=== PATIENT | male | born 1960 | race Caucasian/White ===

== ENCOUNTER → 2017-10-01 12:32 | Outpatient (CLI) | payer MEDICARE, MEDICAID, SELFPAY ==
[2017-10-01 13:17] LABS: Absolute Lymphocyte Count 2.51 X10^3/ul (0.83-4.51); Absolute Neutrophil Count 8.5 X10^3/uL (2.0-7.7); Basophil# 0.09 X10^3/uL; Basophil% 0.7 % (0-1); Eosinophil# 0.52 X10^3/uL; Eosinophils% 4.1 % (0-5); Hematocrit 42.7 % (40-54); Hemoglobin 14.1 g/dl (13.0-16.5); Lymphocyte # 2.51 X10^3/ul (4.0); Lymphocyte % 19.7 % (19-41); Mean Corpuscular Hgb 29.9 pg (27.0-32.0); Mean Corpuscular Volume 90.7 fL (80-94); Mean Platelet Vol. 9.8 fl (6.2-12.0); Monocyte# 1.14 X10^3/uL; Monocyte% 8.9 % (0-10); Neutrophil # 8.47 X10^3/uL (2.7-7.7); Neutrophil % 66.4 % (47-70); Platelet Count 265 K/mm3 (150-450); RBC Distribution Width CV 13.3 % (11.6-14.6); RBC Distribution Width SD 43.6 fl (35.1-43.9); Red Blood Count 4.71 M/mm3 (4.6-6.2); White Blood Count 12.8 K/mm3 (4.4-11.0)
[2017-10-01 13:19] LABS: POSITIVE COUNT NO; POSITIVE DIFFERENTIAL NO; POSITIVE MORPHOLOGY NO
[2017-10-01 13:41] LABS: ALB/GLOB Ratio 0.9 RATIO (0.9-2.4); AST(SGOT) 31 U/L (15-37); Alanine Aminotransfer ALT/SGPT 31 U/L (16-61); Albumin, Serum 3.9 g/dL (3.2-5.0); Alkaline Phosphatase 81 U/L (45-117); Anion Gap 9 (5-15); BUN 18 mg/dL (7-18); BUN/Creat Ratio 17.3 RATIO (10-20); Calcium,Total 9.1 mg/dL (8.5-10.1); Chloride 105 mmol/L (98-107); Creatinine, Serum 1.04 mg/dL (0.70-1.30); EST Glomerular Filtration Rate 78 mL/min (>60); Est Glom Filt Rate - Afr Amer 95 mL/min (>60); Globulin 4.5 g/dL (2.2-4.2); Glucose 83 mg/dL (74-106); Protein, Total 8.4 g/dL (6.4-8.2); Sodium Level 141 mmol/L (136-145)
== END ==
PROVIDERS: Family Provider Family Medicine Geriatric Medicine; PCP Family Medicine Geriatric Medicine; Visit Provider Family Medicine Geriatric Medicine
DX: R53.83 Other fatigue (principal)
CPT/HCPCS: 36415; 80053; 84443; 85025

== ENCOUNTER → 2017-12-01 15:52 | Outpatient (CLI) | payer MEDICARE, MEDICAID, SELFPAY ==
--- NOTE | 2017-12-01 15:59 | CT_ITS ---
STUDY: CT BRAIN WITHOUT CONTRAST REASON FOR EXAM: Male, 57 years old. Parkinson's disease RADIATION DOSAGE (If Supplied By Facility): CTDIvol = ( 44.99 ) mGy, DLP = ( 779.24 ) mGycm TECHNIQUE: Transaxial CT imaging of the brain was performed without administration of intravenous contrast material. Individualized dose optimization techniques were used for this CT. COMPARISON: None. FINDINGS: Normal soft tissue structures. The calvarium is intact. There is a nasal bone fracture of indeterminate age. There is moderate cerebral atrophy with widening of the extra-axial spaces and ventricular dilatation. Normal white matter tracts of the cerebral hemispheres. Normal basal ganglia and thalami. Normal brainstem. There is mild cerebellar atrophy. There is no intracranial hemorrhage. There are no findings of an acute ischemic infarction. Normal visualized paranasal sinuses. CT/Brain/Head without Contrast IMPRESSION: Chronic involutional changes of the brain. Nasal bone fracture of indeterminate age. Electronically Signed: Wan Leach MD at 16:23 EDT , Service support ,
[2017-12-01 17:44] LABS: Absolute Lymphocyte Count 2.36 X10^3/ul (0.83-4.51); Absolute Neutrophil Count 5.5 X10^3/uL (2.0-7.7); Basophil# 0.03 X10^3/uL; Basophil% 0.3 % (0-1); Eosinophil# 0.21 X10^3/uL; Eosinophils% 2.3 % (0-5); Hematocrit 19.2 % (40-54); Hemoglobin 6.7 g/dl (13.0-16.5); Lymphocyte # 2.36 X10^3/ul (4.0); Lymphocyte % 25.3 % (19-41); Mean Corp Hgb Conc 34.9 g/gl (32-36); Mean Corpuscular Hgb 32.7 pg (27.0-32.0); Mean Corpuscular Volume 93.7 fL (80-94); Mean Platelet Vol. 10.5 fl (6.2-12.0); Monocyte# 1.18 X10^3/uL; Monocyte% 12.7 % (0-10); Neutrophil # 5.52 X10^3/uL (2.7-7.7); Neutrophil % 59.3 % (47-70); Platelet Count 145 K/mm3 (150-450); RBC Distribution Width CV 14.1 % (11.6-14.6); RBC Distribution Width SD 48.1 fl (35.1-43.9); Red Blood Count 2.05 M/mm3 (4.6-6.2); White Blood Count 9.3 K/mm3 (4.4-11.0)
[2017-12-01 17:45] LABS: POSITIVE COUNT NO; POSITIVE DIFFERENTIAL NO; POSITIVE MORPHOLOGY NO
[2017-12-01 17:50] LABS: AST(SGOT) 25 U/L (15-37); Alanine Aminotransfer ALT/SGPT 17 U/L (16-61); Albumin, Serum 4.3 g/dL (3.2-5.0); Alkaline Phosphatase 70 U/L (45-117); Anion Gap 11 (5-15); BUN 16 mg/dL (7-18); BUN/Creat Ratio 15.8 RATIO (10-20); Calcium,Total 9.1 mg/dL (8.5-10.1); Chloride 99 mmol/L (98-107); Creatinine, Serum 1.01 mg/dL (0.70-1.30); EST Glomerular Filtration Rate 81 mL/min (>60); Est Glom Filt Rate - Afr Amer 98 mL/min (>60); Globulin 4.2 g/dL (2.2-4.2); Glucose 80 mg/dL (74-106); PSA,Total - Annual Screen 0.58 ng/mL (0.00-4.00); Potassium 3.8 mmol/L (3.5-5.1); Protein, Total 8.5 g/dL (6.4-8.2); Sodium Level 137 mmol/L (136-145); Thyroid Stim Hormone (TSH) 2.29 uIU/mL (0.358-3.74)
[2017-12-01 18:08] LABS: Phenytoin (Dilantin) Level 14.6 mL (10.0-20.0); Valproic Acid (Depakene) Level 72 ug/mL (50-100)
== END ==
PROVIDERS: Family Provider Family Medicine Geriatric Medicine; PCP Family Medicine Geriatric Medicine; Referring Provider Family Medicine Geriatric Medicine; Visit Provider Family Medicine Geriatric Medicine
DX: G20 Parkinson's disease (principal); R41.0 Disorientation, unspecified
CPT/HCPCS: 70450

== ENCOUNTER → 2017-12-01 16:23 | Outpatient (CLI) | payer MEDICARE, MEDICAID, SELFPAY | PROVIDERS: Family Provider Family Medicine Geriatric Medicine; PCP Family Medicine Geriatric Medicine; Visit Provider Family Medicine Geriatric Medicine | DX: R53.83 Other fatigue (principal); Z12.5 Encounter for screening for malignant neoplasm of prostate; F05 Delirium due to known physiological condition; G40.909 Epilepsy, unspecified, not intractable, without status epilepticus; G20 Parkinson's disease; R41.0 Disorientation, unspecified | CPT/HCPCS: 36415; 70450; 80053; 80164; 80184; 80185; 84153; 84443; 85025; G0103 ==

== ENCOUNTER 2017-12-02 09:18 | Outpatient (CLI) | payer MEDICARE, MEDICAID, SELFPAY ==
[2017-12-02] VITALS (7 sets, daily range): BP systolic 93–124; BP diastolic 67–87; PULSE 64–80; RESP 12–18; TEMP 35.8–36.8; O2SAT 95–100; BMI 21.9
[2017-12-02] MEDS: Furosemide 20 MG/2 ML VIAL IV (15:41)
--- NOTE | 2017-12-02 16:04 | NURSING ---
REPORT CALLED TO JEANIE JIMENEZ ON [facility], PT BEING TRANSPORTED TO [facility] TO COMPLETE TREATMENT SINCE THIS DEPARTMENT IS CLOSING. PATIENT AWARE AND AGREES
== END 2017-12-02 18:33 | disposition home or self-care (01) ==
LOC: MEDOUTP 11:36 → MS2 17:02
PROVIDERS: Family Provider Family Medicine Geriatric Medicine; PCP Family Medicine Geriatric Medicine; Referring Provider Family Medicine Geriatric Medicine; Visit Provider Family Medicine Geriatric Medicine
DX: D64.9 Anemia, unspecified (principal)
CPT/HCPCS: 36415; 36430; 86850; 86900; 86920; 86922; J7040; P9016; A4216; J1940

== ENCOUNTER → 2017-12-03 10:00 | Outpatient (CLI) | payer MEDICARE, MEDICAID, SELFPAY ==
[2017-12-03 12:13] LABS: Absolute Lymphocyte Count 2.46 X10^3/ul (0.83-4.51); Absolute Neutrophil Count 3.6 X10^3/uL (2.0-7.7); Basophil# 0.02 X10^3/uL; Basophil% 0.3 % (0-1); Eosinophil# 0.24 X10^3/uL; Eosinophils% 3.2 % (0-5); Hematocrit 46.2 % (40-54); Hemoglobin 15.3 g/dl (13.0-16.5); Lymphocyte # 2.46 X10^3/ul (4.0); Lymphocyte % 32.9 % (19-41); Mean Corp Hgb Conc 33.1 g/gl (32-36); Mean Corpuscular Hgb 30.4 pg (27.0-32.0); Mean Corpuscular Volume 91.7 fL (80-94); Mean Platelet Vol. 10.4 fl (6.2-12.0); Monocyte# 1.13 X10^3/uL; Monocyte% 15.1 % (0-10); Neutrophil % 48.2 % (47-70); POSITIVE COUNT NO; POSITIVE DIFFERENTIAL NO; POSITIVE MORPHOLOGY NO; Platelet Count 157 K/mm3 (150-450); RBC Distribution Width CV 15.2 % (11.6-14.6); RBC Distribution Width SD 50.8 fl (35.1-43.9); Red Blood Count 5.04 M/mm3 (4.6-6.2); White Blood Count 7.5 K/mm3 (4.4-11.0)
== END ==
PROVIDERS: Family Provider Family Medicine Geriatric Medicine; PCP Family Medicine Geriatric Medicine; Visit Provider Family Medicine Geriatric Medicine
DX: D64.9 Anemia, unspecified (principal)
CPT/HCPCS: 36415; 85025

== ENCOUNTER → 2017-12-10 11:18 | Outpatient (CLI) | payer MEDICARE, MEDICAID, SELFPAY ==
[2017-12-10 11:52] LABS: Absolute Lymphocyte Count 2.03 X10^3/ul (0.83-4.51); Absolute Neutrophil Count 7.6 X10^3/uL (2.0-7.7); Basophil# 0.02 X10^3/uL; Basophil% 0.2 % (0-1); Eosinophil# 0.18 X10^3/uL; Eosinophils% 1.6 % (0-5); Hematocrit 47.1 % (40-54); Hemoglobin 15.3 g/dl (13.0-16.5); Lymphocyte # 2.03 X10^3/ul (4.0); Mean Corp Hgb Conc 32.5 g/gl (32-36); Mean Corpuscular Hgb 30.1 pg (27.0-32.0); Mean Corpuscular Volume 92.5 fL (80-94); Mean Platelet Vol. 10.1 fl (6.2-12.0); Monocyte# 1.51 X10^3/uL; Monocyte% 13.4 % (0-10); Neutrophil # 7.55 X10^3/uL (2.7-7.7); Neutrophil % 66.7 % (47-70); Platelet Count 127 K/mm3 (150-450); RBC Distribution Width CV 13.8 % (11.6-14.6); RBC Distribution Width SD 46.5 fl (35.1-43.9); Red Blood Count 5.09 M/mm3 (4.6-6.2); White Blood Count 11.3 K/mm3 (4.4-11.0)
[2017-12-10 11:53] LABS: Differential Indicated SCAN CRITERIA MET; POSITIVE COUNT NO; POSITIVE DIFFERENTIAL YES; POSITIVE MORPHOLOGY NO
--- NOTE | 2017-12-10 12:57 | RAD_ITS ---
STUDY: X-RAY - THORACIC SPINE REASON FOR EXAM: Male, 57 years old. Fall and pain TECHNIQUE: 3 view(s) of the thoracic spine were obtained. # of Images: 4 COMPARISON: None. FINDINGS: Age-indeterminate compression deformities of T8, T9, and T12 with mild loss of height at T12 and moderate loss of height of T8 and T9. Age-indeterminate compression deformities of T4 and T5 with moderate to severe loss of height at those levels. Soft tissues are unremarkable. RAD/Thoracic Spine 3 Views IMPRESSION: Multiple age indeterminate thoracic compression deformities. Consider CT or MRI correlation if possible. Electronically Signed: Dante Ayala MD at 7:51 EDT Tel , Service support ,
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
== END ==
PROVIDERS: Family Provider Family Medicine Geriatric Medicine; PCP Family Medicine Geriatric Medicine; Referring Provider Family Medicine Geriatric Medicine; Visit Provider Family Medicine Geriatric Medicine
DX: M54.6 Pain in thoracic spine (principal); W19.XXXA Unspecified fall, initial encounter; D64.9 Anemia, unspecified
CPT/HCPCS: 36415; 72072; 72100; 85025

== ENCOUNTER 2017-12-12 17:42 | Inpatient (IN) | payer MEDICARE, MEDICAID, SELFPAY ==
[2017-12-12] VITALS (7 sets, daily range): BP systolic 103–122; BP diastolic 59–98; PULSE 97–109; RESP 16–28; TEMP 36.8–37.4; O2SAT 85–98; BMI 24.0; BMI 24.1
--- NOTE | 2017-12-12 17:58 | CT_ITS ---
STUDY: CT ABDOMEN AND PELVIS WITHOUT CONTRAST REASON FOR EXAM: Male, 57 years old. Fall. Rib pain. RADIATION DOSAGE (If Supplied By Facility): CTDIvol = ( 14.55 ) mGy, DLP = ( 1299.54 ) mGycm TECHNIQUE: Transaxial images were obtained from the dome of the diaphragm to the symphysis pubis without oral contrast, and without intravenous contrast. Sagittal and coronal images were reconstructed. Individualized dose optimization techniques were used for this CT. COMPARISON: None. FINDINGS: Limited views through the lower chest show mild atelectasis or scarring changes in both posterior lung bases and probable scarring in the right posterior costophrenic angle. Normal liver. There are multiple gallstones. Normal spleen. Normal pancreas. Normal bilateral adrenal glands. Normal right kidney. Normal left kidney. Evaluation of the GI tract is limited by absence of oral contrast. Cannot exclude stomach wall thickening. No dilated loops of bowel or evidence for obstruction. Cannot exclude segmental thickening of the whelan of the small or large bowel. Cannot exclude enteritis or colitis. Moderate diffuse fecal retention. Appendix within normal limits. Normal abdominal aorta. Normal inferior vena cava. Normal retroperitoneum. Distended urinary bladder. There is enlargement of the prostate gland. Normal abdominal wall. There are diffuse degenerative changes of the visualized lumbar spine. There is diffuse demineralization. There is a right hip arthroplasty. CT/Abdomen/Pelvis without Cont IMPRESSION: There is no definite acute abnormality. No acute fractures are seen. There is cholelithiasis. Electronically Signed: Dayron Cordova MD at 19:25 EDT , Service support ,
--- NOTE | 2017-12-12 17:59 | CT_ITS ---
STUDY: CT CHEST WITHOUT CONTRAST REASON FOR EXAM: Male, 57 years old. Fall. Rib pain. RADIATION DOSAGE (If Supplied By Facility): CTDIvol = ( 14.55 ) mGy, DLP = ( 1299.54 ) mGycm TECHNIQUE: Transaxial imaging was performed without the administration of intravenous contrast material. Individualized dose optimization techniques were used for this CT. COMPARISON: None. FINDINGS: Hyperexpansion of the lungs and evidence for chronic pulmonary disease with probable mild interstitial scarring and fibrosis. Streaky atelectasis or scarring in both posterior lung bases. Thickening in both posterior costophrenic angles consistent with scarring. Right apical scarring. No definite infiltrates. No pneumothorax. No effusions. Normal heart and pericardium. Normal mediastinum. Normal hilar regions. Normal unenhanced pulmonary arteries. Normal aorta arch and descending thoracic aorta. Skeletal structures show demineralization greater than expected for age, degenerative changes throughout the bones, and numerous compression fractures throughout the thoracic spine of indeterminate age. Acute compression fractures cannot be excluded. There are also old nondisplaced rib fractures. No definite acute rib fractures are seen. CT/Chest without Contrast IMPRESSION: COPD with areas of fibrosis greater than expected for age. Demineralization and degenerative changes throughout the skeletal structures. Numerous compression fractures of the thoracic spine of indeterminate age. These findings are all also advanced for age. Electronically Signed: Dayron Cordova MD at 19:30 EDT , Service support ,
--- NOTE | 2017-12-12 17:59 | RAD_ITS ---
STUDY: X-RAY - LEFT FEMUR REASON FOR STUDY: Male, 57 years old. Fall. Pain. TECHNIQUE: Radiological exam, femur, minimum 2 views COMPARISON: None. FINDINGS: Abnormal configuration of the junction of the femoral head and neck consistent with fracture although not very well delineated. On further review of the CT of the abdomen and pelvis of the same day, there is in fact an impacted fracture of the left femoral neck. IMPRESSION: Impacted nondisplaced fracture of the left femoral neck with no dislocation of the hip. Electronically Signed: Dayron Cordova MD at 19:31 EDT , Service support , RAD/Femur Min 2 Views
--- NOTE | 2017-12-12 18:05 | ED.DCSUM_ITS ---
- ER Visit Summary Date of Service: 12/12/17 Chief Complaint: Fall History of Present Illness: The patient is a 57 M with history of Parkinson's and seizures. Patient states that he fell around 9 AM this morning. He is not sure if his feet just got tangled or if he got lightheaded. He has reportedly had multiple falls recently. He is been able to ambulate with a walker since that time. He is complaining of pain to the right lower ribs as well as to the proximal medial left thigh. He has not yet taken anything for pain. He denies striking his head or loss of consciousness Physical Examination: Blood pressure is 103/84, temperature 98.2, heart rate 107, respiratory rate 16, pulse ox 94% on room air. Patient sitting upright in bed. He is in no acute distress. Head neck examination reveals no sign of trauma. Heart is slightly tachycardic and regular. Lung sounds are clear with good air movement bilaterally. He does have reproducible tenderness of the right lower anterior ribs. There is no crepitus. There are no abrasions or ecchymosis noted. Abdomen is soft with epigastric tenderness. There is no guarding or rebound. Lower extremity examination reveals mild tenderness over the medial proximal left thigh. There is no pain with logroll. He has old appearing abrasions noted to the anterior left knee. Neuro exam reveals Parkinson's tremor. There are no focal deficits noted. Test Results: Left femur x-rays reveal an impacted nondisplaced fracture of the left femoral neck. CT the chest shows COPD changes. There are numerous compression fractures of indeterminate age. CT abdomen pelvis shows no definite acute abnormality. CBC was a white count 11.8 with 140,000 platelet count. Chemistry studies significant for potassium 3.4. Dilantin level is 16.1. Phenobarbital is high at 52.4. Emergency Department Course and Treatment: Patient was given morphine and Zofran along with IV fluids. On repeat evaluation he is resting comfortably. Patient had previously had surgery with Dr. Duke. I spoke with Dr. Cardenas as well as the hospitalist. Treatment Plan: [] Disposition: Admit Impression: 1. Fall with left femoral neck fracture 2. Supratherapeutic phenobarbital level. This note was generated with [employer] dictation software. It may contain incorrect words, spelling, and punctuation that were not noted in review of the chart prior to signing ED Disposition - Plan for ED Patient: Chief Complaint: Fall Referrals: Jose Alvarez Chi, MD [Primary Care Provider] -
[2017-12-12] MEDS: 0.9% Normal Saline 1,000 ML 150 ML IV (18:07)
[2017-12-12] MEDS: Morphine 4 MG/ML Syringe IV (18:07)
[2017-12-12] MEDS: Ondansetron 4 MG/2 ML Vial IV (18:07)
[2017-12-12 18:15] LABS: Absolute Lymphocyte Count 1.37 X10^3/ul (0.83-4.51); Absolute Neutrophil Count 9.3 X10^3/uL (2.0-7.7); Basophil# 0.02 X10^3/uL; Basophil% 0.2 % (0-1); Eosinophil# 0.03 X10^3/uL; Eosinophils% 0.3 % (0-5); Hematocrit 46.7 % (40-54); Hemoglobin 15.2 g/dl (13.0-16.5); Lymphocyte # 1.37 X10^3/ul (4.0); Lymphocyte % 11.6 % (19-41); Mean Corp Hgb Conc 32.5 g/gl (32-36); Mean Corpuscular Hgb 30.1 pg (27.0-32.0); Mean Corpuscular Volume 92.5 fL (80-94); Mean Platelet Vol. 9.8 fl (6.2-12.0); Monocyte# 1.07 X10^3/uL; Neutrophil # 9.32 X10^3/uL (2.7-7.7); Neutrophil % 78.7 % (47-70); Platelet Count 140 K/mm3 (150-450); RBC Distribution Width CV 13.8 % (11.6-14.6); RBC Distribution Width SD 45.9 fl (35.1-43.9); Red Blood Count 5.05 M/mm3 (4.6-6.2); White Blood Count 11.8 K/mm3 (4.4-11.0)
[2017-12-12 18:16] LABS: POSITIVE COUNT NO; POSITIVE DIFFERENTIAL NO; POSITIVE MORPHOLOGY NO
[2017-12-12 18:26] LABS: Anion Gap 9 (5-15); BUN 15 mg/dL (7-18); BUN/Creat Ratio 18.1 RATIO (10-20); Calcium,Total 8.6 mg/dL (8.5-10.1); Chloride 98 mmol/L (98-107); Creatinine, Serum 0.83 mg/dL (0.70-1.30); EST Glomerular Filtration Rate 101 mL/min (>60); Est Glom Filt Rate - Afr Amer 123 mL/min (>60); Glucose 124 mg/dL (74-106); Potassium 3.4 mmol/L (3.5-5.1); Sodium Level 134 mmol/L (136-145)
[2017-12-12 18:55] LABS: Phenytoin (Dilantin) Level 16.1 mL (10.0-20.0)
--- NOTE | 2017-12-12 18:56 | ED.RN ---
PT PHENOBARB LEVEL 52.4. DR. PONCE INFORMED.
--- NOTE | 2017-12-12 19:21 | ED.RN ---
PATIENT'S O2 SATS WERE DROPPING TO 81% WHILE HE WAS SLEEPING. PATIENT WAS PUT ON 2L OF O2 AND WAS AROUSED AND SATS CAME BACK UP TO 98%.
--- NOTE | 2017-12-12 20:26 | PCM.HP.STD ---
Problem List (1) Nondisplaced fracture of neck of left femur Status: Acute (2) Multiple falls Status: Acute (3) Compression fx, thoracic spine Status: Acute History of Present Illness Date of Admission: 12/12/17 Chief Complaint: Multiple falls The patient is a 57 year old M with a significant history of Parkinson disease and epilepsy who presented with a fall on the same day of his admission. Also patient reports of excruciating pain in his left hip and in his right rib. At emergency department radiographic findings showed and Nondisplaced fracture of left femoral neck; numerous compression fractures of the thoracic spine of indeterminate age. ED doctor consulted orthopedic doctor who will see patient in a.m. Of note in the past week patient had multiple falls. It is reported that anytime patient have high phenobarbital levels patient falls. On admission at the ED patient was found to have elevated phenobarbital level. Past Medical History Medical History: Medical History (Last Reviewed 12/12/17 @ 21:51 by Jerad Tyler MD) BPH (benign prostatic hyperplasia) N40.0 Parkinson disease G20 Seizure disorder G40.909 Allergies No Known Allergies Allergy (Verified 12/12/17 17:43) Home Medications: Ambulatory Orders Medication Instructions Recorded atorvastatin 40 mg tablet 40 mg PO QHS 12/03/17 celecoxib 200 mg capsule 200 mg PO BID 12/03/17 divalproex 250 mg tablet,delayed 500 mg PO QHS 12/03/17 release levothyroxine 50 mcg capsule 50 mcg PO DAILY 12/03/17 mirtazapine 30 mg tablet 15 mg PO DAILY 12/03/17 phenobarbital 32.4 mg tablet 32.4 mg PO TID 12/03/17 phenytoin sodium extended 100 mg 300 mg PO DAILY 12/03/17 capsule tamsulosin 0.4 mg capsule 0.4 mg PO DAILY 12/03/17 Ergocalciferol [Vitamin D] 50,000 unit PO Q7D 12/12/17 Surgical History: Surgical History (Last Reviewed 12/13/17 @ 09:21 by Jerad Tyler MD) S/P hip replacement Z96.649 Surgical History: - - Patient with a prior Right hip replacement Smoking Status: Current every day smoker Tobacco Use: Chew Alcohol: None - *Family History Maternal Family History: Family History (Last Updated 12/12/17 @ 21:53 by Jerad Tyler MD) Mother Breast cancer Father Mouth cancer Review of Systems Constitutional: Denies: Chills, Fever, Weight Change HEENT: Denies: Head Aches, Sinus Congestion, Sinus Drainage Cardiovascular: Denies: Chest Pain, Palpitations Respiratory: Denies: Cough, Shortness of breath at rest, Sputum production Gastrointestinal: Denies: Abdominal Pain, Nausea, Vomiting Genitourinary: Denies: Dysuria Musculoskeletal: Denies: Joint Pain, Joint Tenderness Skin: Denies: Rash, Wounds Neurological: Denies: Numbness, Tingling, Focal weakness Psychiatric: Denies: Anxiety, Depression, Homicidal Ideations, Suicidal Ideations Hematologic/ Lymphatic: Denies: Easy Bruising, Easy Bleeding VTE Information - Inpt Only VTE Present on Admission: No VTE Mechan Device Prophylaxis: None VTE Pharm Prophylaxis ordered?: Yes Patient Problems: Active and Suspected Problems (Last Reviewed 12/12/17 @ 21:51 by Jerad Tyler MD) Nondisplaced fracture of neck of left femur (Acute) Multiple falls (Acute) Compression fx, thoracic spine (Acute) - Physical Exam General: Alert, Oriented x3, Cooperative HEENT: Atraumatic, PERRLA, EOMI, Normocephalic Neck: Supple, No JVD, Negative Carotid Bruits Lungs: Clear to auscultation, Normal air movement Cardiovascular: Regular rate, No murmurs Abdomen: Bowel Sounds Present, Soft, Non Tender Extremities: No edema, Capillary Refill Less than 3 Seconds, - - Right flank tenderness Skin: No rashes, No breakdown Musculoskeletal: - - Palpation of left hip did not produce any tenderness. Neurological: - - Noted to have bilateral hands tremor. Psych/Mental Status: Normal Affect, Appropriate Vital Signs Temp Pulse Resp BP Pulse Ox 99.3 F H 103 H 18 114/98 H 98 12/12/17 20:20 12/12/17 20:20 12/12/17 20:20 12/12/17 20:20 12/12/17 20:20 Oxygen Flow Rate (L/min) 2 Oxygen Delivery Method Nasal Cannula Weight: 71.9 kg Body Mass Index (BMI) 24.0 Laboratory Tests Past 24 Hrs 12/12/17 12/12/17 12/12/17 18:05 18:05 18:05 WBC 11.8 H RBC 5.05 Hgb 15.2 Hct 46.7 MCV 92.5 MCH 30.1 MCHC 32.5 RDW 13.8 RDW Differential 45.9 H Plt Count 140 L MPV 9.8 Immature Gran % (Auto) 0.200 Neut % (Auto) 78.7 H Lymph % (Auto) 11.6 L [place] % (Auto) 9.0 Eos % (Auto) 0.3 Baso % (Auto) 0.2 Absolute Neuts (auto) 9.3 H Absolute Lymphs (auto) 1.37 Total Counted Not Reportable Sodium 134 L Potassium 3.4 L Chloride 98 Carbon Dioxide 27.0 Anion Gap 9 BUN 15 Creatinine 0.83 Estim Creat Clear Calc 95.00 Est GFR (MDRD) Af Amer 123 Est GFR (MDRD) Non-Af 101 BUN/Creatinine Ratio 18.1 Glucose 124 H Calcium 8.6 Phenytoin 16.1 Phenobarbital 52.4 H* Assessment/Plan All Active Problems (Last Reviewed 12/12/17 @ 21:51 by Jerad Tyler MD) Nondisplaced fracture of neck of left femur (Acute) Multiple falls (Acute) Compression fx, thoracic spine (Acute) The patient is a 57 year old M with a significant history of Parkinson disease and epilepsy who presented with a fall and found to have elevated phenobarbital level and radiographic findings of Nondisplaced fracture of left femoral neck; and numerous compression fractures of the thoracic spine of indeterminate age. Impacted nondisplaced fracture of the left femoral neck with no dislocation of the hip Pain controlled with oxycodone as needed morphine as needed. Antiemetics and bowel regimen in the setting of narcotic use initiated. PT/INR ordered. Patient has no chest pain. Will order EKG for baseline Okay to proceed with surgery from medical standpoint. Orthopedic surgeon consulted. Celebrex continued Compression fracture of the thoracic spine of indeterminate age Pain control as above. Incentive spirometer to prevent pneumonia. We will defer further management to orthopedic. History of epilepsy Phenobarbital held at this time due to supratherapeutic level. Valproic acid continued Dilantin continued Consider conversation with neurology. Hypothyroidism Synthroid continued. Depression Remeron continued Parkinson disease Patient noted with no medication for Parkinson's Consider conversation with PCP. BPH Flomax continued Hyperlipidemia Lipitor continued. Tobacco abuse Patient chew tobacco Nicotine patch ordered Inpatient consult smoking cessation. DVT prophylaxis Subcutaneous heparin. Code Visit Inpatient E&M: 21078 Init Hosp L3
[2017-12-12 22:12] LABS: Valproic Acid (Depakene) Level 65 ug/mL (50-100)
[2017-12-12] MEDS: Morphine 2 MG/ML Syringe IV (22:15)
[2017-12-12] MEDS: Atorvastatin Calcium 40 MG Tablet PO (22:49)
[2017-12-12] MEDS: Celecoxib 200 MG Capsule PO (22:49)
[2017-12-12] MEDS: oxyCODONE 5 MG Tablet PO (22:49)
[2017-12-12] MEDS: Divalproex Sodium 250 MG Tablet 500 MG PO (22:49)
[2017-12-12] MEDS: Heparin Injection (Vial) 5,000 UNIT/ML VIAL 5000 UNIT SC (22:49)
[2017-12-12] MEDS: Mirtazapine 15 MG Tablet PO (22:49)
[2017-12-13] VITALS (17 sets, daily range): BP systolic 86–112; BP diastolic 62–81; PULSE 94–112; RESP 16–18; TEMP 36.2–37.1; O2SAT 88–100; BMI 24.0
--- NOTE | 2017-12-13 | HIP_PTH ---
PATIENT: MIKE ADAMS LOC: [facility] U#:[id number] AGE/SX: 57/M ROOM: [facility] [place] RE12/12/[address]: Dr. Dexter Vásquez MD : 1960 BED: 1 DIS: 12/15/2017 SPEC #: [id number] RECD: 12/13/17 15:00 STATUS: FLASH RAMOS #: [id number] AZUL: 12/13/17 00:[address]: Stevo Walden DEPT: SURGICAL PATHOLOGY RECD BY: Asa Rashid ENTERED: 12/13/17 15:00 SP TYPE: TOTAL HIP OTHR DR: MD Dr. Dexter Lui MD Dr. Steven Widmer, MD Dr. Tai Chi Kwok, MD Tissues: Hip, NOS Procedures: Decalcification bone/plaque Surgery Specimen Level IV Comments: @ Ordering doctor for DEC edited from to @ by KENY at 12/14/17 0935 @ Ordering doctor for SUIV edited from to @ by KENY at 12/14/17 0935 @ Submitting doctor edited from to @ by RGOOD at 12/14/17 0935 HEADER OPERATION: Total hip replacement PRE-OP DIAGNOSIS: Nondisplaced fracture of neck of left femur TISSUE SUBMITTED: Left hip bone and soft tissue MICROSCOPIC DIAGNOSIS Left hip bone and soft tissue, total hip replacement: Femoral head and detached pieces of bone with focal area of hemorrhage, clinically nondisplaced fracture of neck of left femur. A piece of dense fibroconnective tissue. SJ:sanna 12/16/17 MICROSCOPIC DESCRIPTION Slides are reviewed. GROSS DESCRIPTION Received in fixative is one container labeled with the patient's name and designated left hip bone and soft tissue. The specimen consists of a femoral head measuring 5 x 4.5 x 4.5 cm. The articular surface is smooth. The resection margin is irregular and hemorrhagic. Also present in the container are multiple detached pieces of bone and bone reamings measuring in aggregate 6 x 6 x 3 cm. A piece of angela, indurated tissue is noted measuring 3 x 1 x 0.5 cm. Channel Machine Operator sections are submitted in three cassettes as follows: 1 - indurated piece of tissue, entirely submitted, 2 - femoral head, 3 - detached pieces of bone. Cassettes 2 & 3 are submitted after decalcification. / Roel 12/13/17 CPT: 15624, [id number]
[2017-12-13] MEDS: Morphine 2 MG/ML Syringe IV (04:57)
--- NOTE | 2017-12-13 05:55 | EKG12_ITS ---
Test Reason : MORNING EKG Blood Pressure : / mmHG Vent. Rate : 097 BPM Atrial Rate : 097 BPM P-R Int : 144 ms QRS Dur : 100 ms QT Int : 360 ms P-R-T Axes : 068 124 049 degrees QTc Int : 457 ms Normal sinus rhythm Right ventricular hypertrophy Abnormal ECG No previous ECGs available Confirmed by BRETT LIEBERMAN ([id number]), primer expeditor and drier CARMINA BILLINGS ([id number]) on 12/21/2017 12:54:15 PM Referred By: DERIAN Confirmed By:BRETT LIEBERMAN
[2017-12-13 07:25] LABS: International Normalized Ratio 1.2; Prothrombin Time (Protime)PT. 14.7 SECONDS (11.7-14.9)
[2017-12-13 07:44] LABS: Anion Gap 9 (5-15); BUN 12 mg/dL (7-18); BUN/Creat Ratio 13.5 RATIO (10-20); Calcium,Total 8.2 mg/dL (8.5-10.1); Chloride 105 mmol/L (98-107); Creatinine, Serum 0.89 mg/dL (0.70-1.30); EST Glomerular Filtration Rate 93 mL/min (>60); Est Glom Filt Rate - Afr Amer 113 mL/min (>60); Glucose 112 mg/dL (74-106); Potassium 3.6 mmol/L (3.5-5.1); Sodium Level 141 mmol/L (136-145)
[2017-12-13 07:50] LABS: Absolute Lymphocyte Count 1.44 X10^3/ul (0.83-4.51); Absolute Neutrophil Count 5.4 X10^3/uL (2.0-7.7); Basophil# 0.02 X10^3/uL; Basophil% 0.3 % (0-1); Eosinophil# 0.19 X10^3/uL; Eosinophils% 2.4 % (0-5); Hematocrit 42.2 % (40-54); Hemoglobin 13.9 g/dl (13.0-16.5); Lymphocyte # 1.44 X10^3/ul (4.0); Lymphocyte % 18.3 % (19-41); Mean Corp Hgb Conc 32.9 g/gl (32-36); Mean Corpuscular Hgb 30.2 pg (27.0-32.0); Mean Corpuscular Volume 91.7 fL (80-94); Mean Platelet Vol. 10.1 fl (6.2-12.0); Monocyte# 0.81 X10^3/uL; Monocyte% 10.3 % (0-10); Neutrophil # 5.39 X10^3/uL (2.7-7.7); Neutrophil % 68.4 % (47-70); Platelet Count 124 K/mm3 (150-450); RBC Distribution Width CV 13.9 % (11.6-14.6); RBC Distribution Width SD 45.8 fl (35.1-43.9); White Blood Count 7.9 K/mm3 (4.4-11.0)
[2017-12-13 07:59] LABS: Thyroid Stim Hormone (TSH) 4.78 uIU/mL (0.358-3.74)
[2017-12-13 08:07] LABS: POSITIVE COUNT NO; POSITIVE DIFFERENTIAL NO; POSITIVE MORPHOLOGY NO
--- NOTE | 2017-12-13 08:11 | NURSING ---
report called to Mayra in [facility]. [facility] here to transport pt.
--- NOTE | 2017-12-13 09:40 | RAD_ITS ---
STUDY: X-RAY - FRONTAL AND LATERAL VIEWS OF THE HIPS REASON FOR EXAM: Male, 57 years old. Postop total hip replacement. TECHNIQUE: Radiological exam, hip, bilateral; 2 images COMPARISON: Frontal and lateral views of the left femur December 12, 2017. FINDINGS: There is a non-specific bowel gas pattern. Normal visualized soft tissue structures. There is diffuse demineralization of the osseous structures. There is mild narrowing of the visualized sacroiliac joints, consistent with degenerative osteoarthritic changes. Normal visualized bilateral iliac wings and sacrum. Normal bilateral superior and inferior pubic rami. Normal pubic symphysis. Normal bilateral ischial tuberosities. The patient has undergone prior right total hip arthroplasty, with a metal bipolar prosthesis in place. The patient has now undergone left total hip arthroplasty. Following resection of the femoral head and neck, a metal bipolar hip prosthesis was placed. The femoral and acetabular components appear well seated, and in anatomic alignment. Gas lucencies in the adjacent soft tissues are consistent with recent surgery. A number of metal skin shruthi are seen along the lateral soft tissues as well. There is no demonstrated acute fracture. RAD/Hip Min 2 Views (Portable) IMPRESSION: Status post left total hip arthroplasty. Electronically Signed: Jan Lee MD at 12:11 EDT , Service support ,
--- NOTE | 2017-12-13 10:56 | PCM.IMDPSTOP ---
Immediate Post-Op Note Date of Procedure: 12/13/17 Primary Surgeon/Physician: Stevo Walden jewelry consultant: Rudi Rhodes Pre-Operative Diagnosis: Displaced left subcapital hip fracture Post-Operative Diagnosis: same Surgery/Procedure Performed:: Left THR Description of Surgical Findings:: see op note Estimated Blood Loss: 100cc Specimen's removed: femoral head Type of Anesthesia:: General ASA Class: ASA3 Severe Disease - Admit VTE Documentation VTE Present on Admission: No VTE Pharm Prophylaxis ordered?: Yes
--- NOTE | 2017-12-13 10:59 | OP.PN_ITS ---
Immediate Post-Op Note Date of Procedure: 12/13/17 Primary Surgeon/Physician: Stevo Walden automotive repair technician: Rudi Rhodes Pre-Operative Diagnosis: Displaced left subcapital hip fracture Post-Operative Diagnosis: same Surgery/Procedure Performed:: Left THR Description of Surgical Findings:: see op note Estimated Blood Loss: 100cc Specimen's removed: femoral head Type of Anesthesia:: General ASA Class: ASA3 Severe Disease - Admit VTE Documentation VTE Present on Admission: No VTE Pharm Prophylaxis ordered?: Yes
--- NOTE | 2017-12-13 10:59 | PCM.OP.BLANK ---
Operative Report Date of Procedure: 12/13/17 Primary Surgeon/Physician: Stevo Walden operations support specialist: Rudi Rhodes PA-c operations support specialist: Pre-Operative Diagnosis: Displaced subcapital left hip fx Post-Operative Diagnosis: same Surgery/Procedure Performed: Left THR Estimated Blood Loss: 100cc Specimen's Removed: femoral head Type of Anesthesia: General ASA Class: ASA3 Severe Disease Implants: [Azar Accolade type 2 size 8 stem, 54 mm hemispherical cup with MDM liner ] Surgical Indications: Patient has a displace subcapital fracture in the [left ] hip. The pain affects their ability to enjoy life and complete activities of daily living without discomfort. Patient has consented to undergo the above procedure Procedure Description: The patient was greeted in the preoperative area the [left ] hip was marked with surgical marker preoperative antibiotics administered. The patient was then taken to or suite in stable condition. Preoperative tranexamic acid was also utilized. Once the patient was placed in the supine position on the operating room table and once adequate anesthesia was obtained they were then placed in the lateral decubitus position with the surgical hip facing the field. All bony prominences were well-padded. A commercial hip position was utilized. The appropriate extremity was then prepped and draped in usual sterile fashion. Ioban was placed on the skin. Surgical timeout was performed and surgery was commenced. A standard posterior approach to the hip was then performed. Incision was planned and carried out with a #10 blade scalpel. Dissection was then carried length of the incision to the IT band which was split proximally and distally. A Charnley retractor was then placed for soft tissue retraction exposing the piriformis. A standard posterior capsulotomy was performed. A midcervical fracture of the femoral neck was identified.. A femoral neck osteotomy guide was used to sweta the proximal femur. A femoral osteotomy was then created approximately 1 fingerbreadth above the lesser trochanter. This was measured and placed on the back table. Once this was complete acetabular retractors were placed anteriorly and posteriorly. Labrum was then removed from the acetabulum exposing the entire cup of the acetabulum. Sequential reaming was then commenced and the acetabulum was medialized and sequentially widened in order to accommodate appropriate size cup. The acetabular cup was then impacted into position to the appropriate depth referencing approximately 30? anteversion and 45? of inclination. Excellent purchase was obtained. An appropriate size MDM liner was then placed. Attention was then turned to the femoral preparation. The hip was placed in the 90/90 position and a lateralizing box osteotome was utilized. Femoral starting awl was used followed by sequential broaching to the appropriate size. Excellent purchase was obtained with the stem no stem subsidence and excellent rotational stability was confirmed. A calcar reamer was then used in the trial head neck was placed on the broach. The hip was then located and taken through full range of motion flexion internal and external rotation as well as extension. Excellent stability was noted no impingement was identified of the components and leg lengths appear to be appropriate. The hip was at this point dislocated and the trial femoral components were removed. The final femoral stem was then implanted and impacted to the appropriate depth. Again excellent purchase was obtained no stem subsidence or rotational instability was noted. The hip was once again trialed and confirmation of leg length and stability was performed. Soft tissue tension also appeared to be appropriate. At this point the hip was redislocated and the trunnion was cleaned and dried meticulously in the appropriate size MDM femoral head was placed on the clean dry trunnion using a 12/14 Guardado taper. The hip was once again relocated and again taken through full range of motion. I did inject a cocktail of postoperative pain medication in the deep and superficial tissues. Copious irrigation was performed. Anatomic closure of the piriformis tendon was performed through drill holes in the greater trochanter. A #1 Vicryl 0 Vicryl was utilized in subcutaneous tissue and surgical shruthi were placed in the skin. A well-padded nonadherent dressing was applied. Patient was taken to PACU in stable condition. No complications were identified. Will follow standard postop protocol for total hip arthroplasty. My certified pathology assistant played a vital role in the procedure beginning with positioning, holding retraction of soft tissues, positioning the leg to optimize visualization during the procedure and assisting with wound closure.
--- NOTE | 2017-12-13 11:44 | CASEMGMT ---
BARBARA GRAHAM Assesmment: Pt presented to ER with Nondisplaced fracture of L femur neck. Hx of Parkinson disease and epilepsy. Fall @ home. Pt in surgery @ time of assessment. rental clerk Mary Hernandez in room, able to speak with BARBARA GRAHAM. Per July, she is caregiver for pt, stating that I'm almost always with him. -Pt has been to [facility] in February,. CM will need to review PT/OT and speak with pt re: maria luisa planning. PCP: Dr. Alvarez Preferred Pharmacy: [facility] Insurance: [facility] Prescription Benefit:? yes Living Will/HPOA: none. Pt's caregiver states she and pt have discussed and he would Living Arrangements: One story home. Transportation: field care advocate drives. DME/HHC: uses walker. ? Plan: undetermined. Anticipate SNF vs Inpt Rehab. GIORGI Zuniga updated.
[2017-12-13 11:59] LABS: Hematocrit 44.8 % (40-54); Hemoglobin 14.4 g/dl (13.0-16.5); Mean Corp Hgb Conc 32.1 g/gl (32-36); Mean Corpuscular Volume 93.3 fL (80-94); Mean Platelet Vol. 9.7 fl (6.2-12.0); Platelet Count 126 K/mm3 (150-450); RBC Distribution Width CV 14.1 % (11.6-14.6); RBC Distribution Width SD 48.1 fl (35.1-43.9); White Blood Count 12.3 K/mm3 (4.4-11.0)
[2017-12-13 12:15] LABS: Scan Indicated on CBC? Y/N NO
[2017-12-13 12:16] LABS: Anion Gap 10 (5-15); BUN 11 mg/dL (7-18); BUN/Creat Ratio 12.1 RATIO (10-20); Calcium,Total 7.9 mg/dL (8.5-10.1); Chloride 107 mmol/L (98-107); Creatinine, Serum 0.91 mg/dL (0.70-1.30); EST Glomerular Filtration Rate 92 mL/min (>60); Est Glom Filt Rate - Afr Amer 111 mL/min (>60); Estimated Creatinine Clearance 86.65 ml/min; Glucose 127 mg/dL (74-106); Sodium Level 141 mmol/L (136-145); T4 Free Direct 1.19 ng/dL (0.76-1.46)
--- NOTE | 2017-12-13 12:21 | CASEMGMT ---
Social Work Note MS[facility] Collaboration with [facility] social services Christiane TATE regarding reported interest in completion of advanced directives. Patient currently in surgery right now, so unable to discuss with patient at this time. Spoke with BARBARA Garcia who reports that patient has history of placement at [facility] earlier in the year, uncertain whether patient would want to return to this facility, though rehab level of care may also be something to be looked at. This bond underwriter noted in chart that patient with diagnosis of Parkinson, so this diagnosis in addition to hip fracture may indicate possible qualification for rehab level of care. Noted in chart that patient has recently been using a walker for ambulation. Will need to see how patient does with PT and OT services before making determination as to what level care patient may need at discharge. Updated Lynsey TATE. Plan: Social work to follow and plan to see patient at a later time about interest in advanced directive completion. Collaboration with BARBARA GRAHAM and monitor for PT/OT evaluations and if indicated follow up to assist with referrals to SNF versus rehab levels of care. -ZAIN Adames, SOLDERING TECHNICIAN
--- NOTE | 2017-12-13 14:02 | CASEMGMT ---
Addendum entered by Christiane Lemus 12/13/17 14:38: SW did receive a message from [facility] that they are able to accept pt if pt is agreeable to RU Original Note: Social Work Note SW updated that pt's caregiver July would like to complete advanced directives. SW in to speak with pt and pt's caregiver July. GIORGI informed July that pt just had surgery today and this worker would like to wait till tomorrow to complete advanced directives as pt just got back from surgery. GIORGI informed July that typically this worker will be available on the floor around 9:00am. July states that she can be at [facility] around then. GIORGI explained that pt will need to be alert and orientated and able to state his wishes for advanced directives. GIORGI also explained that this worker is awaiting PT/OT evaluations to determine discharge plans. July states that pt was previously independent and she has been his caregiver for around eight years. GIORGI educated July to RU as pt qualifies for RU with a hip fracture. GIORGI informed July that PT/OT will work with pt and will determine what level of care pt will need at discharge. July states understanding. SW to meet with pt and pt's caregiver July tomorrow once PT/OT evaluates pt to discuss discharge plans. GIORGI will also completed advanced directives with pt tomorrow. Plan: TBD Christiane Lemus RIGGING LOFT REPAIRER, INBOUND CUSTOMER SERVICE REPRESENTATIVE
--- NOTE | 2017-12-13 14:46 | PN_ITS ---
<Pepito Lopez - Last Filed: 12/13/17 14:31> Patient Problems: Active and Suspected Problems (Last Reviewed 12/12/17 @ 21:51 by Jerad Tyler MD) Nondisplaced fracture of neck of left femur (Acute) Multiple falls (Acute) Compression fx, thoracic spine (Acute) Subjective: Pt resting comfortably in bed NAD. No SOB, cough, nausea, vomiting. Sensation intact. - Physical Exam General: Alert, Oriented x3, Cooperative HEENT: Atraumatic, PERRLA, EOMI, Normocephalic Neck: Supple, No JVD, Negative Carotid Bruits Lungs: Clear to auscultation, Normal air movement Cardiovascular: Regular rate, No murmurs Abdomen: Bowel Sounds Present, Soft, Non Tender Extremities: No edema, Capillary Refill Less than 3 Seconds Skin: No rashes, No breakdown Musculoskeletal: No Tenderness to Palpation of Joints or Extremities Neurological: Cranial nerves II-XII grossly intact Psych/Mental Status: Normal Affect, Appropriate, Alert and oriented to time, place, person, mood and affect Vital Signs Temp Pulse Resp BP Pulse Ox 98.2 F 103 H 16 109/70 100 12/13/17 13:24 12/13/17 13:24 12/13/17 13:24 12/13/17 13:24 12/13/17 13:24 Oxygen Flow Rate (L/min) 2 Oxygen Delivery Method Nasal Cannula Weight: 158 lb 8.198 oz Body Mass Index (BMI) 24.0 Intake and Output for Last 24 Hours 12/11/17 12/12/17 12/13/17 23:59 23:59 23:59 Intake Total 2155 / 2155 Output Total 2240 / 2240 Balance -85 / -85 Laboratory Tests Past 24 Hrs 12/12/17 12/12/17 12/12/17 18:05 18:05 18:05 WBC 11.8 H RBC 5.05 Hgb 15.2 Hct 46.7 MCV 92.5 MCH 30.1 MCHC 32.5 RDW 13.8 RDW Differential 45.9 H Plt Count 140 L MPV 9.8 Immature Gran % (Auto) 0.200 Neut % (Auto) 78.7 H Lymph % (Auto) 11.6 L [place] % (Auto) 9.0 Eos % (Auto) 0.3 Baso % (Auto) 0.2 Absolute Neuts (auto) 9.3 H Absolute Lymphs (auto) 1.37 Total Counted Not Reportable PT INR Sodium 134 L Potassium 3.4 L Chloride 98 Carbon Dioxide 27.0 Anion Gap 9 BUN 15 Creatinine 0.83 Estim Creat Clear Calc 95.00 Est GFR (MDRD) Af Amer 123 Est GFR (MDRD) Non-Af 101 BUN/Creatinine Ratio 18.1 Glucose 124 H Calcium 8.6 TSH Free T4 Phenytoin 16.1 Valproic Acid Phenobarbital 52.4 H* Blood Type Antibody Screen 12/12/17 12/13/17 12/13/17 18:05 06:55 06:55 WBC 7.9 RBC 4.60 Hgb 13.9 Hct 42.2 MCV 91.7 MCH 30.2 MCHC 32.9 RDW 13.9 RDW Differential 45.8 H Plt Count 124 L MPV 10.1 Immature Gran % (Auto) 0.300 Neut % (Auto) 68.4 Lymph % (Auto) 18.3 L [place] % (Auto) 10.3 H Eos % (Auto) 2.4 Baso % (Auto) 0.3 Absolute Neuts (auto) 5.4 Absolute Lymphs (auto) 1.44 Total Counted Not Reportable PT 14.7 INR 1.2 Sodium Potassium Chloride Carbon Dioxide Anion Gap BUN Creatinine Estim Creat Clear Calc Est GFR (MDRD) Af Amer Est GFR (MDRD) Non-Af BUN/Creatinine Ratio Glucose Calcium TSH Free T4 Phenytoin Valproic Acid 65 Phenobarbital Blood Type Antibody Screen 12/13/17 12/13/17 12/13/17 06:55 06:55 06:55 WBC RBC Hgb Hct MCV MCH MCHC RDW RDW Differential Plt Count MPV Immature Gran % (Auto) Neut % (Auto) Lymph % (Auto) [place] % (Auto) Eos % (Auto) Baso % (Auto) Absolute Neuts (auto) Absolute Lymphs (auto) Total Counted PT INR Sodium 141 Potassium 3.6 Chloride 105 Carbon Dioxide 27.0 Anion Gap 9 BUN 12 Creatinine 0.89 Estim Creat Clear Calc 88.60 Est GFR (MDRD) Af Amer 113 Est GFR (MDRD) Non-Af 93 BUN/Creatinine Ratio 13.5 Glucose 112 H Calcium 8.2 L TSH 4.78 H Free T4 Phenytoin Valproic Acid Phenobarbital Blood Type A NEGATIVE Antibody Screen NEGATIVE 12/13/17 12/13/17 11:49 11:49 WBC 12.3 H RBC 4.80 Hgb 14.4 Hct 44.8 MCV 93.3 MCH 30.0 MCHC 32.1 RDW 14.1 RDW Differential 48.1 H Plt Count 126 L MPV 9.7 Immature Gran % (Auto) Neut % (Auto) Lymph % (Auto) [place] % (Auto) Eos % (Auto) Baso % (Auto) Absolute Neuts (auto) Absolute Lymphs (auto) Total Counted PT INR Sodium 141 Potassium 4.0 Chloride 107 Carbon Dioxide 24.0 Anion Gap 10 BUN 11 Creatinine 0.91 Estim Creat Clear Calc 86.65 Est GFR (MDRD) Af Amer 111 Est GFR (MDRD) Non-Af 92 BUN/Creatinine Ratio 12.1 Glucose 127 H Calcium 7.9 L TSH Free T4 1.19 Phenytoin Valproic Acid Phenobarbital Blood Type Antibody Screen Medical Necessity - Tobacco Use Smoking Status: Current every day smoker Tobacco Use: Chew Assessment/Plan All Active Problems (Last Reviewed 12/12/17 @ 21:51 by Jerad Tyler MD) Nondisplaced fracture of neck of left femur (Acute) Multiple falls (Acute) Compression fx, thoracic spine (Acute) 1. Nondisplaced left femoral neck fracture - repaired today per ortho. PTOT. Suspect pathologic, possibly underlying osteoporosis. Multiple thoracic compression fractures as well. Calcium normal on presentation. Check PTH and Vit D. Mild leukocytosis likely reactive 2/2 acute fracture. Could be osteomalacia 2/2 phenytoin. 2. 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 3. Hypothyroid - tsh elevated, t4 normal. 4. Seizure disorder - continue home meds. 5. BPH - flomax 6. HLD - statin 7. mild thrombocytopenia - trend DVT ppx: as directed per ortho DC planning: SNF vs Rehab unit. This patient was seen by Pepito Lopez PA-C under the supervision of Doctor Fahad. <Dexter Vásquez F - Last Filed: 12/13/17 19:56> - Physical Exam Vital Signs Temp Pulse Resp BP Pulse Ox 98.3 F 96 16 93/67 96 12/13/17 19:30 12/13/17 19:30 12/13/17 19:30 12/13/17 19:30 12/13/17 19:30 Oxygen Flow Rate (L/min) 1 Oxygen Delivery Method Nasal Cannula Weight: 158 lb 8.198 oz Body Mass Index (BMI) 24.0 Intake and Output for Last 24 Hours 12/11/17 12/12/17 12/13/17 23:59 23:59 23:59 Intake Total 2544 / 2544 Output Total 2640 / 2640 Balance -96 / -96 Laboratory Tests Past 24 Hrs 12/12/17 12/13/17 12/13/17 18:05 06:55 06:55 WBC 7.9 RBC 4.60 Hgb 13.9 Hct 42.2 MCV 91.7 MCH 30.2 MCHC 32.9 RDW 13.9 RDW Differential 45.8 H Plt Count 124 L MPV 10.1 Immature Gran % (Auto) 0.300 Neut % (Auto) 68.4 Lymph % (Auto) 18.3 L [place] % (Auto) 10.3 H Eos % (Auto) 2.4 Baso % (Auto) 0.3 Absolute Neuts (auto) 5.4 Absolute Lymphs (auto) 1.44 Total Counted Not Reportable PT 14.7 INR 1.2 Sodium Potassium Chloride Carbon Dioxide Anion Gap BUN Creatinine Estim Creat Clear Calc Est GFR (MDRD) Af Amer Est GFR (MDRD) Non-Af BUN/Creatinine Ratio Glucose Calcium Vit D 1,25-Dihydroxy TSH Free T4 PTH Intact Valproic Acid 65 Blood Type Antibody Screen 12/13/17 12/13/17 12/13/17 06:55 06:55 06:55 WBC RBC Hgb Hct MCV MCH MCHC RDW RDW Differential Plt Count MPV Immature Gran % (Auto) Neut % (Auto) Lymph % (Auto) [place] % (Auto) Eos % (Auto) Baso % (Auto) Absolute Neuts (auto) Absolute Lymphs (auto) Total Counted PT INR Sodium 141 Potassium 3.6 Chloride 105 Carbon Dioxide 27.0 Anion Gap 9 BUN 12 Creatinine 0.89 Estim Creat Clear Calc 88.60 Est GFR (MDRD) Af Amer 113 Est GFR (MDRD) Non-Af 93 BUN/Creatinine Ratio 13.5 Glucose 112 H Calcium 8.2 L Vit D 1,25-Dihydroxy TSH 4.78 H Free T4 PTH Intact Valproic Acid Blood Type A NEGATIVE Antibody Screen NEGATIVE 12/13/17 12/13/17 12/13/17 11:49 11:49 15:02 WBC 12.3 H RBC 4.80 Hgb 14.4 Hct 44.8 MCV 93.3 MCH 30.0 MCHC 32.1 RDW 14.1 RDW Differential 48.1 H Plt Count 126 L MPV 9.7 Immature Gran % (Auto) Neut % (Auto) Lymph % (Auto) [place] % (Auto) Eos % (Auto) Baso % (Auto) Absolute Neuts (auto) Absolute Lymphs (auto) Total Counted PT INR Sodium 141 Potassium 4.0 Chloride 107 Carbon Dioxide 24.0 Anion Gap 10 BUN 11 Creatinine 0.91 Estim Creat Clear Calc 86.65 Est GFR (MDRD) Af Amer 111 Est GFR (MDRD) Non-Af 92 BUN/Creatinine Ratio 12.1 Glucose 127 H Calcium 7.9 L Vit D 1,25-Dihydroxy TSH Free T4 1.19 PTH Intact 94.6 H Valproic Acid Blood Type Antibody Screen 12/13/17 15:02 WBC RBC Hgb Hct MCV MCH MCHC RDW RDW Differential Plt Count MPV Immature Gran % (Auto) Neut % (Auto) Lymph % (Auto) [place] % (Auto) Eos % (Auto) Baso % (Auto) Absolute Neuts (auto) Absolute Lymphs (auto) Total Counted PT INR Sodium Potassium Chloride Carbon Dioxide Anion Gap BUN Creatinine Estim Creat Clear Calc Est GFR (MDRD) Af Amer Est GFR (MDRD) Non-Af BUN/Creatinine Ratio Glucose Calcium Vit D 1,25-Dihydroxy Pending TSH Free T4 PTH Intact Valproic Acid Blood Type Antibody Screen Code Visit Addendum: Dr. Vásquez I personally examined the patient and reviewed the chart. I agree with the above.-year-old male with history of seizures, compression fractures of thoracic spine, multiple falls presenting with a nondisplaced left femoral neck fracture. Given the number of fractures that it appears that he has had it is likely that he is suffering from osteoporosis possibly osteomalacia. On review of his medications the only medication I can identify that could be likely would be phenytoin. PTH is slightly elevated but not significantly so and vitamin D is low and he is being replaced. It may be beneficial for patient to start on a bisphosphonate as an outpatient. Inpatient E&M: 14459 Subs Hosp L2
[2017-12-13] MEDS: Celecoxib 200 MG Capsule PO ×2 (15:28→21:46)
[2017-12-13] MEDS: Senna/Docusate Sodium 1 Tablet 2 TABLET PO ×2 (15:29→21:46)
[2017-12-13] MEDS: Phenytoin Na 100 MG Capsule 300 MG PO (15:29)
[2017-12-13] MEDS: Aspirin 325 MG Tablet PO ×2 (15:29→21:46)
[2017-12-13] MEDS: Acetaminophen 500 MG Tablet 1000 MG PO ×2 (15:30→21:46)
[2017-12-13] MEDS: Tamsulosin HCl 0.4 MG Capsule PO (15:30)
[2017-12-13] MEDS: 0.9% NaCl Peripheral Flush Adult/Peds IV (15:30)
[2017-12-13 16:00] LABS: PTHIN 94.6 pg/mL (18.4-80.1)
[2017-12-13] MEDS: Cefazolin 1 GM/50 ML BAG IV (17:58)
[2017-12-13] MEDS: Lactated Ringers 1,000 ML 100 ML IV (20:21)
[2017-12-13] MEDS: Atorvastatin Calcium 40 MG Tablet PO (21:46)
[2017-12-13] MEDS: Divalproex Sodium 250 MG Tablet 500 MG PO (21:46)
[2017-12-13] MEDS: Heparin Injection (Vial) 5,000 UNIT/ML VIAL 5000 UNIT SC (21:46)
[2017-12-13] MEDS: Mirtazapine 15 MG Tablet PO (21:46)
[2017-12-13] MEDS: oxyCODONE 5 MG Tablet PO (23:08)
[2017-12-14] VITALS (19 sets, daily range): BP systolic 68–111; BP diastolic 48–81; PULSE 89–107; RESP 14–18; TEMP 36.3–37.1; O2SAT 93–100
[2017-12-14] MEDS: Cefazolin 1 GM/50 ML BAG IV (02:43)
[2017-12-14] MEDS: 0.9% Normal Saline 1,000 ML 999 ML IV ×3 (04:03→07:58)
[2017-12-14 04:34] LABS: Absolute Lymphocyte Count 1.59 X10^3/ul (0.83-4.51); Absolute Neutrophil Count 4.8 X10^3/uL (2.0-7.7); Basophil# 0.03 X10^3/uL; Basophil% 0.4 % (0-1); Eosinophil# 0.19 X10^3/uL; Eosinophils% 2.4 % (0-5); Hematocrit 33.3 % (40-54); Hemoglobin 10.9 g/dl (13.0-16.5); Lymphocyte # 1.59 X10^3/ul (4.0); Lymphocyte % 20.1 % (19-41); Mean Corp Hgb Conc 32.7 g/gl (32-36); Mean Corpuscular Hgb 29.9 pg (27.0-32.0); Mean Corpuscular Volume 91.5 fL (80-94); Mean Platelet Vol. 10.3 fl (6.2-12.0); Monocyte# 1.31 X10^3/uL; Monocyte% 16.6 % (0-10); Neutrophil # 4.77 X10^3/uL (2.7-7.7); Neutrophil % 60.4 % (47-70); Platelet Count 98 K/mm3 (150-450); RBC Distribution Width SD 46.3 fl (35.1-43.9); Red Blood Count 3.64 M/mm3 (4.6-6.2); White Blood Count 7.9 K/mm3 (4.4-11.0)
[2017-12-14 04:37] LABS: ALB/GLOB Ratio 0.7 RATIO (0.9-2.4); AST(SGOT) 21 U/L (15-37); Alanine Aminotransfer ALT/SGPT 16 U/L (16-61); Albumin, Serum 2.2 g/dL (3.2-5.0); Alkaline Phosphatase 44 U/L (45-117); Anion Gap 8 (5-15); BUN 10 mg/dL (7-18); BUN/Creat Ratio 13.7 RATIO (10-20); Calcium,Total 7.4 mg/dL (8.5-10.1); Chloride 108 mmol/L (98-107); Creatinine, Serum 0.73 mg/dL (0.70-1.30); EST Glomerular Filtration Rate 117 mL/min (>60); Est Glom Filt Rate - Afr Amer 142 mL/min (>60); Estimated Creatinine Clearance 108.01 ml/min; Globulin 3.2 g/dL (2.2-4.2); Glucose 101 mg/dL (74-106); Potassium 3.6 mmol/L (3.5-5.1); Protein, Total 5.4 g/dL (6.4-8.2); Sodium Level 141 mmol/L (136-145)
[2017-12-14 04:39] LABS: Lactic Acid 0.9 mmol/L (0.4-2.0)
[2017-12-14 04:50] LABS: POSITIVE COUNT NO; POSITIVE DIFFERENTIAL NO; POSITIVE MORPHOLOGY NO
[2017-12-14] MEDS: Levothyroxine 50 MCG Tablet PO (05:03)
[2017-12-14] MEDS: Acetaminophen 500 MG Tablet 1000 MG PO ×3 (05:03→22:13)
--- NOTE | 2017-12-14 06:56 | EKG12_ITS ---
Test Reason : Blood Pressure : / mmHG Vent. Rate : 092 BPM Atrial Rate : 092 BPM P-R Int : 148 ms QRS Dur : 104 ms QT Int : 402 ms P-R-T Axes : 071 081 060 degrees QTc Int : 497 ms Normal sinus rhythm Prolonged QT Abnormal ECG When compared with ECG of 13-DEC-2017 05:09, MANUAL COMPARISON REQUIRED, DATA IS UNCONFIRMED Confirmed by BRETT LIEBERMAN ([id number]), story editor CARMINA BILLINGS ([id number]) on 12/21/2017 11:36:40 AM Referred By: Shane MENARD Confirmed By:BRETT LIEBERMAN
--- NOTE | 2017-12-14 07:06 | CT_ITS ---
STUDY: CT SCAN HIP LEFT REASON FOR EXAM: Male, 57 years old. The patient is status post left hip replacement. Hypotension. Assessing for possible bleeding. RADIATION DOSAGE (If Supplied By Facility): CTDIvol = ( 17.55 ) mGy, DLP = ( 771.66 ) mGycm. Individualized dose optimization techniques were used for this CT.? TECHNIQUE: Multiple axial tomographic images were obtained following intravenous contrast administration. Coronal and sagittal reconstruction was obtained as well. COMPARISON: Comparison is made with prior radiograph dated December 13, 2017. FINDINGS: The patient is status post left total hip replacement. There is good alignment. Expected postoperative soft tissue changes are seen with the subcutaneous edema and fullness of the overlying musculature. Tiny air bubbles are seen within the soft tissues. No significant postoperative hematoma or fluid collection is seen. CT/Extremity Lower WITH Contrast IMPRESSION: Status post left total hip replacement. There is good alignment. Expected postoperative soft tissue changes overlying the left hip replacement. Electronically Signed: Bernard Pettit MD at 8:32 EDT Tel [phone], Service support ,
--- NOTE | 2017-12-14 07:08 | PCM.PN.BLA ---
Progress Note Overnight patient blood pressure dropped to mid 70s checked manually bilaterally by nurse. Overnight patient received 2700 MLS of normal saline and he had 150 mL's of urine. Patient was seen and examined. Patient denies any lightheadedness. On my examination blood pressure in his left hand was 82/60; and the right arm was 84/60. Lungs are clear to auscultate Heart rhythm irregularly irregular Abdomen soft nontender bowel sounds present Left hip tender and swollen Assessment and plan Hypotension Patient received 2700 IV bolus Additional normal saline 1 L is ordered and then 150 mL's times 10 hours. Patient is initiated on midodrine Will get a CT of his left hip with contrast H&H every 6 hours x3 starting at 10 AM Because of irregularly irregular rhythm EKG and telemetry monitoring ordered. FOBT ordered If patient continued to deteriorate consider ICU transfer.
[2017-12-14] MEDS: 0.9% NaCl Peripheral Flush Adult/Peds IV ×2 (07:58→17:32)
--- NOTE | 2017-12-14 08:43 | PCA ---
Finishing Range Feeder Mary called this am saying that she was suppose to meet with a Science Job Titles this am. she informed me she cant make it today to meet with anyone. If have any Questions they may call her to talk to her. Thanks
[2017-12-14] MEDS: Tamsulosin HCl 0.4 MG Capsule PO (09:16)
[2017-12-14] MEDS: Aspirin 325 MG Tablet PO ×2 (09:16→22:12)
[2017-12-14] MEDS: Midodrine HCl 5 MG Tablet 10 MG PO ×2 (09:16→14:15)
[2017-12-14] MEDS: Senna/Docusate Sodium 1 Tablet 2 TABLET PO ×2 (09:16→22:12)
[2017-12-14] MEDS: Phenytoin Na 100 MG Capsule 300 MG PO (09:16)
[2017-12-14] MEDS: 0.9% Normal Saline 1,000 ML 150 ML IV ×2 (09:17→17:32)
[2017-12-14] MEDS: Heparin Injection (Vial) 5,000 UNIT/ML VIAL 5000 UNIT SC ×2 (09:18→22:12)
[2017-12-14 09:36] LABS: Hematocrit 35.5 % (40-54); Hemoglobin 11.5 g/dl (13.0-16.5)
--- NOTE | 2017-12-14 10:51 | CASEMGMT ---
Social Work Note PT updated this worker that pt would be a good candidate for RU at discharge. SW met with pt to discuss discharge planning. Pt states that he would prefer to go home. GIORGI explained that currently pt is Max assist of 2 for transfers and bed mobility currently and pt's caregiver Mary might not be able to provide the care that pt needs right now. Pt seems to have some forgetfulness as he didn't remember this worker from yesterday. Pt states that his engineering teacher Mary provided most of the care for him but per previous notes, Mary had informed this worker that pt was previously independent. Pt gave this worker permission to call his caregiver Mary. GIORGI placed a call to Mary and Mary is agreeable to pt going to RU at discharge. GIORGI informed Mary that that this worker left Advanced Directives documents in pt's room. Pt didn't want to complete documents at this time. GIORGI explained that if pt goes to RU or goes to SNF then staff can assist pt with completing documents at the facility. Mary states understanding. GIORGI placed a call to Cinthya with [facility] informing her of referral. Per previous notes, is able to accept pt. Plan: RU when medically cleared Christiane Lemus BLUEPRINT MAKER, ARMORED CABLE MACHINE OPERATOR
--- NOTE | 2017-12-14 10:58 | CASEMGMT ---
Social Work Note SW has discussed completing advanced directives with pt and pt's caregiver July. SW to continue to discuss with pt completing advanced directives to see if pt wants to complete documents. Per his caregiver July documents have not been completed yet. Christiane Lemus CONTROL PANEL TESTER, GAS LINE SERVICER
--- NOTE | 2017-12-14 12:42 | PCM.PN.ORT ---
Patient Problems: Active and Suspected Problems (Last Reviewed 12/12/17 @ 21:51 by Jerad Tyler MD) Nondisplaced fracture of neck of left femur (Acute) Multiple falls (Acute) Compression fx, thoracic spine (Acute) Subjective: The patient was sitting in bed upon examination. Patient denies any chest pain, shortness of breath, dizziness, lightheadedness, nausea or vomiting, or calf pain. Pain is controlled on medications. No adverse overnight events. Patient states he is not having much pain in the left hip. Patient has had some decreased blood pressure we are continuing to monitor. Objective: Vital signs stable and afebrile. Patient is able to plantarflex and dorsiflex actively. Sensation is intact to light touch to saphenous, sural, superficial and deep peroneal, and tibial distribution. Dressing is clean dry and intact. Negative Homans bilaterally, negative signs and symptoms of DVT. - Physical Exam Vital Signs Temp Pulse Resp BP Pulse Ox 98.0 F 98 18 99/70 100 12/14/17 09:00 12/14/17 09:00 12/14/17 09:00 12/14/17 09:00 12/14/17 09:00 Oxygen Flow Rate (L/min) 2 Oxygen Delivery Method Room Air Weight: 71.9 kg Body Mass Index (BMI) 24.0 Intake and Output for Last 24 Hours 12/12/17 12/13/17 12/14/17 23:59 23:59 23:59 Intake Total 3847 / 3847 2687 / 2687 Output Total 2915 / 2915 150 / 150 Balance 932 / 932 2537 / 2537 Laboratory Tests Past 24 Hrs 12/13/17 12/13/17 12/14/17 15:02 15:02 04:06 WBC RBC Hgb Hct MCV MCH MCHC RDW RDW Differential Plt Count MPV Immature Gran % (Auto) Neut % (Auto) Lymph % (Auto) [place] % (Auto) Eos % (Auto) Baso % (Auto) Absolute Neuts (auto) Absolute Lymphs (auto) Total Counted Sodium 141 Potassium 3.6 Chloride 108 H Carbon Dioxide 25.0 Anion Gap 8 BUN 10 Creatinine 0.73 Estim Creat Clear Calc 108.01 Est GFR (MDRD) Af Amer 142 Est GFR (MDRD) Non-Af 117 BUN/Creatinine Ratio 13.7 Glucose 101 Lactic Acid Calcium 7.4 L Total Bilirubin 0.20 AST 21 ALT 16 Alkaline Phosphatase 44 L Total Protein 5.4 L Albumin 2.2 L Globulin 3.2 Albumin/Globulin Ratio 0.7 L Vit D 1,25-Dihydroxy Pending PTH Intact 94.6 H 12/14/17 12/14/17 12/14/17 04:06 04:06 09:25 WBC 7.9 RBC 3.64 L Hgb 10.9 L 11.5 L Hct 33.3 L 35.5 L MCV 91.5 MCH 29.9 MCHC 32.7 RDW 14.0 RDW Differential 46.3 H Plt Count 98 L MPV 10.3 Immature Gran % (Auto) 0.100 Neut % (Auto) 60.4 Lymph % (Auto) 20.1 [place] % (Auto) 16.6 H Eos % (Auto) 2.4 Baso % (Auto) 0.4 Absolute Neuts (auto) 4.8 Absolute Lymphs (auto) 1.59 Total Counted Not Reportable Sodium Potassium Chloride Carbon Dioxide Anion Gap BUN Creatinine Estim Creat Clear Calc Est GFR (MDRD) Af Amer Est GFR (MDRD) Non-Af BUN/Creatinine Ratio Glucose Lactic Acid 0.9 Calcium Total Bilirubin AST ALT Alkaline Phosphatase Total Protein Albumin Globulin Albumin/Globulin Ratio Vit D 1,25-Dihydroxy PTH Intact Medical Necessity - Tobacco Use Smoking Status: Current every day smoker Tobacco Use: Chew Assessment/Plan All Active Problems (Last Reviewed 12/12/17 @ 21:51 by Jerad Tyler MD) Nondisplaced fracture of neck of left femur (Acute) Multiple falls (Acute) Compression fx, thoracic spine (Acute) 1. S/P left total hip arthroplasty POD #1 2. Continue Pain Medications: Tylenol and OxyIR 3. DVT Prophylaxis: Aspirin 325 mg twice daily times 4 weeks 4. PT/OT: Weightbearing as tolerated 5. H & H: 11.5/35.5, asymptomatic 6. Encouraged Incentive Spirometry 7. Continue postoperative medical management per medicine 8. Disposition: Plan will be for possible discharge to rehab unit when medically ready.
--- NOTE | 2017-12-14 14:28 | PCM.PROGNOTE ---
<Pepito Lopez - Last Filed: 12/14/17 14:28> Patient Problems: Active and Suspected Problems (Last Reviewed 12/12/17 @ 21:51 by Jerad Tyler MD) Nondisplaced fracture of neck of left femur (Acute) Multiple falls (Acute) Compression fx, thoracic spine (Acute) Subjective: Patient had an episode of hypotension overnight. He was started on IV fluids, midodrine, Mcrae catheter, every 6 H&H's and placed on telemetry. He has had no further issues. He has no dizziness or lightheadedness. His pain is well controlled. He has no numbness or tingling in the affected extremity. He has no nausea, vomiting, shortness of breath, cough. He was ambulate a couple steps around the room with PT OT using a walker. - Physical Exam General: Alert, Oriented x3, Cooperative HEENT: Atraumatic, PERRLA, EOMI, Normocephalic Neck: Supple, No JVD, Negative Carotid Bruits Lungs: Clear to auscultation, Normal air movement Cardiovascular: Regular rate, No murmurs Abdomen: Bowel Sounds Present, Soft, Non Tender Extremities: No edema, Capillary Refill Less than 3 Seconds Skin: No rashes, No breakdown Musculoskeletal: No Tenderness to Palpation of Joints or Extremities Neurological: Cranial nerves II-XII grossly intact Psych/Mental Status: Normal Affect, Appropriate Vital Signs Temp Pulse Resp BP Pulse Ox 98.0 F 99 18 111/81 H 93 12/14/17 11:30 12/14/17 11:59 12/14/17 11:30 12/14/17 11:30 12/14/17 11:30 Oxygen Flow Rate (L/min) 2 Oxygen Delivery Method Room Air Weight: 158 lb 8.198 oz Body Mass Index (BMI) 24.0 Intake and Output for Last 24 Hours 12/12/17 12/13/17 12/14/17 23:59 23:59 23:59 Intake Total 3847 / 3847 4344 / 4344 Output Total 2915 / 2915 650 / 650 Balance 932 / 932 3694 / 3694 Laboratory Tests Past 24 Hrs 12/13/17 12/13/17 12/14/17 15:02 15:02 04:06 WBC RBC Hgb Hct MCV MCH MCHC RDW RDW Differential Plt Count MPV Immature Gran % (Auto) Neut % (Auto) Lymph % (Auto) [place] % (Auto) Eos % (Auto) Baso % (Auto) Absolute Neuts (auto) Absolute Lymphs (auto) Total Counted Sodium 141 Potassium 3.6 Chloride 108 H Carbon Dioxide 25.0 Anion Gap 8 BUN 10 Creatinine 0.73 Estim Creat Clear Calc 108.01 Est GFR (MDRD) Af Amer 142 Est GFR (MDRD) Non-Af 117 BUN/Creatinine Ratio 13.7 Glucose 101 Lactic Acid Calcium 7.4 L Total Bilirubin 0.20 AST 21 ALT 16 Alkaline Phosphatase 44 L Total Protein 5.4 L Albumin 2.2 L Globulin 3.2 Albumin/Globulin Ratio 0.7 L Vit D 1,25-Dihydroxy Pending PTH Intact 94.6 H 12/14/17 12/14/17 12/14/17 04:06 04:06 09:25 WBC 7.9 RBC 3.64 L Hgb 10.9 L 11.5 L Hct 33.3 L 35.5 L MCV 91.5 MCH 29.9 MCHC 32.7 RDW 14.0 RDW Differential 46.3 H Plt Count 98 L MPV 10.3 Immature Gran % (Auto) 0.100 Neut % (Auto) 60.4 Lymph % (Auto) 20.1 [place] % (Auto) 16.6 H Eos % (Auto) 2.4 Baso % (Auto) 0.4 Absolute Neuts (auto) 4.8 Absolute Lymphs (auto) 1.59 Total Counted Not Reportable Sodium Potassium Chloride Carbon Dioxide Anion Gap BUN Creatinine Estim Creat Clear Calc Est GFR (MDRD) Af Amer Est GFR (MDRD) Non-Af BUN/Creatinine Ratio Glucose Lactic Acid 0.9 Calcium Total Bilirubin AST ALT Alkaline Phosphatase Total Protein Albumin Globulin Albumin/Globulin Ratio Vit D 1,25-Dihydroxy PTH Intact Medical Necessity - Tobacco Use Smoking Status: Current every day smoker Tobacco Use: Chew Assessment/Plan All Active Problems (Last Reviewed 12/12/17 @ 21:51 by Jerad Tyler MD) Nondisplaced fracture of neck of left femur (Acute) Multiple falls (Acute) Compression fx, thoracic spine (Acute) 1. Nondisplaced left femoral neck fracture - repaired today per ortho. PTOT. Suspect pathologic, possibly underlying osteoporosis. Multiple thoracic compression fractures as well. Calcium normal on presentation. PTH is elevated, corrected calcium is low normal. Could be osteomalacia 2/2 phenytoin, possibly normocalcemic hyperparathyroidism. Vit d pending. Continue weekly vit D. Would likely benefit from Bisphosphonate. CT of the hip without acute changes. 2. Hypotension -transient. Discontinue midodrine. Discontinue IV fluids. Resolved. DC Mcrae catheter tomorrow and do postvoid residual. IV morphine discontinued. 3. 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 4. Hypothyroid - tsh elevated, t4 normal. 5. Seizure disorder - continue home meds. 6. BPH - flomax 7. HLD - statin 8. mild thrombocytopenia - trend, if further decline consider arixtra. 9. Post op anemia - stable. DVT ppx: as directed per ortho - ASA BID. DC planning: SNF vs Rehab unit. This patient was seen by Pepito Lopez PA-C under the supervision of Doctor Fahad. <Dexter Vásquez F - Last Filed: 12/14/17 15:35> - Physical Exam Vital Signs Temp Pulse Resp BP Pulse Ox 98.0 F 99 18 111/81 H 93 12/14/17 11:30 12/14/17 11:59 12/14/17 11:30 12/14/17 11:30 12/14/17 11:30 Oxygen Flow Rate (L/min) 2 Oxygen Delivery Method Room Air Weight: 158 lb 8.198 oz Body Mass Index (BMI) 24.0 Intake and Output for Last 24 Hours 12/12/17 12/13/17 12/14/17 23:59 23:59 23:59 Intake Total 3847 / 3847 4344 / 4344 Output Total 2915 / 2915 650 / 650 Balance 932 / 932 3694 / 3694 Laboratory Tests Past 24 Hrs 12/13/17 12/14/17 12/14/17 15:02 04:06 04:06 WBC 7.9 RBC 3.64 L Hgb 10.9 L Hct 33.3 L MCV 91.5 MCH 29.9 MCHC 32.7 RDW 14.0 RDW Differential 46.3 H Plt Count 98 L MPV 10.3 Immature Gran % (Auto) 0.100 Neut % (Auto) 60.4 Lymph % (Auto) 20.1 [place] % (Auto) 16.6 H Eos % (Auto) 2.4 Baso % (Auto) 0.4 Absolute Neuts (auto) 4.8 Absolute Lymphs (auto) 1.59 Total Counted Not Reportable Sodium 141 Potassium 3.6 Chloride 108 H Carbon Dioxide 25.0 Anion Gap 8 BUN 10 Creatinine 0.73 Estim Creat Clear Calc 108.01 Est GFR (MDRD) Af Amer 142 Est GFR (MDRD) Non-Af 117 BUN/Creatinine Ratio 13.7 Glucose 101 Lactic Acid Calcium 7.4 L Total Bilirubin 0.20 AST 21 ALT 16 Alkaline Phosphatase 44 L Total Protein 5.4 L Albumin 2.2 L Globulin 3.2 Albumin/Globulin Ratio 0.7 L PTH Intact 94.6 H 12/14/17 12/14/17 04:06 09:25 WBC RBC Hgb 11.5 L Hct 35.5 L MCV MCH MCHC RDW RDW Differential Plt Count MPV Immature Gran % (Auto) Neut % (Auto) Lymph % (Auto) [place] % (Auto) Eos % (Auto) Baso % (Auto) Absolute Neuts (auto) Absolute Lymphs (auto) Total Counted Sodium Potassium Chloride Carbon Dioxide Anion Gap BUN Creatinine Estim Creat Clear Calc Est GFR (MDRD) Af Amer Est GFR (MDRD) Non-Af BUN/Creatinine Ratio Glucose Lactic Acid 0.9 Calcium Total Bilirubin AST ALT Alkaline Phosphatase Total Protein Albumin Globulin Albumin/Globulin Ratio PTH Intact Code Visit Addendum: Dr. Vásquez I personally examined the patient and reviewed the chart. I agree with the above.-year-old male with history of seizures, compression fractures of thoracic spine, multiple falls presenting with a nondisplaced left femoral neck fracture. Given the number of fractures that it appears that he has had it is likely that he is suffering from osteoporosis possibly osteomalacia. On review of his medications the only medication I can identify that could be likely would be phenytoin. PTH is slightly elevated but not significantly so and vitamin D is low and he is being replaced. It may be beneficial for patient to start on a bisphosphonate as an outpatient. His hypotension overnight has resolved and his H/H is stable. Will DC q6 H/H, DC midodrine, and can DC mcrae. Plan for DC to rehab tomorrow if stays medically stable. Inpatient E&M: 37413 Subs Hosp L2
--- NOTE | 2017-12-14 14:41 | CASEMGMT ---
Social Work Note GIORGI spoke with Cinthya with [facility] who confirms she is able to accept pt once medically cleared. GIORGI updated physician of this. Plan: [facility] when medically cleared Christiane Lemus EARLY CHILDHOOD EDUCATION WORKER, [employer]ORTS BROADCASTING [employer]
[2017-12-14] MEDS: Atorvastatin Calcium 40 MG Tablet PO (22:12)
[2017-12-14] MEDS: Mirtazapine 15 MG Tablet PO (22:12)
[2017-12-14] MEDS: Divalproex Sodium 250 MG Tablet 500 MG PO (22:12)
[2017-12-15] VITALS (7 sets, daily range): BP systolic 100–133; BP diastolic 73–80; PULSE 88–106; RESP 16; TEMP 36.6–36.9; O2SAT 92–93
[2017-12-15] MEDS: 0.9% Normal Saline 1,000 ML 150 ML IV ×2 (00:33→07:12)
[2017-12-15] MEDS: Acetaminophen 500 MG Tablet 1000 MG PO ×2 (05:43→15:14)
[2017-12-15] MEDS: Levothyroxine 50 MCG Tablet PO (05:43)
[2017-12-15 07:03] LABS: Absolute Lymphocyte Count 1.85 X10^3/ul (0.83-4.51); Absolute Neutrophil Count 5.1 X10^3/uL (2.0-7.7); Basophil# 0.03 X10^3/uL; Basophil% 0.3 % (0-1); Eosinophils% 3.5 % (0-5); Hematocrit 34.1 % (40-54); Hemoglobin 11.1 g/dl (13.0-16.5); Lymphocyte # 1.85 X10^3/ul (4.0); Lymphocyte % 21.3 % (19-41); Mean Corp Hgb Conc 32.6 g/gl (32-36); Mean Corpuscular Hgb 30.4 pg (27.0-32.0); Mean Corpuscular Volume 93.4 fL (80-94); Mean Platelet Vol. 10.8 fl (6.2-12.0); Monocyte# 1.43 X10^3/uL; Monocyte% 16.5 % (0-10); Neutrophil # 5.06 X10^3/uL (2.7-7.7); Neutrophil % 58.2 % (47-70); POSITIVE COUNT NO; POSITIVE DIFFERENTIAL NO; POSITIVE MORPHOLOGY NO; Platelet Count 123 K/mm3 (150-450); RBC Distribution Width CV 14.3 % (11.6-14.6); RBC Distribution Width SD 48.6 fl (35.1-43.9); Red Blood Count 3.65 M/mm3 (4.6-6.2); White Blood Count 8.7 K/mm3 (4.4-11.0)
[2017-12-15] MEDS: Tamsulosin HCl 0.4 MG Capsule PO (09:54)
[2017-12-15] MEDS: Heparin Injection (Vial) 5,000 UNIT/ML VIAL 5000 UNIT SC (09:55)
[2017-12-15] MEDS: Aspirin 325 MG Tablet PO (09:55)
[2017-12-15] MEDS: Senna/Docusate Sodium 1 Tablet 2 TABLET PO (09:55)
[2017-12-15] MEDS: Phenytoin Na 100 MG Capsule 300 MG PO (09:55)
--- NOTE | 2017-12-15 10:54 | PCM.PN.ORT ---
Patient Problems: Active and Suspected Problems (Last Reviewed 12/12/17 @ 21:51 by Jerad Tyler MD) Nondisplaced fracture of neck of left femur (Acute) Multiple falls (Acute) Compression fx, thoracic spine (Acute) Subjective: Patient getting back in bed. Ambulating well with use of a walker. Patient states he is having some pain in the left hip, primarily pain in his back at this time. Denies chest pain, shortness breath, calf pain, nausea vomiting. Objective: Dressings clean dry intact, negative signs and symptoms of DVT. Patient's left thigh is nontender and is soft, without swelling. Patient is good flexion-extension of the left knee ankle and foot. Patient has good active range of motion of the left hip. Patient vital signs labs within normal limits. - Physical Exam General: Alert, Oriented x3 Neurological: Cranial nerves II-XII grossly intact Psych/Mental Status: Normal Affect, Alert and oriented to time, place, person, mood and affect Vital Signs Temp Pulse Resp BP Pulse Ox 98.4 F 88 16 109/73 93 12/15/17 02:01 12/15/17 07:59 12/15/17 02:01 12/15/17 02:01 12/15/17 07:51 Oxygen Flow Rate (L/min) 2 Oxygen Delivery Method Room Air Weight: 71.9 kg Body Mass Index (BMI) 24.0 Intake and Output for Last 24 Hours 12/13/17 12/14/17 12/15/17 23:59 23:59 23:59 Intake Total 3847 / 3847 5300 / 5300 1840 / 1840 Output Total 2915 / 2915 1150 / 1150 700 / 700 Balance 932 / 932 4150 / 4150 1140 / 1140 Laboratory Tests Past 24 Hrs 12/15/17 06:20 WBC 8.7 RBC 3.65 L Hgb 11.1 L Hct 34.1 L MCV 93.4 MCH 30.4 MCHC 32.6 RDW 14.3 RDW Differential 48.6 H Plt Count 123 L MPV 10.8 Immature Gran % (Auto) 0.200 Neut % (Auto) 58.2 Lymph % (Auto) 21.3 [place] % (Auto) 16.5 H Eos % (Auto) 3.5 Baso % (Auto) 0.3 Absolute Neuts (auto) 5.1 Absolute Lymphs (auto) 1.85 Total Counted Not Reportable Medical Necessity - Tobacco Use Smoking Status: Current every day smoker Tobacco Use: Chew Assessment/Plan All Active Problems (Last Reviewed 12/12/17 @ 21:51 by Jerad Tyler MD) Nondisplaced fracture of neck of left femur (Acute) Multiple falls (Acute) Compression fx, thoracic spine (Acute) Status post left total hip arthroplasty Plan 1. Continue all pain medications as prescribed 2. Continue physical therapy with weightbearing as tolerated with walker 3. Continue aspirin 325 mg 1 p.o. every 12 hours for postop DVT prophylaxis X 30 days. Continue heparin as directed by medicine 4. Encourage incentive spirometry 5. Change dressing prior to discharge to rehab. Replace dressing with AG dressing, which will remain in place until staple removal 6. Staple removal 12/25/2017 7. Shower 12/18/2017 8. Follow-up with Dr. Walden in 2 weeks 9. Patient is orthopedically stable. Discharge to with [facility] for for rehab when cleared by medicine
--- NOTE | 2017-12-15 11:02 | PN.ORTHO_ITS ---
Patient Problems: Active and Suspected Problems (Last Reviewed 12/12/17 @ 21:51 by Jerad Tyler MD) Nondisplaced fracture of neck of left femur (Acute) Multiple falls (Acute) Compression fx, thoracic spine (Acute) Subjective: Patient getting back in bed. Ambulating well with use of a walker. Patient states he is having some pain in the left hip, primarily pain in his back at this time. Denies chest pain, shortness breath, calf pain, nausea vomiting. Objective: Dressings clean dry intact, negative signs and symptoms of DVT. Patient's left thigh is nontender and is soft, without swelling. Patient is good flexion- extension of the left knee ankle and foot. Patient has good active range of motion of the left hip. Patient vital signs labs within normal limits. - Physical Exam General: Alert, Oriented x3 Neurological: Cranial nerves II-XII grossly intact Psych/Mental Status: Normal Affect, Alert and oriented to time, place, person, mood and affect Vital Signs Temp Pulse Resp BP Pulse Ox 98.4 F 88 16 109/73 93 12/15/17 02:01 12/15/17 07:59 12/15/17 02:01 12/15/17 02:01 12/15/17 07:51 Oxygen Flow Rate (L/min) 2 Oxygen Delivery Method Room Air Weight: 71.9 kg Body Mass Index (BMI) 24.0 Intake and Output for Last 24 Hours 12/13/17 12/14/17 12/15/17 23:59 23:59 23:59 Intake Total 3847 / 3847 5300 / 5300 1840 / 1840 Output Total 2915 / 2915 1150 / 1150 700 / 700 Balance 932 / 932 4150 / 4150 1140 / 1140 Laboratory Tests Past 24 Hrs 12/15/17 06:20 WBC 8.7 RBC 3.65 L Hgb 11.1 L Hct 34.1 L MCV 93.4 MCH 30.4 MCHC 32.6 RDW 14.3 RDW Differential 48.6 H Plt Count 123 L MPV 10.8 Immature Gran % (Auto) 0.200 Neut % (Auto) 58.2 Lymph % (Auto) 21.3 [place] % (Auto) 16.5 H Eos % (Auto) 3.5 Baso % (Auto) 0.3 Absolute Neuts (auto) 5.1 Absolute Lymphs (auto) 1.85 Total Counted Not Reportable Medical Necessity - Tobacco Use Smoking Status: Current every day smoker Tobacco Use: Chew Assessment/Plan All Active Problems (Last Reviewed 12/12/17 @ 21:51 by Jerad Tyler MD) Nondisplaced fracture of neck of left femur (Acute) Multiple falls (Acute) Compression fx, thoracic spine (Acute) Status post left total hip arthroplasty Plan 1. Continue all pain medications as prescribed 2. Continue physical therapy with weightbearing as tolerated with walker 3. Continue aspirin 325 mg 1 p.o. every 12 hours for postop DVT prophylaxis X 30 days. Continue heparin as directed by medicine 4. Encourage incentive spirometry 5. Change dressing prior to discharge to rehab. Replace dressing with AG dressing, which will remain in place until staple removal 6. Staple removal 12/25/2017 7. Shower 12/18/2017 8. Follow-up with Dr. Walden in 2 weeks 9. Patient is orthopedically stable. Discharge to with [facility] for for rehab when cleared by medicine
--- NOTE | 2017-12-15 11:55 | CASEMGMT ---
Social Work Note Per physician pt is being discharged to [facility] today. SW met with pt to inform him of this. Pt states understanding. SW asked pt if he wanted to complete Advanced Directives at this time and pt denied. SW explained that they can be completed on [facility] once pt gets there if he chooses to complete them. Pt states understanding. Pt gave this worker permission to call his caregiver July to inform her of pt's discharge. SW placed a call to pt's caregiver July and informed her that pt will be discharged to [facility] today. Mary states understanding. Mary states that she was at [facility] earlier today and tried to meet with this worker but her ride was inpatient and wanted to leave soon. GIORGI stated understanding and informed July that this worker knew she was here but that this worker was busy this morning and unable to meet with her. GIORGI explained though that advanced directives have to be completed by pt and that he has to be able to inform whoever his wishes and who he wants to name his agent. Mary states understanding and states though that pt wants her to be with him when he completes documents. GIORGI stated understanding and again informed July that SW on [facility] can follow up in completed advanced directives. GIORGI spoke with Cinthya with [facility] and updated her that pt will be discharged to [facility] today. Cinthya confirms pt is able to discharge to [facility] today. Plan: Discharge to today Christiane Lemus GEODETIC SURVEY DIRECTOR, TRANSITIONAL CARE LIAISON
--- NOTE | 2017-12-15 12:04 | DCINST_ITS ---
- Discharge Diagnoses Current Active Problems: Current Active and Chronic Problems (Last Reviewed 12/12/17 @ 21:51 by Jerad Tyler MD) Nondisplaced fracture of neck of left femur (Acute) Multiple falls (Acute) Compression fx, thoracic spine (Acute) You will use the following diet at home:: No restrictions Your food should be the consistency of: Regular Your liquids should be the consistency of: Regular/Thin Discharge Activity: Return to Normal Activity Additional Activity Instructions:: Activity as directed by Orthopedics Allergies/Adverse Reactions: Allergies No Known Allergies Allergy (Verified 12/12/17 17:43) Medications to take at Discharge atorvastatin 40 mg tablet 40 mg PO QHS 12/03/17 divalproex 250 mg tablet,delayed release 500 mg PO QHS 12/03/17 levothyroxine 50 mcg capsule 50 mcg PO DAILY 12/03/17 mirtazapine 30 mg tablet 15 mg PO DAILY 12/03/17 phenytoin sodium extended 100 mg capsule 300 mg PO DAILY 12/03/17 tamsulosin 0.4 mg capsule 0.4 mg PO DAILY 12/03/17 Ergocalciferol [Vitamin D] 50,000 unit PO Q7D 12/12/17 Acetaminophen [Tylenol] 1,000 mg PO Q8 tablet 12/15/17 Aspirin 325 mg PO BID tablet 12/15/17 Ensure Enlive 120 ml PO 4X/DAY liquid 12/15/17 Magnesium Hydroxide [Milk Of Magnesia] 30 ml PO DAILY PRN PRN udc 12/15/17 Nicotine [Nicoderm Cq] 21 mg TRANSDERM. DAILY patch 12/15/17 Oxycodone [Oxyir] 5 mg PO Q6H PRN PRN 2 Days #8 tablet 12/15/17 Primary Care Physician: Jose Alvarez Chi, MD [Primary Care Provider] - Please follow up with your Primary Care Physician in: 2 weeks Test Results: Test results from this visit will be discussed in further detail at your follow- up appointment, if applicable. Please Follow Up With: Stevo Walden DO When: 1 week Proposed Discharge Date: 12/15/17
--- NOTE | 2017-12-15 13:58 | DS.PCM_ITS ---
<Pepito Lopez - Last Filed: 12/15/17 13:50> Discharge Date and Diagnosis - Problem List Patient Problems: Active and Suspected Problems (Last Reviewed 12/12/17 @ 21:51 by Jerad Tyler MD) Nondisplaced fracture of neck of left femur (Acute) Multiple falls (Acute) Compression fx, thoracic spine (Acute) Date of Admission: 12/12/17 Date of Discharge: 12/15/17 - Primary Discharge Diagnosis Active and Suspected Problems (Last Reviewed 12/12/17 @ 21:51 by Jerad Tyler MD) Nondisplaced fracture of neck of left femur (Acute), pathologic, suspect osteomalacia Multiple falls (Acute) Compression fxs, age unknownthoracic spine (Acute) Parkinson disease with debility hx Seizure HLD BPH Mild thrombocytopenia Post op anemia Hypothyroidism Hospital Course and Treatment Imaging Results: CT/Abdomen/Pelvis without Cont IMPRESSION: There is no definite acute abnormality. No acute fractures are seen. There is cholelithiasis. CT/Chest without Contrast IMPRESSION: COPD with areas of fibrosis greater than expected for age. Demineralization and degenerative changes throughout the skeletal structures. Numerous compression fractures of the thoracic spine of indeterminate age. These findings are all also advanced for age. XR femur left IMPRESSION: Impacted nondisplaced fracture of the left femoral neck with no dislocation of the hip. RAD/Hip Min 2 Views (Portable) IMPRESSION: Status post left total hip arthroplasty. CT/Extremity Lower WITH Contrast IMPRESSION: Status post left total hip replacement. There is good alignment. Expected postoperative soft tissue changes overlying the left hip replacement. Consults: Ortho - [place] Operations: total hip replacement Procedures: None Summary of Care Provided: Hospital course: The patient is a 57 year old M with a hx of seizures, parkinsons, htn, hld, hypothyroid, BPH, who presented to the ER with c/o left hip pain after a mechanical fall from standing at home. He had an xray of his hip which revealed left impacted nondisplaced fracture with noted left dislocation. He had also complained of chest pain and had a CT of the chest and abdomen/pelvis which demonstrated multiple compression fractures of unknown age. Suspect that he had pathologic fracture of the hip. He was admitted to the medical surgical floor and orthopedics was consulted. Patient was taken to surgery and tolerated the procedure well. Postop he did have an episode of hypotension which was successfully treated with IV fluids. His pain was well controlled and he worked well with PT and OT. It is recommended that he be placed in the rehab unit prior to going home. PTH is mildly elevated, calcium has been normal, vitamin D is pending. He is already on vitamin D replacement. It is possible that he has osteomalacia secondary to phenytoin use. He may benefit from being started on a bisphosphonate as an outpatient. Patient is on 325 aspirin twice daily for DVT prophylaxis per orthopedics. He will need follow-up with orthopedics as an outpatient as directed. Patient was discharged to rehab unit in stable condition. This patient was seen by Pepito Lopez PA-C under the supervision of Doctor Fahad. [] Patient Problems: Active and Suspected Problems (Last Reviewed 12/12/17 @ 21:51 by Jerad Tyler MD) Nondisplaced fracture of neck of left femur (Acute) Multiple falls (Acute) Compression fx, thoracic spine (Acute) - Physical Exam General: Alert, Oriented x3, Cooperative HEENT: Atraumatic, PERRLA, EOMI, Normocephalic Neck: Supple, No JVD, Negative Carotid Bruits Lungs: Clear to auscultation, Normal air movement Cardiovascular: Regular rate, No murmurs Abdomen: Bowel Sounds Present, Soft, Non Tender Extremities: No edema, Capillary Refill Less than 3 Seconds Skin: No rashes, No breakdown Musculoskeletal: No Tenderness to Palpation of Joints or Extremities Neurological: Cranial nerves II-XII grossly intact Psych/Mental Status: Normal Affect, Appropriate, Alert and oriented to time, place, person, mood and affect Vital Signs Temp Pulse Resp BP Pulse Ox 98.2 F 91 16 133/80 H 92 12/15/17 09:20 12/15/17 09:20 12/15/17 09:20 12/15/17 09:20 12/15/17 09:20 Oxygen Flow Rate (L/min) 2 Oxygen Delivery Method Room Air Weight: 158 lb 8.198 oz Body Mass Index (BMI) 24.0 Intake and Output for Last 24 Hours 12/13/17 12/14/17 12/15/17 23:59 23:59 23:59 Intake Total 3847 / 3847 5300 / 5300 2826 / 2826 Output Total 2915 / 2915 1150 / 1150 850 / 850 Balance 932 / 932 4150 / 4150 1975 / 1975 Laboratory Tests Past 24 Hrs 12/15/17 06:20 WBC 8.7 RBC 3.65 L Hgb 11.1 L Hct 34.1 L MCV 93.4 MCH 30.4 MCHC 32.6 RDW 14.3 RDW Differential 48.6 H Plt Count 123 L MPV 10.8 Immature Gran % (Auto) 0.200 Neut % (Auto) 58.2 Lymph % (Auto) 21.3 [place] % (Auto) 16.5 H Eos % (Auto) 3.5 Baso % (Auto) 0.3 Absolute Neuts (auto) 5.1 Absolute Lymphs (auto) 1.85 Total Counted Not Reportable Discharge Diet: Low fat/ Low Cholesterol, 2000 mg Sodium Diet Discharge Activity: Return to Normal Activity Additional Activity Instructions:: Activity as directed by Orthopedics Home Medications: Medications to take at Discharge atorvastatin 40 mg tablet 40 mg PO QHS 12/03/17 divalproex 250 mg tablet,delayed release 500 mg PO QHS 12/03/17 levothyroxine 50 mcg capsule 50 mcg PO DAILY 12/03/17 mirtazapine 30 mg tablet 15 mg PO DAILY 12/03/17 phenytoin sodium extended 100 mg capsule 300 mg PO DAILY 12/03/17 tamsulosin 0.4 mg capsule 0.4 mg PO DAILY 12/03/17 Ergocalciferol [Vitamin D] 50,000 unit PO Q7D 12/12/17 Acetaminophen [Tylenol] 1,000 mg PO Q8 tablet 12/15/17 Aspirin 325 mg PO BID tablet 12/15/17 Ensure Enlive 120 ml PO 4X/DAY liquid 12/15/17 Magnesium Hydroxide [Milk Of Magnesia] 30 ml PO DAILY PRN PRN udc 12/15/17 Nicotine [Nicoderm Cq] 21 mg TRANSDERM. DAILY patch 12/15/17 Oxycodone [Oxyir] 5 mg PO Q6H PRN PRN 2 Days #8 tablet 12/15/17 Primary Care Physician: Jose Alvarez Chi, MD [Primary Care Provider] - Please follow up with your Primary Care Physician in: 2 weeks Please Follow Up With: Stevo Walden DO When: 1 week Disposition: Inpt Rehab Unit/Facility Minutes spent on discharge:: 35 Patient Condition:: Stable Medical Necessity - Tobacco Use Smoking Status: Current every day smoker Tobacco Use: Chew Meaningful Use Info Meaningful Use Diagnoses (Choose all that apply): None applicable <FahadDexter Praveen - Last Filed: 12/15/17 15:05> Discharge Date and Diagnosis - Primary Discharge Diagnosis Active and Suspected Problems (Last Reviewed 12/12/17 @ 21:51 by Jerad Tyler MD) Nondisplaced fracture of neck of left femur (Acute) Multiple falls (Acute) Compression fx, thoracic spine (Acute) Hospital Course and Treatment Summary of Care Provided: The patient is a 57 year old M [] - Physical Exam Vital Signs Temp Pulse Resp BP Pulse Ox 98.2 F 91 16 133/80 H 92 12/15/17 09:20 12/15/17 09:20 12/15/17 09:20 12/15/17 09:20 12/15/17 09:20 Oxygen Flow Rate (L/min) 2 Oxygen Delivery Method Room Air Weight: 158 lb 8.198 oz Body Mass Index (BMI) 24.0 Intake and Output for Last 24 Hours 12/13/17 12/14/17 12/15/17 23:59 23:59 23:59 Intake Total 3847 / 3847 5300 / 5300 2826 / 2826 Output Total 2915 / 2915 1150 / 1150 850 / 850 Balance 932 / 932 4150 / 4150 1975 / 1975 Laboratory Tests Past 24 Hrs 12/15/17 06:20 WBC 8.7 RBC 3.65 L Hgb 11.1 L Hct 34.1 L MCV 93.4 MCH 30.4 MCHC 32.6 RDW 14.3 RDW Differential 48.6 H Plt Count 123 L MPV 10.8 Immature Gran % (Auto) 0.200 Neut % (Auto) 58.2 Lymph % (Auto) 21.3 [place] % (Auto) 16.5 H Eos % (Auto) 3.5 Baso % (Auto) 0.3 Absolute Neuts (auto) 5.1 Absolute Lymphs (auto) 1.85 Total Counted Not Reportable Code Visit Addendum: Dr. Vásquez I personally examined the patient and reviewed the chart. I agree with the abo ve. 57-year-old male with a past medical history significant for seizure disorder, Parkinson's disease who presented after a fall on the same day of his admission. Went to the operating room and had a left total hip arthroplasty. He is doing well postoperatively. He was ambulating in the hallway this afternoon. He did have an episode of hypotension that was resolved with IV fluids and his H&H has remained stable at 11.1. Plan for discharge to rehab today. He is to continue with aspirin 325 mg twice daily for postop DVT prophylaxis per orthopedic surgery. He is weightbearing as tolerated. Of note given his multiple compression fractures and others nondisplaced fracture of the neck of the left femur, he may benefit from an outpatient bisphosphonate therapy; also osteomalacia is a side effect of phenytoin, so may be beneficial to titrate his medications during his rehab stay for his seizure disorder. Inpatient E&M: [id number] [facility]
--- NOTE | 2017-12-15 16:20 | NURSING ---
called report to [facility] in rehab. pt will be transported to room 405
[2017-12-17 16:27] LABS: Vitamin D 1,25-Dihydroxy 18.3 pg/mL (19.9-79.3)
== END 2017-12-15 16:34 | DRG 470 ==
LOC: ED 19:53 → MS3 21:13
PROVIDERS: Anesthesiology; Orthopaedic Surgery; Physician Assistant; Admitting Provider Hospitalist; Emergency Provider Emergency Medicine; Family Provider Family Medicine Geriatric Medicine; PCP Family Medicine Geriatric Medicine; Visit Provider Family Medicine
PROC: 0SRB0JZ Replacement of Left Hip Joint with Synthetic Substitute, Open Approach (ICD-10-PCS; CPT 27130; principal; 2017-12-13 07:05)
DX: S72.012A Unspecified intracapsular fracture of left femur, initial encounter for closed fracture (principal); M48.54XA Collapsed vertebra, not elsewhere classified, thoracic region, initial encounter for fracture; W19.XXXA Unspecified fall, initial encounter; Y92.009 Unspecified place in unspecified non-institutional (private) residence as the place of occurrence of the external cause; G40.909 Epilepsy, unspecified, not intractable, without status epilepticus; E03.9 Hypothyroidism, unspecified; F32.9 Major depressive disorder, single episode, unspecified; G20 Parkinson's disease; Z72.0 Tobacco use; E78.5 Hyperlipidemia, unspecified; N40.0 Benign prostatic hyperplasia without lower urinary tract symptoms; D69.6 Thrombocytopenia, unspecified; D64.9 Anemia, unspecified
CPT/HCPCS: 36415; 71250; 72072; 72100; 73502; 73552; 73701; 74176; 80048; 80053; 80164; 80184; 80185; 82652; 83605; 83970; 84439; 84443; 85014; 85018; 85025; 85027; 85610; 86850; 86900; 87040; 88305; 88311; 93005; 97162; 97165; 97530; 97802; 99285; 99406; C1776; J7030; J7120; Q9967; A4216; J2405

== ENCOUNTER 2017-12-15 16:52 | Inpatient (IN) | payer MEDICARE, MEDICAID, SELFPAY ==
[2017-12-15 17:06] VITALS: BP 127/88; PULSE 102; RESP 18; TEMP 36.7; O2SAT 95; BMI 23.6
[2017-12-15 19:16] VITALS: O2SAT 96
[2017-12-15] MEDS: oxyCODONE 5 MG Tablet PO (20:24)
[2017-12-15] MEDS: Divalproex Sodium 250 MG Tablet 500 MG PO (20:24)
[2017-12-15] MEDS: Mirtazapine 15 MG Tablet PO (20:28)
[2017-12-15] MEDS: Atorvastatin Calcium 40 MG Tablet PO (20:28)
[2017-12-15] MEDS: Senna/Docusate Sodium 1 Tablet 2 TABLET PO (20:29)
[2017-12-15 22:00] VITALS: BP 128/86; PULSE 92; RESP 18; TEMP 36.7; O2SAT 95
[2017-12-15] MEDS: Acetaminophen 500 MG Tablet 1000 MG PO (22:35)
[2017-12-16] MEDS: oxyCODONE 5 MG Tablet PO ×3 (03:25→21:05)
--- NOTE | 2017-12-16 03:36 | NURSING ---
pt has yet to void since catheter has been pulled, pt denied the need to go and feeling of fullness or pressure. no distention noted at this time, pt bladder scanned and value was 297ml. rn aware
[2017-12-16 05:29] LABS: Hematocrit 34.4 % (40-54); Hemoglobin 11.1 g/dl (13.0-16.5); Mean Corp Hgb Conc 32.3 g/gl (32-36); Mean Platelet Vol. 10.7 fl (6.2-12.0); Platelet Count 152 K/mm3 (150-450); RBC Distribution Width CV 14.6 % (11.6-14.6); RBC Distribution Width SD 47.9 fl (35.1-43.9); White Blood Count 7.7 K/mm3 (4.4-11.0)
[2017-12-16 05:31] LABS: Scan Indicated on CBC? Y/N NO
[2017-12-16 05:38] LABS: Anion Gap 7 (5-15); BUN 11 mg/dL (7-18); BUN/Creat Ratio 16.9 RATIO (10-20); Chloride 111 mmol/L (98-107); Creatinine, Serum 0.65 mg/dL (0.70-1.30); EST Glomerular Filtration Rate 134 mL/min (>60); Est Glom Filt Rate - Afr Amer 162 mL/min (>60); Estimated Creatinine Clearance 121.31 ml/min; Glucose 84 mg/dL (74-106); Potassium 3.7 mmol/L (3.5-5.1); Sodium Level 143 mmol/L (136-145)
[2017-12-16 06:20] VITALS: O2SAT 96
[2017-12-16] MEDS: Acetaminophen 500 MG Tablet 1000 MG PO ×3 (06:29→19:49)
[2017-12-16] MEDS: Enoxaparin 40 MG/0.4 ML Syringe SC (06:30)
[2017-12-16] MEDS: Levothyroxine 50 MCG Tablet PO (06:30)
[2017-12-16 07:52] VITALS: BP 116/77; PULSE 102; RESP 20; TEMP 36.7; O2SAT 95
[2017-12-16] MEDS: Tamsulosin HCl 0.4 MG Capsule PO (08:23)
[2017-12-16] MEDS: Phenytoin Na 100 MG Capsule 300 MG PO (08:24)
[2017-12-16] MEDS: Aspirin 325 MG Tablet PO ×2 (08:24→17:41)
--- NOTE | 2017-12-16 08:41 | PCM.HP.COS ---
History of Present Illness Date of Admission: 12/15/17 Chief Complaint: Left Total Hip Replacement The patient is a 57 year old right handed male, who is admitted to the Rehab unit for Rehabilitation after a mechanical fall from standing. He has a PMH: HTN, HLD, Hypothyroidism, BPH, seizures on Keppra, Parkinson which he is not on medication for. He underwent a Total Left Hip Replacement for a left impacted nondisplaced fracture with Dr. Walden, he tolerated the procedure well. He is on Aspirin 325mg BID per Orthopedics for DVT PPX. He lives with a giving officer in a single story home with 1 steps to get into the home, he uses a walker to ambulate, he was previously completely functionally independent and is admitted to the rehab unit in order to restore his previous level of functional independence. Past Medical History Medical History: Medical History (Last Reviewed 12/12/17 @ 21:51 by Jerad Tyler MD) BPH (benign prostatic hyperplasia) N40.0 Parkinson disease G20 Seizure disorder G40.909 Allergies No Known Allergies Allergy (Verified 12/12/17 17:43) Home Medications: Ambulatory Orders Medication Instructions Recorded atorvastatin 40 mg tablet 40 mg PO QHS 12/03/17 divalproex 250 mg tablet,delayed 500 mg PO QHS 12/03/17 release levothyroxine 50 mcg capsule 50 mcg PO DAILY 12/03/17 mirtazapine 30 mg tablet 15 mg PO DAILY 12/03/17 phenytoin sodium extended 100 mg 300 mg PO DAILY 12/03/17 capsule tamsulosin 0.4 mg capsule 0.4 mg PO DAILY 12/03/17 Ergocalciferol [Vitamin D] 50,000 unit PO Q7D 12/12/17 Acetaminophen [Tylenol] 1,000 mg PO Q8 12/15/17 Aspirin 325 mg PO BID 12/15/17 Ensure Enlive 120 ml PO 4X/DAY 12/15/17 Magnesium Hydroxide [Milk Of 30 ml PO DAILY PRN PRN udc 12/15/17 Magnesia] Nicotine [Nicoderm Cq] 21 mg TRANSDERM. 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, - Tobacco Use: Non-smoker, Chew - Tobacco, - - dips snuff Alcohol: Rare Drugs: None Review of Systems Constitutional: Denies: Chills, Fever, Weight Change HEENT: Denies: Head Aches, Sinus Congestion, Sinus Drainage Cardiovascular: Denies: Chest Pain, Palpitations Respiratory: Denies: Cough, Shortness of breath at rest, Sputum production Gastrointestinal: Denies: Abdominal Pain, Nausea, Vomiting Genitourinary: Denies: Dysuria Musculoskeletal: Denies: Joint Pain, Joint Tenderness Skin: Denies: Rash, Wounds Neurological: Denies: Numbness, Tingling, Focal weakness Psychiatric: Denies: Anxiety, Depression, Homicidal Ideations, Suicidal Ideations Hematologic/ Lymphatic: Denies: Easy Bruising, Easy Bleeding VTE Information - Inpt Only VTE Present on Admission: No VTE Mechan Device Prophylaxis: SCD's, Knee High AGUSTÍN Hose VTE Pharm Prophylaxis ordered?: Yes - Physical Exam General: Alert, Oriented x3, Cooperative HEENT: Atraumatic, PERRLA, EOMI, Normocephalic Neck: Supple, No JVD, Negative Carotid Bruits Lungs: Clear to auscultation, Normal air movement Cardiovascular: Regular rate, No murmurs Abdomen: Bowel Sounds Present, Soft, Non Tender Extremities: No edema, Capillary Refill Less than 3 Seconds Skin: No rashes, No breakdown Musculoskeletal: No Tenderness to Palpation of Joints or Extremities Neurological: Cranial nerves II-XII grossly intact Psych/Mental Status: Normal Affect, Appropriate, Alert and oriented to time, place, person, mood and affect Vital Signs Temp Pulse Resp BP Pulse Ox 98.0 F 92 18 128/86 H 96 12/15/17 22:00 12/15/17 22:00 12/15/17 22:00 12/15/17 22:00 12/16/17 06:20 Oxygen Delivery Method Room Air Weight: 70.76 kg Body Mass Index (BMI) 23.6 Laboratory Tests Past 24 Hrs 12/16/17 12/16/17 05:00 05:00 WBC 7.7 RBC 3.70 L Hgb 11.1 L Hct 34.4 L MCV 93.0 MCH 30.0 MCHC 32.3 RDW 14.6 RDW Differential 47.9 H Plt Count 152 MPV 10.7 Sodium 143 Potassium 3.7 Chloride 111 H Carbon Dioxide 25.0 Anion Gap 7 BUN 11 Creatinine 0.65 L Estim Creat Clear Calc 121.31 Est GFR (MDRD) Af Amer 162 Est GFR (MDRD) Non-Af 134 BUN/Creatinine Ratio 16.9 Glucose 84 Calcium 8.0 L Active Medications Acetaminophen (Tylenol) 1,000 mg PO Q8 [facility] Last Admin: 12/16/17 06:29 Dose: 1,000 mg Aspirin (Aspirin) 325 mg PO BIDCM [facility] Last Admin: 12/16/17 08:24 Dose: 325 mg Atorvastatin Calcium (Lipitor) 40 mg PO QHS [facility] Last Admin: 12/15/17 20:28 Dose: 40 mg Bisacodyl (Dulcolax) 10 mg RECTAL .PRN X 1 PRN PRN Reason: Constipation Divalproex Sodium (Depakote) 500 mg PO QHS [facility] Last Admin: 12/15/17 20:24 Dose: 500 mg Enoxaparin Sodium (Lovenox) 40 mg SC DAILY@0600 [facility] Last Admin: 12/16/17 06:30 Dose: 40 mg Ergocalciferol (Vitamin D) 50,000 unit PO Q7D [facility] Last Admin: 12/16/17 08:23 Dose: 50,000 unit Levothyroxine Sodium (Synthroid) 50 mcg PO DAILY@0600 [facility] Last Admin: 12/16/17 06:30 Dose: 50 mcg Magnesium Hydroxide (Milk Of Magnesia) 30 ml PO .PRN X 1 PRN PRN Reason: Constipation Mirtazapine (Remeron) 15 mg PO QHS [facility] Last Admin: 12/15/17 20:28 Dose: 15 mg Nicotine (Nicoderm Cq (Pbkc)) 21 mg TRANSDERM. DAILY [facility] Last Admin: 12/16/17 08:23 Dose: 21 mg Nutritional Formula (Lactose Free) (Ensure Enlive) 120 ml PO 4X/DAY [facility] Last Admin: 12/16/17 08:23 Dose: Not Given Oxycodone HCl (Oxyir) 5 mg PO Q6H PRN PRN PRN Reason: SEVERE PAIN (6-10/10) Last Admin: 12/16/17 03:25 Dose: 5 mg [facility]in [facility]in) [facility] Last Admin: 12/16/17 08:24 Dose: 300 mg Senna/Docusate Sodium (Senokot-S, Sri-Colace) 2 tablet PO BID [facility] Last Admin: 12/16/17 08:25 Dose: Not Given Tamsulosin HCl (Flomax) 0.4 mg PO DAILY@0830 [facility] Last Admin: 12/16/17 08:23 Dose: 0.4 mg Assessment/Plan All Active Problems (Last Reviewed 12/12/17 @ 21:51 by Jerad Tyler MD) Nondisplaced fracture of neck of left femur (Acute) Multiple falls (Acute) Compression fx, thoracic spine (Acute) Debility s/p total left hip replacement, complicated by Parkinson, seizures and compression fractures of the thoracic spine. Goal of rehab is yarsanism of functional independence. 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
--- NOTE | 2017-12-16 08:44 | HP.PCM.COS_ITS ---
History of Present Illness Date of Admission: 12/15/17 Chief Complaint: Left Total Hip Replacement The patient is a 57 year old right handed male, who is admitted to the Rehab unit for Rehabilitation after a mechanical fall from standing. He has a PMH: HTN, HLD, Hypothyroidism, BPH, seizures on Keppra, Parkinson which he is not on medication for. He underwent a Total Left Hip Replacement for a left impacted nondisplaced fracture with Dr. Walden, he tolerated the procedure well. He is on Aspirin 325mg BID per Orthopedics for DVT PPX. He lives with a oil filters inspector in a single story home with 1 steps to get into the home, he uses a walker to ambulate, he was previously completely functionally independent and is admitted to the rehab unit in order to restore his previous level of functional independence. Past Medical History Medical History: Medical History (Last Reviewed 12/12/17 @ 21:51 by Jerad Tyler MD) BPH (benign prostatic hyperplasia) N40.0 Parkinson disease G20 Seizure disorder G40.909 Allergies No Known Allergies Allergy (Verified 12/12/17 17:43) Home Medications: Ambulatory Orders Medication Instructions Recorded atorvastatin 40 mg tablet 40 mg PO QHS 12/03/17 divalproex 250 mg tablet,delayed 500 mg PO QHS 12/03/17 release levothyroxine 50 mcg capsule 50 mcg PO DAILY 12/03/17 mirtazapine 30 mg tablet 15 mg PO DAILY 12/03/17 phenytoin sodium extended 100 mg 300 mg PO DAILY 12/03/17 capsule tamsulosin 0.4 mg capsule 0.4 mg PO DAILY 12/03/17 Ergocalciferol [Vitamin D] 50,000 unit PO Q7D 12/12/17 Acetaminophen [Tylenol] 1,000 mg PO Q8 12/15/17 Aspirin 325 mg PO BID 12/15/17 Ensure Enlive 120 ml PO 4X/DAY 12/15/17 Magnesium Hydroxide [Milk Of 30 ml PO DAILY PRN PRN udc 12/15/17 Magnesia] Nicotine [Nicoderm Cq] 21 mg TRANSDERM. 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, - Tobacco Use: Non-smoker, Chew - Tobacco, - - dips snuff Alcohol: Rare Drugs: None Review of Systems Constitutional: Denies: Chills, Fever, Weight Change HEENT: Denies: Head Aches, Sinus Congestion, Sinus Drainage Cardiovascular: Denies: Chest Pain, Palpitations Respiratory: Denies: Cough, Shortness of breath at rest, Sputum production Gastrointestinal: Denies: Abdominal Pain, Nausea, Vomiting Genitourinary: Denies: Dysuria Musculoskeletal: Denies: Joint Pain, Joint Tenderness Skin: Denies: Rash, Wounds Neurological: Denies: Numbness, Tingling, Focal weakness Psychiatric: Denies: Anxiety, Depression, Homicidal Ideations, Suicidal Ideations Hematologic/ Lymphatic: Denies: Easy Bruising, Easy Bleeding VTE Information - Inpt Only VTE Present on Admission: No VTE Mechan Device Prophylaxis: SCD's, Knee High AGUSTÍN Hose VTE Pharm Prophylaxis ordered?: Yes - Physical Exam General: Alert, Oriented x3, Cooperative HEENT: Atraumatic, PERRLA, EOMI, Normocephalic Neck: Supple, No JVD, Negative Carotid Bruits Lungs: Clear to auscultation, Normal air movement Cardiovascular: Regular rate, No murmurs Abdomen: Bowel Sounds Present, Soft, Non Tender Extremities: No edema, Capillary Refill Less than 3 Seconds Skin: No rashes, No breakdown Musculoskeletal: No Tenderness to Palpation of Joints or Extremities Neurological: Cranial nerves II-XII grossly intact Psych/Mental Status: Normal Affect, Appropriate, Alert and oriented to time, place, person, mood and affect Vital Signs Temp Pulse Resp BP Pulse Ox 98.0 F 92 18 128/86 H 96 12/15/17 22:00 12/15/17 22:00 12/15/17 22:00 12/15/17 22:00 12/16/17 06:20 Oxygen Delivery Method Room Air Weight: 70.76 kg Body Mass Index (BMI) 23.6 Laboratory Tests Past 24 Hrs 12/16/17 12/16/17 05:00 05:00 WBC 7.7 RBC 3.70 L Hgb 11.1 L Hct 34.4 L MCV 93.0 MCH 30.0 MCHC 32.3 RDW 14.6 RDW Differential 47.9 H Plt Count 152 MPV 10.7 Sodium 143 Potassium 3.7 Chloride 111 H Carbon Dioxide 25.0 Anion Gap 7 BUN 11 Creatinine 0.65 L Estim Creat Clear Calc 121.31 Est GFR (MDRD) Af Amer 162 Est GFR (MDRD) Non-Af 134 BUN/Creatinine Ratio 16.9 Glucose 84 Calcium 8.0 L Active Medications Acetaminophen (Tylenol) 1,000 mg PO Q8 [facility] Last Admin: 12/16/17 06:29 Dose: 1,000 mg Aspirin (Aspirin) 325 mg PO BIDCM [facility] Last Admin: 12/16/17 08:24 Dose: 325 mg Atorvastatin Calcium (Lipitor) 40 mg PO QHS [facility] Last Admin: 12/15/17 20:28 Dose: 40 mg Bisacodyl (Dulcolax) 10 mg RECTAL .PRN X 1 PRN PRN Reason: Constipation Divalproex Sodium (Depakote) 500 mg PO QHS [facility] Last Admin: 12/15/17 20:24 Dose: 500 mg Enoxaparin Sodium (Lovenox) 40 mg SC DAILY@0600 [facility] Last Admin: 12/16/17 06:30 Dose: 40 mg Ergocalciferol (Vitamin D) 50,000 unit PO Q7D [facility] Last Admin: 12/16/17 08:23 Dose: 50,000 unit Levothyroxine Sodium (Synthroid) 50 mcg PO DAILY@0600 [facility] Last Admin: 12/16/17 06:30 Dose: 50 mcg Magnesium Hydroxide (Milk Of Magnesia) 30 ml PO .PRN X 1 PRN PRN Reason: Constipation Mirtazapine (Remeron) 15 mg PO QHS [facility] Last Admin: 12/15/17 20:28 Dose: 15 mg Nicotine (Nicoderm Cq (Pbkc)) 21 mg TRANSDERM. DAILY [facility] Last Admin: 12/16/17 08:23 Dose: 21 mg Nutritional Formula (Lactose Free) (Ensure Enlive) 120 ml PO 4X/DAY [facility] Last Admin: 12/16/17 08:23 Dose: Not Given Oxycodone HCl (Oxyir) 5 mg PO Q6H PRN PRN PRN Reason: SEVERE PAIN (6-10/10) Last Admin: 12/16/17 03:25 Dose: 5 mg Phenytoin [facility] ([facility]in) [facility] Last Admin: 12/16/17 08:24 Dose: 300 mg Senna/Docusate Sodium (Senokot-S, Sri-Colace) 2 tablet PO BID [facility] Last Admin: 12/16/17 08:25 Dose: Not Given Tamsulosin HCl (Flomax) 0.4 mg PO DAILY@0830 [facility] Last Admin: 12/16/17 08:23 Dose: 0.4 mg Assessment/Plan All Active Problems (Last Reviewed 12/12/17 @ 21:51 by Jerad Tyler MD) Nondisplaced fracture of neck of left femur (Acute) Multiple falls (Acute) Compression fx, thoracic spine (Acute) Debility s/p total left hip replacement, complicated by Parkinson, seizures and compression fractures of the thoracic spine. Goal of rehab is advent of functional independence. 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
--- NOTE | 2017-12-16 10:35 | REHABEVAL_ITS ---
Admission Information Status Changes from Prescreening?: No changes Identified Actual Problem List:: Falls, Pain, ALteration in Cmfrt, Cognitve Impr/Memory Loss, Bowel, Constipation, Mobility Impaired, Self Care Deficit, Ineffect.D/C Plan r/t Psy Potential Problem List:: DVT, Bleeding, Infection, UTI, Aspiration, Falls, Skin Integrity, Depression Risk of Complications DVT: LMWH, AGUSTÍN Hose, Sequential Compression Device Bleeding: Monitor Lab Values, Nursing to Teach Precautions for anti-coagulation therapy., Wound, if applicable, to be assessed every shift., Stroke patients assessed for lethargy or change in status. Infection: Clinical Staff to Monitor for S/S of infection:, S/S of infection include fever, redness, warmth, etc. Urinary Tract Infection: Monitor for frequency, burning, discomfort, or incontinence., Nursing will obtain urine sample for urinalysis and C&S when ordered. Aspiration: Clinical staff will monitor for coughing, drooling, congestion., Speech will evaluate swallowing and dsyphasia., Nursing will monitor patient swallowing during meals. Falls: Patient will be evaluated for Fall Precautions, Patient will be placed on Fall Precautions as indicated per protocol. Skin Breakdown: Nursing will assess skin daily using assessment tool., Nursing will place on Skin Breakdown Precautions as indicated. Pain: Clinical staff will assess patient's pain level per protocol., Medications will be given, if needed, and the pain level reassessed., Other methods: Massage, distraction, decrease stimulus, etc. used PRN. Plan of Care Patient requires physician specializing in physical medicine and rehab oversight to provide close medical supervision of rehab issues including: Pain Management, Sleep Problems, Bowel and Bladder, Medical and co-morbidity Management, DVT prophylaxis, Rehabilitation Leadership, Coordination of treatment team Patient needs Physical Therapy: For a minimum of 1 hour, At least 5 out of 7 days Patient needs Physical Therapy to improve:: Mobility, Mobility, Mobility, Strengthening, Transfers, Stretching, ROM, Endurance, Stairs, Gait, Balance Patient needs Occupational Therapy: For a minimum of 1 hour, At least 5 out of 7 days Patient needs Occupational Therapy to improve ADL's incl.: Eating, Grooming, Bathing, Dressing, Toileting, Toilet transfers, Community Reintegration, Higher functioning activities, Household tasks, Adaptive Equipment, Splinting, Other activities as determined Patient requires speech therapy: For a minimum of 1 hour, At least 5 out of 7 days Patient requires speech therapy for: Swallowing, Cognition, Language Skills, Compensatory Strategies Patient requires 24/ Rehabilitation Nursing for: Pain Issues, Identifying and preventing risk factors, Monitoring and reporting current medical conditions, Assisting with ambulation, transfer, and all ADL's, Teaching patients about disease process and medications, Family teaching, Providing safe environment, Bowel and Bladder Issues, Skin integrity, Medication Management Patient needs Bottling Machine Operator/ Case Management for: Discharge Planning, Arranging Home Equipment or Services, Family Interventions Patient needs Dietary and Nutrition Services for: Adequate Nutrition, Nutritional Supplements, Nutritional Education Goals Patient will remain: free from falls, or injury at time of discharge. Patient will perform bed mobility at: MOD I level of assist. Patient will complete transfers from bed to chair at: MOD I level of assist. Patient will ambulate: 100 feet, with MOD I assist, with LRD Patient will complete upper body dressing at: MOD I level of assist. Patient will complete lower body dressing at: MOD I level of assist. Patient will complete toileting at: MOD I level of assist. Patient will perform bathing at: MOD I level of assist. Patient will complete grooming at: MOD I level of assist. Patient will complete home management skills at: MOD I level of assist. Patient will achieve: 12 stairs, at MOD I assist Patient will have pain level of: of 3 or less Patient's skin will: remain intact, free from infection. Patient will receive: adequate nutrition. Discharge Planning Pt Prognosis for Sig. Practical Improv. w/in Reasonable Time: Good Anticipated D/C Destination: Home with Outpt Therapy Was Preadmission Assessment Accurate?: Yes
--- NOTE | 2017-12-16 11:23 | PCM.PN.HOSP ---
Subjective: Antoni Blanton is a 57-year-old male with a past medical history significant for seizure disorder, Parkinson's disease who presented after a fall on the same day of his hospital admission. He went to the operating room and had a left total hip arthroplasty for a nondisplaced left femoral neck fracture. This operatively he did very well with rehab. Did have an episode of hypotension overnight on postop day 1 that resolved with IV fluids and though his H&H had dropped from around 14 to between 10 and 11 his hemoglobin the next day they come back to 11.1. Discharge from the hospital and admitted to rehab yesterday and medicine was consulted to assist with medical management on the rehab side. Orth O recommended to continue aspirin 325 mg twice daily for postop DVT prophylaxis and that he is weightbearing as tolerated. We did notice on the inpatient side that he has had a significant history of compression fractures as well as the other nondisplaced fractures of the left femur, this raises concern for possible osteomalacia or osteoporosis and osteomalacia is a known side effect of phenytoin. He is currently on both Depakote and phenytoin for seizure prophylaxis. Currently he feels well and is participating in rehab and denies any issues. Vitals/I&O's: Vital Signs Temp Pulse Resp BP Pulse Ox 98.1 F 102 H 20 H 116/77 95 12/16/17 07:52 12/16/17 07:52 12/16/17 07:52 12/16/17 07:52 12/16/17 07:52 Oxygen Delivery Method Room Air Weight: 156 lb Body Mass Index (BMI) 23.6 General: Alert, Oriented x3, Cooperative, No apparent distress HEENT: Atraumatic, EOMI, Normocephalic Oral: Moist Mucosa Neck: Supple, No JVD Lungs: Clear to auscultation, Normal air movement, No rhonchi, No wheeze, No rales Cardiovascular: Regular rate, Regular Rhythm, Normal S1, Normal S2, No murmurs Abdomen: Soft, Non Tender, Non-Distended, No Hepato-splenomegaly Extremities: No edema, Capillary Refill Less than 3 Seconds Skin: No rashes, No breakdown, Incision - CDI Neurological: Neuro grossly intact, Sensory exam intact to light touch and pain Psych/Mental Status: Normal Affect, Appropriate Laboratory Results 12/16/17 05:00: WBC 7.7, RBC 3.70 L, Hgb 11.1 L, Hct 34.4 L, MCV 93.0, MCH 30.0, MCHC 32.3, RDW 14.6, RDW Differential 47.9 H, Plt Count 152, MPV 10.7 12/16/17 05:00: Sodium 143, Potassium 3.7, Chloride 111 H, Carbon Dioxide 25.0, Anion Gap 7, BUN 11, Creatinine 0.65 L, Estim Creat Clear Calc 121.31, Est GFR (MDRD) Af Amer 162, Est GFR (MDRD) Non-Af 134, BUN/Creatinine Ratio 16.9, Glucose 84, Calcium 8.0 L Current Medications Acetaminophen (Tylenol) 1,000 mg PO Q8 [facility] Last Admin: 12/16/17 06:29 Dose: 1,000 mg Aspirin (Aspirin) 325 mg PO BIDCM [facility] Last Admin: 12/16/17 08:24 Dose: 325 mg Atorvastatin Calcium (Lipitor) 40 mg PO QHS [facility] Last Admin: 12/15/17 20:28 Dose: 40 mg Bisacodyl (Dulcolax) 10 mg RECTAL .PRN X 1 PRN PRN Reason: Constipation Divalproex Sodium (Depakote) 500 mg PO QHS [facility] Last Admin: 12/15/17 20:24 Dose: 500 mg Enoxaparin Sodium (Lovenox) 40 mg SC DAILY@0600 [facility] Last Admin: 12/16/17 06:30 Dose: 40 mg Ergocalciferol (Vitamin D) 50,000 unit PO Q7D [facility] Last Admin: 12/16/17 08:23 Dose: 50,000 unit Levothyroxine Sodium (Synthroid) 50 mcg PO DAILY@0600 [facility] Last Admin: 12/16/17 06:30 Dose: 50 mcg Magnesium Hydroxide (Milk Of Magnesia) 30 ml PO .PRN X 1 PRN PRN Reason: Constipation Mirtazapine (Remeron) 15 mg PO QHS [facility] Last Admin: 12/15/17 20:28 Dose: 15 mg Nicotine (Nicoderm Cq (Pbkc)) 21 mg TRANSDERM. DAILY [facility] Last Admin: 12/16/17 08:23 Dose: 21 mg Nutritional Formula (Lactose Free) (Ensure Enlive) 120 ml PO 4X/DAY [facility] Last Admin: 12/16/17 08:23 Dose: Not Given Oxycodone HCl (Oxyir) 5 mg PO Q6H PRN PRN PRN Reason: SEVERE PAIN (6-12/01) Last Admin: 12/16/17 03:25 Dose: 5 mg Phenytoin Sodium (Dilantin) 300 mg PO DAILYCM [facility] Last Admin: 12/16/17 08:24 Dose: 300 mg Senna/Docusate Sodium (Senokot-S, Sri-Colace) 2 tablet PO BID [facility] Last Admin: 12/16/17 08:25 Dose: Not Given Tamsulosin HCl (Flomax) 0.4 mg PO DAILY@0830 [facility] Last Admin: 12/16/17 08:23 Dose: 0.4 mg Medical Necessity - Tobacco Use Smoking Status: Current every day smoker Assessment/Plan All Active Problems (Last Reviewed 12/12/17 @ 21:51 by Jerad Tyler MD) Nondisplaced fracture of neck of left femur (Acute) Multiple falls (Acute) Compression fx, thoracic spine (Acute) 1. Nondisplaced left femoral neck fracture/possible osteomalacia/elevated PTH/normocalcemia -Status post repair by Ortho -Aspirin 325 twice daily for DVT prophylaxis per orthopedic surgery -PT/OT -Weekly vitamin D - plan for bisphosphonate after discharge -Repeat CBC periodically during rehab stay 2. Parkinson's/seizure disorder/multiple falls -Continue with Depakote and phenytoin for now -Consider switching phenytoin to another medication while in rehab and monitor for seizure progression especially if the possible osteomalacia could be due to the phenytoin -He is not on any medications for his Parkinson's disease 3. BPH -Stable -Continue with Flomax 4. Hypothyroidism -TSH was elevated but T4 was normal -Continue with home Synthroid dose 5. Hyperlipidemia -Stable -Continue with Lipitor
--- NOTE | 2017-12-16 11:31 | PN_ITS ---
Subjective: Antoni Blanton is a 57-year-old male with a past medical history significant for seizure disorder, Parkinson's disease who presented after a fall on the same day of his hospital admission. He went to the operating room and had a left total hip arthroplasty for a nondisplaced left femoral neck fracture. This operatively he did very well with rehab. Did have an episode of hypotension overnight on postop day 1 that resolved with IV fluids and though his H&H had dropped from around 14 to between 10 and 11 his hemoglobin the next day they come back to 11.1. Discharge from the hospital and admitted to rehab yesterday and medicine was consulted to assist with medical management on the rehab side. Orth O recommended to continue aspirin 325 mg twice daily for postop DVT prophylaxis and that he is weightbearing as tolerated. We did notice on the inpatient side that he has had a significant history of compression fractures as well as the other nondisplaced fractures of the left femur, this raises concern for possible osteomalacia or osteoporosis and osteomalacia is a known side effect of phenytoin. He is currently on both Depakote and phenytoin for seizure prophylaxis. Currently he feels well and is participating in rehab and denies any issues. Vitals/I&O's: Vital Signs Temp Pulse Resp BP Pulse Ox 98.1 F 102 H 20 H 116/77 95 12/16/17 07:52 12/16/17 07:52 12/16/17 07:52 12/16/17 07:52 12/16/17 07:52 Oxygen Delivery Method Room Air Weight: 156 lb Body Mass Index (BMI) 23.6 General: Alert, Oriented x3, Cooperative, No apparent distress HEENT: Atraumatic, EOMI, Normocephalic Oral: Moist Mucosa Neck: Supple, No JVD Lungs: Clear to auscultation, Normal air movement, No rhonchi, No wheeze, No rales Cardiovascular: Regular rate, Regular Rhythm, Normal S1, Normal S2, No murmurs Abdomen: Soft, Non Tender, Non-Distended, No Hepato-splenomegaly Extremities: No edema, Capillary Refill Less than 3 Seconds Skin: No rashes, No breakdown, Incision - CDI Neurological: Neuro grossly intact, Sensory exam intact to light touch and pain Psych/Mental Status: Normal Affect, Appropriate Laboratory Results 12/16/17 05:00: WBC 7.7, RBC 3.70 L, Hgb 11.1 L, Hct 34.4 L, MCV 93.0, MCH 30.0, MCHC 32.3, RDW 14.6, RDW Differential 47.9 H, Plt Count 152, MPV 10.7 12/16/17 05:00: Sodium 143, Potassium 3.7, Chloride 111 H, Carbon Dioxide 25.0, Anion Gap 7, BUN 11, Creatinine 0.65 L, Estim Creat Clear Calc 121.31, Est GFR (MDRD) Af Amer 162, Est GFR (MDRD) Non-Af 134, BUN/Creatinine Ratio 16.9, Glucose 84, Calcium 8.0 L Current Medications Acetaminophen (Tylenol) 1,000 mg PO Q8 [facility] Last Admin: 12/16/17 06:29 Dose: 1,000 mg Aspirin (Aspirin) 325 mg PO BIDCM [facility] Last Admin: 12/16/17 08:24 Dose: 325 mg Atorvastatin Calcium (Lipitor) 40 mg PO QHS [facility] Last Admin: 12/15/17 20:28 Dose: 40 mg Bisacodyl (Dulcolax) 10 mg RECTAL .PRN X 1 PRN PRN Reason: Constipation Divalproex Sodium (Depakote) 500 mg PO QHS [facility] Last Admin: 12/15/17 20:24 Dose: 500 mg Enoxaparin Sodium (Lovenox) 40 mg SC DAILY@0600 [facility] Last Admin: 12/16/17 06:30 Dose: 40 mg Ergocalciferol (Vitamin D) 50,000 unit PO Q7D [facility] Last Admin: 12/16/17 08:23 Dose: 50,000 unit Levothyroxine Sodium (Synthroid) 50 mcg PO DAILY@0600 [facility] Last Admin: 12/16/17 06:30 Dose: 50 mcg Magnesium Hydroxide (Milk Of Magnesia) 30 ml PO .PRN X 1 PRN PRN Reason: Constipation Mirtazapine (Remeron) 15 mg PO QHS [facility] Last Admin: 12/15/17 20:28 Dose: 15 mg Nicotine (Nicoderm Cq (Pbkc)) 21 mg TRANSDERM. DAILY [facility] Last Admin: 12/16/17 08:23 Dose: 21 mg Nutritional Formula (Lactose Free) (Ensure Enlive) 120 ml PO 4X/DAY [facility] Last Admin: 12/16/17 08:23 Dose: Not Given Oxycodone HCl (Oxyir) 5 mg PO Q6H PRN PRN PRN Reason: SEVERE PAIN (6-12/01) Last Admin: 12/16/17 03:25 Dose: 5 mg Phenytoin Sodium (Dilantin) 300 mg PO DAILYCM [facility] Last Admin: 12/16/17 08:24 Dose: 300 mg Senna/Docusate Sodium (Senokot-S, Sri-Colace) 2 tablet PO BID [facility] Last Admin: 12/16/17 08:25 Dose: Not Given Tamsulosin HCl (Flomax) 0.4 mg PO DAILY@0830 [facility] Last Admin: 12/16/17 08:23 Dose: 0.4 mg Medical Necessity - Tobacco Use Smoking Status: Current every day smoker Assessment/Plan All Active Problems (Last Reviewed 12/12/17 @ 21:51 by Jerad Tyler MD) Nondisplaced fracture of neck of left femur (Acute) Multiple falls (Acute) Compression fx, thoracic spine (Acute) 1. Nondisplaced left femoral neck fracture/possible osteomalacia/elevated PTH/normocalcemia -Status post repair by Ortho -Aspirin 325 twice daily for DVT prophylaxis per orthopedic surgery -PT/OT -Weekly vitamin D - plan for bisphosphonate after discharge -Repeat CBC periodically during rehab stay 2. Parkinson's/seizure disorder/multiple falls -Continue with Depakote and phenytoin for now -Consider switching phenytoin to another medication while in rehab and monitor for seizure progression especially if the possible osteomalacia could be due to the phenytoin -He is not on any medications for his Parkinson's disease 3. BPH -Stable -Continue with Flomax 4. Hypothyroidism -TSH was elevated but T4 was normal -Continue with home Synthroid dose 5. Hyperlipidemia -Stable -Continue with Lipitor
[2017-12-16] MEDS: Divalproex Sodium 250 MG Tablet 500 MG PO (19:48)
[2017-12-16] MEDS: Mirtazapine 15 MG Tablet PO (19:49)
[2017-12-16] MEDS: Atorvastatin Calcium 40 MG Tablet PO (19:49)
[2017-12-16 19:50] VITALS: BP 151/98; PULSE 98; RESP 18; TEMP 36.7; O2SAT 95
--- NOTE | 2017-12-17 03:27 | NURSING ---
REVIEWED AND AGREE WITH SUPERVISOR SMOKE CONTROL'S FIM AND HANDOFF CHARTING.
[2017-12-17] MEDS: Enoxaparin 40 MG/0.4 ML Syringe SC (05:28)
[2017-12-17] MEDS: Levothyroxine 50 MCG Tablet PO (05:29)
[2017-12-17] MEDS: Acetaminophen 500 MG Tablet 1000 MG PO ×3 (05:29→21:00)
[2017-12-17 07:53] VITALS: BP 122/80; PULSE 95; RESP 18; TEMP 36.8; O2SAT 95
[2017-12-17 08:00] VITALS: O2SAT 95
[2017-12-17] MEDS: Tamsulosin HCl 0.4 MG Capsule PO (08:13)
[2017-12-17] MEDS: Aspirin 325 MG Tablet PO ×2 (08:13→17:24)
[2017-12-17] MEDS: Phenytoin Na 100 MG Capsule 300 MG PO (08:13)
[2017-12-17] MEDS: oxyCODONE 5 MG Tablet PO (08:19)
--- NOTE | 2017-12-17 13:00 | PCM.PN.NEU ---
Subjective: Patient seen and examined. No acute events overnight. Tolerating therapy, denies any pain or discomfort. Sleeping well, no issues with GI/. - Physical Exam General: Alert, Oriented x3, Cooperative HEENT: Atraumatic, PERRLA, EOMI, Normocephalic Neck: Supple, No JVD, Negative Carotid Bruits Lungs: Clear to auscultation, Normal air movement Cardiovascular: Regular rate, No murmurs Abdomen: Bowel Sounds Present, Soft, Non Tender Extremities: No edema, Capillary Refill Less than 3 Seconds Skin: No rashes, No breakdown Musculoskeletal: No Tenderness to Palpation of Joints or Extremities Neurological: Cranial nerves II-XII grossly intact Psych/Mental Status: Normal Affect, Appropriate, Alert and oriented to time, place, person, mood and affect Vital Signs Temp Pulse Resp BP Pulse Ox 98.3 F 95 18 122/80 H 95 12/17/17 07:53 12/17/17 07:53 12/17/17 07:53 12/17/17 07:53 12/17/17 08:00 Oxygen Delivery Method Room Air Weight: 70.76 kg Body Mass Index (BMI) 23.6 Intake and Output for Last 24 Hours 12/15/17 12/16/17 12/17/17 23:59 23:59 23:59 Intake Total 480 / 480 240 / 240 Balance 480 / 480 240 / 240 Active Medications Acetaminophen (Tylenol) 1,000 mg PO Q8 [facility] Last Admin: 12/17/17 05:29 Dose: 1,000 mg Aspirin (Aspirin) 325 mg PO BIDCM [facility] Last Admin: 12/17/17 08:13 Dose: 325 mg Atorvastatin Calcium (Lipitor) 40 mg PO QHS [facility] Last Admin: 12/16/17 19:49 Dose: 40 mg Bisacodyl (Dulcolax) 10 mg RECTAL .PRN X 1 PRN PRN Reason: Constipation Divalproex Sodium (Depakote) 500 mg PO QHS [facility] Last Admin: 12/16/17 19:48 Dose: 500 mg Enoxaparin Sodium (Lovenox) 40 mg SC DAILY@0600 [facility] Last Admin: 12/17/17 05:28 Dose: 40 mg Ergocalciferol (Vitamin D) 50,000 unit PO Q7D [facility] Last Admin: 12/16/17 08:23 Dose: 50,000 unit Levothyroxine Sodium (Synthroid) 50 mcg PO DAILY@0600 [facility] Last Admin: 12/17/17 05:29 Dose: 50 mcg Magnesium Hydroxide (Milk Of Magnesia) 30 ml PO .PRN X 1 PRN PRN Reason: Constipation Mirtazapine (Remeron) 15 mg PO QHS [facility] Last Admin: 12/16/17 19:49 Dose: 15 mg Nicotine (Nicoderm Cq (Pbkc)) 21 mg TRANSDERM. DAILY [facility] Last Admin: 12/17/17 08:13 Dose: 21 mg Oxycodone HCl (Oxyir) 5 mg PO Q6H PRN PRN PRN Reason: SEVERE PAIN (6-12/01) Last Admin: 12/17/17 08:19 Dose: 5 mg Phenytoin Sodium (Dilantin) 300 mg PO DAILYCM [facility] Last Admin: 12/17/17 08:13 Dose: 300 mg Senna/Docusate Sodium (Senokot-S, Sri-Colace) 2 tablet PO BID [facility] Last Admin: 12/17/17 08:14 Dose: Not Given Tamsulosin HCl (Flomax) 0.4 mg PO DAILY@0830 [facility] Last Admin: 12/17/17 08:13 Dose: 0.4 mg Medical Necessity - Tobacco Use Smoking Status: Current every day smoker Tobacco Use: Non-smoker, Chew - Tobacco, - - dips snuff Assessment/Plan All Active Problems (Last Reviewed 12/12/17 @ 21:51 by Jerad Tyler MD) Nondisplaced fracture of neck of left femur (Acute) Multiple falls (Acute) Compression fx, thoracic spine (Acute) Debility s/p total left hip replacement, complicated by Parkinson, seizures and compression fractures of the thoracic spine. Goal of rehab is druze of functional independence. 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
[2017-12-17 20:42] VITALS: BP 135/81; PULSE 100; RESP 16; TEMP 36.8; O2SAT 96
[2017-12-17] MEDS: Mirtazapine 15 MG Tablet PO (21:00)
[2017-12-17] MEDS: Atorvastatin Calcium 40 MG Tablet PO (21:00)
[2017-12-17] MEDS: Divalproex Sodium 250 MG Tablet 500 MG PO (21:01)
[2017-12-18] MEDS: Enoxaparin 40 MG/0.4 ML Syringe SC (06:40)
[2017-12-18] MEDS: Levothyroxine 50 MCG Tablet PO (06:40)
[2017-12-18] MEDS: Acetaminophen 500 MG Tablet 1000 MG PO ×3 (06:40→20:56)
[2017-12-18 08:08] VITALS: BP 116/74; PULSE 78; RESP 18; TEMP 36.9; O2SAT 93
[2017-12-18] MEDS: Phenytoin Na 100 MG Capsule 300 MG PO (08:42)
[2017-12-18] MEDS: Tamsulosin HCl 0.4 MG Capsule PO (08:42)
[2017-12-18] MEDS: Aspirin 325 MG Tablet PO ×2 (08:42→17:14)
[2017-12-18 20:39] VITALS: BP 122/68; PULSE 92; RESP 18; TEMP 36.6; O2SAT 97
[2017-12-18] MEDS: Atorvastatin Calcium 40 MG Tablet PO (20:57)
[2017-12-18] MEDS: Mirtazapine 15 MG Tablet PO (20:57)
[2017-12-18] MEDS: Divalproex Sodium 250 MG Tablet 500 MG PO (21:04)
[2017-12-19] MEDS: Acetaminophen 500 MG Tablet 1000 MG PO ×3 (06:28→21:19)
[2017-12-19] MEDS: Levothyroxine 50 MCG Tablet PO (06:29)
[2017-12-19] MEDS: Enoxaparin 40 MG/0.4 ML Syringe SC (06:29)
[2017-12-19 07:05] VITALS: BP 119/72; PULSE 69; RESP 20; TEMP 36.6; O2SAT 95
[2017-12-19] MEDS: Phenytoin Na 100 MG Capsule 300 MG PO (08:11)
[2017-12-19] MEDS: Aspirin 325 MG Tablet PO ×2 (08:11→16:50)
[2017-12-19] MEDS: Tamsulosin HCl 0.4 MG Capsule PO (08:11)
--- NOTE | 2017-12-19 15:52 | NURSING ---
up and ambulated in halls with walker and assist x1
[2017-12-19 20:05] VITALS: BP 128/87; PULSE 95; RESP 16; TEMP 36.6; O2SAT 95
[2017-12-19] MEDS: Mirtazapine 15 MG Tablet PO (21:19)
[2017-12-19] MEDS: Atorvastatin Calcium 40 MG Tablet PO (21:19)
[2017-12-19] MEDS: Divalproex Sodium 250 MG Tablet 500 MG PO (21:20)
[2017-12-20] MEDS: Acetaminophen 500 MG Tablet 1000 MG PO ×3 (05:03→21:19)
[2017-12-20] MEDS: Levothyroxine 50 MCG Tablet PO (05:03)
[2017-12-20] MEDS: Enoxaparin 40 MG/0.4 ML Syringe SC (05:04)
[2017-12-20 08:00] VITALS: BP 126/87; PULSE 86; RESP 20; TEMP 36.9; O2SAT 95
[2017-12-20] MEDS: Phenytoin Na 100 MG Capsule 300 MG PO (08:33)
[2017-12-20] MEDS: Tamsulosin HCl 0.4 MG Capsule PO (08:33)
[2017-12-20] MEDS: Aspirin 325 MG Tablet PO ×2 (08:33→17:52)
--- NOTE | 2017-12-20 10:15 | CASEMGMT ---
Team meeting held. Patient present, no support person able to attend at this time. Attempted to contact support person to give update on team meeting, voicemail left requesting a return phone call. No discharge date set at this time. Patient approved 16 Medicare days with a discharge on or by 12/31/17. Patient plans to return to home with caregiver at time of discharge. Patient to continue with further care and treatment on the Inpatient Rehab Unit at this time. Support given. Will continue to follow. REINALDO Mcleod COTTON PROGRAM TECHNICIAN
--- NOTE | 2017-12-20 12:23 | PN.NEURO_ITS ---
Subjective: Staffed in team meeting. Family was not present at bedside, questions where addressed. With Physical therapy, he is contact guard to stand by assist for coming to a stand from a sitting position. He requires moderate assistance for getting in and out of bed. He is able to walk 220 feet using a wheel walker at contact guard or at stand by assist. With Occupational therapy, he is a setup for upper body bathing, grooming and personal care. He requires minimal assist for bathing lower body with the use of assistive equipment devices. He is contac t guard for getting on and off the toilet and requires a light hand for getting in and out of the shower. With Nursing, his pain is well controlled, his incision dressing is scheduled to be removed on 12/25. He has Parkinson and currently is not on any medications. Will re-team next Wednesday 12/27. - Physical Exam General: Alert, Oriented x3, Cooperative HEENT: Atraumatic, PERRLA, EOMI, Normocephalic Neck: Supple, No JVD, Negative Carotid Bruits Lungs: Clear to auscultation, Normal air movement Cardiovascular: Regular rate, No murmurs Abdomen: Bowel Sounds Present, Soft, Non Tender Extremities: No edema, Capillary Refill Less than 3 Seconds Skin: No rashes, No breakdown Musculoskeletal: No Tenderness to Palpation of Joints or Extremities Neurological: Cranial nerves II-XII grossly intact Psych/Mental Status: Normal Affect, Appropriate Vital Signs Temp Pulse Resp BP Pulse Ox 98.4 F 86 20 H 126/87 H 95 12/20/17 08:00 12/20/17 08:00 12/20/17 08:00 12/20/17 08:00 12/20/17 08:00 Oxygen Delivery Method Room Air Weight: 70.76 kg Body Mass Index (BMI) 23.6 Intake and Output for Last 24 Hours 12/18/17 12/19/17 12/20/17 23:59 23:59 23:59 Intake Total 480 / 480 480 / 480 Output Total 300 / 300 Balance 180 / 180 480 / 480 Medical Necessity - Tobacco Use Smoking Status: Current every day smoker Tobacco Use: Non-smoker, Chew - Tobacco, - - dips snuff Assessment/Plan All Active Problems (Last Reviewed 12/12/17 @ 21:51 by Jerad Tyler MD) Nondisplaced fracture of neck of left femur (Acute) Multiple falls (Acute) Compression fx, thoracic spine (Acute) Debility s/p total left hip replacement, complicated by Parkinson, seizures and compression fractures of the thoracic spine. Goal of rehab is scientologist of functional independence. 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
[2017-12-20] MEDS: Atorvastatin Calcium 40 MG Tablet PO (21:19)
[2017-12-20] MEDS: Divalproex Sodium 250 MG Tablet 500 MG PO (21:19)
[2017-12-20] MEDS: Mirtazapine 15 MG Tablet PO (21:20)
[2017-12-20 21:25] VITALS: BP 134/90; PULSE 93; RESP 16; TEMP 36.7; O2SAT 96
--- NOTE | 2017-12-20 21:33 | NURSING ---
Pt refused mouth care tonight
--- NOTE | 2017-12-21 04:22 | NURSING ---
Reviewed and agree with SENIOR ACTUARIAL ANALYST documentation and FIMs charting.
[2017-12-21] MEDS: Levothyroxine 50 MCG Tablet PO (06:53)
[2017-12-21] MEDS: Enoxaparin 40 MG/0.4 ML Syringe SC (06:53)
[2017-12-21] MEDS: Acetaminophen 500 MG Tablet 1000 MG PO ×3 (06:53→20:09)
[2017-12-21] MEDS: Phenytoin Na 100 MG Capsule 300 MG PO (08:51)
[2017-12-21] MEDS: Aspirin 325 MG Tablet PO ×2 (08:51→17:41)
[2017-12-21] MEDS: Tamsulosin HCl 0.4 MG Capsule PO (08:51)
[2017-12-21 09:19] VITALS: BP 138/86; PULSE 96; RESP 17; TEMP 36.6; O2SAT 96
--- NOTE | 2017-12-21 09:38 | PN.NEURO_ITS ---
Subjective: Patient seen and examined. No new complaints. Tolerating therapy. Denies any shortness of breath or chest pains. Tolerating regular diet, noissues with GI/. - Physical Exam General: Alert, Oriented x3, Cooperative HEENT: Atraumatic, PERRLA, EOMI, Normocephalic Neck: Supple, No JVD, Negative Carotid Bruits Lungs: Clear to auscultation, Normal air movement Cardiovascular: Regular rate, No murmurs Abdomen: Bowel Sounds Present, Soft, Non Tender Extremities: No edema, Capillary Refill Less than 3 Seconds Skin: No rashes, No breakdown Musculoskeletal: No Tenderness to Palpation of Joints or Extremities Neurological: Cranial nerves II-XII grossly intact Psych/Mental Status: Normal Affect, Appropriate, Alert and oriented to time, place, person, mood and affect Vital Signs Temp Pulse Resp BP Pulse Ox 97.8 F 96 17 138/86 H 96 12/21/17 09:19 12/21/17 09:19 12/21/17 09:19 12/21/17 09:19 12/21/17 09:19 Oxygen Delivery Method Room Air Weight: 70.76 kg Body Mass Index (BMI) 23.6 Intake and Output for Last 24 Hours 12/19/17 12/20/17 12/21/17 23:59 23:59 23:59 Intake Total 480 / 480 240 / 240 Balance 480 / 480 240 / 240 Active Medications Acetaminophen (Tylenol) 1,000 mg PO Q8 [facility] Last Admin: 12/21/17 06:53 Dose: 1,000 mg Aspirin (Aspirin) 325 mg PO BIDCM [facility] Last Admin: 12/21/17 08:51 Dose: 325 mg Atorvastatin Calcium (Lipitor) 40 mg PO QHS [facility] Last Admin: 12/20/17 21:19 Dose: 40 mg Bisacodyl (Dulcolax) 10 mg RECTAL .PRN X 1 PRN PRN Reason: Constipation Divalproex Sodium (Depakote) 500 mg PO QHS [facility] Last Admin: 12/20/17 21:19 Dose: 500 mg Enoxaparin Sodium (Lovenox) 40 mg SC DAILY@0600 [facility] Last Admin: 12/21/17 06:53 Dose: 40 mg Ergocalciferol (Vitamin D) 50,000 unit PO Q7D [facility] Last Admin: 12/16/17 08:23 Dose: 50,000 unit Levothyroxine Sodium (Synthroid) 50 mcg PO DAILY@0600 [facility] Last Admin: 12/21/17 06:53 Dose: 50 mcg Magnesium Hydroxide (Milk Of Magnesia) 30 ml PO .PRN X 1 PRN PRN Reason: Constipation Mirtazapine (Remeron) 15 mg PO QHS [facility] Last Admin: 12/20/17 21:20 Dose: 15 mg Nicotine (Nicoderm Cq (Pbkc)) 21 mg TRANSDERM. DAILY [facility] Last Admin: 12/21/17 08:51 Dose: 21 mg Oxycodone HCl (Oxyir) 5 mg PO Q6H PRN PRN PRN Reason: SEVERE PAIN (-12/01) Last Admin: 12/17/17 08:19 Dose: 5 mg Phenytoin Sodium (Dilantin) 300 mg PO DAILYCM [facility] Last Admin: 12/21/17 08:51 Dose: 300 mg Senna/Docusate Sodium (Senokot-S, Sri-Colace) 2 tablet PO BID [facility] Last Admin: 12/21/17 08:49 Dose: Not Given Tamsulosin HCl (Flomax) 0.4 mg PO DAILY@0830 [facility] Last Admin: 12/21/17 08:51 Dose: 0.4 mg Medical Necessity - Tobacco Use Smoking Status: Current every day smoker Tobacco Use: Non-smoker, Chew - Tobacco, - - dips snuff Assessment/Plan All Active Problems (Last Reviewed 12/12/17 @ 21:51 by Jerad Tyler MD) Nondisplaced fracture of neck of left femur (Acute) Multiple falls (Acute) Compression fx, thoracic spine (Acute) Debility s/p total left hip replacement, complicated by Parkinson, seizures and compression fractures of the thoracic spine. Goal of rehab is congregational of functional independence. 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 will schedule X-rays for 12/24 in prep for visit.
[2017-12-21] MEDS: oxyCODONE 5 MG Tablet PO (12:39)
[2017-12-21 19:40] VITALS: BP 137/72; PULSE 86; RESP 16; TEMP 36.6; O2SAT 96
[2017-12-21] MEDS: Mirtazapine 15 MG Tablet PO (20:10)
[2017-12-21] MEDS: Atorvastatin Calcium 40 MG Tablet PO (20:10)
[2017-12-21] MEDS: Divalproex Sodium 250 MG Tablet 500 MG PO (20:10)
[2017-12-22] MEDS: Enoxaparin 40 MG/0.4 ML Syringe SC (05:46)
[2017-12-22] MEDS: Levothyroxine 50 MCG Tablet PO (05:46)
[2017-12-22] MEDS: Acetaminophen 500 MG Tablet 1000 MG PO ×3 (05:46→22:17)
[2017-12-22] MEDS: oxyCODONE 5 MG Tablet PO ×3 (07:27→22:00)
[2017-12-22] MEDS: Phenytoin Na 100 MG Capsule 300 MG PO (07:27)
[2017-12-22] MEDS: Tamsulosin HCl 0.4 MG Capsule PO (07:28)
[2017-12-22] MEDS: Aspirin 325 MG Tablet PO (07:28)
[2017-12-22 07:58] VITALS: BP 114/85; PULSE 89; RESP 18; TEMP 36.8; O2SAT 94
--- NOTE | 2017-12-22 12:06 | PN.NEURO_ITS ---
Subjective: Patient seen during therapy session. No new complaints, tolerating therapy. No issue with GI/, tolerating regular diet. - Physical Exam General: Alert, Oriented x3, Cooperative HEENT: Atraumatic, PERRLA, EOMI, Normocephalic Neck: Supple, No JVD, Negative Carotid Bruits Lungs: Clear to auscultation, Normal air movement Cardiovascular: Regular rate, No murmurs Abdomen: Bowel Sounds Present, Soft, Non Tender Extremities: No edema, Capillary Refill Less than 3 Seconds Skin: No rashes, No breakdown Musculoskeletal: No Tenderness to Palpation of Joints or Extremities Neurological: Cranial nerves II-XII grossly intact Psych/Mental Status: Normal Affect, Appropriate, Alert and oriented to time, place, person, mood and affect Vital Signs Temp Pulse Resp BP Pulse Ox 98.3 F 89 18 114/85 H 94 12/22/17 07:58 12/22/17 07:58 12/22/17 07:58 12/22/17 07:58 12/22/17 07:58 Oxygen Delivery Method Room Air Weight: 68.5 kg Body Mass Index (BMI) 23.6 Intake and Output for Last 24 Hours 12/20/17 12/21/17 12/22/17 23:59 23:59 23:59 Intake Total 240 / 240 240 / 240 240 / 240 Balance 240 / 240 240 / 240 240 / 240 Active Medications Acetaminophen (Tylenol) 1,000 mg PO Q8 [facility] Last Admin: 12/22/17 05:46 Dose: 1,000 mg Aspirin (Aspirin) 325 mg PO BIDCM [facility] Last Admin: 12/22/17 07:28 Dose: 325 mg Atorvastatin Calcium (Lipitor) 40 mg PO QHS [facility] Last Admin: 12/21/17 20:10 Dose: 40 mg Bisacodyl (Dulcolax) 10 mg RECTAL .PRN X 1 PRN PRN Reason: Constipation Divalproex Sodium (Depakote) 500 mg PO QHS [facility] Last Admin: 12/21/17 20:10 Dose: 500 mg Enoxaparin Sodium (Lovenox) 40 mg SC DAILY@0600 [facility] Last Admin: 12/22/17 05:46 Dose: 40 mg Ergocalciferol (Vitamin D) 50,000 unit PO Q7D [facility] Last Admin: 12/16/17 08:23 Dose: 50,000 unit Levothyroxine Sodium (Synthroid) 50 mcg PO DAILY@0600 [facility] Last Admin: 12/22/17 05:46 Dose: 50 mcg Magnesium Hydroxide (Milk Of Magnesia) 30 ml PO .PRN X 1 PRN PRN Reason: Constipation Mirtazapine (Remeron) 15 mg PO QHS [facility] Last Admin: 12/21/17 20:10 Dose: 15 mg Nicotine (Nicoderm Cq (Pbkc)) 21 mg TRANSDERM. DAILY [facility] Last Admin: 12/22/17 08:28 Dose: 21 mg Oxycodone HCl (Oxyir) 5 mg PO Q6H PRN PRN PRN Reason: SEVERE PAIN (6-12/01) Last Admin: 12/22/17 07:27 Dose: 5 mg Oxycodone HCl (Oxyir) 5 mg PO DAILY@0600 [facility] Phenytoin Sodium (Dilantin) 300 mg PO DAILYCM [facility] Last Admin: 12/22/17 07:27 Dose: 300 mg Senna/Docusate Sodium (Senokot-S, Sri-Colace) 2 tablet PO BID [facility] Last Admin: 12/22/17 07:31 Dose: Not Given Tamsulosin HCl (Flomax) 0.4 mg PO DAILY@0830 [facility] Last Admin: 12/22/17 07:28 Dose: 0.4 mg Medical Necessity - Tobacco Use Smoking Status: Current every day smoker Tobacco Use: Non-smoker, Chew - Tobacco, - - dips snuff Assessment/Plan All Active Problems (Last Reviewed 12/12/17 @ 21:51 by Jerad Tyler MD) Nondisplaced fracture of neck of left femur (Acute) Multiple falls (Acute) Compression fx, thoracic spine (Acute) Debility s/p total left hip replacement, complicated by Parkinson, seizures and compression fractures of the thoracic spine. Goal of rehab is oriental orthodox of functional independence. 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 will schedule X-rays for 12/24 in prep for visit.
--- NOTE | 2017-12-22 14:56 | VDLE_ITS ---
Reason For Study: LLE Pain RIGHT LEFT CFV is compressible, spontaneous, phasic, GSV is normal. competent and demonstrates normal CFV is compressible, spontaneous, phasic, augmentation. competent, and demonstrates normal Procedure augmentation. Exam performed portable in patient room. Acute deep vein thrombosis is noted in the A preliminary report was called and/or faxed left femoral vein. to [facility] Nurse. Acute deep vein thrombosis is noted in the left popliteal vein. Acute deep vein thrombosis is noted in the left T/P Trunk. Acute deep vein thrombosis is noted in the left posterior tibial vein. LT PerV is compressible. <> Interpretation Summary Acute deep vein thrombosis is noted in the left femoral vein. Acute deep vein thrombosis is noted in the left popliteal vein. Acute deep vein thrombosis is noted in the left tibio-peroneal trunk. Acute deep vein thrombosis is noted in the left posterior tibial vein. The left common femoral vein and peroneal vein are patent and compressible. The left greater saphenous vein appears patent and compressible segmentally. Ordering Physician: Vika Spears Referring Physician: Jose Alvarez Chi Performed By: Carol Hoyos RVT and Student
[2017-12-22] MEDS: Enoxaparin 80 MG/0.8 ML Syringe 70 MG SC (18:10)
[2017-12-22 21:50] VITALS: BP 113/74; PULSE 91; RESP 16; TEMP 36.8; O2SAT 95
[2017-12-22] MEDS: Divalproex Sodium 250 MG Tablet 500 MG PO (22:01)
[2017-12-22] MEDS: Atorvastatin Calcium 40 MG Tablet PO (22:01)
[2017-12-22] MEDS: Mirtazapine 15 MG Tablet PO (22:02)
[2017-12-23] MEDS: oxyCODONE 5 MG Tablet PO ×3 (06:16→21:31)
[2017-12-23] MEDS: Acetaminophen 500 MG Tablet 1000 MG PO ×3 (06:16→21:31)
[2017-12-23] MEDS: Enoxaparin 80 MG/0.8 ML Syringe 70 MG SC ×2 (06:17→17:57)
[2017-12-23] MEDS: Levothyroxine 50 MCG Tablet PO (06:17)
[2017-12-23 07:22] VITALS: BP 103/71; PULSE 77; RESP 20; TEMP 36.7; O2SAT 94
[2017-12-23] MEDS: Tamsulosin HCl 0.4 MG Capsule PO (08:01)
[2017-12-23] MEDS: Phenytoin Na 100 MG Capsule 300 MG PO (08:01)
--- NOTE | 2017-12-23 08:41 | NURSING ---
Faye hall curriculum assistant principal updated regarding duplex scans and treatment. duplex scan results faxed to dr hall office.
--- NOTE | 2017-12-23 10:35 | PCM.PN.NEU ---
Subjective: Patient seen and examined. Patient had an Doppler of lower extremity which showed a DVT in his left leg in which he had an ORIF, he was started on therapeutic Lovenox at 1mg/kg which works out to be 70mg BID. Dr. Walden office was informed of the results. Patient is tolerating therapy. - Physical Exam General: Alert, Oriented x3, Cooperative HEENT: Atraumatic, PERRLA, EOMI, Normocephalic Neck: Supple, No JVD, Negative Carotid Bruits Lungs: Clear to auscultation, Normal air movement Cardiovascular: Regular rate, No murmurs Abdomen: Bowel Sounds Present, Soft, Non Tender Extremities: No edema, Capillary Refill Less than 3 Seconds Skin: No rashes, No breakdown Musculoskeletal: No Tenderness to Palpation of Joints or Extremities Neurological: Cranial nerves II-XII grossly intact Psych/Mental Status: Normal Affect, Appropriate, Alert and oriented to time, place, person, mood and affect Vital Signs Temp Pulse Resp BP Pulse Ox 98.0 F 77 20 H 103/71 94 12/23/17 07:22 12/23/17 07:22 12/23/17 07:22 12/23/17 07:22 12/23/17 07:22 Oxygen Delivery Method Room Air Weight: 68.5 kg Body Mass Index (BMI) 23.6 Intake and Output for Last 24 Hours 12/21/17 12/22/17 12/23/17 23:59 23:59 23:59 Intake Total 240 / 240 480 / 480 240 / 240 Balance 240 / 240 480 / 480 240 / 240 Laboratory Tests Past 24 Hrs 12/22/17 16:38 Factor VIII Activity Pending von Willebrand Comment Pending Factor II DNA Analysis Pending Active Medications Acetaminophen (Tylenol) 1,000 mg PO Q8 [facility] Last Admin: 12/23/17 06:16 Dose: 1,000 mg Atorvastatin Calcium (Lipitor) 40 mg PO QHS [facility] Last Admin: 12/22/17 22:01 Dose: 40 mg Bisacodyl (Dulcolax) 10 mg RECTAL .PRN X 1 PRN PRN Reason: Constipation Divalproex Sodium (Depakote) 500 mg PO QHS [facility] Last Admin: 12/22/17 22:01 Dose: 500 mg Enoxaparin Sodium (Lovenox) 70 mg SC Q12@0600,1800 [facility] Last Admin: 12/23/17 06:17 Dose: 70 mg Ergocalciferol (Vitamin D) 50,000 unit PO Q7D [facility] Last Admin: 12/23/17 08:01 Dose: 50,000 unit Levothyroxine Sodium (Synthroid) 50 mcg PO DAILY@0600 [facility] Last Admin: 12/23/17 06:17 Dose: 50 mcg Magnesium Hydroxide (Milk Of Magnesia) 30 ml PO .PRN X 1 PRN PRN Reason: Constipation Mirtazapine (Remeron) 15 mg PO QHS [facility] Last Admin: 12/22/17 22:02 Dose: 15 mg Nicotine (Nicoderm Cq (Pbkc)) 21 mg TRANSDERM. DAILY [facility] Last Admin: 12/23/17 08:01 Dose: 21 mg Oxycodone HCl (Oxyir) 5 mg PO Q6H PRN PRN PRN Reason: SEVERE PAIN (6-10/10) Last Admin: 12/22/17 22:00 Dose: 5 mg Oxycodone HCl (Oxyir) 5 mg PO DAILY@0600 [facility] Last Admin: 12/23/17 06:16 Dose: 5 mg Phenytoin Sodium (Dilantin) 300 mg PO DAILYCM [facility] Last Admin: 12/23/17 08:01 Dose: 300 mg Senna/Docusate Sodium (Senokot-S, Sri-Colace) 2 tablet PO BID [facility] Last Admin: 12/23/17 07:57 Dose: Not Given Tamsulosin HCl (Flomax) 0.4 mg PO DAILY@0830 [facility] Last Admin: 12/23/17 08:01 Dose: 0.4 mg Medical Necessity - Tobacco Use Smoking Status: Current every day smoker Tobacco Use: Non-smoker, Chew - Tobacco, - - dips snuff Assessment/Plan All Active Problems (Last Reviewed 12/12/17 @ 21:51 by Jerad Tyler MD) Nondisplaced fracture of neck of left femur (Acute) Multiple falls (Acute) Compression fx, thoracic spine (Acute) Debility s/p total left hip replacement, complicated by Parkinson, seizures and compression fractures of the thoracic spine. Goal of rehab is hoahaoism of functional independence. 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 will schedule X-rays for 12/24 in prep for visit. - DVT in Left leg => started on therapeutic Lovenox at 1mg/kg for 70mg BID - Family/child care training on how to administer Lovenox injections prior to discharge home
--- NOTE | 2017-12-23 10:41 | PN.NEURO_ITS ---
Subjective: Patient seen and examined. Patient had an Doppler of lower extremity which showed a DVT in his left leg in which he had an ORIF, he was started on therapeutic Lovenox at 1mg/kg which works out to be 70mg BID. Dr. Walden office was informed of the results. Patient is tolerating therapy. - Physical Exam General: Alert, Oriented x3, Cooperative HEENT: Atraumatic, PERRLA, EOMI, Normocephalic Neck: Supple, No JVD, Negative Carotid Bruits Lungs: Clear to auscultation, Normal air movement Cardiovascular: Regular rate, No murmurs Abdomen: Bowel Sounds Present, Soft, Non Tender Extremities: No edema, Capillary Refill Less than 3 Seconds Skin: No rashes, No breakdown Musculoskeletal: No Tenderness to Palpation of Joints or Extremities Neurological: Cranial nerves II-XII grossly intact Psych/Mental Status: Normal Affect, Appropriate, Alert and oriented to time, place, person, mood and affect Vital Signs Temp Pulse Resp BP Pulse Ox 98.0 F 77 20 H 103/71 94 12/23/17 07:22 12/23/17 07:22 12/23/17 07:22 12/23/17 07:22 12/23/17 07:22 Oxygen Delivery Method Room Air Weight: 68.5 kg Body Mass Index (BMI) 23.6 Intake and Output for Last 24 Hours 12/21/17 12/22/17 12/23/17 23:59 23:59 23:59 Intake Total 240 / 240 480 / 480 240 / 240 Balance 240 / 240 480 / 480 240 / 240 Laboratory Tests Past 24 Hrs 12/22/17 16:38 Factor VIII Activity Pending von Willebrand Comment Pending Factor II DNA Analysis Pending Active Medications Acetaminophen (Tylenol) 1,000 mg PO Q8 [facility] Last Admin: 12/23/17 06:16 Dose: 1,000 mg Atorvastatin Calcium (Lipitor) 40 mg PO QHS [facility] Last Admin: 12/22/17 22:01 Dose: 40 mg Bisacodyl (Dulcolax) 10 mg RECTAL .PRN X 1 PRN PRN Reason: Constipation Divalproex Sodium (Depakote) 500 mg PO QHS [facility] Last Admin: 12/22/17 22:01 Dose: 500 mg Enoxaparin Sodium (Lovenox) 70 mg SC Q12@0600,1800 [facility] Last Admin: 12/23/17 06:17 Dose: 70 mg Ergocalciferol (Vitamin D) 50,000 unit PO Q7D [facility] Last Admin: 12/23/17 08:01 Dose: 50,000 unit Levothyroxine Sodium (Synthroid) 50 mcg PO DAILY@0600 [facility] Last Admin: 12/23/17 06:17 Dose: 50 mcg Magnesium Hydroxide (Milk Of Magnesia) 30 ml PO .PRN X 1 PRN PRN Reason: Constipation Mirtazapine (Remeron) 15 mg PO QHS [facility] Last Admin: 12/22/17 22:02 Dose: 15 mg Nicotine (Nicoderm Cq (Pbkc)) 21 mg TRANSDERM. DAILY [facility] Last Admin: 12/23/17 08:01 Dose: 21 mg Oxycodone HCl (Oxyir) 5 mg PO Q6H PRN PRN PRN Reason: SEVERE PAIN (6-10/10) Last Admin: 12/22/17 22:00 Dose: 5 mg Oxycodone HCl (Oxyir) 5 mg PO DAILY@0600 [facility] Last Admin: 12/23/17 06:16 Dose: 5 mg Phenytoin Sodium (Dilantin) 300 mg PO DAILYCM [facility] Last Admin: 12/23/17 08:01 Dose: 300 mg Senna/Docusate Sodium (Senokot-S, Sri-Colace) 2 tablet PO BID [facility] Last Admin: 12/23/17 07:57 Dose: Not Given Tamsulosin HCl (Flomax) 0.4 mg PO DAILY@0830 [facility] Last Admin: 12/23/17 08:01 Dose: 0.4 mg Medical Necessity - Tobacco Use Smoking Status: Current every day smoker Tobacco Use: Non-smoker, Chew - Tobacco, - - dips snuff Assessment/Plan All Active Problems (Last Reviewed 12/12/17 @ 21:51 by Jerad Tyler MD) Nondisplaced fracture of neck of left femur (Acute) Multiple falls (Acute) Compression fx, thoracic spine (Acute) Debility s/p total left hip replacement, complicated by Parkinson, seizures and compression fractures of the thoracic spine. Goal of rehab is evangelical of functional independence. 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 will schedule X-rays for 12/24 in prep for visit. - DVT in Left leg => started on therapeutic Lovenox at 1mg/kg for 70mg BID - Family/team primary care physician training on how to administer Lovenox injections prior to discharge home
[2017-12-23] MEDS: Senna/Docusate Sodium 1 Tablet 2 TABLET PO (21:30)
[2017-12-23] MEDS: Divalproex Sodium 250 MG Tablet 500 MG PO (21:30)
[2017-12-23] MEDS: Atorvastatin Calcium 40 MG Tablet PO (21:30)
[2017-12-23] MEDS: Mirtazapine 15 MG Tablet PO (21:30)
[2017-12-23 21:36] VITALS: BP 115/77; PULSE 80; RESP 18; TEMP 36.7; O2SAT 95
--- NOTE | 2017-12-23 22:34 | NURSING ---
Reviewed and agree with LPNs fims and handoff
[2017-12-24] MEDS: oxyCODONE 5 MG Tablet PO ×2 (06:50→21:01)
[2017-12-24] MEDS: Enoxaparin 80 MG/0.8 ML Syringe 70 MG SC ×2 (06:50→17:57)
[2017-12-24] MEDS: Acetaminophen 500 MG Tablet 1000 MG PO ×3 (06:50→21:01)
[2017-12-24] MEDS: Levothyroxine 50 MCG Tablet PO (06:50)
[2017-12-24 07:47] VITALS: BP 108/67; PULSE 86; RESP 16; TEMP 36.9; O2SAT 96
[2017-12-24] MEDS: Tamsulosin HCl 0.4 MG Capsule PO (08:58)
[2017-12-24] MEDS: Phenytoin Na 100 MG Capsule 300 MG PO (08:58)
--- NOTE | 2017-12-24 11:51 | PCM.PN.NEU ---
Subjective: Patient seen and examined. He is in good spirits, has no new complaints. Tolerating therapy, pain is well controlled. Does have a DVT in his left leg from his surgery started on therapeutic Lovenox 70mg BID. No issues with GI/. - Physical Exam General: Alert, Oriented x3, Cooperative HEENT: Atraumatic, PERRLA, EOMI, Normocephalic Neck: Supple, No JVD, Negative Carotid Bruits Lungs: Clear to auscultation, Normal air movement Cardiovascular: Regular rate, No murmurs Abdomen: Bowel Sounds Present, Soft, Non Tender Extremities: No edema, Capillary Refill Less than 3 Seconds Skin: No rashes, No breakdown Musculoskeletal: No Tenderness to Palpation of Joints or Extremities Neurological: Cranial nerves II-XII grossly intact Psych/Mental Status: Normal Affect, Appropriate, Alert and oriented to time, place, person, mood and affect Vital Signs Temp Pulse Resp BP Pulse Ox 98.4 F 86 16 108/67 96 12/24/17 07:47 12/24/17 07:47 12/24/17 07:47 12/24/17 07:47 12/24/17 07:47 Oxygen Delivery Method Room Air Weight: 68.5 kg Body Mass Index (BMI) 23.6 Intake and Output for Last 24 Hours 12/22/17 12/23/17 12/24/17 23:59 23:59 23:59 Intake Total 480 / 480 480 / 480 240 / 240 Balance 480 / 480 480 / 480 240 / 240 Active Medications Acetaminophen (Tylenol) 1,000 mg PO Q8 [facility] Last Admin: 12/24/17 06:50 Dose: 1,000 mg Atorvastatin Calcium (Lipitor) 40 mg PO QHS [facility] Last Admin: 12/23/17 21:30 Dose: 40 mg Bisacodyl (Dulcolax) 10 mg RECTAL .PRN X 1 PRN PRN Reason: Constipation Divalproex Sodium (Depakote) 500 mg PO QHS [facility] Last Admin: 12/23/17 21:30 Dose: 500 mg Enoxaparin Sodium (Lovenox) 70 mg SC Q12@0600,1800 [facility] Last Admin: 12/24/17 06:50 Dose: 70 mg Ergocalciferol (Vitamin D) 50,000 unit PO Q7D [facility] Last Admin: 11/01/18 08:01 Dose: 50,000 unit Levothyroxine Sodium (Synthroid) 50 mcg PO DAILY@0600 [facility] Last Admin: 12/24/17 06:50 Dose: 50 mcg Magnesium Hydroxide (Milk Of Magnesia) 30 ml PO .PRN X 1 PRN PRN Reason: Constipation Mirtazapine (Remeron) 15 mg PO QHS [facility] Last Admin: 12/23/17 21:30 Dose: 15 mg Nicotine (Nicoderm Cq (Pbkc)) 21 mg TRANSDERM. DAILY [facility] Last Admin: 12/24/17 08:57 Dose: 21 mg Oxycodone HCl (Oxyir) 5 mg PO Q6H PRN PRN PRN Reason: SEVERE PAIN (6-12/01) Last Admin: 12/23/17 21:31 Dose: 5 mg Oxycodone HCl (Oxyir) 5 mg PO DAILY@0600 [facility] Last Admin: 12/24/17 06:50 Dose: 5 mg Phenytoin Sodium (Dilantin) 300 mg PO DAILYCM [facility] Last Admin: 12/24/17 08:58 Dose: 300 mg Senna/Docusate Sodium (Senokot-S, Sri-Colace) 2 tablet PO BID [facility] Last Admin: 12/24/17 08:54 Dose: Not Given Tamsulosin HCl (Flomax) 0.4 mg PO DAILY@0830 [facility] Last Admin: 12/24/17 08:58 Dose: 0.4 mg Medical Necessity - Tobacco Use Smoking Status: Current every day smoker Tobacco Use: Non-smoker, Chew - Tobacco, - - dips snuff Assessment/Plan All Active Problems (Last Reviewed 12/12/17 @ 21:51 by Jerad Tyler MD) Nondisplaced fracture of neck of left femur (Acute) Multiple falls (Acute) Compression fx, thoracic spine (Acute) Debility s/p total left hip replacement, complicated by Parkinson, seizures and compression fractures of the thoracic spine. Goal of rehab is restorationist of functional independence. 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 will schedule X-rays for 12/24 in prep for visit. - DVT in Left leg => started on therapeutic Lovenox at 1mg/kg for 70mg BID - Family/animal care giver training on how to administer Lovenox injections prior to discharge home
--- NOTE | 2017-12-24 11:54 | PN.NEURO_ITS ---
Subjective: Patient seen and examined. He is in good spirits, has no new complaints. Tolerating therapy, pain is well controlled. Does have a DVT in his left leg from his surgery started on therapeutic Lovenox 70mg BID. No issues with GI/. - Physical Exam General: Alert, Oriented x3, Cooperative HEENT: Atraumatic, PERRLA, EOMI, Normocephalic Neck: Supple, No JVD, Negative Carotid Bruits Lungs: Clear to auscultation, Normal air movement Cardiovascular: Regular rate, No murmurs Abdomen: Bowel Sounds Present, Soft, Non Tender Extremities: No edema, Capillary Refill Less than 3 Seconds Skin: No rashes, No breakdown Musculoskeletal: No Tenderness to Palpation of Joints or Extremities Neurological: Cranial nerves II-XII grossly intact Psych/Mental Status: Normal Affect, Appropriate, Alert and oriented to time, place, person, mood and affect Vital Signs Temp Pulse Resp BP Pulse Ox 98.4 F 86 16 108/67 96 12/24/17 07:47 12/24/17 07:47 12/24/17 07:47 12/24/17 07:47 12/24/17 07:47 Oxygen Delivery Method Room Air Weight: 68.5 kg Body Mass Index (BMI) 23.6 Intake and Output for Last 24 Hours 12/22/17 12/23/17 12/24/17 23:59 23:59 23:59 Intake Total 480 / 480 480 / 480 240 / 240 Balance 480 / 480 480 / 480 240 / 240 Active Medications Acetaminophen (Tylenol) 1,000 mg PO Q8 [facility] Last Admin: 12/24/17 06:50 Dose: 1,000 mg Atorvastatin Calcium (Lipitor) 40 mg PO QHS [facility] Last Admin: 12/23/17 21:30 Dose: 40 mg Bisacodyl (Dulcolax) 10 mg RECTAL .PRN X 1 PRN PRN Reason: Constipation Divalproex Sodium (Depakote) 500 mg PO QHS [facility] Last Admin: 12/23/17 21:30 Dose: 500 mg Enoxaparin Sodium (Lovenox) 70 mg SC Q12@0600,1800 [facility] Last Admin: 12/24/17 06:50 Dose: 70 mg Ergocalciferol (Vitamin D) 50,000 unit PO Q7D [facility] Last Admin: 11/01/18 08:01 Dose: 50,000 unit Levothyroxine Sodium (Synthroid) 50 mcg PO DAILY@0600 [facility] Last Admin: 12/24/17 06:50 Dose: 50 mcg Magnesium Hydroxide (Milk Of Magnesia) 30 ml PO .PRN X 1 PRN PRN Reason: Constipation Mirtazapine (Remeron) 15 mg PO QHS [facility] Last Admin: 12/23/17 21:30 Dose: 15 mg Nicotine (Nicoderm Cq (Pbkc)) 21 mg TRANSDERM. DAILY [facility] Last Admin: 12/24/17 08:57 Dose: 21 mg Oxycodone HCl (Oxyir) 5 mg PO Q6H PRN PRN PRN Reason: SEVERE PAIN (6-12/01) Last Admin: 12/23/17 21:31 Dose: 5 mg Oxycodone HCl (Oxyir) 5 mg PO DAILY@0600 [facility] Last Admin: 12/24/17 06:50 Dose: 5 mg Phenytoin Sodium (Dilantin) 300 mg PO DAILYCM [facility] Last Admin: 12/24/17 08:58 Dose: 300 mg Senna/Docusate Sodium (Senokot-S, Sri-Colace) 2 tablet PO BID [facility] Last Admin: 12/24/17 08:54 Dose: Not Given Tamsulosin HCl (Flomax) 0.4 mg PO DAILY@0830 [facility] Last Admin: 12/24/17 08:58 Dose: 0.4 mg Medical Necessity - Tobacco Use Smoking Status: Current every day smoker Tobacco Use: Non-smoker, Chew - Tobacco, - - dips snuff Assessment/Plan All Active Problems (Last Reviewed 12/12/17 @ 21:51 by Jerad Tyler MD) Nondisplaced fracture of neck of left femur (Acute) Multiple falls (Acute) Compression fx, thoracic spine (Acute) Debility s/p total left hip replacement, complicated by Parkinson, seizures and compression fractures of the thoracic spine. Goal of rehab is congregation of functional independence. 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 will schedule X-rays for 12/24 in prep for visit. - DVT in Left leg => started on therapeutic Lovenox at 1mg/kg for 70mg BID - Family/patient care assistant training on how to administer Lovenox injections prior to discharge home
[2017-12-24] MEDS: Mirtazapine 15 MG Tablet PO (21:01)
[2017-12-24] MEDS: Divalproex Sodium 250 MG Tablet 500 MG PO (21:01)
[2017-12-24] MEDS: Atorvastatin Calcium 40 MG Tablet PO (21:01)
[2017-12-24 21:10] VITALS: BP 110/77; PULSE 95; RESP 14; TEMP 36.9; O2SAT 98
--- NOTE | 2017-12-25 04:51 | NURSING ---
Reviewed and agree with LPNs fims and handoff
[2017-12-25] MEDS: Acetaminophen 500 MG Tablet 1000 MG PO ×3 (06:49→21:37)
[2017-12-25] MEDS: oxyCODONE 5 MG Tablet PO (06:52)
[2017-12-25] MEDS: Levothyroxine 50 MCG Tablet PO (06:52)
[2017-12-25] MEDS: Enoxaparin 80 MG/0.8 ML Syringe 70 MG SC ×2 (06:53→17:40)
[2017-12-25 07:34] VITALS: BP 103/71; PULSE 88; RESP 16; TEMP 36.4; O2SAT 97
[2017-12-25] MEDS: Phenytoin Na 100 MG Capsule 300 MG PO (08:11)
[2017-12-25] MEDS: Tamsulosin HCl 0.4 MG Capsule PO (08:12)
[2017-12-25] MEDS: Senna/Docusate Sodium 1 Tablet 2 TABLET PO ×2 (08:12→21:38)
[2017-12-25 19:00] VITALS: BP 100/69; PULSE 98; RESP 16; TEMP 37.1; O2SAT 96
[2017-12-25] MEDS: Mirtazapine 15 MG Tablet PO (21:37)
[2017-12-25] MEDS: Atorvastatin Calcium 40 MG Tablet PO (21:37)
[2017-12-25] MEDS: Divalproex Sodium 250 MG Tablet 500 MG PO (21:37)
[2017-12-25 22:00] VITALS: PULSE 98; RESP 16; O2SAT 96
[2017-12-26] MEDS: Acetaminophen 500 MG Tablet 1000 MG PO ×3 (06:41→20:00)
[2017-12-26] MEDS: Levothyroxine 50 MCG Tablet PO (06:41)
[2017-12-26] MEDS: Enoxaparin 80 MG/0.8 ML Syringe 70 MG SC ×2 (06:42→17:25)
[2017-12-26] MEDS: oxyCODONE 5 MG Tablet PO ×2 (06:45→21:11)
[2017-12-26 07:57] VITALS: BP 95/66; PULSE 88; RESP 16; TEMP 36.9; O2SAT 96
[2017-12-26] MEDS: Phenytoin Na 100 MG Capsule 300 MG PO (08:17)
[2017-12-26] MEDS: Tamsulosin HCl 0.4 MG Capsule PO (08:17)
--- NOTE | 2017-12-26 11:27 | PCA ---
pt. walked more than 150 ft. in halls with contact guard assistance from this rigging engineer. pt. also used [employer] exercise bike for 20 minutes with supervision.
--- NOTE | 2017-12-26 13:41 | PCM.PROGNOTE ---
Subjective: Chief complaint: Follow-up after admission for consultation in the rehab unit after admission for nondisplaced left femoral neck fracture. Patient seen and examined. No acute events overnight. He is doing well with physical therapy. He denies any pain. He denies any other complaints. His vital signs are stable. - Physical Exam General: Alert, Oriented x3, Cooperative, No apparent distress HEENT: Atraumatic, PERRLA, EOMI, Normocephalic Oral: Moist Mucosa, No Gingival or Mucosal Lesions/ Ulcerations Neck: Supple, No JVD, Negative Carotid Bruits, Trachea Midline, Thyroid Normal Size and Texture Lungs: Clear to auscultation, No rhonchi, No wheeze, No rales Cardiovascular: Regular rate, Regular Rhythm, Normal S1, Normal S2, PMI Normal Abdomen: Bowel Sounds Present, Soft, Non Tender, Non-Distended, No Hepato-splenomegaly Extremities: No clubbing, No cyanosis, No edema Skin: No rashes, No breakdown Lymphatic: No Cervical, Supraclavicular, or Inguinal Adenopathy Neurological: Cranial nerves II-XII grossly intact, Neuro grossly intact Psych/Mental Status: Normal Affect, Appropriate Vital Signs Temp Pulse Resp BP Pulse Ox 98.4 F 88 16 95/66 96 12/26/17 07:57 12/26/17 07:57 12/26/17 07:57 12/26/17 07:57 12/26/17 07:57 Oxygen Delivery Method Room Air Weight: 151 lb 0.266 oz Body Mass Index (BMI) 23.6 Intake and Output for Last 24 Hours 12/24/17 12/25/17 12/26/17 23:59 23:59 22:59 Intake Total 720 / 720 480 / 480 240 / 240 Balance 720 / 720 480 / 480 240 / 240 Medical Necessity - Tobacco Use Smoking Status: Current every day smoker Tobacco Use: Non-smoker, Chew - Tobacco, - - dips snuff Assessment/Plan All Active Problems (Last Reviewed 12/12/17 @ 21:51 by Jerad Tyler MD) Nondisplaced fracture of neck of left femur (Acute) Multiple falls (Acute) Compression fx, thoracic spine (Acute) This is a 57 years old male patient admitted to rehabilitation unit after he suffered impacted nondisplaced left femoral neck fracture status post left total hip replacement. #1 acute mechanical impacted nondisplaced left femoral neck fracture: Status post left hip replacement. He is on Tylenol and OxyIR as needed for pain. His pain is well controlled. Vital signs are stable. He is doing well physical therapy. Plan to continue PT OT according to rehab team, probably DC home tomorrow. #2 Parkinson's disease: Currently not on medications. Stable. #3 seizure disorder: Stable, continue with Depakote and phenytoin. #4 hypothyroidism: Stable, continue levothyroxine. #5 hyperlipidemia: Continue statins. #6 benign prostatic hypertrophy: Continue Flomax. #7 DVT prophylaxis: Subcu Lovenox. This note was generated with [employer] dictation software. It may contain incorrect words, spelling, and punctuation that were not noted in checking the note before signing. Code Visit Inpatient E&M: 98069 Subs Hosp L2
--- NOTE | 2017-12-26 13:48 | PN_ITS ---
Subjective: Chief complaint: Follow-up after admission for consultation in the rehab unit after admission for nondisplaced left femoral neck fracture. Patient seen and examined. No acute events overnight. He is doing well with physical therapy. He denies any pain. He denies any other complaints. His vital signs are stable. - Physical Exam General: Alert, Oriented x3, Cooperative, No apparent distress HEENT: Atraumatic, PERRLA, EOMI, Normocephalic Oral: Moist Mucosa, No Gingival or Mucosal Lesions/ Ulcerations Neck: Supple, No JVD, Negative Carotid Bruits, Trachea Midline, Thyroid Normal Size and Texture Lungs: Clear to auscultation, No rhonchi, No wheeze, No rales Cardiovascular: Regular rate, Regular Rhythm, Normal S1, Normal S2, PMI Normal Abdomen: Bowel Sounds Present, Soft, Non Tender, Non-Distended, No Hepato- splenomegaly Extremities: No clubbing, No cyanosis, No edema Skin: No rashes, No breakdown Lymphatic: No Cervical, Supraclavicular, or Inguinal Adenopathy Neurological: Cranial nerves II-XII grossly intact, Neuro grossly intact Psych/Mental Status: Normal Affect, Appropriate Vital Signs Temp Pulse Resp BP Pulse Ox 98.4 F 88 16 95/66 96 12/26/17 07:57 12/26/17 07:57 12/26/17 07:57 12/26/17 07:57 12/26/17 07:57 Oxygen Delivery Method Room Air Weight: 151 lb 0.266 oz Body Mass Index (BMI) 23.6 Intake and Output for Last 24 Hours 12/24/17 12/25/17 12/26/17 23:59 23:59 22:59 Intake Total 720 / 720 480 / 480 240 / 240 Balance 720 / 720 480 / 480 240 / 240 Medical Necessity - Tobacco Use Smoking Status: Current every day smoker Tobacco Use: Non-smoker, Chew - Tobacco, - - dips snuff Assessment/Plan All Active Problems (Last Reviewed 12/12/17 @ 21:51 by Jerad Tyler MD) Nondisplaced fracture of neck of left femur (Acute) Multiple falls (Acute) Compression fx, thoracic spine (Acute) This is a 57 years old male patient admitted to rehabilitation unit after he suffered impacted nondisplaced left femoral neck fracture status post left total hip replacement. #1 acute mechanical impacted nondisplaced left femoral neck fracture: Status post left hip replacement. He is on Tylenol and OxyIR as needed for pain. His pain is well controlled. Vital signs are stable. He is doing well physical therapy. Plan to continue PT OT according to rehab team, probably DC home tomorrow. #2 Parkinson's disease: Currently not on medications. Stable. #3 seizure disorder: Stable, continue with Depakote and phenytoin. #4 hypothyroidism: Stable, continue levothyroxine. #5 hyperlipidemia: Continue statins. #6 benign prostatic hypertrophy: Continue Flomax. #7 DVT prophylaxis: Subcu Lovenox. This note was generated with [employer] dictation software. It may contain incorrect words, spelling, and punctuation that were not noted in checking the note before signing. Code Visit Inpatient E&M: 10307 Subs Hosp L2
[2017-12-26] MEDS: Atorvastatin Calcium 40 MG Tablet PO (20:00)
[2017-12-26] MEDS: Divalproex Sodium 250 MG Tablet 500 MG PO (20:00)
[2017-12-26] MEDS: Mirtazapine 15 MG Tablet PO (20:00)
[2017-12-26 20:02] VITALS: BP 111/89; PULSE 93; RESP 16; TEMP 36.8; O2SAT 97
--- NOTE | 2017-12-27 01:13 | NURSING ---
Reviewed and agree with REGISTERED DENTAL ASSISTANT RDA documentation and FIMs charting.
[2017-12-27 01:46] LABS: Bedside Glucose 133 mg/dL (70-110)
--- NOTE | 2017-12-27 02:08 | NURSING ---
Pt heard moaning and CAREER DEVELOPMENT CONSULTANT found pt having a mild seizure. Pt VS were BP 148/89, Hr 100, sPo2 95% ON ROOM AIR, 22 resp. XL=065. Pt was nonractive to voice during seizure and then became responsive. A/O x3.
--- NOTE | 2017-12-27 02:15 | PCM.PN.BLA ---
Progress Note Nurse reported that patient with a known history of epilepsy on Dilantin and Valproic acid had a seizure activity. Dalantin level and valproic acid ordered. Seizure precautions already in place. Keppra 30mg/kg bolus x 1; and Keppra 20mg/kg at 10am until Neurologist see patient. Ativan prn every 10 minutes and to notify MD after each administration.
[2017-12-27] MEDS: levETIRAcetam IV 1,000 MG/100 ML BAG 400 MG IV ×2 (02:33→02:47)
[2017-12-27 02:35] LABS: Hematocrit 33.5 % (40-54); Hemoglobin 11.3 g/dl (13.0-16.5); Mean Corp Hgb Conc 33.7 g/gl (32-36); Mean Platelet Vol. 8.5 fl (6.2-12.0); Platelet Count 479 K/mm3 (150-450); RBC Distribution Width CV 15.1 % (11.6-14.6); Red Blood Count 3.64 M/mm3 (4.6-6.2); White Blood Count 14.6 K/mm3 (4.4-11.0)
--- NOTE | 2017-12-27 02:35 | NURSING ---
Supervisor [employer], Alis, alerted of pt seixure event. Pt stabilized and neuro check was stable. Pt fatigued. Hospitalist paged at 01:50 and returned page at 01:55. Dr. Mars placed N/O for Ativan/PRN for ACTIVE SEIZURE activity. IV access acquired and N/O for Keppra 1,000mg immediate dose and Dr Mars put this order in.
[2017-12-27 02:38] LABS: Scan Indicated on CBC? Y/N NO
[2017-12-27 02:50] LABS: Anion Gap 9 (5-15); BUN 7 mg/dL (7-18); BUN/Creat Ratio 11.4 RATIO (10-20); Calcium,Total 8.6 mg/dL (8.5-10.1); Chloride 91 mmol/L (98-107); Creatinine, Serum 0.62 mg/dL (0.70-1.30); EST Glomerular Filtration Rate 143 mL/min (>60); Est Glom Filt Rate - Afr Amer 173 mL/min (>60); Estimated Creatinine Clearance 127.18 ml/min; Glucose 116 mg/dL (74-106); Potassium 3.4 mmol/L (3.5-5.1); Sodium Level 127 mmol/L (136-145)
--- NOTE | 2017-12-27 02:50 | NURSING ---
Dr. Mars called rehab floor back to modify IV Keppra order. IV 1,000mg increased to 2,000mg given now. Keppra will be given at 10:00. Dr. Mars put in lab orders to check Dilantin level, Valproic Acid Level, and BMP STAT. Pt calm, relaxed, and eyes closed. Will continue to monitor.
[2017-12-27 03:43] LABS: Phenytoin (Dilantin) Level 3.3 mL (10.0-20.0); Valproic Acid (Depakene) Level 26 ug/mL (50-100)
--- NOTE | 2017-12-27 03:48 | NURSING ---
Cinthya, parquet floor layer's helper was notified re:seizure activity of pt. Dr. Solano answering service called and N/O for Depakote 500 mg QHS/adelaida dose changed to Depakote 500 mg TID with first dose to be administered now.
[2017-12-27] MEDS: Divalproex Sodium 250 MG Tablet 500 MG PO ×2 (03:57→23:37)
[2017-12-27] MEDS: oxyCODONE 5 MG Tablet PO ×3 (06:29→23:35)
[2017-12-27] MEDS: Levothyroxine 50 MCG Tablet PO (06:30)
[2017-12-27] MEDS: Acetaminophen 500 MG Tablet 1000 MG PO ×3 (06:30→23:37)
[2017-12-27 08:46] VITALS: BP 114/53; PULSE 83; RESP 16; TEMP 37.1; O2SAT 99
[2017-12-27] MEDS: Tamsulosin HCl 0.4 MG Capsule PO (08:49)
[2017-12-27] MEDS: Phenytoin Na 100 MG Capsule 300 MG PO (08:49)
[2017-12-27] MEDS: Lidocaine 5% Patch 1 PATCH TOPICAL (10:17)
[2017-12-27] MEDS: Enoxaparin 80 MG/0.8 ML Syringe 70 MG SC ×2 (10:17→17:04)
--- NOTE | 2017-12-27 10:20 | CASEMGMT ---
Team meeting held. Patient present as well as patient nanny caregiver. Patient with discharge date set for 12/31/17. Team unsure of recommendation, either home with home health services or SNF as patient as not been doing as well over the past few days in therapy/with nursing. This social work instructor to follow up with team mid week to determine recommendations. Patient and patient nanny caregiver open to whatever the team is recommending at this time. This social work instructor to also meet with patient and patient nanny caregiver to complete POA paperwork on 12/30/17 @ 4:00pm. Will follow up with patient on further discharge planning as recommendation is obtained. Support given. Will continue to follow. Nia Carrillo, INCIDENT HANDLER, ON CALL PHARMACY TECHNICIAN
--- NOTE | 2017-12-27 11:06 | PCM.PN.NEU ---
Subjective: Staffed in team meeting. Caregiver at bedside, questions answered. With Physical therapy, he is able to walk 110 feet with walker. he is moderate assist for getting in and out of bed. He is stand by assist for coming to a stand from a sitting position. He is moving into a new home per the caregiver that has 1 step to get into the home, will work on going up a step and a ramp. With Occupational therapy, he is able to do all his own grooming and for bathing he requires help with bathing his lower body he is using a long handle sponge to do his feet, but still requires minimal assistance for both lower and upper body bathing. With nursing he had a seizure last night, was given a Keppra loading dose, and his Depakote dose was increased. He was on Dilantin and Depakote, will d/c the Dilantin add on Keppra 500mg BID, and take his Depakote dose back to 500mg mg BID. He has a DVT in his surgical leg, was started on Lovenox therapeutic, will change to Xarelto at discharge. - Physical Exam General: Alert, Oriented x3, Cooperative HEENT: Atraumatic, PERRLA, EOMI, Normocephalic Neck: Supple, No JVD, Negative Carotid Bruits Lungs: Clear to auscultation, Normal air movement Cardiovascular: Regular rate, No murmurs Abdomen: Bowel Sounds Present, Soft, Non Tender Extremities: No edema, Capillary Refill Less than 3 Seconds Skin: No rashes, No breakdown Musculoskeletal: No Tenderness to Palpation of Joints or Extremities Neurological: Cranial nerves II-XII grossly intact Psych/Mental Status: Normal Affect, Appropriate, Alert and oriented to time, place, person, mood and affect Vital Signs Temp Pulse Resp BP Pulse Ox 98.8 F 83 16 114/53 L 99 12/27/17 08:46 12/27/17 08:46 12/27/17 08:46 12/27/17 08:46 12/27/17 08:46 Oxygen Delivery Method Room Air Weight: 68.5 kg Body Mass Index (BMI) 23.6 Intake and Output for Last 24 Hours 12/26/17 12/26/17 12/27/17 00:59 23:59 23:59 Intake Total Balance Laboratory Tests Past 24 Hrs 12/27/17 12/27/17 12/27/17 02:30 02:30 02:55 WBC 14.6 H RBC 3.64 L Hgb 11.3 L Hct 33.5 L MCV 92.0 MCH 31.0 MCHC 33.7 RDW 15.1 H RDW Differential 49.0 H Plt Count 479 H MPV 8.5 Sodium 127 L Potassium 3.4 L Chloride 91 L Carbon Dioxide 27.0 Anion Gap 9 BUN 7 Creatinine 0.62 L Estim Creat Clear Calc 127.18 Est GFR (MDRD) Af Amer 173 Est GFR (MDRD) Non-Af 143 BUN/Creatinine Ratio 11.4 Glucose 116 H Calcium 8.6 Phenytoin 3.3 L Valproic Acid 26 L POC Glucose 12/27/17 01:40 POC Glucose 133 H Active Medications Acetaminophen (Tylenol) 1,000 mg PO Q8 [facility] Last Admin: 12/27/17 06:30 Dose: 1,000 mg Atorvastatin Calcium (Lipitor) 40 mg PO QHS [facility] Last Admin: 12/26/17 20:00 Dose: 40 mg Bisacodyl (Dulcolax) 10 mg RECTAL .PRN X 1 PRN PRN Reason: Constipation Divalproex Sodium (Depakote) 500 mg PO BID [facility] Enoxaparin Sodium (Lovenox) 70 mg SC Q12@0600,1800 [facility] Last Admin: 12/27/17 10:17 Dose: 70 mg Ergocalciferol (Vitamin D) 50,000 unit PO Q7D [facility] Last Admin: 12/23/17 08:01 Dose: 50,000 unit Levetiracetam (Keppra Tablet) 500 mg PO BID [facility] Levothyroxine Sodium (Synthroid) 50 mcg PO DAILY@0600 [facility] Last Admin: 12/27/17 06:30 Dose: 50 mcg Lidocaine (Lidoderm Patch) 1 patch TOPICAL DAILY [facility]; Protocol Last Admin: 12/27/17 10:17 Dose: 1 patch Lorazepam (Ativan) 4 mg IV Q10M PRN PRN PRN Reason: SEIZURE Magnesium Hydroxide (Milk Of Magnesia) 30 ml PO .PRN X 1 PRN PRN Reason: Constipation Mirtazapine (Remeron) 15 mg PO QHS [facility] Last Admin: 12/26/17 20:00 Dose: 15 mg Nicotine (Nicoderm Cq (Pbkc)) 21 mg TRANSDERM. DAILY [facility] Last Admin: 12/27/17 08:48 Dose: 21 mg Oxycodone HCl (Oxyir) 5 mg PO Q6H PRN PRN PRN Reason: SEVERE PAIN (-12/01) Last Admin: 12/27/17 08:56 Dose: 5 mg Oxycodone HCl (Oxyir) 5 mg PO DAILY@0600 [facility] Last Admin: 12/27/17 06:29 Dose: 5 mg Senna/Docusate Sodium (Senokot-S, Sri-Colace) 2 tablet PO BID [facility] Last Admin: 12/27/17 08:43 Dose: Not Given Tamsulosin HCl (Flomax) 0.4 mg PO DAILY@0830 [facility] Last Admin: 12/27/17 08:49 Dose: 0.4 mg Medical Necessity - Tobacco Use Smoking Status: Current every day smoker Tobacco Use: Non-smoker, Chew - Tobacco, - - dips snuff Assessment/Plan All Active Problems (Last Reviewed 12/12/17 @ 21:51 by Jerad Tyler MD) Nondisplaced fracture of neck of left femur (Acute) Multiple falls (Acute) Compression fx, thoracic spine (Acute) Debility s/p total left hip replacement, complicated by Parkinson, seizures and compression fractures of the thoracic spine. Goal of rehab is [place] of functional independence. 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 will schedule X-rays for 12/24 in prep for visit. - DVT in Left leg => started on therapeutic Lovenox at 1mg/kg for 70mg BID, at discharge switch to Xarelto 15mg BID x 3 weeks then 20mg Daily - Acute seizure start Keppra 500mg BID, continue Depakote at 500mg BID, d/c Dilantin
--- NOTE | 2017-12-27 11:17 | PN.NEURO_ITS ---
Subjective: Staffed in team meeting. Caregiver at bedside, questions answered. With Physical therapy, he is able to walk 110 feet with walker. he is moderate assist for getting in and out of bed. He is stand by assist for coming to a stand from a sitting position. He is moving into a new home per the caregiver that has 1 step to get into the home, will work on going up a step and a ramp. With Occupational therapy, he is able to do all his own grooming and for bathing he requires help with bathing his lower body he is using a long handle sponge to do his feet, but still requires minimal assistance for both lower and upper body bathing. With nursing he had a seizure last night, was given a Keppra loading dose, and his Depakote dose was increased. He was on Dilantin and Depakote, will d/c the Dilantin add on Keppra 500mg BID, and take his Depakote dose back to 500mg mg BID. He has a DVT in his surgical leg, was started on Lovenox therapeutic, will change to Xarelto at discharge. - Physical Exam General: Alert, Oriented x3, Cooperative HEENT: Atraumatic, PERRLA, EOMI, Normocephalic Neck: Supple, No JVD, Negative Carotid Bruits Lungs: Clear to auscultation, Normal air movement Cardiovascular: Regular rate, No murmurs Abdomen: Bowel Sounds Present, Soft, Non Tender Extremities: No edema, Capillary Refill Less than 3 Seconds Skin: No rashes, No breakdown Musculoskeletal: No Tenderness to Palpation of Joints or Extremities Neurological: Cranial nerves II-XII grossly intact Psych/Mental Status: Normal Affect, Appropriate, Alert and oriented to time, place, person, mood and affect Vital Signs Temp Pulse Resp BP Pulse Ox 98.8 F 83 16 114/53 L 99 12/27/17 08:46 12/27/17 08:46 12/27/17 08:46 12/27/17 08:46 12/27/17 08:46 Oxygen Delivery Method Room Air Weight: 68.5 kg Body Mass Index (BMI) 23.6 Intake and Output for Last 24 Hours 12/26/17 12/26/17 12/27/17 00:59 23:59 23:59 Intake Total Balance Laboratory Tests Past 24 Hrs 12/27/17 12/27/17 12/27/17 02:30 02:30 02:55 WBC 14.6 H RBC 3.64 L Hgb 11.3 L Hct 33.5 L MCV 92.0 MCH 31.0 MCHC 33.7 RDW 15.1 H RDW Differential 49.0 H Plt Count 479 H MPV 8.5 Sodium 127 L Potassium 3.4 L Chloride 91 L Carbon Dioxide 27.0 Anion Gap 9 BUN 7 Creatinine 0.62 L Estim Creat Clear Calc 127.18 Est GFR (MDRD) Af Amer 173 Est GFR (MDRD) Non-Af 143 BUN/Creatinine Ratio 11.4 Glucose 116 H Calcium 8.6 Phenytoin 3.3 L Valproic Acid 26 L POC Glucose 12/27/17 01:40 POC Glucose 133 H Active Medications Acetaminophen (Tylenol) 1,000 mg PO Q8 [facility] Last Admin: 12/27/17 06:30 Dose: 1,000 mg Atorvastatin Calcium (Lipitor) 40 mg PO QHS [facility] Last Admin: 12/26/17 20:00 Dose: 40 mg Bisacodyl (Dulcolax) 10 mg RECTAL .PRN X 1 PRN PRN Reason: Constipation Divalproex Sodium (Depakote) 500 mg PO BID [facility] Enoxaparin Sodium (Lovenox) 70 mg SC Q12@0600,1800 [facility] Last Admin: 12/27/17 10:17 Dose: 70 mg Ergocalciferol (Vitamin D) 50,000 unit PO Q7D [facility] Last Admin: 12/23/17 08:01 Dose: 50,000 unit Levetiracetam (Keppra Tablet) 500 mg PO BID [facility] Levothyroxine Sodium (Synthroid) 50 mcg PO DAILY@0600 [facility] Last Admin: 12/27/17 06:30 Dose: 50 mcg Lidocaine (Lidoderm Patch) 1 patch TOPICAL DAILY [facility]; Protocol Last Admin: 12/27/17 10:17 Dose: 1 patch Lorazepam (Ativan) 4 mg IV Q10M PRN PRN PRN Reason: SEIZURE Magnesium Hydroxide (Milk Of Magnesia) 30 ml PO .PRN X 1 PRN PRN Reason: Constipation Mirtazapine (Remeron) 15 mg PO QHS [facility] Last Admin: 12/26/17 20:00 Dose: 15 mg Nicotine (Nicoderm Cq (Pbkc)) 21 mg TRANSDERM. DAILY [facility] Last Admin: 12/27/17 08:48 Dose: 21 mg Oxycodone HCl (Oxyir) 5 mg PO Q6H PRN PRN PRN Reason: SEVERE PAIN (-12/01) Last Admin: 12/27/17 08:56 Dose: 5 mg Oxycodone HCl (Oxyir) 5 mg PO DAILY@0600 [facility] Last Admin: 12/27/17 06:29 Dose: 5 mg Senna/Docusate Sodium (Senokot-S, Sri-Colace) 2 tablet PO BID [facility] Last Admin: 12/27/17 08:43 Dose: Not Given Tamsulosin HCl (Flomax) 0.4 mg PO DAILY@0830 [facility] Last Admin: 12/27/17 08:49 Dose: 0.4 mg Medical Necessity - Tobacco Use Smoking Status: Current every day smoker Tobacco Use: Non-smoker, Chew - Tobacco, - - dips snuff Assessment/Plan All Active Problems (Last Reviewed 12/12/17 @ 21:51 by Jerad Tyler MD) Nondisplaced fracture of neck of left femur (Acute) Multiple falls (Acute) Compression fx, thoracic spine (Acute) Debility s/p total left hip replacement, complicated by Parkinson, seizures and compression fractures of the thoracic spine. Goal of rehab is congregational of functional independence. 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 will schedule X-rays for 12/24 in prep for visit. - DVT in Left leg => started on therapeutic Lovenox at 1mg/kg for 70mg BID, at discharge switch to Xarelto 15mg BID x 3 weeks then 20mg Daily - Acute seizure start Keppra 500mg BID, continue Depakote at 500mg BID, d/c Dilantin
--- NOTE | 2017-12-27 16:59 | PN_ITS ---
Subjective: Patient is a 57-year-old male admitted to the inpatient rehab unit following left hip replacement on account of fall with acute mechanical impacted nondisplaced left femoral neck fracture Objective: GENERAL: cooperative HEENT: Atraumatic; moist oral mucosa EYES; Anicteric, Normal Conjunctiva NECK; supple, normal thyroid, no distended JVD. RESPIRATORY: Diminished to auscultation bilaterally, CARDIOVASCULAR: Regular S1 S2, no audible murmurs GI: soft, non-tender, normoactive bowel sounds, : No Renal angle tenderness; EXTREMITIES: No edema, no clubbing, no cyanosis. NEURO: Awake; no lateralizing signs. SKIN: No Rash PSYCH; Normal affect Vitals/I&O's: Vital Signs Temp Pulse Resp BP Pulse Ox 98.8 F 83 16 114/53 L 99 12/27/17 08:46 12/27/17 08:46 12/27/17 08:46 12/27/17 08:46 12/27/17 08:46 Oxygen Delivery Method Room Air Weight: 68.5 kg Body Mass Index (BMI) 23.6 Intake and Output for Last 24 Hours 12/26/17 12/26/17 12/27/17 00:59 23:59 23:59 Intake Total Balance Laboratory Results 12/27/17 01:40: POC Glucose 133 H 12/27/17 02:30: Sodium 127 L, Potassium 3.4 L, Chloride 91 L, Carbon Dioxide 27.0, Anion Gap 9, BUN 7, Creatinine 0.62 L, Estim Creat Clear Calc 127.18, Est GFR (MDRD) Af Amer 173, Est GFR (MDRD) Non-Af 143, BUN/Creatinine Ratio 11.4, Glucose 116 H, Calcium 8.6 12/27/17 02:30: WBC 14.6 H, RBC 3.64 L, Hgb 11.3 L, Hct 33.5 L, MCV 92.0, MCH 31.0, MCHC 33.7, RDW 15.1 H, RDW Differential 49.0 H, Plt Count 479 H, MPV 8.5 12/27/17 02:55: Phenytoin 3.3 L, Valproic Acid 26 L Current Medications Acetaminophen (Tylenol) 1,000 mg PO Q8 [facility] Last Admin: 12/27/17 13:49 Dose: 1,000 mg Atorvastatin Calcium (Lipitor) 40 mg PO QHS [facility] Last Admin: 12/26/17 20:00 Dose: 40 mg Bisacodyl (Dulcolax) 10 mg RECTAL .PRN X 1 PRN PRN Reason: Constipation Divalproex Sodium (Depakote) 500 mg PO BID [facility] Enoxaparin Sodium (Lovenox) 70 mg SC Q12@0600,1800 [facility] Last Admin: 12/27/17 10:17 Dose: 70 mg Ergocalciferol (Vitamin D) 50,000 unit PO Q7D [facility] Last Admin: 12/23/17 08:01 Dose: 50,000 unit Levetiracetam (Keppra Tablet) 500 mg PO BID [facility] Levothyroxine Sodium (Synthroid) 50 mcg PO DAILY@0600 [facility] Last Admin: 12/27/17 06:30 Dose: 50 mcg Lidocaine (Lidoderm Patch) 1 patch TOPICAL DAILY [facility]; Protocol Last Admin: 12/27/17 10:17 Dose: 1 patch Lorazepam (Ativan) 4 mg IV Q10M PRN PRN PRN Reason: SEIZURE Magnesium Hydroxide (Milk Of Magnesia) 30 ml PO .PRN X 1 PRN PRN Reason: Constipation Mirtazapine (Remeron) 15 mg PO QHS [facility] Last Admin: 12/26/17 20:00 Dose: 15 mg Nicotine (Nicoderm Cq (Pbkc)) 21 mg TRANSDERM. DAILY [facility] Last Admin: 12/27/17 08:48 Dose: 21 mg Oxycodone HCl (Oxyir) 5 mg PO Q6H PRN PRN PRN Reason: SEVERE PAIN (6-10/10) Last Admin: 12/27/17 08:56 Dose: 5 mg Oxycodone HCl (Oxyir) 5 mg PO DAILY@0600 [facility] Last Admin: 12/27/17 06:29 Dose: 5 mg Senna/Docusate Sodium (Senokot-S, Sri-Colace) 2 tablet PO BID [facility] Last Admin: 12/27/17 08:43 Dose: Not Given Tamsulosin HCl (Flomax) 0.4 mg PO DAILY@0830 [facility] Last Admin: 12/27/17 08:49 Dose: 0.4 mg Medical Necessity - Tobacco Use Smoking Status: Current every day smoker Tobacco Use: Non-smoker, Chew - Tobacco, - - dips snuff Assessment/Plan All Active Problems (Last Reviewed 12/12/17 @ 21:51 by Jerad Tyler MD) Nondisplaced fracture of neck of left femur (Acute) Multiple falls (Acute) Compression fx, thoracic spine (Acute) Patient is a 57-year-old male admitted to the inpatient rehab unit following left hip replacement on account of fall with acute mechanical impacted nondisplaced left femoral neck fracture 1. Acute mechanical impacted nondisplaced left femoral neck fracture patient underwent left hip replacement subsequently admitted to the inpatient rehab unit where she is undergoing therapy 2. Seizure disorder with breakthrough seizure on the morning of 12/27/2017. Keppra was added to patient's therapy; he was on Dilantin this was discontinued he however remains on Depakote 3. Parkinson's disease 4. Hypothyroidism-patient is on levothyroxine home dose continued 5. Dyslipidemia 6. BPH 7. DVT prophylaxis SC Lovenox Active Medications Acetaminophen (Tylenol) 1,000 mg PO Q8 [facility] Last Admin: 12/28/17 12:50 Dose: 1,000 mg Atorvastatin Calcium (Lipitor) 40 mg PO QHS [facility] Last Admin: 12/27/17 23:38 Dose: 40 mg Bisacodyl (Dulcolax) 10 mg RECTAL .PRN X 1 PRN PRN Reason: Constipation Ciprofloxacin HCl (Cipro) 500 mg PO DAILY [facility] Stop: 01/03/18 10:01 Last Admin: 12/28/17 12:50 Dose: 500 mg Divalproex Sodium (Depakote) 500 mg PO BID [facility] Last Admin: 12/28/17 08:03 Dose: 500 mg Enoxaparin Sodium (Lovenox) 70 mg SC Q12@0600,1800 [facility] Last Admin: 12/28/17 06:49 Dose: 70 mg Ergocalciferol (Vitamin D) 50,000 unit PO Q7D [facility] Last Admin: 12/23/17 08:01 Dose: 50,000 unit Levetiracetam (Keppra Tablet) 500 mg PO BID [facility] Last Admin: 12/28/17 10:43 Dose: 500 mg Levothyroxine Sodium (Synthroid) 50 mcg PO DAILY@0600 [facility] Last Admin: 12/28/17 06:48 Dose: 50 mcg Lidocaine (Lidoderm Patch) 1 patch TOPICAL DAILY [facility]; Protocol Last Admin: 12/28/17 10:43 Dose: 1 patch Lorazepam (Ativan) 4 mg IV Q10M PRN PRN PRN Reason: SEIZURE Magnesium Hydroxide (Milk Of Magnesia) 30 ml PO .PRN X 1 PRN PRN Reason: Constipation Mirtazapine (Remeron) 15 mg PO QHS [facility] Last Admin: 12/27/17 23:38 Dose: 15 mg Nicotine (Nicoderm Cq (Pbkc)) 21 mg TRANSDERM. DAILY [facility] Last Admin: 12/28/17 08:04 Dose: 21 mg Oxycodone HCl (Oxyir) 5 mg PO Q6H PRN PRN PRN Reason: SEVERE PAIN (6-12/01) Last Admin: 12/28/17 13:28 Dose: 5 mg Oxycodone HCl (Oxyir) 5 mg PO DAILY@0600 [facility] Last Admin: 12/28/17 06:48 Dose: 5 mg Senna/Docusate Sodium (Senokot-S, Sri-Colace) 2 tablet PO BID [facility] Last Admin: 12/28/17 08:07 Dose: Not Given Tamsulosin HCl (Flomax) 0.4 mg PO DAILY@0830 [facility] Last Admin: 12/28/17 08:04 Dose: 0.4 mg Code Visit Inpatient E&M: [id number] [facility] Hosp L2
[2017-12-27 17:20] VITALS: BP 119/73; PULSE 73; RESP 18; TEMP 36.7; O2SAT 92
--- NOTE | 2017-12-27 17:20 | NURSING ---
This nurse had been in around 1700 to give patient medication that was due and at 1715 heard patient yelling from room and upon entering found patient face first onto floor laying by bed onto right side. Patient had moderate red drainage coming from right eyebrow and dressing applied to stop bleeding. Skn tear observed. Patient reported he was getting up. This nurse reoriented patient to using call morillo and he said, I know. Patient assisted self to roll over onto back and c/o back hurting but that was already a complaint this morning after his seizure activity. Patient also c/o left leg hurting and this is his surgical leg. Patient not moved from floor, pillows have been provided for head support. Dr. Yaneth jesus per joy operator. [place]. Alert and oriented x3 at this time. VS WNL.
--- NOTE | 2017-12-27 17:45 | NURSING ---
Dr. Christensen aware of incident and patient still remains on the floor due to c/o pain with movement to back and left hip. Pillow still under head for support. Patient denies pain anywhere else. Garden Worker aware. New orders received. Staff with slide board here for help to transport patient without movement to bed.
--- NOTE | 2017-12-27 17:58 | CT_ITS ---
STUDY: CT BRAIN WITHOUT CONTRAST REASON FOR EXAM: Male, 57 years old. Face first fall. Patient on Lovenox. 2 Parkinson's disease. RADIATION DOSAGE (If Supplied By Facility): CTDIvol = ( 44.99 ) mGy, DLP = ( 796.11 ) mGycm TECHNIQUE: Transaxial CT imaging of the brain was performed without administration of intravenous contrast material. Individualized dose optimization techniques were used for this CT. COMPARISON: December 01, 2017. FINDINGS: Normal soft tissue structures. Normal calvarium. There is deformity of the nasal bones which is a chronic abnormality. There is mild cerebral atrophy with widening of the extra-axial spaces and ventricular dilatation. There are areas of decreased attenuation within the white matter tracts of the supratentorial brain, consistent with microvascular disease changes. Normal basal ganglia and thalami. Normal brainstem. There is mild cerebellar atrophy. There is no intracranial hemorrhage. There are no findings of an acute ischemic infarction. Normal visualized paranasal sinuses. CT/Brain/Head without Contrast IMPRESSION: Chronic involutional changes without evidence of acute intracranial or calvarial abnormality. There is no major interval change. Electronically Signed: Mazin Martin DO at 18:19 EST Tel [phone], Service support ,
--- NOTE | 2017-12-27 18:15 | RAD_ITS ---
STUDY: X-RAY - PELVIS AND LEFT HIP REASON FOR EXAM: Male, 57 years old. Fall. Rotation of the lower extremity. History of hip replacement a few weeks ago. TECHNIQUE: Radiological exam, hip, unilateral, with pelvis when performed; 2 or 3 views. COMPARISON: Left hip, December 13, 2017. FINDINGS: There is a non-specific bowel gas pattern. Normal visualized soft tissue structures. There are multiple calcified phleboliths. Normal bilateral iliac wings, sacroiliac joints and visualized sacrum. Normal bilateral superior and inferior pubic rami. Normal pubic symphysis. Normal bilateral ischial tuberosities. There is a stable right hip replacement. There is a left total hip arthroplasty. There is no loosening of the surrounding bone. There is no evidence of osseous fracture. The soft tissue air and overlying skin clips are no longer present. Normal hip joint. RAD/HIP, UNI W/ Pelvis 2-3 Views IMPRESSION: 1. Left artificial hip without evidence of acute abnormality or interval change. 2. No changes out of the pelvis and right hip. Electronically Signed: Mazin Martin DO at 18:31 EST Tel [phone], Service support ,
--- NOTE | 2017-12-27 18:30 | NURSING ---
Patient returned to floor in bed with FORESTRY CONSERVATION WORKER from having tests done, PA attached, patient instructed personnel placement specialist morillo use again and he verbalized understanding.
[2017-12-27 18:37] LABS: Bacteria 0 SEEN /hpf (None Seen); Mucous, Urine 0 SEEN /hpf (<or=2+); Red Blood Cells-Urine 0 SEEN /hpf (0-5); Squamous Epithelial Cells - UA 0 SEEN /hpf (0-5)
[2017-12-27 18:44] LABS: Color, Urine Yellow (Yellow); Glucose, Dipstick Normal (Normal); Ketone-Dipstick 5 mg/dl (Negative); Leukocyte Esterase-Dipstick 25 /ul (Negative); Nitrite-Dipstick Positive (Negative); Occult Blood-Urine Negative /ul (Negative); Protein-Dipstick Negative (Negative); Specific Gravity, Urine 1.005 (1.002-1.030); Urine Bilirubin Dipstick Negative (Negative); Urine Clarity Clear (Clear); Urine Urobilinogen Normal (Normal)
--- NOTE | 2017-12-27 19:19 | NURSING ---
Caregiver Mary notified of incident and Cinthya Pathak, munitions handler.
[2017-12-27 19:54] LABS: White Blood Cells 0-5 SEEN /hpf (0-5)
[2017-12-27 23:00] VITALS: BP 103/72; PULSE 98; RESP 20; TEMP 37; O2SAT 95
[2017-12-27] MEDS: Mirtazapine 15 MG Tablet PO (23:38)
[2017-12-27] MEDS: Atorvastatin Calcium 40 MG Tablet PO (23:38)
[2017-12-27] MEDS: levETIRAcetam 500 MG Tablet PO (23:38)
--- NOTE | 2017-12-28 04:29 | NURSING ---
Reviewed and agree with CONCRETE [employer]IXER documentation and FIMs charting.
[2017-12-28] MEDS: Levothyroxine 50 MCG Tablet PO (06:48)
[2017-12-28] MEDS: oxyCODONE 5 MG Tablet PO ×2 (06:48→13:28)
[2017-12-28] MEDS: Acetaminophen 500 MG Tablet 1000 MG PO ×3 (06:48→22:19)
[2017-12-28] MEDS: Enoxaparin 80 MG/0.8 ML Syringe 70 MG SC ×2 (06:49→18:30)
[2017-12-28] MEDS: Divalproex Sodium 250 MG Tablet 500 MG PO ×2 (08:03→22:21)
[2017-12-28] MEDS: Tamsulosin HCl 0.4 MG Capsule PO (08:04)
[2017-12-28 10:00] VITALS: BP 91/70; PULSE 107; RESP 18; TEMP 37.3; O2SAT 95
[2017-12-28] MEDS: levETIRAcetam 500 MG Tablet PO ×2 (10:43→22:21)
[2017-12-28] MEDS: Lidocaine 5% Patch 1 PATCH TOPICAL (10:43)
--- NOTE | 2017-12-28 11:18 | PCM.PN.NEU ---
Subjective: Patient seen and examined. Patient found on floor at the end of shift last night. CT Head negative for acute hemorrhage, X-ray of Pelvis and hip negative for acute abnormality or fractures. Still having a great deal of back pain which is chronic, has lidocaine patch and K-pack when not in therapy. Tolerating therapy, was able to walk about 15 feet with a walker. - Physical Exam General: Alert, Oriented x3, Cooperative HEENT: Atraumatic, PERRLA, EOMI, Normocephalic Neck: Supple, No JVD, Negative Carotid Bruits Lungs: Clear to auscultation, Normal air movement Cardiovascular: Regular rate, No murmurs Abdomen: Bowel Sounds Present, Soft, Non Tender Extremities: No edema, Capillary Refill Less than 3 Seconds Skin: No rashes, No breakdown Musculoskeletal: No Tenderness to Palpation of Joints or Extremities Neurological: Cranial nerves II-XII grossly intact Psych/Mental Status: Normal Affect, Appropriate, Alert and oriented to time, place, person, mood and affect Vital Signs Temp Pulse Resp BP Pulse Ox 98.6 F 98 20 H 103/72 95 12/27/17 23:00 12/27/17 23:00 12/27/17 23:00 12/27/17 23:00 12/27/17 23:00 Oxygen Delivery Method Room Air Weight: 68.5 kg Body Mass Index (BMI) 23.6 Intake and Output for Last 24 Hours 12/26/17 12/27/17 12/28/17 23:59 23:59 23:59 Intake Total 240 / 240 Balance 240 / 240 Laboratory Tests Past 24 Hrs 12/27/17 15:00 Urine Color Yellow Urine Clarity Clear Urine pH 7.0 Ur Specific [place] 1.005 Urine Protein Negative Urine Glucose (UA) Normal Urine Ketones 5 H Urine Occult Blood Negative Urine Nitrite Positive H Urine Bilirubin Negative Urine Urobilinogen Normal Ur Leukocyte Esterase 25 H Urine RBC 0 SEEN Urine WBC 0-5 SEEN Ur Squamous Epith Cells 0 SEEN Urine Bacteria 0 SEEN Urine Mucus 0 SEEN Active Medications Acetaminophen (Tylenol) 1,000 mg PO Q8 [facility] Last Admin: 12/28/17 06:48 Dose: 1,000 mg Atorvastatin Calcium (Lipitor) 40 mg PO QHS [facility] Last Admin: 12/27/17 23:38 Dose: 40 mg Bisacodyl (Dulcolax) 10 mg RECTAL .PRN X 1 PRN PRN Reason: Constipation Divalproex Sodium (Depakote) 500 mg PO BID [facility] Last Admin: 12/28/17 08:03 Dose: 500 mg Enoxaparin Sodium (Lovenox) 70 mg SC Q12@0600,1800 [facility] Last Admin: 12/28/17 06:49 Dose: 70 mg Ergocalciferol (Vitamin D) 50,000 unit PO Q7D [facility] Last Admin: 12/23/17 08:01 Dose: 50,000 unit Levetiracetam (Keppra Tablet) 500 mg PO BID [facility] Last Admin: 12/28/17 10:43 Dose: 500 mg Levothyroxine Sodium (Synthroid) 50 mcg PO DAILY@0600 [facility] Last Admin: 12/28/17 06:48 Dose: 50 mcg Lidocaine (Lidoderm Patch) 1 patch TOPICAL DAILY [facility]; Protocol Last Admin: 12/28/17 10:43 Dose: 1 patch Lorazepam (Ativan) 4 mg IV Q10M PRN PRN PRN Reason: SEIZURE Magnesium Hydroxide (Milk Of Magnesia) 30 ml PO .PRN X 1 PRN PRN Reason: Constipation Mirtazapine (Remeron) 15 mg PO QHS [facility] Last Admin: 12/27/17 23:38 Dose: 15 mg Nicotine (Nicoderm Cq (Pbkc)) 21 mg TRANSDERM. DAILY [facility] Last Admin: 12/28/17 08:04 Dose: 21 mg Oxycodone HCl (Oxyir) 5 mg PO Q6H PRN PRN PRN Reason: SEVERE PAIN (6-10/10) Last Admin: 12/27/17 23:35 Dose: 5 mg Oxycodone HCl (Oxyir) 5 mg PO DAILY@0600 [facility] Last Admin: 12/28/17 06:48 Dose: 5 mg Senna/Docusate Sodium (Senokot-S, Sri-Colace) 2 tablet PO BID [facility] Last Admin: 12/28/17 08:07 Dose: Not Given Tamsulosin HCl (Flomax) 0.4 mg PO DAILY@0830 [facility] Last Admin: 12/28/17 08:04 Dose: 0.4 mg Medical Necessity - Tobacco Use Smoking Status: Current every day smoker Tobacco Use: Non-smoker, Chew - Tobacco, - - dips snuff Assessment/Plan All Active Problems (Last Reviewed 12/12/17 @ 21:51 by Jerad Tyler MD) Nondisplaced fracture of neck of left femur (Acute) Multiple falls (Acute) Compression fx, thoracic spine (Acute) Debility s/p total left hip replacement, complicated by Parkinson, seizures and compression fractures of the thoracic spine. Goal of rehab is jain of functional independence. 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 will schedule X-rays for 12/24 in prep for visit. - DVT in Left leg => started on therapeutic Lovenox at 1mg/kg for 70mg BID, at discharge switch to Xarelto 15mg BID x 3 weeks then 20mg Daily - Acute seizure start Keppra 500mg BID, continue Depakote at 500mg BID, d/c Dilantin - Un-witness fall => CTH negative for Acute Hemorrhagia, Xray of Pelvis and hip negative for fracture or dislocation
--- NOTE | 2017-12-28 11:26 | PN.NEURO_ITS ---
Subjective: Patient seen and examined. Patient found on floor at the end of shift last night. CT Head negative for acute hemorrhage, X-ray of Pelvis and hip negative for acute abnormality or fractures. Still having a great deal of back pain which is chronic, has lidocaine patch and K-pack when not in therapy. Tolerating therapy, was able to walk about 15 feet with a walker. - Physical Exam General: Alert, Oriented x3, Cooperative HEENT: Atraumatic, PERRLA, EOMI, Normocephalic Neck: Supple, No JVD, Negative Carotid Bruits Lungs: Clear to auscultation, Normal air movement Cardiovascular: Regular rate, No murmurs Abdomen: Bowel Sounds Present, Soft, Non Tender Extremities: No edema, Capillary Refill Less than 3 Seconds Skin: No rashes, No breakdown Musculoskeletal: No Tenderness to Palpation of Joints or Extremities Neurological: Cranial nerves II-XII grossly intact Psych/Mental Status: Normal Affect, Appropriate, Alert and oriented to time, place, person, mood and affect Vital Signs Temp Pulse Resp BP Pulse Ox 98.6 F 98 20 H 103/72 95 12/27/17 23:00 12/27/17 23:00 12/27/17 23:00 12/27/17 23:00 12/27/17 23:00 Oxygen Delivery Method Room Air Weight: 68.5 kg Body Mass Index (BMI) 23.6 Intake and Output for Last 24 Hours 12/26/17 12/27/17 12/28/17 23:59 23:59 23:59 Intake Total 240 / 240 Balance 240 / 240 Laboratory Tests Past 24 Hrs 12/27/17 15:00 Urine Color Yellow Urine Clarity Clear Urine pH 7.0 Ur Specific [place] 1.005 Urine Protein Negative Urine Glucose (UA) Normal Urine Ketones 5 H Urine Occult Blood Negative Urine Nitrite Positive H Urine Bilirubin Negative Urine Urobilinogen Normal Ur Leukocyte Esterase 25 H Urine RBC 0 SEEN Urine WBC 0-5 SEEN Ur Squamous Epith Cells 0 SEEN Urine Bacteria 0 SEEN Urine Mucus 0 SEEN Active Medications Acetaminophen (Tylenol) 1,000 mg PO Q8 [facility] Last Admin: 12/28/17 06:48 Dose: 1,000 mg Atorvastatin Calcium (Lipitor) 40 mg PO QHS [facility] Last Admin: 12/27/17 23:38 Dose: 40 mg Bisacodyl (Dulcolax) 10 mg RECTAL .PRN X 1 PRN PRN Reason: Constipation Divalproex Sodium (Depakote) 500 mg PO BID [facility] Last Admin: 12/28/17 08:03 Dose: 500 mg Enoxaparin Sodium (Lovenox) 70 mg SC Q12@0600,1800 [facility] Last Admin: 12/28/17 06:49 Dose: 70 mg Ergocalciferol (Vitamin D) 50,000 unit PO Q7D [facility] Last Admin: 12/23/17 08:01 Dose: 50,000 unit Levetiracetam (Keppra Tablet) 500 mg PO BID [facility] Last Admin: 12/28/17 10:43 Dose: 500 mg Levothyroxine Sodium (Synthroid) 50 mcg PO DAILY@0600 [facility] Last Admin: 12/28/17 06:48 Dose: 50 mcg Lidocaine (Lidoderm Patch) 1 patch TOPICAL DAILY [facility]; Protocol Last Admin: 12/28/17 10:43 Dose: 1 patch Lorazepam (Ativan) 4 mg IV Q10M PRN PRN PRN Reason: SEIZURE Magnesium Hydroxide (Milk Of Magnesia) 30 ml PO .PRN X 1 PRN PRN Reason: Constipation Mirtazapine (Remeron) 15 mg PO QHS [facility] Last Admin: 12/27/17 23:38 Dose: 15 mg Nicotine (Nicoderm Cq (Pbkc)) 21 mg TRANSDERM. DAILY [facility] Last Admin: 12/28/17 08:04 Dose: 21 mg Oxycodone HCl (Oxyir) 5 mg PO Q6H PRN PRN PRN Reason: SEVERE PAIN (6-10/10) Last Admin: 12/27/17 23:35 Dose: 5 mg Oxycodone HCl (Oxyir) 5 mg PO DAILY@0600 [facility] Last Admin: 12/28/17 06:48 Dose: 5 mg Senna/Docusate Sodium (Senokot-S, Sri-Colace) 2 tablet PO BID [facility] Last Admin: 12/28/17 08:07 Dose: Not Given Tamsulosin HCl (Flomax) 0.4 mg PO DAILY@0830 [facility] Last Admin: 12/28/17 08:04 Dose: 0.4 mg Medical Necessity - Tobacco Use Smoking Status: Current every day smoker Tobacco Use: Non-smoker, Chew - Tobacco, - - dips snuff Assessment/Plan All Active Problems (Last Reviewed 12/12/17 @ 21:51 by Jerad Tyler MD) Nondisplaced fracture of neck of left femur (Acute) Multiple falls (Acute) Compression fx, thoracic spine (Acute) Debility s/p total left hip replacement, complicated by Parkinson, seizures and compression fractures of the thoracic spine. Goal of rehab is religion of functional independence. 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 will schedule X-rays for 12/24 in prep for visit. - DVT in Left leg => started on therapeutic Lovenox at 1mg/kg for 70mg BID, at discharge switch to Xarelto 15mg BID x 3 weeks then 20mg Daily - Acute seizure start Keppra 500mg BID, continue Depakote at 500mg BID, d/c Dilantin - Un-witness fall => CTH negative for Acute Hemorrhagia, Xray of Pelvis and hip negative for fracture or dislocation
[2017-12-28] MEDS: Ciprofloxacin 500 MG Tablet PO (12:50)
[2017-12-28 22:00] VITALS: BP 120/75; PULSE 111; RESP 18; TEMP 37; O2SAT 96
[2017-12-28] MEDS: Atorvastatin Calcium 40 MG Tablet PO (22:19)
[2017-12-28] MEDS: Senna/Docusate Sodium 1 Tablet 2 TABLET PO (22:20)
[2017-12-28] MEDS: Mirtazapine 15 MG Tablet PO (22:21)
--- NOTE | 2017-12-29 01:39 | NURSING ---
Reviewed and agree with DIE HARDENER documentation and FIMs charting.
[2017-12-29] MEDS: Enoxaparin 80 MG/0.8 ML Syringe 70 MG SC ×2 (06:42→17:31)
[2017-12-29] MEDS: oxyCODONE 5 MG Tablet PO ×2 (06:43→10:11)
[2017-12-29] MEDS: Levothyroxine 50 MCG Tablet PO (06:44)
[2017-12-29] MEDS: Acetaminophen 500 MG Tablet 1000 MG PO ×3 (06:44→20:05)
--- NOTE | 2017-12-29 06:54 | NURSING ---
education assistant into the room at 0615 to get pt up for the day and pt refused to do get up, am care or change clothes. pt given am medication with pain medication. pt encouraged and reeducated on the importance of getting up and moving, to keep muscles from getting stiff and pneumonia. with 2 assists pt was transferred to the w/c and taken to get his weight and then to the recliner. ot will work with pt on adls this am.
[2017-12-29 07:31] VITALS: BP 103/80; PULSE 98; RESP 18; TEMP 36.8; O2SAT 95
[2017-12-29] MEDS: Tamsulosin HCl 0.4 MG Capsule PO (08:07)
[2017-12-29] MEDS: Divalproex Sodium 250 MG Tablet 500 MG PO ×2 (08:07→20:04)
[2017-12-29] MEDS: levETIRAcetam 500 MG Tablet PO ×2 (08:10→20:04)
[2017-12-29] MEDS: Senna/Docusate Sodium 1 Tablet 2 TABLET PO (08:10)
[2017-12-29 09:13] LABS: Factor VIII Activity 278 % (57-163)
[2017-12-29] MEDS: Lidocaine 5% Patch 1 PATCH TOPICAL (10:11)
[2017-12-29] MEDS: Ciprofloxacin 500 MG Tablet PO (10:11)
--- NOTE | 2017-12-29 11:22 | RAD_ITS ---
STUDY: X-RAY - LUMBAR SPINE REASON FOR EXAM: Male, 57 years old. Low back pain. Recent hip surgery. TECHNIQUE: 3 view(s) of the lumbar spine were obtained. COMPARISON: Comparison is made with prior examination dated December 11, 2007. FINDINGS: There is straightening of the normal lumbar lordosis. There is no substantial scoliosis. There is a normal alignment of the vertebrae. Stable loss of height of the superior endplate of the T12 vertebrae. Normal disc space heights. The patient is status post bilateral total hip replacement. There is atherosclerotic calcification of the abdominal aorta without a demonstrated aneurysm. RAD/Lumbar Spine 2 or 3 Views IMPRESSION: Loss of the normal lumbar lordosis. Stable minimal loss of right of the superior endplate of the T12 vertebrae. Electronically Signed: Bernard Pettit MD at 13:40 EST Tel [phone], Service support ,
--- NOTE | 2017-12-29 11:56 | PN.NEURO_ITS ---
Subjective: No new complaints. He is tolerating the changes in his medications. - Physical Exam General: Alert, Oriented x3, Cooperative, No apparent distress Neurological: Cranial nerves II-XII grossly intact Psych/Mental Status: Normal Affect Vital Signs Temp Pulse Resp BP Pulse Ox 36.8 C 98 18 103/80 95 12/29/17 07:31 12/29/17 07:31 12/29/17 07:31 12/29/17 07:31 12/29/17 07:31 Oxygen Delivery Method Room Air Weight: 68.5 kg Body Mass Index (BMI) 23.6 Intake and Output for Last 24 Hours 12/27/17 12/28/17 12/29/17 23:59 23:59 23:59 Intake Total 480 / 480 240 / 240 Balance 480 / 480 240 / 240 Laboratory Tests Past 24 Hrs 12/22/17 16:38 Factor VIII Activity 278 H von Willebrand Comment 389 H Factor II DNA Analysis Comment Current Home Med List Medication Instructions Recorded Confirmed Type atorvastatin 40 mg tablet 40 mg PO QHS 12/03/17 12/15/17 History divalproex 250 mg tablet,delayed 500 mg PO QHS 12/03/17 12/15/17 History release levothyroxine 50 mcg capsule 50 mcg PO DAILY 12/03/17 12/15/17 History mirtazapine 30 mg tablet 15 mg PO DAILY 12/03/17 12/15/17 History phenytoin sodium extended 100 mg 300 mg PO DAILY 12/03/17 12/15/17 History capsule tamsulosin 0.4 mg capsule 0.4 mg PO DAILY 12/03/17 12/15/17 History Ergocalciferol [Vitamin D] 50,000 unit PO Q7D 12/12/17 12/15/17 History Acetaminophen [Tylenol] 1,000 mg PO Q8 12/15/17 12/15/17 History Aspirin 325 mg PO BID 12/15/17 12/15/17 History Ensure Enlive 120 ml PO 4X/DAY 12/15/17 12/15/17 History Magnesium Hydroxide [Milk Of 30 ml PO DAILY PRN PRN udc 12/15/17 12/15/17 Rx Magnesia] Nicotine [Nicoderm Cq] 21 mg TRANSDERM. DAILY 12/15/17 12/15/17 History Current Medications Generic Name Dose Route Start Last Admin Trade Name Freq PRN Reason Stop Dose Admin Acetaminophen 1,000 mg 12/15/17 22:00 12/29/17 06:44 Tylenol PO 1,000 mg Q8 [facility] Administration Atorvastatin Calcium 40 mg 12/15/17 22:00 12/28/17 22:19 Lipitor PO 40 mg QHS [facility] Administration Bisacodyl 10 mg 12/15/17 17:34 Dulcolax RECTAL .PRN X 1 PRN Constipation Ciprofloxacin HCl 500 mg 12/28/17 11:22 12/29/17 10:11 Cipro PO 01/03/18 10:01 500 mg DAILY [facility] Administration Divalproex Sodium 500 mg 12/27/17 22:00 12/29/17 08:07 Depakote PO 500 mg BID [facility] Administration Enoxaparin Sodium 70 mg 12/22/17 18:00 12/29/17 06:42 Lovenox SC 70 mg Q12@0600,1800 [facility] Administration Ergocalciferol 50,000 unit 12/16/17 10:00 12/23/17 08:01 Vitamin D PO 50,000 unit Q7D [facility] Administration Levetiracetam 500 mg 12/27/17 22:00 12/29/17 08:10 Keppra Tablet PO 500 mg BID [facility] Administration Levothyroxine Sodium 50 mcg 12/16/17 06:00 12/29/17 06:44 Synthroid PO 50 mcg DAILY@0600 [facility] Administration Lidocaine 1 patch 12/27/17 10:00 12/29/17 10:11 Lidoderm Patch TOPICAL 1 patch DAILY [facility] Administration Protocol Lorazepam 4 mg 12/27/17 02:02 Ativan IV Q10M PRN PRN SEIZURE Magnesium Hydroxide 30 ml 12/15/17 17:34 Milk Of Magnesia PO .PRN X 1 PRN Constipation Mirtazapine 15 mg 12/15/17 22:00 12/28/17 22:21 Remeron PO 15 mg QHS [facility] Administration Nicotine 21 mg 12/16/17 10:00 12/29/17 08:08 Nicoderm Cq (Pbkc) TRANSDERM. 21 mg DAILY [facility] Administration Oxycodone HCl 5 mg 12/15/17 17:33 12/29/17 10:11 Oxyir PO 5 mg Q6H PRN PRN Administration SEVERE PAIN (6-10/10) Oxycodone HCl 5 mg 12/23/17 06:00 12/29/17 06:43 Oxyir PO 5 mg DAILY@0600 [facility] Administration Senna/Docusate Sodium 2 tablet 12/15/17 22:00 12/29/17 08:10 Senokot-S, Sri-Colace PO 1 tablet BID [facility] Administration Tamsulosin HCl 0.4 mg 12/16/17 08:30 12/29/17 08:07 Flomax PO 0.4 mg DAILY@0830 [facility] Administration Medical Necessity - Tobacco Use Smoking Status: Current every day smoker Tobacco Use: Non-smoker, Chew - Tobacco, - - dips snuff Assessment/Plan All Active Problems (Last Reviewed 12/12/17 @ 21:51 by Jerad Tyler MD) Nondisplaced fracture of neck of left femur (Acute) Multiple falls (Acute) Compression fx, thoracic spine (Acute) Debility s/p total left hip replacement, complicated by Parkinson, seizures and compression fractures of the thoracic spine. Goal of rehab is yazdanism of functional independence. 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 will schedule X-rays for 12/24 in prep for visit. - DVT in Left leg => started on therapeutic Lovenox at 1mg/kg for 70mg BID, at discharge switch to Xarelto 15mg BID x 3 weeks then 20mg Daily - Acute seizure start Keppra 500mg BID, continue Depakote at 500mg BID, d/c Dilantin . Tolerating medication changes well. - Un-witness fall => CTH negative for Acute Hemorrhagia, Xray of Pelvis and hip negative for fracture or dislocation. Will check a lumbar spine x-ray due to ongoing back pain.
--- NOTE | 2017-12-29 16:24 | CASEMGMT ---
Social Work Spoke with Mary (patient caregiver). This health social work professor communicating that team is currently recommending for patient to transition to an alf facility as patient is currently requiring 24hr care and sometimes 2 assist for mobility/transfers. Mary voicing understanding and agreeable as Mary is reporting that patient is unable to have 24hr care within the home and that Mary would not be able to manage patient needs at this moment. Mary requesting for referral to be made to [facility] ([facility]). Support given. Telephone call to [facility], Mary Kempmail with referral. Clinical information faxed. Initiated Transfer form. Proposed discharge date: 12/31/17 PLAN: Discharge to SNF. REINALDO Mcleod, REGIONAL HR MANAGER
--- NOTE | 2017-12-29 17:00 | PN_ITS ---
Subjective: Hypercoagulable studies positive for increased factor VIII activity Objective: GENERAL: cooperative HEENT: Atraumatic; moist oral mucosa EYES; Anicteric, Normal Conjunctiva NECK; supple, normal thyroid, no distended JVD. RESPIRATORY: Diminished to auscultation bilaterally, CARDIOVASCULAR: Regular S1 S2, no audible murmurs GI: soft, non-tender, normoactive bowel sounds, : No Renal angle tenderness; EXTREMITIES: No edema, no clubbing, no cyanosis. NEURO: Awake; no lateralizing signs. SKIN: No Rash PSYCH; Normal affect Vitals/I&O's: Vital Signs Temp Pulse Resp BP Pulse Ox 98.2 F 98 18 103/80 95 12/29/17 07:31 12/29/17 07:31 12/29/17 07:31 12/29/17 07:31 12/29/17 07:31 Oxygen Delivery Method Room Air Weight: 67 kg Body Mass Index (BMI) 23.6 Intake and Output for Last 24 Hours 12/27/17 12/28/17 12/29/17 23:59 23:59 23:59 Intake Total 480 / 480 240 / 240 Balance 480 / 480 240 / 240 Microbiology Past 72 Hours 12/27/17 15:00 Urine, Clean Catch Urine Culture - Preliminary Gram Positive Cocci Laboratory Results 12/22/17 16:38: Factor VIII Activity 278 H, von Willebrand Comment 389 H, Factor II DNA Analysis Comment Current Medications Acetaminophen (Tylenol) 1,000 mg PO Q8 [facility] Last Admin: 12/29/17 13:27 Dose: 1,000 mg Atorvastatin Calcium (Lipitor) 40 mg PO QHS [facility] Last Admin: 12/28/17 22:19 Dose: 40 mg Bisacodyl (Dulcolax) 10 mg RECTAL .PRN X 1 PRN PRN Reason: Constipation Ciprofloxacin HCl (Cipro) 500 mg PO DAILY [facility] Stop: 01/03/18 10:01 Last Admin: 12/29/17 10:11 Dose: 500 mg Divalproex Sodium (Depakote) 500 mg PO BID [facility] Last Admin: 12/29/17 08:07 Dose: 500 mg Enoxaparin Sodium (Lovenox) 70 mg SC Q12@0600,1800 [facility] Last Admin: 12/29/17 06:42 Dose: 70 mg Ergocalciferol (Vitamin D) 50,000 unit PO Q7D [facility] Last Admin: 12/23/17 08:01 Dose: 50,000 unit Levetiracetam (Keppra Tablet) 500 mg PO BID [facility] Last Admin: 12/29/17 08:10 Dose: 500 mg Levothyroxine Sodium (Synthroid) 50 mcg PO DAILY@0600 [facility] Last Admin: 12/29/17 06:44 Dose: 50 mcg Lidocaine (Lidoderm Patch) 1 patch TOPICAL DAILY [facility]; Protocol Last Admin: 12/29/17 10:11 Dose: 1 patch Lorazepam (Ativan) 4 mg IV Q10M PRN PRN PRN Reason: SEIZURE Magnesium Hydroxide (Milk Of Magnesia) 30 ml PO .PRN X 1 PRN PRN Reason: Constipation Mirtazapine (Remeron) 15 mg PO QHS [facility] Last Admin: 12/28/17 22:21 Dose: 15 mg Nicotine (Nicoderm Cq (Pbkc)) 21 mg TRANSDERM. DAILY [facility] Last Admin: 12/29/17 08:08 Dose: 21 mg Oxycodone HCl (Oxyir) 5 mg PO Q6H PRN PRN PRN Reason: SEVERE PAIN (6-12/01) Last Admin: 12/29/17 10:11 Dose: 5 mg Oxycodone HCl (Oxyir) 5 mg PO DAILY@0600 [facility] Last Admin: 12/29/17 06:43 Dose: 5 mg Senna/Docusate Sodium (Senokot-S, Sri-Colace) 2 tablet PO BID [facility] Last Admin: 12/29/17 08:10 Dose: 1 tablet Tamsulosin HCl (Flomax) 0.4 mg PO DAILY@0830 [facility] Last Admin: 12/29/17 08:07 Dose: 0.4 mg Medical Necessity - Tobacco Use Smoking Status: Current every day smoker Tobacco Use: Non-smoker, Chew - Tobacco, - - dips snuff Assessment/Plan All Active Problems (Last Reviewed 12/12/17 @ 21:51 by Jerad Tyler MD) Nondisplaced fracture of neck of left femur (Acute) Multiple falls (Acute) Compression fx, thoracic spine (Acute) Patient is a 57-year-old male admitted to the inpatient rehab unit following left hip replacement on account of fall with acute mechanical impacted nondisplaced left femoral neck fracture 1. Acute mechanical impacted nondisplaced left femoral neck fracture patient underwent left hip replacement subsequently admitted to the inpatient rehab unit where she is undergoing therapy 2. Seizure disorder with breakthrough seizure on the morning of 12/27/2017. Keppra was added to patient's therapy; he was on Dilantin this was discontinued he however remains on Depakote 3. DVT involving the left lower extremity. Patient hypercoagulable status came back positive for increased factor VIII activity did discuss with the patient on the need for him to be on systemic anticoagulation for life. 3. Parkinson's disease 4. Hypothyroidism-patient is on levothyroxine home dose continued 5. Dyslipidemia 6. BPH Active Medications Acetaminophen (Tylenol) 1,000 mg PO Q8 [facility] Last Admin: 12/28/17 12:50 Dose: 1,000 mg Atorvastatin Calcium (Lipitor) 40 mg PO QHS [facility] Last Admin: 12/27/17 23:38 Dose: 40 mg Bisacodyl (Dulcolax) 10 mg RECTAL .PRN X 1 PRN PRN Reason: Constipation Ciprofloxacin HCl (Cipro) 500 mg PO DAILY [facility] Stop: 01/03/18 10:01 Last Admin: 12/28/17 12:50 Dose: 500 mg Divalproex Sodium (Depakote) 500 mg PO BID [facility] Last Admin: 12/28/17 08:03 Dose: 500 mg Enoxaparin Sodium (Lovenox) 70 mg SC Q12@0600,1800 [facility] Last Admin: 12/28/17 06:49 Dose: 70 mg Ergocalciferol (Vitamin D) 50,000 unit PO Q7D [facility] Last Admin: 12/23/17 08:01 Dose: 50,000 unit Levetiracetam (Keppra Tablet) 500 mg PO BID [facility] Last Admin: 12/28/17 10:43 Dose: 500 mg Levothyroxine Sodium (Synthroid) 50 mcg PO DAILY@0600 [facility] Last Admin: 12/28/17 06:48 Dose: 50 mcg Lidocaine (Lidoderm Patch) 1 patch TOPICAL DAILY [facility]; Protocol Last Admin: 12/28/17 10:43 Dose: 1 patch Lorazepam (Ativan) 4 mg IV Q10M PRN PRN PRN Reason: SEIZURE Magnesium Hydroxide (Milk Of Magnesia) 30 ml PO .PRN X 1 PRN PRN Reason: Constipation Mirtazapine (Remeron) 15 mg PO QHS [facility] Last Admin: 12/27/17 23:38 Dose: 15 mg Nicotine (Nicoderm Cq (Pbkc)) 21 mg TRANSDERM. DAILY [facility] Last Admin: 12/28/17 08:04 Dose: 21 mg Oxycodone HCl (Oxyir) 5 mg PO Q6H PRN PRN PRN Reason: SEVERE PAIN (6-12/01) Last Admin: 12/28/17 13:28 Dose: 5 mg Oxycodone HCl (Oxyir) 5 mg PO DAILY@0600 [facility] Last Admin: 12/28/17 06:48 Dose: 5 mg Senna/Docusate Sodium (Senokot-S, Sri-Colace) 2 tablet PO BID [facility] Last Admin: 12/28/17 08:07 Dose: Not Given Tamsulosin HCl (Flomax) 0.4 mg PO DAILY@0830 [facility] Last Admin: 12/28/17 08:04 Dose: 0.4 mg Code Visit Inpatient E&M: 76937 Subs Hosp L2
[2017-12-29 19:35] VITALS: BP 108/78; PULSE 115; RESP 16; TEMP 37; O2SAT 97
[2017-12-29] MEDS: Mirtazapine 15 MG Tablet PO (20:04)
[2017-12-29] MEDS: Atorvastatin Calcium 40 MG Tablet PO (20:04)
--- NOTE | 2017-12-30 02:26 | NURSING ---
REVIEWED AND AGREE WITH VARNISH MAKER'S FIM AND HANDOFF CHARTING.
[2017-12-30] MEDS: Levothyroxine 50 MCG Tablet PO (06:39)
[2017-12-30] MEDS: oxyCODONE 5 MG Tablet PO ×2 (06:39→12:34)
[2017-12-30] MEDS: Acetaminophen 500 MG Tablet 1000 MG PO ×3 (06:40→21:59)
[2017-12-30] MEDS: Enoxaparin 80 MG/0.8 ML Syringe 70 MG SC ×2 (06:41→18:15)
[2017-12-30 08:00] VITALS: BP 108/67; PULSE 108; RESP 20; TEMP 36.8; O2SAT 95
[2017-12-30] MEDS: Ciprofloxacin 500 MG Tablet PO (09:25)
[2017-12-30] MEDS: Lidocaine 5% Patch 1 PATCH TOPICAL (09:25)
[2017-12-30] MEDS: Divalproex Sodium 250 MG Tablet 500 MG PO ×2 (09:25→21:58)
[2017-12-30] MEDS: Tamsulosin HCl 0.4 MG Capsule PO (09:25)
[2017-12-30] MEDS: levETIRAcetam 500 MG Tablet PO ×2 (09:25→21:59)
[2017-12-30] MEDS: Senna/Docusate Sodium 1 Tablet 2 TABLET PO (09:32)
--- NOTE | 2017-12-30 10:57 | PN.NEURO_ITS ---
Subjective: No issue overnight. Discussed with nursing staff. 57 yr M with PMH HLD, H/O seizures, ? PD, hypothyroidism, BPH admitted to [facility] on 12/16/17 with debility s/p mechanical fall and total left hip replacement for a left impacted nondisplaced femur neck fracture by Dr. Walden, for > 3hrs therapy daily with the goal of returning back home near or at his prior level of functional independence. Had been on Dilantin and Depakote for seizure precautions at home, following admission he was on ASA 325 mg BID for DVT prophylaxis per Dr. Walden's recommendation but later on 12/22/17 he was found to have left LE DVT and hypercoagulability work up showed increased factor VIII activity and high von Willebrand , hence was started on Lovenox [address] Walden's office was informed about the same, he had a seizure event on 12/27/17, had CT head which reported nothing acute, he was loaded with Keppra and since his Dilantin level was low, it was discontinued and he was started on Keppra, was found on the floor and had hip and pelvis Xray which did not show any new fractures, also complained of lower back pain and had X ray lumbar spine which reported to show loss of normal lumbar lordosis, stable minimal loss of right of the superior endplate of T12 vertebrae. He has been tolerating therapies well since admission but PT and OT felt he would benefit from further therapy and monitoring for which he will be transferred to SNF tomorrow (12/31/17). - Physical Exam General: Alert HEENT: Normocephalic Neck: Supple Lungs: Normal air movement Cardiovascular: Normal S1, Normal S2 Abdomen: Bowel Sounds Present Extremities: No cyanosis Neurological: - - consious, alert, AoAx3, CN 2-12 grossly intact, moves all 4 extremities, denies any sensory loss, no cerebellar signs, Reflexes + B/L B/S/T/K/A, gait deferred, mild increased tone both UE. Psych/Mental Status: Normal Affect Vital Signs Temp Pulse Resp BP Pulse Ox 98.2 F 108 H 20 H 108/67 95 12/30/17 08:00 12/30/17 08:00 12/30/17 08:00 12/30/17 08:00 12/30/17 08:00 Oxygen Delivery Method Room Air Weight: 67 kg Body Mass Index (BMI) 23.6 Intake and Output for Last 24 Hours 12/28/17 12/29/17 12/30/17 23:59 23:59 23:59 Intake Total 480 / 480 240 / 240 240 / 240 Balance 480 / 480 240 / 240 240 / 240 Microbiology Past 72 Hours 12/27/17 15:00 Urine Culture - Final Urine, Clean Catch Staphylococcus epidermidis Medical Necessity - Tobacco Use Smoking Status: Current every day smoker Tobacco Use: Non-smoker, Chew - Tobacco, - - dips snuff Assessment/Plan All Active Problems (Last Reviewed 12/12/17 @ 21:51 by Jerad Tyler MD) Nondisplaced fracture of neck of left femur (Acute) Multiple falls (Acute) Compression fx, thoracic spine (Acute) 57 yr M with PMH HLD, H/O seizures, ? PD, hypothyroidism, BPH admitted to [facility] on 12/16/17 with debility s/p mechanical fall and total left hip replacement for a left impacted nondisplaced femur neck fracture by Dr. Walden, for > 3hrs therapy daily with the goal of returning back home near or at his prior level of functional independence. Had been on Dilantin and Depakote for seizure precautions at home, following admission he was on ASA 325 mg BID for DVT prophylaxis per Dr. Walden's recommendation but later on 12/22/17 he was found to have left LE DVT and hypercoagulability work up showed increased factor VIII activity and high von Willebrand , hence was started on Lovenox [address] Walden's office was informed about the same, he had a seizure event on 12/27/17, had CT head which reported nothing acute, he was loaded with Keppra and since his Dilantin level was low, it was discontinued and he was started on Ke ppra, was found on the floor and had hip and pelvis Xray which did not show any new fractures, also complained of lower back pain and had X ray lumbar spine which reported to show loss of normal lumbar lordosis, stable minimal loss of right of the superior endplate of T12 vertebrae. He has been tolerating therapies well since admission but PT and OT felt he would benefit from further therapy and monitoring for which he will be transferred to SNF tomorrow (12/31/17). Plan: - Physical therapy for gait and balance - Occupational Therapy for ADLs - Speech therapy - As needed analgesics - Bowel protocol - DVT prophylaxis: SCDs, on Lovenox 70 mg SQ BID - Hx of HLD: on Lipitor - Hx of seizures => on Depakote and Keppra - Hx of Parkinson => currently not on any mediations, reasons unclear, patient is a very poor historian - Hx of BPH => continue with Flomax 0.4mg - Hx of Hypothyroidism => continue home dose of Synthroid - Hx of HLD continue home dose of Lipitor 40mg at HS - DVT in Left leg => started on therapeutic Lovenox at 1mg/kg for 70mg BID, - Un-witness fall => CTH negative for Acute Hemorrhagia, Xray of Pelvis and hip negative for fracture or dislocation. - UTI- on Cipro till 01/03/18. - Repeat CBC with diff and CMP. If Na is low will consult hospitalist for further recommendations. - GI/DVT prophylaxis - Fall precautions - Further medical management per hospitalist team - Likely discharge to SNF tomorrow 12/31/17. Needs to follow up with Dr. Walden, Hematology and PCP as outpatient.
--- NOTE | 2017-12-30 10:57 | PCM.TXEXTCAR ---
- Diet 12/15/17 17:36 Diet: Regular Diet Is pt able to select menu?: Yes - Routine Orders/Code Status Suppository Type: senna docusate Routine Lab Work: CBC, BMP, INR, - - PT/Aptt - Wound(s) left hip Wound Type: Surgical Incision RUE Wound Type: Abrasion left knee proximal Wound Type: Abrasion left knee distal Wound Type: Abrasion LAC Wound Type: IV WOUND rt eyebrow Wound Type: Laceration - Therapies Weight Bearing: Weight bearing as tolerated Extremity Affected:: Left Lower Physical Therapy: Eval and Treat Occupational Therapy: Eval and Treat - Allergies/Procedures Done in Hospital Allergies/Adverse Reactions: Allergies No Known Allergies Allergy (Verified 12/12/17 17:43) Procedures: None - Type of Care/Length of Stay Estimated LOS: More Than 30 Days Type of Care Needed: Skilled Rehab Potential: Fair Prognosis: Good - Additional Orders/Day of Discharge Day of Discharge: 12/31/17 - Dietary and Speech Recommendations Dietitian Recommendations/Changes: If pt PO fails at meals, consider ONS other than Ensure Enlive- per pt it upsets his stomach. Eating fine at current time, will DC supplement. - Follow Up Care Primary Care Physician: Jose Alvarez Chi, MD [Primary Care Provider] - Please Follow Up With: Stevo Walden DO Please Follow Up With: Ailyn Lau MD Please Follow Up With: Yoni Vogel MD
--- NOTE | 2017-12-30 11:02 | TREXTCAR_ITS ---
- Diet 12/15/17 17:36 Diet: Regular Diet Is pt able to select menu?: Yes - Routine Orders/Code Status Suppository Type: senna docusate Routine Lab Work: CBC, BMP, INR, - - PT/Aptt - Wound(s) left hip Wound Type: Surgical Incision RUE Wound Type: Abrasion left knee proximal Wound Type: Abrasion left knee distal Wound Type: Abrasion LAC Wound Type: IV WOUND rt eyebrow Wound Type: Laceration - Therapies Weight Bearing: Weight bearing as tolerated Extremity Affected:: Left Lower Physical Therapy: Eval and Treat Occupational Therapy: Eval and Treat - Allergies/Procedures Done in Hospital Allergies/Adverse Reactions: Allergies No Known Allergies Allergy (Verified 12/12/17 17:43) Procedures: None - Type of Care/Length of Stay Estimated LOS: More Than 30 Days Type of Care Needed: Skilled Rehab Potential: Fair Prognosis: Good - Additional Orders/Day of Discharge Day of Discharge: 12/31/17 - Dietary and Speech Recommendations Dietitian Recommendations/Changes: If pt PO fails at meals, consider ONS other than Ensure Enlive- per pt it upsets his stomach. Eating fine at current time, w ill DC supplement. - Follow Up Care Primary Care Physician: Jose Alvarez Chi, MD [Primary Care Provider] - Please Follow Up With: Stevo Walden DO Please Follow Up With: Ailyn Lau MD Please Follow Up With: Yoni Vogel MD
--- NOTE | 2017-12-30 11:21 | DS.PCM_ITS ---
Rehab Discharge Summary DATE OF ADMISSION: 12/15/17 DATE OF DISCHARGE: 12/31/2017 - Rehab Diagnosis debility s/p mechanical fall and total left hip replacement for a left impacted nondisplaced femur neck fracture Subjective: No issues overnight except he had some irregular heart beat with tachycardia overnight for which hospitalist was contacted and patient was given metoprolol, this morning patient was in sinus rhythm with HR of around 85/min, Care di scussed with nursing staff. EKG was not obtained by hospitalist overnight. At present his rate is regular and will have cardiology follow up as outpatient. - Physical Exam General: Alert HEENT: Normocephalic Neck: Supple Lungs: Normal air movement Cardiovascular: Normal S1, Normal S2 Abdomen: Bowel Sounds Present Extremities: No cyanosis Neurological: - - consious, alert, AoAx3, CN 2-12 grossly intact, moves all 4 extremities, denies any sensory loss, no cerebellar signs, Reflexes + B/L B/S/T/K/A, gait deferred, mild increased tone both UE. Psych/Mental Status: Normal Affect Vital Signs Temp Pulse Resp BP Pulse Ox 98.2 F 108 H 20 H 108/67 95 12/30/17 08:00 12/30/17 08:00 12/30/17 08:00 12/30/17 08:00 12/30/17 08:00 Oxygen Delivery Method Room Air Weight: 67 kg Body Mass Index (BMI) 23.6 Intake and Output for Last 24 Hours 12/28/17 12/29/17 12/30/17 23:59 23:59 23:59 Intake Total 480 / 480 240 / 240 240 / 240 Balance 480 / 480 240 / 240 240 / 240 Microbiology Past 72 Hours 12/27/17 15:00 Urine Culture - Final Urine, Clean Catch Staphylococcus epidermidis Discharge Diet: No Restrictions Discharge Activity: May Not Drive, Use Walker Weight Bearing Status: Weight bearing as tolerated Call your doctor if your incision/area has: Continuous Slow Oozing, Sudden Increased Bleeding, Increased Pain/ Swelling, Increased Redness, Foul Smelling Discharge, Swelling at the incision site Call your doctor if you observe: Fever of 101 or Higher, Coldness, Increased Pain, Numbness or Tingling, Change in Color, Inability to urinate, Inability to have a bowel movement, Using more than one pad per hour, Shortness of breath, Dizziness, Fainting spells, Swelling in the ankles, Chest pain, Prolonged hiccoughing, Increased palpitations (irregular heartbeat), Calf discomfort, Uncontrolled pain Cleanse incision/area with: Soap & Water Home Medications: Medications to take at Discharge atorvastatin 40 mg tablet 40 mg PO QHS 12/03/17 levothyroxine 50 mcg capsule 50 mcg PO DAILY 12/03/17 mirtazapine 30 mg tablet 15 mg PO DAILY 12/03/17 tamsulosin 0.4 mg capsule 0.4 mg PO DAILY 12/03/17 Ergocalciferol [Vitamin D] 50,000 unit PO Q7D 12/12/17 Nicotine [Nicoderm Cq] 21 mg TRANSDERM. DAILY 12/15/17 Ciprofloxacin [Cipro] 500 mg PO DAILY tablet 12/30/17 Divalproex Sodium [Depakote] 500 mg PO BID tablet 12/30/17 Enoxaparin [Lovenox] 70 mg SC Q12@0600,1800 syringe 12/30/17 Oxycodone [Oxyir] 5 mg PO DAILY@0600 5 Days #5 tablet 12/30/17 Oxycodone [Oxyir] 5 mg PO Q6H PRN PRN 3 Days #15 tablet 12/30/17 levETIRAcetam tablet [Keppra tablet] 500 mg PO BID tablet 12/30/17 Metoprolol Tartrate [Lopressor (beta karishma)] 25 mg PO BID tablet 12/31/17 Primary Care Physician: Jose Alvarez Chi, MD [Primary Care Provider] - Please Follow Up With: Stevo Walden DO Please Follow Up With: Ailyn Lau MD [facility]position[facility] Jail facility Minutes spent on discharge:: 40 Patient Condition:: Fair Rehab Course 57 yr M with [facility] HLD, H/O seizures, ? PD, hypothyroidism, BPH admitted to [facility] on 12/16/17 with debility s/p mechanical fall and total left hip replacement for a left impacted nondisplaced femur neck fracture by Dr. Walden, for > 3hrs therapy daily with the goal of returning back home near or at his prior level of functional independence. Had been on Dilantin and Depakote for seizure precaut ions at home, following admission he was on ASA 325 mg BID for DVT prophylaxis per Dr. Walden's recommendation but later on 12/22/17 he was found to have left LE DVT and hypercoagulability work up showed increased factor VIII activity and high von Willebrand , hence was started on Lovenox [address] Walden's office was informed about the same, he had a seizure event on 12/27/17, had CT head which reported nothing acute, he was loaded with Keppra and since his Dilantin level was low, it was discontinued and he was started on Keppra, was found on the floor and had hip and pelvis Xray which did not show any new fractures, also complained of lower back pain and had X ray lumbar spine which reported to show loss of normal lumbar lordosis, stable minimal loss of right of the superior endplate of T12 vertebrae. Patient had increased WBC and low NA during his rehab stay for which he was seen by hospitalist and recommendations followed. He had irregular heart beat overnight and hospitalist contacted who started him on metoprolol but did not get EKG and he had normal rhythm this morning (12/31/17) and recommend cardiology consult as outpatient. He has been tolerating therapies well since admission but PT and OT felt he would benefit from further therapy and monitoring for which he will be transferred to SNF. Meaningful Use Info Meaningful Use Diagnoses (Choose all that apply): None applicable
[2017-12-30 13:13] LABS: Absolute Lymphocyte Count 2.57 X10^3/ul (0.83-4.51); Absolute Neutrophil Count 9.3 X10^3/uL (2.0-7.7); Basophil# 0.06 X10^3/uL; Basophil% 0.4 % (0-1); Eosinophil# 0.14 X10^3/uL; Hematocrit 32.5 % (40-54); Hemoglobin 10.5 g/dl (13.0-16.5); Lymphocyte # 2.57 X10^3/ul (4.0); Lymphocyte % 18.1 % (19-41); Mean Corp Hgb Conc 32.3 g/gl (32-36); Mean Corpuscular Hgb 30.4 pg (27.0-32.0); Mean Corpuscular Volume 94.2 fL (80-94); Mean Platelet Vol. 9.1 fl (6.2-12.0); Monocyte# 2.09 X10^3/uL; Monocyte% 14.8 % (0-10); Neutrophil # 9.27 X10^3/uL (2.7-7.7); Neutrophil % 65.5 % (47-70); Platelet Count 484 K/mm3 (150-450); RBC Distribution Width CV 15.4 % (11.6-14.6); RBC Distribution Width SD 52.6 fl (35.1-43.9); Red Blood Count 3.45 M/mm3 (4.6-6.2); White Blood Count 14.2 K/mm3 (4.4-11.0)
[2017-12-30 13:14] LABS: Differential Indicated SCAN CRITERIA MET; POSITIVE COUNT NO; POSITIVE DIFFERENTIAL YES; POSITIVE MORPHOLOGY NO
[2017-12-30 13:48] LABS: ALB/GLOB Ratio 0.6 RATIO (0.9-2.4); AST(SGOT) 24 U/L (15-37); Alanine Aminotransfer ALT/SGPT 21 U/L (16-61); Albumin, Serum 3.3 g/dL (3.2-5.0); Alkaline Phosphatase 117 U/L (45-117); Anion Gap 11 (5-15); BUN 8 mg/dL (7-18); BUN/Creat Ratio 11.1 RATIO (10-20); Chloride 92 mmol/L (98-107); Creatinine, Serum 0.72 mg/dL (0.70-1.30); EST Glomerular Filtration Rate 120 mL/min (>60); Est Glom Filt Rate - Afr Amer 145 mL/min (>60); Estimated Creatinine Clearance 107.27 ml/min; Globulin 5.3 g/dL (2.2-4.2); Glucose 114 mg/dL (74-106); Potassium 3.4 mmol/L (3.5-5.1); Protein, Total 8.6 g/dL (6.4-8.2); Sodium Level 130 mmol/L (136-145)
--- NOTE | 2017-12-30 16:50 | CASEMGMT ---
Social Work Telephone call from [facility]. They are able to accept patient on 12/31/17. Will fax discharge information and PASRR results when obtained. Spoke with patient and patient family in room. Patient completing Health Care DPOA paperwork with patient and patient manager critical care unit, July. Original DPOA for health given to patient and copy placed on chart. This director social service communicating above information. Mary and patient agreeable to discharge plan and requesting for transportation to be set up via wheelchair van. Support given. Telephone call to [facility]. Transportation set up for 12/31/17 @ 3:00pm. Transportation form completed and placed with patient discharge information. PASRR completed in [facility], will fax with orders, when orders are obtained. Proposed discharge date: 12/31/17 PLAN: Discharge to [facility], [place]. REINALDO Mcleod, PARTS COUNTER SPECIALIST
[2017-12-30 21:01] VITALS: BP 106/69; PULSE 111; RESP 14; TEMP 36.6; O2SAT 99
[2017-12-30] MEDS: Atorvastatin Calcium 40 MG Tablet PO (21:59)
[2017-12-30] MEDS: Mirtazapine 15 MG Tablet PO (21:59)
[2017-12-30 22:00] VITALS: PULSE 105
--- NOTE | 2017-12-30 22:32 | NURSING ---
DR JI INFORMED THAT PT'S HR WAS NOTED TO BE IRREGULAR THIS SHIFT. PT DENIES CHEST PAIN, SOB, OR ANY OTHER SYMPTOMS. NOTED ALSO ELEVATED HR RECENTLY. ORDERS GIVEN.
[2017-12-30 23:16] VITALS: PULSE 110
[2017-12-30] MEDS: Metoprolol Tartrate 25 MG Tablet PO (23:16)
[2017-12-31] MEDS: Enoxaparin 80 MG/0.8 ML Syringe 70 MG SC (06:38)
[2017-12-31] MEDS: oxyCODONE 5 MG Tablet PO (06:38)
[2017-12-31] MEDS: Levothyroxine 50 MCG Tablet PO (06:39)
[2017-12-31] MEDS: Acetaminophen 500 MG Tablet 1000 MG PO ×2 (06:39→13:15)
[2017-12-31 07:00] VITALS: BP 104/77; PULSE 82; RESP 20; TEMP 36.8; O2SAT 96
--- NOTE | 2017-12-31 07:35 | PCM.PN.HOSP ---
Subjective: Patient seen plan is for patient to be discharged to group home facility. Urine cultures came back positive for staph epi patient was on Cipro for 7 days no need for additional treatment electrolyte obtained the day prior demonstrated sodium level of 127 patient did receive IV fluid resuscitation. Potassium 3.4 p.o. KCl initiated Objective: GENERAL: cooperative HEENT: Atraumatic; moist oral mucosa EYES; Anicteric, Normal Conjunctiva NECK; supple, normal thyroid, no distended JVD. RESPIRATORY: Diminished to auscultation bilaterally, CARDIOVASCULAR: Regular S1 S2, no audible murmurs GI: soft, non-tender, normoactive bowel sounds, : No Renal angle tenderness; EXTREMITIES: No edema, no clubbing, no cyanosis. NEURO: Awake; no lateralizing signs. SKIN: No Rash PSYCH; Normal affect Vitals/I&O's: Vital Signs Temp Pulse Resp BP Pulse Ox 97.9 F 110 H 14 106/69 99 12/30/17 21:01 12/30/17 23:16 12/30/17 21:01 12/30/17 21:01 12/30/17 21:01 Oxygen Delivery Method Room Air Weight: 67 kg Body Mass Index (BMI) 23.6 Intake and Output for Last 24 Hours 12/29/17 12/30/17 12/31/17 23:59 23:59 23:59 Intake Total 240 / 240 240 / 240 Balance 240 / 240 240 / 240 Microbiology Past 72 Hours 12/27/17 15:00 Urine, Clean Catch Urine Culture - Final Staphylococcus epidermidis Laboratory Results 12/30/17 13:00: WBC 14.2 H, RBC 3.45 L, Hgb 10.5 L, Hct 32.5 L, MCV 94.2 H, MCH 30.4, MCHC 32.3, RDW 15.4 H, RDW Differential 52.6 H, Plt Count 484 H, MPV 9.1, Immature Gran % (Auto) 0.200, Neut % (Auto) 65.5, Lymph % (Auto) 18.1 L, [place] % (Auto) 14.8 H, Eos % (Auto) 1.0, Baso % (Auto) 0.4, Absolute Neuts (auto) 9.3 H, Absolute Lymphs (auto) 2.57, Total Counted Not Reportable 12/30/17 13:00: Sodium 130 L, Potassium 3.4 L, Chloride 92 L, Carbon Dioxide 27.0, Anion Gap 11, BUN 8, Creatinine 0.72, Estim Creat Clear Calc 107.27, Est GFR (MDRD) Af Amer 145, Est GFR (MDRD) Non-Af 120, BUN/Creatinine Ratio 11.1, Glucose 114 H, Calcium 9.0, Total Bilirubin 0.60, AST 24, ALT 21, Alkaline Phosphatase 117, Total Protein 8.6 H, Albumin 3.3, Globulin 5.3 H, Albumin/Globulin Ratio 0.6 L Current Medications Acetaminophen (Tylenol) 1,000 mg PO Q8 [facility] Last Admin: 12/31/17 06:39 Dose: 1,000 mg Atorvastatin Calcium (Lipitor) 40 mg PO QHS [facility] Last Admin: 12/30/17 21:59 Dose: 40 mg Bisacodyl (Dulcolax) 10 mg RECTAL .PRN X 1 PRN PRN Reason: Constipation Ciprofloxacin HCl (Cipro) 500 mg PO DAILY [facility] Stop: 01/03/18 10:01 Last Admin: 12/30/17 09:25 Dose: 500 mg Divalproex Sodium (Depakote) 500 mg PO BID [facility] Last Admin: 12/30/17 21:58 Dose: 500 mg Enoxaparin Sodium (Lovenox) 70 mg SC Q12@0600,1800 [facility] Last Admin: 12/31/17 06:38 Dose: 70 mg Ergocalciferol (Vitamin D) 50,000 unit PO Q7D [facility] Last Admin: 12/30/17 09:25 Dose: 50,000 unit Levetiracetam (Keppra Tablet) 500 mg PO BID [facility] Last Admin: 12/30/17 21:59 Dose: 500 mg Levothyroxine Sodium (Synthroid) 50 mcg PO DAILY@0600 [facility] Last Admin: 12/31/17 06:39 Dose: 50 mcg Lidocaine (Lidoderm Patch) 1 patch TOPICAL DAILY [facility]; Protocol Last Admin: 12/30/17 09:25 Dose: 1 patch Lorazepam (Ativan) 4 mg IV Q10M PRN PRN PRN Reason: SEIZURE Magnesium Hydroxide (Milk Of Magnesia) 30 ml PO .PRN X 1 PRN PRN Reason: Constipation Metoprolol Tartrate (Lopressor (Beta Daina)) 25 mg PO BID [facility] Last Admin: 12/30/17 23:16 Dose: 25 mg Mirtazapine (Remeron) 15 mg PO QHS [facility] Last Admin: 12/30/17 21:59 Dose: 15 mg Nicotine (Nicoderm Cq (Pbkc)) 21 mg TRANSDERM. DAILY [facility] Last Admin: 12/30/17 09:25 Dose: 21 mg Oxycodone HCl (Oxyir) 5 mg PO Q6H PRN PRN PRN Reason: SEVERE PAIN (6-10) Last Admin: 12/30/17 12:34 Dose: 5 mg Oxycodone HCl (Oxyir) 5 mg PO DAILY@0600 [facility] Last Admin: 12/31/17 06:38 Dose: 5 mg Potassium Chloride (K-Dur) [facility] Senna/Docusate Sodium (Senokot-S, Sri-Colace) 2 tablet PO BID [facility] Last Admin: 12/30/17 21:59 Dose: Not Given Tamsulosin HCl (Flomax) 0.4 mg PO DAILY@0830 [facility] Last Admin: 12/30/17 09:25 Dose: 0.4 mg Medical Necessity - Tobacco Use Smoking Status: Current every day smoker Tobacco Use: Non-smoker, Chew - Tobacco, - - dips snuff Assessment/Plan All Active Problems (Last Reviewed 12/12/17 @ 21:51 by Jerad Tyler MD) Nondisplaced fracture of neck of left femur (Acute) Multiple falls (Acute) Compression fx, thoracic spine (Acute) Patient is a 57-year-old male admitted to the inpatient rehab unit following left hip replacement on account of fall with acute mechanical impacted nondisplaced left femoral neck fracture 1. Acute mechanical impacted nondisplaced left femoral neck fracture patient underwent left hip replacement subsequently admitted to the inpatient rehab unit where she is undergoing therapy 2. Seizure disorder with breakthrough seizure on the morning of 12/27/2017. Keppra was added to patient's therapy; he was on Dilantin this was discontinued he however remains on Depakote 3. DVT involving the left lower extremity. Patient hypercoagulable status came back positive for increased factor VIII activity did discuss with the patient on the need for him to be on systemic anticoagulation for life. 3. Parkinson's disease 4. Hypothyroidism-patient is on levothyroxine home dose continued 5. Dyslipidemia 6. BPH 7. Acute cystitis with staph epi treated appropriately 8. Hypokalemia corrected per protocol 9. Hyponatremia suspected to be hypovolemic hyponatremia patient did receive saline sodium levels improving Code Visit Inpatient E&M: 90829 Subs Hosp L2
[2017-12-31 08:30] VITALS: PULSE 80
[2017-12-31] MEDS: levETIRAcetam 500 MG Tablet PO (08:39)
[2017-12-31 08:40] VITALS: BP 104/77; PULSE 82
[2017-12-31] MEDS: Ciprofloxacin 500 MG Tablet PO (08:40)
[2017-12-31] MEDS: Metoprolol Tartrate 25 MG Tablet PO (08:40)
[2017-12-31] MEDS: Lidocaine 5% Patch 1 PATCH TOPICAL (08:40)
[2017-12-31] MEDS: Tamsulosin HCl 0.4 MG Capsule PO (08:40)
[2017-12-31] MEDS: Divalproex Sodium 250 MG Tablet 500 MG PO (08:40)
[2017-12-31] MEDS: Senna/Docusate Sodium 1 Tablet 2 TABLET PO (08:41)
[2017-12-31 13:56] VITALS: BP 104/77; PULSE 82; RESP 20; TEMP 36.8; O2SAT 96
--- NOTE | 2017-12-31 15:17 | NURSING ---
Called Report to Mary, nurse at [place], [facility] had all personal belongings in hand.
== END 2017-12-31 15:22 | disposition skilled nursing facility (03) | DRG 560 ==
PROVIDERS: Hospitalist; Nurse Practitioner Acute Care; Psychiatry & Neurology Neurology; Admitting Provider Psychiatry & Neurology Neurology; Family Provider Family Medicine Geriatric Medicine; PCP Family Medicine Geriatric Medicine; Referring Provider Psychiatry & Neurology Neurology; Visit Provider Internal Medicine
DX: S72.002D Fracture of unspecified part of neck of left femur, subsequent encounter for closed fracture with routine healing (principal); I82.402 Acute embolism and thrombosis of unspecified deep veins of left lower extremity; N30.00 Acute cystitis without hematuria; Z96.642 Presence of left artificial hip joint; I10 Essential (primary) hypertension; E78.5 Hyperlipidemia, unspecified; E03.9 Hypothyroidism, unspecified; N40.0 Benign prostatic hyperplasia without lower urinary tract symptoms; G40.909 Epilepsy, unspecified, not intractable, without status epilepticus; W18.39XD Other fall on same level, subsequent encounter; G20 Parkinson's disease; F17.220 Nicotine dependence, chewing tobacco, uncomplicated; M48.54XD Collapsed vertebra, not elsewhere classified, thoracic region, subsequent encounter for fracture with routine healing; B95.7 Other staphylococcus as the cause of diseases classified elsewhere
CPT/HCPCS: 36415; 70450; 72100; 73502; 80048; 80053; 80164; 80185; 81001; 81240; 82962; 85025; 85027; 85240; 85245; 87077; 87086; 87088; 87186; 93971; 97110; 97116; 97162; 97166; 97530; 97535; 97802; 99406; A4216

== ENCOUNTER → 2018-01-11 10:51 | Outpatient (CLI) | payer MEDICARE, MEDICAID, SELFPAY ==
[2018-01-04 15:21] VITALS: BMI 22.4
== END ==
PROVIDERS: Family Provider Family Medicine Geriatric Medicine; PCP Family Medicine Geriatric Medicine; Referring Provider Surgery; Visit Provider Surgery
DX: Z00.00 Encounter for general adult medical examination without abnormal findings (principal)

== ENCOUNTER → 2018-01-14 08:51 | Outpatient (CLI) | payer MEDICARE, MEDICAID, SELFPAY ==
[2018-01-11 14:15] VITALS: BMI 20.7
--- NOTE | 2018-01-14 08:54 | ECHOD_ITS ---
Reason For Study: ARRHYTHMIA Procedure This was a 2D Doppler, Color Flow transthoracic echocardiogram. Exam performed in department. Left Ventricle Normal size and thickness. The estimated ejection fraction is 65 %. Stage 1 diastolic dysfunction. No regional wall motion abnormalities noted. Right Ventricle Normal size and thickness. Normal systolic function. Atria Normal left atrium. Normal right atrium. Normal atrial septum. Mitral Valve The mitral valve is structurally normal. No prolapse or stenosis seen. Tricuspid Valve Normal tricuspid valve. Unable to estimate RV systolic pressure due to inadequate jet, pulmonary artery pressure probably normal. Aortic Valve Trisinus/trileaflet aortic valve. Pulmonic Valve Normal pulmonic valve. Trivial pulmonic valve insufficiency. Great Vessels Normal aortic root. Normal arch. Normal inferior vena cava. Inferior vena cava collapse with sniff. Pericardium/Pleural No pericardial effusion. MMode/2D Measurements & Calculations LVIDd: 3.1 cm IVSd: 0.81 cm Ao root diam: 3.2 cm LVIDs: 2.2 cm LVPWd: 0.83 cm RVDd: 2.8 cm FS: 28.2 % LAV(MOD-bp): 15.3 ml LVAd ap4: 25.3 cm2 SV(MOD-sp4): 37.9 ml LAV(MOD-bp) Indexed: 8.8 ml/m2 EDV(MOD-sp4): 65.4 ml LAV(MOD-sp2): 18.6 ml EDV(sp4-el): 68.9 ml LAV(MOD-sp4): 11.8 ml LVAs ap4: 14.5 cm2 ESV(MOD-sp4): 27.5 ml ESV(sp4-el): 28.4 ml EF(MOD-sp4): 58.0 % EF(sp4-el): 58.8 % SV(sp4-el): 40.5 ml LA A4 area: 7.3 cm2 LA dimension(2D): 2.6 cm RA A4 area: 6.5 cm2 Time Measurements MV dec time: 0.26 sec Doppler Measurements & Calculations MV E max dave: 59.7 cm/sec Lat Peak E' Dave: 4.4 cm/sec Med Peak E' Dave: 3.6 cm/sec MV A max dave: 78.6 cm/sec E/E' lat: 13.6 E/E' med: 16.5 MV E/A: 0.76 Ao V2 max: 92.6 cm/sec LV V1 max: 76.1 cm/sec PA V2 max: 133.7 cm/sec Ao max P.4 mmHg LV V1 max P.3 mmHg PI end-d dave: 82.0 cm/sec Interpretation Summary The estimated ejection fraction is 65 %. Stage 1 diastolic dysfunction. Unable to estimate RV systolic pressure due to inadequate jet, pulmonary artery pressure probably normal. There is no comparison study available. Ordering Physician: Isiah Mendez Referring Physician: KYLAH CAIN CHI Performed By: Sheyla To RDCS, RVT
== END ==
PROVIDERS: Family Provider Family Medicine Geriatric Medicine; PCP Family Medicine Geriatric Medicine; Referring Provider Internal Medicine Cardiovascular Disease; Visit Provider Internal Medicine Cardiovascular Disease
DX: R00.8 Other abnormalities of heart beat (principal); I82.402 Acute embolism and thrombosis of unspecified deep veins of left lower extremity
CPT/HCPCS: 93306

== ENCOUNTER → 2018-01-21 10:15 | Outpatient (CLI) | payer MEDICARE, MEDICAID, SELFPAY ==
[2018-01-11 14:15] VITALS: BMI 20.7
--- NOTE | 2018-01-21 10:18 | STEWCON_ITS ---
Reason For Study: ARRHYTHMIA Stress Results Protocol: Dobutamine Maximum Predicted HR: 163 bpm Target HR: 139 bpm % Maximum Predicted HR: 90 % DurationHeart Rate Stage (mm:ss) (bpm) BP Dose Comment BASELINE 72 108/73 0.2 ML DEFINITY STAGE 1 3:00 75 104/6410.000.2 ML DEFINITY STAGE 2 3:00 100 101/6920.00 STAGE 3 3:00 131 113/8030.00 STAG 4 2:08 146 / 40.000.2 ML DEFINITY RECOVERY 91 103/72 0.2 ML DEFINITY Stress Duration: 11:08 mm:ss Maximum Stress HR: 146 bpm Baseline Echocardiogram Findings The estimated ejection fraction is 65 %. Stress Echo Wall motion Data Resting WM Intermediate WM Stress WM Resting Wall Motion Wall Motion Stress No regional wall motion No regional wall motion abnormalities noted. abnormalities noted. EKG Data Normal intervals are noted. The patient was titrated from 10 mcg to a maximum of 40 mcg of dobutamine during the stress. The maximum heart rate attained was 146 beats per minute. This was 89% of maximum predicted heart rate. During dobutamine infusion, there were no ST or T wave changes noted to suggest ischemia. No arrhythmias noted. No clinical angina was noted. Interpretation Summary The study was technically difficult. Contrast injection was performed. The estimated ejection fraction is 65 %. Normal, adequate, dobutamine echocardiogram. Negative for ischemia by EKG and echocardiographic criteria. No anginal symptoms noted. No arrhythmias noted. Appropriate blood pressure response to dobutamine. Final LVEF is 75%. Test terminated due to the attainment of target heart rate. Decreased sensitivity due to poor echo windows requiring Definity enhancing agent. No complications. Ordering Physician: Isiah Mendez MD Referring Physician: Isiah Mendez Performed By: Angela Merida, HARSH, RVT
--- OUTSIDE RECORDS SUMMARY | 2018-03-18 05:16 | XMS RPT_ITS ---
:1960 Author Organization OHIP Support Name Relationship Address Phone D Unavailable Unavailable Unavailable LIGHT, JULY Unavailable [address] [place] [address] D Unavailable Unavailable Unavailable LIGHT, JULY Unavailable [address] [place] [address] D Unavailable Unavailable Unavailable Light, July Unavailable [address] [place] [address] D Unavailable Unavailable Unavailable Light, July Unavailable [address] [place] [address] D Unavailable Unavailable Unavailable LIGHT, JULY Unavailable [address] [place] [address] D Unavailable Unavailable Unavailable LIGHT, JULY Unavailable [address] [place] [address] D Unavailable Unavailable Unavailable LIGHT, JULY Unavailable [address] [place] [address] D Unavailable Unavailable Unavailable LIGHT, JULY Unavailable [address] [place] [address] D Unavailable Unavailable Unavailable LIGHT, JULY Unavailable [address] [place] [address] D Unavailable Unavailable Unavailable Light, July Unavailable [address] [place] [address] D Unavailable Unavailable Unavailable LIGHT, JULY Unavailable [address] [place] [address] D Unavailable Unavailable Unavailable Light, July Unavailable [address] [place] [address] D Unavailable Unavailable Unavailable Light, July Unavailable [address] + [address] [place] [address] D Unavailable Unavailable Unavailable Light, July Unavailable [address] [place] [address] D Unavailable Unavailable Unavailable Light, July Unavailable [address] [place] [address] D Unavailable Unavailable Unavailable Light, July Unavailable [address] [place] [address] D Unavailable Unavailable Unavailable LIGHT, JULY Unavailable [address] [place] [address] D Unavailable Unavailable Unavailable LIGHT, JULY Unavailable [address] [place] [address] D Unavailable Unavailable Unavailable LIGHT, JULY Unavailable [address] [place] [address] D Unavailable Unavailable Unavailable LIGHT, JULY Unavailable [address] + [address] [place] [address] D Unavailable Unavailable Unavailable Light, July Unavailable [address] [place] [address] D Unavailable Unavailable Unavailable LIGHT, JULY Unavailable [address] [place] [address] D Unavailable Unavailable Unavailable LIGHT, JULY Unavailable [address] [place] [address] D Unavailable Unavailable Unavailable LIGHT, JULY Unavailable [address] [place] [address] D Unavailable Unavailable Unavailable LIGHT, JULY Unavailable [address] [place] [address] D Unavailable Unavailable Unavailable LIGHT, JULY Unavailable [address] [place] [address] D Unavailable Unavailable Unavailable LIGHT, JULY Unavailable [address] [place] [address] D Unavailable Unavailable Unavailable LIGHT, JULY Unavailable [address] [place] [address] D Unavailable Unavailable Unavailable LIGHT, JULY Unavailable [address] [place] [address] D Unavailable Unavailable Unavailable LIGHT, JULY Unavailable [address] [place] [address] D Unavailable Unavailable Unavailable LIGHT, JULY Unavailable [address] + [place] [address] LIGHT, JULY Unavailable [address] [employer] [address] + [place] [address] LIGHT, JULY Unavailable [address] [employer] [address] + [place] [address] D Unavailable Unavailable Unavailable LIGHT, JULY Unavailable [address] + [place] [address] Care Team Providers Name Role Phone ANTONIO JOSE, DR. MONTERO-PANCHITO Primary Care Unavailable MARTHA JOSE MD. NOEMY Alcantar Admitting Unavailable MARTHA JOSE MD. NOEMY Alcantar Attending Unavailable UNA LAUREANO DO Consulting Unavailable DAIANA ANN MD Consulting Unavailable JOYCE WEINBERG MD Attending Unavailable ANTONIO JOSE, DR. MONTEROPANCHITO Primary Care Unavailable Antonio, Jose Chi Attending Unavailable Antonio, Jose Chi Referring Unavailable Antonio, Jose Chi Primary Care Unavailable Antonio, Jose Chi Attending Unavailable Antonio, Jose Chi Primary Care Unavailable Dirk Osman Attending Unavailable Dirk Osman Referring Unavailable Antonio, Jose Chi Primary Care Unavailable Jerad Tyler Admitting Unavailable Antonio, Jose Chi Primary Care Unavailable Mike Cardenas Consulting Unavailable Dexter Vásquez Attending Unavailable Dexter Vásquez Consulting Unavailable Jerad Tyler Admitting Unavailable Antonio, Jose Chi Primary Care Unavailable Mike Cardenas Consulting Unavailable Dexter Vásquez Attending Unavailable Dexter Vásquez Consulting Unavailable Stephen Wolfe Attending Unavailable Nato Christensen Admitting Unavailable Nato Christensen Referring Unavailable Antonio, Jose Chi Primary Care Unavailable Dexter Vásquez Consulting Unavailable Nathan Melissa Consulting Unavailable Isiah Lieberman Attending Unavailable Agyepong, Jerad Referring Unavailable Isiah Lieberman Attending Unavailable Agyepong, Jerad Referring Unavailable Isiah Lieberman Attending Unavailable Antonio, Jose Chi Referring Unavailable Isiah Lieberman Attending Unavailable Isiah Lieberman Referring Unavailable Antonio, Jose Chi Primary Care Unavailable DiyausAilyn Attending Unavailable Antonio, Jose Chi Primary Care Unavailable IscsolousAilyn Attending Unavailable Antonio, Jose Chi Primary Care Unavailable IscsolousAilyn Consulting Unavailable Isiah Lieberman Attending Unavailable Isiah Lieberman Referring Unavailable Antonio, Jose Chi Primary Care Unavailable Isiah Lieberman Consulting Unavailable Antonio, Jose Chi Attending Unavailable Antonio, Jose Chi Referring Unavailable Antonio, Jose Chi Primary Care Unavailable Christensen, Nato Admitting Unavailable Stephen Wolfe Attending Unavailable Christensen, Nato Referring Unavailable Antonio, Jose Chi Primary Care Unavailable Dexter Vásquez Consulting Unavailable Stephen Wolfe Consulting Unavailable Christensen, Nato Admitting Unavailable Stephen Wolfe Attending Unavailable Christensen, Nato Referring Unavailable Antonio, Jose Chi Primary Care Unavailable Dexter Vásquez Consulting Unavailable Stephen Wolfe Consulting Unavailable Christensen, Nato Admitting Unavailable Ashelfah, Ghasem Attending Unavailable Christensen, Nato Referring Unavailable Antonio, Jose Chi Primary Care Unavailable Dexter Vásquez Consulting Unavailable Ashelfah, Ghasem Consulting Unavailable Christensen, Nato Admitting Unavailable Dexter Vásquez Attending Unavailable Christensen, Nato Referring Unavailable Antonio, Jose Chi Primary Care Unavailable Dexter Vásquez Consulting Unavailable Christensen, Nato Consulting Unavailable Christensen, Nato Admitting Unavailable Christensen, Nato Referring Unavailable Antonio, Jose Chi Primary Care Unavailable Dexter Vásquez Consulting Unavailable Stephen Wolfe Attending Unavailable Antonio, Jose Chi Attending Unavailable Antonio, Jose Chi Primary Care Unavailable Agyepong, Jerad Admitting Unavailable Antonio, Jose Chi Primary Care Unavailable Mike Cardenas Consulting Unavailable Dexter Vásquez Attending Unavailable Dexter Vásquez Consulting Unavailable Agyepong, Jerad Admitting Unavailable Agyepong, Jerad Attending Unavailable Antonio, Jose Chi Primary Care Unavailable Mike Cardenas Consulting Unavailable Dexter Vásquez Consulting Unavailable Antonio, Jose Chi Primary Care Unavailable Agyepong, Jerad Admitting Unavailable Mike Cardenas Consulting Unavailable Dexter Vásquez Attending Unavailable Antonio, Jose Chi Attending Unavailable Antonio, Jose Chi Primary Care Unavailable Antonio, Jose Chi Referring Unavailable Dirk Osman Attending Unavailable Antonio, Jose Chi Referring Unavailable Antonio, Jose Chi Attending Unavailable Antonio, Jose Chi Referring Unavailable Antonio, Jose Chi Primary Care Unavailable Antonio, Jose Chi Attending Unavailable Antonio, Jose Chi Referring Unavailable Antonio, Jose Chi Primary Care Unavailable Antonio, Jose Chi Attending Unavailable Antonio, Jose Chi Primary Care Unavailable Morgan Billings Attending Unavailable Morgan Billings Attending Unavailable Morgan Billings Attending Unavailable Isiah Lieberman Attending Unavailable Isiah Lieberman Referring Unavailable Antonio, Jose Chi Primary Care Unavailable PROBLEMS PROBLEMS DATE TYPE CONDITION / CODE ATTENDING STATUS SOURCE 01/27/2018 Unknown E55.9 - Vitamin D Antonio, Jose Chi Active [place] deficiency, Community unspecified / Hospital E55.9(ICD-10) Repository 01/27/2018 Unknown R53.83 - Other fatigue Antonio, Jose Chi Active [place] / R53.83(ICD-10) Community Hospital Repository 01/14/2018 Unknown I82.402 - Acute Isiah Lieberman Active [place] embolism and Community thrombosis of Hospital unspecified deep veins Repository of left lower extremity / I82.402(ICD-10) 01/05/2018 Unknown E03.9 - Isiah Lieberman Active [place] Hypothyroidism, Community unspecified / Hospital E03.9(ICD-10) Repository 01/05/2018 Unknown R00.0 - Tachycardia, LiebermanIsiah Active [place] unspecified / Community R00.0(ICD-10) Hospital Repository 01/05/2018 Unknown D68.9 - Coagulation Isiah Lieberman Active [place] defect, unspecified / Community D68.9(ICD-10) Hospital Repository 01/03/2018 Unknown R94.31 - Abnormal Isiah Lieberman Active [place] electrocardiogram Community [ECG] [EKG] / Hospital R94.31(ICD-10) Repository 12/15/2017 Unknown S72.002A - Fracture of [place]onis, Active [place] unspecified part of Dexter [place] Community neck of left femur, Hospital initial encounter for Repository closed fracture / S72.002A(ICD-10) 12/10/2017 Unknown D64.9 - Anemia, Antonio, Jose Chi Active [place] unspecified / Community D64.9(ICD-10) Hospital Repository 12/10/2017 Unknown W19.XXXA - Unspecified Jose Alvarez Chi Active [place] fall, initial Community encounter / Hospital W19.XXXA(ICD-10) Repository 12/03/2017 Unknown Z12.11 - Encounter for [place], Active [place] screening for [facility] malignant neoplasm of Hospital colon / Z12.11(ICD-10) Repository PROCEDURES PROCEDURES No Procedure Records FoundRESULTS RESULTS CBC W/DIFF, AUTOMATED Collected: 01/27/2018 Status: F Source: [place] 1:22 PM [facility] HOSPITAL REPOSITORY Order Comment: CMP,CBCD,TSH,VITD FOR DR ALVAREZ LIVER AND LIPID FOR DR LIEBERMAN TYPE CODE TESTS RESULT OUT OF RANGE REFERENCE UNITS LAB L100.1000 4.4-11.0 K/mm3 Normal WBC 7.8 LAB L100.1200 4.6-6.2 M/mm3 Low RBC 4.50 LAB L100.1300 13.0-16.5 g/dl Normal HGB 13.2 LAB L100.1400 40-54 % Normal HCT 40.9 LAB L100.1500 80-94 fL Normal MCV 90.9 LAB L100.1600 27.0-32.0 pg Normal MCH 29.3 LAB L100.1700 32-36 g/gl Normal MCHC 32.3 LAB L100.1810 11.6-14.6 % Normal RDW CV 13.5 LAB L100.1820 35.1-43.9 fl High RDW SD 45.1 LAB L100.1900 150-450 K/mm3 Normal PLT 229 LAB L100.2000 6.2-12.0 fl Normal MPV 9.2 LAB L100.2100 47-70 % Normal NEUT% 55.7 LAB L100.2200 19-41 % Normal LY% 26.6 LAB L100.2300 0-10 % High MONO% 15.7 LAB L100.2400 0-5 % Normal EO% 1.3 LAB L100.2500 0-1 % Normal BASO% 0.6 LAB L100.2550 0.0-0.9 % Normal IM GRAN % 0.100 Result Comment: IG% - Immature Granulocytes (promyelocytes, myelocytes and metamyelocytes) > 1% indicates that a LEFT SHIFT is Present. LAB L100.2620 2.0-7.7 X10 3/uL Normal Absolute Neut 4.3 LAB L100.2720 0.83-4.51 X10 3/ul Normal Absolute Lymph 2.06 Performed By: #### L100.0100 #### [facility] [address] [place], [address] VITAMIN D,25 HYDROXY Collected: 01/27/2018 Status: F Source: [place] 1:22 PM [facility] REPOSITORY Order Comment: CMP,CBCD,TSH,VITD FOR DR ALVAREZ LIVER AND LIPID FOR DR LIEBERMAN TYPE CODE TESTS RESULT OUT OF RANGE REFERENCE UNITS LAB L506.1000 29.95-100.01 ng/mL Normal Vitamin D 64.1 25-OH Result Comment: Vitamin D 25(OH) Status Range Deficiency <20 ng/mL (50nmol/L) Insuffciency 20 - 30 ng/mL (50 - 75 nmol/L) Sufficiency 30 - 100 ng/mL (75 - 250 nmol/L) Toxicity >100 ng/mL (>250 nmol/L) Performed By: #### L506.1000 #### [facility] [address] [place], [place], [address] COMPREHENSIVE METABOLIC Collected: 01/27/2018 Status: F Source: [place] [facility] 1:21 PM [facility] REPOSITORY Order Comment: CMP,CBCD,TSH,VITD FOR DR ANTONIO YEBOAH AND LIPID FOR DR LIEBERMAN TYPE CODE TESTS RESULT OUT OF RANGE REFERENCE UNITS LAB L501.0100 74-106 mg/dL Normal GLU 86 Result Comment: Please note revised GLUCOSE reference range effective 2017. LAB L501.1000 7-18 mg/dL Normal BUN 9 LAB L501.1100 0.70-1.30 mg/dL Low CREAT,SERUM 0.68 Result Comment: The validity of the calculated GFR AND GFRAA in patients over 70 years has not been determined. Clinical correlation is essential. LAB L501.1110 >60 mL/min Normal EST GFR 128 Result Comment: Non- GFR Calc LAB L501.1115 >60 mL/min Normal EST GFR - AA 155 Result Comment: GFR Calc LAB L501.1300 10-20 RATIO Normal BUN/CRE 13.3 LAB L501.1500 6.4-8.2 g/dL T Normal PROT 8.0 LAB L501.1800 3.2-5.0 g/dL Normal ALB 3.5 LAB L501.1950 2.2-4.2 g/dL High GLOB 4.5 LAB L501.2000 0.9-2.4 RATIO Low A/G 0.8 LAB L501.2200 8.5-10.1 mg/dL CA Normal 8.9 LAB L501.4100 15-37 U/L Normal AST 22 LAB L501.4305 45-117 U/L Normal ALK P 111 LAB L501.4405 16-61 U/L Normal ALT 17 LAB L501.4600 0.20-1.00 mg/dL T Normal BILI 0.50 LAB L501.5300 136-145 mmol/L NA Normal 137 LAB L501.5600 3.5-5.1 mmol/L K Normal 3.8 LAB L501.5900 98-107 mmol/L CL Normal 102 LAB L501.6100 21.0-32.0 mmol/L Normal CO2 28.0 LAB L501.6200 5-15 Normal GAP 7 Performed By: #### L500.4050, L500.4100, L501.4700, L501.9520 #### [facility] [address] [place], [address] LIPID PROFILE Collected: 01/27/2018 Status: F Source: [place] 1:21 PM [facility] REPOSITORY Order Comment: CMP,CBCD,TSH,VITD FOR DR ALVAREZ LIVER AND LIPID FOR DR LIEBERMAN TYPE CODE TESTS RESULT OUT OF RANGE REFERENCE UNITS LAB L501.4900 200 mg/dL Normal CHOL 147 Result Comment: <200 mg/dL Desirable 200-240 mg/dL Borderline >240 mg/dL High Risk LAB L501.5000 mg/dL Normal TRIG 58 Result Comment: The drugs N-Acetylcysteine and Metamizole may falsely depress this assay. Serum Triglycerides Reference Interval Normal <150 mg/dL Borderline high 150 - 199 mg/dL High 200 - 499 mg/dL Very High > or = 500 mg/dL LAB L501.6400 mg/dL Normal HDL 52 Result Comment: The drugs N-Acetylcysteine and Metamizole may falsely depress this assay. Reference Range HDL <40 mg/dL Low HDL Cholesterol HDL >or= 60 mg/dL High HDL Cholesterol LAB L501.6500 0-130 mg/dL Normal LDL 83 LAB L501.6600 5-40 mg/dL Normal VLDL 12 Performed By: #### L500.4050, L500.4100, L501.4700, L501.9520 #### [facility] [address] [place], [address] BILIRUBIN, DIRECT Collected: 01/27/2018 Status: F Source: [place] 1:21 PM [facility] REPOSITORY Order Comment: CMP,CBCD,TSH,VITD FOR DR ALVAREZ LIVER AND LIPID FOR DR LIEBERMAN TYPE CODE TESTS RESULT OUT OF RANGE REFERENCE UNITS LAB L501.4700 0.00-0.30 mg/dL Normal D BILI 0.18 Performed By: #### L500.4050, L500.4100, L501.4700, L501.9520 #### [facility] [address] [place], [address] THYROID STIM HORMONE Collected: 01/27/2018 Status: F Source: [place] (TSH) 1:21 PM [facility] REPOSITORY Order Comment: CMP,CBCD,TSH,VITD FOR DR ALVAREZ LIVER AND LIPID FOR DR LIEBERMAN TYPE CODE TESTS RESULT OUT OF RANGE REFERENCE UNITS LAB L501.9520 0.358-3.74 uIU/mL Normal TSH 1.63 Performed By: #### L500.4050, L500.4100, L501.4700, L501.9520 #### [facility] [address] [place], [address] STRESS TEST ECHO W/ Observed: 01/24/2018 Status: F Source: [place] CONTRAST 9:39 AM [facility] REPOSITORY [facility] [address] [place] [address] Stress Test Echo W/Contrast MR#: [id number] Acct: [id number] Name: MIKE BLANTON Rep #: [id number] : 1960 57 From: Isiah Lieberman MD Primary Care: Antonio LEAVITT,Jose Chi Status: REG CLI Ordering Dr: Isiah Lieberman MD Sex: M C Reason For Study: ARRHYTHMIA Stress Results Protocol: Dobutamine Maximum Predicted HR: 163 bpm Target HR: 139 bpm % Maximum Predicted HR: 90 % DurationHeart Rate Stage (mm:ss) (bpm) BP Dose Comment BASELINE 72 108/73 0.2 ML DEFINITY STAGE 1 3:00 75 104/6410.000.2 ML DEFINITY STAGE 2 3:00 100 101/6920.00 STAGE 3 3:00 131 113/8030.00 STAG 4 2:08 146 / 40.000.2 ML DEFINITY RECOVERY 91 103/72 0.2 ML DEFINITY Stress Duration: 11:08 mm:ss Maximum Stress HR: 146 bpm Baseline Echocardiogram Findings The estimated ejection fraction is 65 %. Stress Echo Wall motion Data Resting WM Intermediate WM Stress WM Resting Wall Motion Wall Motion Stress No regional wall motion No regional wall motion abnormalities noted. abnormalities noted. EKG Data Normal intervals are noted. The patient was titrated from 10 mcg to a maximum of 40 mcg of dobutamine during the stress. The maximum heart rate attained was 146 beats per minute. This was 89% of maximum predicted heart rate. During dobutamine infusion, there were no ST or T wave changes noted to suggest ischemia. No arrhythmias noted. No clinical angina was noted. Interpretation Summary The study was technically difficult. Contrast injection was performed. The estimated ejection fraction is 65 %. Normal, adequate, dobutamine echocardiogram. Negative for ischemia by EKG and echocardiographic criteria. No anginal symptoms noted. No arrhythmias noted. Appropriate blood pressure response to dobutamine. Final LVEF is 75%. Test terminated due to the attainment of target heart rate. Decreased sensitivity due to poor echo windows requiring Definity enhancing agent. No complications. Ordering Physician: Isiah Lieberman MD Referring Physician: Isiah Lieberman Performed By: Angela Merida, HARSH, RVT 01/24/1838 Date Isiah Lieberman MD CC: Isiah Lieberman MD; Jose Alvarez MD Date Dictated: 01/21/18 1042 Date Transcribed: 01/24/18937 Marinator: Signed ECHOCARDIOGRAM COMPLETE Observed: 01/14/2018 Status: F Source: [place] 11:22 AM [facility] REPOSITORY [facility] Cardi[facility] Services [address] [place] [address] Echo Complete 01/14/1854 MR#: [id number] Acct: [id number] Name: MIKE BLANTON Rep #: [id number] : 1960 57 From: Isiah Lieberman MD Attending Dr: Isiah Lieberman MD Status: REG CLI Ordering Dr: Isiah Lieberman MD Date: 01/14/18 Location: [facility] Sex: M C Admitted: Reason For Study: ARRHYTHMIA Procedure This was a 2D Doppler, Color Flow transthoracic echocardiogram. Exam performed in department. Left Ventricle Normal size and thickness. The estimated ejection fraction is 65 %. Stage 1 diastolic dysfunction. No regional wall motion abnormalities noted. Right Ventricle Normal size and thickness. Normal systolic function. Atria Normal left atrium. Normal right atrium. Normal atrial septum. Mitral Valve The mitral valve is structurally normal. No prolapse or stenosis seen. Tricuspid Valve Normal tricuspid valve. Unable to estimate RV systolic pressure due to inadequate jet, pulmonary artery pressure probably normal. Aortic Valve Trisinus/trileaflet aortic valve. Pulmonic Valve Normal pulmonic valve. Trivial pulmonic valve insufficiency. Great Vessels Normal aortic root. Normal arch. Normal inferior vena cava. Inferior vena cava collapse with sniff. Pericardium/Pleural No pericardial effusion. MMode/2D Measurements AND Calculations LVIDd: 3.1 cm IVSd: 0.81 cm Ao root diam: 3.2 cm LVIDs: 2.2 cm LVPWd: 0.83 cm RVDd: 2.8 cm FS: 28.2 % LAV(MOD-bp): 15.3 ml LVAd ap4: 25.3 cm2 SV(MOD-sp4): 37.9 ml LAV(MOD-bp) Indexed: 8.8 ml/m2 EDV(MOD-sp4): 65.4 ml LAV(MOD-sp2): 18.6 ml EDV(sp4-el): 68.9 ml LAV(MOD-sp4): 11.8 ml LVAs ap4: 14.5 cm2 ESV(MOD-sp4): 27.5 ml ESV(sp4-el): 28.4 ml EF(MOD-sp4): 58.0 % EF(sp4-el): 58.8 % SV(sp4-el): 40.5 ml LA A4 area: 7.3 cm2 LA dimension(2D): 2.6 cm RA A4 area: 6.5 cm2 Time Measurements MV dec time: 0.26 sec Doppler Measurements AND Calculations MV E max linh: 59.7 cm/sec Lat Peak E' Linh: 4.4 cm/sec Med Peak E' Linh: 3.6 cm/sec MV A max linh: 78.6 cm/sec E/E' lat: 13.6 E/E' med: 16.5 MV E/A: 0.76 Ao V2 max: 92.6 cm/sec LV V1 max: 76.1 cm/sec PA V2 max: 133.7 cm/sec Ao max P.4 mmHg LV V1 max P.3 mmHg PI end-d linh: 82.0 cm/sec Interpretation Summary The estimated ejection fraction is 65 %. Stage 1 diastolic dysfunction. Unable to estimate RV systolic pressure due to inadequate jet, pulmonary artery pressure probably normal. There is no comparison study available. Ordering Physician: Isiah Lieberman Referring Physician: JOSE ALVAREZ CHI Performed By: Sheyla To RDCS, RVT 01/14/18 112 Date Isiah Lieberman MD CC: Isiah Lieberman MD; Jose Alvarez MD Date Dictated: 01/14/18 0854 Date Transcribed: 01/14/181121 Marinator: Signed CBC-COMPLETE BLOOD CNT Collected: 01/12/2018 Status: F Source: [place] NO DIFF 6:20 AM [facility] REPOSITORY Order Comment: ROOM 406 TYPE CODE TESTS RESULT OUT OF RANGE REFERENCE UNITS LAB L100.1000 4.4-11.0 K/mm3 Normal WBC 8.3 LAB L100.1200 4.6-6.2 M/mm3 Low RBC 3.75 LAB L100.1300 13.0-16.5 g/dl Low HGB 11.2 LAB L100.1400 40-54 % Low HCT 35.5 LAB L100.1500 80-94 fL High MCV 94.7 LAB L100.1600 27.0-32.0 pg Normal MCH 29.9 LAB L100.1700 32-36 g/gl Low MCHC 31.5 LAB L100.1810 11.6-14.6 % Normal RDW CV 14.4 LAB L100.1820 35.1-43.9 fl High RDW SD 47.6 LAB L100.1900 150-450 K/mm3 Normal PLT 422 LAB L100.2000 6.2-12.0 fl Normal MPV 9.0 Performed By: #### L100.0500 #### [facility] [address] [place], [place], [address] BASIC METABOLIC Collected: 01/12/2018 Status: F Source: [place] PROFILE (BMP) 6:20 AM [facility] REPOSITORY Order Comment: ROOM 406 TYPE CODE TESTS RESULT OUT OF RANGE REFERENCE UNITS LAB L501.0100 74-106 mg/dL Normal GLU 84 Result Comment: Please note revised GLUCOSE reference range effective 2017. LAB L501.1000 7-18 mg/dL Normal BUN 13 LAB L501.1100 0.70-1.30 mg/dL Normal CREAT,SERUM 0.77 Result Comment: The validity of the calculated GFR AND GFRAA in patients over 70 years has not been determined. Clinical correlation is essential. LAB L501.1110 >60 mL/min Normal EST GFR 111 Result Comment: Non- GFR Calc LAB L501.1115 >60 mL/min Normal EST GFR - AA 134 Result Comment: GFR Calc LAB L501.1300 10-20 RATIO Normal BUN/CRE 16.9 LAB L501.2200 8.5-10.1 mg/dL CA Normal 8.7 LAB L501.5300 136-145 mmol/L NA Normal 137 LAB L501.5600 3.5-5.1 mmol/L K Normal 4.0 LAB L501.5900 98-107 mmol/L CL Normal 100 LAB L501.6100 21.0-32.0 mmol/L Normal CO2 28.0 LAB L501.6200 5-15 Normal GAP 9 Performed By: #### L500.2500 #### [facility] [address] [place], [address] ONCOLOGY VISIT REPORT Observed: 01/11/2018 Status: F Source: [place] 2:53 PM [facility] REPOSITORY [facility] [address] [place] [address] OFFICE VISIT Date of Service: 01/11/18 1417 MR#: [id number] Acct: [id number] Name: MIKE BLANTON Rep #: [id number] : 1960 From: Ailyn Lau MD Age/Sex: 57/M Location: [facility] Status: Signed - Problem List (1) Hypercoagulable state Status: Acute (2) Deep vein thrombosis (DVT) of left lower extremity Status: Acute - Date of Service Date of Service:: 01/11/18 - Chief Complaint DVT - History of Present Illness Patient is a 57-year-old who on December 13, 2017 underwent right THR for a displaced left subcapital hip fracture and on December 21, 2017 was found to have developed Acute deep vein thrombosis is noted in the left femoral vein. Acute deep vein thrombosis is noted in the left popliteal vein. Acute deep vein thrombosis is noted in the left tibio-peroneal trunk. Acute deep vein thrombosis is noted in the left posterior tibial vein. A limited hypercoagulable panel was obtained and showed negative prothrombin gene mutation but elevated factor VIII level Laboratory Tests Factor VIII Activity 278 H von Willebrand Comment 389 H He was initially treated with Lovenox and currently is on oral Xarelto tolerating treatment without any notable bleeding. Of note since an accidental fracture of the left hip in 2012 patient has had limited ambulation with a walker. He is mentally disabled and is a long-term resident at [facility]. To his knowledge he never had a previous venous thromboembolic disease. - Past Medical/Social History Social History Smoking Status Current every day smoker Review of Systems Cardiovascular:: Reports: Peripheral edema - Left lower extremity. Denies: Chest pain, Palpitations, Dyspnea on exertion, Orthopnea, PND, Shortness of breath Respiratory: Denies: Cough, Hemoptysis, Shortness of Breath, Wheezing Gastrointestinal:: Denies: Abdominal pain, Nausea, Vomiting, Diarrhea, Constipation, Hematochezia Genitourinary: Denies: Dysuria, Hematuria, 15, Flank pain Musculoskeletal:: Reports: - - See HPI - Physical Exam General: - - Patient is mentally disabled, pleasant and friendly, seen in a wheelchair but stated that in the retirement facility is ambulating with a walker (since 2012), ECOG 2 HEENT: Atraumatic, PERRLA, EOMI, Normocephalic Neck:: Supple, Trachea midline. Negative for: JVD, bilateral Cardiac:: Regular rate, Regular rhythm, Normal S1, Normal S2. Negative for: Murmur Lungs: Clear to auscultation, Excusion symmetrical. Negative for: Rhonchi, Wheezes Extremities:: Edema - Left ankle Skin:: Negative for: Rash, Petechiae, Ecchymosis Lymphatics:: Negative for: Cervical lymphadenopathy, Supraclavicular lymphadenopathy Laboratory Data: See HPI Assessment and Plan 57-year-old male with a provoked extensive left lower extremity DVT following left hip fracture and total hip replacement on December 13, 2017. Patient at baseline has limited ambulation with a walker since a prior fracture of the right hip in 2012. He is mentally disabled and is a long-term resident at retirement facility. During his hospitalization in November 2017 a limited hypercoagulable panel was done that revealed an elevated factor VIII level. Factor VIII is an acute phase reactant and the elevation may be merely due to his acute illness. Persistent unexplained elevation of factor VIII as a marker for increased risk for venous thromboembolic disease. Recommendations: 1. Continue systemic anticoagulation for the acute DVT of November 2017 for at least 3 months. This will be by the end of February 2018. 2. Reassess in early March 2018 his functional status and mobility and if he recovers full ambulation to the prior fracture level may consider stopping systemic anticoagulation then and repeat factor VIII level of anticoagulants. 3. If he does not recover full independent ambulation by end of February 2018 he may need longer term anticoagulation possibly long-term for secondary prophylaxis against VTE. Medications: Prescriptions This Visit Medication Instructions Recorded Primary Care Provider: Jose Alvarez Referring Provider: 01/11/18 1453 <Electronically signed by Ailyn Lau MD> Date Ailyn Lau MD Cosigner Signature: Date (if applicable) CC: Morgan Billings MD; Jose Alvarez MD TRANSFER TO [facility] Observed: 01/07/2018 Status: F Source: [facility] 4:00 PM [facility] REPOSITORY [facility] Medical Records Department [address] [place] [address] Transfer to [facility] MR#: [id number] Acct: [id number] Name: ANGIEMIKE Fanny Rep #: [id number] : 1960 57 From: Waqas Solano MD PCP: Jose Alvarez MD, Chi Status: DIS IN [place] [id number] (Patient) (Health Ins. Claim No.) (Day of Discharge to Facility) Certification of patient admission REQUIRED AT TIME OF ADMISSION. I CERTIFY THAT [facility] SERVICES ARE REQUIRED TO BE GIVEN ON AN IN-PATIENT BASIS BECAUSE OF THE ABOVE NAMED PATIENT'S NEED FOR SENIOR LIVING CARE ON A CONTINUING BASIS FOR THE CONDITION(S) FOR WHICH HE/SHE WAS RECEIVING IN-PATIENT HOSPITAL SERVICES PRIOR TO HIS/HER TRANSFER TO [facility]. 01/07/18 1600 <Electronically signed by Waqas Solano MD> Date Waqas Solano MD - Diet 12/15/17 17:36 Diet: Regular Diet Is pt able to select menu?: Yes - Routine Orders/Code Status Suppository Type: senna docusate Routine Lab Work: CBC, BMP, INR, - - PT/Aptt - Wound(s) left hip Wound Type: Surgical Incision RUE Wound Type: Abrasion left knee proximal Wound Type: Abrasion left knee distal Wound Type: Abrasion LAC Wound Type: IV WOUND rt eyebrow Wound Type: Laceration - Therapies Weight Bearing: Weight bearing as tolerated Extremity Affected:: Left Lower Physical Therapy: Eval and Treat Occupational Therapy: Eval and Treat - Allergies/Procedures Done in Hospital Allergies/Adverse Reactions: Allergies No Known Allergies Allergy (Verified 12/12/17 17:43) Procedures: None - Type of Care/Length of Stay Estimated LOS: More Than 30 Days Type of Care Needed: Skilled Rehab Potential: Fair Prognosis: Good - Additional Orders/Day of Discharge Day of Discharge: 12/31/17 - Dietary and Speech Recommendations Dietitian Recommendations/Changes: If pt PO fails at meals, consider ONS other than Ensure Enlive- per pt it upsets his stomach. Eating fine at current time, will DC supplement. - Follow Up Care Primary Care Physician: Jose Alvarez Chi, MD [Primary Care Provider] - Please Follow Up With: Stevo Walden DO Please Follow Up With: Ailyn Lau MD Please Follow Up With: Yoni Vogel MD 01/07/18 1600 <Electronically signed by Waqas Solano MD> Date Waqas Solano MD CC: Dexter Vásquez MD; Jose Alvarez MD Signed DISCHARGE SUMMARY Observed: 01/07/2018 Status: F Source: [place] 4:00 PM [facility] REPOSITORY [facility] Medical Records Department [address] [place] [address] Discharge Summary 12/30/17 1120 MR#: [id number] Acct: [id number] Name: MIKE BLANTON Rep #: [id number] : 1960 57 From: Waqas Solano MD PCP: Antonio LEAVITT,Jose Leonardo Status: DIS IN Y Location: [id number] Rehab Discharge Summary DATE OF ADMISSION: 12/15/17 DATE OF DISCHARGE: 12/31/2017 - Rehab Diagnosis debility s/p mechanical fall and total left hip replacement for a left impacted nondisplaced femur neck fracture Subjective: No issues overnight except he had some irregular heart beat with tachycardia overnight for which hospitalist was contacted and patient was given metoprolol, this morning patient was in sinus rhythm with HR of around 85/min, Care discussed with nursing staff. EKG was not obtained by hospitalist overnight. At present his rate is regular and will have cardiology follow up as outpatient. - Physical Exam General: Alert HEENT: Normocephalic Neck: Supple Lungs: Normal air movement Cardiovascular: Normal S1, Normal S2 Abdomen: Bowel Sounds Present Extremities: No cyanosis Neurological: - - consious, alert, AoAx3, CN 2-12 grossly intact, moves all 4 extremities, denies any sensory loss, no cerebellar signs, Reflexes + B/L B/S/T/K/A, gait deferred, mild increased tone both UE. Psych/Mental Status: Normal Affect Vital Signs Temp Pulse Resp BP Pulse Ox 98.2 F 108 H 20 H 108/67 95 12/30/17 08:00 12/30/17 08:00 12/30/17 08:00 12/30/17 08:00 12/30/17 08:00 Oxygen Delivery Method Room Air Weight: 67 kg Body Mass Index (BMI) 23.6 Intake and Output for Last 24 Hours Intake Total 480 / 480 240 / 240 240 / 240 Balance 480 / 480 240 / 240 240 / 240 Microbiology Past 72 Hours 12/27/17 15:00 Urine Culture - Final Urine, Clean Catch Staphylococcus epidermidis Discharge Diet: No Restrictions Discharge Activity: May Not Drive, Use Walker Weight Bearing Status: Weight bearing as tolerated Call your doctor if your incision/area has: Continuous Slow Oozing, Sudden Increased Bleeding, Increased Pain/ Swelling, Increased Redness, Foul Smelling Discharge, Swelling at the incision site Call your doctor if you observe: Fever of 101 or Higher, Coldness, Increased Pain, Numbness or Tingling, Change in Color, Inability to urinate, Inability to have a bowel movement, Using more than one pad per hour, Shortness of breath, Dizziness, Fainting spells, Swelling in the ankles, Chest pain, Prolonged hiccoughing, Increased palpitations (irregular heartbeat), Calf discomfort, Uncontrolled pain Cleanse incision/area with: Soap AND Water Home Medications: Medications to take at Discharge atorvastatin 40 mg tablet 40 mg PO QHS 12/03/17 levothyroxine 50 mcg capsule 50 mcg PO DAILY 12/03/17 mirtazapine 30 mg tablet 15 mg PO DAILY 12/03/17 tamsulosin 0.4 mg capsule 0.4 mg PO DAILY 12/03/17 Ergocalciferol [Vitamin D] 50,000 unit PO Q7D 12/12/17 Nicotine [Nicoderm Cq] 21 mg TRANSDERM. DAILY 12/15/17 Ciprofloxacin [Cipro] 500 mg PO DAILY tablet 12/30/17 Divalproex Sodium [Depakote] 500 mg PO BID tablet 12/30/17 Enoxaparin [Lovenox] 70 mg SC Q12@0600,1800 syringe 12/30/17 Oxycodone [Oxyir] 5 mg PO DAILY@0600 5 Days #5 tablet 12/30/17 Oxycodone [Oxyir] 5 mg PO Q6H PRN PRN 3 Days #15 tablet 12/30/17 levETIRAcetam tablet [Keppra tablet] 500 mg PO BID tablet 12/30/17 Metoprolol Tartrate [Lopressor (beta karishma)] 25 mg PO BID tablet 12/31/17 Primary Care Physician: Jose Alvarez Chi, MD [Primary Care Provider] - Please Follow Up With: Stevo Walden, Please Follow Up With: Ailyn Lau MD Disposition: [facility] facility Minutes spent on discharge:: 40 Patient Condition:: Fair Rehab Course 57 yr M with [facility] HLD, H/O seizures, ? PD, hypothyroidism, BPH admitted to [facility] on 12/16/17 with debility s/p mechanical fall and total left hip replacement for a left impacted nondisplaced femur neck fracture by Dr. Walden, for > 3hrs therapy daily with the goal of returning back home near or at his prior level of functional independence. Had been on Dilantin and Depakote for seizure precautions at home, following admission he was on ASA 325 mg BID for DVT prophylaxis per Dr. Walden's recommendation but later on 12/22/17 he was found to have left LE DVT and hypercoagulability work up showed increased factor VIII activity and high von Willebrand , hence was started on Lovenox [address] Walden's office was informed about the same, he had a seizure event on 12/27/17, had CT head which reported nothing acute, he was loaded with Keppra and since his Dilantin level was low, it was discontinued and he was started on Keppra, was found on the floor and had hip and pelvis Xray which did not show any new fractures, also complained of lower back pain and had X ray lumbar spine which reported to show loss of normal lumbar lordosis, stable minimal loss of right of the superior endplate of T12 vertebrae. Patient had increased WBC and low NA during his rehab stay for which he was seen by hospitalist and recommendations followed. He had irregular heart beat overnight and hospitalist contacted who started him on metoprolol but did not get EKG and he had normal rhythm this morning (12/31/17) and recommend cardiology consult as outpatient. He has been tolerating therapies well since admission but PT and OT felt he would benefit from further therapy and monitoring for which he will be transferred to SNF. Meaningful Use Info Meaningful Use Diagnoses (Choose all that apply): None applicable 01/07/18 1600 <Electronically signed by Waqas Solano MD> Date Waqas Solano MD Cosigner Signature (if applicable): Date CC: Moose Solano MD; Jose Alvarez MD Signed CBC-COMPLETE BLOOD CNT Collected: 01/05/2018 Status: F Source: [facility] NO DIFF 6:20 AM [facility] REPOSITORY Order Comment: 406 TYPE CODE TESTS RESULT OUT OF RANGE REFERENCE UNITS LAB L100.1000 4.4-11.0 K/mm3 Normal WBC 8.3 LAB L100.1200 4.6-6.2 M/mm3 Low RBC 2.96 LAB L100.1300 13.0-16.5 g/dl Low HGB 8.9 LAB L100.1400 40-54 % Low HCT 28.3 LAB L100.1500 80-94 fL High MCV 95.6 LAB L100.1600 27.0-32.0 pg Normal MCH 30.1 LAB L100.1700 32-36 g/gl Low MCHC 31.4 LAB L100.1810 11.6-14.6 % High RDW CV 15.0 LAB L100.1820 35.1-43.9 fl High RDW SD 50.4 LAB L100.1900 150-450 K/mm3 Normal PLT 411 LAB L100.2000 6.2-12.0 fl Normal MPV 9.1 Performed By: #### L100.0500 #### [facility] [address] [place], [address] BASIC METABOLIC Collected: 01/05/2018 Status: F Source: [place] PROFILE (BMP) 6:20 AM [facility] REPOSITORY Order Comment: 406 TYPE CODE TESTS RESULT OUT OF RANGE REFERENCE UNITS LAB L501.0100 74-106 mg/dL Normal GLU 104 Result Comment: Fasting Glucose result from 100 to 125 mg/dL suggests IMPAIRED HOMEOSTASIS per A.D.A. criteria. Please note revised GLUCOSE reference range effective 2017. LAB L501.1000 7-18 mg/dL Normal BUN 13 LAB L501.1100 0.70-1.30 mg/dL Low CREAT,SERUM 0.62 Result Comment: The validity of the calculated GFR AND GFRAA in patients over 70 years has not been determined. Clinical correlation is essential. LAB L501.1110 >60 mL/min Normal EST GFR 143 Result Comment: Non- GFR Calc LAB L501.1115 >60 mL/min Normal EST GFR - AA 172 Result Comment: GFR Calc LAB L501.1300 10-20 RATIO High BUN/CRE 21.0 LAB L501.2200 8.5-10.1 mg/dL Low CA 8.2 LAB L501.5300 136-145 mmol/L NA Normal 139 LAB L501.5600 3.5-5.1 mmol/L K Normal 3.8 LAB L501.5900 98-107 mmol/L CL Normal 101 LAB L501.6100 21.0-32.0 mmol/L Normal CO2 29.0 LAB L501.6200 5-15 Normal GAP 9 Performed By: #### L500.2500, L500.3400, L500.4100 #### [facility] [address] [place], [place], [id number] LIVER PROFILE Collected: 01/05/2018 Status: F Source: [place] 6:20 AM [facility] REPOSITORY Order Comment: 406 TYPE CODE TESTS RESULT OUT OF RANGE REFERENCE UNITS LAB L501.1500 6.4-8.2 g/dL Normal T PROT 6.7 LAB L501.1800 3.2-5.0 g/dL Low ALB 2.6 LAB L501.1950 2.2-4.2 g/dL Normal GLOB 4.1 LAB L501.4100 15-37 U/L Normal AST 17 LAB L501.4305 45-117 U/L High ALK P 118 LAB L501.4405 16-61 U/L Normal ALT 20 LAB L501.4600 0.20-1.00 mg/dL Normal T BILI 0.40 LAB L501.4700 0.00-0.30 mg/dL Normal D BILI 0.12 Performed By: #### L500.2500, L500.3400, L500.4100 #### [facility] [address] [place], [place], [address] LIPID PROFILE Collected: 01/05/2018 Status: F Source: [place] 6:20 AM [facility] REPOSITORY Order Comment: 406 TYPE CODE TESTS RESULT OUT OF RANGE REFERENCE UNITS LAB L501.4900 200 mg/dL Normal CHOL 136 Result Comment: <200 mg/dL Desirable 200-240 mg/dL Borderline >240 mg/dL High Risk LAB L501.5000 mg/dL Normal TRIG 72 Result Comment: The drugs N-Acetylcysteine and Metamizole may falsely depress this assay. Serum Triglycerides Reference Interval Normal <150 mg/dL Borderline high 150 - 199 mg/dL High 200 - 499 mg/dL Very High > or = 500 mg/dL LAB L501.6400 mg/dL Normal HDL 41 Result Comment: The drugs N-Acetylcysteine and Metamizole may falsely depress this assay. Reference Range HDL <40 mg/dL Low HDL Cholesterol HDL >or= 60 mg/dL High HDL Cholesterol LAB L501.6500 0-130 mg/dL Normal LDL 81 LAB L501.6600 5-40 mg/dL Normal VLDL 14 Performed By: #### L500.2500, L500.3400, L500.4100 #### [facility] [address] [place], [address] CARDIOLOGY VISIT Observed: 01/04/2018 Status: F Source: [place] REPORT 3:41 PM [facility] REPOSITORY [facility] [address] [place] [address] OFFICE VISIT Date of Service: 01/04/18 MR#: [id number] Acct: [id number] Name: MIKE BLANTON Rep #: [id number] : 1960 Provider: Isiah Lieberman MD Age/Sex: 57/M Location: [facility] Status: Signed HPI HPI Chief Complaint: Tachycardia Details: MIKE BLANTON, is a 57 M who presents to the office today for follow-up of tachycardia. He does have a history of hypertension, hyperlipidemia, seizure disorder on Keppra, parkinsonian symptoms, and underwent Total Left Hip Replacement for a left impacted nondisplaced fracture with Dr. Walden in November 2017. Patient states that he slipped on the floor and fell down although it says in a history that he has had multiple falls in the past. At that time the patient was found to have positive blood cultures for staph epi, was placed on Cipro therapy. He was then transferred to a rehab center. During his hospital stay he was found to have sinus tachycardia. In addition, the patient was found to have a DVT, and placed on initially Lovenox therapy and switched to Xarelto. He was also found to have a clotting disorder as well increased factor VIII activity and high von Willebrand factor. Patient is currently in a wheelchair, residing in [facility] for rehabilitation. He appears to have some MRDD. In our office today's blood pressure is 90/60, pulse is 96 and regular. Physical exam demonstrates regular rate and rhythm, normal S1/S2, no S3 or S4. He has some subtle edema in his left leg. EKG dated 12/14/17 showed normal sinus rhythm with right bundle branch block, no acute changes. Intake Vital Signs01/04/18 Height 5 ft 6 in 01/04/18 Weight: 139 lb 01/04/18 Body Mass Index (BMI) 22.4 01/04/18 Blood Pressure 90/60 Intake Visit Reasons: TACHY IN TCU,listening to heart no ekg, Xiomara Aids Counselor Required: No Accompanied by: Caregiver Is patient in pain?: No Allergies No Known Allergies Allergy (Verified 01/04/18 15:18) Medications atorvastatin 40 mg tablet 40 mg PO QHS 12/03/17 [History Confirmed 01/04/18] levothyroxine 50 mcg capsule 50 mcg PO DAILY 12/03/17 [History Confirmed 01/04/18] mirtazapine 30 mg tablet 15 mg PO DAILY 12/03/17 [History Confirmed 01/04/18] tamsulosin 0.4 mg capsule 0.4 mg PO DAILY 12/03/17 [History Confirmed 01/04/18] Ergocalciferol [Vitamin D] 50,000 unit PO Q7D 12/12/17 [History Confirmed 01/04/18] Nicotine [Nicoderm Cq] 21 mg TRANSDERM. DAILY 12/15/17 [History Confirmed 01/04/18] Ciprofloxacin [Cipro] 500 mg PO DAILY tab 12/30/17 [Rx Confirmed 01/04/18] Divalproex Sodium [Depakote] 500 mg PO BID tab 12/30/17 [Rx Confirmed 01/04/18] levETIRAcetam tablet [Keppra tablet] 500 mg PO BID tab 12/30/17 [Rx Confirmed 01/04/18] Metoprolol Tartrate [Lopressor (beta karishma)] 25 mg PO BID tab 12/31/17 [Rx Confirmed 01/04/18] oxycodone 5 mg tablet 5 mg PO .COMPLEX 01/04/18 [History Confirmed 01/04/18] rivaroxaban 20 mg tablet 20 mg PO DAILY 01/04/18 [History Confirmed 01/04/18] [facility] Medical History Deep vein thrombosis (DVT) of left lower extremity (Acute) Blood clotting disorder (Chronic) Femur fracture, left (Acute) Hypothyroidism (Chronic) Tachycardia (Acute) Seizure disorder (Chronic) Parkinson disease (Chronic) BPH (benign prostatic hyperplasia) (Chronic) Surgical History S/P hip replacement (Acute) Family History Mother Breast cancer Father Mouth cancer Social History Smoking Status: Current every day smoker alcohol intake: never ROS Const Const: Positive for other (Referred by Dr. Alvarez in TCU for episode of tachycardia, abn ekg); negative for fatigue, weakness, body ache, fever(s), headache(s), chills, frequent falls, night sweats, daytime sleepiness, difficulty sleeping, excessive sweating, weight gain, weight loss, increased appetite, poor appetite or anorexia Eyes Eyes: Negative for blind spots, loss of peripheral vision, transient loss of vision, blurry vision, change in vision, double vision, floaters, tunnel vision or other ENT ENT: Positive for balance problems (frequent falls); negative for headache(s), dizziness, hearing loss, tinnitus, Nosebleed/epistaxis, post nasal drip, lip swelling, tongue swelling, bleeding gums, hoarseness, neck pain, dry mouth or other Cardio Chest Pain: No Palpitations: No (He has not feel his heart racing at the time he had tachycardia) Edema: Left (Had fx left hip and DVT) Muscle aches with walking: None Resp Respiratory: Negative for SOB with activity, SOB at rest, SOB orthopnea\SOB lying down, Cough, Coughing up blood/hemoptysis, chest congestion, pain on inspiration, snoring, stridor, wheezing, crackles, paroxysmal nocturnal dyspnea or other GI GI: Negative nausea, vomiting, heartburn, constipation, belching, bloating, cramping, vomiting blood/hematemesis, bright, red blood in stools, black,tarry stools, loose stools, Difficulty Swallowing or other : Negative for hematuria, frequent nighttime urination/ nocturia, erectile dysfunction or abnormal vaginal bleeding Musc Musc: Positive for balance problems (frequent falls) and muscle weakness; negative for muscle aches/ myalgia or joint pain Skin Skin: Negative redness, non-healing lesions, rash, unusual bruising, skin ulcer, wounds, jaundice or other Neuro Neuro: Negative for weakness, headache(s), frequent falls, blurry vision, double vision, dizziness, lightheadedness, near syncope, syncope, orthostatic symptoms, confusion, memory loss, restless legs, vertigo, seizures, lack of coordination or other Sohail Hematologic/Lymphatic: Negative for easy bleeding, easy bruising, enlarged lymph nodes or other Endo Endo: Negative for fatigue, excessive sweating, cold intolerance, heat intolerance, flushing, increased thirst/drinking, increased hunger, hair loss, hair growth or other Psych Psych: Negative for anxiety, depression, thoughts of harming anyone, thoughts of harming yourself, visual hallucinations, panic attacks or audible hallucinations Allergy Allergy/Immunology: Negative for lip swelling, Negative for tongue swelling, Negative for rash, Negative for throat swelling, Negative for hives Cardiology Exam Const Appearance: cooperative, healthy appearing and no acute distress Nutritional Appearance: well nourished Orientation: alert, oriented x3 and oriented to person Head Head: normal to inspection, atraumatic and normocephalic Nose: external nose normal Face and Sinus: face symmetric Mouth: oral mucosae normal Eyes General: appearance normal, both eyes and all related structures Eyelids: eyelids normal Conjunctivae: conjunctivae normal Pupils: PERRL and normal by confrontation EOM: EOM intact bilaterally Neck Neck: normal visual inspection and full ROM Carotids: normal carotid upstroke Chest Chest inspection: normal inspection of the chest Auscultation: Bilateral: Clear to Auscultation Cardio Palpation: normal PMI Rate: regular rate Rhythm: regular rhythm Heart sounds: S1 normal and S2 normal GI GI: normal to inspection, no hepatosplenomegaly and bowel sounds present Neuro General: alert, oriented x3, awake, CN's II-XI intact bilaterally and moves all extremities Skin Skin: no rashes or lesions noted Extremities Pulses: Normal: Right Femoral Pulse, Left Femoral Pulse, Right Dorsalis Pedis Pulse, Left Dorsalis Pedis Pulse, Right Posterior Tibial Pulse, Left Posterior Tibial Pulse, Right Radial Pulse, Left Radial Pulse Lower Extremity Edema: None: Bilateral Psych Psychological: normal affect Assessment AND Plan 1. Deep vein thrombosis (DVT) of left lower extremity I82.402 Plan 1. DVT: The patient was found to have an acute DVT as a consequence of his recent mechanical fall and hip fracture. Recommended to continue anticoagulation therapy for at least 3 months time and preferably longer if he has a hypercoagulable predisposition for DVTs. Patient may require a complete hypercoagulable workup once he is completely off of anticoagulation therapy and is ambulating well. It appears that prior to his fall and hip fracture, he appeared to have multiple falls in the past making long-term anticoagulations somewhat problematic. The patient may require switch over to Coumadin in case he has a fall in the future which would mandate reversal of his Coumadin. Orders Orders: 2. Tachycardia R00.[address] on 12/12/17 neg for PE but it was done day of leg fx in ER, looking for rib fx Plan 2. Tachycardia: The patient was found to have incidental sinus tachycardia while he was convalescing in the hospital. He was placed on beta-karishma therapy with good results. His heart rate is well controlled. He does have an abnormal EKG with a right bundle branch block and a positive family history of coronary disease in both his mother and father. I recommend the patient undergo a 2D echo with Doppler as well as a debridement echocardiogram for cardiac risk stratification, as well as a lipid profile for further risk stratification. Continue Lipitor for now. 3. Return office in 6 months. This note was generated using a voice recognition system and there may be incorrect words, spelling or punctuation that were not noted when reviewing the office note prior to saving. Orders Orders: Plan Detail Other Orders Orders: Other Medications New: Discontinued: Follow Up +6M (Andrea) Coding Level of Care Code Off vis,new,level 4 Diagnoses Deep vein thrombosis (DVT) of left lower extremity I82.402 Tachycardia R00.0 Coding Level of Care Code Off vis,new,level 4 Diagnoses Deep vein thrombosis (DVT) of left lower extremity I82.402 Tachycardia R00.0 01/04/18 1541 <Electronically signed by Isiah Lieberman MD> Date Isiah [facility] MD [facility] Signature: Date (if applicable) CC: Jose Alvarez MD CBC-COMPLETE BLOOD CNT Collected: 01/03/2018 Status: F Source: [place] NO DIFF 5:15 AM [facility] REPOSITORY Order Comment: 406 TYPE CODE TESTS RESULT OUT OF RANGE REFERENCE UNITS LAB L100.1000 4.4-11.0 K/mm3 Normal WBC 8.5 LAB L100.1200 4.6-6.2 M/mm3 Low RBC 3.16 LAB L100.1300 13.0-16.5 g/dl Low HGB 9.6 LAB L100.1400 40-54 % Low HCT 30.0 LAB L100.1500 80-94 fL High MCV 94.9 LAB L100.1600 27.0-32.0 pg Normal MCH 30.4 LAB L100.1700 32-36 g/gl Normal MCHC 32.0 LAB L100.1810 11.6-14.6 % High RDW CV 15.1 LAB L100.1820 35.1-43.9 fl High RDW SD 52.4 LAB L100.1900 150-450 K/mm3 Normal PLT 427 LAB L100.2000 6.2-12.0 fl Normal MPV 9.3 Performed By: #### L100.0500 #### [facility] [address] [facility]. [place], [place], [id number] PROTHROMBIN TIME W/INR Collected: 01/03/2018 Status: F Source: DELLA 5:15 AM [facility] REPOSITORY Order Comment: 406 TYPE CODE TESTS RESULT OUT OF RANGE REFERENCE UNITS LAB L300.4150 11.7-14.9 SECONDS High PROTIME 20.2 LAB L300.4200 Normal INR 1.7 Performed By: #### L300.3900 #### [facility] [address] [facility]. [place], [place], [address] BASIC METABOLIC Collected: 01/03/2018 Status: F Source: [place]A PROFILE (BMP) 5:15 AM [facility] REPOSITORY Order Comment: 406 TYPE CODE TESTS RESULT OUT OF RANGE REFERENCE UNITS LAB L501.0100 74-106 mg/dL Normal GLU 81 Result Comment: Please note revised GLUCOSE reference range effective 2017. LAB L501.1000 7-18 mg/dL Normal BUN 9 LAB L501.1100 0.70-1.30 mg/dL Low CREAT,SERUM 0.61 Result Comment: The validity of the calculated GFR AND GFRAA in patients over 70 years has not been determined. Clinical correlation is essential. LAB L501.1110 >60 mL/min Normal EST GFR 144 Result Comment: Non- GFR Calc LAB L501.1115 >60 mL/min Normal EST GFR - AA 175 Result Comment: GFR Calc LAB L501.1300 10-20 RATIO Normal BUN/CRE 14.7 LAB L501.2200 8.5-10.1 mg/dL CA Normal 8.6 LAB L501.5300 136-145 mmol/L NA Normal 136 LAB L501.5600 3.5-5.1 mmol/L Low K 3.2 LAB L501.5900 98-107 mmol/L Low CL 97 LAB L501.6100 21.0-32.0 mmol/L Normal CO2 30.0 LAB L501.6200 5-15 Normal GAP 9 Performed By: #### L500.2500 #### [facility] [address] [place], [place], [address] CBC W/DIFF, AUTOMATED Collected: 12/30/2017 Status: F Source: [place] 1:00 PM [facility] REPOSITORY TYPE CODE TESTS RESULT OUT OF RANGE REFERENCE UNITS LAB L100.1000 4.4-11.0 K/mm3 High WBC 14.2 LAB L100.1200 4.6-6.2 M/mm3 Low RBC 3.45 LAB L100.1300 13.0-16.5 g/dl Low HGB 10.5 LAB L100.1400 40-54 % Low HCT 32.5 LAB L100.1500 80-94 fL High MCV 94.2 LAB L100.1600 27.0-32.0 pg Normal MCH 30.4 LAB L100.1700 32-36 g/gl Normal MCHC 32.3 LAB L100.1810 11.6-14.6 % High RDW CV 15.4 LAB L100.1820 35.1-43.9 fl High RDW SD 52.6 LAB L100.1900 150-450 K/mm3 High PLT 484 LAB L100.2000 6.2-12.0 fl Normal MPV 9.1 LAB L100.2100 47-70 % Normal NEUT% 65.5 LAB L100.2200 19-41 % Low LY% 18.1 LAB L100.2300 0-10 % High MONO% 14.8 LAB L100.2400 0-5 % Normal EO% 1.0 LAB L100.2500 0-1 % Normal BASO% 0.4 LAB L100.2550 0.0-0.9 % Normal IM GRAN % 0.200 Result Comment: IG% - Immature Granulocytes (promyelocytes, myelocytes and metamyelocytes) > 1% indicates that a LEFT SHIFT is Present. LAB L100.2620 2.0-7.7 X10 3/uL High Absolute Neut 9.3 LAB L100.2720 0.83-4.51 X10 3/ul Normal Absolute Lymph 2.57 Performed By: #### L100.0100 #### [facility] [address] [place], [address] COMPREHENSIVE METABOLIC Collected: 12/30/2017 Status: F Source: [facility] 1:00 PM [facility] REPOSITORY TYPE CODE TESTS RESULT OUT OF RANGE REFERENCE UNITS LAB L501.0100 74-106 mg/dL High GLU 114 Result Comment: Fasting Glucose result from 100 to 125 mg/dL suggests IMPAIRED HOMEOSTASIS per A.D.A. criteria. Please note revised GLUCOSE reference range effective 2017. LAB L501.1000 7-18 mg/dL Normal BUN 8 LAB L501.1100 0.70-1.30 mg/dL Normal CREAT,SERUM 0.72 Result Comment: The validity of the calculated GFR AND GFRAA in patients over 70 years has not been determined. Clinical correlation is essential. LAB L501.1110 >60 mL/min Normal EST GFR 120 Result Comment: Non- GFR Calc LAB L501.1115 >60 mL/min Normal EST GFR - AA 145 Result Comment: GFR Calc LAB L501.1255 ml/min Normal Estimated CRCL 107.27 LAB L501.1300 10-20 RATIO BUN/CRE Normal 11.1 LAB L501.1500 6.4-8. g/dL High 2 T PROT 8.6 LAB L501.1800 3.2-5. g/dL 0 ALB Normal 3.3 LAB L501.1950 2.2-4. g/dL High 2 GLOB 5.3 LAB L501.2000 0.9-2. RATIO Low 4 A/G 0.6 LAB L501.2200 8.5-10 mg/dL .1 CA Normal 9.0 LAB L501.4100 15-37 U/L AST Normal 24 LAB L501.4305 45-117 U/L ALK P Normal 117 LAB L501.4405 16-61 U/L ALT Normal 21 LAB L501.4600 0.20-1 mg/dL .00 T BILI Normal 0.60 LAB L501.5300 136-14 mmol/L Low 5 NA 130 LAB L501.5600 3.5-5. mmol/L Low 1 K 3.4 LAB L501.5900 98-107 mmol/L Low CL 92 LAB L501.6100 21.0-3 mmol/L 2.0 CO2 Normal 27.0 LAB L501.6200 5-15 GAP Normal 11 Performed By: #### L500.4050 #### [facility] [address] [facility] [place], [address] LUMBAR SPINE 2 OR 3 Observed: 12/29/2017 Status: F Source: [place] VIEWS 11:23 AM [facility] REPOSITORY [facility] Imaging Services [address] [place] [address] Lumbar Spine 2 or 3 Views MR#: [id number] Acct: [id number] Name: MIKE BLANTON Rep #: [id number] : 1960 M 57 From: Bernard Pettit MD PCP: Antonio LEAVITT,Jose Chi Status: ADM IN Study: Lumbar Spine 2 or 3 Views Date of Exam: 12/29/17 Exam# [id number] Ordering Dr: Nato Christensen MD STUDY: X-RAY - LUMBAR SPINE REASON FOR EXAM: Male, 57 years old. Low back pain. Recent hip surgery. TECHNIQUE: 3 view(s) of the lumbar spine were obtained. COMPARISON: Comparison is made with prior examination dated December 11, 2007. FINDINGS: There is straightening of the normal lumbar lordosis. There is no substantial scoliosis. There is a normal alignment of the vertebrae. Stable loss of height of the superior endplate of the T12 vertebrae. Normal disc space heights. The patient is status post bilateral total hip replacement. There is atherosclerotic calcification of the abdominal aorta without a demonstrated aneurysm. RAD/Lumbar Spine 2 or 3 Views IMPRESSION: Loss of the normal lumbar lordosis. Stable minimal loss of right of the superior endplate of the T12 vertebrae. Electronically Signed: Bernard Pettit MD at 13:40 EST Tel [phone], Service support , CC: Nato Christensen MD; Jose Alvarez MD Marinator: Signed HIP, UNI W/ PELVIS Observed: 12/27/2017 Status: F Source: [place] 2-3 VIEWS 6:00 PM [facility] REPOSITORY [facility] Imaging Services [address] [place] [address] HIP, UNI W/ Pelvis 2-3 Views MR#: [id number] Acct: [id number] Name: MIKE BLANTON Rep #: [id number] : 1960 57 From: Mazin Martin DO PCP: Jose Alvarez MD, Chi Status: ADM IN Study: HIP, UNI W/ Pelvis 2-3 Views Date of Exam: 12/27/17 Exam# [id number] Ordering Dr: Nato Christensen MD STUDY: X-RAY - PELVIS AND LEFT HIP REASON FOR EXAM: Male, 57 years old. Fall. Rotation of the lower extremity. History of hip replacement a few weeks ago. TECHNIQUE: Radiological exam, hip, unilateral, with pelvis when performed; 2 or 3 views. COMPARISON: Left hip, December 13, 2017. FINDINGS: There is a non-specific bowel gas pattern. Normal visualized soft tissue structures. There are multiple calcified phleboliths. Normal bilateral iliac wings, sacroiliac joints and visualized sacrum. Normal bilateral superior and inferior pubic rami. Normal pubic symphysis. Normal bilateral ischial tuberosities. There is a stable right hip replacement. There is a left total hip arthroplasty. There is no loosening of the surrounding bone. There is no evidence of osseous fracture. The soft tissue air and overlying skin clips are no longer present. Normal hip joint. RAD/HIP, UNI W/ Pelvis 2-3 Views IMPRESSION: 1. Left artificial hip without evidence of acute abnormality or interval change. 2. No changes out of the pelvis and right hip. Electronically Signed: Mazin Martin DO at 18:31 EST Tel [phone], Service support , CC: Nato Christensen MD; Jose Alvarez MD Marinator: Signed BRAIN/HEAD WITHOUT Observed: 12/27/2017 Status: F Source: [place] CONTRAST 5:59 PM [facility] REPOSITORY [facility] Imaging Services [address] [place] [address] Brain/Head without Contrast MR#: [id number] Acct: [id number] Name: MIKE BLANTON Rep #: [id number] : 1960 57 From: Mazin Martin DO PCP: Jose Alvarez MD, Chi Status: ADM IN Study: Brain/Head without Contrast Date of Exam: 12/27/17 Exam# [id number] Ordering Dr: Nato Christensen MD STUDY: CT BRAIN WITHOUT CONTRAST REASON FOR EXAM: Male, 57 years old. Face first fall. Patient on Lovenox. 2 Parkinson's disease. RADIATION DOSAGE (If Supplied By Facility): CTDIvol = ( 44.99 ) mGy, DLP = ( 796.11 ) mGycm TECHNIQUE: Transaxial CT imaging of the brain was performed without administration of intravenous contrast material. Individualized dose optimization techniques were used for this CT. COMPARISON: December 01, 2017. FINDINGS: Normal soft tissue structures. Normal calvarium. There is deformity of the nasal bones which is a chronic abnormality. There is mild cerebral atrophy with widening of the extra- axial spaces and ventricular dilatation. There are areas of decreased attenuation within the white matter tracts of the supratentorial brain, consistent with microvascular disease changes. Normal basal ganglia and thalami. Normal brainstem. There is mild cerebellar atrophy. There is no intracranial hemorrhage. There are no findings of an acute ischemic infarction. Normal visualized paranasal sinuses. CT/Brain/Head without Contrast IMPRESSION: Chronic involutional changes without evidence of acute intracranial or calvarial abnormality. There is no major interval change. Electronically Signed: Mazin Martin DO at 18:19 EST Tel [phone], Service support , CC: Nato Christensen MD; Jose Alvarez MD Marinator: Signed URINALYSIS, COMPLETE Collected: 12/27/2017 Status: F Source: [place] 3:00 PM [facility] REPOSITORY Order Comment: Order Date: 12/27/17 How was Urine Obtained? LABORER TIN CAN TO SPECIFY TYPE CODE TESTS RESULT OUT OF RANGE REFERENCE UNITS LAB L400.3000 Yellow COLOR Normal Yellow LAB L400.3050 Clear Normal CLARITY Clear LAB L400.3200 Normal mg/dl Normal GLUCOSE, UR Normal LAB L400.3300 Negative mg/dL Normal BILIRUBIN URINE Negative LAB L400.3400 Negative mg/dl High 5 KETONE UR LAB L400.3465 1.002-1.030 Normal SP.GR. DIPSTX 1.005 LAB L400.3550 5.0 - 8.0 pH UR Normal 7.0 LAB L400.3600 Negative mg/dl PROT Normal DIPSTX Negative LAB L400.3700 Normal mg/dl Normal UROBILI Normal LAB L400.3750 Negative High NITRITE UR Positive LAB L400.3780 Negative /ul Normal OCCULT BLOOD-UR Negative LAB L400.3800 Negative /ul High LEUK 25 ESTERASE LAB L400.4050 0-5 /hpf WBC Normal 0-5 SEEN LAB L400.4100 0-5 /hpf 0 Normal RBC-UA SEEN LAB L400.4150 0-5 /hpf SQUAM 0 Normal EPI SEEN LAB L400.4300 None Seen /hpf 0 Normal BACTERIA SEEN LAB L400.4350 <or=2+ /hpf 0 Normal MUCUS, URINE SEEN Performed By: #### L400.0001 #### [facility] [address] [place], [place], [address] Observed: 12/27/2017 Status: F Source: DE[place]A CULTURE, URINE 3:00 PM [facility] REPOSITORY Order Date: 12/27/17 Urine Culture ORGANISM 1: Staphylococcus epidermidis [place] Count >100,000 Staphylococcus epidermidis: REACTION Benzylpenicillin NF >=0.5 R Cefoxitin *NF + Inducable Clindamycin [place] + Gentamicin $ <=0.5 S Levofloxacin $ 4 I Linezolid $$$$ 1 S Nitrofurantoin $ <=16 S Oxacillin NF >=4 R Rifampin $$ <=0.5 S Tetracycline NF >=16 R Vancomycin $ 1 S (NF) indicates non-formulary drug at [facility]. Approval by Infectious Disease Specialist required before non-formulary drugs may be ordered and/or dispensed. * CLSI guidelines does not recommend testing of cephalosporins. This interpretation is deduced from Beta-lactam/penicillin results. Performed By: #### M100.0650 #### [facility] [address] [place] [address]. [place], [place], [address] PHENYTOIN (DILANTIN) Collected: 12/27/2017 Status: F Source: [place] LEVEL 2:55 AM [facility]POSITORY TYPE CODE TESTS RESULT OUT OF REFERENCE UNITS RANGE LAB L501.7700 10.0-20.0 mL Low PHENYTOIN 3.3 Performed By: #### L100.0500, L501.7700, L501.8100 #### [facility] [address] [facility]. [place], [place], [address] VALPROIC ACID Collected: 12/27/2017 Status: F Source: [place] (DEPAKENE) LEVEL 2:55 AM [facility] REPOSITORY TYPE CODE TESTS RESULT OUT OF REFERENCE UNITS RANGE LAB L501.8100 50-100 ug/mL Low VALPROIC ACID 26 Performed By: #### L100.0500, L501.7700, L501.8100 #### [facility] [address] [place], [place], [address] CBC-COMPLETE BLOOD CNT Collected: 12/27/2017 Status: F Source: [place] NO DIFF 2:30 AM [facility]POSITORY TYPE CODE TESTS RESULT OUT OF RANGE REFERENCE UNITS LAB L100.1000 4.4-11.0 K/mm3 High WBC 14.6 LAB L100.1200 4.6-6.2 M/mm3 Low RBC 3.64 LAB L100.1300 13.0-16.5 g/dl Low HGB 11.3 LAB L100.1400 40-54 % Low HCT 33.5 LAB L100.1500 80-94 fL Normal MCV 92.0 LAB L100.1600 27.0-32.0 pg Normal MCH 31.0 LAB L100.1700 32-36 g/gl Normal MCHC 33.7 LAB L100.1810 11.6-14.6 % High RDW CV 15.1 LAB L100.1820 35.1-43.9 fl High RDW SD 49.0 LAB L100.1900 150-450 K/mm3 High PLT 479 LAB L100.2000 6.2-12.0 fl Normal MPV 8.5 Performed By: #### L100.0500, L501.7700, L501.8100 #### [facility] [address] [facility], [address] BASIC METABOLIC Collected: 12/27/2017 Status: F Source: [place] PROFILE (BMP) 2:30 AM [facility]POS[facility]ORY TYPE CODE TESTS RESULT OUT OF RANGE REFERENCE UNITS LAB L501.0100 74-106 mg/dL High GLU 116 Result Comment: Fasting Glucose result from 100 to 125 mg/dL suggests IMPAIRED HOMEOSTASIS per A.D.A. criteria. Please note revised GLUCOSE reference range effective 2017. LAB L501.1000 7-18 mg/dL Normal BUN 7 LAB L501.1100 0.70-1.30 mg/dL Low CREAT,SERUM 0.62 Result Comment: The validity of the calculated GFR AND GFRAA in patients over 70 years has not been determined. Clinical correlation is essential. LAB L501.1110 >60 mL/min Normal EST GFR 143 Result Comment: Non- GFR Calc LAB L501.1115 >60 mL/min Normal EST GFR - AA 173 Result Comment: GFR Calc LAB L501.1255 ml/min Normal Estimated CRCL 127.18 LAB L501.1300 10-20 RATIO BUN/CRE Normal 11.4 LAB L501.2200 8.5-10 mg/dL .1 CA Normal 8.6 LAB L501.5300 136-14 mmol/L Low 5 NA 127 LAB L501.5600 3.5-5. mmol/L Low 1 K 3.4 LAB L501.5900 98-107 mmol/L Low CL 91 LAB L501.6100 21.0-3 mmol/L 2.0 CO2 Normal 27.0 LAB L501.6200 5-15 GAP Normal 9 Performed By: #### L500.2500 #### [facility] [address] [place], [address] BEDSIDE GLUCOSE Collected: 12/27/2017 Status: F Source: [place] 1:40 AM [facility] TYPE CODE TESTS RESULT OUT OF REFERENCE UNITS RANGE LAB L501.080 70-110 mg/dL High BEDSIDE GLU 133 Result Comment: MANAGEMENT OF PATIENT CARE PER NURSING PROTOCOL Performed By: #### L501.080 #### [facility] Point of Care [address] [place] [address] VENOUS DUPLEX LOWER Observed: 12/22/2017 Status: F Source: [place] EXTREMITY 6:09 PM [facility] REPOSITORY [facility] Cardiovascular Services [address] [facility] [place] [address] Venous Duplex US, Unilateral 12/22/17 1517 MR#: [id number] Acct: [id number] Name: MIKE BLANTON Rep #: [id number] : 1960 57 From: Jon [place] MD Attending Dr: Nathan Melissa Status: ADM IN Ordering Dr: Vika Spears Date: 12/22/17 Location: Sex: M C Admitted: 12/15/17 Reason For Study: LLE Pain RIGHT LEFT CFV is compressible, spontaneous, phasic, GSV is normal. competent and demonstrates normal CFV is compressible, spontaneous, phasic, augmentation. competent, and demonstrates normal Procedure augmentation. Exam performed portable in patient room. Acute deep vein thrombosis is noted in the A preliminary report was called and/or faxed left femoral vein. to [facility] Nurse. Acute deep vein thrombosis is noted in the left popliteal vein. Acute deep vein thrombosis is noted in the left T/P Trunk. Acute deep vein thrombosis is noted in the left posterior tibial vein. LT PerV is compressible. <> Interpretation Summary Acute deep vein thrombosis is noted in the left femoral vein. Acute deep vein thrombosis is noted in the left popliteal vein. Acute deep vein thrombosis is noted in the left tibio-peroneal trunk. Acute deep vein thrombosis is noted in the left posterior tibial vein. The left common femoral vein and peroneal vein are patent and compressible. The left greater saphenous vein appears patent and compressible segmentally. Ordering Physician: Vika Spears Referring Physician: Jose Alvarez Chi Performed By: Carol Hoyos RVT and Student 12/22/171808 Date Jon [place] MD CC: BETHANY Spears; Nathan Melissa; Nato Christensen MD; Jose Alvarez MD Date Dictated: 12/22/17 1517 Date Transcribed: 12/22/171808 Marinator: Mayra FACTOR II, DNA Collected: 12/22/2017 Status: F Source: [place] ANALYSIS 4:38 PM [facility]POS[facility]ORY TYPE CODE TESTS RESULT OUT OF RANGE REFERENCE UNITS LAB L4500.2100 . Normal FACTOR Comment II,DNA Result Comment: NEGATIVE No mutation identified. Comment: A point mutation ([id number]) in the factor II (prothrombin) gene is the second most common cause of inherited thrombophilia. The incidence of this mutation in the [place] population is about 2% and in the population it is approximately 0.5%. This mutation is rare in the and population. Being heterozygous for a prothrombin mutation increases the risk for developing venous thrombosis about 2 to 3 times above the general population risk. Being homozygous for the prothrombin gene mutation increases the relative risk for venous thrombosis further, although it is not yet known how much further the risk is increased. In women heterozygous for the prothrombin gene mutation, the use of estrogen containing oral contraceptives increases the relative risk of venous thrombosis about 16 times and the risk of developing cerebral thrombosis is also significantly increased. In the prothrombin gene mutation increases risk for venous thrombosis and may increase risk for stillbirth, placental abruption, pre-eclampsia and growth restriction. If the patient possesses two or more congenital or acquired thrombophilic risk factors, the risk for thrombosis may rise to more than the sum of the risk ratios for the individual mutations. This assay detects only the prothrombin [id number] mutation and does not measure genetic abnormalities elsewhere in the genome. Other thrombotic risk factors may be pursued through systematic clinical laboratory analysis. These factors include the R506Q ([place]) mutation in the Factor V gene, plasma homocysteine levels, as well as testing for deficiencies of antithrombin III, protein C and protein S. Genetic Counselors are available for health care providers to discuss results at [phone] ([id number]). Methodology: DNA analysis of the Factor II gene was performed by PCR amplification followed by restriction analysis. The diagnostic sensitivity is >99% for both. All the tests must be combined with clinical information for the most accurate interpretation. Molecular-based testing is highly accurate, but as in any laboratory test, diagnostic errors may occur. This test was developed and its performance characteristics determined by [employer]. It has not been cleared or approved by the Food and Drug Administration. Poort SR, et al. Blood. 1996; 88:6357-7546. Eliezer MARTÍNEZ. Circulation. 2004; 110:e15-e18. Karl I, et al. Arterioscler Thromb Vasc Biol. 1999; 19:700-703. Maureen Hart, PhD, [facility] Geraldine Mcgregor, PhD, FAC Sunita Soto M.S., PhD, [facility] Trinity Aviles, PhD, [facility] Laly Casey, PhD, FAC Jerad Nugent, PhD, FAC Performed By: #### L4500.1999, L4500.8350, L4500.8800 #### [facility] (refer to report for specific site) refer to report for address and phone number [place] FACTOR Collected: 12/22/2017 Status: F Source: [place] ACTIVITY 4:38 PM [facility]POS[facility]ORY TYPE CODE TESTS RESULT OUT OF REFERENCE UNITS RANGE LAB L4500.8350 50-200 % High vWF ACTIVITY 389 Result Comment: Performed at: TG - [facility] [address] [place], [place] [id number] Marketing Production Coordinator: Miguel Aparicio MD, Phone: [phone] Performed at: BN - [facility] [address] [id number] Marketing Production Coordinator: Brendan Bhandair MD, Phone: [phone] Performed By: #### L4500.1999, L4500.8350, L4500.8800 #### [facility] (refer to report for specific site) refer to report for address and phone number FACTOR VIII ACTIVITY Collected: 12/22/2017 Status: F Source: [place] 4:38 PM [facility] REPOS[facility]ORY TYPE CODE TESTS RESULT OUT OF RANGE REFERENCE UNITS LAB L4500.8800 57-163 % High FAC 8 ACT 278 Result Comment: FVIII activity can increase in a variety of clinical situations including normal , in samples drawn from patients (particularly children) who are visibly stressed at the time of phlebotomy, as acute phase reactants, or in response to certain drug therapies such as DDAVP. Persistently elevated FVIII activity is a risk factor for venous thrombosis as well as recurrence of venous thrombosis. Risk is graded and increases with the degree of elevation. Although elevated FVIII activity has been identified to cluster within families, a genetic basis for the elevation has not yet been elucidated (Br J Haematol. 2012; 157:653-663). Performed By: #### L4500.1999, L4500.8350, L4500.8800 #### [facility] (refer to report for specific site) refer to report for address and phone number 12 LEAD ELECTROCARDIOGRAM Observed: 12/21/2017 Status: F Source: [place] 12:54 PM [facility] REPOSITORY [facility] Cardiovascular Services [address] [place] [address] 12 Lead EKG 12/13/17 0509 MR#: [id number] Acct: [id number] Name: MIKE BLANTON Rep #: [id number] : 1960 57 From: Isiah Lieberman MD Attending Dr: Dexter Vásquez MD Status: DIS IN Ordering Dr: Jerad Tyler MD Date: 12/13/17 Location: MI3 Sex: M C Admitted: 12/12/17 Test Reason : MORNING EKG Blood Pressure : / mmHG Vent. Rate : 097 BPM Atrial Rate : 097 BPM P-R Int : 144 ms QRS Dur : 100 ms QT Int : 360 ms P-R-T Axes : 068 124 049 degrees QTc Int : 457 ms Normal sinus rhythm Right ventricular hypertrophy Abnormal ECG No previous ECGs available Confirmed by ISIAH LIEBERMAN ([id number]), associate entertainment editor SUNITA BILLINGS ([id number]) on 12/21/2017 12:54:15 PM Referred By: DERIAN Confirmed By:ISIAH LIEBERMAN 12/21/17 1254 Date Isiah Lieberman MD CC: Jerad Tyler MD; Dexter Vásquez MD; Jose Alvarez MD Signed 12 LEAD ELECTROCARDIOGRAM Observed: 12/21/2017 Status: F Source: [place] 11:36 AM [facility] REPOSITORY [facility] Cardiovascular Services [address] [place] [address] 12 Lead EKG 12/14/17 0714 MR#: [id number] Acct: [id number] Name: MIKE BLANTON Rep #: [id number] : 1960 57 From: Isiah Lieberman MD Attending Dr: Dexter Vásquez MD Status: DIS IN Ordering Dr: Jerad Tyler MD Date: 12/14/17 Location: [facility] Sex: M C Admitted: 12/12/17 Test Reason : Blood Pressure : / mmHG Vent. Rate : 092 BPM Atrial Rate : 092 BPM P-R Int : 148 ms QRS Dur : 104 ms QT Int : 402 ms P-R-T Axes : 071 081 060 degrees QTc Int : 497 ms Normal sinus rhythm Prolonged QT Abnormal ECG When compared with ECG of 13-DEC-2017 05:09, MANUAL COMPARISON REQUIRED, DATA IS UNCONFIRMED Confirmed by ISIAH LIEBERMAN ([id number]), associate entertainment editor SUNITA BILLINGS ([id number]) on 12/21/2017 11:36:40 AM Referred By: Shane TYLER Confirmed By:ISIAH LIEBERMAN 12/21/17 1136 Date Isiah Lieberman MD CC: Jerad Tyler MD; Dexter Vásquez MD; Jose Alvarez MD Signed H AND P W/ COSIGN Observed: 12/17/2017 Status: F Source: [place] 1:20 PM [facility] REPOSITORY [facility] Medical Records Department [address] [place] [address] H AND P w/ Cosign 12/16/17 0841 MR#: [id number] Acct: [id number] Name: MIKE BLANTON Rep #: [id number] : 1960 57 From: Vika Spears LIDAR SCIENTIST-C PCP: Jose Alvarez MD, Chi Status: ADM IN Location: [place] [address] History of Present Illness Date of Admission: 12/15/17 Chief Complaint: Left Total Hip Replacement The patient is a 57 year old right handed male, who is admitted to the Rehab unit for Rehabilitation after a mechanical fall from standing. He has a PMH: HTN, HLD, Hypothyroidism, BPH, seizures on Keppra, Parkinson which he is not on medication for. He underwent a Total Left Hip Replacement for a left impacted nondisplaced fracture with Dr. Walden, he tolerated the procedure well. He is on Aspirin 325mg BID per Orthopedics for DVT PPX. 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 Past Medical History Medical History: Medical History (Last Reviewed 12/12/17 @ 21:51 by Jerad Tyler MD) BPH (benign prostatic hyperplasia) N40.0 Parkinson disease G20 Seizure disorder G40.909 Allergies No Known Allergies Allergy (Verified 12/12/17 17:43) Home Medications: Ambulatory Orders Medication Instructions Recorded atorvastatin 40 mg tablet 40 mg PO QHS 12/03/17 divalproex 250 mg tablet,delayed 500 mg PO QHS 12/03/17 release levothyroxine 50 mcg capsule 50 mcg PO DAILY 12/03/17 Surgical History: Surgical History (Last Reviewed 12/13/17 @ 09:21 by Jerad Tyler MD) S/P hip replacement Z96.649 Surgical History: - - Patient with a prior Right hip replacement, and right wrist surgery Lives: Alone - 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, - Tobacco Use: Non-smoker, Chew - Tobacco, - - dips snuff Alcohol: Rare Drugs: None Review of Systems Constitutional: Denies: Chills, Fever, Weight Change HEENT: Denies: Head Aches, Sinus Congestion, Sinus Drainage Cardiovascular: Denies: Chest Pain, Palpitations Respiratory: Denies: Cough, Shortness of breath at rest, Sputum production Gastrointestinal: Denies: Abdominal Pain, Nausea, Vomiting Genitourinary: Denies: Dysuria Musculoskeletal: Denies: Joint Pain, Joint Tenderness Skin: Denies: Rash, Wounds Neurological: Denies: Numbness, Tingling, Focal weakness Psychiatric: Denies: Anxiety, Depression, Homicidal Ideations, Suicidal Ideations Hematologic/ Lymphatic: Denies: Easy Bruising, Easy Bleeding VTE Information - Inpt Only VTE Present on Admission: No VTE Mechan Device Prophylaxis: SCD's, Knee High AGUSTÍN Hose VTE Pharm Prophylaxis ordered?: Yes - Physical Exam General: Alert, Oriented x3, Cooperative HEENT: Atraumatic, PERRLA, EOMI, Normocephalic Neck: Supple, No JVD, Negative Carotid Bruits Lungs: Clear to auscultation, Normal air movement Cardiovascular: Regular rate, No murmurs Abdomen: Bowel Sounds Present, Soft, Non Tender Extremities: No edema, Capillary Refill Less than 3 Seconds Skin: No rashes, No breakdown Musculoskeletal: No Tenderness to Palpation of Joints or Extremities Neurological: Cranial nerves II-XII grossly intact Psych/Mental Status: Normal Affect, Appropriate, Alert and oriented to time, place, person, mood and affect Vital Signs Temp Pulse Resp BP Pulse Ox 98.0 F 92 18 128/86 H 96 12/15/17 22:00 12/15/17 22:00 12/15/17 22:00 12/15/17 22:00 12/16/17 06:20 Oxygen Delivery Method Room Air Weight: 70.76 kg Body Mass Index (BMI) 23.6 Laboratory Tests Past 24 Hrs WBC 7.7 RBC 3.70 L Hgb 11.1 L Hct 34.4 L Active Medications Acetaminophen (Tylenol) 1,000 mg PO Q8 [facility] Last Admin: 12/16/17 06:29 Dose: 1,000 mg Aspirin (Aspirin) 325 mg PO BIDCM [facility] Last Admin: 12/16/17 08:24 Dose: 325 mg Atorvastatin Calcium (Lipitor) 40 mg PO QHS [facility] Last Admin: 12/15/17 20:28 Dose: 40 mg Bisacodyl (Dulcolax) 10 mg RECTAL .PRN X 1 PRN PRN Reason: Constipation Divalproex Sodium (Depakote) 500 mg PO QHS [facility] Last Admin: 12/15/17 20:24 Dose: 500 mg Enoxaparin Sodium (Lovenox) 40 mg SC DAILY@0600 [facility] Last Admin: 12/16/17 06:30 Dose: 40 mg Ergocalciferol (Vitamin D) 50,000 unit PO Q7D [facility] Last Admin: 12/16/17 08:23 Dose: 50,000 unit Levothyroxine Sodium (Synthroid) 50 mcg PO DAILY@0600 [facility] Last Admin: 12/16/17 06:30 Dose: 50 mcg Magnesium Hydroxide (Milk Of Magnesia) 30 ml PO .PRN X 1 PRN PRN Reason: Constipation Mirtazapine (Remeron) 15 mg PO QHS [facility] Last Admin: 12/15/17 20:28 Dose: 15 mg Nicotine (Nicoderm Cq (Pbkc)) 21 mg TRANSDERM. DAILY [facility] Last Admin: 12/16/17 08:23 Dose: 21 mg Nutritional Formula (Lactose Free) (Ensure Enlive) 120 ml PO 4X/DAY [facility] Last Admin: 10/25/18 08:23 Dose: Not Given Oxycodone HCl (Oxyir) 5 mg PO Q6H PRN PRN PRN Reason: SEVERE PAIN (-12/01) Last Admin: 12/16/17 03:25 Dose: 5 mg Phenytoin Sodium (Dilantin) 300 mg PO DAILYCM [facility] Last Admin: 12/16/17 08:24 Dose: 300 mg Senna/Docusate Sodium (Senokot-S, Sri-Colace) 2 tablet PO BID [facility] Last Admin: 12/16/17 08:25 Dose: Not Given Tamsulosin HCl (Flomax) 0.4 mg PO DAILY@0830 [facility] Last Admin: 12/16/17 08:23 Dose: 0.4 mg Assessment/Plan All Active Problems (Last Reviewed 12/12/17 @ 21:51 by Jerad Tyler MD) Nondisplaced fracture of neck of left femur (Acute) Multiple falls (Acute) Compression fx, thoracic spine (Acute) Debility s/p total left hip replacement, complicated by Parkinson, seizures and compression fractures of the thoracic spine. Goal of rehab is synagogue of functional independence. 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 12/16/17 1641 <Electronically signed by Vika Spears LIDAR SCIENTIST-C> Date Vika Spears LIDAR SCIENTIST-C 10/26/18 1320<Electronically signed by Nato Christensen MD> Cosigner Signature (if applicable): Date Nato Christensen MD CC: BETHANY Spears; Nato Christensen MD; Jose Alvarez MD Signed CBC-COMPLETE BLOOD CNT Collected: 12/16/2017 Status: F Source: [place] NO DIFF 5:00 AM [facility] REPOSITORY TYPE CODE TESTS RESULT OUT OF RANGE REFERENCE UNITS LAB L100.1000 4.4-11.0 K/mm3 Normal WBC 7.7 LAB L100.1200 4.6-6.2 M/mm3 Low RBC 3.70 LAB L100.1300 13.0-16.5 g/dl Low HGB 11.1 LAB L100.1400 40-54 % Low HCT 34.4 LAB L100.1500 80-94 fL Normal MCV 93.0 LAB L100.1600 27.0-32.0 pg Normal MCH 30.0 LAB L100.1700 32-36 g/gl Normal MCHC 32.3 LAB L100.1810 11.6-14.6 % Normal RDW CV 14.6 LAB L100.1820 35.1-43.9 fl High RDW SD 47.9 LAB L100.1900 150-450 K/mm3 Normal PLT 152 LAB L100.2000 6.2-12.0 fl Normal MPV 10.7 Performed By: #### L100.0500 #### [facility] [place], [address] BASIC METABOLIC Collected: 12/16/2017 Status: F Source: [place] PROFILE (BMP) 5:00 AM [facility] REPOSITORY TYPE CODE TESTS RESULT OUT OF RANGE REFERENCE UNITS LAB L501.0100 74-106 mg/dL Normal GLU 84 Result Comment: Please note revised GLUCOSE reference range effective 2017. LAB L501.1000 7-18 mg/dL Normal BUN 11 LAB L501.1100 0.70-1.30 mg/dL Low CREAT,SERUM 0.65 Result Comment: The validity of the calculated GFR AND GFRAA in patients over 70 years has not been determined. Clinical correlation is essential. LAB L501.1110 >60 mL/min Normal EST GFR 134 Result Comment: Non- GFR Calc LAB L501.1115 >60 mL/min Normal EST GFR - AA 162 Result Comment: GFR Calc LAB L501.1255 ml/min Normal Estimated CRCL 121.31 LAB L501.1300 10-20 RATIO BUN/CRE Normal 16.9 LAB L501.2200 8.5-10 mg/dL Low .1 CA 8.0 LAB L501.5300 136-14 mmol/L 5 NA Normal 143 LAB L501.5600 3.5-5. mmol/L 1 K Normal 3.7 LAB L501.5900 98-107 mmol/L High CL 111 LAB L501.6100 21.0-3 mmol/L 2.0 CO2 Normal 25.0 LAB L501.6200 5-15 GAP Normal 7 Performed By: #### L500.2500 #### [facility] [address] [facility] [place], [address] DISCHARGE SUMMARY Observed: 12/15/2017 Status: F Source: [place] 3:05 PM [facility] REPOSITORY [facility] Medical Records Department [address] [place] [address] Discharge Summary 12/15/17 1350 MR#: [id number] Acct: [id number] Name: MIKE BLANTON Rep #: [id number] : 1960 57 From: Pepito SALAMANCA PCP: Antonio LEAVITT,Jose Chi Status: ADM IN Y [place] [facility] [id number] <Pepito Lopez - Last Filed: 12/15/17 13:50> Discharge Date and Diagnosis - Problem List Patient Problems: Active and Suspected Problems (Last Reviewed 12/12/17 @ 21:51 by Jerad Tyler MD) Nondisplaced fracture of neck of left femur (Acute) Multiple falls (Acute) Compression fx, thoracic spine (Acute) Date of Admission: 12/12/17 Date of Discharge: 12/15/17 - Primary Discharge Diagnosis Active and Suspected Problems (Last Reviewed 12/12/17 @ 21:51 by Jerad Tyler MD) Nondisplaced fracture of neck of left femur (Acute), pathologic, suspect osteomalacia Multiple falls (Acute) Compression fxs, age unknownthoracic spine (Acute) Parkinson disease with debility hx Seizure HLD BPH Mild thrombocytopenia Post op anemia Hypothyroidism Hospital Course and Treatment Imaging Results: CT/Abdomen/Pelvis without Cont IMPRESSION: There is no definite acute abnormality. No acute fractures are seen. There is cholelithiasis. CT/Chest without Contrast IMPRESSION: COPD with areas of fibrosis greater than expected for age. Demineralization and degenerative changes throughout the skeletal structures. Numerous compression fractures of the thoracic spine of indeterminate age. These findings are all also advanced for age. XR femur left IMPRESSION: Impacted nondisplaced fracture of the left femoral neck with no dislocation of the hip. RAD/Hip Min 2 Views (Portable) IMPRESSION: Status post left total hip arthroplasty. CT/Extremity Lower WITH Contrast IMPRESSION: Status post left total hip replacement. There is good alignment. Expected postoperative soft tissue changes overlying the left hip replacement. Consults: Ortho - [place] Operations: total hip replacement Procedures: None Summary of Care Provided: Hospital course: The patient is a 57 year old M with a hx of seizures, parkinsons, htn, hld, hypothyroid, BPH, who presented to the ER with c/o left hip pain after a mechanical fall from standing at home. He had an xray of his hip which revealed left impacted nondisplaced fracture with noted left dislocation. He had also complained of chest pain and had a CT of the chest and abdomen/pelvis which demonstrated multiple compression fractures of unknown age. Suspect that he had pathologic fracture of the hip. He was admitted to the medical surgical floor and orthopedics was consulted. Patient was taken to surgery and tolerated the procedure well. Postop he did have an episode of hypotension which was successfully treated with IV fluids. His pain was well controlled and he worked well with PT and OT. It is recommended that he be placed in the rehab unit prior to going home. PTH is mildly elevated, calcium has been normal, vitamin D is pending. He is already on vitamin D replacement. It is possible that he has osteomalacia secondary to phenytoin use. He may benefit from being started on a bisphosphonate as an outpatient. Patient is on 325 aspirin twice daily for DVT prophylaxis per orthopedics. He will need follow-up with orthopedics as an outpatient as directed. Patient was discharged to rehab unit in stable condition. This patient was seen by Pepito Lopez PA-C under the supervision of Doctor Fahad. [] Patient Problems: Active and Suspected Problems (Last Reviewed 12/12/17 @ 21:51 by Jerad Tyler MD) Nondisplaced fracture of neck of left femur (Acute) Multiple falls (Acute) Compression fx, thoracic spine (Acute) - Physical Exam General: Alert, Oriented x3, Cooperative HEENT: Atraumatic, PERRLA, EOMI, Normocephalic Neck: Supple, No JVD, Negative Carotid Bruits Lungs: Clear to auscultation, Normal air movement Cardiovascular: Regular rate, No murmurs Abdomen: Bowel Sounds Present, Soft, Non Tender Extremities: No edema, Capillary Refill Less than 3 Seconds Skin: No rashes, No breakdown Musculoskeletal: No Tenderness to Palpation of Joints or Extremities Neurological: Cranial nerves II-XII grossly intact Psych/Mental Status: Normal Affect, Appropriate, Alert and oriented to time, place, person, mood and affect Vital Signs Temp Pulse Resp BP Pulse Ox 98.2 F 91 16 133/80 H 92 12/15/17 09:20 12/15/17 09:20 12/15/17 09:20 12/15/17 09:20 12/15/17 09:20 Oxygen Flow Rate (L/min) 2 Oxygen Delivery Method Room Air Weight: 158 lb 8.198 oz Body Mass Index (BMI) 24.0 Intake and Output for Last 24 Hours Intake Total 3847 / 3847 5300 / 5300 2826 / 2826 Output Total 2915 / 2915 1150 / 1150 850 / 850 Balance 932 / 932 4150 / 4150 1975 / 1975 Laboratory Tests Past 24 Hrs Discharge Diet: Low fat/ Low Cholesterol, 2000 mg Sodium Diet Discharge Activity: Return to Normal Activity Additional Activity Instructions:: Activity as directed by Orthopedics Home Medications: Medications to take at Discharge atorvastatin 40 mg tablet 40 mg PO QHS 12/03/17 divalproex 250 mg tablet,delayed release 500 mg PO QHS 12/03/17 levothyroxine 50 mcg capsule 50 mcg PO DAILY 12/03/17 mirtazapine 30 mg tablet 15 mg PO DAILY 12/03/17 phenytoin sodium extended 100 mg capsule 300 mg PO DAILY 12/03/17 tamsulosin 0.4 mg capsule 0.4 mg PO DAILY 12/03/17 Ergocalciferol [Vitamin D] 50,000 unit PO Q7D 12/12/17 Acetaminophen [Tylenol] 1,000 mg PO Q8 tablet 12/15/17 Aspirin 325 mg PO BID tablet 12/15/17 Ensure Enlive 120 ml PO 4X/DAY liquid 12/15/17 Magnesium Hydroxide [Milk Of Magnesia] 30 ml PO DAILY PRN PRN udc 12/15/17 Nicotine [Nicoderm Cq] 21 mg TRANSDERM. DAILY patch 12/15/17 Oxycodone [Oxyir] 5 mg PO Q6H PRN PRN 2 Days #8 tablet 12/15/17 Primary Care Physician: Jose Alvarez Chi, MD [Primary Care Provider] - Please follow up with your Primary Care Physician in: 2 weeks Please Follow Up With: Steov Walden DO When: 1 week Disposition: Inpt Rehab Unit/Facility Minutes spent on discharge:: 35 Patient Condition:: Stable Medical Necessity - Tobacco Use Smoking Status: Current every day smoker Tobacco Use: Chew Meaningful Use Info Meaningful Use Diagnoses (Choose all that apply): None applicable <Dexter Vásquez - Last Filed: 12/15/17 15:05> Discharge Date and Diagnosis - Primary Discharge Diagnosis Active and Suspected Problems (Last Reviewed 12/12/17 @ 21:51 by Jerad Tyler MD) Nondisplaced fracture of neck of left femur (Acute) Multiple falls (Acute) Compression fx, thoracic spine (Acute) Hospital Course and Treatment Summary of Care Provided: The patient is a 57 year old M [] - Physical Exam Vital Signs Temp Pulse Resp BP Pulse Ox 98.2 F 91 16 133/80 H 92 12/15/17 09:20 12/15/17 09:20 12/15/17 09:20 12/15/17 09:20 12/15/17 09:20 Oxygen Flow Rate (L/min) 2 Oxygen Delivery Method Room Air Weight: 158 lb 8.198 oz Body Mass Index (BMI) 24.0 Intake and Output for Last 24 Hours Intake Total 3847 / 3847 5300 / 5300 2826 / 2826 Output Total 2915 / 2915 1150 / 1150 850 / 850 Balance 932 / 932 4150 / 4150 1975 Laboratory Tests Past 24 Hrs Code Visit Addendum: Dr. Vásquez I personally examined the patient and reviewed the chart. I agree with the above. 57-year-old male with a past medical history significant for seizure disorder, Parkinson's disease who presented after a fall on the same day of his admission. Went to the operating room and had a left total hip arthroplasty. He is doing well postoperatively. He was ambulating in the hallway this afternoon. He did have an episode of hypotension that was resolved with IV fluids and his H AND H has remained stable at 11.1. Plan for discharge to rehab today. He is to continue with aspirin 325 mg twice daily for postop DVT prophylaxis per orthopedic surgery. He is weightbearing as tolerated. Of note given his multiple compression fractures and others nondisplaced fracture of the neck of the left femur, he may benefit from an outpatient bisphosphonate therapy; also osteomalacia is a side effect of phenytoin, so may be beneficial to titrate his medications during his rehab stay for his seizure disorder. Inpatient E AND M: 61013 Disch Hosp 12/15/17 1400 <Electronically signed by Pepito SALAMANCA> Date Pepito SALAMANCA 12/15/17 1505<Electronically signed by Dexter Vásquez MD> Cosigner Signature (if applicable): Date Dexter Vásquez MD CC: CHEIKH Lopez; Dexter Vásquez MD; Jose Alvarez MD Signed DISCHARGE INSTRUCTION Observed: 12/15/2017 Status: F Source: [place] 12:04 PM [facility] REPOSITORY [facility] Medical Records Department [address] [place] [address] Instructions for Home/Discharge Instructions 12/15/17 1202 MR#: [id number] Acct: [id number] Name: MIKE BLANTON Rep #: [id number] : 1960 57 From: Pepito SALAMANCA PCP: Jose Alvarez MD, Chi Status: ADM IN - Discharge Diagnoses Current Active Problems: Current Active and Chronic Problems (Last Reviewed 12/12/17 @ 21:51 by Jerad Tyler MD) Nondisplaced fracture of neck of left femur (Acute) Multiple falls (Acute) Compression fx, thoracic spine (Acute) You will use the following diet at home:: No restrictions Your food should be the consistency of: Regular Your liquids should be the consistency of: Regular/Thin Discharge Activity: Return to Normal Activity Additional Activity Instructions:: Activity as directed by Orthopedics Allergies/Adverse Reactions: Allergies No Known Allergies Allergy (Verified 12/12/17 17:43) Medications to take at Discharge atorvastatin 40 mg tablet 40 mg PO QHS 12/03/17 divalproex 250 mg tablet,delayed release 500 mg PO QHS 12/03/17 levothyroxine 50 mcg capsule 50 mcg PO DAILY 12/03/17 mirtazapine 30 mg tablet 15 mg PO DAILY 12/03/17 phenytoin sodium extended 100 mg capsule 300 mg PO DAILY 12/03/17 tamsulosin 0.4 mg capsule 0.4 mg PO DAILY 12/03/17 Ergocalciferol [Vitamin D] 50,000 unit PO Q7D 12/12/17 Acetaminophen [Tylenol] 1,000 mg PO Q8 tablet 12/15/17 Aspirin 325 mg PO BID tablet 12/15/17 Ensure Enlive 120 ml PO 4X/DAY liquid 12/15/17 Magnesium Hydroxide [Milk Of Magnesia] 30 ml PO DAILY PRN PRN udc 12/15/17 Nicotine [Nicoderm Cq] 21 mg TRANSDERM. DAILY patch 12/15/17 Oxycodone [Oxyir] 5 mg PO Q6H PRN PRN 2 Days #8 tablet 12/15/17 Primary Care Physician: Jose Alvarez Chi, MD [Primary Care Provider] - Please follow up with your Primary Care Physician in: 2 weeks Test Results: Test results from this visit will be discussed in further detail at your follow-up appointment, if applicable. Please Follow Up With: Stevo Walden DO When: 1 week Proposed Discharge Date: 12/15/17 12/15/17 9957 <Electronically signed by Pepito SALAMANCA> Date Pepito SALAMANCA CC: Mike Cardenas MD; Jose Alvarez MD CBC W/DIFF, AUTOMATED Collected: 12/15/2017 Status: F Source: [place] 6:20 AM [facility] REPOSITORY TYPE CODE TESTS RESULT OUT OF RANGE REFERENCE UNITS LAB L100.1000 4.4-11.0 K/mm3 Normal WBC 8.7 LAB L100.1200 4.6-6.2 M/mm3 Low RBC 3.65 LAB L100.1300 13.0-16.5 g/dl Low HGB 11.1 LAB L100.1400 40-54 % Low HCT 34.1 LAB L100.1500 80-94 fL Normal MCV 93.4 LAB L100.1600 27.0-32.0 pg Normal MCH 30.4 LAB L100.1700 32-36 g/gl Normal MCHC 32.6 LAB L100.1810 11.6-14.6 % Normal RDW CV 14.3 LAB L100.1820 35.1-43.9 fl High RDW SD 48.6 LAB L100.1900 150-450 K/mm3 Low PLT 123 LAB L100.2000 6.2-12.0 fl Normal MPV 10.8 LAB L100.2100 47-70 % Normal NEUT% 58.2 LAB L100.2200 19-41 % Normal LY% 21.3 LAB L100.2300 0-10 % High MONO% 16.5 LAB L100.2400 0-5 % Normal EO% 3.5 LAB L100.2500 0-1 % Normal BASO% 0.3 LAB L100.2550 0.0-0.9 % Normal IM GRAN % 0.200 Result Comment: IG% - Immature Granulocytes (promyelocytes, myelocytes and metamyelocytes) > 1% indicates that a LEFT SHIFT is Present. LAB L100.2620 2.0-7.7 X10 3/uL Normal Absolute Neut 5.1 LAB L100.2720 0.83-4.51 X10 3/ul Normal Absolute Lymph 1.85 Performed By: #### L100.0100 #### [facility] [address] [place], [address] HH, HEMOGLOBIN AND Collected: 12/14/2017 Status: F Source: [place] HEMATOCRIT 9:25 AM [facility] REPOSITORY TYPE CODE TESTS RESULT OUT OF RANGE REFERENCE UNITS LAB L100.1300 13.0-16.5 g/dl Low HGB 11.5 LAB L100.1400 40-54 % Low HCT 35.5 Performed By: #### L100.0600 #### [facility] [address] [place], [address] EXTREMITY LOWER WITH Observed: 12/14/2017 Status: F Source: [place] CONTRAST 7:08 AM [facility] REPOSITORY [facility] Imaging Services [address] [facility] [place] [address] Extremity Lower WITH Contrast MR#: [id number] Acct: [id number] Name: MIKE BLANTON Rep #: [id number] : 1960 M 57 From: Bernard Pettit MD PCP: Antonio LEAVITT,Jose [facility] Status: ADM IN Study: Extremity Lower WITH Contrast Date of Exam: 12/14/17 Exam# [id number] Ordering Dr: Jerad Tyler MD STUDY: CT SCAN HIP LEFT REASON FOR EXAM: Male, 57 years old. The patient is status post left hip replacement. Hypotension. Assessing for possible bleeding. RADIATION DOSAGE (If Supplied By Facility): CTDIvol = ( 17.55 ) mGy, DLP = ( 771.66 ) mGycm. Individualized dose optimization techniques were used for this CT.? TECHNIQUE: Multiple axial tomographic images were obtained following intravenous contrast administration. Coronal and sagittal reconstruction was obtained as well. COMPARISON: Comparison is made with prior radiograph dated December 13, 2017. FINDINGS: The patient is status post left total hip replacement. There is good alignment. Expected postoperative soft tissue changes are seen with the subcutaneous edema and fullness of the overlying musculature. Tiny air bubbles are seen within the soft tissues. No significant postoperative hematoma or fluid collection is seen. CT/Extremity Lower WITH Contrast IMPRESSION: Status post left total hip replacement. There is good alignment. Expected postoperative soft tissue changes overlying the left hip replacement. Electronically Signed: Bernard Pettit MD at 8:32 EDT Tel [phone], Service support , CC: Jerad Tyler MD; Jose Alvarez MD Marinator: Signed Observed: 12/14/2017 Status: F Source: [place] CULTURE, BLOOD (WB) 4:14 AM [facility] REPOSITORY Has pt arrived? Y BC No growth in 5 days. Performed By: #### M200.1000 #### [facility] [address] [place], [address] COMPREHENSIVE METABOLIC Collected: 12/14/2017 Status: F Source: [facility] 4:06 AM [facility] REPOSITORY TYPE CODE TESTS RESULT OUT OF RANGE REFERENCE UNITS LAB L501.0100 74-106 mg/dL Normal GLU 101 Result Comment: Fasting Glucose result from 100 to 125 mg/dL suggests IMPAIRED HOMEOSTASIS per A.D.A. criteria. Please note revised GLUCOSE reference range effective 2017. LAB L501.1000 7-18 mg/dL Normal BUN 10 LAB L501.1100 0.70-1.30 mg/dL Normal CREAT,SERUM 0.73 Result Comment: The validity of the calculated GFR AND GFRAA in patients over 70 years has not been determined. Clinical correlation is essential. LAB L501.1110 >60 mL/min Normal EST GFR 117 Result Comment: Non- GFR Calc LAB L501.1115 >60 mL/min Normal EST GFR - AA 142 Result Comment: GFR Calc LAB L501.1255 ml/min Normal Estimated CRCL 108.01 LAB L501.1300 10-20 RATIO BUN/CRE Normal 13.7 LAB L501.1500 6.4-8. g/dL Low 2 T PROT 5.4 LAB L501.1800 3.2-5. g/dL Low 0 ALB 2.2 LAB L501.1950 2.2-4. g/dL 2 GLOB Normal 3.2 LAB L501.2000 0.9-2. RATIO Low 4 A/G 0.7 LAB L501.2200 8.5-10 mg/dL Low .1 CA 7.4 LAB L501.4100 15-37 U/L AST Normal 21 LAB L501.4305 45-117 U/L Low ALK P 44 LAB L501.4405 16-61 U/L ALT Normal 16 LAB L501.4600 0.20-1 mg/dL .00 T BILI Normal 0.20 LAB L501.5300 136-14 mmol/L 5 NA Normal 141 LAB L501.5600 3.5-5. mmol/L 1 K Normal 3.6 LAB L501.5900 98-107 mmol/L High CL 108 LAB L501.6100 21.0-3 mmol/L 2.0 CO2 Normal 25.0 LAB L501.6200 5-15 GAP Normal 8 Performed By: #### L500.4050 #### [facility] [address] [place], [address] LACTIC ACID Collected: 12/14/2017 Status: F Source: [place] 4:06 AM [facility] REPOSITORY Order Comment: Yes/No query for Sepsis Lactate Rule Y TYPE CODE TESTS RESULT OUT OF RANGE REFERENCE UNITS LAB L503.6005 0.4-2.0 mmol/L Normal LACTIC ACID 0.9 Performed By: #### L503.6005 #### [facility] [address] [place], [address] CBC W/DIFF, AUTOMATED Collected: 12/14/2017 Status: F Source: [place] 4:06 AM [facility] REPOSITORY TYPE CODE TESTS RESULT OUT OF RANGE REFERENCE UNITS LAB L100.1000 4.4-11.0 K/mm3 Normal WBC 7.9 LAB L100.1200 4.6-6.2 M/mm3 Low RBC 3.64 LAB L100.1300 13.0-16.5 g/dl Low HGB 10.9 LAB L100.1400 40-54 % Low HCT 33.3 LAB L100.1500 80-94 fL Normal MCV 91.5 LAB L100.1600 27.0-32.0 pg Normal MCH 29.9 LAB L100.1700 32-36 g/gl Normal MCHC 32.7 LAB L100.1810 11.6-14.6 % Normal RDW CV 14.0 LAB L100.1820 35.1-43.9 fl High RDW SD 46.3 LAB L100.1900 150-450 K/mm3 Low PLT 98 LAB L100.2000 6.2-12.0 fl Normal MPV 10.3 LAB L100.2100 47-70 % Normal NEUT% 60.4 LAB L100.2200 19-41 % Normal LY% 20.1 LAB L100.2300 0-10 % High MONO% 16.6 LAB L100.2400 0-5 % Normal EO% 2.4 LAB L100.2500 0-1 % Normal BASO% 0.4 LAB L100.2550 0.0-0.9 % Normal IM GRAN % 0.100 Result Comment: IG% - Immature Granulocytes (promyelocytes, myelocytes and metamyelocytes) > 1% indicates that a LEFT SHIFT is Present. LAB L100.2620 2.0-7.7 X10 3/uL Normal Absolute Neut 4.8 LAB L100.2720 0.83-4.51 X10 3/ul Normal Absolute Lymph 1.59 Performed By: #### L100.0100 #### [facility] [place], [address] Observed: 12/14/2017 Status: F Source: [facility] CULTURE, BLOOD (WB) 4:06 AM [facility] REPOSITORY Has pt arrived? Y BC No growth in 5 days. Performed By: #### M200.1000 #### [facility] [address] [place], [address] PTHIN Collected: 12/13/2017 Status: F Source: [place] 3:02 PM [facility] REPOSITORY TYPE CODE TESTS RESULT OUT OF RANGE REFERENCE UNITS LAB L509.1000 18.4-80.1 pg/mL High PTHIN 94.6 Performed By: #### L509.1000 #### [facility] [address] [place], [address] VITAMIN D 1,25-DIHYDROXY Collected: 12/13/2017 Status: F Source: [place] 3:02 PM [facility] REPOSITORY TYPE CODE TESTS RESULT OUT OF RANGE REFERENCE UNITS LAB L3300.0960 19.9-79.3 pg/mL Low VITD 1,25 18.3 72958 Result Comment: Performed at: - [facility] [id number] Marketing Production Coordinator: Dante Church MD, Phone: [phone] Performed By: #### L3300.0960 #### [facility] (refer to report for specific site) refer to report for address and phone number CBC-COMPLETE BLOOD CNT Collected: 12/13/2017 Status: F Source: [place] NO DIFF 11:49 AM [facility] REPOSITORY Order Comment: Comments: To be done in PACU FREE T4 CAN BE RAN OFF OF AM DRAW. BMP AND CBC DONE IN PACU PER YAYO JIMENEZ TYPE CODE TESTS RESULT OUT OF RANGE REFERENCE UNITS LAB L100.1000 4.4-11.0 K/mm3 High WBC 12.3 LAB L100.1200 4.6-6.2 M/mm3 Normal RBC 4.80 LAB L100.1300 13.0-16.5 g/dl Normal HGB 14.4 LAB L100.1400 40-54 % Normal HCT 44.8 LAB L100.1500 80-94 fL Normal MCV 93.3 LAB L100.1600 27.0-32.0 pg Normal MCH 30.0 LAB L100.1700 32-36 g/gl Normal MCHC 32.1 LAB L100.1810 11.6-14.6 % Normal RDW CV 14.1 LAB L100.1820 35.1-43.9 fl High RDW SD 48.1 LAB L100.1900 150-450 K/mm3 Low PLT 126 LAB L100.2000 6.2-12.0 fl Normal MPV 9.7 Performed By: #### L100.0500 #### [place] [facility] [address] [place], [place], [address] BASIC METABOLIC Collected: 12/13/2017 Status: F Source: [place] PROFILE (BMP) 11:49 AM [facility] REPOSITORY Order Comment: TO BE DONE IN PACU FREE T4 CAN BE RAN OFF OF AM DRAW. BMP AND CBC DONE IN PACU PER YAYO RN Comments: ok to add on TYPE CODE TESTS RESULT OUT OF RANGE REFERENCE UNITS LAB L501.0100 74-106 mg/dL High GLU 127 Result Comment: Fasting Glucose result greater than or equal to 126 mg/dL suggests DIABETES MELLITUS per A.D.A. criteria. Please note revised GLUCOSE reference range effective 2017. LAB L501.1000 7-18 mg/dL Normal BUN 11 LAB L501.1100 0.70-1.30 mg/dL Normal CREAT,SERUM 0.91 Result Comment: The validity of the calculated GFR AND GFRAA in patients over 70 years has not been determined. Clinical correlation is essential. LAB L501.1110 >60 mL/min Normal EST GFR 92 Result Comment: Non- GFR Calc LAB L501.1115 >60 mL/min Normal EST GFR - AA 111 Result Comment: GFR Calc LAB L501.1255 ml/min Normal Estimated CRCL 86.65 LAB L501.1300 10-20 RATIO Normal BUN/CRE 12.1 LAB L501.2200 8.5-10 mg/dL Low .1 CA 7.9 LAB L501.5300 136-14 mmol/L Normal 5 NA 141 LAB L501.5600 3.5-5. mmol/L Normal 1 K 4.0 LAB L501.5900 98-107 mmol/L Normal CL 107 LAB L501.6100 21.0-3 mmol/L Normal 2.0 CO2 24.0 LAB L501.6200 5-15 Normal GAP 10 Performed By: #### L500.2500, L506.0400 #### [facility] [address] [place], [place], [id number] T4 FREE DIRECT Collected: 12/13/2017 Status: F Source: [place] 11:49 AM [facility] REPOSITORY Order Comment: TO BE DONE IN PACU FREE T4 CAN BE RAN OFF OF AM DRAW. BMP AND CBC DONE IN PACU PER YAYO RN Comments: ok to add on TYPE CODE TESTS RESULT OUT OF RANGE REFERENCE UNITS LAB L506.0400 0.76-1.46 ng/dL Normal T4 FREE 1.19 DIRECT Performed By: #### L500.2500, L506.0400 #### [facility] [address] [place], [address] OPERATIVE REPORT Observed: 12/13/2017 Status: F Source: [place] 11:06 AM [facility] REPOSITORY [facility] Medical Records Department [address] [place] [address] Operative Report 12/13/17 1059 MR#: [id number] Acct: [id number] Name: MIKE BLANTON Rep #: [id number] : 1960 57 From: Stevo Walden DO PCP: Jose Alvarez MD, Chi Status: ADM IN Y [place] [facility] [id number] Operative Report Date of Procedure: 12/13/17 Primary Surgeon/Physician: Stevo Walden editorial specialist: Rudi Rhodes PA-c editorial specialist: Pre-Operative Diagnosis: Displaced subcapital left hip fx Post-Operative Diagnosis: same Surgery/Procedure Performed: Left THR Estimated Blood Loss: 100cc Specimen's Removed: femoral head Type of Anesthesia: General ASA Class: ASA3 Severe Disease Implants: [Warwick Accolade type 2 size 8 stem, 54 mm hemispherical cup with MDM liner ] Surgical Indications: Patient has a displace subcapital fracture in the [left ] hip. The pain affects their ability to enjoy life and complete activities of daily living without discomfort. Patient has consented to undergo the above procedure Procedure Description: The patient was greeted in the preoperative area the [left ] hip was marked with surgical marker preoperative antibiotics administered. The patient was then taken to or suite in stable condition. Preoperative tranexamic acid was also utilized. Once the patient was placed in the supine position on the operating room table and once adequate anesthesia was obtained they were then placed in the lateral decubitus position with the surgical hip facing the field. All bony prominences were well-padded. A commercial hip position was utilized. The appropriate extremity was then prepped and draped in usual sterile fashion. Ioban was placed on the skin. Surgical timeout was performed and surgery was commenced. A standard posterior approach to the hip was then performed. Incision was planned and carried out with a #10 blade scalpel. Dissection was then carried length of the incision to the IT band which was split proximally and distally. A Charnley retractor was then placed for soft tissue retraction exposing the piriformis. A standard posterior capsulotomy was performed. A midcervical fracture of the femoral neck was identified.. A femoral neck osteotomy guide was used to sweta the proximal femur. A femoral osteotomy was then created approximately 1 fingerbreadth above the lesser trochanter. This was measured and placed on the back table. Once this was complete acetabular retractors were placed anteriorly and posteriorly. Labrum was then removed from the acetabulum exposing the entire cup of the acetabulum. Sequential reaming was then commenced and the acetabulum was medialized and sequentially widened in order to accommodate appropriate size cup. The acetabular cup was then impacted into position to the appropriate depth referencing approximately 30 anteversion and 45 of inclination. Excellent purchase was obtained. An appropriate size MDM liner was then placed. Attention was then turned to the femoral preparation. The hip was placed in the 90/90 position and a lateralizing box osteotome was utilized. Femoral starting awl was used followed by sequential broaching to the appropriate size. Excellent purchase was obtained with the stem no stem subsidence and excellent rotational stability was confirmed. A calcar reamer was then used in the trial head neck was placed on the broach. The hip was then located and taken through full range of motion flexion internal and external rotation as well as extension. Excellent stability was noted no impingement was identified of the components and leg lengths appear to be appropriate. The hip was at this point dislocated and the trial femoral components were removed. The final femoral stem was then implanted and impacted to the appropriate depth. Again excellent purchase was obtained no stem subsidence or rotational instability was noted. The hip was once again trialed and confirmation of leg length and stability was performed. Soft tissue tension also appeared to be appropriate. At this point the hip was redislocated and the trunnion was cleaned and dried meticulously in the appropriate size MDM femoral head was placed on the clean dry trunnion using a 12/14 Guardado taper. The hip was once again relocated and again taken through full range of motion. I did inject a cocktail of postoperative pain medication in the deep and superficial tissues. Copious irrigation was performed. Anatomic closure of the piriformis tendon was performed through drill holes in the greater trochanter. A #1 Vicryl 0 Vicryl was utilized in subcutaneous tissue and surgical shruthi were placed in the skin. A well-padded nonadherent dressing was applied. Patient was taken to PACU in stable condition. No complications were identified. Will follow standard postop protocol for total hip arthroplasty. My syrup mixer assistant played a vital role in the procedure beginning with positioning, holding retraction of soft tissues, positioning the leg to optimize visualization during the procedure and assisting with wound closure. 12/13/17 1106 <Electronically signed by Stevo Walden DO> Date Stevo Walden DO CC: Stevo Walden DO; Mike Cardenas MD; Jose Alvarez MD Signed HIP MIN 2 VIEWS Observed: 12/13/2017 Status: F Source: [place] (PORTABLE) 9:43 AM [facility] REPOSITORY [facility] Imaging Services [address] [place] [id number] Hip Min 2 Views (Portable) MR#: [id number] Acct: [id number] Name: MIKE BLANTON Rep #: [id number] : 1960 M 57 From: Harshil Lee MD PCP: Jose Alvarez MD, Chi Status: ADM IN Study: Hip Min 2 Views (Portable) Date of Exam: 12/13/17 Exam# [id number] Ordering Dr: Stevo Walden DO STUDY: X-RAY - FRONTAL AND LATERAL VIEWS OF THE HIPS REASON FOR EXAM: Male, 57 years old. Postop total hip replacement. TECHNIQUE: Radiological exam, hip, bilateral; 2 images COMPARISON: Frontal and lateral views of the left femur December 12, 2017. FINDINGS: There is a non-specific bowel gas pattern. Normal visualized soft tissue structures. There is diffuse demineralization of the osseous structures. There is mild narrowing of the visualized sacroiliac joints, consistent with degenerative osteoarthritic changes. Normal visualized bilateral iliac wings and sacrum. Normal bilateral superior and inferior pubic rami. Normal pubic symphysis. Normal bilateral ischial tuberosities. The patient has undergone prior right total hip arthroplasty, with a metal bipolar prosthesis in place. The patient has now undergone left total hip arthroplasty. Following resection of the femoral head and neck, a metal bipolar hip prosthesis was placed. The femoral and acetabular components appear well seated, and in anatomic alignment. Gas lucencies in the adjacent soft tissues are consistent with recent surgery. A number of metal skin shruthi are seen along the lateral soft tissues as well. There is no demonstrated acute fracture. RAD/Hip Min 2 Views (Portable) IMPRESSION: Status post left total hip arthroplasty. Electronically Signed: Jan Lee MD at 12:11 EDT , Service support , CC: Stevo Walden DO; Jose Alvarez MD Marinator: Signed HISTORY AND PHYSICAL Observed: 12/13/2017 Status: F Source: [place] EXAM 9:27 AM [facility] REPOSITORY [facility] Medical Records Department [address] [place] [address] History and Physical 12/12/172025 MR#: [id number] Acct: [id number] Name: MIKE BLANTON Rep #: [id number] : 1960 57 From: Jerad Tyler MD PCP: Jose Alvarez MD, Chi Status: ADM IN [id number] Problem List (1) Nondisplaced fracture of neck of left femur Status: Acute (2) Multiple falls Status: Acute (3) Compression fx, thoracic spine Status: Acute History of Present Illness Date of Admission: 12/12/17 Chief Complaint: Multiple falls The patient is a 57 year old M with a significant history of Parkinson disease and epilepsy who presented with a fall on the same day of his admission. Also patient reports of excruciating pain in his left hip and in his right rib. At emergency department radiographic findings showed and Nondisplaced fracture of left femoral neck; numerous compression fractures of the thoracic spine of indeterminate age. ED doctor consulted orthopedic doctor who will see patient in a.m. Of note in the past week patient had multiple falls. It is reported that anytime patient have high phenobarbital levels patient falls. On admission at the ED patient was found to have elevated phenobarbital level. Past Medical History Medical History: Medical History (Last Reviewed 12/12/17 @ 21:51 by Jerad Tyler MD) BPH (benign prostatic hyperplasia) N40.0 Parkinson disease G20 Seizure disorder G40.909 Allergies No Known Allergies Allergy (Verified 12/12/17 17:43) Home Medications: Ambulatory Orders Medication Instructions Recorded atorvastatin 40 mg tablet 40 mg PO QHS 12/03/17 celecoxib 200 mg capsule 200 mg PO BID 12/03/17 divalproex 250 mg tablet,delayed 500 mg PO QHS 12/03/17 Surgical History: Surgical History (Last Reviewed 12/13/17 @ 09:21 by Jerad Tyler MD) S/P hip replacement Z96.649 Surgical History: - - Patient with a prior Right hip replacement Smoking Status: Current every day smoker Tobacco Use: Chew Alcohol: None - *Family History Maternal Family History: Family History (Last Updated 12/12/17 @ 21:53 by Jerad Tyler MD) Mother Breast cancer Father Mouth cancer Review of Systems Constitutional: Denies: Chills, Fever, Weight Change HEENT: Denies: Head Aches, Sinus Congestion, Sinus Drainage Cardiovascular: Denies: Chest Pain, Palpitations Respiratory: Denies: Cough, Shortness of breath at rest, Sputum production Gastrointestinal: Denies: Abdominal Pain, Nausea, Vomiting Genitourinary: Denies: Dysuria Musculoskeletal: Denies: Joint Pain, Joint Tenderness Skin: Denies: Rash, Wounds Neurological: Denies: Numbness, Tingling, Focal weakness Psychiatric: Denies: Anxiety, Depression, Homicidal Ideations, Suicidal Ideations Hematologic/ Lymphatic: Denies: Easy Bruising, Easy Bleeding VTE Information - Inpt Only VTE Present on Admission: No VTE Mechan Device Prophylaxis: None VTE Pharm Prophylaxis ordered?: Yes Patient Problems: Active and Suspected Problems (Last Reviewed 12/12/17 @ 21:51 by Jerad Tyler MD) Nondisplaced fracture of neck of left femur (Acute) Multiple falls (Acute) Compression fx, thoracic spine (Acute) - Physical Exam General: Alert, Oriented x3, Cooperative HEENT: Atraumatic, PERRLA, EOMI, Normocephalic Neck: Supple, No JVD, Negative Carotid Bruits Lungs: Clear to auscultation, Normal air movement Cardiovascular: Regular rate, No murmurs Abdomen: Bowel Sounds Present, Soft, Non Tender Extremities: No edema, Capillary Refill Less than 3 Seconds, - - Right flank tenderness Skin: No rashes, No breakdown Musculoskeletal: - - Palpation of left hip did not produce any tenderness. Neurological: - - Noted to have bilateral hands tremor. Psych/Mental Status: Normal Affect, Appropriate Vital Signs Temp Pulse Resp BP Pulse Ox 99.3 F H 103 H 18 114/98 H 98 12/12/17 20:20 12/12/17 20:20 12/12/17 20:20 12/12/17 20:20 12/12/17 20:20 Oxygen Flow Rate (L/min) 2 Oxygen Delivery Method Nasal Cannula Weight: 71.9 kg Body Mass Index (BMI) 24.0 Laboratory Tests Past 24 Hrs Assessment/Plan All Active Problems (Last Reviewed 12/12/17 @ 21:51 by Jerad Tyler MD) Nondisplaced fracture of neck of left femur (Acute) Multiple falls (Acute) Compression fx, thoracic spine (Acute) The patient is a 57 year old M with a significant history of Parkinson disease and epilepsy who presented with a fall and found to have elevated phenobarbital level and radiographic findings of Nondisplaced fracture of left femoral neck; and numerous compression fractures of the thoracic spine of indeterminate age. Impacted nondisplaced fracture of the left femoral neck with no dislocation of the hip Pain controlled with oxycodone as needed morphine as needed. Antiemetics and bowel regimen in the setting of narcotic use initiated. PT/INR ordered. Patient has no chest pain. Will order EKG for baseline Okay to proceed with surgery from medical standpoint. Orthopedic surgeon consulted. Celebrex continued Compression fracture of the thoracic spine of indeterminate age Pain control as above. Incentive spirometer to prevent pneumonia. We will defer further management to orthopedic. History of epilepsy Phenobarbital held at this time due to supratherapeutic level. Valproic acid continued Dilantin continued Consider conversation with neurology. Hypothyroidism Synthroid continued. Depression Remeron continued Parkinson disease Patient noted with no medication for Parkinson's Consider conversation with PCP. BPH Flomax continued Hyperlipidemia Lipitor continued. Tobacco abuse Patient chew tobacco Nicotine patch ordered Inpatient consult smoking cessation. DVT prophylaxis Subcutaneous heparin. Code Visit Inpatient E AND M: [id number] Init Hosp L3 12/13/17 0927 <Electronically signed by Jerad Tyler MD> Date Jerad Tyler MD Cosign Signature: Date (if applicable) CC: Jerad Tyler MD; Jose Alvarez MD Signed BASIC METABOLIC Collected: 12/13/2017 Status: F Source: [place] PROFILE (BMP) 6:55 AM [facility] REPOSITORY TYPE CODE TESTS RESULT OUT OF RANGE REFERENCE UNITS LAB L501.0100 74-106 mg/dL High GLU 112 Result Comment: Fasting Glucose result from 100 to 125 mg/dL suggests IMPAIRED HOMEOSTASIS per A.D.A. criteria. Please note revised GLUCOSE reference range effective 2017. LAB L501.1000 7-18 mg/dL Normal BUN 12 LAB L501.1100 0.70-1.30 mg/dL Normal CREAT,SERUM 0.89 Result Comment: The validity of the calculated GFR AND GFRAA in patients over 70 years has not been determined. Clinical correlation is essential. LAB L501.1110 >60 mL/min Normal EST GFR 93 Result Comment: Non- GFR Calc LAB L501.1115 >60 mL/min Normal EST GFR - AA 113 Result Comment: GFR Calc LAB L501.1255 ml/min Normal Estimated CRCL 88.60 LAB L501.1300 10-20 RATIO Normal BUN/CRE 13.5 LAB L501.2200 8.5-10 mg/dL Low .1 CA 8.2 LAB L501.5300 136-14 mmol/L Normal 5 NA 141 LAB L501.5600 3.5-5. mmol/L Normal 1 K 3.6 LAB L501.5900 98-107 mmol/L Normal CL 105 LAB L501.6100 21.0-3 mmol/L Normal 2.0 CO2 27.0 LAB L501.6200 5-15 Normal GAP 9 Performed By: #### L500.2500 #### [facility] [place], [place], [address] THYROID STIM HORMONE Collected: 12/13/2017 Status: F Source: [facility] (TSH) 6:55 AM [facility] REPOSITORY TYPE CODE TESTS RESULT OUT OF RANGE REFERENCE UNITS LAB L501.9520 0.358-3.74 uIU/mL High TSH 4.78 Performed By: #### L501.9520 #### [facility] [place], [address] CBC W/DIFF, AUTOMATED Collected: 12/13/2017 Status: F Source: [place] 6:55 AM [facility] REPOSITORY TYPE CODE TESTS RESULT OUT OF RANGE REFERENCE UNITS LAB L100.1000 4.4-11.0 K/mm3 Normal WBC 7.9 LAB L100.1200 4.6-6.2 M/mm3 Normal RBC 4.60 LAB L100.1300 13.0-16.5 g/dl Normal HGB 13.9 LAB L100.1400 40-54 % Normal HCT 42.2 LAB L100.1500 80-94 fL Normal MCV 91.7 LAB L100.1600 27.0-32.0 pg Normal MCH 30.2 LAB L100.1700 32-36 g/gl Normal MCHC 32.9 LAB L100.1810 11.6-14.6 % Normal RDW CV 13.9 LAB L100.1820 35.1-43.9 fl High RDW SD 45.8 LAB L100.1900 150-450 K/mm3 Low PLT 124 LAB L100.2000 6.2-12.0 fl Normal MPV 10.1 LAB L100.2100 47-70 % Normal NEUT% 68.4 LAB L100.2200 19-41 % Low LY% 18.3 LAB L100.2300 0-10 % High MONO% 10.3 LAB L100.2400 0-5 % Normal EO% 2.4 LAB L100.2500 0-1 % Normal BASO% 0.3 LAB L100.2550 0.0-0.9 % Normal IM GRAN % 0.300 Result Comment: IG% - Immature Granulocytes (promyelocytes, myelocytes and metamyelocytes) > 1% indicates that a LEFT SHIFT is Present. LAB L100.2620 2.0-7.7 X10 3/uL Normal Absolute Neut 5.4 LAB L100.2720 0.83-4.51 X10 3/ul Normal Absolute Lymph 1.44 Performed By: #### L100.0100 #### [facility] [address] [place], [address] PROTHROMBIN TIME W/INR Collected: 12/13/2017 Status: F Source: [place] 6:55 AM [facility] REPOSITORY TYPE CODE TESTS RESULT OUT OF RANGE REFERENCE UNITS LAB L300.4150 11.7-14.9 SECONDS Normal PROTIME 14.7 LAB L300.4200 Normal INR 1.2 Performed By: #### L300.3900 #### [facility] [address] [place], [address] TYPE AND SCREEN Collected: 12/13/2017 Status: F Source: [place] 6:55 AM [facility] REPOSITORY Order Comment: Reason for Type AND Screen/Red Cells: SURGERY Type of Surgery: FRACTURED HIP TYPE CODE TESTS RESULT OUT OF RANGE REFERENCE UNITS LAB B10.0800 A Normal BLOOD TYPE GEL NEGATIVE LAB B100.4000 Normal Antibody NEGATIVE Screen Performed By: #### B101.7450 #### [facility] [address] [facility] [place], [address] TOTAL HIP REPLACEMENT Observed: 12/13/2017 Status: F Source: [place] 12:00 AM [facility] REPOSITORY Patient: MIKE BLANTON : 1960 (57/M) Acct Num: [id number] Phys: Dexter Vásquez MD Unit Num: [id number] Loc: MS3 ST027-1 Specimen: [id number] Received: 12/13/171499 Spec Type: TOTAL HIP TISSUES 1 TISSUES: Hip, NOS GROSS DESCRIPTION Received in fixative is one container labeled with the patient's name and designated left hip bone and soft tissue. The specimen consists of a femoral head measuring 5 x 4.5 x 4.5 cm. The articular surface is smooth. The resection margin is irregular and hemorrhagic. Also present in the container are multiple detached pieces of bone and bone reamings measuring in aggregate 6 x 6 x 3 cm. A piece of angela, indurated tissue is noted measuring 3 x 1 x 0.5 cm. Rail Bender sections are submitted in three cassettes as follows: 1 - indurated piece of tissue, entirely submitted, 2 - femoral head, 3 - detached pieces of bone. Cassettes 2 AND 3 are submitted after decalcification. / DARSHAN:sanna 12/13/17 CPT: 94456, 17709 HEADER OPERATION: Total hip replacement PRE-OP DIAGNOSIS: Nondisplaced fracture of neck of left femur TISSUE SUBMITTED: Left hip bone and soft tissue MICROSCOPIC DESCRIPTION Slides are reviewed. MICROSCOPIC DIAGNOSIS Left hip bone and soft tissue, total hip replacement: Femoral head and detached pieces of bone with focal area of hemorrhage, clinically nondisplaced fracture of neck of left femur. A piece of dense fibroconnective tissue. SJ:sanna 12/16/17 Signed Savage Rosario 12/16/17 <signature on file> Performed By: #### PHIP #### [facility] [address] [facility] [place], [address] EMERGENCY DEPARTMENT Observed: 12/12/2017 Status: F Source: [place] SUMMARY 11:38 PM [facility] REPOSITORY [facility] Medical Records Department [address] [place] [address] Emergency Department Summary 12/12/17 1803 MR#: [id number] Acct: [id number] Name: MIKE BLANTON Rep #: [id number] : 1960 57 From: Ruma Kiser MD PCP: Antonio LEAVITT,Jose Leonardo Status: ADM IN - ER Visit Summary Date of Service: 12/12/17 Chief Complaint: Fall History of Present Illness: The patient is a 57 M with history of Parkinson's and seizures. Patient states that he fell around 9 AM this morning. He is not sure if his feet just got tangled or if he got lightheaded. He has reportedly had multiple falls recently. He is been able to ambulate with a walker since that time. He is complaining of pain to the right lower ribs as well as to the proximal medial left thigh. He has not yet taken anything for pain. He denies striking his head or loss of consciousness Physical Examination: Blood pressure is 103/84, temperature 98.2, heart rate 107, respiratory rate 16, pulse ox 94% on room air. Patient sitting upright in bed. He is in no acute distress. Head neck examination reveals no sign of trauma. Heart is slightly tachycardic and regular. Lung sounds are clear with good air movement bilaterally. He does have reproducible tenderness of the right lower anterior ribs. There is no crepitus. There are no abrasions or ecchymosis noted. Abdomen is soft with epigastric tenderness. There is no guarding or rebound. Lower extremity examination reveals mild tenderness over the medial proximal left thigh. There is no pain with logroll. He has old appearing abrasions noted to the anterior left knee. Neuro exam reveals Parkinson's tremor. There are no focal deficits noted. Test Results: Left femur x-rays reveal an impacted nondisplaced fracture of the left femoral neck. CT the chest shows COPD changes. There are numerous compression fractures of indeterminate age. CT abdomen pelvis shows no definite acute abnormality. CBC was a white count 11.8 with 140,000 platelet count. Chemistry studies significant for potassium 3.4. Dilantin level is 16.1. Phenobarbital is high at 52.4. Emergency Department Course and Treatment: Patient was given morphine and Zofran along with IV fluids. On repeat evaluation he is resting comfortably. Patient had previously had surgery with Dr. Duke. I spoke with Dr. Cardenas as well as the hospitalist. Treatment Plan: [] Disposition: Admit Impression: 1. Fall with left femoral neck fracture 2. Supratherapeutic phenobarbital level. This note was generated with [employer] dictation software. It may contain incorrect words, spelling, and punctuation that were not noted in review of the chart prior to signing ED Disposition - Plan for ED Patient: Chief Complaint: Fall Referrals: Jose Alvarez Chi, MD [Primary Care Provider] - What to do if you have Problems For any increased pain, shortness of breath, bleeding, nausea or vomiting, chest pain, or any unexpected problems, contact your Primary Care Provider. Call [facility] ([phone]) or report to the closest Emergency Room. Call 911 if necessary. 12/12/17 6357 <Electronically signed by Ruma Kiser MD> Date Ruma Kiser MD Cosigner Signature (If Indicated): Date CC: Jose Alvarez MD CBC W/DIFF, AUTOMATED Collected: 12/12/2017 Status: F Source: DELLA 6:05 PM [facility] REPOSITORY TYPE CODE TESTS RESULT OUT OF RANGE REFERENCE UNITS LAB L100.1000 4.4-11.0 K/mm3 High WBC 11.8 LAB L100.1200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 OUT OF RANGE REFERENCE UNITS LAB L501.0100 74-106 mg/dL Normal GLU 80 Result Comment: Please note revised GLUCOSE reference range effective 2017. LAB L501.1000 7-18 mg/dL Normal BUN 16 LAB L501.1100 0.70-1.30 mg/dL Normal CREAT,SERUM 1.01 Result Comment: The validity of the calculated GFR AND GFRAA in patients over 70 years has not been determined. Clinical correlation is essential. LAB L501.1110 >60 mL/min Normal EST GFR 81 Result Comment: Non- GFR Calc LAB L501.1115 >60 mL/min Normal EST GFR - AA 98 Result Comment: GFR Calc LAB L501.1300 10-20 RATIO Normal BUN/CRE 15.8 LAB L501.1500 6.4-8.2 g/dL High T PROT 8.5 LAB L501.1800 3.2-5.0 g/dL Normal ALB 4.3 LAB L501.1950 2.2-4.2 g/dL Normal GLOB 4.2 LAB L501.2000 0.9-2.4 RATIO Normal A/G 1.0 LAB L501.2200 8.5-10.1 mg/dL CA Normal 9.1 LAB L501.4100 15-37 U/L Normal AST 25 LAB L501.4305 45-117 U/L Normal ALK P 70 LAB L501.4405 16-61 U/L Normal ALT 17 LAB L501.4600 0.20-1.00 mg/dL T Normal BILI 0.30 LAB L501.5300 136-145 mmol/L NA Normal 137 LAB L501.5600 3.5-5.1 mmol/L K Normal 3.8 LAB L501.5900 98-107 mmol/L CL Normal 99 LAB L501.6100 21.0-32.0 mmol/L Normal CO2 27.0 LAB L501.6200 5-15 Normal GAP 11 Performed By: #### L500.4050, L501.9520, L501.9910 #### [facility] [address] [place], [address] THYROID STIM HORMONE Collected: 12/01/2017 Status: F Source: [place] (TSH) 2:54 PM [facility] REPOSITORY TYPE CODE TESTS RESULT OUT OF RANGE REFERENCE UNITS LAB L501.9520 0.358-3.74 uIU/mL Normal TSH 2.29 Performed By: #### L500.4050, L501.9520, L501.9910 #### [facility] [address] [place], [address] PSA,TOTAL - ANNUAL Collected: 12/01/2017 Status: F Source: [place] SCREEN 2:54 PM [facility] REPOSITORY TYPE CODE TESTS RESULT OUT OF RANGE REFERENCE UNITS LAB L501.9910 0.00-4.00 ng/mL Normal PSA,TOT 0.58 SCREEN Result Comment: This test was performed using the TPSA assay method for the [employer] chemistry system. Values obtained with different assay methods cannot be used interchangably. When changing PSA assays in the course of monitoring a patient, additional sequential testing should be carried out to confirm baseline values. Performed By: #### L500.4050, L501.9520, L501.9910 #### [facility] [address] [place], [place], [address] CBC W/DIFF, AUTOMATED Collected: 12/01/2017 Status: F Source: [place] 2:54 PM [facility] REPOSITORY TYPE CODE TESTS RESULT OUT OF RANGE REFERENCE UNITS LAB L100.1000 4.4-11.0 K/mm3 Normal WBC 9.3 LAB L100.1200 4.6-6.2 M/mm3 Low RBC 2.05 LAB L100.1300 13.0-16.5 g/dl Low HGB 6.7 LAB L100.1400 40-54 % Low HCT 19.2 LAB L100.1500 80-94 fL Normal MCV 93.7 LAB L100.1600 27.0-32.0 pg High MCH 32.7 LAB L100.1700 32-36 g/gl Normal MCHC 34.9 LAB L100.1810 11.6-14.6 % Normal RDW CV 14.1 LAB L100.1820 35.1-43.9 fl High RDW SD 48.1 LAB L100.1900 150-450 K/mm3 Low PLT 145 LAB L100.2000 6.2-12.0 fl Normal MPV 10.5 LAB L100.2100 47-70 % Normal NEUT% 59.3 LAB L100.2200 19-41 % Normal LY% 25.3 LAB L100.2300 0-10 % High MONO% 12.7 LAB L100.2400 0-5 % Normal EO% 2.3 LAB L100.2500 0-1 % Normal BASO% 0.3 LAB L100.2550 0.0-0.9 % Normal IM GRAN % 0.100 Result Comment: IG% - Immature Granulocytes (promyelocytes, myelocytes and metamyelocytes) > 1% indicates that a LEFT SHIFT is Present. LAB L100.2620 2.0-7.7 X10 3/uL Normal Absolute Neut 5.5 LAB L100.2720 0.83-4.51 X10 3/ul Normal Absolute Lymph 2.36 Performed By: #### L100.0100 #### [facility] [address] [facility] [place], [address] PHENYTOIN (DILANTIN) Collected: 12/01/2017 Status: F Source: [place] LEVEL 2:54 PM [facility] REPOSITORY Order Comment: Time Medication is to be Given? 0700 TYPE CODE TESTS RESULT OUT OF RANGE REFERENCE UNITS LAB L501.7700 10.0-20.0 mL Normal PHENYTOIN 14.6 Performed By: #### L501.7700, L501.8100, L501.8500 #### [facility] [address] [place], [place], [address] VALPROIC ACID Collected: 12/01/2017 Status: F Source: [place] (DEPAKENE) LEVEL 2:54 PM [facility] REPOSITORY Order Comment: Time Medication is to be Given? 0700 TYPE CODE TESTS RESULT OUT OF RANGE REFERENCE UNITS LAB L501.8100 50-100 ug/mL Normal VALPROIC ACID 72 Performed By: #### L501.7700, L501.8100, L501.8500 #### [facility] [address] [place], [address] PHENOBARBITAL Collected: 12/01/2017 Status: F Source: [place] 2:54 PM [facility] REPOSITORY Order Comment: Time Medication is to be Given? 0700 TYPE CODE TESTS RESULT OUT OF REFERENCE UNITS RANGE LAB L501.8500 10.0-40.0 ug/mL High alert PHENOBARB 52.7 Result Comment: Critical Result(s) Called at: 18:08:09 12/01/2017 by: Anastasiya ALVAREZ Phenobarbital concentrations greater than 40.0 ug/mL are potentially toxic. Performed By: #### L501.7700, L501.8100, L501.8500 #### [facility] [address], [address] CBC W/DIFF, AUTOMATED Collected: 10/01/2017 Status: F Source: [place] 12:33 PM [facility] REPOSITORY TYPE CODE TESTS RESULT OUT OF RANGE REFERENCE UNITS LAB L100.1000 4.4-11.0 K/mm3 High WBC 12.8 LAB L100.1200 4.6-6.2 M/mm3 Normal RBC 4.71 LAB L100.1300 13.0-16.5 g/dl Normal HGB 14.1 LAB L100.1400 40-54 % Normal HCT 42.7 LAB L100.1500 80-94 fL Normal MCV 90.7 LAB L100.1600 27.0-32.0 pg Normal MCH 29.9 LAB L100.1700 32-36 g/gl Normal MCHC 33.0 LAB L100.1810 11.6-14.6 % Normal RDW CV 13.3 LAB L100.1820 35.1-43.9 fl Normal RDW SD 43.6 LAB L100.1900 150-450 K/mm3 Normal PLT 265 LAB L100.2000 6.2-12.0 fl Normal MPV 9.8 LAB L100.2100 47-70 % Normal NEUT% 66.4 LAB L100.2200 19-41 % Normal LY% 19.7 LAB L100.2300 0-10 % Normal MONO% 8.9 LAB L100.2400 0-5 % Normal EO% 4.1 LAB L100.2500 0-1 % Normal BASO% 0.7 LAB L100.2550 0.0-0.9 % Normal IM GRAN % 0.200 Result Comment: IG% - Immature Granulocytes (promyelocytes, myelocytes and metamyelocytes) > 1% indicates that a LEFT SHIFT is Present. LAB L100.2620 2.0-7.7 X10 3/uL High Absolute Neut 8.5 LAB L100.2720 0.83-4.51 X10 3/ul Normal Absolute Lymph 2.51 Performed By: #### L100.0100 #### [facility] [address] [place], [address] COMPREHENSIVE METABOLIC Collected: 10/01/2017 Status: F Source: [facility] 12:33 PM [facility] REPOSITORY TYPE CODE TESTS RESULT OUT OF RANGE REFERENCE UNITS LAB L501.0100 74-106 mg/dL Normal GLU 83 Result Comment: Please note revised GLUCOSE reference range effective 2017. LAB L501.1000 7-18 mg/dL Normal BUN 18 LAB L501.1100 0.70-1.30 mg/dL Normal CREAT,SERUM 1.04 Result Comment: The validity of the calculated GFR AND GFRAA in patients over 70 years has not been determined. Clinical correlation is essential. LAB L501.1110 >60 mL/min Normal EST GFR 78 Result Comment: Non- GFR Calc LAB L501.1115 >60 mL/min Normal EST GFR - AA 95 Result Comment: GFR Calc LAB L501.1300 10-20 RATIO Normal BUN/CRE 17.3 LAB L501.1500 6.4-8.2 g/dL High T PROT 8.4 LAB L501.1800 3.2-5.0 g/dL Normal ALB 3.9 LAB L501.1950 2.2-4.2 g/dL High GLOB 4.5 LAB L501.2000 0.9-2.4 RATIO Normal A/G 0.9 LAB L501.2200 8.5-10.1 mg/dL CA Normal 9.1 LAB L501.4100 15-37 U/L Normal AST 31 Result Comment: Slight Hemolysis, Result may be falsely increased. LAB L501.4305 45-117 U/L Normal ALK P 81 LAB L501.4405 16-61 U/L Normal ALT 31 LAB L501.4600 0.20-1.00 mg/dL Normal T BILI 0.30 LAB L501.5300 136-145 mmol/L Normal NA 141 LAB L501.5600 3.5-5.1 mmol/L Normal K 4.0 Result Comment: Slight Hemolysis, Result may be falsely increased. LAB L501.5900 98-107 mmol/L Normal CL 105 LAB L501.6100 21.0-32.0 mmol/L Normal CO2 27.0 LAB L501.6200 5-15 Normal 9 GAP Performed By: #### L500.4050, L501.9520 #### [facility] [address] [place], [address] THYROID STIM HORMONE Collected: 10/01/2017 Status: F Source: [place] (TSH) 12:33 PM [facility] REPOSITORY TYPE CODE TESTS RESULT OUT OF RANGE REFERENCE UNITS LAB L501.9520 0.358-3.74 uIU/mL High TSH 10.90 Performed By: #### L500.4050, L501.9520 #### [facility] [address], [place], [address] UA Collected: 03/17/2017 Status: F Source: [facility] 1:46 AM [facility] REPOSITORY TYPE CODE TESTS RESULT OUT OF RANGE REFERENCE UNITS LAB SPCUA(MIS NC) UA Specimen Type Catheter LAB CLRUA(MIS NC) UA Color YELLOW LAB APPUA(MIS NC) UA Appear CLEAR LAB SGUA(LOIN C) UA Spec Abnormal Grav 1.010 LAB GLUA(LOIN mg/dL C) UA Glucose NEGATIVE LAB BILUA(MIS NC) UA Bili NEGATIVE LAB KETUA(MIS mg/dL NC) UA Ketones NEGATIVE LAB BLDUA(MIS NC) UA Blood NEGATIVE LAB PHUA(LOIN C) UA pH 6.0 LAB PROUA(MIS mg/dL NC) UA Protein NEGATIVE LAB UROUA(MIS E.U./dL NC) UA Urobilinogen 0.2 LAB NITUA(MIS NC) UA Nitrite NEGATIVE LAB LEUUA(MIS NC) UA Leuk Est NEGATIVE Performed By: #### UAMICAO, UA #### [address] [place], [place] [address] .URINALYSIS MICROSCOPIC Collected: 03/17/2017 Status: F Source: [place] [facility]) 1:46 AM [facility] REPOSITORY TYPE CODE TESTS RESULT OUT OF REFERENCE UNITS RANGE LAB WBCUA(LOIN None Seen /hpf C) UA WBC None Seen LAB RBCUA(LOIN None Seen /hpf C) UA RBC None Seen LAB EPIUA(LOIN None Seen /hpf C) UA Squam Epithelial None Seen Performed By: #### UAMICAO, UA #### [address] [place], [place] [address] CBC Collected: 03/09/2017 Status: F Source: [facility] 5:13 AM [facility] REPOSITORY TYPE CODE TESTS RESULT OUT OF REFERENCE UNITS RANGE LAB WBC(LOINC) 4.60-10.80 10 3/mcL High WBC 16.00 LAB RBCCT(LOINC 4.04-6.13 10 6/mcL ) Low RBC 4.01 LAB HGB(LOINC) 14.0-18.0 G/dL Low Hgb 12.0 LAB HCT(LOINC) 42.0-52.0 % Low Hct 36.1 LAB MCV(LOINC) 80.0-94.0 fL MCV 90.0 LAB MCH(LOINC) 27.0-31.2 pg MCH 29.8 LAB MCHC(LOINC) 31.8-35.4 G/dL MCHC 33.1 LAB RDW(LOINC) 11.5-14.5 % RDW 14.2 LAB PLT(LOINC) 130-400 10 3/mcL Platelet 279 LAB MPV(LOINC) 7.4-10.4 fL MPV 7.9 Performed By: #### CBC, GFR, ANEU, CMP, ADIFF #### [address] [place], [place] [address] .AUTO DIFF Collected: 03/09/2017 Status: F Source: [facility] 5:13 [facility] REPOSITORY TYPE CODE TESTS RESULT OUT OF REFERENCE UNITS RANGE LAB GLYNN(LOINC) 37.0-80.0 % Neutrophil % 59.1 LAB LYM(LOINC) 10.0-50.0 % Lymphocyte % 21.3 LAB MON(LOINC) 1.7-13.0 % Monocyte High % 19.2 LAB EO(LOINC) 0.0-7.0 % Eosinophil % 0.1 LAB BAS(LOINC) 0.0-2.5 % Basophil % 0.3 LAB ABLYM(LOIN 0.77-3.85 10 3/mcL C) Lymphocyte, 3.40 Absolute LAB JOVITA(LOINC 0.15-1.00 10 3/mcL ) High Monocyte, 3.10 Absolute LAB AEOS(LOINC 0.00-0.40 10 3/mcL ) Eosinophil, 0.00 Absolute LAB ABAS(LOINC 0.00-0.19 10 3/mcL ) Basophil, 0.10 Absolute Performed By: #### CBC, GFR, ANEU, CMP, ADIFF #### [address] [address] .NEUABS Collected: 03/09/2017 Status: F Source: [facility] 5:13 AM [facility] REPOSITORY TYPE CODE TESTS RESULT OUT OF REFERENCE UNITS RANGE LAB ANEU(LOINC) 2.85-6.16 10 3/mcL High Neutrophil, 9.50 Absolute Performed By: #### CBC, GFR, ANEU, CMP, ADIFF #### [address] [address] CMP Collected: 03/09/2017 Status: F Source: [facility] 5:13 AM [facility] REPOSITORY TYPE CODE TESTS RESULT OUT OF REFERENCE UNITS RANGE LAB 1547-9 70-105 mg/dL GLUCOSE High 109 LAB NA(LOINC) 136-146 mEq/L Low Sodium Level 135 LAB K(LOINC) 3.5-5.1 mEq/L Potassium Level 4.5 LAB CL(LOINC) 98-107 mEq/L Chloride 100 LAB CO2(LOINC) 22-29 mEq/L CO2 26 LAB EBAL(LOINC mEq/L ) Electrolyte Balance 9.0 LAB BUN(LOINC) 7.0-18.0 mg/dL BUN 8.4 LAB CRE(LOINC) 0.6-1.2 mg/dL Creatinine Lvl (s) 0.7 LAB BC(LOINC) 7-27 ratio BUN/Creatinine 12 Ratio LAB CA(LOINC) 8.4-10.2 mg/dL Low Calcium Lvl 8.2 LAB PROT(LOINC 6.0-8.3 G/dL ) Low Total Protein 5.9 LAB ALB(LOINC) 3.5-5.0 G/dL Albumin Level 3.5 LAB GLB(LOINC) G/dL Globulin 2.4 LAB AG(LOINC) 1.1-2.5 ratio A/G Ratio 1.5 LAB BILT(LOINC 0.2-1.0 mg/dL ) Bili Total 0.5 LAB AP(LOINC) 40-135 IU/L Alk Phos 52 LAB AST(LOINC) 10-40 IU/L AST/SGOT 22 LAB ALT(LOINC) 10-35 IU/L ALT/SGPT 16 Performed By: #### CBC, GFR, ANEU, CMP, ADIFF #### [address] [address] .GFR Collected: 03/09/2017 Status: F Source: [facility] 5:13 AM [facility] REPOSITORY TYPE CODE TESTS RESULT OUT OF REFERENCE UNITS RANGE LAB GFRAA(LOINC ml/min/1.73 ) sqm GFR 142 [place] Result Comment: GFR Population mean for , Non- Americans Ages 20-29 = 116 mL/min/1.73 sq.m. Ages 30-39 = 107 mL/min/1.73 sq.m. Ages 40-49 = 99 mL/min/1.73 sq.m. Ages 50-59 = 93 mL/min/1.73 sq.m. Ages 60-69 = 85 mL/min/1.73 sq.m. Ages 70+ = 75 mL/min/1.73 sq.m. Chronic Kidney Disease: Less than 60 mL/min/1.73 square meters End Stage Renal Disease: Less than 15 mL/min/1.73 square meters LAB GFRNO(LOINC) ml/min/1.73sqm GFR Non- >60 Result Comment: GFR Population mean for , Non- Americans Ages 20-29 = 116 mL/min/1.73 sq.m. Ages 30-39 = 107 mL/min/1.73 sq.m. Ages 40-49 = 99 mL/min/1.73 sq.m. Ages 50-59 = 93 mL/min/1.73 sq.m. Ages 60-69 = 85 mL/min/1.73 sq.m. Ages 70+ = 75 mL/min/1.73 sq.m. Chronic Kidney Disease: Less than 60 mL/min/1.73 square meters End Stage Renal Disease: Less than 15 mL/min/1.73 square meters Performed By: #### CBC, GFR, ANEU, CMP, ADIFF #### [address] [place], [place] [address] XR HIP MINIMUM 2 Observed: 03/08/2017 Status: F Source: [facility] VIEWS RIGHT 4:13 PM [facility] REPOSITORY ORIGINAL XR HIP MINIMUM 2 VIEWS RIGHT CLINICAL STATEMENT: Status Post Arthroplasty Postsurgical changes are seen with an intact prosthesis without a fracture or dislocation. IMPRESSION: No acute fracture or dislocation. Interpreted By: El Delarosa DO Preliminary Report By: El Delarosa DO Electronically Signed By: El Delarosa DO Dictated Date: 03/08/2017 4:24:43 PM Prelim Date: 03/08/2017 4:24:43 PM Sign Date: 03/08/2017 4:34:11 PM CBC Collected: 03/07/2017 Status: F Source: [facility] 9:34 AM [facility] REPOSITORY TYPE CODE TESTS RESULT OUT OF REFERENCE UNITS RANGE LAB WBC(LOINC) 4.60-10.80 10 3/mcL High WBC 13.40 LAB RBCCT(LOINC 4.04-6.13 10 6/mcL ) RBC 4.26 LAB HGB(LOINC) 14.0-18.0 G/dL Low Hgb 12.6 LAB HCT(LOINC) 42.0-52.0 % Low Hct 37.8 LAB MCV(LOINC) 80.0-94.0 fL MCV 88.7 LAB MCH(LOINC) 27.0-31.2 pg MCH 29.7 LAB MCHC(LOINC) 31.8-35.4 G/dL MCHC 33.5 LAB RDW(LOINC) 11.5-14.5 % RDW 14.4 LAB PLT(LOINC) 130-400 10 3/mcL Platelet 316 LAB MPV(LOINC) 7.4-10.4 fL MPV 7.6 Performed By: #### ANEU, GFR, CBC, ADIFF, BMP #### [address] [address] .AUTO DIFF Collected: 03/07/2017 Status: F Source: [facility] 9:34 AM [facility] REPOSITORY TYPE CODE TESTS RESULT OUT OF REFERENCE UNITS RANGE LAB GLYNN(LOINC) 37.0-80.0 % Neutrophil % 65.7 LAB LYM(LOINC) 10.0-50.0 % Lymphocyte % 18.5 LAB MON(LOINC) 1.7-13.0 % Monocyte High % 15.2 LAB EO(LOINC) 0.0-7.0 % Eosinophil % 0.3 LAB BAS(LOINC) 0.0-2.5 % Basophil % 0.3 LAB ABLYM(LOIN 0.77-3.85 10 3/mcL C) Lymphocyte, 2.50 Absolute LAB JOVITA(LOINC 0.15-1.00 10 3/mcL ) High Monocyte, 2.00 Absolute LAB AEOS(LOINC 0.00-0.40 10 3/mcL ) Eosinophil, 0.00 Absolute LAB ABAS(LOINC 0.00-0.19 10 3/mcL ) Basophil, 0.00 Absolute Performed By: #### ANEU, GFR, CBC, ADIFF, BMP #### [id number] .NEUABS Collected: 03/07/2017 Status: F Source: [facility] 9:34 AM [facility] REPOSITORY TYPE CODE TESTS RESULT OUT OF REFERENCE UNITS RANGE LAB ANEU(LOINC) 2.85-6.16 10 3/mcL High Neutrophil, 8.80 Absolute Performed By: #### ANEU, GFR, CBC, ADIFF, BMP #### [place] [id number] BMP Collected: 03/07/2017 Status: F Source: [facility] 9:34 AM [facility] REPOSITORY TYPE CODE TESTS RESULT OUT OF REFERENCE UNITS RANGE LAB 1547-9 70-105 mg/dL GLUCOSE High 127 LAB NA(LOINC) 136-146 mEq/L Low Sodium Level 134 LAB K(LOINC) 3.5-5.1 mEq/L Potassium Level 4.1 LAB CL(LOINC) 98-107 mEq/L Chloride 98 LAB CO2(LOINC) 22-29 mEq/L CO2 26 LAB EBAL(LOINC mEq/L ) Electrolyte Balance 10.0 LAB BUN(LOINC) 7.0-18.0 mg/dL BUN 10.7 LAB CRE(LOINC) 0.6-1.2 mg/dL Creatinine Lvl (s) 0.8 LAB BC(LOINC) 7-27 ratio BUN/Creatinine 13 Ratio LAB CA(LOINC) 8.4-10.2 mg/dL Calcium Lvl 8.9 Performed By: #### ANEU, GFR, CBC, ADIFF, BMP #### [place] [address] [id number] .GFR Collected: 03/07/2017 Status: F Source: [facility] 9:34 AM [facility] REPOSITORY TYPE CODE TESTS RESULT OUT OF REFERENCE UNITS RANGE LAB GFRAA(LOINC ml/min/1.73 ) sqm GFR 129 [place] Result Comment: GFR Population mean for , Non- Americans Ages 20-29 = 116 mL/min/1.73 sq.m. Ages 30-39 = 107 mL/min/1.73 sq.m. Ages 40-49 = 99 mL/min/1.73 sq.m. Ages 50-59 = 93 mL/min/1.73 sq.m. Ages 60-69 = 85 mL/min/1.73 sq.m. Ages 70+ = 75 mL/min/1.73 sq.m. Chronic Kidney Disease: Less than 60 mL/min/1.73 square meters End Stage Renal Disease: Less than 15 mL/min/1.73 square meters LAB GFRNO(LOINC) ml/min/1.73sqm GFR Non- >60 Result Comment: GFR Population mean for , Non- Americans Ages 20-29 = 116 mL/min/1.73 sq.m. Ages 30-39 = 107 mL/min/1.73 sq.m. Ages 40-49 = 99 mL/min/1.73 sq.m. Ages 50-59 = 93 mL/min/1.73 sq.m. Ages 60-69 = 85 mL/min/1.73 sq.m. Ages 70+ = 75 mL/min/1.73 sq.m. Chronic Kidney Disease: Less than 60 mL/min/1.73 square meters End Stage Renal Disease: Less than 15 mL/min/1.73 square meters Performed By: #### ANEU, GFR, CBC, ADIFF, BMP #### [place] [id number] [place], [place] [address] VID[facility] Collected: 03/07/2017 Status: F Source: [facility] 9:34 AM [facility] REPOSITORY TYPE CODE TESTS RESULT OUT OF RANGE REFERENCE UNITS LAB VIDH(LOINC) ng/mL Vit. D 11 25-Hydroxy Result Comment: Interpretive Values Based on Total 25(OH)D: Severe Deficiency <20 ng/mL Mild to Moderate Deficiency 20-30 ng/mL Optimum Levels 30-100 ng/mL Toxicity Possible >100 ng/mL Performed By: #### 125VTD #### [address] [address] #### VIDH, PTH #### [place] [id number] PTH Collected: 03/07/2017 Status: F Source: [facility] 9:34 AM [facility] REPOSITORY TYPE CODE TESTS RESULT OUT OF REFERENCE UNITS RANGE LAB PTH(LOINC) 10-69 pg/mL PTH, Intact 42 Performed By: #### 125VTD #### [place] [address] #### VIDH, PTH #### [place] [id number] VIDDH Collected: 03/07/2017 Status: F Source: [facility] 9:34 AM [facility] REPOSITORY TYPE CODE TESTS RESULT OUT OF RANGE REFERENCE UNITS LAB VIDDH(LOINC 15.0-60.0 pg/mL ) Vit. D 22.3 1,25 Dihydro. Result Comment: This test was developed and its performance characteristics determined by [facility]'s Noemy [facility] ([facility]). It has not been cleared or approved by the FDA. -[facility] is regulated under CLIA as qualified to perform high-complexity testing. This test is used for clinical purposes. It should not be regarded as investigational or for research. Performed By: [facility] [address] [place] [address] Marketing Production Coordinator: Shanita Colón M.D. CLIA#: [id number] Phone#: LAB 125D2(LOINC) pg/mL Vitamin D2 1,25 <4.0 Result Comment: Performed By: [facility] [employer] [facility] [address] [place] [address] Marketing Production Coordinator: Shanita Colón M.D. CLIA#: [id number] Phone#: LAB 125D3(LOINC) pg/mL Vitamin D3 1,25 22.3 Result Comment: Performed By: [facility] [address] [place] [address] Marketing Production Coordinator: Shanita Colón M.D. CLIA#: [id number] Phone#: Performed By: #### 125VTD #### [facility] [address] [place] [address] #### VIDH, PTH #### [address] [address] XR HIP RIGHT W/PELVIS Observed: 03/06/2017 Status: F Source: [facility] 4 VIEWS 7:39 PM [facility] REPOSITORY ORIGINAL XR HIP RIGHT W/PELVIS 4 VIEWS CLINICAL STATEMENT: pain, fall injury COMPARISON: None FINDINGS: The pelvic ring is intact. However, there is a subcapital to transcervical fracture of the proximal right femur with a varus fracture deformity. No dislocation. IMPRESSION: Right hip femoral neck fracture. No dislocation. Interpreted By: El Delarosa DO Preliminary Report By: El Delarosa DO Electronically Signed By: El Delarosa DO Dictated Date: 03/06/2017 7:55:58 PM Prelim Date: 03/06/2017 7:55:58 PM Sign Date: 03/06/2017 7:57:52 PM Observed: 02/25/2017 Status: F Source: [place] RESPIRATORY PANEL 3:47 PM [facility] MOLECULAR REPOSITORY Has pt arrived? Y RP PANEL Normal Reference Range = Not Detected Copy of report sent to Infection Control Printer MS#[id number] 02/27/17 1520 DCANNON. RESULTS CALLED TO NURSE LINE 02/27/17 5787 Felicia Calvert. ADENOVIRUS Not Detected HUMAN METAPHNEUMO Positive for HUMAN METAPHNEUMO VIRUS by NAAT technology INFLUENZA A Not Detected INFLUENZA A (SUBTYPE H1) Not Detected INFLUENZA A (SUBTYPE H3) Not Detected INFLUENZA B Not Detected PARAINFLUENZA 1 Not Detected PARAINFLUENZA 2 Not Detected PARAINFLUENZA 3 Not Detected PARAINFLUENZA 4 Not Detected RHINOVIRUS Not Detected RSV A Not Detected RSV B Not Detected NAAT METHOD Testing was performed using nucleic acid amplification ORGANISM 1: HUMAN META Performed By: #### M100.638 #### [facility] [address] [place], [address] CHEST PA AND LATERAL Observed: 02/25/2017 Status: F Source: [place] 3:40 PM [facility] REPOSITORY [facility] Imaging Services [address] [place] [address] Chest PA and Lateral MR#: [id number] Acct: [id number] Name: MIKE BLANTON Rep #: [id number] : 1960 M 56 From: Bernard Pettit MD PCP: Antonio LEAVITT,Jose Leonardo Status: REG CLI Study: Chest PA and Lateral Date of Exam: 02/25/17 Exam# [id number] Ordering Dr: Jose Alvarez MD STUDY: X-RAY CHEST REASON FOR EXAM: Male, 56 years old. Cough. TECHNIQUE: PA and lateral views of the chest. COMPARISON: None. FINDINGS: Hyperinflation. Mild increased linear markings at the left lung base. This may represent either scarring and/or atelectasis. Mild increased markings with focal calcifications also seen in the left upper lobe and in the right midlung suggestive of scarring. There is no demonstrated pleural abnormality. Normal size heart. Normal mediastinum and soy. Normal visualized pulmonary arteries. Normal visualized aortic arch and descending thoracic aorta. There is demineralization of the osseous structures. Loss of height of a mid dorsal vertebrae. There is degenerative osteoarthritis of the bilateral shoulders. There is no demonstrated abnormality of the visualized soft tissue structures of the upper abdomen. RAD/Chest PA and Lateral IMPRESSION: Hyperinflation. Findings suggestive of a scarring at the left lung base as well as in the left upper lobe and right midlung. Electronically Signed: Bernard Pettit MD at 15:59 EST Tel [phone], Service support , CC: Jose Alvarez MD Marinator: Signed ALLERGIES ALLERGIES DATE TYPE / CODE NAME / CODE REACTION SEVERITY SOURCE 01/11/2018 Drug No Known Unknown [facility] Allergy/4160 Allergies/F00 Hospital [address](SNOMED 5750551(RXNOR Repository CT) M) ENCOUNTERS ENCOUNTERS ADMIT/DISCHARGE ACCOUNT NUMBER ADMITTING ENCOUNTER LOCATION SOURCE CLASS 01/27/2018 [id number] Ambulatory [facility] ding:LAB Repository 01/21/2018 [id number] Ambulatory [facility] ding:CVS Repository 01/14/2018 [id number] Ambulatory BMSBuilding: [place] BMS.CF.[facility] Repository 01/14/2018 [id number] Ambulatory [facility] ding:CVS Repository 01/12/2018 [id number] Ambulatory [facility] ding:OLS.L Repository TCC 01/11/2018 [id number] Ambulatory BMSBuilding: [place] BMS.CF.formerly [facility] Repository 01/11/2018 [id number] Ambulatory [facility] ding:OMD Repository 01/11/2018 [id number] Ambulatory [facility] ding:EN Repository 01/05/2018 [id number] Ambulatory [facility] ding:OLS.L Repository TCC 01/04/2018/01/05/20 [id number] Ambulatory BMSBuilding: [place] 18 BMS.[facility] Repository 01/03/2018 [id number] Ambulatory [facility] ding:OLS.L Repository TCC 12/15/2017 [id number] Amparo Ambulatory BMSBuilding: [place] BMS.Formerly [facility] Repository 12/15/2017 [id number] Christensen, Ambulatory BMSBuilding: [place] BMS.[facility]ly [facility] Repository 12/15/2017 [id number] Christensen, Ambulatory BMSBuilding: [place] BMS.Formerly [facility] Repository 12/15/2017 [id number] Christensen, Ambulatory BMSBuilding: [place] BMS.[facility] Repository 12/15/2017 [id number] Amparo, Ambulatory BMSBuilding: [place] BMS.Formerly [facility] Repository 12/15/2017/01/01/20 [id number] Christensen, Inpatient [place] 18 [place] Encounter [facility] ding:RURoom: Repository LI497Pjg: 1 12/12/2017 [id number] Agyepong, Ambulatory BMSBuilding: [place] Jerad BMS.Formerly [facility] Repository 12/12/2017 [id number] Agyepong, Ambulatory BMSBuilding: [place]ad BMS.[facility]ly [facility] Repository 12/12/2017/12/16/19 [id number] Ambulatory BMSBuilding: [place] 18 [facility] Repository 12/12/2017/12/16/19 [id number] Ambulatory BMSBuilding: [place] 18 [facility] Repository 12/12/2017 [id number] Agyepong, Ambulatory BMSBuilding: [place] Jerad BMS.[facility]ly [facility] Repository 12/12/2017 [id number] Agyepong, Ambulatory BMSBuilding: [place] Jerad BMS.[facility]ly [facility] Repository 12/12/2017/12/16/19 [id number] Agyepong, Inpatient [place]ella 18 Jerad [facility] ding:XV7Hqsb Repository : DI509Jri: 1 12/10/2017 [id number] Ambulatory [facility] ding:POLAB3 Repository 12/03/2017/12/04/19 [id number] Ambulatory BMSBuilding: [place] 18 BMS.[facility]ly [facility] Repository 12/03/2017 [id number] Ambulatory [facility] ding:POLAB3 Repository 12/02/2017/12/03/19 [id number] Ambulatory [address] ding:MEDOUTP Repository 12/01/2017 [id number] [facility] ding:POLAB3 Repository 12/01/2017 [id number] [facility] ding:CT Repository 10/01/2017 [id number] [facility] ding:POLAB3 Repository 03/17/2017/03/17/19 [id number] Emergency BBuilding:PERLA [facility] Repository 03/06/2017/03/10/19 [id number] MARTHA LEAVITT., Inpatient BBuilding:MS Kelly Freeman MD. NOEMY W Encounter URRoom: [place] [id number]: [facility] Repository 02/25/2017 [id number] [facility] ding:RAD Repository PAYERS PAYERS ENCOUNTER GUARANTOR PAYER SUBSCRIBER SOURCE 01/27/2018 MIKE Escobedo [id number] Primary MIKE C [place] [facility] Insurance:MEDICARE SNIPESDOB: [address] PART A [facility] [id number] Hospital [address]Jru: (330) Number: Repository [phone] () [id number] Date:2018-01-27 01/27/2018 Secondary MIKE C [place] Insurance:MEDICAIDPo SNIPESDOB: Counts Include [address] [facility] licy Number: [id number] [place] [address] [id number] Repository e Date:2018-01-27 01/27/2018 Tertiary NOT GIVENUNK [place] Insurance:SELF PAY [facility] Number: Effective Repository Date:2018-01-27 01/21/2018 MIKE C [place]ARE SNIPESDOB: [place] [id number] PART A [facility] [id number] Number: Repository [place], [place] [id number] [address]Een: (330) Date:2018-01-04 [phone] () 01/21/2018 Secondary MIKE C [place] Insurance:MEDICAIDPo SNIPESDOB: Counts Include [address] [facility] licy Number: [id number] [place] [address] [id number] Repository e Date:2018-01-04 01/21/2018 Tertiary NOT GIVENUNK [place] Insurance:SELF PAY [facility] Number: Effective Repository Date:2018-01-04 01/14/2018 MIKE BLANTON2227 Primary MIKE [place] Insurance:MEDICARE SNIPESDOB: [address] PART A [facility] [id number] Hospital [address]Nxa: (330) Number: Repository [phone] () [id number] Date:2018-01-04 01/14/2018 Secondary MIKE C [place] Insurance:MEDICAIDPo SNIPESDOB: Counts Include [address] [facility] licy Number: [id number] Hospital [id number] Repository e Date:2018-01-04 01/14/2018 Tertiary NOT GIVENUNK [place] Insurance:SELF PAY [facility] Number: Effective Repository Date:2018-01-14 01/14/2018 MIKE BLANTON2227 Primary MIKE [place] Insurance:MEDICARE SNIPESDOB: [address] PART A [facility] [id number] [address]Hml: (330) Number: Repository [phone] () [id number] Date:2018-01-04 01/14/2018 Secondary MIKE C [place] Insurance:MEDICAIDPo SNIPESDOB: Counts Include [address] [facility] licy Number: [id number] [place] [address] [id number] Repository e Date:2018-01-04 01/14/2018 Tertiary NOT GIVENUNK [place] Insurance:SELF PAY [facility] Number: Effective Repository Date:2018-01-04 01/12/2018 MIKE [id number] Primary NOT GIVENUNK [place] Insurance:SELF PAY [address] [address]Bvq: (330) Number: Effective Repository [phone] () Date:2018-01-12 01/11/2018 MIKE DAMON7 Primary MIKE Escobedo [place] Insurance:MEDICARE SNIPESDOB: [address] PART A [facility] [id number] [place] [address]Asp: (330) Number: Repository [phone] () [id number] Date:2017-12-30 01/11/2018 Secondary MIKE C [place] Insurance:MEDICAIDPo SNIPESDOB: Community licy Number: [id number] Hospital [id number] Repository e Date:2017-12-30 01/11/2018 Tertiary NOT GIVENUNK [place] Insurance:SELF PAY [facility] Number: Effective Repository Date:2018-01-11 01/11/2018 MIKE C [id number] Primary MIKE C [place] Insurance:MEDICARE SNIPESDOB: [address] PART A [facility] [id number] [id number]: (330) Number: Repository [phone] () [id number] Date:2017-12-30 01/11/2018 Secondary MIKE C [place] Insurance:MEDICAIDPo SNIPESDOB: Community licy Number: [id number] Hospital [id number] Repository e Date:2017-12-30 01/11/2018 Tertiary NOT GIVENUNK [place] Insurance:SELF PAY [facility] Number: Effective Repository Date:2017-12-30 01/11/2018 MIKE BLANTON2227 Primary MIKE C [place] Insurance:MEDICARE SNIPESDOB: [address] PART A [facility] [id number] [place]ille [id number]: (330) Number: Repository [phone] () [id number] Date:2017-12-03 01/11/2018 Secondary MIKE C [place] Insurance:MEDICAIDPo SNIPESDOB: Community licy Number: [id number] Hospital [id number] Repository e Date:2017-12-03 01/11/2018 Tertiary NOT GIVENUNK [place] Insurance:SELF PAY [facility] Number: Effective Repository Date:2017-12-03 01/05/2018 MIKE C [id number] Primary NOT GIVENUNK [place] Insurance:SELF PAY [place] [id number]: (330) Number: Effective Repository [phone] () Date:2018-01-05 01/04/2018 MIKE C [id number] Primary MIKE C [place] Insurance:MEDICARE SNIPESDOB: [address] PART A [facility] [id number] Hospital [address]Lmq: (330) Number: Repository [phone] () [id number] Date:2017-12-31 01/04/2018 Secondary MIKE C [place] Insurance:MEDICAIDPo SNIPESDOB: Counts Include [address] [facility] lic Number: [id number] Hospital [id number] Repository e Date:2017-12-31 01/04/2018 Tertiary NOT GIVENUNK [place] Insurance:SELF PAY [facility] Number: Effective Repository Date:2018-01-04 01/03/2018 MIKE C [id number] Primary NOT GIVENUNK [place] Insurance:SELF PAY [address] [address]Kwt: (330) Number: Effective Repository [phone] () Date:2018-01-03 12/15/2017 MIKE C [id number] Primary MIKE C [place] Insurance:MEDICARE SNIPESDOB: [address] PART A [facility] [id number] Hospital [address]Sno: (330) Number: Repository [phone] () [id number] Date:2017-12-15 12/15/2017 Secondary MIKE C [place] Insurance:MEDICAIDPo SNIPESDOB: Counts Include [address] [facility] lic Number: [id number] Hospital [id number] Repository e Date:2017-12-15 12/15/2017 Tertiary NOT GIVENUNK [place] Insurance:SELF PAY [facility] Number: Effective Repository Date:2017-12-15 12/15/2017 MIKE C [id number] Primary MIKE C [place] Insurance:MEDICARE SNIPESDOB: [address] PART A [facility] [id number] Hospital [address]Les: (330) Number: Repository [phone] () [id number] Date:2017-12-15 12/15/2017 Secondary MIKE C [place] Insurance:MEDICAIDPo SNIPESDOB: Community licy Number: [id number] Hospital [id number] Repository e Date:2017-12-15 12/15/2017 Tertiary NOT GIVENUNK [place] Insurance:SELF PAY Counts Include [address] [facility] Number: Effective Repository Date:2017-12-15 12/15/2017 MIKE BLANTON2227 Primary MIKE C [place] Insurance:MEDICARE SNIPESDOB: [address] PART A [facility] [id number] Hospital [address]Msr: (330) Number: Repository [phone] () [id number] Date:2017-12-15 12/15/2017 Secondary MIKE C [place] Insurance:MEDICAIDPo SNIPESDOB: Counts Include [address] [facility] licy Number: [id number] [place] [address] [id number] Repository e Date:2017-12-15 12/15/2017 Tertiary NOT GIVENUNK [place] Insurance:SELF PAY [facility] Number: Effective Repository Date:2017-12-15 12/15/2017 MIKE BLANTON2227 Primary MIKE C [place] Insurance:MEDICARE SNIPESDOB: [address] PART A [facility] [id number] Hospital [address]Mox: (330) Number: Repository [phone] () [id number] Date:2017-12-15 12/15/2017 Secondary MIKE C [place] Insurance:MEDICAIDPo SNIPESDOB: Counts Include [address] [facility] licy Number: [id number] Hospital [id number] Repository e Date:2017-12-15 12/15/2017 Tertiary NOT GIVENUNK [place] Insurance:SELF PAY Counts Include [address] [facility] Effective Repository Date:2017-12-15 12/15/2017 MIKE C [id number] Primary MIKE C [place] Insurance:MEDICARE SNIPESDOB: [address] PART A [facility] [id number] [address]Lhn: (330) Number: Repository [phone] () [id number] Date:2017-12-15 12/15/2017 Secondary MIKE C [place] Insurance:MEDICAIDPo SNIPESDOB: Community licy Number: [id number] Hospital [id number] Repository e Date:2017-12-15 12/15/2017 Tertiary NOT GIVENUNK [place] Insurance:SELF PAY Counts Include [address] [facility] Number: Effective Repository Date:2017-12-15 12/15/2017 MIKE BLANTON2227 Primary MIKE C [place] Insurance:MEDICARE SNIPESDOB: [address] PART A [facility] [id number] [place] [id number]: (330) Number: Repository [phone] () [id number] Date:2017-12-15 12/15/2017 Secondary MIKE C [place] Insurance:MEDICAIDPo SNIPESDOB: Counts Include [address] [facility] licy Number: [id number] Hospital [id number] Repository e Date:2017-12-15 12/15/2017 Tertiary NOT GIVENUNK [place] Insurance:SELF PAY Counts Include [address] [facility] Number: Effective Repository Date:2017-12-15 12/12/2017 MIKE BLANTON2227 Primary MIKE C [place] Insurance:MEDICARE SNIPESDOB: [address] PART A [facility] [id number] [place] [id number]: (330) Number: Repository [phone] () [id number] Date:2017-12-12 12/12/2017 Secondary MIKE C [place] Insurance:MEDICAIDPo SNIPESDOB: Counts Include [address] [facility] licy Number: [id number] Hospital [id number] Repository e Date:2017-12-12 12/12/2017 Tertiary NOT GIVENUNK [place] Insurance:SELF PAY Counts Include [address] [facility] Number: Effective Repository Date:2017-12-12 12/12/2017 MIKE C [id number] Primary MIKE C [place] Insurance:MEDICARE SNIPESDOB: [address] PART A [facility] [id number] Hospital [address]Qbi: (330) Number: Repository [phone] () [id number] Date:2017-12-12 12/12/2017 Secondary MIKE C [place] Insurance:MEDICAIDPo SNIPESDOB: Community licy Number: [id number] Hospital [id number] Repository e Date:2017-12-12 12/12/2017 Tertiary NOT GIVENUNK [place] Insurance:SELF PAY Counts Include [address] [facility] Number: Effective Repository Date:2017-12-12 12/12/2017 MIKE BLANTON2227 Primary MIKE C [place] Insurance:MEDICARE SNIPESDOB: [address] PART A [facility] [id number] Hospital [address]Pbt: (330) Number: Repository [phone] () [id number] Date:2017-12-12 12/12/2017 Secondary MIKE C [place] Insurance:MEDICAIDPo SNIPESDOB: Community licy Number: [id number] [place] [address] [id number] Repository e Date:2017-12-12 12/12/2017 Tertiary NOT GIVENUNK [place] Insurance:SELF PAY [facility] Number: Effective Repository Date:2017-12-12 12/12/2017 MIKE ANAYAIPES2227 Primary MIKE C [place] Insurance:MEDICARE SNIPESDOB: [address] PART A [facility] [id number] Hospital [address]Cuf: (330) Number: Repository [phone] () [id number] Date:2017-12-12 12/12/2017 Secondary MIKE C [place] Insurance:MEDICAIDPo SNIPESDOB: Community licy Number: [id number] [place] [address] [id number] Repository e Date:2017-12-12 12/12/2017 Tertiary NOT GIVENUNK [place] Insurance:SELF PAY [facility] Hospital Number: Effective Repository Date:2017-12-12 12/12/2017 MIKE C [id number] Primary MIKE C [place] Insurance:MEDICARE SNIPESDOB: [address] PART A [facility] [id number] Hospital [address]Oda: (330) Number: Repository [phone] () [id number] Date:2017-12-12 12/12/2017 Secondary MIKE C [place] Insurance:MEDICAIDPo SNIPESDOB: Community licy Number: [id number] Hospital [id number] Repository e Date:2017-12-12 12/12/2017 Tertiary NOT GIVENUNK [place] Insurance:SELF PAY Counts Include [address] [facility] Number: Effective Repository Date:2017-12-12 12/12/2017 MIKE C [id number] Primary MIKE C [place] Insurance:MEDICARE SNIPESDOB: [address] PART A [facility] [id number] Hospital [address]Umk: (330) Number: Repository [phone] () [id number] Date:2017-12-12 12/12/2017 Secondary MIKE C [place] Insurance:MEDICAIDPo SNIPESDOB: Counts Include [address] [facility] licy Number: [id number] Hospital [id number] Repository e Date:2017-12-12 12/12/2017 Tertiary NOT GIVENUNK [place] Insurance:SELF PAY Counts Include [address] [facility] Number: Effective Repository Date:2017-12-12 12/12/2017 MIKE C [id number] Primary MIKE C [place] Insurance:MEDICARE SNIPESDOB: [address] PART A [facility] [id number] Hospital [address]Aec: (330) Number: Repository [phone] () [id number] Date:2017-12-12 12/12/2017 Secondary MIKE C [place] Insurance:MEDICAIDPo SNIPESDOB: Counts Include [address] [facility] licy Number: [id number] Hospital [id number] Repository e Date:2017-12-12 12/12/2017 Tertiary NOT GIVENUNK [place] Insurance:SELF PAY [facility] Hospital Number: Effective Repository Date:2017-12-12 12/10/2017 MIKE C [id number] Primary MIKE C [place] Insurance:MEDICARE SNIPESDOB: [address] PART A [facility] [id number] Hospital [address]Xtv: (330) Number: Repository [phone] () [id number] Date:2017-12-10 12/10/2017 Secondary MIKE C [place] Insurance:MEDICAIDPo SNIPESDOB: Community licy Number: [id number] Hospital [id number] Repository e Date:2017-12-10 12/10/2017 Tertiary NOT GIVENUNK [place] Insurance:SELF PAY Counts Include [address] [facility] [facility] Hospital Number: Effective Repository Date:2017-12-10 12/03/2017 MIKE ANAYAIPES2227 Primary MIKE C Della BLAVALERY RDLOT Insurance:MEDICARE SNIPESDOB: [address] PART A [facility] [id number] Hospital [address]Yrm: (330) Number: Repository [phone] () [id number] Date:2017-12-02 12/03/2017 Secondary MIKE C [place] Insurance:MEDICAIDPo SNIPESDOB: Community licy Number: [id number] Hospital [id number] Repository e Date:2017-12-02 12/03/2017 Tertiary NOT GIVENUNK [place] Insurance:SELF PAY Counts Include 234 [facility]: Effective Repository Date:2017-12-02 12/03/2017 MIKE ANAYAIPES2227 Primary MIKE SABILLON RDL[place] Insurance:MEDICARE SNIPESDOB: [address] PART A [facility] [id number] Hospital [address]Fqy: (330) Number: Repository [phone] () [id number] Date:2017-12-03 12/03/2017 Secondary MIKE C [place] Insurance:MEDICAIDPo SNIPESDOB: Community licy Number: [id number] Hospital [id number] Repository e Date:2017-12-03 12/03/2017 Tertiary NOT GIVENUNK [place] Insurance:SELF PAY Counts Include 234 [facility] Number: Effective Repository Date:2017-12-03 12/02/2017 MIKE C [id number] Primary MIKE SABILLON RDL[place] Insurance:MEDICARE SNIPESDOB: [address] PART A [facility] [id number] Hospital [address]Cib: (330) Number: Repository [phone] () [id number] Date:2017-12-02 12/02/2017 Secondary MIKE Escobedo [place] Insurance:MEDICAIDPo SNIPESDOB: Community licy Number: [id number] Hospital [id number] Repository e Date:2017-12-02 12/02/2017 Tertiary NOT GIVENUNK [place] Insurance:SELF PAY Counts Include [facility]eds [facility] Hospital Number: Effective Repository Date:2017-12-02 12/01/2017 MIKE [id number] Primary MIKE SABILLON [place] Insurance:MEDICARE SNIPESDOB: [address] PART A [facility] [id number] Hospital [address]Pxp: (330) Number: Repository [phone] () [id number] Date:2017-12-01 12/01/2017 Secondary MIKE Escobedo Della Insurance:MEDICAIDPo SNIPESDOB: Counts Include 234 Beds At [facility] licy Number: [id number] Hospital [id number] Repository e Date:2017-12-01 12/01/2017 Tertiary NOT GIVENUNK [place] Insurance:SELF PAY Counts Include 234 Beds [facility] Hospital Number: Effective Repository Date:2017-12-01 12/01/2017 MIKE ANAYAIPES2227 Primary MIKE SABILLON [place] Insurance:MEDICARE SNIPESDOB: [address] PART A [facility] [id number] Hospital 633[address]Vfw: (330) Number: Repository [phone] () [id number] Date:2017-12-01 12/01/2017 Secondary MIKE C [place] Insurance:MEDICAIDPo SNIPESDOB: Community licy Number: [id number] Hospital [id number] Repository e Date:2017-12-01 12/01/2017 Tertiary NOT GIVENUNK [place] Insurance:SELF PAY Counts Include 234 [facility]eds [facility] Hospital Number: Effective Repository Date:2017-12-01 10/01/2017 [facility]anton716 [facility] [place] [place] Insurance:MEDICARE SnipesDOB: Community [id number]: (850) PART A BPolicy [id number] Hospital [phone] () Number: Repository [id number] Date:2017-10-01 10/01/2017 Secondary Mike Della Insurance:MEDICAIDPo SnipesDOB: Community licy Number: [id number] Hospital [id number] Repository e Date:2017-10-01 10/01/2017 Tertiary NOT GIVENUNK [place] Insurance:SELF PAY Counts Include [facility]: Effective Rep[facility] Date:2017-10-01 03/17/2017 MIKE SNIPESDOB: Primary [facility] Insurance:MEDICARE SNIPESDOB: [facility] [place] LOT PART BPolicy Number: [id number] Repository [address] [place] [address] [id number] [address]ARTIN [address]Hkg: (850) Date:2017-03-17 E [address] [id number] () [id number] [address] [place] [address] Name:[facility] [address]Llw: (850) [facility] [phone] [address] [address]Aumufvfgf, ()Tel: (000) [place] [phone]: (WP) [phone] 03/17/2017 Secondary [facility] Insurance:MEDICAID SNIPESDOB: [facility] [id number] Repository Number: [address] [id number] E LOT e Date:2017-03-[address] [place] [address] [id number]: (850) Name:[id number], ()Tel: (000) [place] [phone]: 000-0000 (WP) 03/06/2017 MIKE SNIPESDOB: Primary [facility] Insurance:MEDICARE SNIPESDOB: [facility] MARIO E LOT PART APolicy Number: [id number] Repository [address] [place] [address] [id number] [address] [address]Saz: (850) Date:2017-03-06 LOT [id number] () [id number] [address] [place] [address] Name:Jacquelinil Code PRASHANTH [id number]: [phone], [place] (HP)Tel: (000) [phone]: (WP) [phone] 03/06/2017 Secondary [facility] Health Insurance:MEDICARE SNIPESDOB: Foundation PART BPolicy Number: [id number] Repository [id number] [address] Date:2017-02-22 LOT [id number] [address] [place] [address] Name:[facility] [id number]: (850) [employer] [phone] [address] [address]Hkwafgvym, (HP)Tel: (000) [place] [phone]: (WP) [phone] 03/06/2017 Tertiary [facility] Health Insurance:MEDICAID SNIPESDOB: [facility] [id number] Repository Number: [address] [id number] E [address] e Date:2017-03-[address] [place] [address] [id number]: (850) Name:[phone], (HP)Tel: (000) [place] [phone]: 000-0000 (WP) 02/25/2017 Mike [id number] Primary Mike Della [place] Insurance:MEDICARE SnipesDOB: Community [address]Dvh: (850) PART A BPolicy [id number] Hospital [phone] () Number: Repository [id number] Date:2017-02-25 02/25/2017 Secondary Mike Della Insurance:MEDICAIDPo SnipesDOB: Community licy Number: [id number] Hospital [id number] Repository e Date:2017-02-25 02/25/2017 Tertiary NOT GIVENUNK [place] Insurance:SELF PAY [facility] Number: Effective Repository Date:2017-02-25
== END ==
PROVIDERS: Family Provider Family Medicine Geriatric Medicine; PCP Family Medicine Geriatric Medicine; Referring Provider Internal Medicine Cardiovascular Disease; Visit Provider Internal Medicine Cardiovascular Disease
DX: I49.9 Cardiac arrhythmia, unspecified (principal); R00.0 Tachycardia, unspecified
CPT/HCPCS: 93017; 93350; J7040; Q9957; A4216; C8928

== ENCOUNTER → 2018-01-27 12:46 | Outpatient (CLI) | payer MEDICARE, MEDICAID, SELFPAY ==
[2018-01-11 14:15] VITALS: BMI 20.7
[2018-01-27 13:52] LABS: Absolute Lymphocyte Count 2.06 X10^3/ul (0.83-4.51); Absolute Neutrophil Count 4.3 X10^3/uL (2.0-7.7); Basophil# 0.05 X10^3/uL; Basophil% 0.6 % (0-1); Eosinophils% 1.3 % (0-5); Hematocrit 40.9 % (40-54); Hemoglobin 13.2 g/dl (13.0-16.5); Lymphocyte # 2.06 X10^3/ul (4.0); Lymphocyte % 26.6 % (19-41); Mean Corp Hgb Conc 32.3 g/gl (32-36); Mean Corpuscular Hgb 29.3 pg (27.0-32.0); Mean Corpuscular Volume 90.9 fL (80-94); Mean Platelet Vol. 9.2 fl (6.2-12.0); Monocyte# 1.22 X10^3/uL; Monocyte% 15.7 % (0-10); Neutrophil # 4.31 X10^3/uL (2.7-7.7); Neutrophil % 55.7 % (47-70); POSITIVE COUNT NO; POSITIVE DIFFERENTIAL NO; POSITIVE MORPHOLOGY NO; Platelet Count 229 K/mm3 (150-450); RBC Distribution Width CV 13.5 % (11.6-14.6); RBC Distribution Width SD 45.1 fl (35.1-43.9); White Blood Count 7.8 K/mm3 (4.4-11.0)
[2018-01-27 14:18] LABS: Vitamin D,25 Hydroxy 64.1 ng/mL (29.95-100.01)
[2018-01-27 14:21] LABS: ALB/GLOB Ratio 0.8 RATIO (0.9-2.4); AST(SGOT) 22 U/L (15-37); Alanine Aminotransfer ALT/SGPT 17 U/L (16-61); Albumin, Serum 3.5 g/dL (3.2-5.0); Alkaline Phosphatase 111 U/L (45-117); Anion Gap 7 (5-15); BUN 9 mg/dL (7-18); BUN/Creat Ratio 13.3 RATIO (10-20); Bilirubin, Direct 0.18 mg/dL (0.00-0.30); Calcium,Total 8.9 mg/dL (8.5-10.1); Chloride 102 mmol/L (98-107); Cholesterol 147 mg/dL (200); Creatinine, Serum 0.68 mg/dL (0.70-1.30); EST Glomerular Filtration Rate 128 mL/min (>60); Est Glom Filt Rate - Afr Amer 155 mL/min (>60); Globulin 4.5 g/dL (2.2-4.2); Glucose 86 mg/dL (74-106); High Density Lipoprotein 52 mg/dL; Potassium 3.8 mmol/L (3.5-5.1); Sodium Level 137 mmol/L (136-145); Thyroid Stim Hormone (TSH) 1.63 uIU/mL (0.358-3.74); Triglycerides 58 mg/dL; Very Low Density Lipoprotein 12 mg/dL (5-40)
== END ==
PROVIDERS: Internal Medicine Cardiovascular Disease; Family Provider Family Medicine Geriatric Medicine; PCP Family Medicine Geriatric Medicine; Referring Provider Family Medicine Geriatric Medicine; Visit Provider Family Medicine Geriatric Medicine
DX: E55.9 Vitamin D deficiency, unspecified (principal); R53.83 Other fatigue; E03.9 Hypothyroidism, unspecified
CPT/HCPCS: 36415; 80053; 80061; 82248; 82306; 84443; 85025

== ENCOUNTER → 2018-03-02 11:08 | Outpatient (CLI) | payer MEDICARE, MEDICAID, SELFPAY ==
[2018-01-11 14:15] VITALS: BMI 20.7
[2018-03-02 13:14] LABS: Absolute Lymphocyte Count 2.76 X10^3/ul (0.83-4.51); Absolute Neutrophil Count 7.8 X10^3/uL (2.0-7.7); Basophil# 0.06 X10^3/uL; Basophil% 0.5 % (0-1); Eosinophil# 0.35 X10^3/uL; Eosinophils% 2.9 % (0-5); Hematocrit 42.5 % (40-54); Hemoglobin 13.2 g/dl (13.0-16.5); Lymphocyte # 2.76 X10^3/ul (4.0); Lymphocyte % 22.5 % (19-41); Mean Corp Hgb Conc 31.1 g/gl (32-36); Mean Corpuscular Hgb 29.1 pg (27.0-32.0); Mean Corpuscular Volume 93.6 fL (80-94); Mean Platelet Vol. 10.2 fl (6.2-12.0); Monocyte% 10.6 % (0-10); Neutrophil # 7.76 X10^3/uL (2.7-7.7); Neutrophil % 63.3 % (47-70); Platelet Count 196 K/mm3 (150-450); RBC Distribution Width SD 48.1 fl (35.1-43.9); Red Blood Count 4.54 M/mm3 (4.6-6.2); White Blood Count 12.3 K/mm3 (4.4-11.0)
[2018-03-02 13:20] LABS: POSITIVE COUNT NO; POSITIVE DIFFERENTIAL NO; POSITIVE MORPHOLOGY NO
[2018-03-02 13:37] LABS: Valproic Acid (Depakene) Level 124 ug/mL (50-100)
[2018-03-02 13:40] LABS: ALB/GLOB Ratio 0.8 RATIO (0.9-2.4); AST(SGOT) 31 U/L (15-37); Alanine Aminotransfer ALT/SGPT 41 U/L (16-61); Albumin, Serum 3.6 g/dL (3.2-5.0); Alkaline Phosphatase 88 U/L (45-117); Anion Gap 10 (5-15); BUN 25 mg/dL (7-18); BUN/Creat Ratio 30.8 RATIO (10-20); Calcium,Total 8.9 mg/dL (8.5-10.1); Chloride 106 mmol/L (98-107); Creatinine, Serum 0.81 mg/dL (0.70-1.30); EST Glomerular Filtration Rate 104 mL/min (>60); Est Glom Filt Rate - Afr Amer 126 mL/min (>60); Globulin 4.3 g/dL (2.2-4.2); Glucose 85 mg/dL (74-106); Protein, Total 7.9 g/dL (6.4-8.2); Sodium Level 144 mmol/L (136-145); Thyroid Stim Hormone (TSH) 1.55 uIU/mL (0.358-3.74)
== END ==
PROVIDERS: Family Provider Family Medicine Geriatric Medicine; PCP Family Medicine Geriatric Medicine; Referring Provider Family Medicine Geriatric Medicine; Visit Provider Family Medicine Geriatric Medicine
DX: G40.909 Epilepsy, unspecified, not intractable, without status epilepticus (principal); R50.9 Fever, unspecified
CPT/HCPCS: 36415; 80053; 80164; 80177; 84443; 85025; 87633

== ENCOUNTER → 2018-04-28 11:01 | Outpatient (CLI) | payer MEDICARE, SELFPAY ==
[2018-01-11 14:15] VITALS: BMI 20.7
[2018-04-28 13:02] LABS: Absolute Lymphocyte Count 3.17 X10^3/ul (0.83-4.51); Absolute Neutrophil Count 4.1 X10^3/uL (2.0-7.7); Basophil# 0.02 X10^3/uL; Basophil% 0.2 % (0-1); Eosinophils% 1.1 % (0-5); Hematocrit 43.5 % (40-54); Hemoglobin 13.9 g/dl (13.0-16.5); Lymphocyte # 3.17 X10^3/ul (4.0); Lymphocyte % 36.1 % (19-41); Mean Corpuscular Hgb 29.8 pg (27.0-32.0); Mean Corpuscular Volume 93.1 fL (80-94); Mean Platelet Vol. 10.4 fl (6.2-12.0); Monocyte# 1.33 X10^3/uL; Monocyte% 15.1 % (0-10); Neutrophil # 4.14 X10^3/uL (2.7-7.7); Neutrophil % 47.3 % (47-70); Platelet Count 180 K/mm3 (150-450); RBC Distribution Width CV 15.3 % (11.6-14.6); RBC Distribution Width SD 51.8 fl (35.1-43.9); Red Blood Count 4.67 M/mm3 (4.6-6.2); White Blood Count 8.8 K/mm3 (4.4-11.0)
[2018-04-28 13:04] LABS: POSITIVE COUNT NO; POSITIVE DIFFERENTIAL NO; POSITIVE MORPHOLOGY NO
[2018-04-28 13:10] LABS: Anion Gap 7 (5-15); BUN 28 mg/dL (7-18); BUN/Creat Ratio 29.2 RATIO (10-20); Chloride 105 mmol/L (98-107); Creatinine, Serum 0.96 mg/dL (0.70-1.30); EST Glomerular Filtration Rate 86 mL/min (>60); Est Glom Filt Rate - Afr Amer 104 mL/min (>60); Glucose 71 mg/dL (74-106); Potassium 4.2 mmol/L (3.5-5.1); Sodium Level 142 mmol/L (136-145)
[2018-04-28 13:47] LABS: Valproic Acid (Depakene) Level 86 ug/mL (50-100)
[2018-05-02 11:00] LABS: KEPPRA (LEVETIRACETAM) 31.6 ug/mL (10.0-40.0)
== END ==
PROVIDERS: Family Provider Family Medicine Geriatric Medicine; PCP Family Medicine Geriatric Medicine; Visit Provider Family Medicine Geriatric Medicine
DX: G40.909 Epilepsy, unspecified, not intractable, without status epilepticus (principal); F05 Delirium due to known physiological condition
CPT/HCPCS: 36415; 80048; 80164; 80177; 85025

== ENCOUNTER → 2018-04-29 15:23 | Outpatient (CLI) | payer MEDICARE, SELFPAY ==
[2018-01-11 14:15] VITALS: BMI 20.7
== END ==
PROVIDERS: Family Provider Family Medicine Geriatric Medicine; PCP Family Medicine Geriatric Medicine; Referring Provider Family Medicine Geriatric Medicine; Visit Provider Family Medicine Geriatric Medicine
DX: E55.9 Vitamin D deficiency, unspecified (principal); N39.0 Urinary tract infection, site not specified
CPT/HCPCS: 87077; 87086; 87088; 87186

== ENCOUNTER 2018-06-30 21:49 | Emergency (ER) | payer MEDICARE, SELFPAY ==
[2018-01-11 14:15] VITALS: BMI 20.7
[2018-06-30 21:54] VITALS: BP 130/100; PULSE 93; RESP 16; TEMP 36.8; O2SAT 98; BMI 25.2
--- NOTE | 2018-06-30 22:51 | ED.VIS.GEN ---
History of Present Illness Chief Complaint: Seizure Informant: Patient Narrative: Patient presents with status post seizure. 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 They stated that he had a slight postictal state. This happened while he was lying down. It was witnessed by his family. He was just staring off and not responding to them. There is no injury. His last seizure was 5 to 6 months ago. He is on Depakote in Keppra twice a day and has not missed the dose. He has seen a neurologist in the past. He had a CAT scan of his brain just last year that showed no acute findings after a fall. The patient did not want to come in but was brought in by family stating that he normally has breakthrough seizures when he is dehydrated. Patient stated however he does not feel like he is dehydrated. Patient denies any complaints at this time. Stated he has had epileptic Seizures His Whole Life. He Was on Phenobarbital Approximately a Year Ago but Was Switched to Keppra. He Remains on Depakote As Well. - Past Medical History (1) Compression fx, thoracic spine Status: Acute (2) Deep vein thrombosis (DVT) of left lower extremity Status: Acute (3) Femur fracture, left Status: Acute (4) Hypercoagulable state Status: Acute (5) Multiple falls Status: Acute (6) Nondisplaced fracture of neck of left femur Status: Acute (7) S/P hip replacement Status: Acute (8) Tachycardia Status: Acute Comment: chest CT on 12/12/17 neg for PE but it was done day of leg fx in ER, looking for rib fx (9) BPH (benign prostatic hyperplasia) Status: Chronic (10) Blood clotting disorder Status: Chronic Comment: Increased factor VIII activity and high Von Willebrand (11) Hypothyroidism Status: Chronic (12) Parkinson disease Status: Chronic (13) Seizure disorder Status: Chronic Past Medical History - Allergies and Home Meds Allergies/Adverse Reactions: Allergies No Known Allergies Allergy (Verified 06/30/18 21:50) Primary Care Physician: Jose Alvarez Chi, MD [Primary Care Provider] - Prior records reviewed: Yes Surgical History: - - Patient with a prior Right hip replacement, and right wrist surgery Lives: With Family Smoking Status: Never smoker Alcohol: None Drugs: None Review of Systems General: Denies: Chills, Fever, Sweats Eyes: Denies: Visual changes - bilaterally, Diplopia ENT: Denies: Rhinorrhea, Sore throat Cardiovascular: Denies: Chest pain, Palpitations Respiratory: Denies: Dyspnea, Cough, Dyspnea on exertion Gastrointestinal: Denies: Abdominal pain, Nausea, Vomiting, Diarrhea, Melena, Hematochezia Genitourinary: Denies: Dysuria, Hematuria, Frequency Musculoskeletal: Denies: Back pain, Extremity Pain Skin: Denies: Rash, Wounds Neurological: Denies: Headache, Weakness, Numbness Physical Exam Vital Signs/Narrative: Vital Signs Temp Pulse Resp BP Pulse Ox 06/30/18 21:54 98.2 F 93 16 130/100 H 98 General: Well nourished, Well developed, No Acute Distress Head: Normocephalic, Atraumatic Eyes: Perrl, EOMI ENT: Moist mucous membranes, No rhinorrhea Neck: Supple, Nontender Cardiovascular: Regular rate, Regular rhythm, No murmurs Respiratory: No distress, CTA bilaterally, Chest nontender Abdomen: Soft, Nontender, Nondistended, Normal bowel sounds Back: Nontender, Normal Inspection Extremities: Nontender, No edema Skin: Normal color, No rash Neurological: Alert, Oriented x3, Cranial nerves II-XII grossly intact, Normal Strength, Normal Sensation, - - has chronic trach secondary to Parkinson's. Psychological: Normal affect, Normal Mood Diagnostic/Tx/Re-eval - Medical Decision Making Patient remained stable here. Given IV fluids. Lab work obtained and monitored. Given dose of Ativan. Lab work shows a hemoglobin of 12.3. Potassium slightly low. Patient remained stable here. No further seizure activity. He is already on 2 seizure medications. I think he just had a breakthrough seizure. He is not injured from this. I feel he can follow-up with his neurologist and family doctor tomorrow. Family are comfortable with this plan. Will be discharged. ED Disposition - Plan for ED Patient: Diagnosis: Breakthrough seizure Instructions: ED Seizure Recurrent Referrals: Jose Alvarez Chi, MD [Primary Care Provider] -
[2018-06-30] MEDS: 0.9% Normal Saline 1,000 ML 1000 ML IV (22:55)
[2018-06-30 23:00] LABS: Absolute Lymphocyte Count 3.82 X10^3/ul (0.83-4.51); Basophil# 0.04 X10^3/uL; Basophil% 0.5 % (0-1); Eosinophil# 0.19 X10^3/uL; Eosinophils% 2.3 % (0-5); Hematocrit 37.4 % (40-54); Hemoglobin 12.3 g/dl (13.0-16.5); Lymphocyte # 3.82 X10^3/ul (4.0); Lymphocyte % 46.5 % (19-41); Mean Corp Hgb Conc 32.9 g/gl (32-36); Mean Corpuscular Volume 94.2 fL (80-94); Mean Platelet Vol. 9.9 fl (6.2-12.0); Monocyte# 1.11 X10^3/uL; Monocyte% 13.5 % (0-10); Neutrophil # 3.03 X10^3/uL (2.7-7.7); Platelet Count 145 K/mm3 (150-450); RBC Distribution Width CV 14.1 % (11.6-14.6); RBC Distribution Width SD 48.7 fl (35.1-43.9); Red Blood Count 3.97 M/mm3 (4.6-6.2); White Blood Count 8.2 K/mm3 (4.4-11.0)
[2018-06-30 23:03] LABS: POSITIVE COUNT NO; POSITIVE DIFFERENTIAL NO; POSITIVE MORPHOLOGY NO
[2018-06-30 23:08] LABS: Anion Gap 8 (5-15); BUN 15 mg/dL (7-18); BUN/Creat Ratio 12.8 RATIO (10-20); Calcium,Total 8.9 mg/dL (8.5-10.1); Chloride 103 mmol/L (98-107); Creatinine, Serum 1.17 mg/dL (0.70-1.30); EST Glomerular Filtration Rate 68 mL/min (>60); Est Glom Filt Rate - Afr Amer 82 mL/min (>60); Estimated Creatinine Clearance 65.13 ml/min; Glucose 85 mg/dL (74-106); Potassium 3.3 mmol/L (3.5-5.1); Sodium Level 140 mmol/L (136-145)
[2018-06-30 23:44] VITALS: BP 168/110; PULSE 84; RESP 18; O2SAT 98
== END 2018-06-30 23:46 | disposition home or self-care (01) ==
PROVIDERS: Emergency Provider Emergency Medicine; Family Provider Family Medicine Geriatric Medicine; PCP Family Medicine Geriatric Medicine
DX: G40.909 Epilepsy, unspecified, not intractable, without status epilepticus (principal); D68.59 Other primary thrombophilia; N40.0 Benign prostatic hyperplasia without lower urinary tract symptoms; E03.9 Hypothyroidism, unspecified; G20 Parkinson's disease; Z86.718 Personal history of other venous thrombosis and embolism; Z79.899 Other long term (current) drug therapy
CPT/HCPCS: 80048; 85025; 96360; 99285; J7030; A4216

== ENCOUNTER → 2018-09-20 | Outpatient (CLI) | payer MEDICARE, SELFPAY ==
[2018-09-20 09:26] VITALS: BMI 25.2
[2018-09-20 12:56] LABS: ALB/GLOB Ratio 0.8 RATIO (0.9-2.4); AST(SGOT) 47 U/L (15-37); Alanine Aminotransfer ALT/SGPT 15 U/L (16-61); Albumin, Serum 3.4 g/dL (3.2-5.0); Alkaline Phosphatase 60 U/L (45-117); Anion Gap 10 (5-15); BUN 22 mg/dL (7-18); BUN/Creat Ratio 18.3 RATIO (10-20); Calcium,Total 9.4 mg/dL (8.5-10.1); Chloride 104 mmol/L (98-107); EST Glomerular Filtration Rate 66 mL/min (>60); Est Glom Filt Rate - Afr Amer 80 mL/min (>60); Globulin 4.4 g/dL (2.2-4.2); Glucose 84 mg/dL (74-106); Potassium 4.6 mmol/L (3.5-5.1); Protein, Total 7.8 g/dL (6.4-8.2); Sodium Level 140 mmol/L (136-145); Thyroid Stim Hormone (TSH) 1.23 uIU/mL (0.358-3.74)
[2018-09-20 13:12] LABS: Valproic Acid (Depakene) Level 110 ug/mL (50-100)
== END | disposition home or self-care (01) ==
PROVIDERS: Family Provider Family Medicine Geriatric Medicine; PCP Family Medicine Geriatric Medicine; Referring Provider Internal Medicine; Visit Provider Internal Medicine
DX: G40.909 Epilepsy, unspecified, not intractable, without status epilepticus (principal); G20 Parkinson's disease; E03.9 Hypothyroidism, unspecified
CPT/HCPCS: 36415; 80053; 80164; 84443

== ENCOUNTER → 2019-01-02 10:39 | Outpatient (CLI) | payer MEDICARE, SELFPAY ==
[2018-12-30 15:33] VITALS: BMI 25.2
[2019-01-02 12:45] LABS: Valproic Acid (Depakene) Level 127 ug/mL (50-100)
[2019-01-04 11:41] LABS: KEPPRA (LEVETIRACETAM) 69.4 ug/mL (10.0-40.0)
== END ==
PROVIDERS: Family Provider Family Medicine Geriatric Medicine; Visit Provider Nurse Practitioner Family
DX: G20 Parkinson's disease (principal); G40.909 Epilepsy, unspecified, not intractable, without status epilepticus
CPT/HCPCS: 36415; 80164; 80177

== ENCOUNTER → 2019-06-08 12:51 | Outpatient (CLI) | payer MEDICARE, MEDICAID, SELFPAY ==
[2018-12-30 15:33] VITALS: BMI 25.2
--- NOTE | 2019-06-08 13:08 | MRI_ITS ---
STUDY: MRI BRAIN WITH AND WITHOUT CONTRAST REASON FOR EXAM: Male, 58 years old. focal idiopathic epilepsy w/ seizure, H/O PARKINSONS, PT UNABLE TO BE STILL TECHNIQUE: Standardized multiplanar fat and water weighted pulse sequences were obtained. IV 15CC DOTAREM was administered for the contrast portion of the examination. COMPARISON: CT the brain December 27, 2017 FINDINGS: Moderate atrophy and minor periventricular white matter ischemic changes without mass effect or restricted diffusion.. Normal bilateral basal ganglia. Normal thalami. There is no extra-axial fluid accumulation. Normal flow voids within the major intracranial circulation suggesting patency by spin echo criteria. Normal venous enhancement. There is no enhancing intra-axial or extra-axial abnormality. Empty sella deformity of uncertain clinical significance. Normal, infundibular stalk, optic chiasm and hypothalamus. Normal tectal plate and pineal gland. Normal midbrain, blu and medulla. Normal cerebellum. Normal basal cisterns. Normal bilateral temporal bones. Normal bilateral internal auditory canals. No demonstrated orbital abnormality, within the constraints of a routine brain study. Mild right maxillary bilateral ethmoid sinus disease. Increased signal intensity within the right mastoid air cells consistent with inflammatory changes.. Normal calvarium and skull base. Normal visualized soft tissue structures. Normal visualized upper cervical spine. MRI/Brain W/WO Contrast IMPRESSION: Moderate atrophy and minor periventricular white matter ischemic changes. No evidence for acute infarct or mass. No enhancing lesions following contrast administration Electronically Signed: Damian Yanes MD at 17:04 EDT , Service support ,
== END ==
PROVIDERS: PCP Internal Medicine; Referring Provider Psychiatry & Neurology Neurology; Visit Provider Psychiatry & Neurology Neurology
DX: G40.019 Localization-related (focal) (partial) idiopathic epilepsy and epileptic syndromes with seizures of localized onset, intractable, without status epilepticus (principal)
CPT/HCPCS: 70553; A9575

== ENCOUNTER → 2019-07-24 10:42 | Outpatient (CLI) | payer MEDICARE, MEDICAID, SELFPAY ==
[2018-12-30 15:33] VITALS: BMI 25.2
[2019-07-24 11:48] LABS: Absolute Lymphocyte Count 2.19 X10^3/uL (0.83-4.51); Absolute Neutrophil Count 2.2 X10^3/uL (2.0-7.7); Basophil# 0.06 X10^3/uL; Basophil% 1.1 % (0-1); Eosinophil# 0.15 X10^3/uL; Eosinophils% 2.7 % (0-5); Hematocrit 43.2 % (40-54); Hemoglobin 13.9 g/dL (13.0-16.5); Lymphocyte # 2.19 X10^3/ul (4.0); Lymphocyte % 39.5 % (19-41); Mean Corp Hgb Conc 32.2 g/dL (32-36); Mean Corpuscular Hgb 30.1 pg (27.0-32.0); Mean Corpuscular Volume 93.5 fL (80-94); Mean Platelet Vol. 10.8 fl (6.2-12.0); Monocyte# 0.92 X10^3/uL; Monocyte% 16.6 % (0-10); NRBC Flagged by Analyzer 0 % (0-5); Neutrophil # 2.21 X10^3/uL (2.7-7.7); Neutrophil % 39.7 % (47-70); Platelet Count 120 K/mm3 (150-450); RBC Distribution Width SD 47.9 fl (35.1-43.9); Red Blood Count 4.62 M/mm3 (4.6-6.2); White Blood Count 5.6 K/mm3 (4.4-11.0)
[2019-07-24 12:41] LABS: ALB/GLOB Ratio 0.8 RATIO (0.9-2.4); AST(SGOT) 24 U/L (15-37); Alanine Aminotransfer ALT/SGPT 20 U/L (16-61); Albumin, Serum 3.4 g/dL (3.2-5.0); Alkaline Phosphatase 55 U/L (45-117); Anion Gap 9 (5-15); BUN 26 mg/dL (7-18); BUN/Creat Ratio 26.4 RATIO (10-20); Calcium,Total 9.3 mg/dL (8.5-10.1); Chloride 107 mmol/L (98-107); Creatinine, Serum 0.99 mg/dL (0.70-1.30); EST Glomerular Filtration Rate 83 mL/min (>60); Est Glom Filt Rate - Afr Amer 100 mL/min (>60); Globulin 4.3 g/dL (2.2-4.2); Glucose 85 mg/dL (74-106); Potassium 3.8 mmol/L (3.5-5.1); Protein, Total 7.7 g/dL (6.4-8.2); Sodium Level 138 mmol/L (136-145)
[2019-07-24 12:48] LABS: Valproic Acid (Depakene) Level 101 ug/mL (50-100)
[2019-07-27 05:19] LABS: KEPPRA (LEVETIRACETAM) 43.5 ug/mL (10.0-40.0); Topiramate 4.4 ug/mL (2.0-25.0)
== END ==
PROVIDERS: PCP Internal Medicine
DX: G40.019 Localization-related (focal) (partial) idiopathic epilepsy and epileptic syndromes with seizures of localized onset, intractable, without status epilepticus (principal)
CPT/HCPCS: 36415; 80053; 80164; 80177; 80201; 85025

== ENCOUNTER → 2019-10-17 15:10 | Outpatient (CLI) | payer MEDICARE, MEDICAID, SELFPAY ==
[2019-10-17 14:37] VITALS: BMI 25.2
[2019-10-17 15:14] LABS: Bacteria 0 SEEN /hpf (None Seen); Squamous Epithelial Cells - UA 0 SEEN /hpf (0-5)
[2019-10-17 17:23] LABS: Color, Urine Yellow (Yellow); Glucose, Dipstick Normal (Normal); Ketone-Dipstick Negative (Negative); Leukocyte Esterase-Dipstick Negative /ul (Negative); Nitrite-Dipstick Negative (Negative); Occult Blood-Urine Negative /ul (Negative); Protein-Dipstick 15 mg/dl (Negative); Urine Bilirubin Dipstick Negative (Negative); Urine Clarity Clear (Clear); Urine Urobilinogen 4 mg/dl (Normal)
[2019-10-17 17:31] LABS: Mucous, Urine 1+ /hpf (<or=2+); Red Blood Cells-Urine 0 SEEN /hpf (0-5); White Blood Cells 0-5 SEEN /hpf (0-5)
[2019-10-17 17:32] LABS: T4 Free Direct 1.15 ng/dL (0.76-1.46)
[2019-10-17 17:39] LABS: Absolute Lymphocyte Count 2.49 X10^3/uL (0.83-4.51); Absolute Neutrophil Count 2.3 X10^3/uL (2.0-7.7); Basophil# 0.04 X10^3/uL; Basophil% 0.7 % (0-1); Eosinophil# 0.14 X10^3/uL; Eosinophils% 2.3 % (0-5); Hematocrit 37.5 % (40-54); Hemoglobin 11.5 g/dL (13.0-16.5); Lymphocyte # 2.49 X10^3/ul (4.0); Lymphocyte % 41.8 % (19-41); Mean Corp Hgb Conc 30.7 g/dL (32-36); Mean Corpuscular Hgb 29.5 pg (27.0-32.0); Mean Corpuscular Volume 96.2 fL (80-94); Mean Platelet Vol. 9.8 fl (6.2-12.0); Monocyte# 1.01 X10^3/uL; Monocyte% 16.9 % (0-10); NRBC Flagged by Analyzer 0 % (0-5); Neutrophil # 2.27 X10^3/uL (2.7-7.7); Neutrophil % 38.1 % (47-70); Platelet Count 108 K/mm3 (150-450); RBC Distribution Width CV 14.4 % (11.6-14.6); RBC Distribution Width SD 50.9 fl (35.1-43.9)
== END ==
PROVIDERS: PCP Internal Medicine; Referring Provider Nurse Practitioner Family; Visit Provider Nurse Practitioner Family
DX: N40.1 Benign prostatic hyperplasia with lower urinary tract symptoms (principal); R32 Unspecified urinary incontinence; R35.0 Frequency of micturition; R00.0 Tachycardia, unspecified; E03.9 Hypothyroidism, unspecified
CPT/HCPCS: 36415; 81001; 84153; 84439; 84443; 85025; 87086; G0103

== ENCOUNTER 2020-04-24 10:49 | Emergency (ER) | payer MEDICARE, MEDICAID, SELFPAY ==
[2020-04-24 10:54] VITALS: BP 155/135; PULSE 87; RESP 16; TEMP 36.5; O2SAT 100; BMI 23.5
--- NOTE | 2020-04-24 11:48 | ED.DCSUM_ITS ---
History of Present Illness Chief Complaint: Fall Informant: Patient Narrative: Patient is a 59-year-old male with a past medical history of seizures, Parkinson, DVT on Xarelto who presents to the emergency department for left thigh pain. This occurred after a fall yesterday afternoon. He states that he tripped over his cat. His family helped to get him into bed and was not able to put any weight on the leg this morning. He denies hitting his head or losing consciousness. Denies any other injury or pain besides the left thigh. He denies any loss of sensation. He has not taken anything for pain. He does have a history of bilateral hip replacements. Past Medical History - Allergies and Home Meds Allergies/Adverse Reactions: Allergies No Known Allergies Allergy (Verified 02/27/20 15:41) Primary Care Physician: Harmony William MD [Primary Care Provider] - 1-2 Days if not improving Prior records reviewed: Yes Surgical History: - - Patient with a prior Right hip replacement, and right wrist surgery Smoking Status: Never smoker Review of Systems All systems negative except as indicated General: Denies: Chills, Fever, Sweats Eyes: Denies: Visual changes - bilaterally, Diplopia ENT: Denies: Rhinorrhea, Sore throat Cardiovascular: Denies: Chest pain, Palpitations Respiratory: Denies: Dyspnea, Cough, Dyspnea on exertion Gastrointestinal: Denies: Abdominal pain, Nausea, Vomiting, Diarrhea Genitourinary: Denies: Dysuria, Hematuria, Frequency Musculoskeletal: Reports: Extremity Pain. Denies: Neck pain, Back pain, Swelling Skin: Denies: Rash, Wounds Neurological: Denies: Headache, Weakness, Numbness Physical Exam Vital Signs/Narrative: Vital Signs Temp Pulse Resp BP Pulse Ox 04/24/20 10:54 97.7 F L 87 16 155/135 H 100 Inital Vital Signs reviewed: Yes General: Well nourished, Well developed, No Acute Distress, - - Tremor of upper extremities present Head: Normocephalic, Atraumatic Eyes: Perrl, EOMI ENT: Moist mucous membranes, No rhinorrhea Neck: Supple, Nontender Cardiovascular: Regular rate, Regular rhythm, No murmurs Respiratory: No distress, CTA bilaterally, Chest nontender Abdomen: Soft, Nontender, Nondistended, Normal bowel sounds Back: Nontender, Normal Inspection. Negative for: Spinal tenderness Extremities: No edema, Tenderness - Over left anterior thigh and medial thigh. No obvious deformity. No pain with anterior compression of hips bilaterally. Patient able to lift legs up off bed. 5 out of 5 muscle strength throughout. 2+ DP pulses bilaterally. Compartments are soft. Skin: Normal color, No rash Neurological: Alert, Oriented x3, Cranial nerves II-XII grossly intact, Normal Strength, Normal Sensation Psychological: Normal affect, Normal Mood Diagnostic/Tx/Re-eval Chest X-Ray - ED: - - Pelvis x-ray interpreted by myself. No obvious occult fracture. Bilateral hip replacements present. With radiologist interpretation. Femur x-ray interpreted by myself. No obvious fracture or dislocation present. Hip replacement present. Agree with radiologist interpretation. - Medical Decision Making Patient presents to the emerge department for fall causing left upper leg pain. Upon arrival to the emerge department he is in no acute distress. No obvious signs of external trauma. No head injury. He is anticoagulated. Will check x- ray of the femur and pelvis. X-ray did not reveal reveal any obvious fracture. He is neurovascular intact with good muscle strength. Feel this is most likely a contusion causing his discomfort. Will discharge home in stable condition. Recommend symptomatic praveen atment with isak. He is to follow-up with his PCP. Return precautions are reviewed. He is agreeable this plan. All questions were answered. ED Disposition - Plan for ED Patient: Disposition: Home or Assisted Living Diagnosis: Left thigh pain Instructions: ED Soft Tissue Contusion, ED RICE Referrals: Harmony William MD [Primary Care Provider] - 1-2 Days if not improving
--- NOTE | 2020-04-24 11:50 | RAD_ITS ---
STUDY: X-RAY - LEFT FEMUR REASON FOR STUDY: Male, 59 years old. Fall, anterior femur pain TECHNIQUE: 5 view(s) of the femur. COMPARISON: 12/27/2017. FINDINGS: Uncomplicated appearing left hip arthroplasty with stable left acetabular protrusio. No acute fracture, dislocation or osseous destruction. Osteopenia/osteoporosis. Mild left knee osteoarthritis. Mild soft tissue swelling. Vascular calcifications. RAD/Femur Min 2 Views IMPRESSION: Left femur acutely intact Uncomplicated appearing left hip arthroplasty with stable left acetabular protrusio Mild soft tissue swelling Electronically Signed: Luis Fernando Mcdonald DO at 12:08 EST Tel , Service support ,
--- NOTE | 2020-04-24 11:50 | RAD_ITS ---
STUDY: X-RAY - PELVIS REASON FOR EXAM: Male, 59 years old. Fall, left leg pain TECHNIQUE: One view of the pelvis was obtained. COMPARISON: 12/27/2017 FINDINGS: There is a non-specific bowel gas pattern. Normal visualized soft tissue structures. Normal bilateral iliac wings, sacroiliac joints and visualized sacrum. Normal visualized bilateral superior and inferior pubic rami. Normal pubic symphysis. Normal ischial tuberosities. Status post right hip arthroplasty. The prosthesis appears located. No ostial lysis to suggest loosening.. Status post left hip arthroplasty. Protrusio deformity which is unchanged.. RAD/Pelvis 1 or 2 Views IMPRESSION: No acute fracture or dislocation. Electronically Signed: David Finney MD at 12:14 EST Tel , Service support ,
[2020-04-24 13:47] VITALS: BP 101/79; PULSE 80; RESP 14; O2SAT 98
--- NOTE | 2020-04-24 13:47 | ED.RN ---
pt required full assist to change into paper scrubs and adult brief. clothing from arrival was soaked in urine. pt clean and escorted to vehicle in wheelchair. family watched as patient was assisted into vehicle. alexis rodas rn [id number]
== END 2020-04-24 13:57 | disposition home or self-care (01) ==
PROVIDERS: Emergency Provider Emergency Medicine; PCP Internal Medicine
DX: M79.652 Pain in left thigh (principal); R25.1 Tremor, unspecified; Z79.01 Long term (current) use of anticoagulants; Z79.899 Other long term (current) drug therapy; Z86.718 Personal history of other venous thrombosis and embolism; Z96.643 Presence of artificial hip joint, bilateral
CPT/HCPCS: 72170; 73552; 99285

== ENCOUNTER 2020-04-30 09:33 | Inpatient (IN) | payer MEDICARE, MEDICAID, SELFPAY ==
[2020-04-30] VITALS (8 sets, daily range): BP systolic 101–106; BP diastolic 48–83; PULSE 75–109; RESP 16–20; TEMP 36.6–36.8; O2SAT 97–100; BMI 25.2
--- NOTE | 2020-04-30 09:38 | EKG12_ITS ---
Test Reason : Blood Pressure : / mmHG Vent. Rate : 080 BPM Atrial Rate : 080 BPM P-R Int : 144 ms QRS Dur : 086 ms QT Int : 416 ms P-R-T Axes : 067 086 055 degrees QTc Int : 479 ms Normal sinus rhythm Normal ECG Confirmed by LIZZIE LEAVITT, TOÑO ([id number]), news videotape editor JANA SHORT ([id number]) on 05/06/2020 10:23:13 A M Referred By: BRYCE Confirmed By:SUSANNE SAMUEL MD
--- NOTE | 2020-04-30 09:56 | ED.VISSUMM ---
- ER Visit Summary Date of Service: 04/30/20 Chief Complaint: Left hip pain History of Present Illness: The patient is a 59 M presenting with left hip pain. Patient had a mechanical fall on April 23. He was seen in the ED on April 24. He had a negative x-rays at that time. Patient has been unable to get out of bed since. He is a poor historian. He lives with a assurance auditor. He denies other complaints. Physical Examination: Vitals are stable. Patient is afebrile. Alert no acute distress. HEENT exam is unremarkable. Neck is nontender Lungs are clear and equal bilaterally. Heart is regular rate and rhythm. Abdomen is soft nontender nondistended. Extremities left hip and left anterior thigh tenderness. Neurovascularly intact distally Skin is warm and dry. No focal neurologic deficit. Remainder of exam is unremarkable. Emergency Department Course and Treatment: EKG is sinus rhythm rate of 80 with no acute ischemic changes. CBC normal except hemoglobin 11.9. Chemistries normal except BUN 36. Troponin is negative. Patient was given morphine, Zofran IV. Pelvis x-ray read by myself and radiology shows stable pelvis and proximal femurs with no acute abnormality identified. Femur x-ray read by myself and radiology shows left femur intact. Uncomplicated left hip arthroplasty Mild soft tissue swelling. Chest x-ray read by my self and radiology shows stable cardiomegaly with hyperexpansion and left upper lobe scarring. No acute finding. Patient did have a short run of V. tach while in the emergency department. He denies complaints. Covid is negative. Discussed with hospitalist for admission. Disposition: Admission Impression: Intractable left hip pain This note was generated with [employer] dictation software. It may contain incorrect words, spelling, and punctuation that were not noted in review of the chart prior to signing ED Disposition - Plan for ED Patient:
[2020-04-30 10:01] LABS: Absolute Lymphocyte Count 2.77 X10^3/uL (0.83-4.51); Absolute Neutrophil Count 5.9 X10^3/uL (2.0-7.7); Basophil# 0.06 X10^3/uL; Basophil% 0.6 % (0-1); Eosinophil# 0.18 X10^3/uL; Eosinophils% 1.7 % (0-5); Hematocrit 37.5 % (40-54); Hemoglobin 11.9 g/dL (13.0-16.5); Lymphocyte # 2.77 X10^3/ul (4.0); Lymphocyte % 26.1 % (19-41); Mean Corp Hgb Conc 31.7 g/dL (32-36); Mean Corpuscular Hgb 30.6 pg (27.0-32.0); Mean Corpuscular Volume 96.4 fL (80-94); Mean Platelet Vol. 9.5 fl (6.2-12.0); Monocyte# 1.67 X10^3/uL; Monocyte% 15.7 % (0-10); NRBC Flagged by Analyzer 0 % (0-5); Neutrophil # 5.89 X10^3/uL (2.7-7.7); Neutrophil % 55.4 % (47-70); POSITIVE DIFFERENTIAL YES; Platelet Count 198 K/mm3 (150-450); RBC Distribution Width CV 12.2 % (11.6-14.6); RBC Distribution Width SD 42.5 fl (35.1-43.9); Red Blood Count 3.89 M/mm3 (4.6-6.2); White Blood Count 10.6 K/mm3 (4.4-11.0)
[2020-04-30 10:09] LABS: Differential Indicated SCAN CRITERIA MET
[2020-04-30 10:18] LABS: ALB/GLOB Ratio 0.7 RATIO (0.9-2.4); AST(SGOT) 20 U/L (15-37); Alanine Aminotransfer ALT/SGPT 7 U/L (16-61); Albumin, Serum 3.2 g/dL (3.2-5.0); Alkaline Phosphatase 51 U/L (45-117); Anion Gap 6 (5-15); BUN 36 mg/dL (7-18); BUN/Creat Ratio 39.9 RATIO (10-20); Calcium,Total 9.2 mg/dL (8.5-10.1); Chloride 112 mmol/L (98-107); EST Glomerular Filtration Rate 91 mL/min (>60); Est Glom Filt Rate - Afr Amer 111 mL/min (>60); Estimated Creatinine Clearance 82.63 ml/min; Globulin 4.3 g/dL (2.2-4.2); Glucose 102 mg/dL (74-106); Potassium 3.5 mmol/L (3.5-5.1); Protein, Total 7.5 g/dL (6.4-8.2); Sodium Level 145 mmol/L (136-145)
[2020-04-30] MEDS: Ondansetron 4 MG/2 ML Vial IV (10:21)
[2020-04-30] MEDS: Morphine 4 MG/ML Syringe IV (10:21)
[2020-04-30 10:49] LABS: Differential Comment SCANNED
--- NOTE | 2020-04-30 10:50 | RAD_ITS ---
STUDY: X-RAY - PELVIS REASON FOR EXAM: Male, 59 years old. Fall. Pain. TECHNIQUE: One view of the pelvis was obtained. COMPARISON: 12/27/2017. FINDINGS: There is a non-specific bowel gas pattern. Normal visualized soft tissue structures. Generalized osteopenia. Normal bilateral iliac wings, sacroiliac joints and visualized sacrum. Normal visualized bilateral superior and inferior pubic rami. Normal pubic symphysis. Normal ischial tuberosities. Stable bilateral total hip arthroplasties. 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 RAD/Pelvis 1 or 2 Views IMPRESSION: Stable pelvis and proximal femurs with no acute abnormality identified. Electronically Signed: Rudi Richardson MD at 11:26 EST , Service support ,
--- NOTE | 2020-04-30 10:50 | RAD_ITS ---
STUDY: X-RAY - LEFT FEMUR REASON FOR STUDY: Male, 59 years old. fall TECHNIQUE: Or view(s) of the femur. COMPARISON: None. FINDINGS: Uncomplicated left hip arthroplasty. No acute fracture, dislocation or osseous destruction. Osteopenia. Mild soft tissue swelling. RAD/Femur Min 2 Views IMPRESSION: Left femur intact Uncomplicated left hip arthroplasty Mild soft tissue swelling Electronically Signed: Luis Fernando Mcdonald DO at 11:15 EST Tel , Service support ,
--- NOTE | 2020-04-30 10:50 | RAD_ITS ---
STUDY: X-RAY CHEST REASON FOR EXAM: Male, 59 years old. Shortness of breath. TECHNIQUE: Single frontal view of the chest. COMPARISON: 02/25/2017 FINDINGS: Stable mild hyperexpansion. Linear scarring in the left upper lobe are unchanged. There is no demonstrated pleural abnormality. Stable cardiomegaly. Normal mediastinum and soy. Normal visualized pulmonary arteries. Aortic tortuosity unchanged. Normal visualized thoracic spine. Moderate arthrosis of the right glenohumeral joint. Remote healed fracture of the left clavicle unchanged. There is no demonstrated abnormality of the visualized soft tissue structures of the upper abdomen. RAD/Chest 1 View (Portable) IMPRESSION: Stable cardiomegaly with hyperexpansion and left upper lobe scarring. No acute finding. Electronically Signed: Rudi Richardson MD at 11:24 EST , Service support ,
[2020-04-30 11:27] LABS: Magnesium 2.3 mg/dL (1.6-2.6)
--- NOTE | 2020-04-30 11:54 | NURSING ---
MED SURG KITTOE INTRACTABLE LEFT HIP PAIN
--- NOTE | 2020-04-30 11:59 | HP.PCM_ITS ---
Problem List (1) Blood transfusion without reported diagnosis Status: Resolved (2) Nondisplaced fracture of neck of left femur Status: Resolved (3) Multiple falls Status: Acute (4) Compression fx, thoracic spine Status: Resolved (5) Hypercoagulable state Status: Chronic (6) Deep vein thrombosis (DVT) of left lower extremity Status: Chronic (7) Blood clotting disorder Status: Chronic Comment: Increased factor VIII activity and high Von Willebrand (8) Femur fracture, left Status: Resolved (9) Hypothyroidism Status: Chronic (10) Tachycardia Status: Resolved Comment: chest CT on 12/12/17 neg for PE but it was done day of leg fx in ER, looking for rib fx (11) S/P hip replacement Status: Chronic (12) Seizure disorder Status: Chronic (13) Parkinson disease Status: Chronic (14) BPH (benign prostatic hyperplasia) Status: Chronic History of Present Illness Date of Admission: 04/30/20 Chief Complaint: Multiple falls The patient is a 59 year old M with past medical history significant for osteopenia, seizure disorder hypothyroidism, previous history of ORIF involving the left hip following femoral neck fracture in 2018 who presented to the hospital with left hip pain and multiple falls. Patient had apparently fallen on 04/24/2020. Was seen in the emergency department with imaging studies which came back unremarkable. Decision was made to admit patient to regular nursing floor for symptom management with consultation placed social media marketing analyst to assist with disposition Past Medical History Past Medical History (Chronic Problems): Chronic Problems (Last Reviewed 02/27/20 @ 15:42 by Angela Diggs) Hypercoagulable state (Chronic) Deep vein thrombosis (DVT) of left lower extremity (Chronic) Blood clotting disorder (Chronic) Increased factor VIII activity and high Von Willebrand Hypothyroidism (Chronic) S/P hip replacement (Chronic) Seizure disorder (Chronic) Parkinson disease (Chronic) BPH (benign prostatic hyperplasia) (Chronic) Medical History: Medical History (Last Reviewed 04/30/20 @ 15:[address] Stephen Wolfe MD) Blood transfusion without reported diagnosis (Resolved) Z51.89 Deep vein thrombosis (DVT) of left lower extremity (Chronic) I82.402 Blood clotting disorder (Chronic) D68.9 Increased factor VIII activity and high Von Willebrand Femur fracture, left (Resolved) S72.92XA Hypothyroidism (Chronic) E03.9 Tachycardia (Resolved) R00.[address] on 12/12/17 neg for PE but it was done day of leg fx in ER, looking for rib fx Seizure disorder (Chronic) G40.909 Parkinson disease (Chronic) G20 BPH (benign prostatic hyperplasia) (Chronic) N40.0 HLD (hyperlipidemia) E78.5 Hypertension I10 Allergies No Known Allergies Allergy (Verified 02/27/20 15:41) Home Medications: Ambulatory Orders Medication Instructions Recorded atorvastatin 40 mg tablet 40 mg PO QHS #90 tab 05/03/19 tamsulosin 0.4 mg capsule 0.4 mg PO DAILY #90 cap 05/03/19 hospital bed See Rx Instructions .ROUTE 12/12/19 .MEDSUPPLY #1 ea ergocalciferol (vitamin D2) 1,250 50,000 unit PO Q7D #10 cap 12/27/19 mcg (50,000 unit) capsule mirtazapine 30 mg tablet 15 mg PO DAILY #90 tab 02/27/20 Propranolol HCl 60 mg PO DAILY 04/24/20 Topiramate [Topamax] 1 tab PO BID 04/24/20 Carbidopa/Levodopa 25/100 [Sinemet 1 tab PO TID 04/30/20 25/100] Divalproex Sodium [Depakote] 250 mg PO DAILY 04/30/20 Divalproex Sodium [Divalproex 2 tab PO QHS 04/30/20 Sodium ER] Levetiracetam 1,000 mg PO BID 04/30/20 Levothyroxine Sodium [Synthroid] 50 mcg PO DAILY 04/30/20 Rivaroxaban [Xarelto] 20 mg PO DAILY 04/30/20 Surgical History: Surgical History (Last Reviewed 04/30/20 @ 15:[address] Stephen Wolfe MD) S/P hip replacement (Chronic) Z96.649 History of left hip replacement Z96.642 Dec 2017 History of orthopedic surgery Z98.890 rods in Rt hip after fracture Surgical History: - - Patient with a prior Right hip replacement, and right wrist surgery Smoking Status: Never smoker - *Family History Maternal Family History: Family History (Last Reviewed 04/30/20 @ 15:[address] Stephen Wolfe MD) Mother Breast cancer Father Mouth cancer Review of Systems Constitutional: Denies: Anorexia, Chills, Fever, Night Sweats, Weight Change HEENT: Denies: Head Aches, Sinus Congestion, Sinus Drainage Cardiovascular: Denies: Chest Pain, Orthopnea, Palpitations, Paroxysmal Noc. Dyspnea Respiratory: Denies: Cough, Shortness of breath at rest, Shortness of breath upon exertion, Sputum production Gastrointestinal: Denies: Abdominal Pain, Hematemesis, Hematochezia, Nausea, Melena, Vomiting Genitourinary: Denies: Dysuria, Frequency, Hematuria, Urgency Musculoskeletal: Reports: Joint Pain Skin: Denies: Rash Neurological: Denies: Focal weakness, Numbness, Tingling Psychiatric: Denies: Homicidal Ideations, Suicidal Ideations Hematologic/ Lymphatic: Denies: Easy Bruising, Easy Bleeding VTE Information - Inpt Only VTE Present on Admission: No VTE Mechan Device Prophylaxis: None VTE Pharm Prophylaxis ordered?: Yes Patient Problems: Active and Suspected Problems (Last Reviewed 02/27/20 @ 15:42 by Angela Diggs) Multiple falls (Acute) Objective: GENERAL: Patient appears frail HEENT: Atraumatic; EYES; Anicteric, Normal Conjunctiva NECK; supple, normal thyroid, RESPIRATORY: Diminished to auscultation CARDIOVASCULAR: Regular S1 S2, GI: soft, normoactive bowel sounds, : No Renal angle tenderness; EXTREMITIES: No edema, no clubbing, MUSCULOSKELETAL: Restricted in the left hip NEURO: Awake; no lateralizing signs. SKIN: No Rash PSYCH; Flat affect - Physical Exam Vitals/I&O's: Vital Signs Temp Pulse Resp BP Pulse Ox 97.9 F 79 20 H 102/79 100 04/30/20 09:35 04/30/20 10:10 04/30/20 10:10 04/30/20 10:10 04/30/20 10:10 Oxygen Delivery Method Room Air Weight: 72.9 kg Body Mass Index (BMI) 25.2 Microbiology Past 72 Hours 04/30/20 11:00 Mucosa - Nose SARS-CoV-2 Antigen (Rapid) - Final Laboratory Results 04/30/20 09:45: WBC 10.6, RBC 3.89 L, Hgb 11.9 L, Hct 37.5 L, MCV 96.4 H, MCH 30.6, MCHC 31.7 L, RDW Std Deviation 42.5, RDW Coeff of Colleen 12.2, Plt Count 198, MPV 9.5, Immature Gran % (Auto) 0.500, Neut % (Auto) 55.4, Lymph % (Auto) 26.1, [place] % (Auto) 15.7 H, Eos % (Auto) 1.7, Baso % (Auto) 0.6, Absolute Neuts (auto) 5.9, Absolute Lymphs (auto) 2.77, Nucleated RBC % 0, Differential Comment SCANNED 04/30/20 09:45: Sodium 145, Potassium 3.5, Chloride 112 H, Carbon Dioxide 27.0, Anion Gap 6, BUN 36 H, Creatinine 0.90, Estim Creat Clear Calc 82.63, Est GFR (MDRD) Af Amer 111, Est GFR (MDRD) Non-Af 91, BUN/Creatinine Ratio 39.9 H, Glucose 102, Calcium 9.2, Total Bilirubin 0.90, AST 20, ALT 7 L, Alkaline Phosphatase 51, Troponin I < 0.015, Total Protein 7.5, Albumin 3.2, Globulin 4.3 H, Albumin/Globulin Ratio 0.7 L 04/30/20 09:45: Magnesium 2.3 Assessment/Plan All Active Problems (Last Reviewed 02/27/20 @ 15:42 by Angela Diggs) Blood transfusion without reported diagnosis (Resolved) Nondisplaced fracture of neck of left femur (Resolved) Multiple falls (Acute) Compression fx, thoracic spine (Resolved) Femur fracture, left (Resolved) Tachycardia (Resolved) Patient is a 59-year-old male admitted for generalized weakness as well as left hip pain 1. Failure to thrive ?Admitted to regular nursing floor requested for PT OT eval and social media marketing analyst to assist with discharge planning 2. Left hip pain Patient has history of left femoral neck hip fracture status post ORIF in 2018 presented with syncopal left hip pain initial imaging studies unremarkable ordered CT of the hip for subsequent evaluation 3. Seizure disorder ?Discontinue patient antiseizure medications 4. Hypothyroidism - Patient is on levothyroxine home dose continued 5. Parkinson's disease - on Sinemet 6. Dyslipidemia - on atorvastatin 7. BPH on Flomax 8. History of DVT - on Xarelto OBSV E&M: [id number] Initial observation care L3
--- NOTE | 2020-04-30 12:33 | ED.RN ---
this rn assumes care at this time
[2020-04-30 14:47] LABS: CPK Total, Creatine Kinase 275 U/L (39-308)
[2020-04-30 15:07] LABS: Mucous, Urine 0 SEEN /hpf (<or=2+)
[2020-04-30 15:09] LABS: Color, Urine Yellow (Yellow); Glucose, Dipstick Normal (Normal); Ketone-Dipstick 15 mg/dl (Negative); Leukocyte Esterase-Dipstick 100 /ul (Negative); Nitrite-Dipstick Negative (Negative); Occult Blood-Urine 10 /ul (Negative); Protein-Dipstick 30 mg/dl (Negative); Urine Clarity Sl. Cloudy (Clear); Urine Urobilinogen 12 mg/dl (Normal)
[2020-04-30 15:12] LABS: Urine Bilirubin Dipstick 3 mg/dL (Negative)
[2020-04-30 15:15] LABS: Bacteria 1+ /hpf (None Seen); Red Blood Cells-Urine 0-5 SEEN /hpf (0-5); Squamous Epithelial Cells - UA 0-5 SEEN /hpf (0-5); White Blood Cells 10-25 SEEN /hpf (0-5)
[2020-04-30] MEDS: Acetaminophen 325 MG Tablet 650 MG PO (15:34)
--- NOTE | 2020-04-30 16:58 | CHAPLAIN ---
Addendum entered by Sina Chester 05/01/20 11:34: Patient was not seen on 04/30. previous note stated that copying machine mechanic saw spouse but that was of different patient Original Note: Type of Pastoral Visit ___ Initial Visit ___ Follow-up Visit ___ On-call Visit ___ General Patient Visit ___ Spiritual Assessment ___ Family Conference ___ Bereavement ___ Rapid Response ___ Code Blue ___ Other (describe below) Pastoral Care Referral From ___ Patient ___ Family ___ Nurse ___ Physician ___ Ingredient Scaler Helper ___ Data Center Engineer ___ Other (describe below) Sacrament/Intervention ___ Active listening ___ Anointing ___ Jehovah'S Witness ___ Bereavement ___ Communion ___ Regina exploration ___ ___ Life review ___ Prayer ___ Reconciliation ___ Sacrament of Sick ___ Supportive presence ___ Wedding ___ Other (describe below) Pastoral Comments patient is sleeping at time of attempted visit; spouse is in room; visit postponed
[2020-04-30] MEDS: Carbidopa/Levodopa 25/100 Tablet PO (17:57)
[2020-04-30] MEDS: Rivaroxaban 20 MG Tablet PO (17:58)
[2020-04-30] MEDS: Tamsulosin HCl 0.4 MG Capsule PO (18:00)
[2020-04-30] MEDS: Divalproex (ER) 250 MG Tablet 500 MG PO (21:35)
[2020-04-30] MEDS: levETIRAcetam 1,000 MG Tablet 1000 MG PO (21:35)
[2020-04-30] MEDS: Atorvastatin Calcium 40 MG Tablet PO (21:36)
[2020-04-30] MEDS: Topiramate 50 MG Tablet PO (21:37)
[2020-04-30] MEDS: Mirtazapine 15 MG Tablet PO (21:37)
[2020-05-01] VITALS (7 sets, daily range): BP systolic 101–134; BP diastolic 63–97; PULSE 68–78; RESP 16–18; TEMP 36.2–37.1; O2SAT 96–100
[2020-05-01] MEDS: 0.9% Normal Saline 1,000 ML 100 ML IV (05:31)
[2020-05-01] MEDS: Levothyroxine 50 MCG Tablet PO (05:33)
[2020-05-01] MEDS: Carbidopa/Levodopa 25/100 Tablet PO ×3 (05:33→17:14)
[2020-05-01 06:49] LABS: Absolute Lymphocyte Count 3.61 X10^3/uL (0.83-4.51); Absolute Neutrophil Count 2.6 X10^3/uL (2.0-7.7); Basophil# 0.05 X10^3/uL; Basophil% 0.6 % (0-1); Eosinophil# 0.23 X10^3/uL; Hematocrit 31.4 % (40-54); Hemoglobin 9.7 g/dL (13.0-16.5); Lymphocyte # 3.61 X10^3/ul (4.0); Lymphocyte % 46.6 % (19-41); Mean Corp Hgb Conc 30.9 g/dL (32-36); Mean Corpuscular Hgb 30.9 pg (27.0-32.0); Mean Platelet Vol. 9.7 fl (6.2-12.0); Monocyte# 1.19 X10^3/uL; Monocyte% 15.4 % (0-10); NRBC Flagged by Analyzer 0 % (0-5); Neutrophil # 2.63 X10^3/uL (2.7-7.7); Neutrophil % 33.9 % (47-70); Platelet Count 146 K/mm3 (150-450); RBC Distribution Width CV 12.2 % (11.6-14.6); RBC Distribution Width SD 45.1 fl (35.1-43.9); Red Blood Count 3.14 M/mm3 (4.6-6.2); White Blood Count 7.8 K/mm3 (4.4-11.0)
[2020-05-01 07:16] LABS: AST(SGOT) 26 U/L (15-37); Alanine Aminotransfer ALT/SGPT 8 U/L (16-61); Albumin, Serum 2.3 g/dL (3.2-5.0); Alkaline Phosphatase 42 U/L (45-117); Anion Gap 6 (5-15); BUN 33 mg/dL (7-18); BUN/Creat Ratio 39.6 RATIO (10-20); Bilirubin, Direct 0.11 mg/dL (0.00-0.30); Calcium,Total 8.2 mg/dL (8.5-10.1); Chloride 111 mmol/L (98-107); Creatinine, Serum 0.83 mg/dL (0.70-1.30); EST Glomerular Filtration Rate 100 mL/min (>60); Est Glom Filt Rate - Afr Amer 121 mL/min (>60); Estimated Creatinine Clearance 89.59 ml/min; Globulin 3.5 g/dL (2.2-4.2); Glucose 94 mg/dL (74-106); Potassium 3.5 mmol/L (3.5-5.1); Protein, Total 5.8 g/dL (6.4-8.2); Sodium Level 141 mmol/L (136-145)
--- NOTE | 2020-05-01 08:00 | PN_ITS ---
Patient Problems: Active and Suspected Problems (Last Reviewed 04/30/20 @ 15:[address] Stephen Wolfe MD) Multiple falls (Acute) Reason for Visit: Adult failure to thrive Subjective: Patient is a 59-year-old male admitted for generalized weakness as well as left hip pain Urinalysis obtained on admission consistent with cystitis patient started on Rocephin Objective: GENERAL: Patient appears frail HEENT: Atraumatic; EYES; Anicteric, Normal Conjunctiva NECK; supple, normal thyroid, RESPIRATORY: Diminished to auscultation CARDIOVASCULAR: Regular S1 S2, GI: soft, normoactive bowel sounds, : No Renal angle tenderness; EXTREMITIES: No edema, no clubbing, MUSCULOSKELETAL: Restricted in the left hip NEURO: Awake; no lateralizing signs. SKIN: No Rash PSYCH; Flat affect Vitals/I&O's: Vital Signs Temp Pulse Resp BP Pulse Ox 98.2 F 73 16 134/97 H 100 05/01/20 02:00 05/01/20 04:08 05/01/20 02:00 05/01/20 02:00 05/01/20 02:00 Oxygen Delivery Method Room Air Weight: 72.9 kg Body Mass Index (BMI) 25.2 Intake and Output for Last 24 Hours 04/29/20 04/30/20 05/01/20 23:59 23:59 23:59 Intake Total 350 / 550 750 / 750 Output Total 250 / 250 0 / 0 Balance 100 / 300 750 / 750 Microbiology Past 72 Hours 04/30/20 11:00 Mucosa - Nose SARS-CoV-2 Antigen (Rapid) - Final Laboratory Results 04/30/20 09:45: WBC 10.6, RBC 3.89 L, Hgb 11.9 L, Hct 37.5 L, MCV 96.4 H, MCH 30.6, MCHC 31.7 L, RDW Std Deviation 42.5, RDW Coeff of Colleen 12.2, Plt Count 198, MPV 9.5, Immature Gran % (Auto) 0.500, Neut % (Auto) 55.4, Lymph % (Auto) 26.1, [place] % (Auto) 15.7 H, Eos % (Auto) 1.7, Baso % (Auto) 0.6, Absolute Neuts (auto) 5.9, Absolute Lymphs (auto) 2.77, Nucleated RBC % 0, Differential Comment SCANNED 04/30/20 09:45: Sodium 145, Potassium 3.5, Chloride 112 H, Carbon Dioxide 27.0, Anion Gap 6, BUN 36 H, Creatinine 0.90, Estim Creat Clear Calc 82.63, Est GFR (MDRD) Af Amer 111, Est GFR (MDRD) Non-Af 91, BUN/Creatinine Ratio 39.9 H, Glucose 102, Calcium 9.2, Total Bilirubin 0.90, AST 20, ALT 7 L, Alkaline Phosphatase 51, Troponin I < 0.015, Total Protein 7.5, Albumin 3.2, Globulin 4.3 H, Albumin/Globulin Ratio 0.7 L 04/30/20 09:45: Magnesium 2.3 04/30/20 09:45: Total Creatine Kinase 275 04/30/20 14:30: Urine Color Yellow, Urine Clarity Sl. Cloudy, Urine pH 6.0, Ur Specific [place] 1.020, Urine Protein 30 H, Urine Glucose (UA) Normal, Urine Ketones 15 H, Urine Occult Blood 10 H, Urine Nitrite Negative, Urine Bilirubin 3 H, Urine Urobilinogen 12 H, Ur Leukocyte Esterase 100 H, Urine RBC 0-5 SEEN, Urine WBC 10-25 SEEN, Ur Squamous Epith Cells 0-5 SEEN, Urine Bacteria 1+, Urine Mucus 0 SEEN 05/01/20 06:40: Sodium 141, Potassium 3.5, Chloride 111 H, Carbon Dioxide 24.0, Anion Gap 6, BUN 33 H, Creatinine 0.83, Estim Creat Clear Calc 89.59, Est GFR (MDRD) Af Amer 121, Est GFR (MDRD) Non-Af 100, BUN/Creatinine Ratio 39.6 H, Glucose 94, Calcium 8.2 L, Phosphorus 4.0, Magnesium 2.0, Total Bilirubin 0.60, Direct Bilirubin 0.11, AST 26, ALT 8 L, Alkaline Phosphatase 42 L, Total Protein 5.8 L, Albumin 2.3 L, Globulin 3.5 05/01/20 06:40: WBC 7.8, RBC 3.14 L, Hgb 9.7 L, Hct 31.4 L, MCV 100.0 H, MCH 30.9, MCHC 30.9 L, RDW Std Deviation 45.1 H, RDW Coeff of Colleen 12.2, Plt Count 146 L, MPV 9.7, Immature Gran % (Auto) 0.500, Neut % (Auto) 33.9 L, Lymph % (Auto) 46.6 H, [place] % (Auto) 15.4 H, Eos % (Auto) 3.0, Baso % (Auto) 0.6, Absolute Neuts (auto) 2.6, Absolute Lymphs (auto) 3.61, Nucleated RBC % 0 Current Medications Acetaminophen (Acetaminophen 325 Mg Tablet) 650 mg PO Q6H PRN PRN PRN Reason: Pain Score 1-10/Temp > 100.7 F Last Admin: 04/30/20 15:34 Dose: 650 mg Documented by: Al Hydroxide/Mg Hydroxide (Mag Hydrox/Al Hydrox/Simeth 30 Ml Udc) 30 ml PO Q6H PRN PRN PRN Reason: Gastric Burning Albuterol Sulfate (Albuterol 2.5 Mg/3 Ml Vial.Neb.) 2.5 mg INHALATION Q2H PRN PRN PRN Reason: Shortness of Breath/Wheezing Atorvastatin Calcium (Atorvastatin Calcium 40 Mg Tablet) 40 mg PO QHS [facility] Last Admin: 04/30/20 21:36 Dose: 40 mg Documented by: Carbidopa/Levodopa (Carbidopa/Levodopa 25/100 Tablet) 1 tablet PO TIDAC [facility] Last Admin: 05/01/20 05:33 Dose: 1 tablet Documented by: Divalproex Sodium (Divalproex (Er) 250 Mg Tablet) 500 mg PO QHS [facility] Last Admin: 04/30/20 21:35 Dose: 500 mg Documented by: Divalproex Sodium (Divalproex (Er) 250 Mg Tablet) [facility] Ergocalciferol (Ergocalciferol 50,000 Unit Capsule) 50,000 unit PO Q7D [facility] Last Admin: 04/30/20 17:57 Dose: 50,000 unit Documented by: Sodium Chloride () 1,000 mls @ 100 mls/hr IV .Q10H [facility] Stop: 05/01/20 15:14 Last Admin: 05/01/20 05:31 Dose: 100 mls/hr Documented by: Levetiracetam (Levetiracetam 1,000 Mg Tablet) 1,000 mg PO BID [facility] Last Admin: 04/30/20 21:35 Dose: 1,000 mg Documented by: Levothyroxine Sodium (Levothyroxine 50 Mcg Tablet) 50 mcg PO DAILY@0600 [facility] Last Admin: 05/01/20 05:33 Dose: 50 mcg Documented by: Melatonin (Melatonin 3 Mg Tablet) 3 mg PO QHS PRN PRN PRN Reason: INSOMNIA Mirtazapine (Mirtazapine 15 Mg Tablet) 15 mg PO DAILY@2200 [facility] Last Admin: 04/30/20 21:37 Dose: 15 mg Documented by: Nitroglycerin (Nitroglycerin (Inpatient Use) 0.4 Mg Tab.Subl) 0.4 mg SL Q5M PRN PRN Reason: CARDIAC/CHEST PAIN Nutritional Formula (Lactose Free) (Ensure Enlive 120 Ml Liquid) 120 ml PO 4X/DAY [facility] Last Admin: 04/30/20 21:40 Dose: 120 ml Documented by: Ondansetron HCl (Ondansetron 4 Mg/2 Ml Vial) 4 mg IV Q8H PRN PRN PRN Reason: NAUSEA/VOMITING Oxycodone HCl (Oxycodone 5 Mg Tablet) 5 mg PO Q4H PRN PRN PRN Reason: Pain Score 4-5 Oxycodone HCl (Oxycodone 5 Mg Tablet) 10 mg PO Q4H PRN PRN PRN Reason: Pain Score 6-10 Promethazine HCl (Promethazine 25 Mg/Ml Syringe) 25 mg IM Q6H PRN PRN PRN Reason: Breakthrough nausea/vomiting Propranolol HCl (Propranolol La 60 Mg Capsule) 60 mg PO DAILY [facility] Rivaroxaban (Rivaroxaban 20 Mg Tablet) 20 mg PO DAILY@1700 [facility] Last Admin: 04/30/20 17:58 Dose: 20 mg Documented by: Senna/Docusate Sodium (Senna/Docusate Sodium 1 Tablet) 2 tablet PO BID PRN PRN PRN Reason: Constipation Sodium Chloride (0.9% Saline Lock 10 Ml Syringe) 10 - 40 ml IV UD PRN PRN Reason: SALINE FLUSH Tamsulosin HCl (Tamsulosin Hcl 0.4 Mg Capsule) 0.4 mg PO DAILY@1730 [facility] Last Admin: 04/30/20 18:00 Dose: 0.4 mg Documented by: Topiramate (Topiramate 50 Mg Tablet) 50 mg PO BID [facility] Last Admin: 04/30/20 21:37 Dose: 50 mg Documented by: STROKE Vital Signs/Narrative: Vital Signs Pulse 05/01/20 04:08 73 Medical Necessity - Tobacco Use Smoking Status: Never smoker Assessment/Plan All Active Problems (Last Reviewed 04/30/20 @ 15:[address] Stephen Wolfe MD) Blood transfusion without reported diagnosis (Resolved) Nondisplaced fracture of neck of left femur (Resolved) Multiple falls (Acute) Compression fx, thoracic spine (Resolved) Femur fracture, left (Resolved) Tachycardia (Resolved) Patient is a 59-year-old male admitted for generalized weakness as well as left hip pain 1. Failure to thrive ?Admitted to regular nursing floor requested for PT OT eval and social media specialist to assist with discharge planning 2. Left hip pain Patient has history of left femoral neck hip fracture status post ORIF in 2018 presented with syncopal left hip pain initial imaging studies unremarkable ordered CT of the hip for subsequent evaluation 3. Seizure disorder ?Discontinue patient antiseizure medications 4. Hypothyroidism - Patient is on levothyroxine home dose continued 5. Parkinson's disease - on Sinemet 6. Dyslipidemia - on atorvastatin 7. BPH on Flomax 8. History of DVT - on Xarelto 9. Acute cystitis ?Started on Rocephin urine culture sent OBSV E&M: [id number] Subsequent observation care L3
[2020-05-01] MEDS: levETIRAcetam 1,000 MG Tablet 1000 MG PO ×2 (09:46→20:40)
[2020-05-01] MEDS: Divalproex (ER) 250 MG Tablet PO (09:47)
[2020-05-01] MEDS: Propranolol LA 60 MG Capsule PO (09:47)
[2020-05-01] MEDS: Topiramate 50 MG Tablet PO ×2 (09:47→20:41)
--- NOTE | 2020-05-01 09:47 | CASEMGMT ---
Social Work Assessment Referral Date: 05/01/2020 Date of Assessment: 05/01/2020 Reason for consult: SNF placement Personal Status: SW met with pt to complete initial assessment. Pt is alert and orientated x3 and answers questions appropriately. Living Arrangements: Pt states he lives with a Caregiver named Mary Hernandez. Pt states his caregiver stays with him 14/09. Pt states he lives in a trailer with three steps to enter. DME: None PCP: Dr. William Pharmacy: [facility] ADLs: Pt states he is able to bath himself but his caregiver assist with all other ADLs. Pt states he doesn't drive. Income: Pt states he is on Disability and SSI. Pt states his Disability and SSI is due to medical reasons, not Mental Health. Pt confirms he has history of seizures. HCPOA/LW: Pt states none but after reviewing pt's chart, pt has completed HCPOA and named Mary Hernandez (Caregiver) as pt's HCPOA. Mental Health Hx: Pt denied Substance Abuse Hx: Pt denied SNF: Pt states he has been to [facility] in the past and also another SNF in [place] but unable to recall name of SNF in [place]. (Pre previous notes, pt did go to [facility]). SW spoke with pt about discharge plans. Pt confirms, plan is SNF. Pt states he would like to return to [facility] as he liked it there. Pt states he didn't like the SNF in [place]. SW explained referral process. Patient was provided a list of SNF providers including quality and resource use data and consistent with the patient?s preferred geographic region, medical needs, and insurance network. The patient?s preferred provider is [facility]. Pt is medically ready for discharge once placement has been secured. Pt's insurance is still waiving pre-certs, but it depends on the SNF if they will still require pre-cert or not. GIORGI placed a call to [facility] and spoke with Paz. Paz states she is unsure about bed availability at this time, will have more information later today. Brittnee states once she knows about bed availability she will call this worker back. GIORGI informed Paz that pt is medically ready for discharge today if placement can be secured. Plan: [facility] pending acceptance and bed availability Christiane Lemus KEY ACCOUNT MANAGER, LEGAL SERVICES PROFESSIONAL
[2020-05-01] MEDS: Ceftriaxone 1 GM/50 ML BAG IV (11:14)
--- NOTE | 2020-05-01 13:05 | CHAPLAIN ---
Type of Pastoral Visit _x__ Initial Visit ___ Follow-up Visit ___ On-call Visit ___ General Patient Visit ___ Spiritual Assessment ___ Family Conference ___ Bereavement ___ Rapid Response ___ Code Blue ___ Other (describe below) Pastoral Care Referral From _x__ Patient ___ Family ___ Nurse ___ Physician ___ Sugar Reprocess Operator Head ___ Prospecting Driller ___ Other (describe below) Sacrament/Intervention _x__ Active listening ___ Anointing ___ Gnosticism ___ Bereavement ___ Communion ___ Regina exploration ___ ___ Life review _x__ Prayer ___ Reconciliation ___ Sacrament of Sick _x__ Supportive presence ___ Wedding ___ Other (describe below) Pastoral Comments patient speaks minimally but is able to answer most of the questions; pt says he was moved from his home in [place] due to of family members there; pt says he did not like to move but had no options; pt says he has no worries or needs; pt willing to have presence and prayer of support
--- NOTE | 2020-05-01 13:10 | CASEMGMT ---
Addendum entered by Christiane Lemus 05/01/20 16:04: SW received call from Brittnee at [facility] stating they can admit pt tomorrow, would like results of Urine Culture. SW updated Brittnee that Urin Culture is pending, will fax over when available. Brittnee requests transportation for after 10:00am tomorrow. SW updated pt, pt states understanding. Plan: [place] [facility] tomorrow Addendum entered by Christiane Lemus 05/01/20 15:26: SW faxed referral to [facility]. Addendum entered by Christiane Lemus 05/01/20 15:22: SW in to speak with pt. SW updated pt that at this time, it is sounding like [facility] will not have a bed availability asked for other choices. At first, pt didn't give this worker another option. SW informed pt that pt will need to pick another SNF as pt cannot remain at [facility] until a bed becomes available at [facility]. Pt told this worker to try [facility] in [place]. GIORGI placed another call to Brittnee in admissions. Brittnee states she will have a bed available tomorrow, asked for referral to be sent to [phone]. SW asked Brittnee if she will require pre-cert or not. Brittnee states she will check with her business office. GIORGI updated physician, no discharge today. Plan: [place] [facility] tomorrow pending acceptance Original Note: Social Work Note GIORGI placed a call to [facility] and left message for Paz in admissions to inquire about bed availability. SW waiting for call back. Christiane Lemus IRRIGATOR, WEAVING SUPERVISOR
[2020-05-01] MEDS: Rivaroxaban 20 MG Tablet PO (17:14)
[2020-05-01] MEDS: Acetaminophen 325 MG Tablet 650 MG PO (17:14)
[2020-05-01] MEDS: Tamsulosin HCl 0.4 MG Capsule PO (17:14)
[2020-05-01] MEDS: 0.9% Saline Lock 10 ML Syringe IV (17:15)
[2020-05-01] MEDS: oxyCODONE 5 MG Tablet PO (20:41)
[2020-05-01] MEDS: Atorvastatin Calcium 40 MG Tablet PO (20:41)
[2020-05-01] MEDS: Divalproex (ER) 250 MG Tablet 500 MG PO (20:41)
[2020-05-01] MEDS: Mirtazapine 15 MG Tablet PO (20:41)
[2020-05-02 01:55] VITALS: BP 94/62; PULSE 68; RESP 16; TEMP 36.9; O2SAT 98
[2020-05-02] MEDS: Levothyroxine 50 MCG Tablet PO (05:19)
[2020-05-02] MEDS: Carbidopa/Levodopa 25/100 Tablet PO ×3 (05:19→16:51)
[2020-05-02] MEDS: Acetaminophen 325 MG Tablet 650 MG PO ×2 (05:19→12:22)
[2020-05-02 06:51] LABS: Absolute Lymphocyte Count 3.51 X10^3/uL (0.83-4.51); Absolute Neutrophil Count 3.4 X10^3/uL (2.0-7.7); Basophil# 0.05 X10^3/uL; Basophil% 0.6 % (0-1); Eosinophil# 0.24 X10^3/uL; Eosinophils% 2.8 % (0-5); Hematocrit 30.6 % (40-54); Hemoglobin 9.7 g/dL (13.0-16.5); Lymphocyte # 3.51 X10^3/ul (4.0); Lymphocyte % 41.2 % (19-41); Mean Corp Hgb Conc 31.7 g/dL (32-36); Mean Corpuscular Hgb 30.7 pg (27.0-32.0); Mean Corpuscular Volume 96.8 fL (80-94); Mean Platelet Vol. 9.5 fl (6.2-12.0); Monocyte# 1.29 X10^3/uL; Monocyte% 15.2 % (0-10); NRBC Flagged by Analyzer 0 % (0-5); Neutrophil # 3.37 X10^3/uL (2.7-7.7); Neutrophil % 39.6 % (47-70); Platelet Count 189 K/mm3 (150-450); RBC Distribution Width CV 12.3 % (11.6-14.6); RBC Distribution Width SD 44.3 fl (35.1-43.9); Red Blood Count 3.16 M/mm3 (4.6-6.2); White Blood Count 8.5 K/mm3 (4.4-11.0)
[2020-05-02 07:21] LABS: Anion Gap 8 (5-15); BUN 28 mg/dL (7-18); BUN/Creat Ratio 42.8 RATIO (10-20); Calcium,Total 8.6 mg/dL (8.5-10.1); Chloride 111 mmol/L (98-107); Creatinine, Serum 0.65 mg/dL (0.70-1.30); EST Glomerular Filtration Rate 132 mL/min (>60); Est Glom Filt Rate - Afr Amer 160 mL/min (>60); Glucose 90 mg/dL (74-106); Potassium 3.7 mmol/L (3.5-5.1); Sodium Level 142 mmol/L (136-145)
[2020-05-02 07:23] VITALS: O2SAT 97
[2020-05-02 07:35] VITALS: BP 98/53; PULSE 64; RESP 18; TEMP 36.8; O2SAT 97
--- NOTE | 2020-05-02 07:37 | PCM.PN.HOSP ---
Patient Problems: Active and Suspected Problems (Last Reviewed 04/30/20 @ 15:[address] Stephen Wolfe MD) Multiple falls (Acute) Reason for Visit: Adult failure to thrive Subjective: Patient seen had a relatively uneventful night. Urine cultures were sent on admission results pending plan is for patient to be discharged to a half-way facility once urine culture result is obtained Objective: GENERAL: Patient appears frail HEENT: Atraumatic; EYES; Anicteric, Normal Conjunctiva NECK; supple, normal thyroid, RESPIRATORY: Diminished to auscultation CARDIOVASCULAR: Regular S1 S2, GI: soft, normoactive bowel sounds, : No Renal angle tenderness; EXTREMITIES: No edema, no clubbing, MUSCULOSKELETAL: Restricted in the left hip NEURO: Awake; no lateralizing signs. SKIN: No Rash PSYCH; Flat affect Vitals/I&O's: Vital Signs Temp Pulse Resp BP Pulse Ox 98.3 F 64 18 98/53 L 97 05/02/20 07:35 05/02/20 07:35 05/02/20 07:35 05/02/20 07:35 05/02/20 07:35 Oxygen Delivery Method Room Air Weight: 72.9 kg Body Mass Index (BMI) 25.2 Intake and Output for Last 24 Hours 04/30/20 05/01/20 05/02/20 23:59 23:59 23:59 Intake Total 350 / 550 2340.00 / 2340.00 Output Total 250 / 250 525 / 525 1170 / 1170 Balance 100 / 300 1815.00 / 1815.00 -1170 / -1170 Microbiology Past 72 Hours 04/30/20 11:00 Mucosa - Nose SARS-CoV-2 Antigen (Rapid) - Final Laboratory Results 05/02/20 05:55: Sodium 142, Potassium 3.7, Chloride 111 H, Carbon Dioxide 23.0, Anion Gap 8, BUN 28 H, Creatinine 0.65 L, Estim Creat Clear Calc 114.40, Est GFR (MDRD) Af Amer 160, Est GFR (MDRD) Non-Af 132, BUN/Creatinine Ratio 42.8 H, Glucose 90, Calcium 8.6 05/02/20 05:55: WBC 8.5, RBC 3.16 L, Hgb 9.7 L, Hct 30.6 L, MCV 96.8 H, MCH 30.7, MCHC 31.7 L, RDW Std Deviation 44.3 H, RDW Coeff of Colleen 12.3, Plt Count 189, MPV 9.5, Immature Gran % (Auto) 0.600, Neut % (Auto) 39.6 L, Lymph % (Auto) 41.2 H, [place] % (Auto) 15.2 H, Eos % (Auto) 2.8, Baso % (Auto) 0.6, Absolute Neuts (auto) 3.4, Absolute Lymphs (auto) 3.51, Nucleated RBC % 0 Current Medications Acetaminophen (Acetaminophen 325 Mg Tablet) 650 mg PO Q6H PRN PRN PRN Reason: Pain Score 1-10/Temp > 100.7 F Last Admin: 05/02/20 05:19 Dose: 650 mg Documented by: Al Hydroxide/Mg Hydroxide (Mag Hydrox/Al Hydrox/Simeth 30 Ml Udc) 30 ml PO Q6H PRN PRN PRN Reason: Gastric Burning Albuterol Sulfate (Albuterol 2.5 Mg/3 Ml Vial.Neb.) 2.5 mg INHALATION Q2H PRN PRN PRN Reason: Shortness of Breath/Wheezing Atorvastatin Calcium (Atorvastatin Calcium 40 Mg Tablet) 40 mg PO QHS [facility] Last Admin: 05/01/20 20:41 Dose: 40 mg Documented by: Carbidopa/Levodopa (Carbidopa/Levodopa 25/100 Tablet) 1 tablet PO TIDAC [facility] Last Admin: 05/02/20 05:19 Dose: 1 tablet Documented by: Divalproex Sodium (Divalproex (Er) 250 Mg Tablet) 500 mg PO QHS [facility] Last Admin: 05/01/20 20:41 Dose: 500 mg Documented by: Divalproex Sodium (Divalproex (Er) 250 Mg Tablet) 250 mg PO DAILYCM [facility] Last Admin: 05/01/20 09:47 Dose: 250 mg Documented by: Ergocalciferol (Ergocalciferol 50,000 Unit Capsule) 50,000 unit PO Q7D [facility] Last Admin: 04/30/20 17:57 Dose: 50,000 unit Documented by: Ceftriaxone Sodium (Rocephin) 1 gm in 50 mls @ 100 mls/hr IV Q24 [facility] Levetiracetam (Levetiracetam 1,000 Mg Tablet) 1,000 mg PO BID [facility] Last Admin: 05/01/20 20:40 Dose: 1,000 mg Documented by: Levothyroxine Sodium (Levothyroxine 50 Mcg Tablet) 50 mcg PO DAILY@0600 [facility] Last Admin: 05/02/20 05:19 Dose: 50 mcg Documented by: Melatonin (Melatonin 3 Mg Tablet) 3 mg PO QHS PRN PRN PRN Reason: INSOMNIA Mirtazapine (Mirtazapine 15 Mg Tablet) 15 mg PO DAILY@2200 [facility] Last Admin: 05/01/20 20:41 Dose: 15 mg Documented by: Nitroglycerin (Nitroglycerin (Inpatient Use) 0.4 Mg Tab.Subl) 0.4 mg SL Q5M PRN PRN Reason: CARDIAC/CHEST PAIN Nutritional Formula (Lactose Free) (Ensure Enlive 120 Ml Liquid) 120 ml PO 4X/DAY [facility] Last Admin: 05/01/20 20:41 Dose: 120 ml Documented by: Ondansetron HCl (Ondansetron 4 Mg/2 Ml Vial) 4 mg IV Q8H PRN PRN PRN Reason: NAUSEA/VOMITING Oxycodone HCl (Oxycodone 5 Mg Tablet) 5 mg PO Q4H PRN PRN PRN Reason: Pain Score 4-5 Last Admin: 05/01/20 20:41 Dose: 5 mg Documented by: Oxycodone HCl (Oxycodone 5 Mg Tablet) 10 mg PO Q4H PRN PRN PRN Reason: Pain Score 6-10 Promethazine HCl (Promethazine 25 Mg/Ml Syringe) 25 mg IM Q6H PRN PRN PRN Reason: Breakthrough nausea/vomiting Propranolol HCl (Propranolol [place] 60 Mg Capsule) 60 mg PO DAILY [facility] Last Admin: 05/01/20 09:47 Dose: 60 mg Documented by: Rivaroxaban (Rivaroxaban 20 Mg Tablet) 20 mg PO DAILY@1700 [facility] Last Admin: 05/01/20 17:14 Dose: 20 mg Documented by: Senna/Docusate Sodium (Senna/Docusate Sodium 1 Tablet) 2 tablet PO BID PRN PRN PRN Reason: Constipation Sodium Chloride (0.9% Saline Lock 10 Ml Syringe) 10 - 40 ml IV UD PRN PRN Reason: SALINE FLUSH Last Admin: 05/01/20 17:15 Dose: 10 ml Documented by: Tamsulosin HCl (Tamsulosin Hcl 0.4 Mg Capsule) 0.4 mg PO DAILY@1730 [facility] Last Admin: 05/01/20 17:14 Dose: 0.4 mg Documented by: Topiramate (Topiramate 50 Mg Tablet) 50 mg PO BID [facility] Last Admin: 05/01/20 20:41 Dose: 50 mg Documented by: STROKE Vital Signs/Narrative: Vital Signs Temp Pulse Resp BP Pulse Ox 05/02/20 07:35 98.3 F 64 18 98/53 L 97 Medical Necessity - Tobacco Use Smoking Status: Never smoker Assessment/Plan All Active Problems (Last Reviewed 04/30/20 @ 15:[address] Stephen Wolfe MD) Blood transfusion without reported diagnosis (Resolved) Nondisplaced fracture of neck of left femur (Resolved) Multiple falls (Acute) Compression fx, thoracic spine (Resolved) Femur fracture, left (Resolved) Tachycardia (Resolved) Patient is a 59-year-old male admitted for generalized weakness as well as left hip pain 1. Failure to thrive ?Admitted to regular nursing floor requested for PT OT eval and child protective services social worker to assist with discharge planning -05/02/2020; Patient seen had a relatively uneventful night. Urine cultures were sent on admission results pending plan is for patient to be discharged to a half-way facility once urine culture result is obtained 2. Left hip pain Patient has history of left femoral neck hip fracture status post ORIF in 2018 presented with syncopal left hip pain initial imaging studies unremarkable ordered CT of the hip for subsequent evaluation 3. Seizure disorder ?Discontinue patient antiseizure medications 4. Hypothyroidism - Patient is on levothyroxine home dose continued 5. Parkinson's disease - on Sinemet 6. Dyslipidemia - on atorvastatin 7. BPH on Flomax 8. History of DVT - on Xarelto 9. Acute cystitis ?Started on Rocephin urine culture sent Inpatient E&M: 53113 Subs Hosp L2
[2020-05-02] MEDS: Topiramate 50 MG Tablet PO ×2 (09:32→22:12)
[2020-05-02] MEDS: 0.9% Saline Lock 10 ML Syringe IV (09:32)
[2020-05-02] MEDS: Propranolol LA 60 MG Capsule PO (09:33)
[2020-05-02] MEDS: levETIRAcetam 1,000 MG Tablet 1000 MG PO ×2 (09:33→22:12)
[2020-05-02] MEDS: Ceftriaxone 1 GM/50 ML BAG IV (09:33)
[2020-05-02] MEDS: Divalproex (ER) 250 MG Tablet PO (09:33)
--- NOTE | 2020-05-02 09:33 | CASEMGMT ---
Addendum entered by Christiane Lemus 05/02/20 15:05: GIORGI updated that pt is now not discharging today. GIORGI placed a call to Brittnee at [facility] and updated her. Plan: [facility] skilled once medically cleared Original Note: Social Work Note SW received call from Brittnee at [facility]. GIORGI updated Brittnee that pt should still be medically ready for discharge today. Brittnee states she will need results from Urine Culture as this is what pt is getting skilled on. Brittnee states pt's failure to thrive and debility is not enough to get music adapter on. GIORGI will fax results from Urine Culture when available. Plan: [facility] skilled today Christiane Lemus AEROBICS INSTRUCTOR, SIGNAL TOWER OPERATOR
[2020-05-02 13:30] VITALS: BP 82/67; PULSE 78; RESP 18; TEMP 37.1; O2SAT 97
--- NOTE | 2020-05-02 14:43 | NURSING ---
PT UP IN RECLINER @ BS, DROWSY. bp 82/ - CORTEXT TO DR HART.
[2020-05-02 15:45] VITALS: BP 94/61; PULSE 74; RESP 16; TEMP 36.8; O2SAT 100
[2020-05-02] MEDS: Rivaroxaban 20 MG Tablet PO (16:51)
[2020-05-02] MEDS: Tamsulosin HCl 0.4 MG Capsule PO (16:51)
[2020-05-02 22:03] VITALS: BP 102/49; PULSE 67; RESP 18; TEMP 36.8; O2SAT 98
[2020-05-02] MEDS: Mirtazapine 15 MG Tablet PO (22:12)
[2020-05-02] MEDS: Divalproex (ER) 250 MG Tablet 500 MG PO (22:12)
[2020-05-02] MEDS: Atorvastatin Calcium 40 MG Tablet PO (22:12)
[2020-05-03 03:39] VITALS: BP 84/56; PULSE 71; RESP 18; TEMP 37; O2SAT 96
[2020-05-03 03:56] VITALS: BP 87/57
[2020-05-03 05:45] VITALS: BP 88/55; PULSE 68; RESP 18; TEMP 37.2; O2SAT 98
[2020-05-03] MEDS: Carbidopa/Levodopa 25/100 Tablet PO ×2 (06:02→12:14)
[2020-05-03] MEDS: Levothyroxine 50 MCG Tablet PO (06:02)
[2020-05-03 07:15] LABS: Absolute Neutrophil Count 4.7 X10^3/uL (2.0-7.7); Basophil# 0.06 X10^3/uL; Basophil% 0.6 % (0-1); Eosinophil# 0.35 X10^3/uL; Eosinophils% 3.7 % (0-5); Hematocrit 31.7 % (40-54); Hemoglobin 10.3 g/dL (13.0-16.5); Lymphocyte % 29.9 % (19-41); Mean Corp Hgb Conc 32.5 g/dL (32-36); Mean Corpuscular Hgb 31.7 pg (27.0-32.0); Mean Corpuscular Volume 97.5 fL (80-94); Mean Platelet Vol. 9.5 fl (6.2-12.0); Monocyte# 1.37 X10^3/uL; Monocyte% 14.7 % (0-10); NRBC Flagged by Analyzer 0 % (0-5); Neutrophil % 50.4 % (47-70); Platelet Count 214 K/mm3 (150-450); RBC Distribution Width CV 12.1 % (11.6-14.6); Red Blood Count 3.25 M/mm3 (4.6-6.2); White Blood Count 9.4 K/mm3 (4.4-11.0)
[2020-05-03 07:25] VITALS: O2SAT 95
[2020-05-03 07:36] LABS: Anion Gap 7 (5-15); BUN 28 mg/dL (7-18); Calcium,Total 8.7 mg/dL (8.5-10.1); Chloride 111 mmol/L (98-107); Creatinine, Serum 0.76 mg/dL (0.70-1.30); EST Glomerular Filtration Rate 112 mL/min (>60); Est Glom Filt Rate - Afr Amer 136 mL/min (>60); Estimated Creatinine Clearance 97.85 ml/min; Glucose 91 mg/dL (74-106); Potassium 3.9 mmol/L (3.5-5.1); Sodium Level 142 mmol/L (136-145)
[2020-05-03 08:00] VITALS: BP 101/72; PULSE 77; RESP 16; TEMP 37.1; O2SAT 97
[2020-05-03] MEDS: levETIRAcetam 1,000 MG Tablet 1000 MG PO (08:15)
[2020-05-03] MEDS: Topiramate 50 MG Tablet PO (08:15)
[2020-05-03] MEDS: Divalproex (ER) 250 MG Tablet PO (08:19)
--- NOTE | 2020-05-03 08:21 | PN_ITS ---
Patient Problems: Active and Suspected Problems (Last Reviewed 04/30/20 @ 15:[address] Stephen Wolfe MD) Multiple falls (Acute) Reason for Visit: Adult failure to thrive Subjective: Patient did develop episode of hypotension resuscitated with IV fluid. Was on propranolol this was held. Final urine cultures positive for staph epi with no significant colony count antibiotic subsequently discontinued Objective: GENERAL: Patient appears frail HEENT: Atraumatic; EYES; Anicteric, Normal Conjunctiva NECK; supple, normal thyroid, RESPIRATORY: Diminished to auscultation CARDIOVASCULAR: Regular S1 S2, GI: soft, normoactive bowel sounds, : No Renal angle tenderness; EXTREMITIES: No edema, no clubbing, MUSCULOSKELETAL: Restricted in the left hip NEURO: Awake; no lateralizing signs. SKIN: No Rash PSYCH; Flat affect Vitals/I&O's: Vital Signs Temp Pulse Resp BP Pulse Ox 99 F 68 18 88/55 L 95 05/03/20 05:45 05/03/20 05:45 05/03/20 05:45 05/03/20 05:45 05/03/20 07:25 Oxygen Delivery Method Room Air Weight: 72.9 kg Body Mass Index (BMI) 25.2 Intake and Output for Last 24 Hours 05/01/20 05/02/20 05/03/20 23:59 23:59 23:59 Intake Total 2340.00 / 2340.00 2150 / 2150 240 / 240 Output Total 525 / 525 1920 / 1920 Balance 1815.00 / 1815.00 230 / 230 240 / 240 Microbiology Past 72 Hours 04/30/20 02:30 Urine, Clean Catch Urine Culture - Final Staphylococcus epidermidis 04/30/20 11:00 Mucosa - Nose SARS-CoV-2 Antigen (Rapid) - Final Laboratory Results 05/03/20 06:36: Sodium 142, Potassium 3.9, Chloride 111 H, Carbon Dioxide 24.0, Anion Gap 7, BUN 28 H, Creatinine 0.76, Estim Creat Clear Calc 97.85, Est GFR (MDRD) Af Amer 136, Est GFR (MDRD) Non-Af 112, BUN/Creatinine Ratio 37.0 H, Glucose 91, Calcium 8.7 05/03/20 06:36: WBC 9.4, RBC 3.25 L, Hgb 10.3 L, Hct 31.7 L, MCV 97.5 H, MCH 31.7, MCHC 32.5, RDW Std Deviation 43.0, RDW Coeff of Colleen 12.1, Plt Count 214, MPV 9.5, Immature Gran % (Auto) 0.700, Neut % (Auto) 50.4, Lymph % (Auto) 29.9, [place] % (Auto) 14.7 H, Eos % (Auto) 3.7, Baso % (Auto) 0.6, Absolute Neuts (auto) 4.7, Absolute Lymphs (auto) 2.80, Nucleated RBC % 0 Current Medications Acetaminophen (Acetaminophen 325 Mg Tablet) 650 mg PO Q6H PRN PRN PRN Reason: Pain Score 1-10/Temp > 100.7 F Last Admin: 05/02/20 12:22 Dose: 650 mg Documented by: Al Hydroxide/Mg Hydroxide (Mag Hydrox/Al Hydrox/Simeth 30 Ml Udc) 30 ml PO Q6H PRN PRN PRN Reason: Gastric Burning Albuterol Sulfate (Albuterol 2.5 Mg/3 Ml Vial.Neb.) 2.5 mg INHALATION Q2H PRN PRN PRN Reason: Shortness of Breath/Wheezing Atorvastatin Calcium (Atorvastatin Calcium 40 Mg Tablet) 40 mg PO QHS [facility] Last Admin: 05/02/20 22:12 Dose: 40 mg Documented by: Carbidopa/Levodopa (Carbidopa/Levodopa 25/100 Tablet) 1 tablet PO TIDAC [facility] Last Admin: 05/03/20 06:02 Dose: 1 tablet Documented by: Divalproex Sodium (Divalproex (Er) 250 Mg Tablet) 500 mg PO QHS [facility] Last Admin: 05/02/20 22:12 Dose: 500 mg Documented by: Divalproex Sodium (Divalproex (Er) 250 Mg Tablet) 250 mg PO DAILYCM [facility] Last Admin: 05/02/20 09:33 Dose: 250 mg Documented by: Ergocalciferol (Ergocalciferol 50,000 Unit Capsule) 50,000 unit PO Q7D [facility] Last Admin: 04/30/20 17:57 Dose: 50,000 unit Documented by: Ceftriaxone Sodium (Rocephin) 1 gm in 50 mls @ 100 mls/hr IV Q24 [facility] Last Infusion: 05/02/20 10:03 Dose: Infused Documented by: Levetiracetam (Levetiracetam 1,000 Mg Tablet) 1,000 mg PO BID [facility] Last Admin: 05/02/20 22:12 Dose: 1,000 mg Documented by: Levothyroxine Sodium (Levothyroxine 50 Mcg Tablet) 50 mcg PO DAILY@0600 [facility] Last Admin: 05/03/20 06:02 Dose: 50 mcg Documented by: Melatonin (Melatonin 3 Mg Tablet) 3 mg PO QHS PRN PRN PRN Reason: INSOMNIA Mirtazapine (Mirtazapine 15 Mg Tablet) 15 mg PO DAILY@2200 [facility] Last Admin: 05/02/20 22:12 Dose: 15 mg Documented by: Nutritional Formula (Lactose Free) (Ensure Enlive 120 Ml Liquid) 120 ml PO 4X/DAY [facility] Last Admin: 05/02/20 22:12 Dose: 120 ml Documented by: Ondansetron HCl (Ondansetron 4 Mg/2 Ml Vial) 4 mg IV Q8H PRN PRN PRN Reason: NAUSEA/VOMITING Oxycodone HCl (Oxycodone 5 Mg Tablet) 5 mg PO Q4H PRN PRN PRN Reason: Pain Score 4-5 Last Admin: 05/01/20 20:41 Dose: 5 mg Documented by: Promethazine HCl (Promethazine 25 Mg/Ml Syringe) 25 mg IM Q6H PRN PRN PRN Reason: Breakthrough nausea/vomiting Rivaroxaban (Rivaroxaban 20 Mg Tablet) 20 mg PO DAILY@1700 [facility] Last Admin: 05/02/20 16:51 Dose: 20 mg Documented by: Senna/Docusate Sodium (Senna/Docusate Sodium 1 Tablet) 2 tablet PO BID PRN PRN PRN Reason: Constipation Sodium Chloride (0.9% Saline Lock 10 Ml Syringe) 10 - 40 ml IV UD PRN PRN Reason: SALINE FLUSH Last Admin: 05/02/20 09:32 Dose: 10 ml Documented by: Tamsulosin HCl (Tamsulosin Hcl 0.4 Mg Capsule) 0.4 mg PO DAILY@1730 [facility] Last Admin: 05/02/20 16:51 Dose: 0.4 mg Documented by: Topiramate (Topiramate 50 Mg Tablet) 50 mg PO BID [facility] Last Admin: 05/02/20 22:12 Dose: 50 mg Documented by: STROKE Vital Signs/Narrative: Vital Signs Temp Pulse Resp BP Pulse Ox 05/03/20 07:25 95 05/03/20 05:45 99 F 68 18 88/55 L 98 Medical Necessity - Tobacco Use Smoking Status: Never smoker Assessment/Plan All Active Problems (Last Reviewed 04/30/20 @ 15:[address] Stephen Wolfe MD) Blood transfusion without reported diagnosis (Resolved) Nondisplaced fracture of neck of left femur (Resolved) Multiple falls (Acute) Compression fx, thoracic spine (Resolved) Femur fracture, left (Resolved) Tachycardia (Resolved) Patient is a 59-year-old male admitted for generalized weakness as well as left hip pain 1. Failure to thrive ?Admitted to regular nursing floor requested for PT OT eval and social sciences professor to assist with discharge planning -05/02/2020; Patient seen had a relatively uneventful night. Urine cultures were sent on admission results pending plan is for patient to be discharged to a long term facility once urine culture result is obtained 2. Left hip pain Patient has history of left femoral neck hip fracture status post ORIF in 2018 presented with syncopal left hip pain initial imaging studies unremarkable ordered CT of the hip for subsequent evaluation 3. Seizure disorder ?Discontinue patient antiseizure medications 4. Hypothyroidism - Patient is on levothyroxine home dose continued 5. Parkinson's disease - on Sinemet 6. Dyslipidemia - on atorvastatin 7. BPH on Flomax 8. History of DVT - on Xarelto 9. Acute cystitis ?Started on Rocephin urine culture sent -Urine cultures grew staph epi with low colony counts antibiotics subsequently discontinued Inpatient E&M: 18474 Subs Hosp L2
[2020-05-03] MEDS: Ceftriaxone 1 GM/50 ML BAG IV (08:31)
--- NOTE | 2020-05-03 10:44 | PCM.TXEXTCAR ---
- Diet 05/01/20 11:44 Diet: Cardiac - Heart Healthy Food consistency:: Regular Liquid Consistency:: Regular/Thin Is pt able to select menu?: No - Routine Orders/Code Status Code Status: Full Code - Wound(s) LEFT HAND Wound Type: Abrasion - Therapies Physical Therapy: Eval and Treat Occupational Therapy: Eval and Treat - Problem/Diagnosis (1) Blood transfusion without reported diagnosis Status: Resolved (2) Nondisplaced fracture of neck of left femur Status: Resolved (3) Multiple falls Status: Acute (4) Compression fx, thoracic spine Status: Resolved (5) Hypercoagulable state Status: Chronic (6) Deep vein thrombosis (DVT) of left lower extremity Status: Chronic (7) Blood clotting disorder Status: Chronic Comment: Increased factor VIII activity and high Von Willebrand (8) Femur fracture, left Status: Resolved (9) Hypothyroidism Status: Chronic (10) Tachycardia Status: Resolved Comment: chest CT on 12/12/17 neg for PE but it was done day of leg fx in ER, looking for rib fx (11) S/P hip replacement Status: Chronic (12) Seizure disorder Status: Chronic (13) Parkinson disease Status: Chronic (14) BPH (benign prostatic hyperplasia) Status: Chronic - Allergies/Procedures Done in Hospital Allergies/Adverse Reactions: Allergies No Known Allergies Allergy (Verified 02/27/20 15:41) - Type of Care/Length of Stay Estimated LOS: Convalescent Care Less Than 30 days Type of Care Needed: Skilled Rehab Potential: Good Prognosis: Good - Additional Orders/Day of Discharge Day of Discharge: 05/03/20 - Dietary and Speech Recommendations Dietitian Recommendations/Changes: Will change diet to Cardiac and continue ensure enlive w/ medpass as ordered. D/C ensure enlive when intake ~75-100% consistently at meals. - Follow Up Care Primary Care Physician: Harmony William MD [Primary Care Provider] -
--- NOTE | 2020-05-03 10:47 | PCM.DC.SUM ---
Discharge Date and Diagnosis - Problem List Patient Problems: Active and Suspected Problems (Last Reviewed 04/30/20 @ 15:[address] Stephen Wolfe MD) Multiple falls (Acute) Date of Admission: 04/30/20 Date of Discharge: 05/03/20 - Primary Discharge Diagnosis Acute Problems: Active Problems (Last Reviewed 04/30/20 @ 15:[address] Stephen Wolfe MD) Multiple falls (Acute) - Secondary Discharge Diagnosis Chronic Problems: Chronic Problems (Last Reviewed 04/30/20 @ 15:[address] Stephen Wolfe MD) Hypercoagulable state (Chronic) Deep vein thrombosis (DVT) of left lower extremity (Chronic) Blood clotting disorder (Chronic) Increased factor VIII activity and high Von Willebrand Hypothyroidism (Chronic) S/P hip replacement (Chronic) Seizure disorder (Chronic) Parkinson disease (Chronic) BPH (benign prostatic hyperplasia) (Chronic) Hospital Course and Treatment Imaging Results: Clinical Impression(s) from Imaging Studies Chest X-Ray 04/30/20 10:50 IMPRESSION: Stable cardiomegaly with hyperexpansion and left upper lobe scarring. No acute finding. Electronically Signed: Rudi Richardson MD at 11:24 EST , Service support , Femur X-Ray 04/30/20 10:50 IMPRESSION: Left femur intact Uncomplicated left hip arthroplasty Mild soft tissue swelling Electronically Signed: Luis Fernando Mcdonald DO at 11:15 EST Tel , Service support , Pelvis X-Ray 04/30/20 10:50 IMPRESSION: Stable pelvis and proximal femurs with no acute abnormality identified. Electronically Signed: Rudi Richardson MD at 11:26 EST , Service support , Operations: total hip replacement Summary of Care Provided: Patient is a 59-year-old male admitted for generalized weakness as well as left hip pain 1. Failure to thrive ?Admitted to regular nursing floor requested for PT OT eval and case management social worker to assist with discharge planning 2. Left hip pain Patient has history of left femoral neck hip fracture status post ORIF in 2018 presented with syncopal left hip pain initial imaging studies unremarkable ordered CT of the hip for subsequent evaluation 3. Seizure disorder ?Discontinue patient antiseizure medications 4. Hypothyroidism - Patient is on levothyroxine home dose continued 5. Parkinson's disease - on Sinemet 6. Dyslipidemia - on atorvastatin 7. BPH on Flomax 8. History of DVT - on Xarelto 9. Acute cystitis ?Started on Rocephin urine culture sent -Urine cultures grew staph epi with low colony counts antibiotics subsequently discontinued Patient Problems: Active and Suspected Problems (Last Reviewed 04/30/20 @ 15:[address] Stephen Wolfe MD) Multiple falls (Acute) - Physical Exam Vitals/I&O's: Vital Signs Temp Pulse Resp BP Pulse Ox 98.7 F 77 16 101/72 97 05/03/20 08:00 05/03/20 08:00 05/03/20 08:00 05/03/20 08:00 05/03/20 08:00 Oxygen Delivery Method Room Air Weight: 72.9 kg Body Mass Index (BMI) 25.2 Intake and Output for Last 24 Hours 05/01/20 05/02/20 05/03/20 23:59 23:59 23:59 Intake Total 2340.00 / 2340.00 2150 / 2150 240 / 240 Output Total 525 / 525 1920 / 1920 Balance 1815.00 / 1815.00 230 / 230 240 / 240 General: Alert Oral: Moist Mucosa Neck: Supple Psych/Mental Status: Flat Affect Microbiology Past 72 Hours 04/30/20 02:30 Urine, Clean Catch Urine Culture - Final Staphylococcus epidermidis 04/30/20 11:00 Mucosa - Nose SARS-CoV-2 Antigen (Rapid) - Final Laboratory Results 05/03/20 06:36: Sodium 142, Potassium 3.9, Chloride 111 H, Carbon Dioxide 24.0, Anion Gap 7, BUN 28 H, Creatinine 0.76, Estim Creat Clear Calc 97.85, Est GFR (MDRD) Af Amer 136, Est GFR (MDRD) Non-Af 112, BUN/Creatinine Ratio 37.0 H, Glucose 91, Calcium 8.7 05/03/20 06:36: WBC 9.4, RBC 3.25 L, Hgb 10.3 L, Hct 31.7 L, MCV 97.5 H, MCH 31.7, MCHC 32.5, RDW Std Deviation 43.0, RDW Coeff of Colleen 12.1, Plt Count 214, MPV 9.5, Immature Gran % (Auto) 0.700, Neut % (Auto) 50.4, Lymph % (Auto) 29.9, Gray % (Auto) 14.7 H, Eos % (Auto) 3.7, Baso % (Auto) 0.6, Absolute Neuts (auto) 4.7, Absolute Lymphs (auto) 2.80, Nucleated RBC % 0 Current Medications Acetaminophen (Acetaminophen 325 Mg Tablet) 650 mg PO Q6H PRN PRN PRN Reason: Pain Score 1-10/Temp > 100.7 F Last Admin: 05/02/20 12:22 Dose: 650 mg Documented by: Al Hydroxide/Mg Hydroxide (Mag Hydrox/Al Hydrox/Simeth 30 Ml Udc) 30 ml PO Q6H PRN PRN PRN Reason: Gastric Burning Albuterol Sulfate (Albuterol 2.5 Mg/3 Ml Vial.Neb.) 2.5 mg INHALATION Q2H PRN PRN PRN Reason: Shortness of Breath/Wheezing Atorvastatin Calcium (Atorvastatin Calcium 40 Mg Tablet) 40 mg PO QHS [facility] Last Admin: 05/02/20 22:12 Dose: 40 mg Documented by: Carbidopa/Levodopa (Carbidopa/Levodopa 25/100 Tablet) 1 tablet PO TIDAC [facility] Last Admin: 05/03/20 06:02 Dose: 1 tablet Documented by: Divalproex Sodium (Divalproex (Er) 250 Mg Tablet) 500 mg PO QHS [facility] Last Admin: 05/02/20 22:12 Dose: 500 mg Documented by: Divalproex Sodium (Divalproex (Er) 250 Mg Tablet) 250 mg PO DAILYCM [facility] Last Admin: 05/03/20 08:19 Dose: 250 mg Documented by: Ergocalciferol (Ergocalciferol 50,000 Unit Capsule) 50,000 unit PO Q7D [facility] Last Admin: 04/30/20 17:57 Dose: 50,000 unit Documented by: Ceftriaxone Sodium (Rocephin) 1 gm in 50 mls @ 100 mls/hr IV Q24 [facility] Last Admin: 05/03/20 08:31 Dose: 100 mls/hr Documented by: Levetiracetam (Levetiracetam 1,000 Mg Tablet) 1,000 mg PO BID [facility] Last Admin: 05/03/20 08:15 Dose: 1,000 mg Documented by: Levothyroxine Sodium (Levothyroxine 50 Mcg Tablet) 50 mcg PO DAILY@0600 [facility] Last Admin: 05/03/20 06:02 Dose: 50 mcg Documented by: Melatonin (Melatonin 3 Mg Tablet) 3 mg PO QHS PRN PRN PRN Reason: INSOMNIA Mirtazapine (Mirtazapine 15 Mg Tablet) 15 mg PO DAILY@2200 [facility] Last Admin: 05/02/20 22:12 Dose: 15 mg Documented by: Nutritional Formula (Lactose Free) (Ensure Enlive 120 Ml Liquid) 120 ml PO 4X/DAY [facility] Last Admin: 05/03/20 08:13 Dose: 120 ml Documented by: Ondansetron HCl (Ondansetron 4 Mg/2 Ml Vial) 4 mg IV Q8H PRN PRN PRN Reason: NAUSEA/VOMITING Oxycodone HCl (Oxycodone 5 Mg Tablet) 5 mg PO Q4H PRN PRN PRN Reason: Pain Score 4-5 Last Admin: 05/01/20 20:41 Dose: 5 mg Documented by: Promethazine HCl (Promethazine 25 Mg/Ml Syringe) 25 mg IM Q6H PRN PRN PRN Reason: Breakthrough nausea/vomiting Rivaroxaban (Rivaroxaban 20 Mg Tablet) 20 mg PO DAILY@1700 [facility] Last Admin: 05/02/20 16:51 Dose: 20 mg Documented by: Senna/Docusate Sodium (Senna/Docusate Sodium 1 Tablet) 2 tablet PO BID PRN PRN PRN Reason: Constipation Sodium Chloride (0.9% Saline Lock 10 Ml Syringe) 10 - 40 ml IV UD PRN PRN Reason: SALINE FLUSH Last Admin: 05/02/20 09:32 Dose: 10 ml Documented by: Tamsulosin HCl (Tamsulosin Hcl 0.4 Mg Capsule) 0.4 mg PO DAILY@1730 [facility] Last Admin: 05/02/20 16:51 Dose: 0.4 mg Documented by: Topiramate (Topiramate 50 Mg Tablet) 50 mg PO BID [facility] Last Admin: 05/03/20 08:15 Dose: 50 mg Documented by: Discharge Diet: No Restrictions Home Medications: Medications to take at Discharge atorvastatin 40 mg tablet 40 mg PO QHS #90 tab 05/03/19 tamsulosin 0.4 mg capsule 0.4 mg PO DAILY #90 cap 05/03/19 ergocalciferol (vitamin D2) 1,250 mcg (50,000 unit) capsule 50,000 unit PO Q7D #10 cap 12/27/19 mirtazapine 30 mg tablet 15 mg PO DAILY #90 tab 02/27/20 Propranolol HCl 60 mg PO DAILY 04/24/20 Topiramate [Topamax] 1 tab PO BID 04/24/20 Carbidopa/Levodopa 25/100 [Sinemet 25/100] 1 tab PO TID 04/30/20 Divalproex Sodium [Depakote] 250 mg PO DAILY 04/30/20 Divalproex Sodium [Divalproex Sodium ER] 2 tab PO QHS 04/30/20 Levetiracetam 1,000 mg PO BID 04/30/20 Levothyroxine Sodium [Synthroid] 50 mcg PO DAILY 04/30/20 Rivaroxaban [Xarelto] 20 mg PO DAILY 04/30/20 Acetaminophen [Tylenol Tablet] 650 mg PO Q6H PRN PRN tab 05/03/20 Mag Hydrox/Al Hydrox/Simeth [Mylanta II] 30 ml PO Q6H PRN PRN udc 05/03/20 Melatonin 3 mg PO QHS PRN PRN tab 05/03/20 Senna/Docusate Sodium [Senokot-S] 2 tab PO BID PRN PRN tab 05/03/20 Primary Care Physician: Harmony William MD [Primary Care Provider] - Disposition: [facility] facility Minutes spent on discharge:: 45 Patient Condition:: Stable Medical Necessity - Tobacco Use Smoking Status: Never smoker Meaningful Use Info Meaningful Use Diagnoses (Choose all that apply): None applicable Inpatient E&M: 59155 Disch Hosp
--- NOTE | 2020-05-03 12:00 | CASEMGMT ---
Social Work Note Pt is able to discharge to [facility] today. GIORGI faxed completed discharge paperwork to [facility] including transfer to extended care facility, signed medication list, any scripts, and COVID screening tool. Original in SNF folder and copy on pt's chart. GIORGI completed [facility] in [facility]. Original in SNF folder and copy on pt's chart. GIORGI spoke with RN, pt can transport via wheelchair van. GIORGI accessed trip assist and arranged transportation via wheelchair van at 1:30pm. Transportation form completed and placed on SNF folder and copy on pt's chart. RN updated on transportation time. SW in to speak with pt. SW updated pt on discharge and transportation time. Pt states understanding, gave this worker permission to call his caregiver Natalie to update her. SW asked pt about pt's HCPOA as he has listed Mary Hernandez as Caregiver but Natalie Hernandez is listed as Caregiver now. Pt states they are the same person and Natalie's full name is Natalie Hernandez. GIORGI placed a call to Natalie Hernandez and updated her on discharge and transportation time. GIORGI placed a call to Brittnee at [facility] and updated her on discharge and transportation time. Plan: [facility] skilled today with Physician's transporting pt via wheelchair van at 1:30pm REINALDO Bowman
[2020-05-03 13:22] VITALS: BP 98/71; PULSE 88; RESP 16; TEMP 36.8; O2SAT 98
[2020-05-03] MEDS: Acetaminophen 325 MG Tablet 650 MG PO (13:30)
--- NOTE | 2020-05-03 13:46 | NURSING ---
Report given to Aidee at [facility] at this time.
== END 2020-05-03 13:52 | disposition skilled nursing facility (03) | DRG 641 ==
LOC: ED 11:20 → MS3 05-01 06:16
PROVIDERS: Admitting Provider Internal Medicine; Emergency Provider Emergency Medicine; PCP Internal Medicine; Visit Provider Internal Medicine
DX: R62.7 Adult failure to thrive (principal); I47.2 Ventricular tachycardia; D68.0 Von Willebrand disease; N30.00 Acute cystitis without hematuria; M25.552 Pain in left hip; R29.6 Repeated falls; I11.9 Hypertensive heart disease without heart failure; I95.9 Hypotension, unspecified; Z20.822 Contact with and (suspected) exposure to COVID-19; G40.909 Epilepsy, unspecified, not intractable, without status epilepticus; G20 Parkinson's disease; E03.9 Hypothyroidism, unspecified; E78.5 Hyperlipidemia, unspecified; N40.0 Benign prostatic hyperplasia without lower urinary tract symptoms; M85.80 Other specified disorders of bone density and structure, unspecified site; Z79.01 Long term (current) use of anticoagulants; Z79.890 Hormone replacement therapy; Z79.899 Other long term (current) drug therapy; Z86.718 Personal history of other venous thrombosis and embolism; Z96.643 Presence of artificial hip joint, bilateral
CPT/HCPCS: 36415; 71045; 72170; 73552; 80048; 80053; 80076; 81001; 82550; 83735; 84100; 84484; 85025; 87077; 87086; 87088; 87186; 87426; 93005; 97162; 97166; 97530; 97535; 97802; 99284; J7030; J7040; A4216; J2405

== ENCOUNTER 2020-12-28 21:45 | Observation (INO) | payer MEDICARE, MEDICAID, SELFPAY ==
[2020-12-28 21:46] VITALS: BP 139/84; PULSE 95; RESP 25; TEMP 36.7; O2SAT 95; BMI 24.6
--- NOTE | 2020-12-28 22:16 | EKG12_ITS ---
Test Reason : DYSRHYTHMIA Blood Pressure : / mmHG Vent. Rate : 089 BPM Atrial Rate : 089 BPM P-R Int : 120 ms QRS Dur : 094 ms QT Int : 378 ms P-R-T Axes : 061 124 066 degrees QTc Int : 459 ms Normal sinus rhythm Possible Right ventricular hypertrophy Abnormal ECG Confirmed by CHANDLER LEAVITT, MARYAN ([id number]), associate entertainment editor JANA SHORT ([id number]) on 12/30/2020 10:36:27 AM Referred By: MARILU Confirmed By:MARYAN ARTEAGA MD
--- NOTE | 2020-12-28 22:17 | EDS_ITS ---
HPI History of Present Illness Chief Complaint: Weakness Narrative Narrative: Patient with Parkinson's present with 3 days of nonproductive cough generalized weakness now to the point of not being able to stand, walk, get out of bed. To the point where he is urinating himself in bed. But it is not foul- smelling or bloody. He is unable to care for himself and component technician is having trouble caring for him as a result of all of this. No fevers or chills. No exposure to Covid that he knows of. He was vaccinated prior. No discomfort with urinating. No pain in his chest, abdomen, head, no myalgias. No loss of taste or smell. Tremor indifferent. No dyspnea, nausea, vomiting. Complained of some pain in his left leg earlier, he points to his medial distal left thigh. [facility] Medical History Blood clotting disorder Blood transfusion without reported diagnosis BPH (benign prostatic hyperplasia) Deep vein thrombosis (DVT) of left lower extremity Failure to thrive Femur fracture, left HLD (hyperlipidemia) Hypertension Hypothyroidism Parkinson disease Seizure disorder Tachycardia Home Medications topiramate 1 tab PO BID 04/24/20 [History Last Taken Unknown] melatonin 3 mg PO QHS PRN PRN tab 05/03/20 [Rx Last Taken Unknown] sennosides-docusate sodium 2 tab PO BID PRN PRN tab 05/03/20 [Rx Last Taken Unknown] atorvastatin 40 mg tablet 40 mg PO QHS #90 tab 05/10/20 [Rx Last Taken Unknown] tamsulosin 0.4 mg capsule 0.4 mg PO DAILY #90 cap 05/10/20 [Rx Last Taken Unknown] divalproex 250 mg tablet,extended release 24 hr See Rx Instructions .ROUTE .COMPLEX #90 tab 07/04/20 [Rx Last Taken Unknown] levetiracetam 1,000 mg tablet 1,000 mg PO BID #60 tab 07/04/20 [Rx Last Taken Unknown] ergocalciferol (vitamin D2) 1,250 mcg (50,000 unit) capsule 50,000 unit PO Q7D #10 cap 10/25/20 [Rx Last Taken Unknown] levothyroxine 50 mcg tablet 50 mcg PO DAILY #90 tab 10/25/20 [Rx Last Taken Unknown] mirtazapine 30 mg tablet 15 mg PO DAILY #90 tab 10/25/20 [Rx Last Taken Unknown] rivaroxaban 20 mg tablet 20 mg PO DAILY #90 tab 10/25/20 [Rx Last Taken Unknown] propranolol 60 mg capsule,24 hr,extended release 60 mg PO DAILY #90 cap 10/29/20 [Rx Last Taken Unknown] Allergy/AdvReac Type Severity Reaction Status Date / Time No Known Allergies Allergy Verified 12/28/20 21:51 Family History Mother Breast cancer Father Mouth cancer Surgical History History of left hip replacement History of orthopedic surgery S/P hip replacement Social History Smoking Status: Never smoker Smokeless tobacco user: chewing tobacco alcohol intake: never substance use type: does not use what type of physical activity do you participate in: none ROS ROS ED Constitutional Constitutional ED: Reports malaise and weakness; Denies body ache(s), chills or fever(s) Eyes Eyes: Denies change in vision or diplopia ENT ENT ED: Denies nasal congestion, rhinorrhea or sore throat Cardiovascular Cardiovascular: Denies chest pain or palpitations Respiratory/Chest Respiratory/Chest: Reports cough; Denies dyspnea Gastrointestinal Gastrointestinal: Denies abdominal pain, diarrhea, nausea or vomiting Genitourinary Genitourinary ED: Denies dysuria or hematuria Musculoskeletal Musculoskeletal: Reports as per HPI and extremity pain; Denies back pain or neck pain Integumentary Denies abscess or rash Neurologic Neurologic: Denies headache(s), paresthesias or weakness Psychiatric Psychiatric: Denies anxiety or suicidal thoughts EXAM Physical Exam Const Vital Signs: 12/28/20 21:46 Temperature 98.0 F Temperature Source Temporal Pulse Rate 95 Respiratory Rate 25 H Blood Pressure 139/84 H Blood Pressure Mean 102 Pulse Ox 95 Oxygen Delivery Method Room Air Positive well nourished and well developed General Appearance ED: well developed and NAD HEENT Reports moist mucous membranes normocephalic and atraumatic Eyes PERRL and EOMs intact bilaterally Neck full ROM, no lymphadenopathy and supple Resp normal respiratory effort and clear to auscultation bilaterally Cardio regular rate, regular rhythm, no murmurs and no JVD Rate: Negative for tachycardic GI non-tender and non-distended Auscultation: normoactive bowel sounds Palpation: soft Back/Spine no CVA tenderness General Back: other FROM Extremity normal to inspection Extremity Narrative: Mildly tender medial aspect of left distal thigh, normal on inspection, all compartments soft and nondistended, full range of motion throughout all the joints without any discomfort there, no palpable cords or masses or anything else abnormal there. Tenderness is in distal aspect of the semitendinosus/semimembranosus. General Extremety ED: Negative for edema, pulses abnormal or tenderness General Extremity: Negative for edema or pulses abnormal Neuro oriented x3, CN's II-XII intact bilaterally, no focal motor deficits and no sensory deficits noted Neuro Narrative: Resting tremor mostly in hands Sensorium / Orientation: awake and alert Motor Exam: strength 5/5 throughout Skin no rashes or lesions noted and no wounds MDM MDM MDM Narrative Medical decision making narrative: Patient's Covid returned positive. He is not hypoxic, there is no evidence of Covid pneumonia. His labs show mild prerenal azotemia but otherwise they are normal, his urinalysis does not show acute infection. The patient is doing well clinically. The component technician states they are having trouble caring for him at home, and that they are looking for placement. He was in a nursing before, and he is difficult to care for right now for her. Asking for admission for this reason. Lab Data Attestation: I reviewed the patient's lab results. Labs: Laboratory Results - last 24 hr 12/28/20 12/28/20 12/28/20 22:00 22:00 22:05 WBC 6.0 RBC 4.64 Hgb 14.4 Hct 44.6 MCV 96.1 H MCH 31.0 MCHC 32.3 RDW Std Deviation 46.6 H RDW Coeff of Colleen 13.0 Plt Count 66 L MPV 10.2 Immature Gran % (Auto) 0.300 Neut % (Auto) 44.0 L Lymph % (Auto) 30.0 Burke % (Auto) 25.2 H Eos % (Auto) 0.2 Baso % (Auto) 0.3 Absolute Neuts (auto) 2.7 Absolute Lymphs (auto) 1.81 Nucleated RBC % 0 Sodium 140 Potassium 3.5 Chloride 110 H Carbon Dioxide 23.0 Anion Gap 7 BUN 34 H Creatinine 1.20 Estim Creat Clear Calc 56.94 Est GFR (MDRD) Af Amer 79 Est GFR (MDRD) Non-Af 66 BUN/Creatinine Ratio 28.3 H Glucose 107 H Lactic Acid Calcium 8.4 L Total Bilirubin 0.40 AST 59 H ALT 26 Alkaline Phosphatase 47 Troponin I High Sens 11 Total Protein 7.7 Albumin 2.8 L Globulin 4.9 H Albumin/Globulin Ratio 0.6 L Urine Color Yellow Urine Clarity Clear Urine pH 5.0 Ur Specific [place] 1.020 Urine Protein 30 H Urine Glucose (UA) Normal Urine Ketones 15 H Urine Occult Blood 10 H Urine Nitrite Negative Urine Bilirubin 1 H Urine Urobilinogen 1 H Ur Leukocyte Esterase 25 H Urine RBC 0 SEEN Urine WBC 5-10 SEEN Ur Squamous Epith Cells 0 SEEN Urine Bacteria 0 SEEN Urine Mucus 1+ 12/28/20 22:25 WBC RBC Hgb Hct MCV MCH MCHC RDW Std Deviation RDW Coeff of Colleen Plt Count MPV Immature Gran % (Auto) Neut % (Auto) Lymph % (Auto) Burke % (Auto) Eos % (Auto) Baso % (Auto) Absolute Neuts (auto) Absolute Lymphs (auto) Nucleated RBC % Sodium Potassium Chloride Carbon Dioxide Anion Gap BUN Creatinine Estim Creat Clear Calc Est GFR (MDRD) Af Amer Est GFR (MDRD) Non-Af BUN/Creatinine Ratio Glucose Lactic Acid 1.8 Calcium Total Bilirubin AST ALT Alkaline Phosphatase Troponin I High Sens Total Protein Albumin Globulin Albumin/Globulin Ratio Urine Color Urine Clarity Urine pH Ur Specific [place] Urine Protein Urine Glucose (UA) Urine Ketones Urine Occult Blood Urine Nitrite Urine Bilirubin Urine Urobilinogen Ur Leukocyte Esterase Urine RBC Urine WBC Ur Squamous Epith Cells Urine Bacteria Urine Mucus Radiography Diagnostic Testing: Clinical Impression(s) from Imaging Studies Chest X-Ray 12/28/20 22:35 IMPRESSION: Streaky opacities in the left lung base could represent infection versus atelectasis. Electronically Signed: Omer Burns MD at 23:04 EDT Tel , Service support , Discharge Plan Triage Chief Complaint: Weakness ED Provider: Dash Vang Dx/Rx/DC Orders Clinical Impression: COVID-19, Parkinson disease, Debility, Dehydration, mild Prescriptions: No Action ergocalciferol (vitamin D2) 1,250 mcg (50,000 unit) capsule 50,000 unit PO Q7D Qty: 10 RF: 1 levothyroxine 50 mcg tablet 50 mcg PO DAILY Qty: 90 RF: 1 mirtazapine 30 mg tablet 15 mg PO DAILY Qty: 90 RF: 1 rivaroxaban 20 mg tablet 20 mg PO DAILY Qty: 90 RF: 1 topiramate 50 MG tablet 1 tab PO BID RF: 0 sennosides-docusate sodium 1 TABLET tablet 2 tab PO BID PRN PRN (Reason: Constipation) RF: 0 melatonin 3 MG tablet 3 mg PO QHS PRN PRN (Reason: Insomnia) RF: 0 atorvastatin 40 mg tablet 40 mg PO QHS Qty: 90 RF: 3 tamsulosin [Flomax] 0.4 mg capsule 0.4 mg PO DAILY Qty: 90 RF: 3 divalproex 250 mg tablet extended release 24 hr See Rx Instructions .ROUTE .COMPLEX Qty: 90 RF: 0 levetiracetam 1,000 mg tablet 1,000 mg PO BID Qty: 60 RF: 0 propranolol 60 mg capsule,extended release 24 hr 60 mg PO DAILY Qty: 90 RF: 1 Primary Care Provider: Harmony William Referrals: Harmony William MD [Primary Care Provider] - Disposition Disposition: Acute Care [facility]
[2020-12-28 22:26] LABS: Bacteria 0 SEEN /hpf (None Seen); Red Blood Cells-Urine 0 SEEN /hpf (0-5); Squamous Epithelial Cells - UA 0 SEEN /hpf (0-5)
[2020-12-28] MEDS: 0.9% Normal Saline 1,000 ML 150 ML IV (22:29)
[2020-12-28 22:30] LABS: Color, Urine Yellow (Yellow); Glucose, Dipstick Normal (Normal); Ketone-Dipstick 15 mg/dl (Negative); Leukocyte Esterase-Dipstick 25 /ul (Negative); Nitrite-Dipstick Negative (Negative); Occult Blood-Urine 10 /ul (Negative); Protein-Dipstick 30 mg/dl (Negative); Urine Clarity Clear (Clear); Urine Urobilinogen 1 mg/dl (Normal)
--- NOTE | 2020-12-28 22:35 | RAD_ITS ---
INDICATION: cough, weakness EXAMINATION/TECHNIQUE: X-RAY - XR Chest 1 View COMPARISON: 04/30/2020. FINDINGS: Streaky opacities in the left lung base. Tortuous and calcified thoracic aorta. The heart is not enlarged. No pleural effusion or pneumothorax. No acute osseous abnormalities. Chronic fracture deformity of the left clavicle. Chronic compression deformity of a midthoracic vertebral body. RAD/Chest 1 View (Portable) IMPRESSION: Streaky opacities in the left lung base could represent infection versus atelectasis. Electronically Signed: Omer Burns MD at 23:04 EDT Tel , Service support ,
[2020-12-28 22:36] LABS: Absolute Lymphocyte Count 1.81 X10^3/uL (0.83-4.51); Absolute Neutrophil Count 2.7 X10^3/uL (2.0-7.7); Basophil# 0.02 X10^3/uL; Basophil% 0.3 % (0-1); Eosinophil# 0.01 X10^3/uL; Eosinophils% 0.2 % (0-5); Hematocrit 44.6 % (40-54); Hemoglobin 14.4 g/dL (13.0-16.5); Lymphocyte # 1.81 X10^3/ul (0.83-4.51); Mean Corp Hgb Conc 32.3 g/dL (32-36); Mean Corpuscular Volume 96.1 fL (80-94); Mean Platelet Vol. 10.2 fl (6.2-12.0); Monocyte# 1.52 X10^3/uL; Monocyte% 25.2 % (0-10); NRBC Flagged by Analyzer 0 % (0-5); Neutrophil # 2.66 X10^3/uL (2.7-7.7); POSITIVE COUNT YES; POSITIVE DIFFERENTIAL YES; Platelet Count 66 K/mm3 (150-450); RBC Distribution Width SD 46.6 fl (35.1-43.9); Red Blood Count 4.64 M/mm3 (4.6-6.2)
[2020-12-28 22:36] LABS: Urine Bilirubin Dipstick 1 mg/dL (Negative)
[2020-12-28 22:40] LABS: Mucous, Urine 1+ /hpf (<or=2+); White Blood Cells 5-10 SEEN /hpf (0-5)
[2020-12-28 22:49] LABS: ALB/GLOB Ratio 0.6 RATIO (0.9-2.4); AST(SGOT) 59 U/L (15-37); Alanine Aminotransfer ALT/SGPT 26 U/L (16-61); Albumin, Serum 2.8 g/dL (3.2-5.0); Alkaline Phosphatase 47 U/L (45-117); Anion Gap 7 (5-15); BUN 34 mg/dL (7-18); BUN/Creat Ratio 28.3 RATIO (10-20); Calcium,Total 8.4 mg/dL (8.5-10.1); Chloride 110 mmol/L (98-107); EST Glomerular Filtration Rate 66 mL/min (>60); Est Glom Filt Rate - Afr Amer 79 mL/min (>60); Estimated Creatinine Clearance 56.94 ml/min; Globulin 4.9 g/dL (2.2-4.2); Glucose 107 mg/dL (74-106); Potassium 3.5 mmol/L (3.5-5.1); Protein, Total 7.7 g/dL (6.4-8.2); Sodium Level 140 mmol/L (136-145); Troponin-I HS 11 pg/mL (3.0-78.0)
[2020-12-28 22:56] LABS: Differential Indicated SCAN CRITERIA MET
[2020-12-28 23:04] LABS: Lactic Acid 1.8 mmol/L (0.4-1.9)
[2020-12-28 23:26] LABS: Differential Comment SCANNED
[2020-12-28 23:32] VITALS: BP 91/69; PULSE 82; RESP 20; TEMP 37; O2SAT 98
--- NOTE | 2020-12-28 23:46 | HP.PCM.HOS_ITS ---
HPI - General General Date of Admission: 12/28/20 Date of Service: 12/28/20 Chief Complaint: weakness HPI Narrative MIKE ADAMS, is a 60 M who presents with weakness. Patient has been ill for the past 2 days and just very listless. Has been laying on the couch primarily. He has also been coughing and coughing up some green phlegm. Family states they have been unable to care for him since he has been ill. Normally, the patient is fairly independent though they do watch him when he walks because he does have a history of falls but can normally perform his own ADLs. But since has been sick over the past 2 days he is not been able to do much and just been laying on the couch. He presented to the emergency room and his work-up and vital signs were stable. He was positive for COVID-19. He has been vaccinated for COVID-19. In his house, there is roughly 10-15 people. History is obtained primarily through his sister is at bedside but no known sick contacts of the people in the house. [facility] Medical History Blood clotting disorder Blood transfusion without reported diagnosis BPH (benign prostatic hyperplasia) Deep vein thrombosis (DVT) of left lower extremity Failure to thrive Femur fracture, left HLD (hyperlipidemia) Hypertension Hypothyroidism Parkinson disease Seizure disorder Tachycardia Home Medications topiramate 1 tab PO BID 04/24/20 [History Last Taken Unknown] melatonin 3 mg PO QHS PRN PRN tab 05/03/20 [Rx Last Taken Unknown] sennosides-docusate sodium 2 tab PO BID PRN PRN tab 05/03/20 [Rx Last Taken Unknown] atorvastatin 40 mg tablet 40 mg PO QHS #90 tab 05/10/20 [Rx Last Taken Unknown] tamsulosin 0.4 mg capsule 0.4 mg PO DAILY #90 cap 05/10/20 [Rx Last Taken Unknown] divalproex 250 mg tablet,extended release 24 hr See Rx Instructions .ROUTE .COMPLEX #90 tab 07/04/20 [Rx Last Taken Unknown] levetiracetam 1,000 mg tablet 1,000 mg PO BID #60 tab 07/04/20 [Rx Last Taken Unknown] ergocalciferol (vitamin D2) 1,250 mcg (50,000 unit) capsule 50,000 unit PO Q7D #10 cap 10/25/20 [Rx Last Taken Unknown] levothyroxine 50 mcg tablet 50 mcg PO DAILY #90 tab 10/25/20 [Rx Last Taken Unknown] mirtazapine 30 mg tablet 15 mg PO DAILY #90 tab 10/25/20 [Rx Last Taken Unknown] rivaroxaban 20 mg tablet 20 mg PO DAILY #90 tab 10/25/20 [Rx Last Taken Unknown] propranolol 60 mg capsule,24 hr,extended release 60 mg PO DAILY #90 cap 10/29/20 [Rx Last Taken Unknown] Allergy/AdvReac Type Severity Reaction Status Date / Time No Known Allergies Allergy Verified 12/28/20 21:51 Family History (Updated 12/28/20 @ 23:[address] Luis Fernando Ortega DO) Mother Breast cancer Father Mouth cancer Brother Parkinson disease Surgical History History of left hip replacement History of orthopedic surgery S/P hip replacement Social History Smoking Status: Never smoker Smokeless tobacco user: chewing tobacco alcohol intake: never substance use type: does not use what type of physical activity do you participate in: none ROS ROS Narrative All review of systems were negative except as mentioned above in the history of present illness and the other review of systems. Vital Signs Vital Signs Vital Signs: 12/28/20 21:46 12/28/20 23:23 12/28/20 23:32 Temperature 36.7 C 37.0 C Temperature Source Temporal Temporal Pulse Rate 95 82 Respiratory Rate 25 H 20 H Blood Pressure 139/84 H 91/69 Blood Pressure Mean 102 76 Pulse Ox 95 98 Oxygen Delivery Method Room Air Room Air Room Air Weight Weight: 67.132 kg Body Mass Index (BMI) 24.6 Physical Exam Const alert Constitutional Narrative: Listless. Afebrile. No respiratory distress. HEENT normocephalic Resp normal respiratory effort and no retractions Cardio regular rate and regular rhythm GI normal to inspection, nondistended, normoactive bowel sounds, soft to palpation, non-tender and non-distended Extremity normal to inspection Skin no rashes or lesions noted and no wounds Neuro Neuro Narrative: Sluggish responses. Resting tremor. Sensorium / Orientation: alert Psych Psych Narrative: Flat affect. Results Lab / Micro Data Attestation: I reviewed the patient's lab results. Result Diagrams: 12/28/20 22:00 12/28/20 22:00 Labs: Laboratory Results - last 24 hr 12/28/20 22:00: WBC 6.0, RBC 4.64, Hgb 14.4, Hct 44.6, MCV 96.1 H, MCH 31.0, MCHC 32.3, RDW Std Deviation 46.6 H, RDW Coeff of Colleen 13.0, Plt Count 66 L, MPV 10.2, Immature Gran % (Auto) 0.300, Neut % (Auto) 44.0 L, Lymph % (Auto) 30.0, Warrick % (Auto) 25.2 H, Eos % (Auto) 0.2, Baso % (Auto) 0.3, Absolute Neuts (auto) 2.7, Absolute Lymphs (auto) 1.81, Nucleated RBC % 0, Differential Comment SCANNED 12/28/20 22:00: Sodium 140, Potassium 3.5, Chloride 110 H, Carbon Dioxide 23.0, Anion Gap 7, BUN 34 H, Creatinine 1.20, Estim Creat Clear Calc 56.94, Est GFR (MDRD) Af Amer 79, Est GFR (MDRD) Non-Af 66, BUN/Creatinine Ratio 28.3 H, Glucose 107 H, Calcium 8.4 L, Total Bilirubin 0.40, AST 59 H, ALT 26, Alkaline Phosphatase 47, Troponin I High Sens 11, Total Protein 7.7, Albumin 2.8 L, Globulin 4.9 H, Albumin/Globulin Ratio 0.6 L 12/28/20 22:05: Urine Color Yellow, Urine Clarity Clear, Urine pH 5.0, Ur Specific [place] 1.020, Urine Protein 30 H, Urine Glucose (UA) Normal, Urine Ketones 15 H, Urine Occult Blood 10 H, Urine Nitrite Negative, Urine Bilirubin 1 H, Urine Urobilinogen 1 H, Ur Leukocyte Esterase 25 H, Urine RBC 0 SEEN, Urine WBC 5-10 SEEN, Ur Squamous Epith Cells 0 SEEN, Urine Bacteria 0 SEEN, Urine Mucus 1+ 12/28/20 22:25: Lactic Acid 1.8 Micro: Microbiology 12/28/20 22:30 Nasal Secretion SARS-CoV-2 Antigen (Rapid) - Final SARS-CoV-2 (COVID 19) EKG Initial EKG: Attestation: I personally reviewed and interpreted this EKG as follows: Prior EKG tracings: available for review EKG Rhythm Intrepretation: Sinus Rhythm (Incomplete right bundle branch block. Unchanged from April 30, 2020) Radiology Impression Chest X-Ray 12/28/20 22:35 IMPRESSION: Streaky opacities in the left lung base could represent infection versus atelectasis. Electronically Signed: Omer Burns MD at 23:04 EDT Tel , Service support , Assessment & Plan Assessment/Plan (1) Failure to thrive: QUALIFIERS: Failure to thrive age range: in adult Qualified Code(s): R62.7 - Adult failure to thrive (2) COVID-19: PLAN: 1. Adult failure to thrive * This is an male with Parkinson's disease who has contracted COVID-19. * Per sister, patient is normally independent. * PT OT evaluate and treat * Patient may require long-term facility. Expressed to the patient as well as his family member that there may not be any nearby facilities excepting COVID-19 patients. The options would be that he have to go s omewhere else that accepts COVID-19, pending if there is lack of bed availability he may need to wait until he is out of isolation where he could go home or go to a facility and pay [id number]. * Case management to assist 2. COVID-19 pneumonia * Patient is vaccinated * Onset was 12/26, as of right now, patient will need to quarantine through the 13th completed 10-day course of isolation * Patient is not a candidate for inpatient treatment at this time * Ideally he would benefit from taking on an inpatient basis 3. Parkinson's disease * Complicates his overall care and recovery * Patient is more debilitated from Covid but also his underlying Parkinson's * Treatment for Parkinson's at present 4. Seizure disorder * Continue with divalproex and levetiracetam * No recent seizure 5. BPH * Continue with tamsulosin 6. History of VTE * Continue with rivaroxaban 7. VTE prophylaxis: Not indicated as patient is already anticoagulated 8. CODE STATUS: Addressed with the patient. Patient wished to be full code. Charges/Coding Visit Charges OBSV E&M: 05794 Initial observation care L3
[2020-12-29] VITALS (8 sets, daily range): BP systolic 90–113; BP diastolic 40–66; PULSE 71–82; RESP 16–18; TEMP 36.8–38.2; O2SAT 98–100; BMI 20.2
[2020-12-29] MEDS: Levothyroxine 50 MCG Tablet PO (05:07)
[2020-12-29] MEDS: levETIRAcetam 1,000 MG Tablet 1000 MG PO ×2 (09:44→23:59)
[2020-12-29] MEDS: Rivaroxaban 20 MG Tablet PO (09:44)
[2020-12-29] MEDS: Topiramate 50 MG Tablet PO ×2 (09:44→23:59)
[2020-12-29] MEDS: Tamsulosin HCl 0.4 MG Capsule PO (09:44)
[2020-12-29] MEDS: Propranolol LA 80 MG Capsule PO (09:44)
[2020-12-29] MEDS: Divalproex (ER) 500 MG Tablet PO ×2 (09:50→23:59)
--- NOTE | 2020-12-29 14:34 | PN.HOSP_ITS ---
Subjective Subjective Patient seen and examined. He was admitted from home with complaint of weakness and debility as well as coughing which was productive of greenish sputum. He tested positive for COVID-19 infection. He has been managed for debility and COVID-19 infection Patient seen and examined. He was on room air and looked comfortable. He had no complaints and review of systems otherwise negative. He has remained hemodyna mically stable and is on room air. Objective Data Objective Data Vital Signs: Vital Signs Temp Pulse Resp BP Pulse Ox 98.2 F 71 18 105/53 L 98 12/29/20 09:48 12/29/20 09:48 12/29/20 09:48 12/29/20 09:48 12/29/20 09:48 Oxygen Delivery Method Room Air Weight: 137 lb 5.568 oz Body Mass Index (BMI) 20.2 Intake & Output: Intake and Output for Last 24 Hours 12/27/20 12/28/20 12/29/20 23:59 23:59 22:59 Intake Total 1220 / 1220 Output Total 300 / 300 Balance 920 / 920 Lab / Micro Data Result Diagrams: 12/28/20 22:00 12/28/20 22:00 Labs: Laboratory Results - last 24 hr 12/28/20 22:00: WBC 6.0, RBC 4.64, Hgb 14.4, Hct 44.6, MCV 96.1 H, MCH 31.0, MCHC 32.3, RDW Std Deviation 46.6 H, RDW Coeff of Colleen 13.0, Plt Count 66 L, MPV 10.2, Immature Gran % (Auto) 0.300, Neut % (Auto) 44.0 L, Lymph % (Auto) 30.0, Crane % (Auto) 25.2 H, Eos % (Auto) 0.2, Baso % (Auto) 0.3, Absolute Neuts (auto) 2.7, Absolute Lymphs (auto) 1.81, Nucleated RBC % 0, Differential Comment SCANNED 12/28/20 22:00: Sodium 140, Potassium 3.5, Chloride 110 H, Carbon Dioxide 23.0, Anion Gap 7, BUN 34 H, Creatinine 1.20, Estim Creat Clear Calc 56.94, Est GFR (MDRD) Af Amer 79, Est GFR (MDRD) Non-Af 66, BUN/Creatinine Ratio 28.3 H, Glucose 107 H, Calcium 8.4 L, Total Bilirubin 0.40, AST 59 H, ALT 26, Alkaline Phosphatase 47, Troponin I High Sens 11, Total Protein 7.7, Albumin 2.8 L, Globulin 4.9 H, Albumin/Globulin Ratio 0.6 L 12/28/20 22:05: Urine Color Yellow, Urine Clarity Clear, Urine pH 5.0, Ur Specific [place] 1.020, Urine Protein 30 H, Urine Glucose (UA) Normal, Urine Ketones 15 H, Urine Occult Blood 10 H, Urine Nitrite Negative, Urine Bilirubin 1 H, Urine Urobilinogen 1 H, Ur Leukocyte Esterase 25 H, Urine RBC 0 SEEN, Urine WBC 5-10 SEEN, Ur Squamous Epith Cells 0 SEEN, Urine Bacteria 0 SEEN, Urine Mucus 1+ 12/28/20 22:25: Lactic Acid 1.8 Micro: Microbiology 12/28/20 22:30 Nasal Secretion SARS-CoV-2 Antigen (Rapid) - Final SARS-CoV-2 (COVID 19) Radiography Diagnostic Testing: Radiology Impression Chest X-Ray 12/28/20 22:35 IMPRESSION: Streaky opacities in the left lung base could represent infection versus atelectasis. Electronically Signed: Omer Burns MD at 23:04 EDT Tel , Service support , Physical Exam Const alert and oriented x3 Orientation / Consciousness: lethargic Exam Limitations: no limitations Nutritional Appearance: underweight HEENT head/scalp atraumatic and moist oral mucous membranes Head and Scalp: normocephalic Eyes PERRL, EOMs intact bilaterally and conjunctivae normal Neck no lymphadenopathy Resp normal respiratory effort, no retractions, no use of accessory muscles and clear to auscultation bilaterally Resp Narrative: on room air. Cardio regular rate, regular rhythm, S1 normal heart sound, S2 normal heart sound and no murmurs GI normal to inspection, nondistended, normoactive bowel sounds, soft to palpation, non-tender and non-distended Extremity normal to inspection Peripheral Pulses: Yes pulses 2+ throughout Skin no rashes or lesions noted Neuro CN's II-XII intact bilaterally Neuro Narrative: has resting tremors of RUE Sensorium / Orientation: awake and alert Psych Psych Narrative: flat affect Assessment & Plan Assessment/Plan (1) COVID-19: (2) Debility: (3) Failure to thrive: QUALIFIERS: Failure to thrive age range: in adult Qualified Code(s): R62.7 - Adult failure to thrive PLAN: #Debility with failure to thrive * PT.OT on board * nutrition consulted for dietary advice * fall precautions. * #COViD 19 infection * Currently on room air. On Decadron * Titrate oxygen as needed to maintain saturation above 90%. Patient is vaccinated. * #Parkinson's disease * Stable. PT OT on board. * Due to new meds for Parkinson's disease. Follow-up with neurology on outpatient basis. * Hyperlipidemia: On statin #History of seizure disorder: On Keppra and divalproex #BPH: On Flomax #History of DVT: On Xarelto #Hypothyroidism: Synthroid #DVT prophylaxis: Not indicated as patient already anticoagulated for history of VTE Disposition: will benefit from placement. PT/OT consulted. Case management/social work consulted. Charges/Coding Visit Charges Inpatient E&M: 48075 Subs Hosp L2
[2020-12-29] MEDS: 0.9% Normal Saline 1,000 ML 999 ML IV (16:59)
[2020-12-29] MEDS: 0.9% Saline Lock 10 ML Syringe IV (17:03)
[2020-12-29] MEDS: Acetaminophen 325 MG Tablet 650 MG PO (18:03)
[2020-12-29] MEDS: 0.9% Normal Saline 1,000 ML 125 ML IV (18:18)
[2020-12-29] MEDS: Atorvastatin Calcium 40 MG Tablet PO (23:58)
[2020-12-29] MEDS: Mirtazapine 15 MG Tablet PO (23:59)
[2020-12-30] VITALS (10 sets, daily range): BP systolic 84–100; BP diastolic 49–73; PULSE 66–98; RESP 18–22; TEMP 36.8–37.7; O2SAT 94–100
[2020-12-30] MEDS: Acetaminophen 325 MG Tablet 650 MG PO ×3 (00:14→19:13)
[2020-12-30] MEDS: 0.9% Normal Saline 1,000 ML 125 ML IV (03:07)
[2020-12-30] MEDS: Levothyroxine 50 MCG Tablet PO (03:57)
[2020-12-30] MEDS: Rivaroxaban 20 MG Tablet PO (09:36)
[2020-12-30] MEDS: Divalproex (ER) 500 MG Tablet PO ×2 (09:36→21:21)
[2020-12-30] MEDS: Tamsulosin HCl 0.4 MG Capsule PO (09:36)
[2020-12-30] MEDS: levETIRAcetam 1,000 MG Tablet 1000 MG PO ×2 (09:36→21:21)
[2020-12-30] MEDS: Topiramate 50 MG Tablet PO ×2 (09:36→21:21)
--- NOTE | 2020-12-30 11:52 | CASEMGMT ---
BARBARA GRAHAM made tc to discuss [employer] form with pt SEEMA Hernandez. BARBARA GRAHAM explained [employer] form, she voiced understanding. She gave verbal acknowledgement for signature to form. Witnessed by Efrain RAND. Form filed in chart. Pt provided with a copy of signed [employer] form. Natalie had no further questions or concerns at this time.
--- NOTE | 2020-12-30 12:50 | CASEMGMT ---
Social Work Assessment Referral Date: 12/30/2020 Date of Assessment: 12/30/2020 Reason for consult: SNF placement Personal Status: SW met with pt to complete initial assessment. Pt sleeping when this worker entered the room, woke up to speak to this worker. Pt aware he is at [facility], unable to recall time/date. Pt states that he lives in a prison and has services through [employer], unable to recall what type of services he receives. Pt states that he wants to return home. Pt confirms that his caregiver is Natalie Hernandez. Pt gave this worker permission to call Natalie. SW reviewed chart, pt has HCPOA on file and names Mary Hernandez as HCPOA. SW placed a call to Natalie Hernandez. Natalie confirms she is also Mary Hernandez. Living Arrangements: Natalie manuel pt lives in a house, states it is not a prison. Natalie confirms that she is pt's caregiver and pt has care 14/09. Natalie states there are 5-6 steps to enter. Natalie manuel pt doesn't receive [employer] services. DME: None PCP: Dr. William Pharmacy: [facility] ADLs: Natalie manuel pt was previously independent with ADLs. HCPOA: Natalie confirms she is pt's HCPOA. Pt's HCPOA is on file at [facility]. Mental Health Hx: Natalie manuel pt has depression, states pt has never utilized any Mental Health Services Income: Natalie manuel pt gets disability and SSI due to medical reasons. Natalie manuel pt has been on disability since he's been a child as pt has seizures. Natalie manuel pt has had seizures since he was a child. HHC: Natalie manuel pt has had HHC before, unable to recall name of agency. SNF: Natalie manuel she spoke with physician about getting pt to SNF. GIORGI explained that the only SNF in [facility] accepting COVID+ pt's is [facility] in [place]. GIORGI explained that the only other SNF accepting COVID+ pt's are in [facility]. Natalie is agreeable to referral being sent to [facility]. GIORGI informed Natalie that pt will need pre-cert and pt will remain at [facility] until pre-cert is obtained. Natalie states understanding. Since pt does have diagnosis of seizure disorder and pt had seizures as child, pt will likely trip the screen. GIORGI placed a call to Melany at [facility] and provided referral. GIORGI updated Melany that pt may trip the screen. GIORGI faxed referral to [facility]. Plan: [facility] pending acceptance and pre-cert and if pt will trip the screen Christiane Lemus MSW, MODULAR HOME CREW MEMBER
--- NOTE | 2020-12-30 15:13 | NURSING ---
DR FERRER AWARE OF POSITIVE BLOOD CULTURES -FROM THE 6TH WITH POSITIVE GRAMS COCCI IN CLUSTERS
--- NOTE | 2020-12-30 15:36 | NURSING ---
DR FERRER ALSO AWARE OF LOW BP
[2020-12-30] MEDS: 0.9% Saline Lock 10 ML Syringe IV ×3 (15:37→18:57)
--- NOTE | 2020-12-30 15:38 | CASEMGMT ---
PAS/RR completed, it did trigger a further review due to pt's seizure disorder. SW attached to PAS/RR document in [employer] system the following documents: H&P, Med list, PT/OT evaluations, SW assessment, POA form. SW will continue to follow, will follow up w/[facility]. ZAIN Clark
--- NOTE | 2020-12-30 15:41 | ECHOD_ITS ---
Reason For Study: OTHER Procedure This was a 2D Doppler, Color Flow transthoracic echocardiogram. The study was technically difficult. Limited views were obtained. Exam performed portable in patient room. The exam was abbreviated due to the COVID 19 protocol. Left Ventricle Normal LV size. Left ventricular systolic function is normal. The estimated ejection fraction is 65 %. Unable to assess diastolic dysfunction. No regional wall motion abnormalities noted. Right Ventricle Normal RV size. Normal systolic function. Atria Normal left atrium. Normal right atrium. Mitral Valve There is no mitral annular calcification. Normal mitral valve. Tricuspid Valve Normal tricuspid valve. Trivial tricuspid valve insufficiency. Unable to estimate RV systolic pressure/pulmonary artery pressure due to technically difficult study. Aortic Valve The aortic valve is not well visualized. Pulmonic Valve The pulmonic valve is not well visualized. Great Vessels Normal sized aortic root. Pericardium/Pleural No pericardial effusion. MMode/2D Measurements & Calculations LVIDd: 3.2 cm IVSd: 0.81 cm Ao root diam: 3.3 cm LVIDs: 2.2 cm LVPWd: 0.91 cm FS: 30.8 % LVAd ap4: 21.3 cm2 SV(MOD-sp4): 32.0 ml SV(sp4-el): 34.4 ml LVLd ap4: 7.1 cm EDV(MOD-sp4): 51.8 ml EDV(sp4-el): 54.5 ml LVAs ap4: 11.8 cm2 LVLs ap4: 5.8 cm ESV(MOD-sp4): 19.9 ml ESV(sp4-el): 20.2 ml EF(MOD-sp4): 61.7 % EF(sp4-el): 63.0 % LA dimension(2D): 2.0 cm ECHO/Echo Complete Interpretation Summary The study was technically difficult. Limited views were obtained. Left ventricular systolic function is normal. The estimated ejection fraction is 65 %. Trivial tricuspid valve insufficiency. Unable to estimate RV systolic pressure/pulmonary artery pressure due to techni kaitlin difficult study. Unable to assess diastolic dysfunction. Ordering Physician: Emely Holm Referring Physician: KURT GILLIAM Performed By: Noa Dunham RDCS
--- NOTE | 2020-12-30 15:46 | PN.HOSP_ITS ---
Subjective Subjective Patient is in his room awake with therapy and deputy director of nursing at the bedside he recently just had a large bowel movement. Does not interact much. Has a history of Parkinson's as well as a seizure disorder. Unable to ascertain whether or not he is having any symptoms. Blood pressures have been borderline with maps in the 70s but this appears to be chronic when reviewing previous data. Objective Data Objective Data Vital Signs: Vital Signs Temp Pulse Resp BP Pulse Ox 99.1 F 70 18 89/61 L 99 12/30/20 15:32 12/30/20 15:32 12/30/20 15:32 12/30/20 15:32 12/30/20 15:32 Oxygen Delivery Method Room Air Weight: 62.3 kg Body Mass Index (BMI) 20.2 Intake & Output: Intake and Output for Last 24 Hours 12/29/20 12/29/20 12/30/20 00:59 23:59 23:59 Intake Total 1450 / 1450 Output Total 400 / 400 Balance 1050 / 1050 Lab / Micro Data Result Diagrams: 12/28/20 22:00 12/28/20 22:00 Micro: Microbiology 12/28/20 22:25 Blood Culture (Wb) - Anticubital Right Blood Culture - Preliminary 12/28/20 22:05 Urine, Catheterized Urine Culture - Preliminary Culture exhibits no growth. 12/28/20 22:30 Nasal Secretion SARS-CoV-2 Antigen (Rapid) - Final SARS-CoV-2 (COVID 19) Physical Exam Const alert, no apparent distress and average body habitus Constitutional Narrative: Upper middle-aged white male who appears much older than stated age, lying in bed, no significant interaction with me although he is attentive and follows commands, nursing and therapy at bedside HEENT head/scalp atraumatic, moist oral mucous membranes and oropharynx normal HEENT Narrative: Poor dentition, Mallampati 2 Head and Scalp: normocephalic Eyes PERRL, EOMs intact bilaterally and conjunctivae normal Eyes Narrative: No scleral icterus Neck no lymphadenopathy, supple and no JVD Neck Narrative: Trachea midline Resp normal respiratory effort, no retractions, no use of accessory muscles and clear to auscultation bilaterally Auscultation: Negative for crackles, rales, rhonchi or wheezes Cardio regular rate, regular rhythm, S1 normal heart sound, S2 normal heart sound, no murmurs, no rub, no gallops, no clicks and no JVD GI normal to inspection, nondistended, normoactive bowel sounds, soft to palpation, non-tender and non-distended Extremity no clubbing, cyanosis or edema Peripheral Pulses: Yes pulses 2+ throughout Skin no rashes or lesions noted, no wounds, skin turgor normal, no jaundice, no petechiae and no mottling Neuro oriented x3, moves all extremities and no focal motor deficits Sensorium / Orientation: awake and alert Assessment & Plan Assessment/Plan (1) COVID-19: (2) Bacteremia due to Staphylococcus: (3) Failure to thrive: QUALIFIERS: Failure to thrive age range: in adult Qualified Code(s): R62.7 - Adult failure to thrive (4) Dehydration, mild: (5) Seizure disorder: (6) Parkinson disease: PLAN: Staph bacteremia -Preliminary blood cultures are positive for gram-positive cocci in clusters -Source is unclear -Start vancomycin -Check echocardiogram -Blood pressures are borderline soft but appears that this is his history--> given bacteremia will give 30 cc/kg body weight for sepsis concerns -Lactate was done on admission was normal -Consult infectious disease COVID-19 infection -Patient appears relatively asymptomatic other than fatigue and decreased p.o. intake at this time -Remains on room air with O2 sat 95 to 99% -No current need for Decadron or remdesivir -We will need 10 days of isolation--><symptom onset is somewhat unclear would do from positive test Mild dehydration -Resolved Failure to thrive -At baseline patient is fairly independent with his ADLs -2 days prior to admission his independence declined -Does have a history of falls so is watch closely with ambulation -PT and OT are following -We will likely need placement for strengthening prior to return to normal living conditions at discharge Parkinson's disease -Continue home Parkinson's treatment -Increases risk for falls and complications Seizure disorder -Continue valproate -Continue Keppra -Continue Topamax -No recent seizures per sister in the emergency department BPH -Continue Flomax Hypothyroidism -Continue levothyroxine Hyperlipidemia -Continue atorvastatin Hypertension -Propranolol is on hold given borderline blood pressures Depression -Continue mirtazapine History of DVT -Continue Xarelto CODE STATUS -Full code Charges/Coding Visit Charges Inpatient E&M: 29343 Subs Hosp L3
--- NOTE | 2020-12-30 17:04 | CASEMGMT ---
Social Work Note SW received call from Melany in Admissions at [facility] stating they are able to accept pt and will submit for pre-cert. Plan: [facility] pending pre-cert Christiane Lemus MSW, DELIVERY STOCK CLERK
[2020-12-30 17:06] LABS: Absolute Lymphocyte Count 1.32 X10^3/uL (0.83-4.51); Absolute Neutrophil Count 2.2 X10^3/uL (2.0-7.7); Basophil# 0.01 X10^3/uL; Basophil% 0.2 % (0-1); Eosinophil# 0.02 X10^3/uL; Eosinophils% 0.4 % (0-5); Hematocrit 37.7 % (40-54); Hemoglobin 12.1 g/dL (13.0-16.5); Lymphocyte # 1.32 X10^3/ul (0.83-4.51); Lymphocyte % 29.7 % (19-41); Mean Corp Hgb Conc 32.1 g/dL (32-36); Mean Corpuscular Hgb 30.9 pg (27.0-32.0); Mean Corpuscular Volume 96.4 fL (80-94); Mean Platelet Vol. 10.2 fl (6.2-12.0); Monocyte# 0.89 X10^3/uL; NRBC Flagged by Analyzer 0.4 % (0-5); Neutrophil # 2.18 X10^3/uL (2.7-7.7); POSITIVE COUNT YES; RBC Distribution Width CV 13.2 % (11.6-14.6); RBC Distribution Width SD 46.6 fl (35.1-43.9); Red Blood Count 3.91 M/mm3 (4.6-6.2); White Blood Count 4.5 K/mm3 (4.4-11.0)
[2020-12-30 17:14] LABS: Anion Gap 5 (5-15); BUN 14 mg/dL (7-18); BUN/Creat Ratio 16.3 RATIO (10-20); Calcium,Total 8.1 mg/dL (8.5-10.1); Chloride 114 mmol/L (98-107); Creatinine, Serum 0.86 mg/dL (0.70-1.30); EST Glomerular Filtration Rate 97 mL/min (>60); Est Glom Filt Rate - Afr Amer 117 mL/min (>60); Estimated Creatinine Clearance 80.49 ml/min; Glucose 83 mg/dL (74-106); Potassium 3.1 mmol/L (3.5-5.1); Sodium Level 140 mmol/L (136-145)
[2020-12-30] MEDS: Lactated Ringers 1,000 ML 75 ML IV (17:34)
[2020-12-30] MEDS: Vancomycin IV 1,000 MG/200 ML BAG 200 MG IV (17:34)
[2020-12-30 18:01] LABS: Platelet Count 39 K/mm3 (150-450)
--- NOTE | 2020-12-30 18:20 | PCM.RX.CS ---
Consult Pharmacy has been consulted to manage selected antiobiotic: Vancomycin Type of Consult: New start Prior Doses of Antibiotics Received/Current Regimen: ER 12/30/20 @1734 Labs: Sodium 140 mmol/L (136-145) 12/30/20 16:40 Potassium 3.1 mmol/L (3.5-5.1) L 12/30/20 16:40 Chloride 114 mmol/L (98-107) H 12/30/20 16:40 Carbon Dioxide 21.0 mmol/L (21.0-32.0) 12/30/20 16:40 Anion Gap 5 (5-15) 12/30/20 16:40 BUN 14 mg/dL (7-18) 12/30/20 16:40 Creatinine 0.86 mg/dL (0.70-1.30) 12/30/20 16:40 Est GFR (MDRD) Af Amer 117 mL/min (>60) 12/30/20 16:40 Est GFR (MDRD) Non-Af 97 mL/min (>60) 12/30/20 16:40 BUN/Creatinine Ratio 16.3 RATIO (10-20) 12/30/20 16:40 Glucose 83 mg/dL (74-106) 12/30/20 16:40 Microbiology: Microbiology 12/28/20 22:25 Blood Culture (Wb) - Anticubital Right Blood Culture - Preliminary 12/28/20 22:05 Urine, Catheterized Urine Culture - Preliminary Culture exhibits no growth. 12/28/20 22:30 Nasal Secretion SARS-CoV-2 Antigen (Rapid) - Final SARS-CoV-2 (COVID 19) Weight used for dosin kg Estimated Creatinine Clearance: 57 Goal Trough: 15-20 mcg/mL Pharmacy Plan for Drug Dosing: Pharmacy Service will continue to monitor and adjust dosing as required. 500MG [id number] START AT 0530 Labs to be done on [date and time ordered]: VANCOMYCIN TROUGH 01/01/21 @0500
[2020-12-30] MEDS: Potassium Chloride Oral Tablet 20 MEQ 40 MEQ PO (18:58)
--- NOTE | 2020-12-30 19:51 | NURSING ---
dr aware of low platlet count
[2020-12-30] MEDS: Atorvastatin Calcium 40 MG Tablet PO (21:21)
[2020-12-30] MEDS: Mirtazapine 15 MG Tablet PO (21:21)
[2020-12-31] VITALS (10 sets, daily range): BP systolic 82–104; BP diastolic 53–67; PULSE 71–100; RESP 18–20; TEMP 36.6–38.3; O2SAT 93–100
[2020-12-31] MEDS: Acetaminophen 325 MG Tablet 650 MG PO ×2 (02:12→12:09)
[2020-12-31] MEDS: Vancomycin IV 500 MG/100 ML BAG 100 MG IV (05:44)
[2020-12-31] MEDS: Levothyroxine 50 MCG Tablet PO (06:04)
[2020-12-31 07:59] LABS: Absolute Lymphocyte Count 1.78 X10^3/uL (0.83-4.51); Absolute Neutrophil Count 2.5 X10^3/uL (2.0-7.7); Basophil# 0.02 X10^3/uL; Basophil% 0.4 % (0-1); Eosinophil# 0.02 X10^3/uL; Eosinophils% 0.4 % (0-5); Hematocrit 33.7 % (40-54); Lymphocyte # 1.78 X10^3/ul (0.83-4.51); Lymphocyte % 33.6 % (19-41); Mean Corp Hgb Conc 32.6 g/dL (32-36); Mean Corpuscular Hgb 31.2 pg (27.0-32.0); Mean Corpuscular Volume 95.5 fL (80-94); Mean Platelet Vol. 10.7 fl (6.2-12.0); Monocyte# 0.91 X10^3/uL; Monocyte% 17.2 % (0-10); NRBC Flagged by Analyzer 0 % (0-5); Neutrophil # 2.53 X10^3/uL (2.7-7.7); Neutrophil % 47.6 % (47-70); POSITIVE COUNT YES; RBC Distribution Width CV 13.4 % (11.6-14.6); RBC Distribution Width SD 47.4 fl (35.1-43.9); Red Blood Count 3.53 M/mm3 (4.6-6.2); White Blood Count 5.3 K/mm3 (4.4-11.0)
[2020-12-31 08:10] LABS: Platelet Count 40 K/mm3 (150-450)
[2020-12-31 08:30] LABS: ALB/GLOB Ratio 0.5 RATIO (0.9-2.4); AST(SGOT) 32 U/L (15-37); Alanine Aminotransfer ALT/SGPT 11 U/L (16-61); Albumin, Serum 1.7 g/dL (3.2-5.0); Alkaline Phosphatase 29 U/L (45-117); Anion Gap 5 (5-15); BUN 11 mg/dL (7-18); BUN/Creat Ratio 14.1 RATIO (10-20); Calcium,Total 7.7 mg/dL (8.5-10.1); Chloride 115 mmol/L (98-107); Creatinine, Serum 0.78 mg/dL (0.70-1.30); EST Glomerular Filtration Rate 108 mL/min (>60); Est Glom Filt Rate - Afr Amer 131 mL/min (>60); Estimated Creatinine Clearance 88.75 ml/min; Globulin 3.7 g/dL (2.2-4.2); Glucose 94 mg/dL (74-106); Magnesium 2.1 mg/dL (1.6-2.6); Potassium 3.4 mmol/L (3.5-5.1); Protein, Total 5.4 g/dL (6.4-8.2); Sodium Level 141 mmol/L (136-145)
[2020-12-31] MEDS: Topiramate 50 MG Tablet PO ×2 (08:53→23:17)
[2020-12-31] MEDS: Tamsulosin HCl 0.4 MG Capsule PO (08:53)
[2020-12-31] MEDS: levETIRAcetam 1,000 MG Tablet 1000 MG PO ×2 (08:53→23:16)
[2020-12-31] MEDS: Ergocalciferol 1.25 MG (50, 000 UNIT) Capsule PO (08:53)
[2020-12-31] MEDS: Divalproex (ER) 500 MG Tablet PO ×2 (09:09→23:16)
--- NOTE | 2020-12-31 09:21 | NURSING ---
dr aware of platelet count at 40
--- NOTE | 2020-12-31 11:16 | PCM.CONS.GEN ---
Assessment & Plan Assessment/Plan (1) COVID-19: PLAN: covid - started around 12/26. Vaccinated. Sats down to 93-94%, will start dex and remdesivir. Single bcx with [facility], pcr neg for staph/strep. Paired cx neg at 48 hours; doubt true infection, will stop vanc. Will follow, thank you. Isolate for 20 days from 12/26. HPI Consult Data Date of Consult: 12/31/20 HPI Narrative HPI Narrative: MIKE ADAMS, is a 60 M with Parkinson, normally able to do ADLs, presented 12/28 with 2 days of weakness, cough, fatigue. Lives at home with 10-15 people. Is vaccinated for covid. In ED, covid (+), admitted. Started on vanc for (+) bcx. Pt unable to provide history or ROS due to mental status. [facility], [facility] Medical History Blood clotting disorder Blood transfusion without reported diagnosis BPH (benign prostatic hyperplasia) Deep vein thrombosis (DVT) of left lower extremity Failure to thrive Femur fracture, left HLD (hyperlipidemia) Hypertension Hypothyroidism Parkinson disease Seizure disorder Tachycardia Home Medications topiramate 1 tab PO BID 04/24/20 [History Last Taken Unknown] melatonin 3 mg PO QHS PRN PRN tab 05/03/20 [Rx Last Taken Unknown] sennosides-docusate sodium 2 tab PO BID PRN PRN tab 05/03/20 [Rx Last Taken Unknown] atorvastatin 40 mg tablet 40 mg PO QHS #90 tab 05/10/20 [Rx Last Taken Unknown] tamsulosin 0.4 mg capsule 0.4 mg PO DAILY #90 cap 05/10/20 [Rx Last Taken Unknown] levetiracetam 1,000 mg tablet 1,000 mg PO BID #60 tab 07/04/20 [Rx Last Taken Unknown] ergocalciferol (vitamin D2) 1,250 mcg (50,000 unit) capsule 50,000 unit PO Q7D #10 cap 10/25/20 [Rx Last Taken Unknown] levothyroxine 50 mcg tablet 50 mcg PO DAILY #90 tab 10/25/20 [Rx Last Taken Unknown] mirtazapine 30 mg tablet 15 mg PO DAILY #90 tab 10/25/20 [Rx Last Taken Unknown] rivaroxaban 20 mg tablet 20 mg PO DAILY #90 tab 10/25/20 [Rx Last Taken Unknown] divalproex 500 mg PO BID 12/29/20 [History Last Taken Unknown] propranolol 80 mg PO DAILY 12/29/20 [History Last Taken Unknown] Allergy/AdvReac Type Severity Reaction Status Date / Time No Known Allergies Allergy Verified 12/28/20 21:51 Family History (Updated 12/28/20 @ 23:[address] Luis Fernando Ortega DO) Mother Breast cancer Father Mouth cancer Brother Parkinson disease Surgical History History of left hip replacement History of orthopedic surgery S/P hip replacement Social History Smoking Status: Never smoker Smokeless tobacco user: chewing tobacco alcohol intake: never substance use type: does not use what type of physical activity do you participate in: none Physical Exam Const no apparent distress HEENT normocephalic and head/scalp atraumatic Eyes PERRL Neck supple and No nodes Resp Auscultation: diminished lung sounds Cardio regular rate and regular rhythm GI normal to inspection, nondistended, normoactive bowel sounds Extremity no clubbing, cyanosis or edema Skin no rashes or lesions noted Neuro CN's II-XII intact bilaterally Lab / Micro Data Result Diagrams: 12/31/20 07:04 12/31/20 07:04 Labs: Laboratory Results - last 24 hr 12/30/20 16:40: WBC 4.5, RBC 3.91 L, Hgb 12.1 L, Hct 37.7 L, MCV 96.4 H, MCH 30.9, MCHC 32.1, RDW Std Deviation 46.6 H, RDW Coeff of Colleen 13.2, Plt Count 39 L*, MPV 10.2, Immature Gran % (Auto) 0.700, Neut % (Auto) 49.0, Lymph % (Auto) 29.7, Barry % (Auto) 20.0 H, Eos % (Auto) 0.4, Baso % (Auto) 0.2, Absolute Neuts (auto) 2.2, Absolute Lymphs (auto) 1.32, Nucleated RBC % 0.4, Diff Path Review June12/30/20 16:40: Sodium 140, Potassium 3.1 L, Chloride 114 H, Carbon Dioxide 21.0, Anion Gap 5, BUN 14, Creatinine 0.86, Estim Creat Clear Calc 80.49, Est GFR (MDRD) Af Amer 117, Est GFR (MDRD) Non-Af 97, BUN/Creatinine Ratio 16.3, Glucose 83, Calcium 8.1 L 12/31/20 07:04: WBC 5.3, RBC 3.53 L, Hgb 11.0 L, Hct 33.7 L, MCV 95.5 H, MCH 31.2, MCHC 32.6, RDW Std Deviation 47.4 H, RDW Coeff of Colleen 13.4, Plt Count 40 L*, MPV 10.7, Immature Gran % (Auto) 0.800, Neut % (Auto) 47.6, Lymph % (Auto) 33.6, Barry % (Auto) 17.2 H, Eos % (Auto) 0.4, Baso % (Auto) 0.4, Absolute Neuts (auto) 2.5, Absolute Lymphs (auto) 1.78, Nucleated RBC % 0, Diff Path Review May 12/31/20 07:04: Sodium 141, Potassium 3.4 L, Chloride 115 H, Carbon Dioxide 21.0, Anion Gap 5, BUN 11, Creatinine 0.78, Estim Creat Clear Calc 88.75, Est GFR (MDRD) Af Amer 131, Est GFR (MDRD) Non-Af 108, BUN/Creatinine Ratio 14.1, Glucose 94, Calcium 7.7 L, Magnesium 2.1, Total Bilirubin 0.30, AST 32, ALT 11 L, Alkaline Phosphatase 29 L, Total Protein 5.4 L, Albumin 1.7 L, Globulin 3.7, Albumin/Globulin Ratio 0.5 L Micro: Microbiology 12/28/20 23:00 Blood Culture (Wb) - Left Wrist Blood Culture - Preliminary No growth in 48 hours. 12/28/20 22:25 Blood Culture (Wb) - Anticubital Right Bacteria Detection (PCR) - Final 12/28/20 22:25 Blood Culture (Wb) - Anticubital Right Blood Culture - Preliminary 12/28/20 22:05 Urine, Catheterized Urine Culture - Final Culture exhibits no growth.
[2020-12-31] MEDS: dexAMETHasone 4 MG Tablet 6 MG PO (11:51)
--- NOTE | 2020-12-31 14:10 | PN.HOSP_ITS ---
Subjective Subjective Patient is more talkative today. He denies any issues. He will require placement at discharge prior to transitioning back to his home. Placement is in progress. Objective Data Objective Data Vital Signs: Vital Signs Temp Pulse Resp BP Pulse Ox 97.8 F 74 20 H 91/53 L 100 12/31/20 13:20 12/31/20 13:20 12/31/20 13:20 12/31/20 13:20 12/31/20 13:20 Oxygen Delivery Method Room Air Weight: 62.3 kg Body Mass Index (BMI) 20.2 Intake & Output: Intake and Output for Last 24 Hours 12/29/20 12/30/20 12/31/20 23:59 23:59 23:59 Intake Total 4871.25 / 4871.25 2128.75 / 2128.75 Output Total 650 / 650 1800 / 1800 Balance 4221.25 / 4221.25 328.75 / 328.75 Lab / Micro Data Result Diagrams: 12/31/20 07:04 12/31/20 07:04 Labs: Laboratory Results - last 24 hr 12/30/20 16:40: WBC 4.5, RBC 3.91 L, Hgb 12.1 L, Hct 37.7 L, MCV 96.4 H, MCH 30.9, MCHC 32.1, RDW Std Deviation 46.6 H, RDW Coeff of Colleen 13.2, Plt Count 39 L*, MPV 10.2, Immature Gran % (Auto) 0.700, Neut % (Auto) 49.0, Lymph % (Auto) 29.7, [place] % (Auto) 20.0 H, Eos % (Auto) 0.4, Baso % (Auto) 0.2, Absolute Neuts (auto) 2.2, Absolute Lymphs (auto) 1.32, Nucleated RBC % 0.4, Diff Path Review June12/30/20 16:40: Sodium 140, Potassium 3.1 L, Chloride 114 H, Carbon Dioxide 21.0, Anion Gap 5, BUN 14, Creatinine 0.86, Estim Creat Clear Calc 80.49, Est GFR (MDRD) Af Amer 117, Est GFR (MDRD) Non-Af 97, BUN/Creatinine Ratio 16.3, G lucose 83, Calcium 8.1 L 12/31/20 07:04: WBC 5.3, RBC 3.53 L, Hgb 11.0 L, Hct 33.7 L, MCV 95.5 H, MCH 31.2, MCHC 32.6, RDW Std Deviation 47.4 H, RDW Coeff of Colleen 13.4, Plt Count 40 L*, MPV 10.7, Immature Gran % (Auto) 0.800, Neut % (Auto) 47.6, Lymph % (Auto) 33.6, [place] % (Auto) 17.2 H, Eos % (Auto) 0.4, Baso % (Auto) 0.4, Absolute Neuts (auto) 2.5, Absolute Lymphs (auto) 1.78, Nucleated RBC % 0, Diff Path Review June12/31/20 07:04: Sodium 141, Potassium 3.4 L, Chloride 115 H, Carbon Dioxide 21.0, Anion Gap 5, BUN 11, Creatinine 0.78, Estim Creat Clear Calc 88.75, Est GFR (MDRD) Af Amer 131, Est GFR (MDRD) Non-Af 108, BUN/Creatinine Ratio 14.1, Glucose 94, Calcium 7.7 L, Magnesium 2.1, Total Bilirubin 0.30, AST 32, ALT 11 L , Alkaline Phosphatase 29 L, Total Protein 5.4 L, Albumin 1.7 L, Globulin 3.7, Albumin/Globulin Ratio 0.5 L Micro: Microbiology 12/28/20 23:00 Blood Culture (Wb) - Left Wrist Blood Culture - Preliminary No growth in 48 hours. 12/28/20 22:25 Blood Culture (Wb) - Anticubital Right Bacteria Detection (PCR) - Final 12/28/20 22:25 Blood Culture (Wb) - Anticubital Right Blood Culture - Preliminary 12/28/20 22:05 Urine, Catheterized Urine Culture - Final Culture exhibits no growth. 12/28/20 22:30 Nasal Secretion SARS-CoV-2 Antigen (Rapid) - Final SARS-CoV-2 (COVID 19) Radiography Diagnostic Testing: Radiology Impression Echocardiogram 12/30/20 15:41 Interpretation Summary The study was technically difficult. Limited views were obtained. Left ventricular systolic function is normal. The estimated ejection fraction is 65 %. Trivial tricuspid valve insufficiency. Unable to estimate RV systolic pressure/pulmonary artery pressure due to technically difficult study. Unable to assess diastolic dysfunction. ___ Ordering Physician: Emely Holm Referring Physician: KURT GILLIAM Performed By: Noa Dunham RDCS Physical Exam Const alert, oriented x3, no apparent distress and average body habitus Constitutional Narrative: Upper middle-aged white male who appears much older than stated age, sitting up in bed and watching television, much more interactive today and does communicate with me some Orientation / Consciousness: lethargic Exam Limitations: no limitations Nutritional Appearance: underweight HEENT normocephalic, head/scalp atraumatic, moist oral mucous membranes and oropharynx normal Head and Scalp: normocephalic Eyes Eyes Narrative: No scleral icterus Resp normal respiratory effort, no retractions, no use of accessory muscles and clear to auscultation bilaterally Resp Narrative: on room air. Auscultation: Negative for crackles, rales, rhonchi or wheezes Cardio regular rate, regular rhythm, S1 normal heart sound, S2 normal heart sound, no murmurs, no rub, no gallops, no clicks and no JVD GI normal to inspection, nondistended, normoactive bowel sounds, soft to palpation, non-tender and non-distended Extremity normal to inspection and no clubbing, cyanosis or edema Extremity Narrative: Decreased lean muscle mass Peripheral Pulses: Yes pulses 2+ throughout Skin no rashes or lesions noted, no wounds, skin turgor normal, no jaundice, no petechiae and no mottling Neuro oriented x3, CN's II-XII intact bilaterally, moves all extremities and no focal motor deficits Neuro Narrative: has resting tremors of RUE Sensorium / Orientation: awake and alert Assessment & Plan Assessment/Plan (1) COVID-19: (2) Failure to thrive: QUALIFIERS: Failure to thrive age range: in adult Qualified Code(s): R62.7 - Adult failure to thrive (3) Dehydration, mild: (4) Seizure disorder: (5) Parkinson disease: (6) Thrombocytopenia: PLAN: Staph bacteremia--> suspect contaminant -Blood cultures were 1 of 2+ after complete results -Suspect contaminant with coag negative staph -Vancomycin discontinued COVID-19 infection -Patient appears relatively asymptomatic other than fatigue and decreased p.o. intake at this time -Remains on room air with O2 sat 93 to 99% -With drop in oxygen saturation under 94% remdesivir and Decadron were added by infectious disease -Day 1 of 10 for Decadron -Day 1 of 5 for remdesivir -We will need 20 days of isolation--><symptom onset is somewhat unclear would do from positive test -Patient is already on full anticoagulation with Xarelto -ID is following appreciate input Thrombocytopenia -Platelet counts have stabilized at around 40,000 -No bleeding -Current need for transfusion -Likely related to acute Covid infection -Continue to monitor Chronic macrocytic anemia -Suspect related to chronic Depakote use and medications -Hemoglobin is stable -Continue to monitor Failure to thrive -At baseline patient is fairly independent with his ADLs -2 days prior to admission his independence declined -Does have a history of falls so is watch closely with ambulation -PT and OT are following -We will likely need placement for strengthening prior to return to normal living conditions at discharge Parkinson's disease -Continue home Parkinson's treatment -Increases risk for falls and complications Seizure disorder -Continue valproate -Continue Keppra -Continue Topamax -No recent seizures per sister in the emergency department BPH -Continue Flomax Hypothyroidism -Continue levothyroxine Hyperlipidemia -Continue atorvastatin Hypertension -Propranolol is on hold given borderline blood pressures Depression -Continue mirtazapine History of DVT -Continue Xarelto CODE STATUS -Full code Charges/Coding Visit Charges Inpatient E&M: 28666 Subs Hosp L2
[2020-12-31 14:59] LABS: Pathologist Review Reviewed
[2020-12-31 15:24] LABS: Pathologist Review Reviewed
--- NOTE | 2020-12-31 15:58 | CASEMGMT ---
Addendum entered by Christiane Lemus 12/31/20 16:46: SW received note that pt's CM Sheryl Pickard at [facility] would like to called. ([phone]). GIORGI placed a call to Sheryl Pickard and left message updating her on pt's admission to [facility]. Original Note: Social Work Note Approval from [facility] is still pending. Pt cannot discharge to [facility] until approval from [facility] is obtained. GIORGI faxed updated clinicals to Melany at [facility] and updated her that approval from [facility] is still pending. GIORGI placed a call to pt's HCPSANTIAGO Hernandez and updated her that pt has been accepted to [facility] pending pre-cert. Natalie states understanding. Plan: [facility] pending pre-cert and approval from [facility] Christiane Lemus STONE LAYER, SANDBLASTER PAINT SPRAYER
[2020-12-31] MEDS: Lactated Ringers 1,000 ML 75 ML IV (16:30)
[2020-12-31] MEDS: Mirtazapine 15 MG Tablet PO (23:16)
[2020-12-31] MEDS: 0.9% Saline Lock 10 ML Syringe IV (23:17)
[2020-12-31] MEDS: Atorvastatin Calcium 40 MG Tablet PO (23:17)
[2021-01-01] VITALS (9 sets, daily range): BP systolic 102–113; BP diastolic 59–78; PULSE 68–108; RESP 16–20; TEMP 36.6–36.8; O2SAT 91–99
[2021-01-01] MEDS: Levothyroxine 50 MCG Tablet PO (04:54)
[2021-01-01] MEDS: Lactated Ringers 1,000 ML 75 ML IV ×2 (04:56→23:56)
[2021-01-01 07:37] LABS: Hematocrit 38.9 % (40-54); Hemoglobin 12.5 g/dL (13.0-16.5); Mean Corp Hgb Conc 32.1 g/dL (32-36); Mean Corpuscular Hgb 30.6 pg (27.0-32.0); Mean Corpuscular Volume 95.1 fL (80-94); Mean Platelet Vol. 10.7 fl (6.2-12.0); POSITIVE COUNT YES; Platelet Count 54 K/mm3 (150-450); RBC Distribution Width CV 13.2 % (11.6-14.6); RBC Distribution Width SD 46.8 fl (35.1-43.9); Red Blood Count 4.09 M/mm3 (4.6-6.2); White Blood Count 5.6 K/mm3 (4.4-11.0)
[2021-01-01 07:54] LABS: ALB/GLOB Ratio 0.4 RATIO (0.9-2.4); AST(SGOT) 35 U/L (15-37); Alanine Aminotransfer ALT/SGPT 14 U/L (16-61); Albumin, Serum 1.8 g/dL (3.2-5.0); Alkaline Phosphatase 40 U/L (45-117); Anion Gap 5 (5-15); BUN 14 mg/dL (7-18); BUN/Creat Ratio 19.4 RATIO (10-20); Calcium,Total 8.7 mg/dL (8.5-10.1); Chloride 115 mmol/L (98-107); Creatinine, Serum 0.72 mg/dL (0.70-1.30); EST Glomerular Filtration Rate 118 mL/min (>60); Est Glom Filt Rate - Afr Amer 143 mL/min (>60); Estimated Creatinine Clearance 96.14 ml/min; Globulin 4.3 g/dL (2.2-4.2); Glucose 147 mg/dL (74-106); Potassium 3.7 mmol/L (3.5-5.1); Protein, Total 6.1 g/dL (6.4-8.2); Sodium Level 142 mmol/L (136-145)
--- NOTE | 2021-01-01 09:58 | CASEMGMT ---
Addendum entered by Christiane Lemus 01/01/21 17:34: GIORGI received update from Melany at [facility] stating pre-cert was obtained. GIORGI updated Melany that results from [facility] are still pending, pt cannot discharge to SNF until results from [facility] are obtained. Plan: [facility] pending approval from [facility] Original Note: Social Work Note SW received message from pt's CM Sheryl Pickard stating she went to pt's home the other day and no one answered and was told that the place was abandoned. GIORGI placed a call to Sheryl Pickard and left message informing her what address [facility] has on file for pt. GIORGI encouraged Sheryl to call pt's Caregiver Natalie Hernandez as she lives with pt and may have information regarding pt's address. GIORGI reviewed [facility] system, no determination has been made yet from [facility]. Pt is medically ready for discharge once pre-cert is obtained and approval from [facility] is obtained. Christiane Lemus [employer]ERAMIC COATER, BRASS WIND INSTRUMENTS TUBE BENDER
[2021-01-01] MEDS: Divalproex (ER) 500 MG Tablet PO ×2 (11:03→20:16)
[2021-01-01] MEDS: dexAMETHasone 4 MG Tablet 6 MG PO (11:04)
[2021-01-01] MEDS: Tamsulosin HCl 0.4 MG Capsule PO (11:04)
[2021-01-01] MEDS: levETIRAcetam 1,000 MG Tablet 1000 MG PO ×2 (11:05→20:16)
[2021-01-01] MEDS: Topiramate 50 MG Tablet PO ×2 (11:14→20:16)
--- NOTE | 2021-01-01 15:25 | PN.HOSP_ITS ---
Subjective Subjective Patient is overall doing well. No issues overnight. Remains on room air. Patient has no complaints. Objective Data Objective Data Vital Signs: Vital Signs Temp Pulse Resp BP Pulse Ox 98.0 F 108 H 18 102/70 99 01/01/21 11:08 01/01/21 11:08 01/01/21 11:08 01/01/21 11:08 01/01/21 11:08 Oxygen Delivery Method Room Air Weight: 62.3 kg Body Mass Index (BMI) 20.2 Intake & Output: Intake and Output for Last 24 Hours 12/30/20 12/31/20 01/01/21 23:59 23:59 23:59 Intake Total 4871.25 / 4871.25 3078.75 / 3078.75 1890.0 / 1890.0 Output Total 650 / 650 2900 / 2900 300 / 300 Balance 4221.25 / 4221.25 178.75 / 178.75 1590.0 / 1590.0 Lab / Micro Data Result Diagrams: 01/01/21 07:10 01/01/21 07:10 Labs: Laboratory Results - last 24 hr 01/01/21 07:10: WBC 5.6, RBC 4.09 L, Hgb 12.5 L, Hct 38.9 L, MCV 95.1 H, MCH 30.6, MCHC 32.1, RDW Std Deviation 46.8 H, RDW Coeff of Colleen 13.2, Plt Count 54 L , MPV 10.7 01/01/21 07:10: Sodium 142, Potassium 3.7, Chloride 115 H, Carbon Dioxide 22.0, Anion Gap 5, BUN 14, Creatinine 0.72, Estim Creat Clear Calc 96.14, Est GFR (MDRD) Af Amer 143, Est GFR (MDRD) Non-Af 118, BUN/Creatinine Ratio 19.4, Glucose 147 H, Calcium 8.7, Total Bilirubin 0.20, AST 35, ALT 14 L, Alkaline Phosphatase 40 L, Total Protein 6.1 L, Albumin 1.8 L, Globulin 4.3 H, Albumin/ Globulin Ratio 0.4 L Micro: Microbiology 12/28/20 22:25 Blood Culture (Wb) - Anticubital Right Bacteria Detection (PCR) - Final 12/28/20 22:25 Blood Culture (Wb) - Anticubital Right Blood Culture - Preliminary Presumptive Micrococcus spp. 12/28/20 23:00 Blood Culture (Wb) - Left Wrist Blood Culture - Preliminary No growth in 48 hours. 12/28/20 22:05 Urine, Catheterized Urine Culture - Final Culture exhibits no growth. 12/28/20 22:30 Nasal Secretion SARS-CoV-2 Antigen (Rapid) - Final SARS-CoV-2 (COVID 19) Physical Exam Const alert, oriented x3, no apparent distress and average body habitus Constitutional Narrative: Upper middle-aged white male who appears much older than stated age, sitting up in bed and watching television, nursing is at the bedside Orientation / Consciousness: lethargic Exam Limitations: no limitations Nutritional Appearance: underweight HEENT normocephalic, head/scalp atraumatic, moist oral mucous membranes and oropharynx normal Head and Scalp: normocephalic Resp normal respiratory effort, no retractions, no use of accessory muscles and clear to auscultation bilaterally Resp Narrative: on room air. Auscultation: Negative for crackles, rales, rhonchi or wheezes Cardio regular rate, regular rhythm, S1 normal heart sound, S2 normal heart sound, no murmurs, no rub, no gallops, no clicks and no JVD GI normal to inspection, nondistended, normoactive bowel sounds, soft to palpation, non-tender and non-distended Extremity no clubbing, cyanosis or edema Extremity Narrative: Decreased lean muscle mass Peripheral Pulses: Yes pulses 2+ throughout Skin no rashes or lesions noted, no wounds, skin turgor normal, no jaundice, no petechiae and no mottling Neuro oriented x3, CN's II-XII intact bilaterally, moves all extremities and no focal motor deficits Sensorium / Orientation: awake and alert Assessment & Plan Assessment/Plan (1) COVID-19: (2) Failure to thrive: QUALIFIERS: Failure to thrive age range: in adult Qualified Cod e(s): R62.7 - Adult failure to thrive (3) Dehydration, mild: (4) Seizure disorder: (5) Parkinson disease: (6) Thrombocytopenia: PLAN: COVID-19 infection -Patient appears relatively asymptomatic other than fatigue and decreased p.o. intake at this time -Remains on room air with O2 sat 91 to 99% -With drop in oxygen saturation under 94% remdesivir and Decadron were added by infectious disease -Day 2 of 10 for Decadron -Day 2 of 5 for remdesivir -We will need 20 days of isolation--><symptom onset is somewhat unclear would do from positive test -Patient is already on full anticoagulation with Xarelto -ID is following appreciate input Thrombocytopenia -Platelet counts are slowly improving -No bleeding -Current need for transfusion -Likely related to acute Covid infection -Continue to monitor Chronic macrocytic anemia -Suspect related to chronic Depakote use and medications -Hemoglobin is stable -Continue to monitor Failure to thrive -At baseline patient is fairly independent with his ADLs -2 days prior to admission his independence declined -Does have a history of falls so is watch closely with ambulation -PT and OT are following -We will likely need placement for strengthening prior to return to normal living conditions at discharge Parkinson's disease -Continue home Parkinson's treatment -Increases risk for falls and complications Seizure disorder -Continue valproate -Continue Keppra -Continue Topamax -No recent seizures per sister in the emergency department BPH -Continue Flomax Hypothyroidism -Continue levothyroxine Hyperlipidemia -Continue atorvastatin Hypertension -Propranolol is on hold given borderline blood pressures Depression -Continue mirtazapine History of DVT -Continue Xarelto CODE STATUS -Full code Disposition: -Plan is for discharge to [facility] once approval and pre-CERT has been obtained. Patient is medically stable for discharge at this time Charges/Coding Visit Charges Inpatient E&M: 13413 Subs Hosp L2
[2021-01-01] MEDS: Atorvastatin Calcium 40 MG Tablet PO (20:16)
[2021-01-01] MEDS: MELATONIN 3 MG TABLET PO (20:16)
[2021-01-01] MEDS: Mirtazapine 15 MG Tablet PO (20:16)
[2021-01-02 02:20] VITALS: BP 114/82; PULSE 54; RESP 16; TEMP 36.6; O2SAT 96
[2021-01-02] MEDS: Levothyroxine 50 MCG Tablet PO (06:17)
[2021-01-02 08:03] LABS: Hematocrit 37.1 % (40-54); Hemoglobin 12.1 g/dL (13.0-16.5); Mean Corp Hgb Conc 32.6 g/dL (32-36); Mean Corpuscular Volume 95.1 fL (80-94); Mean Platelet Vol. 11.1 fl (6.2-12.0); POSITIVE COUNT YES; Platelet Count 87 K/mm3 (150-450); RBC Distribution Width CV 13.6 % (11.6-14.6); RBC Distribution Width SD 47.8 fl (35.1-43.9); White Blood Count 9.4 K/mm3 (4.4-11.0)
[2021-01-02 08:37] VITALS: BP 110/72; PULSE 74; RESP 16; TEMP 36.4; O2SAT 97
[2021-01-02 08:48] LABS: ALB/GLOB Ratio 0.4 RATIO (0.9-2.4); AST(SGOT) 36 U/L (15-37); Alanine Aminotransfer ALT/SGPT 17 U/L (16-61); Albumin, Serum 1.6 g/dL (3.2-5.0); Alkaline Phosphatase 37 U/L (45-117); Anion Gap 10 (5-15); BUN 19 mg/dL (7-18); BUN/Creat Ratio 26.6 RATIO (10-20); Calcium,Total 8.6 mg/dL (8.5-10.1); Chloride 111 mmol/L (98-107); Creatinine, Serum 0.71 mg/dL (0.70-1.30); EST Glomerular Filtration Rate 119 mL/min (>60); Est Glom Filt Rate - Afr Amer 145 mL/min (>60); Globulin 4.2 g/dL (2.2-4.2); Glucose 115 mg/dL (74-106); Potassium 3.9 mmol/L (3.5-5.1); Protein, Total 5.8 g/dL (6.4-8.2); Sodium Level 142 mmol/L (136-145)
--- NOTE | 2021-01-02 09:53 | CASEMGMT ---
Social Work Note SW checked [facility] website, no results from [facility] at this time. SW will continue to check for results from [facility]. Pt is medically ready for discharge once approval from [facility] [facility] is obtained. Plan: [facility] pending approval from [facility] [facility] Christiane Lemus MSW, VP ANALYTICS
[2021-01-02] MEDS: Lactated Ringers 1,000 ML 75 ML IV ×2 (10:23→22:45)
[2021-01-02] MEDS: levETIRAcetam 1,000 MG Tablet 1000 MG PO ×2 (10:24→20:26)
[2021-01-02] MEDS: dexAMETHasone 4 MG Tablet 6 MG PO (10:24)
[2021-01-02] MEDS: Topiramate 50 MG Tablet PO ×2 (10:24→20:26)
[2021-01-02] MEDS: Tamsulosin HCl 0.4 MG Capsule PO (10:24)
[2021-01-02] MEDS: Divalproex (ER) 500 MG Tablet PO ×2 (10:24→20:27)
--- NOTE | 2021-01-02 11:04 | CASEMGMT ---
Addendum entered by Christiane Lemus 01/02/21 16:00: SW in to speak with pt. SW updated pt that pt will be going to [facility] at discharge, just waiting on approval. GIORGI informed pt that his caregiver Natalie is aware of discharge plans and has been updated. Pt states ok. Plan: [facility] pending approval from [facility] Board of [employer] Addendum entered by Christiane Lemus 01/02/21 15:43: GIORGI checked [facility] website, no determination from [facility] Board [employer] yet. Original Note: Social Work Note GIORGI placed a call to [place] [employer] and left message for Steph in PAS[facility] department regarding pt's Level II evaluation. GIORGI informed Steph that pt is medically ready for discharge once Level II evaluation is completed. GIORGI also emailed PAS[facility] department at [place] [employer] asking about pt's Level II evaluation. Christiane Lemus YARDER PUNCHER, TOOL DESIGN ENGINEER
[2021-01-02 14:37] VITALS: BP 90/57; PULSE 78; RESP 18; TEMP 36.7; O2SAT 100
--- NOTE | 2021-01-02 15:46 | PN.HOSP_ITS ---
Subjective Subjective No issues overnight. Patient denies any complaints. Patient remains on room air with oxygen saturations at 97 and 100%. Objective Data Objective Data Vital Signs: Vital Signs Temp Pulse Resp BP Pulse Ox 98.1 F 78 18 90/57 L 100 01/02/21 14:37 01/02/21 14:37 01/02/21 14:37 01/02/21 14:37 01/02/21 14:37 Oxygen Delivery Method Room Air Weight: 62.3 kg Body Mass Index (BMI) 20.2 Intake & Output: Intake and Output for Last 24 Hours 12/31/20 01/01/21 01/02/21 23:59 23:59 23:59 Intake Total 3078.75 / 3078.75 2782.5 / 2782.5 1483.75 / 1483.75 Output Total 2900 / 2900 1000 / 1000 1300 / 1300 Balance 178.75 / 178.75 1782.5 / 1782.5 183.75 / 183.75 Lab / Micro Data Result Diagrams: 01/02/21 07:00 01/02/21 07:00 Labs: Laboratory Results - last 24 hr 01/02/21 07:00: WBC 9.4, RBC 3.90 L, Hgb 12.1 L, Hct 37.1 L, MCV 95.1 H, MCH 31.0, MCHC 32.6, RDW Std Deviation 47.8 H, RDW Coeff of Colleen 13.6, Plt Count 87 L , MPV 11.1 01/02/21 07:00: Sodium 142, Potassium 3.9, Chloride 111 H, Carbon Dioxide 21.0, Anion Gap 10, BUN 19 H, Creatinine 0.71, Estim Creat Clear Calc 97.50, Est GFR (MDRD) Af Amer 145, Est GFR (MDRD) Non-Af 119, BUN/Creatinine Ratio 26.6 H, Glucose 115 H, Calcium 8.6, Total Bilirubin 0.30, AST 36, ALT 17, Alkaline Phosphatase 37 L, Total Protein 5.8 L, Albumin 1.6 L, Globulin 4.2, Albumin/Globulin Ratio 0.4 L Micro: Microbiology 12/28/20 22:25 Blood Culture (Wb) - Anticubital Right Bacteria Detection (PCR) - Final 12/28/20 22:25 Blood Culture (Wb) - Anticubital Right Blood Culture - Preliminary Presumptive Micrococcus spp. 12/28/20 23:00 Blood Culture (Wb) - Left Wrist Blood Culture - Preliminary No growth in 48 hours. 12/28/20 22:05 Urine, Catheterized Urine Culture - Final Culture exhibits no growth. 12/28/20 22:30 Nasal Secretion SARS-CoV-2 Antigen (Rapid) - Final SARS-CoV-2 (COVID 19) Physical Exam Const alert, oriented x3, no apparent distress and average body habitus Constitutional Narrative: Upper middle-aged white male who appears much older than stated age, sitting up in bed and watching television Orientation / Consciousness: lethargic Exam Limitations: no limitations Nutritional Appearance: underweight HEENT normocephalic, head/scalp atraumatic, moist oral mucous membranes and oropharynx normal Head and Scalp: normocephalic Resp normal respiratory effort, no retractions, no use of accessory muscles and clear to auscultation bilaterally Auscultation: Negative for crackles, rales, rhonchi or wheezes Cardio regular rate, regular rhythm, S1 normal heart sound, S2 normal heart sound, no murmurs, no rub, no gallops, no clicks and no JVD GI normal to inspection, nondistended, normoactive bowel sounds, soft to palpation, non-tender and non-distended Extremity no clubbing, cyanosis or edema Extremity Narrative: Decreased lean muscle mass Peripheral Pulses: Yes pulses 2+ throughout Neuro oriented x3, moves all extremities and no focal motor deficits Neuro Narrative: has resting tremors of RUE Sensorium / Orientation: awake and alert Assessment & Plan Assessment/Plan (1) COVID-19: (2) Failure to thrive: QUALIFIERS: Failure to thrive age range: in adult Qualified Code(s): R62.7 - Adult failure to thrive (3) Dehydration, mild: (4) Seizure disorder: (5) Parkinson disease: (6) Thrombocytopenia: PLAN: COVID-19 infection -Patient appears relatively asymptomatic other than fatigue and decreased p.o. intake at this time -Remains on room air with O2 sat 91 to 99% -With drop in oxygen saturation under 94% remdesivir and Decadron were added by infectious disease -Day 3 of 10 for Decadron -Day 3 of 5 for remdesivir -We will need 20 days of isolation--><symptom onset is somewhat unclear would do from positive test -Patient is already on full anticoagulation with Xarelto -ID is following appreciate input Thrombocytopenia -Platelets up to 87,000 today -No bleeding -Restart Xarelto -Current need for transfusion -Likely related to acute Covid infection -Continue to monitor Chronic macrocytic anemia -Suspect related to chronic Depakote use and medications -Hemoglobin is stable -Continue to monitor Failure to thrive -At baseline patient is fairly independent with his ADLs -2 days prior to admission his independence declined -Does have a history of falls so is watch closely with ambulation -PT and OT are following -We will likely need placement for strengthening prior to return to normal living conditions at discharge Parkinson's disease -Continue home Parkinson's treatment -Increases risk for falls and complications Seizure disorder -Continue valproate -Continue Keppra -Continue Topamax -No recent seizures per sister in the emergency department BPH -Continue Flomax Hypothyroidism -Continue levothyroxine Hyperlipidemia -Continue atorvastatin Hypertension -Propranolol is on hold given borderline blood pressures Depression -Continue mirtazapine History of DVT -Restart Xarelto CODE STATUS -Full code Disposition: -Plan is for discharge to [facility] once we have approval from the state as pre- CERT has now been obtained. Patient remains medically stable for discharge at this time Charges/Coding Visit Charges Inpatient E&M: 35944 Subs Hosp L2
[2021-01-02 16:40] VITALS: BP 94/58; PULSE 78; RESP 18; TEMP 36.6; O2SAT 100
[2021-01-02] MEDS: Rivaroxaban 20 MG Tablet PO (16:42)
[2021-01-02 20:20] VITALS: BP 108/72; PULSE 65; RESP 16; TEMP 36.6; O2SAT 97
[2021-01-02] MEDS: Atorvastatin Calcium 40 MG Tablet PO (20:26)
[2021-01-02] MEDS: MELATONIN 3 MG TABLET PO (20:26)
[2021-01-02] MEDS: Mirtazapine 15 MG Tablet PO (20:27)
[2021-01-02] MEDS: 0.9% Saline Lock 10 ML Syringe IV (20:27)
[2021-01-03 02:30] VITALS: BP 104/69; PULSE 65; RESP 18; TEMP 36.5; O2SAT 98
[2021-01-03] MEDS: Levothyroxine 50 MCG Tablet PO (04:31)
[2021-01-03 07:21] LABS: Hematocrit 34.6 % (40-54); Hemoglobin 11.5 g/dL (13.0-16.5); Mean Corp Hgb Conc 33.2 g/dL (32-36); Mean Corpuscular Hgb 31.6 pg (27.0-32.0); Mean Corpuscular Volume 95.1 fL (80-94); Mean Platelet Vol. 10.7 fl (6.2-12.0); Platelet Count 140 K/mm3 (150-450); RBC Distribution Width CV 13.7 % (11.6-14.6); RBC Distribution Width SD 47.7 fl (35.1-43.9); Red Blood Count 3.64 M/mm3 (4.6-6.2)
[2021-01-03 07:53] LABS: ALB/GLOB Ratio 0.4 RATIO (0.9-2.4); AST(SGOT) 36 U/L (15-37); Alanine Aminotransfer ALT/SGPT 20 U/L (16-61); Albumin, Serum 1.6 g/dL (3.2-5.0); Alkaline Phosphatase 36 U/L (45-117); Anion Gap 7 (5-15); BUN 22 mg/dL (7-18); BUN/Creat Ratio 31.5 RATIO (10-20); Calcium,Total 8.2 mg/dL (8.5-10.1); Chloride 114 mmol/L (98-107); EST Glomerular Filtration Rate 122 mL/min (>60); Est Glom Filt Rate - Afr Amer 148 mL/min (>60); Estimated Creatinine Clearance 98.89 ml/min; Globulin 3.6 g/dL (2.2-4.2); Glucose 130 mg/dL (74-106); Protein, Total 5.2 g/dL (6.4-8.2); Sodium Level 145 mmol/L (136-145)
[2021-01-03 08:41] VITALS: BP 104/75; PULSE 62; RESP 16; TEMP 36.7; O2SAT 97
[2021-01-03] MEDS: Tamsulosin HCl 0.4 MG Capsule PO (08:44)
[2021-01-03] MEDS: Divalproex (ER) 500 MG Tablet PO ×2 (08:44→21:23)
[2021-01-03] MEDS: dexAMETHasone 4 MG Tablet 6 MG PO (08:44)
[2021-01-03] MEDS: levETIRAcetam 1,000 MG Tablet 1000 MG PO ×2 (08:44→21:23)
[2021-01-03] MEDS: Topiramate 50 MG Tablet PO ×2 (08:45→21:23)
[2021-01-03 10:02] VITALS: O2SAT 97
--- NOTE | 2021-01-03 10:34 | CASEMGMT ---
Addendum entered by Christiane Lemus 01/03/21 17:08: Pt will be at [facility] through the weekend as approval from [place] Board of DD is needed and they do not work on the weekends. At this time, there is no approval from [place] [employer] DD. Original Note: Social Work Note SW received email from [facility] of DD. The email states the [facility] board has seven business days to complete their portion of the assessment and then [facility] has an additional two day. Per the email [facility] DD has not completed their assessment yet. Christiane Lemus LEAD PERSON, POWER WASHER
[2021-01-03] MEDS: 0.9% Saline Lock 10 ML Syringe IV (10:47)
[2021-01-03 14:25] VITALS: BP 132/85; PULSE 62; RESP 18; TEMP 36.7; O2SAT 98
[2021-01-03] MEDS: Lactated Ringers 1,000 ML 75 ML IV (14:28)
--- NOTE | 2021-01-03 14:53 | PN.HOSP_ITS ---
Subjective Subjective No issues overnight. Patient remains on room air. Patient denies any complaints at this time and is watching television. Awaiting approval from the state for discharge and placement to [facility] for rehab prior to returning home. Objective Data Objective Data Vital Signs: Vital Signs Temp Pulse Resp BP Pulse Ox 98.1 F 62 18 132/85 H 98 01/03/21 14:25 01/03/21 14:25 01/03/21 14:25 01/03/21 14:25 01/03/21 14:25 Oxygen Delivery Method Room Air Weight: 62.3 kg Body Mass Index (BMI) 20.2 Intake & Output: Intake and Output for Last 24 Hours 01/01/21 01/02/21 01/03/21 23:59 23:59 23:59 Intake Total 2782.5 / 2782.5 2761.25 / 2761.25 1989 / 1989 Output Total 1000 / 1000 1450 / 1700 1800 / 1800 Balance 1782.5 / 1782.5 1311.25 / 1061.25 190 / 190 Lab / Micro Data Result Diagrams: 01/03/21 05:55 01/03/21 06:32 Labs: Laboratory Results - last 24 hr 01/03/21 05:55: WBC 9.0, RBC 3.64 L, Hgb 11.5 L, Hct 34.6 L, MCV 95.1 H, MCH 31. 6, MCHC 33.2, RDW Std Deviation 47.7 H, RDW Coeff of Colleen 13.7, Plt Count 140 L, MPV 10.7 01/03/21 06:32: Sodium 145, Potassium 4.0, Chloride 114 H, Carbon Dioxide 24.0, Anion Gap 7, BUN 22 H, Creatinine 0.70, Estim Creat Clear Calc 98.89, Est GFR (MDRD) Af Amer 148, Est GFR (MDRD) Non-Af 122, BUN/Creatinine Ratio 31.5 H, Glucose 130 H, Calcium 8.2 L, Total Bilirubin 0.20, AST 36, ALT 20, Alkaline Phosphatase 36 L, Total Protein 5.2 L, Albumin 1.6 L, Globulin 3.6, Albumin/Globulin Ratio 0.4 L Micro: Microbiology 12/28/20 22:25 Blood Culture (Wb) - Anticubital Right Bacteria Detection (PCR) - Final 12/28/20 22:25 Blood Culture (Wb) - Anticubital Right Blood Culture - Final Presumptive Micrococcus spp. 12/28/20 23:00 Blood Culture (Wb) - Left Wrist Blood Culture - Final No growth in 5 days. 12/28/20 22:05 Urine, Catheterized Urine Culture - Final Culture exhibits no growth. 12/28/20 22:30 Nasal Secretion SARS-CoV-2 Antigen (Rapid) - Final SARS-CoV-2 (COVID 19) Physical Exam Const alert, oriented x3, no apparent distress and average body habitus Constitutional Narrative: Upper middle-aged white male who appears much older than stated age, sitting up in bed and watching television, appears comfortable Orientation / Consciousness: lethargic Exam Limitations: no limitations Nutritional Appearance: underweight HEENT normocephalic, head/scalp atraumatic, moist oral mucous membranes and oropharynx normal Head and Scalp: normocephalic Resp normal respiratory effort, no retractions, no use of accessory muscles and clear to auscultation bilaterally Auscultation: Negative for crackles, rales, rhonchi or wheezes Cardio regular rate, regular rhythm, S1 normal heart sound, S2 normal heart sound, no murmurs, no rub, no gallops, no clicks and no JVD GI normal to inspection, nondistended, normoactive bowel sounds, soft to palpation, non-tender and non-distended Extremity no clubbing, cyanosis or edema Extremity Narrative: Decreased lean muscle mass Peripheral Pulses: Yes pulses 2+ throughout Neuro oriented x3, moves all extremities and no focal motor deficits Neuro Narrative: has resting tremors of RUE Sensorium / Orientation: awake and alert Assessment & Plan Assessment/Plan (1) COVID-19: (2) Failure to thrive: QUALIFIERS: Failure to thrive age range: in adult Qualified Code(s): R62.7 - Adult failure to thrive (3) Dehydration, mild: (4) Seizure disorder: (5) Parkinson disease: (6) Thrombocytopenia: PLAN: COVID-19 infection -Patient appears relatively asymptomatic other than fatigue and decreased p.o. intake at this time -Remains on room air with O2 sat 97 to 100% -With drop in oxygen saturation under 94% remdesivir and Decadron were added by infectious disease -Day for Decadron -Day 4 of 5 for remdesivir -We will need 20 days of isolation--><symptom onset is somewhat unclear would do from positive test -Patient is already on full anticoagulation with Xarelto -ID is following appreciate input Thrombocytopenia -Resolving -Platelets up to 140,000 -No bleeding -Continue Xarelto -Current need for transfusion -Likely related to acute Covid infection -Continue to monitor Chronic macrocytic anemia -Suspect related to chronic Depakote use and medications -Hemoglobin is stable -Continue to monitor Failure to thrive -At baseline patient is fairly independent with his ADLs -2 days prior to admission his independence declined -Does have a history of falls so is watch closely with ambulation -PT and OT are following -We will likely need placement for strengthening prior to return to normal living conditions at discharge Parkinson's disease -Continue home Parkinson's treatment -Increases risk for falls and complications Seizure disorder -Continue valproate -Continue Keppra -Continue Topamax -No recent seizures per sister in the emergency department BPH -Continue Flomax Hypothyroidism -Continue levothyroxine Hyperlipidemia -Continue atorvastatin Hypertension -Continue to hold propranolol but monitor heart rate and blood pressures and restart as appropriate Depression -Continue mirtazapine History of DVT -Restart Xarelto CODE STATUS -Full code Disposition: -Plan is for discharge to [place] once we have approval from the state as pre- CERT has now been obtained. Patient remains medically stable for discharge at this time Charges/Coding Visit Charges Inpatient E&M: 90183 Subs Hosp L2
--- NOTE | 2021-01-03 16:03 | PCS.PANDOC ---
PANDEMIC DOCUMENTATION INITIATED: Date: 10/07/2020 Time: 190
[2021-01-03] MEDS: Rivaroxaban 20 MG Tablet PO (17:55)
[2021-01-03 21:18] VITALS: BP 113/69; PULSE 70; RESP 18; TEMP 36.6; O2SAT 95
[2021-01-03] MEDS: Atorvastatin Calcium 40 MG Tablet PO (21:22)
[2021-01-03] MEDS: Mirtazapine 15 MG Tablet PO (21:23)
[2021-01-04] MEDS: Lactated Ringers 1,000 ML 75 ML IV ×2 (02:27→17:54)
[2021-01-04] MEDS: Levothyroxine 50 MCG Tablet PO (02:27)
[2021-01-04 02:28] VITALS: BP 93/67; PULSE 58; RESP 18; TEMP 36.4; O2SAT 95
[2021-01-04 05:06] VITALS: BP 109/66; PULSE 50; RESP 18; TEMP 36.7; O2SAT 96
[2021-01-04 06:12] LABS: Hematocrit 37.2 % (40-54); Hemoglobin 12.1 g/dL (13.0-16.5); Mean Corp Hgb Conc 32.5 g/dL (32-36); Mean Corpuscular Hgb 30.9 pg (27.0-32.0); Mean Corpuscular Volume 94.9 fL (80-94); Mean Platelet Vol. 10.6 fl (6.2-12.0); Platelet Count 189 K/mm3 (150-450); RBC Distribution Width CV 13.7 % (11.6-14.6); RBC Distribution Width SD 47.1 fl (35.1-43.9); Red Blood Count 3.92 M/mm3 (4.6-6.2); White Blood Count 9.2 K/mm3 (4.4-11.0)
[2021-01-04 06:47] LABS: ALB/GLOB Ratio 0.4 RATIO (0.9-2.4); AST(SGOT) 27 U/L (15-37); Alanine Aminotransfer ALT/SGPT 19 U/L (16-61); Albumin, Serum 1.6 g/dL (3.2-5.0); Alkaline Phosphatase 36 U/L (45-117); Anion Gap 5 (5-15); BUN 23 mg/dL (7-18); BUN/Creat Ratio 32.8 RATIO (10-20); Calcium,Total 8.3 mg/dL (8.5-10.1); Chloride 111 mmol/L (98-107); EST Glomerular Filtration Rate 122 mL/min (>60); Est Glom Filt Rate - Afr Amer 147 mL/min (>60); Estimated Creatinine Clearance 98.89 ml/min; Globulin 3.9 g/dL (2.2-4.2); Glucose 141 mg/dL (74-106); Potassium 3.8 mmol/L (3.5-5.1); Protein, Total 5.5 g/dL (6.4-8.2); Sodium Level 141 mmol/L (136-145)
[2021-01-04] MEDS: dexAMETHasone 4 MG Tablet 6 MG PO (11:01)
[2021-01-04] MEDS: levETIRAcetam 1,000 MG Tablet 1000 MG PO ×2 (11:02→20:54)
[2021-01-04] MEDS: Topiramate 50 MG Tablet PO ×2 (11:02→20:54)
[2021-01-04] MEDS: Tamsulosin HCl 0.4 MG Capsule PO (11:02)
[2021-01-04] MEDS: Divalproex (ER) 500 MG Tablet PO ×2 (11:02→20:54)
[2021-01-04 11:05] VITALS: BP 92/64; PULSE 76; RESP 18; TEMP 36.4; O2SAT 99
[2021-01-04 15:20] VITALS: BP 101/80; PULSE 103; RESP 18; TEMP 36.5; O2SAT 98
--- NOTE | 2021-01-04 16:15 | PCM.PN.HOSP ---
Subjective Subjective No issues overnight. The patient states he is feeling well. States he would like some close and I did assure him prior to or when he goes to his next level of care he would have regular close. No complaints. Objective Data Objective Data Vital Signs: Vital Signs Temp Pulse Resp BP Pulse Ox 97.7 F L 103 H 18 101/80 98 01/04/21 15:20 01/04/21 15:20 01/04/21 15:20 01/04/21 15:20 01/04/21 15:20 Oxygen Delivery Method Room Air Weight: 62.3 kg Body Mass Index (BMI) 20.2 Intake & Output: Intake and Output for Last 24 Hours 01/02/21 01/03/21 01/04/21 23:59 23:59 23:59 Intake Total 2761.25 / 2761.25 2290 / 2290 1628.75 / 1628.75 Output Total 1450 / 1700 2300 / 2300 800 / 800 Balance 1311.25 / 1061.25 -10 / -10 828.75 / 828.75 Lab / Micro Data Result Diagrams: 01/04/21 05:40 01/04/21 05:40 Labs: Laboratory Results - last 24 hr 01/04/21 05:40: WBC 9.2, RBC 3.92 L, Hgb 12.1 L, Hct 37.2 L, MCV 94.9 H, MCH 30.9, MCHC 32.5, RDW Std Deviation 47.1 H, RDW Coeff of Colleen 13.7, Plt Count 189, MPV 10.6 01/04/21 05:40: Sodium 141, Potassium 3.8, Chloride 111 H, Carbon Dioxide 25.0, Anion Gap 5, BUN 23 H, Creatinine 0.70, Estim Creat Clear Calc 98.89, Est GFR (MDRD) Af Amer 147, Est GFR (MDRD) Non-Af 122, BUN/Creatinine Ratio 32.8 H, Glucose 141 H, Calcium 8.3 L, Total Bilirubin 0.20, AST 27, ALT 19, Alkaline Phosphatase 36 L, Total Protein 5.5 L, Albumin 1.6 L, Globulin 3.9, Albumin/Globulin Ratio 0.4 L Micro: Microbiology 12/28/20 22:25 Blood Culture (Wb) - Anticubital Right Bacteria Detection (PCR) - Final 12/28/20 22:25 Blood Culture (Wb) - Anticubital Right Blood Culture - Final Presumptive Micrococcus spp. 12/28/20 23:00 Blood Culture (Wb) - Left Wrist Blood Culture - Final No growth in 5 days. 12/28/20 22:05 Urine, Catheterized Urine Culture - Final Culture exhibits no growth. 12/28/20 22:30 Nasal Secretion SARS-CoV-2 Antigen (Rapid) - Final SARS-CoV-2 (COVID 19) Physical Exam Const alert, oriented x3, no apparent distress and average body habitus Constitutional Narrative: Upper middle-aged white male who appears much older than stated age, sitting up in a chair at the bedside and watching television, appears comfortable Orientation / Consciousness: lethargic Exam Limitations: no limitations Nutritional Appearance: underweight HEENT normocephalic, head/scalp atraumatic, moist oral mucous membranes and oropharynx normal Head and Scalp: normocephalic Resp normal respiratory effort, no retractions, no use of accessory muscles and clear to auscultation bilaterally Auscultation: Negative for crackles, rales, rhonchi or wheezes Cardio regular rate, regular rhythm, S1 normal heart sound, S2 normal heart sound, no murmurs, no rub, no gallops, no clicks and no JVD GI normal to inspection, nondistended, normoactive bowel sounds, soft to palpation, non-tender and non-distended Extremity no clubbing, cyanosis or edema Extremity Narrative: Decreased lean muscle mass Peripheral Pulses: Yes pulses 2+ throughout Skin no rashes or lesions noted, no wounds, skin turgor normal, no jaundice, no petechiae and no mottling Neuro oriented x3, moves all extremities and no focal motor deficits Neuro Narrative: has resting tremors of RUE Sensorium / Orientation: awake and alert Psych Psych Narrative: flat affect Assessment & Plan Assessment/Plan (1) COVID-19: (2) Failure to thrive: QUALIFIERS: Failure to thrive age range: in adult Qualified Code(s): R62.7 - Adult failure to thrive (3) Dehydration, mild: (4) Seizure disorder: (5) Parkinson disease: (6) Thrombocytopenia: PLAN: COVID-19 infection -Patient appears relatively asymptomatic other than fatigue and decreased p.o. intake at this time -Remains on room air with O2 sat 94 to 99% -With drop in oxygen saturation under 94% remdesivir and Decadron were added by infectious disease -Day 5 of 10 for Decadron -Day 5 of 5 for remdesivir -We will need 20 days of isolation--><symptom onset is somewhat unclear would do from positive test -Patient is already on full anticoagulation with Xarelto -ID is following appreciate input Thrombocytopenia -Resolved Chronic macrocytic anemia -Suspect related to chronic Depakote use and medications -Hemoglobin is stable -Continue to monitor Failure to thrive -At baseline patient is fairly independent with his ADLs -2 days prior to admission his independence declined -Does have a history of falls so is watch closely with ambulation -PT and OT are following -We will likely need placement for strengthening prior to return to normal living conditions at discharge Parkinson's disease -Continue home Parkinson's treatment -Increases risk for falls and complications Seizure disorder -Continue valproate -Continue Keppra -Continue Topamax -No recent seizures per sister in the emergency department BPH -Continue Flomax Hypothyroidism -Continue levothyroxine Hyperlipidemia -Continue atorvastatin Hypertension -Continue to hold propranolol but monitor heart rate and blood pressures and restart as appropriate Depression -Continue mirtazapine History of DVT -Restart Xarelto CODE STATUS -Full code Disposition: -Plan is for discharge to [place] once we have approval from the state as pre-CERT has now been obtained. Patient remains medically stable for discharge at this time Charges/Coding Visit Charges Inpatient E&M: 50181 Subs Hosp L2
[2021-01-04] MEDS: Rivaroxaban 20 MG Tablet PO (17:53)
[2021-01-04 20:49] VITALS: BP 93/72; PULSE 73; RESP 18; TEMP 36.4; O2SAT 97
[2021-01-04] MEDS: MELATONIN 3 MG TABLET PO (20:54)
[2021-01-04] MEDS: Atorvastatin Calcium 40 MG Tablet PO (20:54)
[2021-01-04] MEDS: Mirtazapine 15 MG Tablet PO (20:54)
[2021-01-05 03:13] VITALS: BP 95/57; PULSE 56; RESP 18; TEMP 36.5; O2SAT 98
[2021-01-05] MEDS: Lactated Ringers 1,000 ML 75 ML IV ×2 (03:20→17:03)
[2021-01-05] MEDS: Levothyroxine 50 MCG Tablet PO (03:21)
[2021-01-05 05:54] LABS: Hematocrit 36.2 % (40-54); Hemoglobin 11.8 g/dL (13.0-16.5); Mean Corp Hgb Conc 32.6 g/dL (32-36); Mean Corpuscular Hgb 30.8 pg (27.0-32.0); Mean Corpuscular Volume 94.5 fL (80-94); Mean Platelet Vol. 9.9 fl (6.2-12.0); Platelet Count 258 K/mm3 (150-450); RBC Distribution Width CV 13.7 % (11.6-14.6); RBC Distribution Width SD 46.9 fl (35.1-43.9); Red Blood Count 3.83 M/mm3 (4.6-6.2); White Blood Count 10.8 K/mm3 (4.4-11.0)
[2021-01-05 06:30] LABS: ALB/GLOB Ratio 0.4 RATIO (0.9-2.4); AST(SGOT) 29 U/L (15-37); Alanine Aminotransfer ALT/SGPT 20 U/L (16-61); Albumin, Serum 1.4 g/dL (3.2-5.0); Alkaline Phosphatase 33 U/L (45-117); Anion Gap 5 (5-15); BUN 22 mg/dL (7-18); BUN/Creat Ratio 36.4 RATIO (10-20); Calcium,Total 8.1 mg/dL (8.5-10.1); Chloride 109 mmol/L (98-107); EST Glomerular Filtration Rate 145 mL/min (>60); Est Glom Filt Rate - Afr Amer 175 mL/min (>60); Estimated Creatinine Clearance 115.37 ml/min; Globulin 3.7 g/dL (2.2-4.2); Glucose 151 mg/dL (74-106); Potassium 3.9 mmol/L (3.5-5.1); Protein, Total 5.1 g/dL (6.4-8.2); Sodium Level 140 mmol/L (136-145)
[2021-01-05 09:15] VITALS: BP 94/63; PULSE 78; RESP 16; TEMP 36.9; O2SAT 97
[2021-01-05] MEDS: Divalproex (ER) 500 MG Tablet PO ×2 (09:30→21:26)
[2021-01-05] MEDS: Topiramate 50 MG Tablet PO ×2 (09:30→21:26)
[2021-01-05] MEDS: levETIRAcetam 1,000 MG Tablet 1000 MG PO ×2 (09:30→21:26)
[2021-01-05] MEDS: Tamsulosin HCl 0.4 MG Capsule PO (09:30)
[2021-01-05] MEDS: dexAMETHasone 4 MG Tablet 6 MG PO (09:30)
--- NOTE | 2021-01-05 13:48 | PN.HOSP_ITS ---
Subjective Subjective No issues overnight. Patient states he is feeling well. Objective Data Objective Data Vital Signs: Vital Signs Temp Pulse Resp BP Pulse Ox 98.5 F 78 16 94/63 97 01/05/21 09:15 01/05/21 09:15 01/05/21 09:15 01/05/21 09:15 01/05/21 09:15 Oxygen Delivery Method Room Air Weight: 62.3 kg Body Mass Index (BMI) 20.2 Intake & Output: Intake and Output for Last 24 Hours 01/03/21 01/04/21 01/05/21 23:59 23:59 23:59 Intake Total 2290 / 2290 3158.75 / 3158.75 707.5 / 707.5 Output Total 2300 / 2300 1800 / 1800 500 / 500 Balance -10 1358.75 / 1358.75 207.5 / 207.5 Lab / Micro Data Result Diagrams: 01/05/21 05:23 01/05/21 05:23 Labs: Laboratory Results - last 24 hr 01/05/21 05:23: WBC 10.8, RBC 3.83 L, Hgb 11.8 L, Hct 36.2 L, MCV 94.5 H, MCH 30.8, MCHC 32.6, RDW Std Deviation 46.9 H, RDW Coeff of Colleen 13.7, Plt Count 258, MPV 9.9 01/05/21 05:23: Sodium 140, Potassium 3.9, Chloride 109 H, Carbon Dioxide 26.0, Anion Gap 5, BUN 22 H, Creatinine 0.60 L, Estim Creat Clear Calc 115.37, Est GFR (MDRD) Af Amer 175, Est GFR (MDRD) Non-Af 145, BUN/Creatinine Ratio 36.4 H, Gluc ose 151 H, Calcium 8.1 L, Total Bilirubin 0.20, AST 29, ALT 20, Alkaline Phosphatase 33 L, Total Protein 5.1 L, Albumin 1.4 L, Globulin 3.7, Albumin/Globulin Ratio 0.4 L Micro: Microbiology 12/28/20 22:25 Blood Culture (Wb) - Anticubital Right Bacteria Detection (PCR) - Final 12/28/20 22:25 Blood Culture (Wb) - Anticubital Right Blood Culture - Final Presumptive Micrococcus spp. 12/28/20 23:00 Blood Culture (Wb) - Left Wrist Blood Culture - Final No growth in 5 days. 12/28/20 22:05 Urine, Catheterized Urine Culture - Final Culture exhibits no growth. 12/28/20 22:30 Nasal Secretion SARS-CoV-2 Antigen (Rapid) - Final SARS-CoV-2 (COVID 19) Physical Exam Const alert, oriented x3, no apparent distress and average body habitus Constitutional Narrative: Upper middle-aged white male who appears much older than stated age, sitting up in a chair at the bedside and watching television, appears comfortable Orientation / Consciousness: lethargic Exam Limitations: no limitations Nutritional Appearance: underweight HEENT normocephalic, head/scalp atraumatic, moist oral mucous membranes and oropharynx normal HEENT Narrative: No thrush Head and Scalp: normocephalic Resp normal respiratory effort, no retractions, no use of accessory muscles and clear to auscultation bilaterally Resp Narrative: on room air. Auscultation: Negative for crackles, rales, rhonchi or wheezes Cardio regular rate, regular rhythm, S1 normal heart sound, S2 normal heart sound, no murmurs, no rub, no gallops, no clicks and no JVD GI normal to inspection, nondistended, normoactive bowel sounds, soft to palpation, non-tender and non-distended Extremity no clubbing, cyanosis or edema Extremity Narrative: Decreased lean muscle mass Neuro oriented x3, moves all extremities and no focal motor deficits Neuro Narrative: has resting tremors of RUE Sensorium / Orientation: awake and alert Assessment & Plan Assessment/Plan (1) COVID-19: (2) Failure to thrive: QUALIFIERS: Failure to thrive age range: in adult Qualified Code(s): R62.7 - Adult failure to thrive (3) Dehydration, mild: (4) Seizure disorder: (5) Parkinson disease: (6) Thrombocytopenia: PLAN: COVID-19 infection -Patient appears relatively asymptomatic other than fatigue and decreased p.o. intake at this time -Remains on room air with O2 sat 97 to 99% -With drop in oxygen saturation under 94% remdesivir and Decadron were added by infectious disease -Day 6 of 10 for Decadron -Has completed remdesivir -We will need 20 days of isolation--><symptom onset is somewhat unclear would do from positive test -Patient is already on full anticoagulation with Xarelto -ID is following appreciate input Chronic macrocytic anemia -Suspect related to chronic Depakote use and medications -Hemoglobin is stable -Continue to monitor Failure to thrive -At baseline patient is fairly independent with his ADLs -2 days prior to admission his independence declined -Does have a history of falls so is watch closely with ambulation -PT and OT are following -We will likely need placement for strengthening prior to return to normal living conditions at discharge Parkinson's disease -Continue home Parkinson's treatment -Increases risk for falls and complications Seizure disorder -Continue valproate -Continue Keppra -Continue Topamax -No recent seizures per sister in the emergency department BPH -Continue Flomax Hypothyroidism -Continue levothyroxine Hyperlipidemia -Continue atorvastatin Hypertension -Continue to hold propranolol but monitor heart rate and blood pressures and restart as appropriate Depression -Continue mirtazapine History of DVT -Continue Xarelto CODE STATUS -Full code Disposition: -Plan is for discharge to [place] once we have approval from the state as pre- CERT has now been obtained. Patient remains medically stable for discharge at this time Charges/Coding Visit Charges Inpatient E&M: 47477 Subs Hosp L2
[2021-01-05 15:00] VITALS: BP 100/80; PULSE 62; RESP 18; TEMP 36.4; O2SAT 98
[2021-01-05] MEDS: Rivaroxaban 20 MG Tablet PO (17:36)
[2021-01-05 21:19] VITALS: BP 105/69; PULSE 73; RESP 18; TEMP 36.5; O2SAT 97
[2021-01-05] MEDS: Mirtazapine 15 MG Tablet PO (21:26)
[2021-01-05] MEDS: Atorvastatin Calcium 40 MG Tablet PO (21:26)
[2021-01-05] MEDS: MELATONIN 3 MG TABLET PO (21:26)
[2021-01-06] VITALS (7 sets, daily range): BP systolic 86–105; BP diastolic 56–68; PULSE 61–85; RESP 16–18; TEMP 36.3–37.1; O2SAT 94–99
[2021-01-06] MEDS: Lactated Ringers 1,000 ML 75 ML IV ×2 (04:16→17:48)
[2021-01-06] MEDS: Levothyroxine 50 MCG Tablet PO (04:17)
[2021-01-06] MEDS: Divalproex (ER) 500 MG Tablet PO ×2 (09:41→21:05)
[2021-01-06] MEDS: dexAMETHasone 4 MG Tablet 6 MG PO (09:41)
[2021-01-06] MEDS: Rivaroxaban 20 MG Tablet PO (09:41)
[2021-01-06] MEDS: levETIRAcetam 1,000 MG Tablet 1000 MG PO ×2 (09:41→21:05)
[2021-01-06] MEDS: Tamsulosin HCl 0.4 MG Capsule PO (09:41)
[2021-01-06] MEDS: Topiramate 50 MG Tablet PO ×2 (09:41→21:05)
--- NOTE | 2021-01-06 09:48 | CASEMGMT ---
Addendum entered by Christiane Lemus 01/06/21 15:22: SW placed a call to [facility] Board of DD and left message for update on pt's assessment. SW waiting for call back. Original Note: Social Work Note SW reviewed [facility] website, no determination from Board of DD yet. [facility]GI faxed updated clinicals to Melany at [facility]. Plan: [facility] skilled pending approval from Board of DD Christiane Lemus SUPERVISOR COIN MACHINE, MEDICAL SAFETY DIRECTOR
--- NOTE | 2021-01-06 18:29 | PN.HOSP_ITS ---
Subjective Subjective Patient was seen and examined today, patient is alert, he answers simple questions but he does not carry on conversations with this examiner. I asked him if he was aware that he was going to be going to a halfway facility and he answered no. Objective Data Objective Data Vital Signs: Vital Signs Temp Pulse Resp BP Pulse Ox 97.6 F L 85 16 94/61 99 01/06/21 17:58 01/06/21 17:58 01/06/21 17:58 01/06/21 17:58 01/06/21 17:58 Oxygen Delivery Method Room Air Weight: 62.3 kg Body Mass Index (BMI) 20.2 Intake & Output: Intake and Output for Last 24 Hours 01/04/21 01/05/21 01/06/21 23:59 23:59 23:59 Intake Total 3158.75 / 3158.75 2007.5 / 2007.5 2341.25 / 2341.25 Output Total 1800 / 1800 1400 / 1400 900 / 900 Balance 1358.75 / 1358.75 607.5 / 607.5 1441.25 / 1441.25 Lab / Micro Data Result Diagrams: 01/05/21 05:23 01/05/21 05:23 Micro: Microbiology 12/28/20 22:25 Blood Culture (Wb) - Anticubital Right Bacteria Detection (PCR) - Final 12/28/20 22:25 Blood Culture (Wb) - Anticubital Right Blood Culture - Final Presumptive Micrococcus spp. 12/28/20 23:00 Blood Culture (Wb) - Left Wrist Blood Culture - Final No growth in 5 days. 12/28/20 22:05 Urine, Catheterized Urine Culture - Final Culture exhibits no growth. 12/28/20 22:30 Nasal Secretion SARS-CoV-2 Antigen (Rapid) - Final SARS-CoV-2 (COVID 19) Physical Exam Const alert and no apparent distress Constitutional Narrative: Patient appears much older than his stated age, there is evidence of cognitive impairment. General Appearance: cooperative, well kempt and well developed Orientation / Consciousness: awake, oriented to person, oriented to place and oriented to time HEENT normocephalic and head/scalp atraumatic Head and Scalp: normocephalic Eyes PERRL, EOMs intact bilaterally and conjunctivae normal Neck nuchal rigidity, supple, no JVD, thyroid normal and no carotid bruits General: trachea midline Resp normal respiratory effort, no retractions, no use of accessory muscles and clear to auscultation bilaterally Auscultation: Negative for rales, rhonchi or wheezes Cardio regular rate, regular rhythm, S1 normal heart sound, S2 normal heart sound, no murmurs, no rub and no gallops GI normal to inspection, nondistended, normoactive bowel sounds, soft to palpation, non-tender and non-distended Extremity no clubbing, cyanosis or edema Skin no rashes or lesions noted General Skin Exam: no breakdown Neuro CN's II-XII intact bilaterally, no focal motor deficits and no sensory deficits noted Sensorium / Orientation: awake and alert Speech: speech normal Psych thought process normal Psych Narrative: Patient has cognitive impairment Assessment & Plan Assessment/Plan (1) COVID-19: PLAN: 1. COVID-19 pneumonia-patient remains on Decadron at this time, we are awaiting approval for the patient to go to an extended care facility for rehab services. Patient has completed remdesivir, patient will need isolation until January 15, 2021. 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 EEG done on 06/28/2019 was abnormal showing mild to moderate diffuse slowing consistent with nonspecific encephalopathy. No clear epileptiform activity was identified. MRI of the brain with and without contrast was carried out on 06/08/2019, it showed moderate atrophy with white mat ter ischemic changes-no evidence for acute infarction or mass was noted. There were no enhancing lesions following contrast administration with this MRI. #3 cognitive impairment-this appears to be chronic in nature, it may be secondary to seizure disorder, I talked with the patient's caregiver who stated that the patient has never had a job his entire life, she is not aware of a psychiatric diagnosis that the patient has but she states that the patient has had increased forgetfulness over the past year. I did talk with a nurse practitioner who sees him as an outpatient-Manuel Zhou, he states that the patient has had cognitive issues since he has been seen in the office at least over the past 2 years. He is not aware of any exact diagnosis that the patient has for his cognitive impairment. #4 hypothyroidism #5 tremor-etiology unclear, I have reviewed outpatient neurological progress notes-these notes were dated 07/09/2020, the diagnosis on this progress note is not Parkinson's disease, tremor is listed as a diagnosis. #6 essential hypertension Charges/Coding Visit Charges Inpatient E&M: 81732 Subs Hosp L2
[2021-01-06] MEDS: Mirtazapine 15 MG Tablet PO (21:05)
[2021-01-06] MEDS: Atorvastatin Calcium 40 MG Tablet PO (21:05)
[2021-01-07 02:38] VITALS: BP 94/65; PULSE 65; RESP 18; TEMP 36.6; O2SAT 97
[2021-01-07] MEDS: Levothyroxine 50 MCG Tablet PO (05:56)
[2021-01-07] MEDS: Lactated Ringers 1,000 ML 75 ML IV (05:59)
[2021-01-07] MEDS: dexAMETHasone 4 MG Tablet 6 MG PO (07:42)
[2021-01-07 07:44] VITALS: BP 99/59; PULSE 63; RESP 18; TEMP 36.7; O2SAT 98
[2021-01-07] MEDS: Divalproex (ER) 500 MG Tablet PO ×2 (10:51→20:19)
[2021-01-07] MEDS: levETIRAcetam 1,000 MG Tablet 1000 MG PO ×2 (10:51→20:19)
[2021-01-07] MEDS: Ergocalciferol 1.25 MG (50, 000 UNIT) Capsule PO (10:51)
[2021-01-07] MEDS: 0.9% Saline Lock 10 ML Syringe IV (10:51)
[2021-01-07] MEDS: Tamsulosin HCl 0.4 MG Capsule PO (10:51)
[2021-01-07] MEDS: Topiramate 50 MG Tablet PO ×2 (10:51→20:19)
--- NOTE | 2021-01-07 11:11 | CASEMGMT ---
Addendum entered by Christiane Lemus 01/07/21 15:19: GIORGI placed a call to Berny at [facility] Board of DD ([phone] or [phone]) and left message regarding pt's PAS/RR. GIORGI received call from Berny stating they have seven days to complete their assessment. Berny asked what was the diagnosis that tripped the screen. GIORGI informed Mihaijonny that pt has seizures and when this worker spoke with pt's caregiver Natalie Mary, she told this worker that pt has had seizures since he was a child so they manifested before pt was age 22. Berny states pt had a PAS/RR back in 2018 and tripped due to pt's epilepsy and she was able to rule out. Berny states she may be able to rule out pt again. Breny states she has left work for the day and will get pt's assessment completed tomorrow. Berny asked for this worker to email her Natalie Hernandez number. Berny's email: [email or web address]. GIORGI emailed NatalieRosemarys Mary number to Berny. GIORGI placed a call to pt's HCPOA Natalie Hernandez and updated her that insurance approval has been obtained but due to pt's Seizure's, pt needs approval from [facility] Board of DD and the [facility] Board of DD before pt can discharge to SNF. Natalie manuel understanding. Plan: [facility] SNF under PAS/RR level of care pending approval from [facility] Board of DD and [facility] Board of DD Original Note: Social Work Note GIORGI checked H[facility] website, no determination has been made. GIORGI updated Melany at [facility]. Melany states she resubmitted for pre-cert and got the pre-cert back so pt is good to admit to [facility] when Board of DD makes their determination. Christiane Lemus INSTRUMENT PERSON, [employer]
[2021-01-07 12:05] VITALS: BP 95/60; PULSE 78; RESP 16; TEMP 36.5; O2SAT 96
[2021-01-07 13:46] VITALS: O2SAT 96
[2021-01-07 17:29] VITALS: BP 93/65; PULSE 88; RESP 18; TEMP 36.7; O2SAT 97
[2021-01-07] MEDS: Rivaroxaban 20 MG Tablet PO (17:31)
--- NOTE | 2021-01-07 18:48 | PCM.PN.HOSP ---
Subjective Subjective Patient was seen and examined today, he does not appear to be in any distress at this time, patient remains on room air. Objective Data Objective Data Vital Signs: Vital Signs Temp Pulse Resp BP Pulse Ox 98.0 F 88 18 93/65 97 01/07/21 17:29 01/07/21 17:29 01/07/21 17:29 01/07/21 17:29 01/07/21 17:29 Oxygen Delivery Method Room Air Weight: 62.3 kg Body Mass Index (BMI) 20.2 Intake & Output: Intake and Output for Last 24 Hours 01/05/21 01/06/21 01/07/21 23:59 23:59 23:59 Intake Total 2007.5 / 2006.5 2341.25 / 2341.25 / Output Total 1400 / 1400 900 / 1150 2450 / 2450 Balance 607.5 / 607.5 1441.25 / 1191.25 -436.25 / -436.25 Lab / Micro Data Result Diagrams: 01/05/21 05:23 01/05/21 05:23 Micro: Microbiology 12/28/20 22:25 Blood Culture (Wb) - Anticubital Right Bacteria Detection (PCR) - Final 12/28/20 22:25 Blood Culture (Wb) - Anticubital Right Blood Culture - Final Presumptive Micrococcus spp. 12/28/20 23:00 Blood Culture (Wb) - Left Wrist Blood Culture - Final No growth in 5 days. 12/28/20 22:05 Urine, Catheterized Urine Culture - Final Culture exhibits no growth. 12/28/20 22:30 Nasal Secretion SARS-CoV-2 Antigen (Rapid) - Final SARS-CoV-2 (COVID 19) Physical Exam Const alert and no apparent distress Constitutional Narrative: Patient appears much older than the stated age, patient appears to have cognitive impairment General Appearance: cooperative, well kempt and well developed Orientation / Consciousness: awake, oriented to person, oriented to place and oriented to time HEENT normocephalic, head/scalp atraumatic and moist oral mucous membranes Head and Scalp: normocephalic Eyes PERRL, EOMs intact bilaterally and conjunctivae normal Neck nuchal rigidity, supple, no JVD, thyroid normal and no carotid bruits General: trachea midline Resp normal respiratory effort, no retractions, no use of accessory muscles and clear to auscultation bilaterally Auscultation: Negative for rales, rhonchi or wheezes Cardio regular rate, regular rhythm, S1 normal heart sound, S2 normal heart sound, no murmurs, no rub and no gallops GI normal to inspection, nondistended, normoactive bowel sounds, soft to palpation, non-tender and non-distended Extremity Extremity Narrative: There was noted to be +2 to 3 mm pitting edema over the patient's lower legs and feet bilaterally Skin no rashes or lesions noted and skin turgor normal General Skin Exam: no breakdown Neuro CN's II-XII intact bilaterally, no focal motor deficits and no sensory deficits noted Sensorium / Orientation: awake and alert Speech: speech normal Psych thought process normal Psych Narrative: Patient shows signs of cognitive impairment Assessment & Plan Assessment/Plan (1) COVID-19: PLAN: 1. COVID-19 pneumonia-patient remains on Decadron at this time, we are awaiting approval for the patient to go to an extended care facility for rehab services. Patient has completed remdesivir, patient will need isolation until January 15, 2021. 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 EEG done on 06/28/2019 was abnormal showing mild to moderate diffuse slowing consistent with nonspecific encephalopathy. No clear epileptiform activity was identified. MRI of the brain with and without contrast was carried out on 06/08/2019, it showed moderate atrophy with white matter ischemic changes-no evidence for acute infarction or mass was noted. There were no enhancing lesions following contrast administration with this MRI. #3 cognitive impairment-this appears to be chronic in nature- it may be secondary to seizure disorder, I was not able to get a diagnosis from his medical record or from social work coordinator as to why the patient has cognitive impairment. #4 hypothyroidism #5 tremor-etiology unclear, I have reviewed outpatient neurological progress notes-these notes were dated 07/09/2020, the diagnosis on this progress note is not Parkinson's disease, tremor is listed as a diagnosis. #6 essential hypertension Charges/Coding Visit Charges Inpatient E&M: 04426 Subs Hosp L2
[2021-01-07 20:12] VITALS: BP 102/74; PULSE 81; RESP 16; TEMP 36.7; O2SAT 98
[2021-01-07] MEDS: Furosemide 40 MG Tablet PO (20:19)
[2021-01-07] MEDS: Atorvastatin Calcium 40 MG Tablet PO (20:20)
[2021-01-07] MEDS: Mirtazapine 15 MG Tablet PO (20:20)
[2021-01-08 02:34] VITALS: BP 91/58; PULSE 58; RESP 16; TEMP 36.6; O2SAT 97
[2021-01-08] MEDS: Levothyroxine 50 MCG Tablet PO (06:14)
[2021-01-08] MEDS: Topiramate 50 MG Tablet PO ×2 (08:42→20:41)
[2021-01-08] MEDS: Divalproex (ER) 500 MG Tablet PO ×2 (08:42→20:41)
[2021-01-08] MEDS: levETIRAcetam 1,000 MG Tablet 1000 MG PO ×2 (08:42→20:41)
[2021-01-08] MEDS: dexAMETHasone 4 MG Tablet 6 MG PO (08:42)
[2021-01-08] MEDS: Tamsulosin HCl 0.4 MG Capsule PO (08:42)
[2021-01-08 08:46] VITALS: BP 91/65; PULSE 76; RESP 16; TEMP 36.4; O2SAT 98
[2021-01-08 10:09] VITALS: O2SAT 100
--- NOTE | 2021-01-08 13:26 | CASEMGMT ---
Addendum entered by Raquel Hutson 01/08/21 13:33: SW did let pt's NEERU Estrada know that we are still waiting for a further determination in order for pt to go to the halfway. Natalie states understanding. ZAIN Clark Original Note: GIORGI checked the HENS system, the further review is still pending. ZAIN Clark
[2021-01-08 14:50] VITALS: BP 101/66; PULSE 73; RESP 16; TEMP 36.6; O2SAT 98
--- NOTE | 2021-01-08 15:29 | PN.HOSP_ITS ---
Subjective Subjective Feels well. No new issues. Objective Data Objective Data Vital Signs: Vital Signs Temp Pulse Resp BP Pulse Ox 36.6 C 73 16 101/66 98 01/08/21 14:50 01/08/21 14:50 01/08/21 14:50 01/08/21 14:50 01/08/21 14:50 Oxygen Delivery Method Room Air Weight: 62.3 kg Body Mass Index (BMI) 20.2 Intake & Output: Intake and Output for Last 24 Hours 01/06/21 01/07/21 01/08/21 23:59 23:59 23:59 Intake Total 2341.25 / 2341.25 3190.00 / 3190.00 550 / 550 Output Total 900 / 1150 3100 / 3100 1900 / 1900 Balance 1441.25 / 1191.25 90.00 / 90.00 -1350 / -1350 Lab / Micro Data Result Diagrams: 01/05/21 05:23 01/05/21 05:23 Micro: Microbiology 12/28/20 22:25 Blood Culture (Wb) - Anticubital Right Bacteria Detection (PCR) - Final 12/28/20 22:25 Blood Culture (Wb) - Anticubital Right Blood Culture - Final Presumptive Micrococcus spp. 12/28/20 23:00 Blood Culture (Wb) - Left Wrist Blood Culture - Final No growth in 5 days. 12/28/20 22:05 Urine, Catheterized Urine Culture - Final Culture exhibits no growth. 12/28/20 22:30 Nasal Secretion SARS-CoV-2 Antigen (Rapid) - Final SARS-CoV-2 (COVID 19) Physical Exam Const alert Resp normal respiratory effort, no retractions, no use of accessory muscles and clear to auscultation bilaterally Cardio regular rate, regular rhythm, S1 normal heart sound and S2 normal heart sound GI normal to inspection, nondistended, normoactive bowel sounds, soft to palpation, non-tender and non-distended Extremity normal to inspection General Extremity: edema Neuro Sensorium / Orientation: awake and alert Assessment & Plan Assessment/Plan (1) COVID-19: (2) Debility: PLAN: 1. Adult failure to thrive This is an male with Parkinson's disease who has contracted COVID-19. Per sister, patient is normally independent. PT OT evaluate and treat Patient may require longterm facility. Expressed to the patient as well as his family member that there may not be any nearby facilities excepting COVID-19 patients. The options would be that he have to go somewhere else that accepts COVID-19, pending if there is lack of bed availability he may need to w ait until he is out of isolation where he could go home or go to a facility and pay [id number]. Case management to assist awaiting on approval. pt medically stable for discharge 2. COVID-19 pneumonia Patient is vaccinated Onset was 12/26, as of right now,per ID, pt to quarantine through the since oxygen dropped down to 93% at one point. completed remd, on dex through 01/09 3. Parkinson's disease Complicates his overall care and recovery Patient is more debilitated from Covid but also his underlying Parkinson's Treatment for Parkinson's at present 4. Seizure disorder Continue with divalproex and levetiracetam No recent seizure 5. BPH Continue with tamsulosin 6. History of VTE Continue with rivaroxaban 7. VTE prophylaxis: Not indicated as patient is already anticoagulated 8. CODE STATUS: Addressed with the patient. Patient wished to be full code. Charges/Coding Visit Charges Inpatient E&M: 54003 Subs Hosp L2
[2021-01-08] MEDS: Rivaroxaban 20 MG Tablet PO (17:13)
[2021-01-08 17:28] VITALS: BP 94/67; PULSE 101; RESP 16; TEMP 36.4; O2SAT 100
[2021-01-08 20:34] VITALS: BP 100/65; PULSE 76; RESP 16; TEMP 36.6; O2SAT 99
[2021-01-08] MEDS: Atorvastatin Calcium 40 MG Tablet PO (20:41)
[2021-01-08] MEDS: 0.9% Saline Lock 10 ML Syringe IV (20:41)
[2021-01-08] MEDS: Mirtazapine 15 MG Tablet PO (20:42)
[2021-01-09 02:19] VITALS: BP 105/63; PULSE 64; RESP 16; TEMP 36.6; O2SAT 98
[2021-01-09] MEDS: Levothyroxine 50 MCG Tablet PO (05:51)
--- NOTE | 2021-01-09 07:01 | PCM.CONS.GEN ---
Assessment & Plan Assessment/Plan (1) Tinea unguium: (2) Toe pain, right: (3) Toe pain, left: (4) Localized edema: PLAN: I reviewed and discussed his case. His lower extremities were evaluated. He does not appear to have any lower extremity ulcers or infections. The etiology of thickened toenails was briefly reviewed including fungus or microtrauma. The nails were debrided with a nail nipper after verbal consent was obtained without incident. The nails were debrided in length and thickness to reduce pressure, potential fungal load, and to prevent wound formation; bilateral 1,2,3,4,5. The patient tolerated this well. The patient elects proceed with palliative care only at this time with the nails and will hold off on further work-up. To follow-up with the [facility] if needed in the future for this condition. To wear protective and supportive shoes. To check feet daily and keep webspaces clean and dry. To moisturize skin to preserve skin integrity was also recommended. To continue with lower extremity Lopez wraps. His comorbidities are noted and managed per hospitalist service. Please do not hesitate to call if you have any questions. Kerrie Srinivasan DPM, [facility] [phone] HPI Consult Data Date of Consult: 01/09/21 HPI Narrative HPI Narrative: MIKE ADAMS, is a 60 M who has been treated in the hospital for failure to thrive and Covid sequela. He does have a history of Parkinson's disease and thrombocytopenia with history of debility and prior multiple falls. He now complains of a painful thick toenails that is cutting into his other toes and asked for help trimming these. He does not feel safe performing his Fascione. He reports moderate pain with direct pressure. He does not usually walk a significant degree. He does have lower extremity swelling and wears Lopez wraps. He denies a history of prior wounds to the lower extremities. He is resting comfortable during the exam and is participating in a minimal manner this morning. [facility] Medical History Blood clotting disorder Blood transfusion without reported diagnosis BPH (benign prostatic hyperplasia) Deep vein thrombosis (DVT) of left lower extremity Failure to thrive Femur fracture, left HLD (hyperlipidemia) Hypertension Hypothyroidism Parkinson disease Seizure disorder Tachycardia Home Medications topiramate 1 tab PO BID 04/24/20 [History Last Taken Unknown] melatonin 3 mg PO QHS PRN PRN tab 05/03/20 [Rx Last Taken Unknown] sennosides-docusate sodium 2 tab PO BID PRN PRN tab 05/03/20 [Rx Last Taken Unknown] atorvastatin 40 mg tablet 40 mg PO QHS #90 tab 05/10/20 [Rx Last Taken Unknown] tamsulosin 0.4 mg capsule 0.4 mg PO DAILY #90 cap 05/10/20 [Rx Last Taken Unknown] levetiracetam 1,000 mg tablet 1,000 mg PO BID #60 tab 07/04/20 [Rx Last Taken Unknown] ergocalciferol (vitamin D2) 1,250 mcg (50,000 unit) capsule 50,000 unit PO Q7D #10 cap 10/25/20 [Rx Last Taken Unknown] levothyroxine 50 mcg tablet 50 mcg PO DAILY #90 tab 10/25/20 [Rx Last Taken Unknown] mirtazapine 30 mg tablet 15 mg PO DAILY #90 tab 10/25/20 [Rx Last Taken Unknown] rivaroxaban 20 mg tablet 20 mg PO DAILY #90 tab 10/25/20 [Rx Last Taken Unknown] divalproex 500 mg PO BID 12/29/20 [History Last Taken Unknown] propranolol 80 mg PO DAILY 12/29/20 [History Last Taken Unknown] Allergy/AdvReac Type Severity Reaction Status Date / Time No Known Allergies Allergy Verified 12/28/20 21:51 Family History (Updated 12/28/20 @ 23:[address] Luis Fernando Ortega DO) Mother Breast cancer Father Mouth cancer Brother Parkinson disease Surgical History History of left hip replacement History of orthopedic surgery S/P hip replacement Social History Smoking Status: Never smoker Smokeless tobacco user: chewing tobacco alcohol intake: never substance use type: does not use what type of physical activity do you participate in: none Physical Exam Const alert and oriented x3 General Appearance: cooperative HEENT normocephalic Extremity normal capillary refill Extremity Narrative: no cyanosis, no calf tenderness, diminished pulses muscle wasting noted. no tenderness. Feet are warm to touch and he does have weak pulses to PT and DP bilateral. There is mild to moderate edema noted with Lopez wraps intact. General Extremity: edema Skin Skin Narrative: no purulence, no erythema, no streaking, no odor, no infection. Adjacent skin is atrophic. No lower extremity ulcers. Toenails are long, thick, dystrophic with debris bilateral 1, 2, 3, 4, 5. The left 5th toenail also is protruding in a dorsal manner with a sharp prominence Neuro Neuro Narrative: epicritic sensation via light touch noted Lab / Micro Data Result Diagrams: 01/05/21 05:23 01/05/21 05:23
[2021-01-09 08:30] VITALS: BP 90/64; PULSE 84; RESP 16; TEMP 37; O2SAT 99
[2021-01-09] MEDS: Topiramate 50 MG Tablet PO (08:58)
[2021-01-09] MEDS: levETIRAcetam 1,000 MG Tablet 1000 MG PO (08:58)
[2021-01-09] MEDS: dexAMETHasone 4 MG Tablet 6 MG PO (08:58)
[2021-01-09] MEDS: Tamsulosin HCl 0.4 MG Capsule PO (08:58)
[2021-01-09] MEDS: Divalproex (ER) 500 MG Tablet PO (08:58)
[2021-01-09] MEDS: 0.9% Saline Lock 10 ML Syringe IV (09:00)
--- NOTE | 2021-01-09 14:57 | PN.HOSP_ITS ---
Subjective Subjective Feels well. No shortness of breath. Objective Data Objective Data Vital Signs: Vital Signs Temp Pulse Resp BP Pulse Ox 37.0 C 84 16 90/64 99 01/09/21 08:30 01/09/21 08:30 01/09/21 08:30 01/09/21 08:30 01/09/21 08:30 Oxygen Delivery Method Room Air Weight: 62.3 kg Body Mass Index (BMI) 20.2 Intake & Output: Intake and Output for Last 24 Hours 01/07/21 01/08/21 01/09/21 23:59 23:59 23:59 Intake Total 3190.00 / 3190.00 850 / 850 300 / 300 Output Total 3100 / 3100 2400 / 2800 1300 / 1300 Balance 90.00 / 90.00 -1550 / -1950 -1000 / -1000 Lab / Micro Data Result Diagrams: 01/05/21 05:23 01/05/21 05:23 Micro: Microbiology 12/28/20 22:25 Blood Culture (Wb) - Anticubital Right Bacteria Detection (PCR) - Final 12/28/20 22:25 Blood Culture (Wb) - Anticubital Right Blood Culture - Final Presumptive Micrococcus spp. 12/28/20 23:00 Blood Culture (Wb) - Left Wrist Blood Culture - Final No growth in 5 days. 12/28/20 22:05 Urine, Catheterized Urine Culture - Final Culture exhibits no growth. 12/28/20 22:30 Nasal Secretion SARS-CoV-2 Antigen (Rapid) - Final SARS-CoV-2 (COVID 19) Physical Exam Const alert and no apparent distress Constitutional Narrative: up in chair. Resp normal respiratory effort, no retractions, no use of accessory muscles and clear to auscultation bilaterally Cardio regular rate, regular rhythm, S1 normal heart sound and S2 normal heart sound GI normal to inspection, nondistended, normoactive bowel sounds, soft to palpation, non-tender and non-distended Extremity normal to inspection General Extremity: edema Assessment & Plan Assessment/Plan (1) COVID-19: (2) Debility: PLAN: 1. Adult failure to thrive This is an male with Parkinson's disease who has contracted COVID-19. Per sister, patient is normally independent. PT OT evaluate and treat Patient may require residential facility. Expressed to the patient as well as his family member that there may not be any nearby facilities excepting COVID-19 patients. The options would be that he have to go somewhere else that accepts COVID-19, pending if there is lack of bed availability he may need to wait until he is out of isolation where he could go home or go to a facility and pay [id number]. Case management to assist awaiting on approval. pt medically stable for discharge 2. COVID-19 pneumonia Patient is vaccinated Onset was 12/26, as of right now,per ID, pt to quarantine through the since oxygen dropped down to 93% at one point. completed remd, on dex through 01/09 3. Parkinson's disease Complicates his overall care and recovery Patient is more debilitated from Covid but also his underlying Parkinson's Treatment for Parkinson's at present 4. Seizure disorder Continue with divalproex and levetiracetam No recent seizure 5. BPH Continue with tamsulosin 6. History of VTE Continue with rivaroxaban 7. VTE prophylaxis: Not indicated as patient is already anticoagulated 8. CODE STATUS: Addressed with the patient. Patient wished to be full code. Charges/Coding Visit Charges Inpatient E&M: 74987 Subs Hosp L2
[2021-01-09 15:01] VITALS: BP 100/63; PULSE 85; RESP 16; TEMP 36.8; O2SAT 98
--- NOTE | 2021-01-09 15:29 | PCM.TXEXTCAR ---
Diet 12/29/20 00:51 Diet: Regular - General Food consistency:: Regular Liquid Consistency:: Regular/Thin Type of Dietary Supplement:: Ensure Compact Diet Comments: ensure compact w/ meals Routine Orders/Code Status Code Status: Full Code Wound(s) bilat legs: Wound Type: blisters Therapies Weight Bearing: Full weight bearing Physical Therapy: Eval and Treat Occupational Therapy: Eval and Treat Problem/Diagnosis (1) COVID-19: Status: Acute (2) Debility: Status: Acute Allergies/Procedures Done in Hospital Allergies No Known Allergies Allergy (Verified 12/28/20 21:51) Procedures: 2-D Echocardiogram Type of Care/Length of Stay Estimated LOS: Convalescent Care Less Than 30 days Type of Care Needed: Skilled Rehab Potential: Fair Prognosis: Fair Additional Orders/Day of Discharge Day of Discharge: 01/09/21 Dietary and Speech Recommendations Dietitian Recommendations/Changes: Continue Regular diet and 120 ml ensure compact w/ meals for increased nutrition if consumed. Adjust ONS as needed if PO declines at meals. Discharge Plan Admission Admit Date/Time: 12/28/20 23:42 Primary Reason for Your Visit: debility. COVID 19 Attending Provider: Luis Fernando Ortega Primary Care Provider: Harmony William Consulting Providers: Venkatesh Mckay ; Kerrie Srinivasan Discharge Orders/Prescriptions Prescriptions: New acetaminophen [Tylenol] 325 mg Tablet 650 mg PO Q6H PRN PRN (Reason: Pain Score 1-10/Temp > 100.7 F) Qty: 1 RF: 0 Continued ergocalciferol (vitamin D2) 1,250 mcg (50,000 unit) capsule 50,000 unit PO Q7D Qty: 10 RF: 1 levothyroxine 50 mcg tablet 50 mcg PO DAILY Qty: 90 RF: 1 mirtazapine 30 mg tablet 15 mg PO DAILY Qty: 90 RF: 1 rivaroxaban 20 mg tablet 20 mg PO DAILY Qty: 90 RF: 1 topiramate 50 MG tablet 1 tab PO BID RF: 0 sennosides-docusate sodium 1 TABLET tablet 2 tab PO BID PRN PRN (Reason: Constipation) RF: 0 melatonin 3 MG tablet 3 mg PO QHS PRN PRN (Reason: Insomnia) RF: 0 divalproex 250 mg tablet extended release 24 hr 500 mg PO BID RF: 0 atorvastatin 40 mg tablet 40 mg PO QHS Qty: 90 RF: 3 tamsulosin [Flomax] 0.4 mg capsule 0.4 mg PO DAILY Qty: 90 RF: 3 levetiracetam 1,000 mg tablet 1,000 mg PO BID Qty: 60 RF: 0 No Action propranolol 80 mg capsule,extended release 24 hr 80 mg PO DAILY RF: 0 Referrals / Follow Up: Harmony William MD [Primary Care Provider] - Within 1 Week Disposition Disposition (needs filled in before D/C Order can be placed): [facility]
--- NOTE | 2021-01-09 15:38 | DS.PCM_ITS ---
Providers Date of Admission: 12/28/20 Primary Care Physician: Dr. Harmony William MD Consultations 12/30/20 15:41 Consult: Infectious Disease Routine Consulting Provider: Venkatesh Mckay Reason for Consult: Staph bacteremia EMERGENT Consult: No Notified: Yes Date Notified: 12/30/20 Time Notified: 15:42 Method of Notification: Answering Service Method of Consult:: In-Person Comments:: message will be given to Dr Mckay 01/08/21 15:17 Consult: Podiatry Routine Consulting Provider: Kerrie Srinivasan Reason for Consult: toenail care, specifically L 5th toe EMERGENT Consult: No Notified: Yes Date Notified: 01/08/21 Time Notified: 15:23 Method of Notification: Text Reason For Visit: FTT, COVID19 Diagnosis Discharge Diagnosis (1) COVID-19: Status: Acute Code(s): U07.1 - COVID-19 (2) Debility: Status: Acute Code(s): R53.81 - Other malaise Medications at Discharge Home Medications topiramate 1 tab PO BID 04/24/20 melatonin 3 mg PO QHS PRN PRN tab 05/03/20 sennosides-docusate sodium 2 tab PO BID PRN PRN tab 05/03/20 atorvastatin 40 mg tablet 40 mg PO QHS #90 tab 05/10/20 tamsulosin 0.4 mg capsule 0.4 mg PO DAILY #90 cap 05/10/20 levetiracetam 1,000 mg tablet 1,000 mg PO BID #60 tab 07/04/20 ergocalciferol (vitamin D2) 1,250 mcg (50,000 unit) capsule 50,000 unit PO Q7D #10 cap 10/25/20 levothyroxine 50 mcg tablet 50 mcg PO DAILY #90 tab 10/25/20 mirtazapine 30 mg tablet 15 mg PO DAILY #90 tab 10/25/20 rivaroxaban 20 mg tablet 20 mg PO DAILY #90 tab 10/25/20 divalproex 500 mg PO BID 12/29/20 propranolol 80 mg PO DAILY 12/29/20 acetaminophen [Tylenol] 650 mg PO Q6H PRN PRN #1 tab 01/09/21 Hospital Course Operations None Procedures 2-D Echocardiogram Summary of Care Provided Minutes Spent on Discharge: 32 Hospital Course: 1. Adult failure to thrive This is an male with Parkinson's disease who has contracted COVID-19. Per sister, patient is normally independent. PT OT evaluate and treat Patient may require [facility] facility. Expressed to the patient as well as his family member that there may not be any nearby facilities excepting COVID-19 patients. The options would be that he have to go somewhere else that accepts COVID-19, pending if there is lack of bed availability he may need to wait until he is out of isolation where he could go home or go to a facility and pay [id number]. Patient was finally accepted today and will be discharged to [place] in stable condition. 2. COVID-19 pneumonia Patient is vaccinated Onset was 12/26, as of right now,per ID, pt to quarantine through the since oxygen dropped down to 93% at one point. completed remd, on dex through 01/09 3. Parkinson's disease Complicates his overall care and recovery Patient is more debilitated from Covid but also his underlying Parkinson's Treatment for Parkinson's at present 4. Seizure disorder Continue with divalproex and levetiracetam No recent seizure 5. BPH Continue with tamsulosin 6. History of VTE Continue with rivaroxaban 7. VTE prophylaxis: Not indicated as patient is already anticoagulated 8. CODE STATUS: Addressed with the patient. Patient wished to be full code. Weight / BMI Weight Weight: 62.3 kg Body Mass Index (BMI) 20.2 ABG / Lab / Microbiology Data Result Diagrams: 01/05/21 05:23 01/05/21 05:23 Microbiology: Microbiology 12/28/20 22:25 Blood Culture (Wb) - Anticubital Right Bacteria Detection (PCR) - Final 12/28/20 22:25 Blood Culture (Wb) - Anticubital Right Blood Culture - Final Presumptive Micrococcus spp. 12/28/20 23:00 Blood Culture (Wb) - Left Wrist Blood Culture - Final No growth in 5 days. 12/28/20 22:05 Urine, Catheterized Urine Culture - Final Culture exhibits no growth. 12/28/20 22:30 Nasal Secretion SARS-CoV-2 Antigen (Rapid) - Final SARS-CoV-2 (COVID 19) Meaningful Use Info Meaningful Use Diagnoses (Choose all that apply): None applicable Discharge Plan Admission Admit Date/Time: 12/28/20 23:42 Primary Reason for Your Visit: debility. COVID 19 Attending Provider: Luis Fernando Ortega Primary Care Provider: Harmony William Consulting Providers: Venkatesh Mckay ; Kerrie Srinivasan Discharge Orders/Prescriptions Prescriptions: New acetaminophen [Tylenol] 325 mg Tablet 650 mg PO Q6H PRN PRN (Reason: Pain Score 1-10/Temp > 100.7 F) Qty: 1 RF: 0 Continued ergocalciferol (vitamin D2) 1,250 mcg (50,000 unit) capsule 50,000 unit PO Q7D Qty: 10 RF: 1 levothyroxine 50 mcg tablet 50 mcg PO DAILY Qty: 90 RF: 1 mirtazapine 30 mg tablet 15 mg PO DAILY Qty: 90 RF: 1 rivaroxaban 20 mg tablet 20 mg PO DAILY Qty: 90 RF: 1 topiramate 50 MG tablet 1 tab PO BID RF: 0 sennosides-docusate sodium 1 TABLET tablet 2 tab PO BID PRN PRN (Reason: Constipation) RF: 0 melatonin 3 MG tablet 3 mg PO QHS PRN PRN (Reason: Insomnia) RF: 0 divalproex 250 mg tablet extended release 24 hr 500 mg PO BID RF: 0 atorvastatin 40 mg tablet 40 mg PO QHS Qty: 90 RF: 3 tamsulosin [Flomax] 0.4 mg capsule 0.4 mg PO DAILY Qty: 90 RF: 3 levetiracetam 1,000 mg tablet 1,000 mg PO BID Qty: 60 RF: 0 No Action propranolol 80 mg capsule,extended release 24 hr 80 mg PO DAILY RF: 0 Referrals / Follow Up: Harmony William MD [Primary Care Provider] - Within 1 Week Disposition Disposition (needs filled in before D/C Order can be placed): Group Home Facility Charges/Coding Visit Charges Inpatient E&M: 75913 Disch Hosp
--- NOTE | 2021-01-09 16:30 | CASEMGMT ---
Addendum entered by Christiane Lemus 01/09/21 20:06: GIORGI did place a call to pt's CM Sheryl Pickard at [facility] and left message updating her on discharge to [facility]. GIORGI faxed discharge paperwork to Sheryl. Original Note: Social Work Note SW checked [facility] website, pt has been rule out by state, pt can discharge to [facility] today. GIORGI updated physician. GIORGI faxed completed discharge paperwork to [facility] including transfer to extended care facility, signed medication list, any scripts, COVID tool, and PAS/RR. Original in SNF folder and copy on pt's chart. GIORGI spoke with RN. Pt to transport via wheelchair van. GIORGI accessed trip assist and arranged transportation via wheelchair van for 6:00pm. Transportation form completed and placed on SNF folder and copy on pt's chart. GIORGI updated RN on transportation time who will update pt. GIORGI placed a call to Melany at [facility] and updated her on determination from the state, discharge, and transportation time. Melany states understanding. GIORGI placed a call to pt's MARK Estrada and updated her on discharge and transportation time to [facility]. Natalie states understanding. Plan: [facility] skilled under PAS/RR with physician's transporting pt via wheelchair van at 6:00pm Christiane Lemus WHEEL ADJUSTER, CAR WASH MANAGER
[2021-01-09] MEDS: Rivaroxaban 20 MG Tablet PO (16:42)
[2021-01-09 16:43] VITALS: BP 95/71; PULSE 96; RESP 16; TEMP 36.9; O2SAT 97
--- NOTE | 2021-01-09 17:48 | NURSING ---
Addendum entered by Dottie Durand 01/09/21 19:33: attempted again prior to this RN leaving to call report to [facility] with no answer. Addendum entered by Dottie Durand 01/09/21 18:17: physicians wheelchair here to provide transportation to [facility]. have attempted twice more to call report with no response on the nursing extension. Original Note: have made multiple attempts to call report to [facility] starting at 1700. no answer and the nurse extension continues to ring. will attempt again prior to pt DC
== END 2021-01-09 18:20 | disposition skilled nursing facility (03) ==
LOC: ED 23:29 → MS3 12-29 01:59
PROVIDERS: Internal Medicine; Internal Medicine Infectious Disease; Emergency Provider Emergency Medicine; PCP Internal Medicine
DX: U07.1 COVID-19 (principal); R62.7 Adult failure to thrive; G20 Parkinson's disease; J12.82 Pneumonia due to coronavirus disease 2019; G40.909 Epilepsy, unspecified, not intractable, without status epilepticus; N40.0 Benign prostatic hyperplasia without lower urinary tract symptoms; E78.5 Hyperlipidemia, unspecified; F17.220 Nicotine dependence, chewing tobacco, uncomplicated; E03.9 Hypothyroidism, unspecified; I10 Essential (primary) hypertension; R41.89 Other symptoms and signs involving cognitive functions and awareness; E86.0 Dehydration; D69.6 Thrombocytopenia, unspecified; D53.9 Nutritional anemia, unspecified; F32.A Depression, unspecified; Z86.718 Personal history of other venous thrombosis and embolism; Z79.899 Other long term (current) drug therapy; Z79.890 Hormone replacement therapy; Z79.01 Long term (current) use of anticoagulants; Z68.20 Body mass index [BMI] 20.0-20.9, adult; B35.1 Tinea unguium; M79.675 Pain in left toe(s); M79.674 Pain in right toe(s); R60.0 Localized edema
CPT/HCPCS: 36415; 71045; 80048; 80053; 81001; 83605; 83735; 84484; 85025; 85027; 87040; 87086; 87149; 87426; 93005; 93306; 96361; 96365; 96366; 97110; 97161; 97166; 97530; 97535; 97803; 99218; 99285; J7030; J7040; J7050; J7120; A4216; G0378

== ENCOUNTER → 2022-09-23 | Outpatient (CLI) | payer MEDICARE, MEDICAID, SELFPAY ==
[2022-09-23 16:54] LABS: Absolute Lymphocyte Count 2.05 X10^3/uL (0.83-4.51); Absolute Neutrophil Count 5.3 X10^3/uL (2.0-7.7); Basophil# 0.05 X10^3/uL; Basophil% 0.6 % (0-1); Eosinophil# 0.05 X10^3/uL; Eosinophils% 0.6 % (0-5); Hemoglobin 13.6 g/dL (13.0-16.5); Lymphocyte # 2.05 X10^3/ul (0.83-4.51); Lymphocyte % 24.1 % (19-41); Mean Corp Hgb Conc 30.9 g/dL (32-36); Mean Corpuscular Hgb 29.2 pg (27.0-32.0); Mean Corpuscular Volume 94.6 fL (80-94); Mean Platelet Vol. 9.9 fl (6.2-12.0); Monocyte# 1.01 X10^3/uL; Monocyte% 11.9 % (0-10); NRBC Flagged by Analyzer 0 % (0-5); Neutrophil # 5.31 X10^3/uL (2.7-7.7); Neutrophil % 62.3 % (47-70); Platelet Count 132 K/mm3 (150-450); RBC Distribution Width CV 13.2 % (11.6-14.6); RBC Distribution Width SD 45.9 fl (35.1-43.9); Red Blood Count 4.65 M/mm3 (4.6-6.2); White Blood Count 8.5 K/mm3 (4.4-11.0)
[2022-09-23 17:29] LABS: ALB/GLOB Ratio 0.8 RATIO (0.9-2.4); AST(SGOT) 12 U/L (15-37); Alanine Aminotransfer ALT/SGPT 11 U/L (16-61); Albumin, Serum 3.3 g/dL (3.2-5.0); Alkaline Phosphatase 48 U/L (45-117); Anion Gap 8 (5-15); BUN 17 mg/dL (7-18); BUN/Creat Ratio 15.9 RATIO (10-20); Calcium,Total 9.5 mg/dL (8.5-10.1); Chloride 115 mmol/L (98-107); Cholesterol 139 mg/dL (200); Creatinine, Serum 1.07 mg/dL (0.70-1.30); EST Glomerular Filtration Rate 74 mL/min (>60); Est Glom Filt Rate - Afr Amer 90 mL/min (>60); Globulin 4.4 g/dL (2.2-4.2); Glucose 121 mg/dL (74-106); High Density Lipoprotein 59 mg/dL; PSA,Total - Annual Screen 1.29 ng/mL (0.00-4.00); Potassium 3.1 mmol/L (3.5-5.1); Protein, Total 7.7 g/dL (6.4-8.2); Sodium Level 145 mmol/L (136-145); Thyroid Stim Hormone (TSH) 1.66 uIU/mL (0.358-3.74); Triglycerides 111 mg/dL; Very Low Density Lipoprotein 22 mg/dL (5-40)
[2022-09-24 06:41] LABS: Valproic Acid (Depakene) Level 128 ug/mL (50-100)
== END | disposition home or self-care (01) ==
LOC: BIMLAB 15:31
PROVIDERS: PCP Internal Medicine; Visit Provider Internal Medicine
DX: E03.9 Hypothyroidism, unspecified (principal); G40.909 Epilepsy, unspecified, not intractable, without status epilepticus; N40.0 Benign prostatic hyperplasia without lower urinary tract symptoms
CPT/HCPCS: 36415; 80053; 80061; 80164; 84153; 84443; 85025; G0103

== ENCOUNTER 2022-10-08 05:20 | Emergency (ER) | payer MEDICARE, MEDICAID, SELFPAY ==
[2022-10-08] VITALS (19 sets, daily range): BP systolic 104–124; BP diastolic 63–105; PULSE 88–123; RESP 9–23; TEMP 36.6; O2SAT 69–99; BMI 25.4
--- NOTE | 2022-10-08 05:26 | CT_ITS ---
EXAM: CT HEAD WITHOUT INTRAVENOUS CONTRAST CLINICAL INDICATION: seizure TECHNIQUE: Multiple axial images were obtained of the head without intravenous contrast. This CT exam was performed using one or more of the following dose reduction techniques: automated exposure control, adjustment of the mA and/or kV according to patient size, and/or use of iterative reconstruction technique. RADIATION DOSE: CTDIvol = 44.99 mGy, DLP = 829.85 mGy-cm COMPARISON: 12/27/2017. FINDINGS: BRAIN AND EXTRA-AXIAL SPACES: Severe generalized atrophy. Mild low density bilaterally in the deep white matter. No intra- or extra-axial hemorrhage. No evidence of acute infarct. No intracranial mass or mass effect. There is preservation of the mckoy/white matter interface. Posterior fossa structures are unremarkable. No hydrocephalus. Basal cisterns are patent. BONES/JOINTS: Unremarkable. No discrete lytic or blastic abnormalities. SINUSES: Unremarkable as visualized. Clear. MASTOID AIR CELLS: Unremarkable. Clear. ORBITS: Visualized globes, extraocular muscles, optic nerves and retrobulbar fat appear unremarkable. CT/Brain/Head without Contrast IMPRESSION: Severe generalized atrophy. Mild low density bilaterally in the deep white matter. This likely represents chronic small vessel ischemic changes in the deep white matter. Electronically Signed: Stevo De Souza MD at 6:23 EDT ,
--- NOTE | 2022-10-08 05:28 | EDS_ITS ---
HPI History of Present Illness Chief Complaint: Seizure Detail of Chief Complaint: Seizure Informant: patient and family Narrative Narrative: Patient presents with seizure that occurred this morning. Caregiver called EMS after patient had seizure lasting 8 to 10 minutes. Patient with known seizure history and on Depakote and Keppra. Patient's speech difficult to understand. He denies chest pain or head pain. He denies recent illness. He has been compliant with his medications. [facility] Medical History (Updated 10/08/22 @ 06:[address] Joselo Soto, DO) Bilateral lower extremity edema Blood clotting disorder Blood transfusion without reported diagnosis BPH (benign prostatic hyperplasia) Compression fx, thoracic spine Deep vein thrombosis (DVT) of left lower extremity Failure to thrive Femur fracture, left HLD (hyperlipidemia) Hypercoagulable state Hypertension Hypokalemia Hypothyroidism Localized edema Multiple falls Nondisplaced fracture of neck of left femur Parkinson disease Seizure disorder Tachycardia Toe pain, left Toe pain, right Home Medications topiramate 50 mg tablet 1 tab PO BID 04/24/20 [History Last Taken Unknown] levothyroxine 50 mcg tablet 50 mcg PO DAILY THYROID #90 tabs 10/25/20 [Rx Last Taken Unknown] mirtazapine 30 mg tablet 15 mg (1/2 x 30 mg) PO DAILY mood #90 tabs 10/25/20 [Rx Last Taken Unknown] atorvastatin 40 mg tablet 20 mg (1/2 x 40 mg) PO DAILY cholesterol #90 tabs 09/08/22 [Rx Last Taken Unknown] levetiracetam 1,000 mg tablet 500 mg (1/2 x 1,000 mg) PO BID SEIZURES #60 tabs 09/08/22 [Rx Last Taken Unknown] tamsulosin 0.4 mg capsule (Flomax) 0.4 mg PO QHS URINE #90 caps 09/08/22 [Rx Last Taken Unknown] divalproex 250 mg tablet,delayed release 250 mg PO DAILY #30 tabs 09/16/22 [Rx Last Taken Unknown] divalproex 250 mg tablet,delayed release 500 mg (2 x 250 mg) PO QHS #60 tabs 09/16/22 [Rx Last Taken Unknown] rivaroxaban 20 mg tablet 20 mg PO DAILY #30 tabs 09/16/22 [Rx Last Taken Unknown] blood pressure monitor #1 ea 09/23/22 [Rx Last Taken Unknown] propranolol 60 mg capsule,24 hr,extended release 60 mg PO DAILY #90 caps 09/23/22 [Rx Last Taken Unknown] compress.stocking,knee,reg,lrg #2 ea 09/24/22 [Rx Last Taken Unknown] potassium chloride 20 mEq tablet,extended release 20 meq PO BID #60 tabs 09/24/22 [Rx Last Taken Unknown] Allergy/AdvReac Type Severity Reaction Status Date / Time No Known Allergies Allergy Verified 10/08/22 05:21 Family History Mother Breast cancer Father Mouth cancer Brother Parkinson disease Surgical History History of left hip replacement History of orthopedic surgery S/P hip replacement Social History Smoking Status: Never smoker Smokeless tobacco user: chewing tobacco alcohol intake: never substance use type: does not use what type of physical activity do you participate in: none ROS ROS ED Review of Systems ROS Unobtainable: other Constitutional Constitutional ED: Reports lethargy; Denies chills, fever(s), sweats or weight loss Eyes Eyes: Denies blurry vision, change in vision or diplopia ENT ENT ED: Denies rhinorrhea or sore throat Cardiovascular Cardiovascular: Denies chest pain, orthopnea or racing heartbeat Respiratory/Chest Respiratory/Chest: Denies cough, dyspnea, dyspnea on exertion, orthopnea or sputum Gastrointestinal Gastrointestinal: Denies abdominal pain, diarrhea, nausea or vomiting Genitourinary Genitourinary ED: Denies dysuria, hematuria or urinary frequency Musculoskeletal Musculoskeletal: Denies arthralgias, back pain, myalgias or neck pain Integumentary Denies abscess, Abrasions or rash Neurologic Neurologic: Reports other Details: Seizure ; Denies headache(s) or weakness Psychiatric Psychiatric: Denies anxiety, depression or suicidal thoughts Endocrine Endocrinology: Denies polydipsia, polyphagia or polyuria Hematologic/Lymphatic Hematologic/Lymphatic: Denies easy bleeding, easy bruising or lymphadenopathy Allergic/Immunologic Allergic/Immunologic ED: Denies mouth swelling, tongue swelling or urticaria EXAM Physical Exam Const Vital Signs: 10/08/22 05:25 Temperature 97.8 F Temperature Source Temporal Pulse Rate 94 Respiratory Rate 16 Blood Pressure 118/63 Blood Pressure Mean 81 Pulse Ox 99 Positive well nourished and well developed General Appearance ED: well developed and NAD HEENT Reports TM's clear and moist mucous membranes normocephalic and atraumatic; Negative for trauma or tenderness Tympanic Membrane ED: Yes TM's clear Eyes PERRL and EOMs intact bilaterally General Eye ED: Negative for pale conjunctiva or scleral icterus Neck no lymphadenopathy, supple and no JVD General: Negative for tenderness Chest Wall inspection of chest normal and palpation of chest normal Chest: Negative for tenderness Resp normal respiratory effort and clear to auscultation bilaterally Effort and Inspection: Negative for respiratory distress or pain with movement Auscultation: Negative for rhonchi, wheezes or diminished lung sounds Cardio regular rate, regular rhythm, S1 normal heart sound, S2 normal heart sound and no murmurs Peripheral Pulses: pulses 2+ throughout GI normal to inspection, nondistended, normoactive bowel sounds, soft to palpation, non-tender, non-distended and no masses Back/Spine no CVA tenderness and no thoracic nor lumbar tenderness Extremity normal to inspection General Extremety ED: Negative for edema General Extremity: Negative for edema Neuro oriented x3, CN's II-XII intact bilaterally, no sensory deficits noted and gait normal Neuro Narrative: Patient has a fine tremor related to his Parkinson's. Sensorium / Orientation: awake, alert, oriented to person, oriented to place and oriented to time Motor Exam: strength 5/5 throughout and strength abnormal Psych mental status grossly normal Skin no rashes or lesions noted and no wounds MDM MDM MDM Narrative Medical decision making narrative: Patient presents with seizure witnessed by caregiver. Patient has known seizure history and history of Parkinson's. IV line established. Patient was given Keppra [address] scan of the brain without contrast was ordered as patient is on anticoagulation with rivaroxaban. Basic lab work obtained showed a white count of 11.8 with hemoglobin 13.6 and platelet count 200. Chemistries unremarkable. LFTs unremarkable. Urinalysis was normal. While in department on monitor patient does have a tremor and intermittently the monitor would parts picker what looked like V. tach however patient was completely asymptomatic and therefore I ordered an EKG. EKG obtained showed a sinus rhythm with a rate of 92 bpm while on the monitor at the same time that the EKG was being performed the monitor which show what looked like V. tach which I suspect is artifact as the EKG machine was showing a sinus rhythm. Patient remained asymptomatic throughout. Lab Data Attestation: I reviewed the patient's lab results. Labs: Laboratory Results - last 24 hr 10/08/22 10/08/22 05:30 05:35 WBC 11.8 H RBC 4.53 L Hgb 13.6 Hct 42.8 MCV 94.5 H MCH 30.0 MCHC 31.8 L RDW Std Deviation 47.3 H RDW Coeff of Colleen 13.6 Plt Count 200 MPV 9.6 Immature Gran % (Auto) 0.400 Neut % (Auto) 50.7 Lymph % (Auto) 26.7 [place] % (Auto) 19.3 H Eos % (Auto) 2.1 Baso % (Auto) 0.8 Absolute Neuts (auto) 6.0 Absolute Lymphs (auto) 3.15 Nucleated RBC % 0 Differential Comment SCANNED Diff Path Review June foll Sodium 141 Potassium 3.9 Chloride 108 H Carbon Dioxide 22.0 Anion Gap 11 BUN 22 H Creatinine 1.03 Estim Creat Clear Calc 64.68 Est GFR (MDRD) Af Amer 94 Est GFR (MDRD) Non-Af 78 BUN/Creatinine Ratio 21.4 H Glucose 118 H Calcium 9.5 Total Bilirubin 0.50 AST 10 L ALT 10 L Alkaline Phosphatase 48 Total Protein 8.2 Albumin 3.4 Globulin 4.8 H Albumin/Globulin Ratio 0.7 L Urine Color Yellow Urine Clarity Clear Urine pH 6.5 Ur Specific Hammond 1.015 Urine Protein Negative Urine Glucose (UA) Normal Urine Ketones 15 H Urine Occult Blood Negative Urine Nitrite Negative Urine Bilirubin Negative Urine Urobilinogen 4 H Ur Leukocyte Esterase Negative Urine RBC 0 SEEN Urine WBC 0 SEEN Ur Squamous Epith Cells 0 SEEN Urine Bacteria RARE Urine Mucus 0 SEEN Valproic Acid 91 Radiography Diagnostic Testing: Clinical Impression(s) from Imaging Studies Brain CT 10/08/22 05:26 IMPRESSION: Severe generalized atrophy. Mild low density bilaterally in the deep white matter. This likely represents chronic small vessel ischemic changes in the deep white matter. Electronically Signed: Stevo De Souza MD at 6:23 EDT , EKG Initial EKG: Attestation: I personally reviewed and interpreted this EKG as follows: Comments: Sinus rhythm with a ventricular rate of 92 bpm with no acute ST segment changes Discharge Plan Triage Chief Complaint: Seizure ED Provider: Joselo Soto Dx/Rx/DC Orders Clinical Impression: Seizure Instructions: ED Seizure, Recurrent (Adult) Prescriptions: No Action levothyroxine 50 mcg tablet 50 mcg PO DAILY Qty: 90 1RF mirtazapine 30 mg tablet 15 mg PO DAILY Qty: 90 1RF (DME) blood pressure monitor Kit See Rx Instructions .MEDSUPPLY Qty: 1 0RF Rx Instructions: Check blood pressure daily for hypertension I10 propranolol 60 mg capsule,extended release 24 hr 60 mg PO DAILY Qty: 90 3RF topiramate 50 MG tablet 1 tab PO BID levetiracetam 1,000 mg tablet 500 mg PO BID Qty: 60 0RF atorvastatin 40 mg tablet 20 mg PO DAILY Qty: 90 3RF tamsulosin [Flomax] 0.4 mg capsule 0.4 mg PO QHS Qty: 90 3RF divalproex 250 mg tablet,delayed release (DR/EC) 250 mg PO DAILY Qty: 30 4RF divalproex 250 mg tablet,delayed release (DR/EC) 500 mg PO QHS Qty: 60 4RF rivaroxaban 20 mg tablet 20 mg PO DAILY Qty: 30 4RF Rx Instructions: TAKE 1 TABLET BY MOUTH DAILY potassium chloride 20 mEq tablet extended release 20 meq PO BID Qty: 60 1RF (DME) compress.stocking,knee,reg,lrg Misc See Rx Instructions .MEDSUPPLY Qty: 2 1RF Rx Instructions: wear daily for venous insufficiency 20-30 mmHg Primary Care Provider: Harmony William Referrals: Harmony William MD [Primary Care Provider] - 3-5 Days Kris Brizuela MD [Non-Staff -Ordering Privileges] - 3-5 Days Disposition Disposition: Home, Self Care
[2022-10-08] MEDS: levETIRAcetam IV 1,000 MG/100 ML BAG 400 MG IV (05:47)
[2022-10-08 05:48] LABS: Mucous, Urine 0 SEEN /hpf (<or=2+); Red Blood Cells-Urine 0 SEEN /hpf (0-5); Squamous Epithelial Cells - UA 0 SEEN /hpf (0-5); White Blood Cells 0 SEEN /hpf (0-5)
[2022-10-08 05:49] LABS: Absolute Lymphocyte Count 3.15 X10^3/uL (0.83-4.51); Basophil# 0.09 X10^3/uL; Basophil% 0.8 % (0-1); Eosinophil# 0.25 X10^3/uL; Eosinophils% 2.1 % (0-5); Hematocrit 42.8 % (40-54); Hemoglobin 13.6 g/dL (13.0-16.5); Lymphocyte # 3.15 X10^3/ul (0.83-4.51); Lymphocyte % 26.7 % (19-41); Mean Corp Hgb Conc 31.8 g/dL (32-36); Mean Corpuscular Volume 94.5 fL (80-94); Mean Platelet Vol. 9.6 fl (6.2-12.0); Monocyte# 2.28 X10^3/uL; Monocyte% 19.3 % (0-10); NRBC Flagged by Analyzer 0 % (0-5); Neutrophil # 5.98 X10^3/uL (2.7-7.7); Neutrophil % 50.7 % (47-70); POSITIVE DIFFERENTIAL YES; Platelet Count 200 K/mm3 (150-450); RBC Distribution Width CV 13.6 % (11.6-14.6); RBC Distribution Width SD 47.3 fl (35.1-43.9); Red Blood Count 4.53 M/mm3 (4.6-6.2); White Blood Count 11.8 K/mm3 (4.4-11.0)
[2022-10-08 05:50] LABS: Color, Urine Yellow (Yellow); Glucose, Dipstick Normal (Normal); Ketone-Dipstick 15 mg/dl (Negative); Leukocyte Esterase-Dipstick Negative /ul (Negative); Nitrite-Dipstick Negative (Negative); Occult Blood-Urine Negative /ul (Negative); Protein-Dipstick Negative (Negative); Specific Gravity, Urine 1.015 (1.002-1.030); Urine Bilirubin Dipstick Negative (Negative); Urine Clarity Clear (Clear); Urine Urobilinogen 4 mg/dl (Normal); Urine pH 6.5 (5.0 - 8.0)
[2022-10-08 05:50] LABS: Differential Indicated SCAN CRITERIA MET
[2022-10-08 06:02] LABS: Bacteria RARE /hpf (None Seen)
--- NOTE | 2022-10-08 06:06 | EKG12_ITS ---
Test Reason : seizure Blood Pressure : / mmHG Vent. Rate : 092 BPM Atrial Rate : 092 BPM P-R Int : 146 ms QRS Dur : 086 ms QT Int : 348 ms P-R-T Axes : 070 081 033 degrees QTc Int : 430 ms Normal sinus rhythm Normal ECG ARTIFACT Confirmed by KAREN LEAVITT, CRYSTAL ([id number]), editorial assistant LATISHA BRAUN ([id number]) on 12/02/2022 1:39:50 PM Referred By: Charles Confirmed By:CRYSTAL JONES MD
[2022-10-08 06:09] LABS: Valproic Acid (Depakene) Level 91 ug/mL (50-100)
[2022-10-08 06:11] LABS: ALB/GLOB Ratio 0.7 RATIO (0.9-2.4); AST(SGOT) 10 U/L (15-37); Alanine Aminotransfer ALT/SGPT 10 U/L (16-61); Albumin, Serum 3.4 g/dL (3.2-5.0); Alkaline Phosphatase 48 U/L (45-117); Anion Gap 11 (5-15); BUN 22 mg/dL (7-18); BUN/Creat Ratio 21.4 RATIO (10-20); Calcium,Total 9.5 mg/dL (8.5-10.1); Chloride 108 mmol/L (98-107); Creatinine, Serum 1.03 mg/dL (0.70-1.30); EST Glomerular Filtration Rate 78 mL/min (>60); Est Glom Filt Rate - Afr Amer 94 mL/min (>60); Estimated Creatinine Clearance 64.68 ml/min; Globulin 4.8 g/dL (2.2-4.2); Glucose 118 mg/dL (74-106); Potassium 3.9 mmol/L (3.5-5.1); Protein, Total 8.2 g/dL (6.4-8.2); Sodium Level 141 mmol/L (136-145)
[2022-10-08 06:36] LABS: Differential Comment SCANNED
[2022-10-08 07:29] LABS: Troponin-I HS 4 pg/mL (3.0-78.0)
[2022-10-08 14:38] LABS: Pathologist Review Reviewed
== END 2022-10-08 08:15 | disposition home or self-care (01) ==
PROVIDERS: Emergency Provider Emergency Medicine; PCP Internal Medicine; Visit Provider Emergency Medicine
DX: G40.909 Epilepsy, unspecified, not intractable, without status epilepticus (principal); G20 Parkinson's disease; I10 Essential (primary) hypertension; E78.5 Hyperlipidemia, unspecified; Z79.01 Long term (current) use of anticoagulants; Z79.890 Hormone replacement therapy; Z79.899 Other long term (current) drug therapy
CPT/HCPCS: 70450; 80053; 80164; 81001; 84484; 85025; 93005; 96365; 99284; A4216

== ENCOUNTER 2022-10-17 18:42 | Inpatient (IN) | payer MEDICARE, MEDICAID, SELFPAY ==
[2022-10-17 18:43] VITALS: BP 95/65; PULSE 84; RESP 16; TEMP 36.8; O2SAT 96
--- NOTE | 2022-10-17 19:06 | EX.ED.DYSGE1 ---
HPI History of Present Illness Chief Complaint: Other, Pain/Inj Detail of Chief Complaint: Left facial swelling. Dental discomfort. prison placement. Informant: patient and friend Onset/Context/Timing Onset: Days Context: Gradual Onset Timing: Continuous Current Severity: Mild Maximum Severity: Mild Narrative Narrative: 62-year-old male has a history of seizure disorder, chronic lower extremity edema, clotting disorder prior DVT on blood thinner. Patient was seen in the emergency department about 8 days ago for a seizure. Had labs at that time are unremarkable. The last 2 days he has developed left facial swelling and some dental pain. He previously was in a shelter. Family friend took him out of the shelter 6 months ago to a year and she does not feel that she is capable of caring for him. He is not ambulatory and she does not have enough help. She spoke with her primary care physician and when to come to the emergency department to be admitted for shelter placement. Prior similar symptoms: Yes Recent Illness/Hospitalization: No PFSH PFS Medical History Bilateral lower extremity edema Blood clotting disorder Blood transfusion without reported diagnosis BPH (benign prostatic hyperplasia) Compression fx, thoracic spine Deep vein thrombosis (DVT) of left lower extremity Failure to thrive Femur fracture, left HLD (hyperlipidemia) Hypercoagulable state Hypertension Hypokalemia Hypothyroidism Localized edema Multiple falls Nondisplaced fracture of neck of left femur Parkinson disease Seizure disorder Tachycardia Toe pain, left Toe pain, right Home Medications divalproex 250 mg tablet,delayed release 250 mg PO DAILY #30 tabs 09/16/22 [Rx Last Taken Unknown] divalproex 250 mg tablet,delayed release 500 mg (2 x 250 mg) PO QHS #60 tabs 09/16/22 [Rx Last Taken Unknown] rivaroxaban 20 mg tablet 20 mg PO DAILY #30 tabs 09/16/22 [Rx Last Taken Unknown] blood pressure monitor #1 ea 09/23/22 [Rx Last Taken Unknown] propranolol 60 mg capsule,24 hr,extended release 60 mg PO DAILY #90 caps 09/23/22 [Rx Last Taken Unknown] compress.stocking,knee,reg,lrg #2 ea 09/24/22 [Rx Last Taken Unknown] potassium chloride 20 mEq tablet,extended release 20 meq PO BID #60 tabs 09/24/22 [Rx Last Taken Unknown] atorvastatin 40 mg tablet 20 mg (1/2 x 40 mg) PO DAILY cholesterol #45 tabs 10/08/22 [Rx Last Taken Unknown] levetiracetam 1,000 mg tablet 500 mg (1/2 x 1,000 mg) PO BID SEIZURES #90 tabs 10/08/22 [Rx Last Taken Unknown] levothyroxine 50 mcg tablet 50 mcg PO DAILY THYROID #90 tabs 10/08/22 [Rx Last Taken Unknown] mirtazapine 30 mg tablet 15 mg (1/2 x 30 mg) PO DAILY mood #45 tabs 10/08/22 [Rx Last Taken Unknown] tamsulosin 0.4 mg capsule (Flomax) 0.4 mg PO QHS URINE #90 caps 10/08/22 [Rx Last Taken Unknown] topiramate 50 mg tablet 50 mg PO BID #60 tabs 10/08/22 [Rx Last Taken Unknown] Allergy/AdvReac Type Severity Reaction Status Date / Time No Known Allergies Allergy Verified 10/08/22 05:21 Family History Mother Breast cancer Father Mouth cancer Brother Parkinson disease Surgical History History of left hip replacement History of orthopedic surgery S/P hip replacement Social History Smoking Status: Current every day smoker tobacco type: smokeless tobacco Smokeless tobacco user: chewing tobacco alcohol intake: never substance use type: does not use what type of physical activity do you participate in: none ROS ROS ED ROS Narrative Denies recent illness. Left facial swelling for 2 days dental pain. Review of Systems ROS Unobtainable: Denies due to encephalopathy Constitutional Constitutional ED: Denies chills or fever(s) Eyes Eyes: Denies blurry vision ENT ENT ED: Denies ear pain Cardiovascular Cardiovascular: Denies chest pain Respiratory/Chest Respiratory/Chest: Denies cough or dyspnea Gastrointestinal Gastrointestinal: Denies abdominal pain Genitourinary Genitourinary ED: Denies dysuria or hematuria Musculoskeletal Musculoskeletal: Denies arthralgias or back pain Integumentary Denies abscess or Abrasions Neurologic Neurologic: Denies headache(s) Psychiatric Psychiatric: Denies anxiety or depression Endocrine Endocrinology: Denies cold intolerance Hematologic/Lymphatic Hematologic/Lymphatic: Reports none Allergic/Immunologic Allergic/Immunologic ED: Reports mouth swelling; Denies tongue swelling or urticaria EXAM Physical Exam Narrative Exam Narrative: 62-year-old male vital signs are stable afebrile. He does not look septic toxic. He is in no distress. Initial blood pressure 95/65. H EENT exam mild swelling of his lower lip. Very poor dentition. Multiple missing teeth. Gingivitis. No abscess. Mild left facial and jaw swelling. Pupils round reactive light extra motions are intact. Neck nontender no JVD no lymphadenopathy. Lungs clear to auscultation bilaterally. Heart regular rhythm. Abdomen soft nontender. 1+ pitting edema both lower extremities which is chronic. Bilateral lower extremity weakness which is chronic. Neurologically is awake and alert. Answering questions and following commands. Const Vital Signs: 10/17/22 18:43 Temperature 98.2 F Temperature Source Temporal Pulse Rate 84 Respiratory Rate 16 Blood Pressure 95/65 Blood Pressure Mean 75 Pulse Ox 96 Oxygen Delivery Method Room Air Positive well nourished and well developed; Negative for obese, cachectic, contractures or unkempt General Appearance ED: well developed and NAD; Negative for unkempt, cachectic, contractures, cyanotic, diaphoretic or pallor Nutritional Appearance: Negative for cachectic or obese HEENT Reports moist mucous membranes HEENT Narrative: Very poor dentition. Gingivitis. No obvious abscess. Gingival swelling. Left facial swelling. Mild lip swelling. Negative for trauma or tenderness Eyes PERRL and EOMs intact bilaterally General Eye ED: Negative for pale conjunctiva or scleral icterus Neck no lymphadenopathy, supple and no JVD General: Negative for tenderness Lymph Lymphatic: Negative for other Chest Wall inspection of chest normal and palpation of chest normal Chest: Negative for other Resp normal respiratory effort and clear to auscultation bilaterally Effort and Inspection: Negative for retractions Auscultation: Negative for rales, rhonchi or wheezes Cardio regular rate, regular rhythm, S1 normal heart sound, S2 normal heart sound and no murmurs Palpation: Negative for palpable S3 or palpable S4 Rate: Negative for bradycardia GI normal to inspection, nondistended, normoactive bowel sounds, non-tender and no masses Inspection: Negative for abdominal distention Auscultation: normoactive bowel sounds Palpation: soft; Negative for tender or guarding Back/Spine no CVA tenderness General Back: Negative for CVA tenderness Cervical Spine: Negative for cervical spine tenderness Thoracic Spine / Upper Back: Negative for thoracic spinal tenderness Lumbar Spine / Lower Back: Negative for lumbar spinal tenderness Extremity Negative for normal to inspection Extremity Narrative: By lower extremity chronic General Extremety ED: Yes edema General Extremity: edema Neuro Sensorium / Orientation: alert Motor Exam: strength 5/5 throughout Psych mental status grossly normal Appearance: Negative for unkempt Attitude: No agitated Mood & Affect: Negative for depressed, anxious or tearful Skin no rashes or lesions noted and no wounds General Skin Exam: Negative for jaundice or pallor Lesions: No lesion noted Rashes: No rashes noted Trauma: Negative for abrasion Wounds: Negative for wounds noted MDM MDM MDM Narrative Medical decision making narrative: 62-year-old male on chronic anticoagulation for blood clots and clotting disorder, chronic anemia and seizures. Was seen here 8 days ago had unremarkable labs. He has a dental infection with swelling of his gums and left jaw. He will be started on Pen-Vee K for that. He has a caregiver with him that is asked in a be admitted for shelter placement. I already spoke to the hospitalist he will be admitted for shelter placement. History & Record Review Discussion w/independent historian: Patient and Friend Additional record(s) reviewed:: Prior inpatient record, Prior outpatient record, Prior ED visit and Prior labs Discharge Plan Triage Chief Complaint: Other, Pain/Inj ED Provider: Julio C Turpin Dx/Rx/DC Orders Clinical Impression: History of blood clotting disorder, History of seizure, Chronic anticoagulation, Gingivitis, Adult failure to thrive Prescriptions: No Action (DME) blood pressure monitor Kit See Rx Instructions .MEDSUPPLY Qty: 1 0RF Rx Instructions: Check blood pressure daily for hypertension I10 propranolol 60 mg capsule,extended release 24 hr 60 mg PO DAILY Qty: 90 3RF divalproex 250 mg tablet,delayed release (DR/EC) 250 mg PO DAILY Qty: 30 4RF divalproex 250 mg tablet,delayed release (DR/EC) 500 mg PO QHS Qty: 60 4RF rivaroxaban 20 mg tablet 20 mg PO DAILY Qty: 30 4RF Rx Instructions: TAKE 1 TABLET BY MOUTH DAILY potassium chloride 20 mEq tablet extended release 20 meq PO BID Qty: 60 1RF (DME) compress.stocking,knee,reg,lrg Misc See Rx Instructions .MEDSUPPLY Qty: 2 1RF Rx Instructions: wear daily for venous insufficiency 20-30 mmHg atorvastatin 40 mg tablet 20 mg PO DAILY Qty: 45 0RF levetiracetam 1,000 mg tablet 500 mg PO BID Qty: 90 0RF levothyroxine 50 mcg tablet 50 mcg PO DAILY Qty: 90 0RF mirtazapine 30 mg tablet 15 mg PO DAILY Qty: 45 0RF tamsulosin [Flomax] 0.4 mg capsule 0.4 mg PO QHS Qty: 90 0RF topiramate 50 mg tablet 50 mg PO BID Qty: 60 0RF Primary Care Provider: Harmony William Referrals: Hramony William MD [Primary Care Provider] - Disposition Disposition: Acute Care Hospital [facility]
--- NOTE | 2022-10-17 19:14 | HP.PCM.HOS_ITS ---
HPI - General General Date of Admission: 10/17/22 Date of Service: 10/17/22 Chief Complaint: Failure to thrive, debility HPI Narrative MIKE ADAMS is a 62 M is a 62-year-old male with history of seizure disorder with impaired cognition, poor mobility at baseline, DVT on Xarelto, hypothyroidism, hypertension and BPH who presented to [facility] ED on 10/17/2022 with failure to thrive. Patient seen at bedside, caregiver thuy barragan. Patient sitting in wheelchair by side of bed. Leaned over at the chest looking down to the ground for most of my interview. Did make eye contact on questioning and appeared to understand what I was saying, but had essentially no verbal responses. Did not appear to be in any acute distress. Most of the history was obtained from the caregiver, who is patient's family friend. Patient previously lived in a retirement for about 1 year. However, caregiver was upset by the care he was receiving and brought him back to her house. Patient has now been at her house for between 6 months to 1 year. He has continued to have cognitive decline as well as physical slowing over that time. She works full-time and is unable to take care of him well at home. She denies any acute changes for patient. States he is able to move slowly around the home with his walker. Patient does wear depends as he is not able to get to the bathroom easily. Vitals are stable on admission. All labs are currently pending. No imaging was done in the ED. [facility] Medical History Bilateral lower extremity edema Blood clotting disorder Blood transfusion without reported diagnosis BPH (benign prostatic hyperplasia) Compression fx, thoracic spine Deep vein thrombosis (DVT) of left lower extremity Failure to thrive Femur fracture, left HLD (hyperlipidemia) Hypercoagulable state Hypertension Hypokalemia Hypothyroidism Localized edema Multiple falls Nondisplaced fracture of neck of left femur Parkinson disease Seizure disorder Tachycardia Toe pain, left Toe pain, right Home Medications divalproex 250 mg tablet,delayed release 250 mg PO DAILY #30 tabs 09/16/22 [Rx Last Taken Unknown] divalproex 250 mg tablet,delayed release 500 mg (2 x 250 mg) PO QHS #60 tabs 09/16/22 [Rx Last Taken Unknown] rivaroxaban 20 mg tablet 20 mg PO DAILY #30 tabs 09/16/22 [Rx Last Taken Unknown] blood pressure monitor #1 ea 09/23/22 [Rx Last Taken Unknown] propranolol 60 mg capsule,24 hr,extended release 60 mg PO DAILY #90 caps 09/23/22 [Rx Last Taken Unknown] compress.stocking,knee,reg,lrg #2 ea 09/24/22 [Rx Last Taken Unknown] potassium chloride 20 mEq tablet,extended release 20 meq PO BID #60 tabs 09/24/22 [Rx Last Taken Unknown] atorvastatin 40 mg tablet 20 mg (1/2 x 40 mg) PO DAILY cholesterol #45 tabs 10/08/22 [Rx Last Taken Unknown] levetiracetam 1,000 mg tablet 500 mg (1/2 x 1,000 mg) PO BID SEIZURES #90 tabs 10/08/22 [Rx Last Taken Unknown] levothyroxine 50 mcg tablet 50 mcg PO DAILY THYROID #90 tabs 10/08/22 [Rx Last Taken Unknown] mirtazapine 30 mg tablet 15 mg (1/2 x 30 mg) PO DAILY mood #45 tabs 10/08/22 [Rx Last Taken Unknown] tamsulosin 0.4 mg capsule (Flomax) 0.4 mg PO QHS URINE #90 caps 10/08/22 [Rx Last Taken Unknown] topiramate 50 mg tablet 50 mg PO BID #60 tabs 10/08/22 [Rx Last Taken Unknown] Allergy/AdvReac Type Severity Reaction Status Date / Time No Known Allergies Allergy Verified 10/08/22 05:21 Family History Mother Breast cancer Father Mouth cancer Brother Parkinson disease Surgical History History of left hip replacement History of orthopedic surgery S/P hip replacement Social History Smoking Status: Current every day smoker tobacco type: smokeless tobacco Smokeless tobacco user: chewing tobacco alcohol intake: never substance use type: does not use what type of physical activity do you participate in: none ROS Review of Systems ROS Unobtainable: due to mental condition Vital Signs Vital Signs Vital Signs: 10/17/22 18:43 Temperature 98.2 F Temperature Source Temporal Pulse Rate 84 Respiratory Rate 16 Blood Pressure 95/65 Blood Pressure Mean 75 Pulse Ox 96 Oxygen Delivery Method Room Air Physical Exam Const alert Constitutional Narrative: Essentially nonverbal, sitting in wheelchair at side of bed, making appropriate eye contact, does not appear to be in acute distress. General Appearance: cooperative HEENT normocephalic, head/scalp atraumatic, hearing grossly normal bilaterally and nasal mucous membranes and turbinates normal HEENT Narrative: Has notably very poor dentition with concern for possible dental infection. Eyes PERRL, EOMs intact bilaterally and conjunctivae normal Neck full ROM, no lymphadenopathy and supple Lymph Lymphatic: no lymphadenopathy noted Chest inspection of chest normal Resp normal respiratory effort, normal air movement, no use of accessory muscles and clear to auscultation bilaterally Cardio regular rate, regular rhythm, no murmurs and peripheral pulses 2+ throughout GI normal to inspection, nondistended, normoactive bowel sounds, soft to palpation, non-tender and non-distended Back/Spine normal ROM Extremity normal to inspection, full ROM and no pedal edema Skin no rashes or lesions noted Assessment & Plan Assessment/Plan (1) Adult failure to thrive: PLAN: Plan Patient is a 62-year-old male with history of seizure disorder with impaired cognition, poor mobility at baseline, DVT on Xarelto, hypothyroidism, hypert ension and BPH who presented to [facility] ED on 10/17/2022 with failure to thrive. 1. Failure to thrive, chronic debility Patient was previously in a retirement for about a year. Was taken out by caregiver due to perceived poor care. Has not been home for about 6 months to 1 year, but caregiver states she is unable to take care of him any longer. Caregiver notes no abrupt decline in function, but rather steady decline over time. Patient ambulates with a walker but ambulates very slowly and has had some minor falls recently. He appears to have underlying cognitive delay, possibly due to seizure disorder as noted below. Was essentially nonverbal with me in the room. Was able to make appropriate eye contact. Appeared quite weak. -Admit to inpatient bed on MedSurg floor. PT/OT/case management consulted. Of note, patient was previously at a retirement in [place] and caregiver would not like him to return there. However, she is hoping for long-term placement. 2. Seizure disorder Home medications of divalproex, Keppra and topiramate. Caregiver states has been taking his as prescribed. He apparently had a seizure about 8 days ago, presented to the ED for that. Brain CT at that time was negative. Labs were unremarkable. Was discharged home. -Continue home seizure medications. 3. Poor dentition, concern for oral infection ? Poor dentition noted on exam today. Admission labs pending. Will treat empirically with Augmentin for 5 to 7-day course. 4. History of DVT ? Continue home Xarelto. 5. Hyperlipidemia ? Continue home atorvastatin. 6. Hypothyroidism ? Continue home Synthroid. DVT prophylaxis: Xarelto CODE STATUS: Full code, verified. Confirmed with caregiver on admission. Expected disposition: SNF, TBD Total clinical time spent by myself addressing the patient's medical issues, reviewing all the data, and collaborating with patient's care team: 55 minutes. Charges/Coding Visit Charges Inpatient E&M: 90589 Init Hosp L2
[2022-10-17] MEDS: Penicillin Vk 250 MG Tablet 500 MG PO (19:27)
[2022-10-17 19:30] VITALS: BP 138/79; PULSE 88; RESP 16; TEMP 36.4; O2SAT 97
[2022-10-17 19:54] VITALS: BP 138/76; PULSE 89; RESP 16; TEMP 36.7; O2SAT 96
[2022-10-17 20:49] VITALS: BMI 26.6
[2022-10-17 20:56] VITALS: BMI 26.6
[2022-10-17 21:08] VITALS: BP 95/45; PULSE 73; RESP 16; TEMP 36.7; O2SAT 98
[2022-10-17] MEDS: levETIRAcetam 500 MG Tablet PO (22:15)
[2022-10-17] MEDS: Divalproex Sodium 250 MG Tablet 500 MG PO (22:15)
[2022-10-17] MEDS: Ensure Plus High Protein 120 ML LIQUID PO (22:15)
[2022-10-17] MEDS: Tamsulosin HCl 0.4 MG Capsule PO (22:15)
[2022-10-17] MEDS: Mirtazapine 15 MG Tablet PO (22:16)
[2022-10-17] MEDS: Amox/Clavulanate 875 MG Tablet PO (22:16)
[2022-10-17] MEDS: Menthol/Lanolin/Calamine/Znox 113 GM Tube 1 APPLIC TOPICAL (22:17)
[2022-10-17 22:59] LABS: Absolute Lymphocyte Count 1.83 X10^3/uL (0.83-4.51); Absolute Neutrophil Count 4.3 X10^3/uL (2.0-7.7); Basophil# 0.06 X10^3/uL; Basophil% 0.8 % (0-1); Eosinophil# 0.12 X10^3/uL; Eosinophils% 1.7 % (0-5); Hematocrit 39.9 % (40-54); Hemoglobin 12.4 g/dL (13.0-16.5); Lymphocyte # 1.83 X10^3/ul (0.83-4.51); Lymphocyte % 25.7 % (19-41); Mean Corp Hgb Conc 31.1 g/dL (32-36); Mean Corpuscular Hgb 29.5 pg (27.0-32.0); Mean Platelet Vol. 9.3 fl (6.2-12.0); Monocyte# 0.79 X10^3/uL; Monocyte% 11.1 % (0-10); NRBC Flagged by Analyzer 0 % (0-5); Neutrophil # 4.27 X10^3/uL (2.7-7.7); Neutrophil % 60.1 % (47-70); Platelet Count 159 K/mm3 (150-450); RBC Distribution Width CV 13.9 % (11.6-14.6); RBC Distribution Width SD 48.3 fl (35.1-43.9); White Blood Count 7.1 K/mm3 (4.4-11.0)
[2022-10-17] MEDS: Topiramate 50 MG Tablet PO (23:06)
[2022-10-17 23:21] LABS: Anion Gap 5 (5-15); BUN 25 mg/dL (7-18); BUN/Creat Ratio 26.8 RATIO (10-20); Calcium,Total 9.3 mg/dL (8.5-10.1); Chloride 109 mmol/L (98-107); Creatinine, Serum 0.93 mg/dL (0.70-1.30); EST Glomerular Filtration Rate 87 mL/min (>60); Est Glom Filt Rate - Afr Amer 106 mL/min (>60); Estimated Creatinine Clearance 66.28 ml/min; Glucose 80 mg/dL (74-106); Sodium Level 140 mmol/L (136-145)
[2022-10-18] VITALS (11 sets, daily range): BP systolic 76–87; BP diastolic 51–65; PULSE 63–78; RESP 16–18; TEMP 36.5–37.4; O2SAT 96–98
[2022-10-18] MEDS: Levothyroxine 50 MCG Tablet PO ×2 (05:49→05:50)
[2022-10-18] MEDS: Acetaminophen 325 MG Tablet 650 MG PO (05:50)
[2022-10-18] MEDS: Lactated Ringers 1,000 ML 999 ML IV (06:39)
--- NOTE | 2022-10-18 08:41 | PCM.PN.HOSP ---
Reason for Visit Reason for Visit: Diagnoses Adult failure to thrive (10/17/22) Subjective Subjective Patient reports he is feeling better than he was, still has left-sided facial swelling which he reports has been there for days and is roughly unchanged Objective Data Objective Data Vital Signs: Vital Signs Temp Pulse Resp BP Pulse Ox O2 Del Method 98 F 66 16 76/55 L 97 Room Air 10/18/22 07:36 10/18/22 07:36 10/18/22 07:36 10/18/22 08:01 10/18/22 07:36 10/18/22 07:36 Oxygen Delivery Method Room Air Weight: 68.13 kg Body Mass Index (BMI) 26.6 Intake & Output: Intake and Output for Last 24 Hours 10/16/22 10/17/22 10/18/22 23:59 23:59 23:59 Intake Total 200 / 200 1000 / 1000 Output Total 500 / 500 Balance 200 / 200 500 / 500 Lab / Micro Data 10/17/22 22:30 10/17/22 22:30 Labs: Laboratory Results - last 24 hr 10/17/22 22:30: WBC 7.1, RBC 4.20 L, Hgb 12.4 L, Hct 39.9 L, MCV 95.0 H, MCH 29.5, MCHC 31.1 L, RDW Std Deviation 48.3 H, RDW Coeff of Colleen 13.9, Plt Count 159, MPV 9.3, Immature Gran % (Auto) 0.600, Neut % (Auto) 60.1, Lymph % (Auto) 25.7, Harris % (Auto) 11.1 H, Eos % (Auto) 1.7, Baso % (Auto) 0.8, Absolute Neuts (auto) 4.3, Absolute Lymphs (auto) 1.83, Nucleated RBC % 0, Sodium 140, Potassium 4.0, Chloride 109 H, Carbon Dioxide 26.0, Anion Gap 5, BUN 25 H, Creatinine 0.93, Estim Creat Clear Calc 66.28, Est GFR (MDRD) Af Amer 106, Est GFR (MDRD) Non-Af 87, BUN/Creatinine Ratio 26.8 H, Glucose 80, Calcium 9.3 Physical Exam Narrative General: Alert, no apparent distress HEENT: Left-sided facial swelling primarily over jaw extending back towards ear, very poor dentition with back molars broke off near gums, no purulence expressed, no localized lesion able to be noted, tongue not swelled but does have swelling with full length of the left lower face, no extension toward eyes or scalp, cannot appreciate lymphadenopathy, no right-sided facial or mouth involvement or throat involvement whatsoever Eyes: Anicteric, normal conjunctiva, extraocular movements grossly intact Neck: Supple Respiratory: Clear to auscultation bilaterally, normal respiratory effort Cardiovascular: Regular rate and rhythm GI: Soft, nontender, nondistended Extremities: No edema Musculoskeletal: Moving all extremities Neuro: No overt focal neurological deficits Skin: No drainage mouth Psych: Cooperative Assessment & Plan Assessment/Plan (1) Adult failure to thrive: PLAN: Plan Patient is a 62-year-old male with history of seizure disorder with impaired cognition, poor mobility at baseline, DVT on Xarelto, hypothyroidism, hypertension and BPH who presented to [facility] ED on 10/17/2022 with failure to thrive. #Failure to thrive, chronic debility Patient was previously in a senior living for about a year. Was taken out by caregiver due to perceived poor care. Has not been home for about 6 months to 1 year, but caregiver states she is unable to take care of him any longer. Caregiver notes no abrupt decline in function, but rather steady decline over time. Patient ambulates with a walker but ambulates very slowly and has had some minor falls recently. He appears to have underlying cognitive delay, possibly due to seizure disorder as noted below. Was essentially nonverbal with me in the room. Was able to make appropriate eye contact. Appeared quite weak. -Admit to inpatient bed on MedSur floor. PT/OT/case management consulted. Of note, patient was previously at a senior living in [place] and caregiver would not like him to return there. However, she is hoping for long-term placement. -10/18: PT/OT, case management social work #Low blood pressure -TSH within normal limits -Does have slight elevation in BUN, query if there is a component of dehydration, will give fluids and assess for improvement -Continue Augmentin, no other signs or symptoms suggestive of severe infection necessitating IV antibiotics -Continue to hold propranolol -10/18: Given concern for dental infection will switch to IV antibiotics and obtain blood cultures however to verify no other underlying etiology, patient presently asymptomatic #Seizure disorder Home medications of divalproex, Keppra and topiramate. Caregiver states has been taking his as prescribed. He apparently had a seizure about 8 days ago, presented to the ED for that. Brain CT at that time was negative. Labs were unremarkable. Was discharged home. -Continue home seizure medications. -10/18: Given his Depakote use his Depakote level, ammonia, liver panel were checked, ammonia slightly elevated at 46, valproic acid level 106, liver panel unremarkable #Poor dentition, concern for oral infection ? Poor dentition noted on exam today. Admission labs pending. Will treat empirically with Augmentin for 5 to 7-day course. -10/18: Exam as above, given the extent of the swelling will obtain CT head and neck to evaluate for any loculations anything that can be drained or for any other warning signs or symptoms and will switch to IV antibiotics, patient denies problems swallowing or breathing and is managing secretions without difficulty, feels about the same if not better than yesterday. We will follow-up CT for further management #History of DVT ? Continue home Xarelto. #Hyperlipidemia ? Continue home atorvastatin. #Hypothyroidism ? Continue home Synthroid. -TSH 09/23/22 wnl at 1.66 DVT prophylaxis: Xarelto CODE STATUS: Full code, verified. Confirmed with caregiver on admission. Expected disposition: SNF, TBD Total clinical time spent by myself addressing the patient's medical issues, reviewing all the data, and collaborating with patient's care team: 52 minutes. Charges/Coding Visit Charges Inpatient E&M: 33136 Subs Hosp L3
[2022-10-18] MEDS: levETIRAcetam 500 MG Tablet PO ×2 (09:06→21:19)
[2022-10-18] MEDS: Rivaroxaban 20 MG Tablet PO (09:07)
[2022-10-18] MEDS: Divalproex Sodium 250 MG Tablet PO (09:07)
[2022-10-18] MEDS: Amox/Clavulanate 875 MG Tablet PO (09:07)
[2022-10-18] MEDS: Topiramate 50 MG Tablet PO ×2 (09:07→21:20)
[2022-10-18] MEDS: Ensure Plus High Protein 120 ML LIQUID PO ×4 (09:08→21:21)
[2022-10-18] MEDS: Menthol/Lanolin/Calamine/Znox 113 GM Tube 1 APPLIC TOPICAL ×2 (09:08→21:18)
[2022-10-18 09:57] LABS: AST(SGOT) 11 U/L (15-37); Alanine Aminotransfer ALT/SGPT 7 U/L (16-61); Albumin, Serum 2.4 g/dL (3.2-5.0); Alkaline Phosphatase 29 U/L (45-117); Bilirubin, Direct 0.14 mg/dL (0.00-0.30); Globulin 3.8 g/dL (2.2-4.2); Protein, Total 6.2 g/dL (6.4-8.2); Valproic Acid (Depakene) Level 106 ug/mL (50-100)
[2022-10-18] MEDS: Lactulose 20 GM/30 ML UDC 10 GM PO ×2 (10:41→21:16)
--- NOTE | 2022-10-18 11:00 | CT_ITS ---
INDICATION: left facial swelling and pain, dental caries EXAMINATION: CT NECK WITH CONTRAST TECHNIQUE: Helically acquired images were obtained of the neck following IV contrast. A radiation dose optimization technique was used for this scan. IV Contrast dosage and agent: 75 cc of Isovue-370 RADIATION DOSAGE (If Supplied By Facility): CTDIvol = ( 29.38 ) mGy, DLP = ( 591.53 ) mGycm COMPARISON: No prior examinations are available for comparison. FINDINGS: SOFT TISSUES: Soft tissue swelling and edema on the left side of the left mandibular ramus and angle small pockets of air. No evidence of drainable abscess. NASOPHARYNX: Unremarkable. SUPRAHYOID NECK: Unremarkable oropharynx, oral cavity, parapharyngeal space, and retropharyngeal space. INFRAHYOID NECK: Unremarkable larynx, hypopharynx, and supraglottis. THYROID: No enlarged SALIVARY GLANDS: Unremarkable. LYMPH NODES: Few nodes in the left side of the neck. VASCULAR STRUCTURES: Atherosclerotic calcifications in the right carotid bulb without significant stenosis. VISUALIZED PORTIONS OF THE ORBITS, PARANASAL SINUSES, MASTOID AIR CELLS AND SKULL BASE: Was a thickening of the maxillary, ethmoid and sphenoid sinuses. BONES: No demonstrated acute osseous changes. THORACIC INLET: No evidence of pneumothorax. CT/Soft Tissue Neck WITH Contrast IMPRESSION: 1. Soft tissue swelling and edema on the left side of the left mandibular ramus and angle and with small pocket of air without evidence of drainable abscess. 2. Few nodes on the left side of the neck. 3. Sinus disease. Electronically Signed: Aditya Rawls MD at 13:41 EDT ,
--- NOTE | 2022-10-18 11:00 | CT_ITS ---
INDICATION: left facial swelling and pain, dental caries EXAMINATION: CT NECK WITH CONTRAST TECHNIQUE: Helically acquired images were obtained of the neck following IV contrast. A radiation dose optimization technique was used for this scan. IV Contrast dosage and agent: 75 cc of Isovue-370 RADIATION DOSAGE (If Supplied By Facility): CTDIvol = ( 29.38 ) mGy, DLP = ( 591.53 ) mGycm COMPARISON: No prior examinations are available for comparison. FINDINGS: SOFT TISSUES: Soft tissue swelling and edema on the left side of the left mandibular ramus and angle small pockets of air. No evidence of drainable abscess. NASOPHARYNX: Unremarkable. SUPRAHYOID NECK: Unremarkable oropharynx, oral cavity, parapharyngeal space, and retropharyngeal space. INFRAHYOID NECK: Unremarkable larynx, hypopharynx, and supraglottis. THYROID: No enlarged SALIVARY GLANDS: Unremarkable. LYMPH NODES: Few nodes in the left side of the neck. VASCULAR STRUCTURES: Atherosclerotic calcifications in the right carotid bulb without significant stenosis. VISUALIZED PORTIONS OF THE ORBITS, PARANASAL SINUSES, MASTOID AIR CELLS AND SKULL BASE: Was a thickening of the maxillary, ethmoid and sphenoid sinuses. BONES: No demonstrated acute osseous changes. THORACIC INLET: No evidence of pneumothorax. CT/Sinus/Facial Bone WITH Contras IMPRESSION: 1. Soft tissue swelling and edema on the left side of the left mandibular ramus and angle and with small pocket of air without evidence of drainable abscess. 2. Few nodes on the left side of the neck. 3. Sinus disease. Electronically Signed: Aditya Rawls MD at 13:13 EDT ,
[2022-10-18] MEDS: 0.9% Normal Saline 1,000 ML 100 ML IV (14:47)
[2022-10-18] MEDS: Juven (unflavored) Packet 1 PACKET PO (15:26)
[2022-10-18 15:27] LABS: Lactic Acid 1.5 mmol/L (0.4-1.9)
--- NOTE | 2022-10-18 15:38 | PHA.PHARE_ITS ---
Consult Antibiotic Management Pharmacy has been consulted to manage selected antiobiotic: Vancomycin Type of Intervention Type of Consult: New start Suspected Infection Suspected Infection: Skin/Soft tissue Labs Labs: Sodium 140 mmol/L (136-145) 10/17/22 22:30 Potassium 4.0 mmol/L (3.5-5.1) 10/17/22 22:30 Chloride 109 mmol/L (98-107) H 10/17/22 22:30 Carbon Dioxide 26.0 mmol/L (21.0-32.0) 10/17/22 22:30 Anion Gap 5 (5-15) 10/17/22 22:30 BUN 25 mg/dL (7-18) H 10/17/22 22:30 Creatinine 0.93 mg/dL (0.70-1.30) 10/17/22 22:30 Est GFR (MDRD) Af Amer 106 mL/min (>60) 10/17/22 22:30 Est GFR (MDRD) Non-Af 87 mL/min (>60) 10/17/22 22:30 BUN/Creatinine Ratio 26.8 RATIO (10-20) H 10/17/22 22:30 Glucose 80 mg/dL (74-106) 10/17/22 22:30 Dosing Weight Weight used for dosin.1 kg Estimated Creatinine Clearance Estimated Creatinine Clearance: 66 ML/MIN Goal Trough Goal Trough: 15-20 mcg/mL Pharmacy Plan for Drug Dosing Pharmacy Plan for Drug Dosing: Load with vanc 1750mg IV x1 based on the patient's weight, then continue with 750mg IV q12h per [facility] dosing protocol. Will check a trough before the 4th total dose. Pharmacy Service will continue to monitor and adjust dosing as required. Follow-Up Labs Follow-Up Labs: Trough: Vancomycin Date/Time Labs Ordered Labs to be done on [date and time ordered]: 10/20/22 03:30
[2022-10-18 16:11] LABS: M R Staph aureus DNA By PCR Negative (Negative); Probe Check PASS; Specimen Processing Control PASS
--- NOTE | 2022-10-18 16:18 | PCM.HOSP.N ---
Hospitalist Note Reviewed CT findings and also reevaluated patient. Patient resting comfortably, on exam patient is not having any tenderness when palpating over face, exam overall unchanged and he is eating well and has no difficulty swallowing or breathing and reports that his face is feeling better than it did earlier. Given the extent of the swelling will consult ENT and monitor clinically. Continue on IV antibiotics pending cultures and clinical response. Patient does still have soft blood pressure, looking back it appears he does run low, likely multifactorial but patient completely asymptomatic, will start on fluids, labs: Lactic within normal limits do not believe patient is septic
[2022-10-18] MEDS: Midodrine HCl 5 MG Tablet 10 MG PO (17:21)
[2022-10-18] MEDS: Atorvastatin Calcium 40 MG Tablet 20 MG PO (21:19)
[2022-10-18] MEDS: Mirtazapine 15 MG Tablet PO (21:20)
[2022-10-18] MEDS: Divalproex Sodium 250 MG Tablet 500 MG PO (21:20)
[2022-10-18] MEDS: Tamsulosin HCl 0.4 MG Capsule PO (21:21)
[2022-10-19 00:12] VITALS: BP 115/82; PULSE 79; RESP 18; TEMP 36.7; O2SAT 97
[2022-10-19] MEDS: 0.9% Normal Saline 1,000 ML 100 ML IV ×2 (02:56→14:00)
[2022-10-19] MEDS: Lactulose 20 GM/30 ML UDC 10 GM PO ×2 (06:21→22:04)
[2022-10-19 06:26] LABS: Absolute Neutrophil Count 2.8 X10^3/uL (2.0-7.7); Basophil# 0.04 X10^3/uL; Basophil% 0.7 % (0-1); Eosinophil# 0.09 X10^3/uL; Eosinophils% 1.5 % (0-5); Hemoglobin 10.6 g/dL (13.0-16.5); Lymphocyte % 36.1 % (19-41); Mean Corp Hgb Conc 31.2 g/dL (32-36); Mean Corpuscular Hgb 29.5 pg (27.0-32.0); Mean Corpuscular Volume 94.7 fL (80-94); Mean Platelet Vol. 9.4 fl (6.2-12.0); Monocyte# 0.96 X10^3/uL; Monocyte% 15.7 % (0-10); NRBC Flagged by Analyzer 0 % (0-5); Neutrophil # 2.78 X10^3/uL (2.7-7.7); Neutrophil % 45.5 % (47-70); Platelet Count 126 K/mm3 (150-450); RBC Distribution Width SD 48.4 fl (35.1-43.9); Red Blood Count 3.59 M/mm3 (4.6-6.2); White Blood Count 6.1 K/mm3 (4.4-11.0)
[2022-10-19 06:27] VITALS: BP 84/58; PULSE 79; RESP 18; TEMP 36.9; O2SAT 98
[2022-10-19 07:00] LABS: Anion Gap 4 (5-15); BUN 22 mg/dL (7-18); BUN/Creat Ratio 26.6 RATIO (10-20); Calcium,Total 8.3 mg/dL (8.5-10.1); Chloride 113 mmol/L (98-107); Creatinine, Serum 0.83 mg/dL (0.70-1.30); EST Glomerular Filtration Rate 100 mL/min (>60); Est Glom Filt Rate - Afr Amer 121 mL/min (>60); Estimated Creatinine Clearance 74.27 ml/min; Glucose 98 mg/dL (74-106); Potassium 3.6 mmol/L (3.5-5.1); Sodium Level 142 mmol/L (136-145)
[2022-10-19 07:57] VITALS: BP 97/64; PULSE 84; RESP 18; TEMP 37.1; O2SAT 97
[2022-10-19] MEDS: Juven (unflavored) Packet 1 PACKET PO ×2 (07:59→18:21)
[2022-10-19] MEDS: Midodrine HCl 5 MG Tablet 10 MG PO (08:00)
[2022-10-19 08:51] VITALS: O2SAT 95
--- NOTE | 2022-10-19 08:52 | NURSING ---
Dr. Price office returned page, states he is not water filtration technician and he does not see the patient unless the patient is established.
--- NOTE | 2022-10-19 09:14 | PCM.PN.HOSP ---
Reason for Visit Reason for Visit: Diagnoses Adult failure to thrive (10/17/22) Subjective Subjective Patient roughly the same today, still eating and drinking well, no breathing complaints Objective Data Objective Data Vital Signs: Vital Signs Temp Pulse Resp BP Pulse Ox O2 Del Method 98.7 F 84 18 97/64 95 Room Air 10/19/22 07:57 10/19/22 07:57 10/19/22 07:57 10/19/22 07:57 10/19/22 08:51 10/19/22 08:51 Oxygen Delivery Method Room Air Weight: 68.13 kg Body Mass Index (BMI) 26.6 Intake & Output: Intake and Output for Last 24 Hours 10/17/22 10/18/22 10/19/22 23:59 23:59 23:59 Intake Total 200 / 200 2955 / 2955 1245 / 1245 Output Total 500 / 1300 800 / 800 Balance 200 / 200 2455 / 1655 445 / 445 Lab / Micro Data 10/19/22 06:15 10/19/22 06:15 Labs: Laboratory Results - last 24 hr 10/18/22 09:15: Total Bilirubin 0.40, Direct Bilirubin 0.14, AST 11 L, ALT 7 L, Alkaline Phosphatase 29 L, Ammonia 46.0 H, Total Protein 6.2 L, Albumin 2.4 L, Globulin 3.8, Valproic Acid 106 H 10/18/22 14:50: MRSA (PCR) Negative 10/18/22 14:55: Lactic Acid 1.5 10/19/22 06:15: WBC 6.1, RBC 3.59 L, Hgb 10.6 L, Hct 34.0 L, MCV 94.7 H, MCH 29.5, MCHC 31.2 L, RDW Std Deviation 48.4 H, RDW Coeff of Colleen 14.0, Plt Count 126 L, MPV 9.4, Immature Gran % (Auto) 0.500, Neut % (Auto) 45.5 L, Lymph % (Auto) 36.1, [place] % (Auto) 15.7 H, Eos % (Auto) 1.5, Baso % (Auto) 0.7, Absolute Neuts (auto) 2.8, Absolute Lymphs (auto) 2.20, Nucleated RBC % 0, Sodium 142, Potassium 3.6, Chloride 113 H, Carbon Dioxide 25.0, Anion Gap 4 L, BUN 22 H, Creatinine 0.83, Estim Creat Clear Calc 74.27, Est GFR (MDRD) Af Amer 121, Est GFR (MDRD) Non-Af 100, BUN/Creatinine Ratio 26.6 H, Glucose 98, Calcium 8.3 L Radiography Diagnostic Testing: Radiology Impression Facial/Sinus 10/18/22 11:00 IMPRESSION: 1. Soft tissue swelling and edema on the left side of the left mandibular ramus and angle and with small pocket of air without evidence of drainable abscess. 2. Few nodes on the left side of the neck. 3. Sinus disease. Electronically Signed: Aditya Rawls MD at 13:13 EDT , Soft Tissue Neck CT 10/18/22 11:00 IMPRESSION: 1. Soft tissue swelling and edema on the left side of the left mandibular ramus and angle and with small pocket of air without evidence of drainable abscess. 2. Few nodes on the left side of the neck. 3. Sinus disease. Electronically Signed: Aditya Rawls MD at 13:41 EDT , Physical Exam Narrative General: Alert, no apparent distress HEENT: Left-sided facial swelling primarily over jaw extending back towards ear, very poor dentition with back molars broke off near gums, no purulence expressed, no localized lesion able to be noted, tongue not swelled but does have swelling with full length of the left lower face and left side of lips, no extension toward eyes or scalp, no right-sided facial or mouth involvement or throat involvement whatsoever Eyes: Anicteric Neck: Supple Respiratory: Clear to auscultation bilaterally, normal respiratory effort Cardiovascular: Regular rate and rhythm GI: Soft, nontender, nondistended Extremities: Legs wrapped Musculoskeletal: Moving all extremities Neuro: No overt focal neurological deficits Skin: No drainage mouth Psych: Cooperative Assessment & Plan Assessment/Plan (1) Adult failure to thrive: PLAN: Plan Patient is a 62-year-old male with history of seizure disorder with impaired cognition, poor mobility at baseline, DVT on Xarelto, hypothyroidism, hypertension and BPH who presented to [facility] ED on 10/17/2022 with failure to thrive. #Failure to thrive, chronic debility Patient was previously in a residential for about a year. Was taken out by caregiver due to perceived poor care. Has not been home for about 6 months to 1 year, but caregiver states she is unable to take care of him any longer. Caregiver notes no abrupt decline in function, but rather steady decline over time. Patient ambulates with a walker but ambulates very slowly and has had some minor falls recently. He appears to have underlying cognitive delay, possibly due to seizure disorder as noted below. Was essentially nonverbal with me in the room. Was able to make appropriate eye contact. Appeared quite weak. -Admit to inpatient bed on MedSurg floor. PT/OT/case management consulted. Of note, patient was previously at a residential in [place] and caregiver would not like him to return there. However, she is hoping for long-term placement. -10/18: PT/OT, case management social work -10/19: Continue supportive care, will need placement #Low blood pressure -TSH within normal limits -Does have slight elevation in BUN, query if there is a component of dehydration, will give fluids and assess for improvement -Continue Augmentin, no other signs or symptoms suggestive of severe infection necessitating IV antibiotics -Continue to hold propranolol -10/18: Given concern for dental infection will switch to IV antibiotics and obtain blood cultures however to verify no other underlying etiology, patient presently asymptomatic -10/19: Started on fluids and midodrine for blood pressure support, will try to titrate down midodrine as tolerated and continue to hold propranolol #Chronic microcytic anemia -12.4 on admission, 10.6 today but also lines dropped and suspect this is dilutional with the fluids, no signs of blood loss, continue to monitor -Can consider FOBT or further work-up if does not stabilize -We will check iron panel, B12, folate #Seizure disorder Home medications of divalproex, Keppra and topiramate. Caregiver states has been taking his as prescribed. He apparently had a seizure about 8 days ago, presented to the ED for that. Brain CT at that time was negative. Labs were unremarkable. Was discharged home. -Continue home seizure medications. -10/18: Given his Depakote use his Depakote level, ammonia, liver panel were checked, ammonia slightly elevated at 46, valproic acid level 106, liver panel unremarkable -10/19: Continue present measures #Poor dentition, concern for oral infection ? Poor dentition noted on exam today. Admission labs pending. Will treat empirically with Augmentin for 5 to 7-day course. -10/18: Exam as above, given the extent of the swelling will obtain CT head and neck to evaluate for any loculations anything that can be drained or for any other warning signs or symptoms and will switch to IV antibiotics, patient denies problems swallowing or breathing and is managing secretions without difficulty, feels about the same if not better than yesterday. We will follow-up CT for further management -10/19: CT head as above, given persistence of the left-sided facial swelling in association with his poor dentition and tooth broke off we will consult oral surgery for input, continue to biotics and monitor cultures #History of DVT ? Continue home Xarelto. #Hyperlipidemia ? Continue home atorvastatin. #Hypothyroidism ? Continue home Synthroid. -TSH 09/23/22 wnl at 1.66 DVT prophylaxis: Xarelto CODE STATUS: Full code, verified. Confirmed with caregiver on admission. Expected disposition: SNF, D Total clinical time spent by myself addressing the patient's medical issues, reviewing all the data, and collaborating with patient's care team: 52 minutes. Charges/Coding Visit Charges Inpatient E&M: 24231 Subs Hosp L3
--- NOTE | 2022-10-19 09:28 | CASEMGMT ---
Discharge Planning A list of SNF providers including quality and resource use data and consistent with the patient?s preferred geographic region, medical needs, and insurance network was created in [employer]Port Guide. This list was provided to the SW. Alaina Mckeon Discharge Planning Asst.
[2022-10-19] MEDS: Rivaroxaban 20 MG Tablet PO (10:33)
[2022-10-19] MEDS: Ensure Plus High Protein 120 ML LIQUID PO ×4 (10:33→22:09)
[2022-10-19] MEDS: Topiramate 50 MG Tablet PO ×2 (10:33→22:06)
[2022-10-19] MEDS: Menthol/Lanolin/Calamine/Znox 113 GM Tube 1 APPLIC TOPICAL ×2 (10:33→22:07)
[2022-10-19] MEDS: Divalproex Sodium 250 MG Tablet PO (10:33)
[2022-10-19] MEDS: levETIRAcetam 500 MG Tablet PO ×2 (10:33→22:05)
--- NOTE | 2022-10-19 11:00 | CASEMGMT ---
BARBARA GRAHAM into pt room for assessment, pt lying in bed with eyes closed. Pt wakened. Pt oriented to self and year, not place. Pt unable to verify address, pharmacy, etc. Pt agreeable for BARBARA GRAHAM to call Natalie. Verified that Mary Hernandez is pt DPOA and this is on file at [facility]. TC to Natalie, she states she used to go by July and that she is pt DPOA. Assessment answered from her. BARBARA GRAHAM Assessment: BARBARA GRAHAM introduced self and role at [facility], Natalie voices understanding and consents to assessment. Care providers, pharmacy, and demographics verified/updated. Admitting Dx: debility, FTT PCP:Nataliia Specialists: Pt was supposed to be set up with a neurologist but she has not heard from one. She is unsure of the name of the neuro. Preferred Pharmacy: [facility] Insurance: [facility] Dual, [facility] Prescription Benefit: yes LNOK: Natalie Hernandez, cg, DPOA; Lucero Hand, Natalie's dtr Living Arrangements: Pt lives with Natalie in a mobile home with 5 steps to enter with a handrail. Natalie states pt was walking with a walker but needed assistance with all other ADL's. She states she works and pt needs 24 hour care so pt was at her dtr's home for 2 wks. Natalie states pt was in a SNF but she took him out 4-5 mos ago. She states she did not realize how much care pt needed when she took him out of the SNF. She states she did discuss this with the patient when she brought him to the hospital. Transportation: Natalie provides transportation for pt. DME/HHC/SNF: Pt has a walker at home, there is a shower chair as well. Pt was supposed to have HHC per Natalie but this has not been set up. Pt was in [place] but Natalie does not want him to go back there. She wishes for pt to go to [facility] if able. She is aware that SW will be notified and will make sure this option is in network with pt insurance. Natalie denies any questions. She states pt is not normally confused at home. Therapy eval reports pt is assist x2. CM to follow. Advised pt to ask CM if any further question/concerns/needs arise, voices understanding. Pt DPOA Goal: SNF, [facility] Plan: SNF
[2022-10-19] MEDS: Midodrine HCl 5 MG Tablet PO ×2 (12:53→18:21)
--- NOTE | 2022-10-19 14:20 | CASEMGMT ---
Social Work SW received referral from RNCM that pt's POA is requesting placement at [facility]. SW met with pt and introduced self and role of SW. SW inquired with pt regarding dc plan and pt confirmed that his caregiver can no longer care for him at home. A list of SNF providers including quality and resource use data and consistent with the patient?s preferred geographic region, medical needs, and insurance network were provided from the CarePort Guide. Pt confirms that he would like to go to [facility]. DC production administrative assistant updated and to send referral. Plan: [facility], pending acceptance and precert REINALDO Brand
--- NOTE | 2022-10-19 14:44 | CASEMGMT ---
Discharge Planning Referral sent to [facility] via [facility]. Alaina Mckeon, Discharge Planning Asst.
--- NOTE | 2022-10-19 16:08 | CHAPLAIN ---
Type of Pastoral Visit _x__ Initial Visit ___ Follow-up Visit ___ On-call Visit ___ General Patient Visit ___ Spiritual Assessment ___ Family Conference ___ Bereavement ___ Rapid Response ___ Code Blue ___ Other (describe below) Pastoral Care Referral From _x__ Patient ___ Family ___ Nurse ___ Physician ___ Sales And Service Technician ___ Rehabilitation Program Manager ___ Other (describe below) Sacrament/Intervention ___ Active listening ___ Anointing ___ Jewish ___ Bereavement ___ Communion ___ Regina exploration ___ ___ Life review _x__ Prayer ___ Reconciliation ___ Sacrament of Sick _x__ Supportive presence ___ Wedding ___ Other (describe below) Pastoral Comments sat at bedside with patient; pt does answer simple questions with brief answers and mostly nods or shaking of the head; gave calm assurance to patient of good care and made statements to have some casual conversation for connecting with pt; asked pt if he wanted to see outside and per response opened the curtains for view on the outdoors; prayer also given per patient approval
[2022-10-19 17:00] VITALS: BP 95/74; PULSE 86; RESP 18; TEMP 36.8; O2SAT 97
--- NOTE | 2022-10-19 17:01 | CON.PCM_ITS ---
Assessment & Plan Assessment/Plan (1) Gingivitis: PLAN: Plan Doubtful this is dental etiology however I concur with the IV antibiotics and fluids. Glad to follow this patient and if any further changes in examination we will be glad to reevaluate. HPI Consult Data Date of Consult: 10/19/22 HPI Narrative Reason for Consultation: Consult for Mike Adams 62-year-old male admitted for left facial swelli HPI Narrative: MIKE ADAMS, is a 62 M who presents [facility] Medical History (Updated 10/17/22 @ 22:00 by Leslye Yin) Alcohol abuse Bilateral lower extremity edema Blood clotting disorder Blood transfusion without reported diagnosis BPH (benign prostatic hyperplasia) Compression fx, thoracic spine Deep vein thrombosis (DVT) of left lower extremity Depression DVT (deep venous thrombosis) Failure to thrive Femur fracture, left High cholesterol HLD (hyperlipidemia) Hypercoagulable state Hypertension Hypokalemia Hypothyroidism Hypothyroidism Localized edema Multiple falls Nondisplaced fracture of neck of left femur Parkinson disease Parkinson's disease Seizure disorder Seizures Tachycardia Toe pain, left Toe pain, right Home Medications divalproex 250 mg tablet,delayed release 250 mg PO DAILY #30 tabs 09/16/22 [Rx Last Taken Unknown] divalproex 250 mg tablet,delayed release 500 mg (2 x 250 mg) PO QHS #60 tabs [Rx Last Taken Unknown] rivaroxaban 20 mg tablet 20 mg PO DAILY #30 tabs 09/16/22 [Rx Last Taken Unknown] blood pressure monitor #1 ea 09/23/22 [Rx Last Taken Unknown] propranolol 60 mg capsule,24 hr,extended release 60 mg PO DAILY #90 caps 09/23/22 [Rx Last Taken Unknown] compress.stocking,knee,reg,lrg #2 ea 09/24/22 [Rx Last Taken Unknown] potassium chloride 20 mEq tablet,extended release 20 meq PO BID #60 tabs 09/24/22 [Rx Last Taken Unknown] atorvastatin 40 mg tablet 20 mg (1/2 x 40 mg) PO DAILY cholesterol #45 tabs 10/08/22 [Rx Last Taken Unknown] levetiracetam 1,000 mg tablet 500 mg (1/2 x 1,000 mg) PO BID SEIZURES #90 tabs 10/08/22 [Rx Last Taken Unknown] levothyroxine 50 mcg tablet 50 mcg PO DAILY THYROID #90 tabs 10/08/22 [Rx Last Taken Unknown] mirtazapine 30 mg tablet 15 mg (1/2 x 30 mg) PO DAILY mood #45 tabs 10/08/22 [Rx Last Taken Unknown] tamsulosin 0.4 mg capsule (Flomax) 0.4 mg PO QHS URINE #90 caps 10/08/22 [Rx Last Taken Unknown] topiramate 50 mg tablet 50 mg PO BID #60 tabs 10/08/22 [Rx Last Taken Unknown] atorvastatin 20 mg tablet 20 mg PO DAILY cholesterol 10/17/22 [History Last Taken Unknown] mirtazapine 15 mg tablet 15 mg PO DAILY mood 10/17/22 [History Last Taken Unknown] Allergy/AdvReac Type Severity Reaction Status Date / Time No Known Allergies Allergy Verified 10/08/22 05:21 Family History Mother Breast cancer Father Mouth cancer Brother Parkinson disease Surgical History History of left hip replacement History of orthopedic surgery S/P hip replacement Social History Smoking Status: Current every day smoker tobacco type: smokeless tobacco Smokeless tobacco user: chewing tobacco alcohol intake: never substance use type: does not use what type of physical activity do you participate in: none Physical Exam Const alert and no apparent distress General Appearance: cooperative HEENT head/scalp atraumatic, moist oral mucous membranes, oropharynx normal and gingiva normal HEENT Narrative: Overall the oral cavity is moist no obvious lesions no palpable swellings he does have numerous missing teeth and some teeth are not in good repair. Not appreciating any significant intraoral swelling it is questionable that there is any odontogenic etiology for the swelling. Eyes PERRL and EOMs intact bilaterally Neck no lymphadenopathy and supple Neck Narrative: Did not appreciate any submandibular lymphadenopathy General: trachea midline Lab / Micro Data 10/19/22 06:15 10/19/22 06:15 Labs: Laboratory Results - last 24 hr 10/19/22 06:15: WBC 6.1, RBC 3.59 L, Hgb 10.6 L, Hct 34.0 L, MCV 94.7 H, MCH 29.5, MCHC 31.2 L, RDW Std Deviation 48.4 H, RDW Coeff of Colleen 14.0, Plt Count 126 L, MPV 9.4, Immature Gran % (Auto) 0.500, Neut % (Auto) 45.5 L, Lymph % (Auto) 36.1, [place] % (Auto) 15.7 H, Eos % (Auto) 1.5, Baso % (Auto) 0.7, Absolute Neuts (auto) 2.8, Absolute Lymphs (auto) 2.20, Nucleated RBC % 0, Sodium 142, Potassium 3.6, Chloride 113 H, Carbon Dioxide 25.0, Anion Gap 4 L, BUN 22 H, Creatinine 0.83, Estim Creat Clear Calc 74.27, Est GFR (MDRD) Af Amer 121, Est GFR (MDRD) Non-Af 100, BUN/Creatinine Ratio 26.6 H, Glucose 98, Calcium 8.3 L
[2022-10-19 21:57] VITALS: BP 103/69; PULSE 68; RESP 18; TEMP 36.5; O2SAT 96
[2022-10-19] MEDS: Tamsulosin HCl 0.4 MG Capsule PO (22:05)
[2022-10-19] MEDS: Atorvastatin Calcium 40 MG Tablet 20 MG PO (22:05)
[2022-10-19] MEDS: Divalproex Sodium 250 MG Tablet 500 MG PO (22:06)
[2022-10-19] MEDS: Mirtazapine 15 MG Tablet PO (22:08)
[2022-10-20 00:11] VITALS: PULSE 70; RESP 20; O2SAT 95
[2022-10-20] MEDS: 0.9% Normal Saline 1,000 ML 100 ML IV (00:13)
[2022-10-20 03:50] LABS: Absolute Lymphocyte Count 1.98 X10^3/uL (0.83-4.51); Absolute Neutrophil Count 3.7 X10^3/uL (2.0-7.7); Basophil# 0.05 X10^3/uL; Basophil% 0.7 % (0-1); Eosinophil# 0.16 X10^3/uL; Eosinophils% 2.3 % (0-5); Hematocrit 36.3 % (40-54); Hemoglobin 11.2 g/dL (13.0-16.5); Lymphocyte # 1.98 X10^3/ul (0.83-4.51); Lymphocyte % 28.1 % (19-41); Mean Corp Hgb Conc 30.9 g/dL (32-36); Mean Corpuscular Hgb 29.7 pg (27.0-32.0); Mean Corpuscular Volume 96.3 fL (80-94); Mean Platelet Vol. 9.4 fl (6.2-12.0); Monocyte# 1.08 X10^3/uL; Monocyte% 15.3 % (0-10); NRBC Flagged by Analyzer 0 % (0-5); Neutrophil # 3.73 X10^3/uL (2.7-7.7); Platelet Count 124 K/mm3 (150-450); RBC Distribution Width CV 14.3 % (11.6-14.6); RBC Distribution Width SD 50.4 fl (35.1-43.9); Red Blood Count 3.77 M/mm3 (4.6-6.2)
[2022-10-20 04:15] LABS: Vancomycin, Trough Level 22.4 ug/mL (5.0-15.0)
[2022-10-20 04:16] LABS: Vitamin B12 510 pg/mL (211-911)
[2022-10-20 04:19] VITALS: BP 98/63; PULSE 81; RESP 18; TEMP 36.4; O2SAT 96
[2022-10-20 04:19] LABS: Anion Gap 3 (5-15); BUN 15 mg/dL (7-18); Calcium,Total 8.3 mg/dL (8.5-10.1); Chloride 117 mmol/L (98-107); Creatinine, Serum 0.79 mg/dL (0.70-1.30); EST Glomerular Filtration Rate 106 mL/min (>60); Est Glom Filt Rate - Afr Amer 128 mL/min (>60); Estimated Creatinine Clearance 78.03 ml/min; Ferritin 221 ng/mL (26-388); Glucose 94 mg/dL (74-106); Iron 60 ug/dL (65-175); Iron Binding Capacity,Total 196 ug/dL (250-450); PERCENT IRON SATURATION 30.6 % (15.0-55.0); Potassium 3.4 mmol/L (3.5-5.1); Sodium Level 145 mmol/L (136-145)
[2022-10-20] MEDS: Lactulose 20 GM/30 ML UDC 10 GM PO ×2 (04:29→14:35)
[2022-10-20] MEDS: Levothyroxine 50 MCG Tablet PO (04:29)
--- NOTE | 2022-10-20 04:47 | PCM.RX.CS ---
Consult Antibiotic Management Pharmacy has been consulted to manage selected antiobiotic: Vancomycin Type of Intervention Type of Consult: Follow-up Labs Labs: Sodium 145 mmol/L (136-145) 10/20/22 03:40 Potassium 3.4 mmol/L (3.5-5.1) L 10/20/22 03:40 Chloride 117 mmol/L (98-107) H 10/20/22 03:40 Carbon Dioxide 25.0 mmol/L (21.0-32.0) 10/20/22 03:40 Anion Gap 3 (5-15) L 10/20/22 03:40 BUN 15 mg/dL (7-18) 10/20/22 03:40 Creatinine 0.79 mg/dL (0.70-1.30) 10/20/22 03:40 Est GFR (MDRD) Af Amer 128 mL/min (>60) 10/20/22 03:40 Est GFR (MDRD) Non-Af 106 mL/min (>60) 10/20/22 03:40 BUN/Creatinine Ratio 19.0 RATIO (10-20) 10/20/22 03:40 Glucose 94 mg/dL (74-106) 10/20/22 03:40 Vancomycin Trough 22.4 ug/mL (5.0-15.0) H 10/20/22 03:40 Goal Trough Goal Trough: 15-20 mcg/mL Pharmacy Plan for Drug Dosing Pharmacy Plan for Drug Dosing: Pharmacy Service will continue to monitor and adjust dosing as required. TROUGH 22.1 @ 11 HOURS. DOSE GIVEN, HOLD NEXT DOSE AND DRAW RANDOM LEVEL TOMORROW AT 0330 Follow-Up Labs Follow-Up Labs: Trough: Vancomycin Date/Time Labs Ordered Labs to be done on [date and time ordered]: 10/21 @ 0330
[2022-10-20 07:20] VITALS: O2SAT 96
--- NOTE | 2022-10-20 07:51 | PCM.PN.HOSP ---
Reason for Visit Reason for Visit: Diagnoses Chronic gingivitis, plaque induced (10/17/22) Adult failure to thrive (10/17/22) Subjective Subjective Patient reports he continues to feel better, eating well, no difficulty breathing, no acute complaints Objective Data Objective Data Vital Signs: Vital Signs Temp Pulse Resp BP Pulse Ox O2 Del Method 97.6 F L 81 18 98/63 96 Room Air 10/20/22 04:19 10/20/22 04:19 10/20/22 04:19 10/20/22 04:19 10/20/22 04:19 10/20/22 04:19 Oxygen Delivery Method Room Air Weight: 68.13 kg Body Mass Index (BMI) 26.6 Intake & Output: Intake and Output for Last 24 Hours 10/18/22 10/19/22 10/20/22 23:59 23:59 23:59 Intake Total 2955 / 2955 3568.33 / 4768.33 1515 / 1515 Output Total 500 / 1300 1400 / 1400 500 / 500 Balance 2455 / 1655 2168.33 / 3368.33 1015 / 1015 Lab / Micro Data 10/20/22 03:40 10/20/22 03:40 Labs: Laboratory Results - last 24 hr 10/20/22 03:40: WBC 7.0, RBC 3.77 L, Hgb 11.2 L, Hct 36.3 L, MCV 96.3 H, MCH 29.7, MCHC 30.9 L, RDW Std Deviation 50.4 H, RDW Coeff of Colleen 14.3, Plt Count 124 L, MPV 9.4, Immature Gran % (Auto) 0.600, Neut % (Auto) 53.0, Lymph % (Auto) 28.1, [place] % (Auto) 15.3 H, Eos % (Auto) 2.3, Baso % (Auto) 0.7, Absolute Neuts (auto) 3.7, Absolute Lymphs (auto) 1.98, Nucleated RBC % 0, Sodium 145, Potassium 3.4 L, Chloride 117 H, Carbon Dioxide 25.0, Anion Gap 3 L, BUN 15, Creatinine 0.79, Estim Creat Clear Calc 78.03, Est GFR (MDRD) Af Amer 128, Est GFR (MDRD) Non-Af 106, BUN/Creatinine Ratio 19.0, Glucose 94, Calcium 8.3 L, Iron 60 L, TIBC 196 L, Iron Saturation 30.6, Ferritin 221, Vitamin B12 510, Folate 4.40, Vancomycin Trough 22.4 H Physical Exam Narrative General: Alert, no apparent distress HEENT: Left-sided facial swelling primarily over jaw extending back towards ear, very poor dentition Eyes: Anicteric Neck: Supple Respiratory: Clear to auscultation bilaterally, normal respiratory effort Cardiovascular: Regular rate and rhythm GI: Soft, nontender, nondistended Extremities: Legs wrapped Musculoskeletal: Moving all extremities Neuro: No overt focal neurological deficits Skin: No drainage mouth Psych: Cooperative Assessment & Plan Assessment/Plan (1) Adult failure to thrive: PLAN: Plan Patient is a 62-year-old male with history of seizure disorder with impaired cognition, poor mobility at baseline, DVT on Xarelto, hypothyroidism, hypertension and BPH who presented to [facility] ED on 10/17/2022 with failure to thrive. #Failure to thrive, chronic debility Patient was previously in a long term for about a year. Was taken out by caregiver due to perceived poor care. Has not been home for about 6 months to 1 year, but caregiver states she is unable to take care of him any longer. Caregiver notes no abrupt decline in function, but rather steady decline over time. Patient ambulates with a walker but ambulates very slowly and has had some minor falls recently. He appears to have underlying cognitive delay, possibly due to seizure disorder as noted below. Was essentially nonverbal with me in the room. Was able to make appropriate eye contact. Appeared quite weak. -Admit to inpatient bed on MedSurg floor. PT/OT/case management consulted. Of note, patient was previously at a long term in [place] and caregiver would not like him to return there. However, she is hoping for long-term placement. -10/18: PT/OT, case management social work -10/19: Continue supportive care, will need placement -10/20: Referrals sent #Low blood pressure -TSH within normal limits -Does have slight elevation in BUN, query if there is a component of dehydration, will give fluids and assess for improvement -Continue Augmentin, no other signs or symptoms suggestive of severe infection necessitating IV antibiotics -Continue to hold propranolol -10/18: Given concern for dental infection will switch to IV antibiotics and obtain blood cultures however to verify no other underlying etiology, patient presently asymptomatic -10/19: Started on fluids and midodrine for blood pressure support, will try to titrate down midodrine as tolerated and continue to hold propranolol -10/20: Tolerated down titration of midodrine, ultimately anticipate will be able to stop this #Chronic microcytic anemia -12.4 on admission, 10.6 today but also lines dropped and suspect this is dilutional with the fluids, no signs of blood loss, continue to monitor -Can consider FOBT or further work-up if does not stabilize -We will check iron panel, B12, folate -10/20: Stable, iron panel consistent with anemia of chronic disease B12 and folate within normal limits #Seizure disorder Home medications of divalproex, Keppra and topiramate. Caregiver states has been taking his as prescribed. He apparently had a seizure about 8 days ago, presented to the ED for that. Brain CT at that time was negative. Labs were unremarkable. Was discharged home. -Continue home seizure medications. -10/18: Given his Depakote use his Depakote level, ammonia, liver panel were checked, ammonia slightly elevated at 46, valproic acid level 106, liver panel unremarkable -10/19: Continue present measures #Poor dentition, concern for oral infection ? Poor dentition noted on exam today. Admission labs pending. Will treat empirically with Augmentin for 5 to 7-day course. -10/18: Exam as above, given the extent of the swelling will obtain CT head and neck to evaluate for any loculations anything that can be drained or for any other warning signs or symptoms and will switch to IV antibiotics, patient denies problems swallowing or breathing and is managing secretions without difficulty, feels about the same if not better than yesterday. We will follow-up CT for further management -10/19: CT head as above, given persistence of the left-sided facial swelling in association with his poor dentition and tooth broke off we will consult oral surgery for input, continue to biotics and monitor cultures -10/20: Evaluated by dental surgery who did not feel this was dental in nature and recommended continuing current management, MRSA screen negative so we will discontinue vancomycin, will transition to Augmentin when patient discharged #History of DVT ? Continue home Xarelto. #Hyperlipidemia ? Continue home atorvastatin. #Hypothyroidism ? Continue home Synthroid. -TSH 09/23/22 wnl at 1.66 DVT prophylaxis: Xarelto CODE STATUS: Full code, verified. Confirmed with caregiver on admission. Expected disposition: SNF, TBD Total clinical time spent by myself addressing the patient's medical issues, reviewing all the data, and collaborating with patient's care team: 40 minutes. Charges/Coding Visit Charges Inpatient E&M: 09446 Subs Hosp L2
[2022-10-20 08:48] VITALS: BP 113/80; PULSE 89; RESP 18; TEMP 36.6; O2SAT 989
[2022-10-20] MEDS: Juven (unflavored) Packet 1 PACKET PO ×2 (09:10→16:22)
[2022-10-20] MEDS: Midodrine HCl 5 MG Tablet PO ×3 (09:11→16:22)
[2022-10-20] MEDS: Menthol/Lanolin/Calamine/Znox 113 GM Tube 1 APPLIC TOPICAL (09:11)
[2022-10-20] MEDS: Ensure Plus High Protein 120 ML LIQUID PO ×2 (09:11→14:35)
[2022-10-20] MEDS: levETIRAcetam 500 MG Tablet PO (09:11)
[2022-10-20] MEDS: Rivaroxaban 20 MG Tablet PO (09:11)
[2022-10-20] MEDS: Topiramate 50 MG Tablet PO (09:11)
[2022-10-20] MEDS: Divalproex Sodium 250 MG Tablet PO (09:13)
--- NOTE | 2022-10-20 09:20 | CASEMGMT ---
Social Work Pt has been accepted at [facility]. Precert will need obtained prior to admission to [facility]. SW placed call to pt MARK Estrada and updated and she is agreeable to plan. SW met with pt and informed and pt is also agreeable. Plan: [facility], pending precert REINALDO Brand
--- NOTE | 2022-10-20 11:47 | CASEMGMT ---
Discharge Planning Updates sent to [facility] via [employer]. Asked that precert be started. Alaina Mckeon, Discharge Planning Asst.
--- NOTE | 2022-10-20 14:30 | TREXTCAR_ITS ---
Diet Diet Order/Speech Therapy: 10/17/22 20:55 Diet: Cardiac - Heart Healthy Food consistency:: Easy to Chew Liquid Consistency:: Regular/Thin Is pt able to select menu?: No Routine Orders/Code Status Suppository Type: Dulcolax 10mg Suppository Frequency: Daily PRN Code Status: Full Code Wound(s) RT HAND: Wound Type: Abrasion RT BUTTOCK: Wound Type: Pressure Injury Therapies Physical Therapy: Eval and Treat Occupational Therapy: Eval and Treat Problem/Diagnosis (1) Adult failure to thrive: Status: Acute Code(s): R62.7 - Adult failure to thrive Plan #Failure to thrive, chronic debility #Low blood pressure- improved #Chronic microcytic anemia #Seizure disorder #Poor dentition, concern for oral infection, facial swelling #History of DVT #Hyperlipidemia #Hypothyroidism MIKE ADAMS is a 62 M is a 62-year-old male with history of seizure disorder with impaired cognition, poor mobility at baseline, DVT on Xarelto, hypothyroidism, hypertension and BPH who presented to [facility] ED on 10/17/2022 with failure to thrive. 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 He did have some left-sided facial swelling and initially was on Augmentin however due to it being unclear the chronicity and severity he was transitioned to IV antibiotics and dental surgery saw him who did not necessarily think it was dental in nature but recommended continuing antibiotics. MRSA screen was negative so no MRSA coverage needed. CT head and neck to evaluate for any loculations anything that can be drained or for any other warning signs patient did initially have suboptimal blood pressure. And required midodrine, lactic was normal, no other evidence of any endorgan dysfunction and blood cultures no growth to date so do not think patient was septic. He improved with fluids and was weaned off midodrine, seems he has soft blood pressure at baseline which can be noted moving forward. On day of discharge patient does feel the pain in his face is improved and feels better overall, had no acute complaints. DISCHARGE INSTRUCTIONS PLEASE READ *Please take this with you to your next doctors appointment* -Please follow-up with ENT (ear nose throat) upon discharge for your facial swelling. If you are not already established with an ear nose throat doctor you can follow-up with [facility]. Please call [phone] to schedule an appointment. -It would be beneficial for you to follow with a dentist upon discharge -Would also be beneficial follow with neurology upon discharge for your seizure disorder -You will need to take Augmentin 875 mg twice daily tonight and then 5 more days. -Would recommend you taking mirtazapine at bedtime to avoid oversedation -Your propranolol has been stopped due to low blood pressure -You have been started on lactulose for elevated ammonia level 2 bowel movements daily -Would recommend continuing to wrap legs -Please call your primary care provider's office upon discharge to schedule a hospital follow up within 1 week. -For any concerning signs or symptoms please call 911 or proceed to the nearest emergency department Allergies/Procedures Done in Hospital Allergies No Known Allergies Allergy (Verified 10/08/22 05:21) Type of Care/Length of Stay Estimated LOS: Convalescent Care Less Than 30 days Type of Care Needed: Skilled Rehab Potential: Fair Prognosis: Fair Additional Orders/Day of Discharge Day of Discharge: 10/20/22 Dietary and Speech Recommendations Dietitian Recommendations/Changes: Continue with Cardiac diet at this time 2/2 edema. Will order You BID w/ medpass to promote wound healing. Continue with Ensure Plus High Protein 120mL 4x/day as well. Will modify interventions as needed upon f/u. Discharge Plan Admission Admit Date/Time: 10/17/22 19:28 Primary Reason for Your Visit: Debility Attending Provider: Liv Tobar Primary Care Provider: Harmony William Consulting Providers: Randall Marie; Omer Castro; Aung Benavidez Instructions Patient Instructions: ED Fall Prevention Additional Instructions / Restrictions: DISCHARGE INSTRUCTIONS PLEASE READ *Please take this with you to your next doctors appointment* -Please follow-up with ENT (ear nose throat) upon discharge for your facial swelling. If you are not already established with an ear nose throat doctor you can follow-up with [facility]. Please call [phone] to schedule an appointment. -It would be beneficial for you to follow with a dentist upon discharge -Would also be beneficial follow with neurology upon discharge for your seizure disorder -You will need to take Augmentin 875 mg twice daily tonight and then 5 more days. -Would recommend you taking mirtazapine at bedtime to avoid oversedation -Your propranolol has been stopped due to low blood pressure -You have been started on lactulose for elevated ammonia level 2 bowel movements daily -Would recommend continuing to wrap legs -Please call your primary care provider's office upon discharge to schedule a hospital follow up within 1 week. -For any concerning signs or symptoms please call 911 or proceed to the nearest emergency department Discharge Orders/Prescriptions Prescriptions: New amoxicillin-pot clavulanate 875-125 mg tablet 1 tab PO BID 5 Days Qty: 11 0RF lactulose 20 gram/30 mL Solution 10 g PO TID Qty: 0 0RF Rx Instructions: Titrate to 2 bowel movements daily Ensure Plus High Protein 0.08 gram-1.5 kcal/mL Liquid 120 ml PO 4X/DAY Qty: 0 0RF Continued (DME) blood pressure monitor Kit See Rx Instructions .MEDSUPPLY Qty: 1 0RF Rx Instructions: Check blood pressure daily for hypertension I10 atorvastatin 20 mg tablet 20 mg PO DAILY divalproex 250 mg tablet,delayed release (DR/EC) 250 mg PO DAILY Qty: 30 4RF divalproex 250 mg tablet,delayed release (DR/EC) 500 mg PO QHS Qty: 60 4RF rivaroxaban 20 mg tablet 20 mg PO DAILY Qty: 30 4RF Rx Instructions: TAKE 1 TABLET BY MOUTH DAILY potassium chloride 20 mEq tablet extended release 20 meq PO BID Qty: 60 1RF (DME) compress.stocking,knee,reg,lrg Misc See Rx Instructions .MEDSUPPLY Qty: 2 1RF Rx Instructions: wear daily for venous insufficiency 20-30 mmHg levetiracetam 1,000 mg tablet 500 mg PO BID Qty: 90 0RF levothyroxine 50 mcg tablet 50 mcg PO DAILY Qty: 90 0RF tamsulosin [Flomax] 0.4 mg capsule 0.4 mg PO QHS Qty: 90 0RF topiramate 50 mg tablet 50 mg PO BID Qty: 60 0RF Changed mirtazapine 15 mg tablet 15 mg PO QHS Qty: 30 0RF Discontinued propranolol 60 mg capsule,extended release 24 hr 60 mg PO DAILY Qty: 90 3RF atorvastatin 40 mg tablet 20 mg PO DAILY Qty: 45 0RF mirtazapine 30 mg tablet 15 mg PO DAILY Qty: 45 0RF Referrals / Follow Up: Omer Castro MD [Med Staff - Active Staff] - Within 1 Week Harmony William MD [Primary Care Provider] - Within 1 Week Disposition Disposition (needs filled in before D/C Order can be placed): Nursing Home Facility
[2022-10-20 14:48] VITALS: BP 102/78; PULSE 78; RESP 18; TEMP 36.6; O2SAT 95
--- NOTE | 2022-10-20 14:48 | DS.PCM_ITS ---
Providers Date of Admission: 10/17/22 Date of Discharge: 10/20/22 Primary Care Physician: Dr. Harmony William MD Consultations 10/19/22 05:55 Consult: ENT AM (NON MEDS) Consulting Provider: Omer Castro Reason for Consult: Left mandibular and soft tissue swelling EMERGENT Consult: No Notified: Yes Date Notified: 10/19/22 Time Notified: 08:43 Method of Notification: Answering Service 10/19/22 13:20 Consult: Oral Surgeon Routine Consulting Provider: Aung Benavidez Reason for Consult: Poor dentition w/ significant left sided facial swelling EMERGENT Consult: No Notified: Yes Date Notified: 10/19/22 Time Notified: 13:20 Method of Notification: Verbal Reason For Visit: DEBILITY, FAILURE TO THRIVE Diagnosis Discharge Diagnosis (1) Adult failure to thrive: Status: Acute Code(s): R62.7 - Adult failure to thrive Plan #Failure to thrive, chronic debility #Low blood pressure- improved #Chronic microcytic anemia #Seizure disorder #Poor dentition, concern for oral infection, facial swelling #History of DVT #Hyperlipidemia #Hypothyroidism Medications at Discharge Home Medications divalproex 250 mg tablet,delayed release 250 mg PO DAILY #30 tabs 09/16/22 divalproex 250 mg tablet,delayed release 500 mg (2 x 250 mg) PO QHS #60 tabs 09/16/22 rivaroxaban 20 mg tablet 20 mg PO DAILY #30 tabs 09/16/22 blood pressure monitor #1 ea 09/23/22 compress.stocking,knee,reg,lrg #2 ea 09/24/22 potassium chloride 20 mEq tablet,extended release 20 meq PO BID #60 tabs 09/24/22 levetiracetam 1,000 mg tablet 500 mg (1/2 x 1,000 mg) PO BID SEIZURES #90 tabs 10/08/22 levothyroxine 50 mcg tablet 50 mcg PO DAILY THYROID #90 tabs 10/08/22 tamsulosin 0.4 mg capsule (Flomax) 0.4 mg PO QHS URINE #90 caps 10/08/22 topiramate 50 mg tablet 50 mg PO BID #60 tabs 10/08/22 atorvastatin 20 mg tablet 20 mg PO DAILY cholesterol 10/17/22 amoxicillin 875 mg-potassium clavulanate 125 mg tablet 1 tab PO BID 5 days #11 tabs 10/20/22 food supplemt, lactose-reduced 0.08 gram-1.5 kcal/mL oral liquid (Ensure Plus High Protein) 120 ml PO 4X/DAY #0 mL 10/20/22 lactulose 20 gram/30 mL oral solution 10 g (15 mL) PO TID #0 mL 10/20/22 mirtazapine 15 mg tablet 15 mg PO QHS mood #30 tabs 10/20/22 Hospital Course Summary of Care Provided Minutes Spent on Discharge: 33 Hospital Course: MIKE ADAMS is a 62 M is a 62-year-old male with history of seizure disorder with impaired cognition, poor mobility at baseline, DVT on Xarelto, hypothyroidism, hypertension and BPH who presented to [facility] ED on 10/17/2022 with failure to thrive. 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 He did have some left-sided facial swelling and initially was on Augmentin however due to it being unclear the chronicity and severity he was transitioned to IV antibiotics and dental surgery saw him who did not necessarily think it was dental in nature but recommended continuing antibiotics. MRSA screen was negative so no MRSA coverage needed. CT head and neck to evaluate for any loculations anything that can be drained or for any other warning signs patient did initially have suboptimal blood pressure. And required midodrine, lactic was normal, no other evidence of any endorgan dysfunction and blood cultures no growth to date so do not think patient was septic. He improved with fluids and was weaned off midodrine, seems he has soft blood pressure at baseline which can be noted moving forward. On day of discharge patient does feel the pain in his face is improved and feels better overall, had no acute complaints. DISCHARGE INSTRUCTIONS PLEASE READ *Please take this with you to your next doctors appointment* -Please follow-up with ENT (ear nose throat) upon discharge for your facial swelling. If you are not already established with an ear nose throat doctor you can follow-up with [facility]. Please call [phone] to schedule an appointment. -It would be beneficial for you to follow with a dentist upon discharge -Would also be beneficial follow with neurology upon discharge for your seizure disorder -You will need to take Augmentin 875 mg twice daily tonight and then 5 more days. -Would recommend you taking mirtazapine at bedtime to avoid oversedation -Your propranolol has been stopped due to low blood pressure -You have been started on lactulose for elevated ammonia level 2 bowel movements daily -Would recommend continuing to wrap legs -Please call your primary care provider's office upon discharge to schedule a hospital follow up within 1 week. -For any concerning signs or symptoms please call 911 or proceed to the nearest emergency department Physical Exam Narrative General: Alert, no apparent distress HEENT: Left-sided facial swelling primarily over jaw extending back towards ear, very poor dentition Eyes: Anicteric Neck: Supple Respiratory: Clear to auscultation bilaterally, normal respiratory effort Cardiovascular: Regular rate and rhythm GI: Soft, nontender, nondistended Extremities: Legs wrapped Musculoskeletal: Moving all extremities Neuro: No overt focal neurological deficits Skin: No drainage mouth Psych: Cooperative Weight / BMI Weight Weight: 68.13 kg Body Mass Index (BMI) 26.6 ABG / Lab / Microbiology Data 10/20/22 03:40 10/20/22 03:40 Laboratory: Laboratory Results - last 24 hr 10/20/22 03:40: WBC 7.0, RBC 3.77 L, Hgb 11.2 L, Hct 36.3 L, MCV 96.3 H, MCH 29.7, MCHC 30.9 L, RDW Std Deviation 50.4 H, RDW Coeff of Colleen 14.3, Plt Count 124 L, MPV 9.4, Immature Gran % (Auto) 0.600, Neut % (Auto) 53.0, Lymph % (Auto) 28.1, [place] % (Auto) 15.3 H, Eos % (Auto) 2.3, Baso % (Auto) 0.7, Absolute Neuts (auto) 3.7, Absolute Lymphs (auto) 1.98, Nucleated RBC % 0, Sodium 145, Potassium 3.4 L, Chloride 117 H, Carbon Dioxide 25.0, Anion Gap 3 L, BUN 15, Creatinine 0.79, Estim Creat Clear Calc 78.03, Est GFR (MDRD) Af Amer 128, Est GFR (MDRD) Non-Af 106, BUN/Creatinine Ratio 19.0, Glucose 94, Calcium 8.3 L, Iron 60 L, TIBC 196 L, Iron Saturation 30.6, Ferritin 221, Vitamin B12 510, Folate 4.40, Vancomycin Trough 22.4 H Microbiology: Microbiology 10/18/22 11:35 Blood Culture (Wb) - Left Hand Blood Culture - Preliminary No growth in 5 days. 10/18/22 11:25 Blood Culture (Wb) - Left Hand Blood Culture - Preliminary No growth in 5 days. D/C Instructions Discharge Diet: - (Cardiac, heart healthy) Meaningful Use Info Meaningful Use Diagnoses (Choose all that apply): None applicable Discharge Plan Admission Admit Date/Time: 10/17/22 19:28 Primary Reason for Your Visit: Debility Attending Provider: Liv Tobar Primary Care Provider: Harmony William Consulting Providers: Randall Marie; Omer Castro; Aung Benavidez Instructions Patient Instructions: ED Fall Prevention Additional Instructions / Restrictions: DISCHARGE INSTRUCTIONS PLEASE READ *Please take this with you to your next doctors appointment* -Please follow-up with ENT (ear nose throat) upon discharge for your facial swelling. If you are not already established with an ear nose throat doctor you can follow-up with [facility]. Please call [phone] to schedule an appointment. -It would be beneficial for you to follow with a dentist upon discharge -Would also be beneficial follow with neurology upon discharge for your seizure disorder -You will need to take Augmentin 875 mg twice daily tonight and then 5 more days. -Would recommend you taking mirtazapine at bedtime to avoid oversedation -Your propranolol has been stopped due to low blood pressure -You have been started on lactulose for elevated ammonia level 2 bowel movements daily -Would recommend continuing to wrap legs -Please call your primary care provider's office upon discharge to schedule a hospital follow up within 1 week. -For any concerning signs or symptoms please call [phone] or proceed to the nearest emergency department Discharge Orders/Prescriptions Prescriptions: New amoxicillin-pot clavulanate 875-125 mg tablet 1 tab PO BID 5 Days Qty: 11 0RF lactulose 20 gram/30 mL Solution 10 g PO TID Qty: 0 0RF Rx Instructions: Titrate to 2 bowel movements daily Ensure Plus High Protein 0.08 gram-1.5 kcal/mL Liquid 120 ml PO 4X/DAY Qty: 0 0RF Continued (DME) blood pressure monitor Kit See Rx Instructions .MEDSUPPLY Qty: 1 0RF Rx Instructions: Check blood pressure daily for hypertension I10 atorvastatin 20 mg tablet 20 mg PO DAILY divalproex 250 mg tablet,delayed release (DR/EC) 250 mg PO DAILY Qty: 30 4RF divalproex 250 mg tablet,delayed release (DR/EC) 500 mg PO QHS Qty: 60 4RF rivaroxaban 20 mg tablet 20 mg PO DAILY Qty: 30 4RF Rx Instructions: TAKE 1 TABLET BY MOUTH DAILY potassium chloride 20 mEq tablet extended release 20 meq PO BID Qty: 60 1RF (DME) compress.stocking,knee,reg,lrg Misc See Rx Instructions .MEDSUPPLY Qty: 2 1RF Rx Instructions: wear daily for venous insufficiency 20-30 mmHg levetiracetam 1,000 mg tablet 500 mg PO BID Qty: 90 0RF levothyroxine 50 mcg tablet 50 mcg PO DAILY Qty: 90 0RF tamsulosin [Flomax] 0.4 mg capsule 0.4 mg PO QHS Qty: 90 0RF topiramate 50 mg tablet 50 mg PO BID Qty: 60 0RF Changed mirtazapine 15 mg tablet 15 mg PO QHS Qty: 30 0RF Discontinued propranolol 60 mg capsule,extended release 24 hr 60 mg PO DAILY Qty: 90 3RF atorvastatin 40 mg tablet 20 mg PO DAILY Qty: 45 0RF mirtazapine 30 mg tablet 15 mg PO DAILY Qty: 45 0RF Referrals / Follow Up: Omer Castro MD [Med Staff - Active Staff] - Within 1 Week Harmony William MD [Primary Care Provider] - Within 1 Week Disposition Disposition (needs filled in before D/C Order can be placed): Group Home Facility Charges/Coding Visit Charges Inpatient E&M: 97643 Disch Hosp >30min
--- NOTE | 2022-10-20 15:26 | CASEMGMT ---
Social Work Precert obtained for admission to [facility]. Physician updated and feels pt is ready for discharge. 7000 exemption form completed in [facility]. Disposition: [facility], skilled level of care under convalescent stay REINALDO Brand
--- NOTE | 2022-10-20 15:28 | CASEMGMT ---
Discharge Planning Discharge orders, signed med list, and tranport time sent to [facility] via [facility]. [facility] will transport patient by cot at 5:30p. Nursing, SW, patient and his POA all updated. Alaina Mckeon, Discharge Planning Asst.
--- NOTE | 2022-10-20 15:33 | PHA.DC.MR.R ---
Pharmacy [place] Med Reconciliation Pharmacy Service has performed discharge medication reconciliation for this patient upon transfer to SNF. The patient's discharge medication list was reviewed for discrepancies and discrepancies were resolved. Medications at Discharge Home Medications divalproex 250 mg tablet,delayed release 250 mg PO DAILY #30 tabs 09/16/22 divalproex 250 mg tablet,delayed release 500 mg (2 x 250 mg) PO QHS #60 tabs 09/16/22 rivaroxaban 20 mg tablet 20 mg PO DAILY #30 tabs 09/16/22 blood pressure monitor #1 ea 09/23/22 compress.stocking,knee,reg,lrg #2 ea 09/24/22 potassium chloride 20 mEq tablet,extended release 20 meq PO BID #60 tabs 09/24/22 levetiracetam 1,000 mg tablet 500 mg (1/2 x 1,000 mg) PO BID SEIZURES #90 tabs 10/08/22 levothyroxine 50 mcg tablet 50 mcg PO DAILY THYROID #90 tabs 10/08/22 tamsulosin 0.4 mg capsule (Flomax) 0.4 mg PO QHS URINE #90 caps 10/08/22 topiramate 50 mg tablet 50 mg PO BID #60 tabs 10/08/22 atorvastatin 20 mg tablet 20 mg PO DAILY cholesterol 10/17/22 amoxicillin 875 mg-potassium clavulanate 125 mg tablet 1 tab PO BID 5 days #11 tabs 10/20/22 food supplemt, lactose-reduced 0.08 gram-1.5 kcal/mL oral liquid (Ensure Plus High Protein) 120 ml PO 4X/DAY #0 mL 10/20/22 lactulose 20 gram/30 mL oral solution 10 g (15 mL) PO TID #0 mL 10/20/22 mirtazapine 15 mg tablet 15 mg PO QHS mood #30 tabs 10/20/22
--- NOTE | 2022-11-05 12:29 | NURSING ---
call placed to [facility] regarding home medications left behind. She requested we have RX dispose of them.
== END 2022-10-20 18:28 | disposition skilled nursing facility (03) | DRG 641 ==
LOC: ED 19:22 → MS3 19:57
PROVIDERS: Admitting Provider Hospitalist; Emergency Provider Emergency Medicine; PCP Internal Medicine; Visit Provider Internal Medicine
DX: R62.7 Adult failure to thrive (principal); D68.9 Coagulation defect, unspecified; D63.8 Anemia in other chronic diseases classified elsewhere; E03.9 Hypothyroidism, unspecified; D50.9 Iron deficiency anemia, unspecified; F17.220 Nicotine dependence, chewing tobacco, uncomplicated; G40.909 Epilepsy, unspecified, not intractable, without status epilepticus; I10 Essential (primary) hypertension; K04.7 Periapical abscess without sinus; E78.5 Hyperlipidemia, unspecified; Z79.2 Long term (current) use of antibiotics; Z79.01 Long term (current) use of anticoagulants; R53.81 Other malaise; Z68.26 Body mass index [BMI] 26.0-26.9, adult; Z86.718 Personal history of other venous thrombosis and embolism; N40.0 Benign prostatic hyperplasia without lower urinary tract symptoms
CPT/HCPCS: 36415; 70487; 70491; 80048; 80076; 80164; 80202; 82140; 82607; 82728; 82746; 83540; 83550; 83605; 85025; 87040; 87641; 92610; 97110; 97163; 97166; 97530; 97535; 97802; 99283; J7030; J7040; J7050; J7120; Q9967

== ENCOUNTER → 2022-11-19 | Outpatient (REF) | payer MEDICARE, MEDICAID, SELFPAY ==
[2022-11-19 08:45] LABS: Hematocrit 40.1 % (40-54); Hemoglobin 12.9 g/dL (13.0-16.5); Mean Corp Hgb Conc 32.2 g/dL (32-36); Mean Corpuscular Hgb 30.9 pg (27.0-32.0); Mean Corpuscular Volume 96.2 fL (80-94); Mean Platelet Vol. 9.8 fl (6.2-12.0); Platelet Count 189 K/mm3 (150-450); RBC Distribution Width CV 13.7 % (11.6-14.6); RBC Distribution Width SD 48.8 fl (35.1-43.9); Red Blood Count 4.17 M/mm3 (4.6-6.2); White Blood Count 6.7 K/mm3 (4.4-11.0)
[2022-11-19 09:16] LABS: Anion Gap 4 (5-15); BUN 37 mg/dL (7-18); BUN/Creat Ratio 49.1 RATIO (10-20); Calcium,Total 9.1 mg/dL (8.5-10.1); Chloride 113 mmol/L (98-107); Creatinine, Serum 0.75 mg/dL (0.70-1.30); EST Glomerular Filtration Rate 111 mL/min (>60); Est Glom Filt Rate - Afr Amer 135 mL/min (>60); Glucose 85 mg/dL (74-106); Potassium 4.3 mmol/L (3.5-5.1); Sodium Level 142 mmol/L (136-145)
[2022-11-20 05:53] LABS: T4 Free Direct 1.33 ng/dL (0.76-1.46); Thyroid Stim Hormone (TSH) 0.99 uIU/mL (0.358-3.74)
== END ==
LOC: OLS.SW 05:00
PROVIDERS: PCP Internal Medicine; Visit Provider Family Medicine
DX: G20 Parkinson's disease (principal); E87.6 Hypokalemia; E03.9 Hypothyroidism, unspecified
CPT/HCPCS: 36415; 80048; 84439; 84443; 85027

== ENCOUNTER → 2022-12-17 | Outpatient (REF) | payer MEDICARE, MEDICAID, SELFPAY ==
[2022-12-17 07:34] LABS: Hematocrit 36.8 % (40-54); Hemoglobin 11.4 g/dL (13.0-16.5); Mean Corpuscular Hgb 29.8 pg (27.0-32.0); Mean Corpuscular Volume 96.1 fL (80-94); Mean Platelet Vol. 10.7 fl (6.2-12.0); Platelet Count 180 K/mm3 (150-450); RBC Distribution Width CV 13.2 % (11.6-14.6); RBC Distribution Width SD 46.2 fl (35.1-43.9); Red Blood Count 3.83 M/mm3 (4.6-6.2); White Blood Count 7.2 K/mm3 (4.4-11.0)
[2022-12-17 07:58] LABS: Anion Gap 5 (5-15); BUN 22 mg/dL (7-18); BUN/Creat Ratio 30.9 RATIO (10-20); Calcium,Total 8.8 mg/dL (8.5-10.1); Chloride 113 mmol/L (98-107); Creatinine, Serum 0.71 mg/dL (0.70-1.30); EST Glomerular Filtration Rate 119 mL/min (>60); Est Glom Filt Rate - Afr Amer 144 mL/min (>60); Glucose 87 mg/dL (74-106); Potassium 3.9 mmol/L (3.5-5.1); Sodium Level 143 mmol/L (136-145)
== END ==
LOC: OLS.SW 05:00
PROVIDERS: PCP Internal Medicine; Visit Provider Family Medicine
DX: I10 Essential (primary) hypertension (principal)
CPT/HCPCS: 36415; 80048; 85027

== ENCOUNTER → 2023-01-05 | Outpatient (REF) | payer MEDICARE, MEDICAID, SELFPAY ==
[2023-01-05 10:05] LABS: Thyroid Stim Hormone (TSH) 2.89 uIU/mL (0.358-3.74)
== END ==
LOC: OLS.SW 05:00
PROVIDERS: PCP Internal Medicine; Visit Provider Family Medicine
DX: E03.9 Hypothyroidism, unspecified (principal)
CPT/HCPCS: 36415; 84443

== ENCOUNTER → 2023-02-11 | Outpatient (REF) | payer MEDICARE, MEDICAID, SELFPAY ==
[2023-02-11 08:42] LABS: Hematocrit 41.2 % (40-54); Hemoglobin 12.9 g/dL (13.0-16.5); Mean Corp Hgb Conc 31.3 g/dL (32-36); Mean Corpuscular Hgb 29.1 pg (27.0-32.0); Mean Corpuscular Volume 92.8 fL (80-94); Mean Platelet Vol. 10.2 fl (6.2-12.0); Platelet Count 208 K/mm3 (150-450); RBC Distribution Width CV 12.6 % (11.6-14.6); RBC Distribution Width SD 42.7 fl (35.1-43.9); Red Blood Count 4.44 M/mm3 (4.6-6.2); White Blood Count 8.1 K/mm3 (4.4-11.0)
[2023-02-11 08:53] LABS: Anion Gap 6 (5-15); BUN 25 mg/dL (7-18); Calcium,Total 9.4 mg/dL (8.5-10.1); Chloride 108 mmol/L (98-107); Creatinine, Serum 0.66 mg/dL (0.70-1.30); EST Glomerular Filtration Rate 130 mL/min (>60); Est Glom Filt Rate - Afr Amer 158 mL/min (>60); Glucose 89 mg/dL (74-106); Potassium 3.9 mmol/L (3.5-5.1); Sodium Level 141 mmol/L (136-145)
== END ==
LOC: OLS.SW 05:00
PROVIDERS: PCP Internal Medicine; Visit Provider Family Medicine
DX: I10 Essential (primary) hypertension (principal)
CPT/HCPCS: 36415; 80048; 85027

== ENCOUNTER → 2023-03-10 | Outpatient (REF) | payer MEDICARE, MEDICAID, SELFPAY ==
--- OUTSIDE RECORDS SUMMARY | 2023-03-10 04:23 | XMS RPT_ITS | CCD ---
Author Name Unknown Address [address] [place] [address] Organization [facility] Care Team Providers Care Stock Car Driver Name Role Phone SKYLAR MAURO MD Primary Care Physician [phone] SKYLAR MAURO MD Attending Unavailable SKYLAR MAURO MD Primary Care Unavailable Medications Current Medications Medication Drug Class(es) Dates Sig (Normalized) Sig (Original) celecoxib 200 mg oral capsule (1 source) Nonsteroidal Anti-inflammatory Drug Start: 03-10-2017 CeleBREX 200 mg oral capsule Dose : 200 mg = 1 cap(s), Oral, BID, 0 Refill(s) Start Date: 03/10/17 Status: Ordered levothyroxine sodium 0.05 mg oral tablet (1 source) l-Thyroxine Start: 03-06-2017 levothyroxine 50 mcg (0.05 mg) oral tablet Dose : 50 mcg = 1 tab(s), Oral, qDayAC, 0 Refill(s) Start Date: 03/06/17 Status: Ordered PHENobarbital 32.4 mg oral tablet (1 source) Start: 03-06-2017 PHENobarbital 32.4 mg oral tablet Dose : 32.4 mg = 1 tab(s), Oral, TID, 0 Refill(s) Start Date: 03/06/17 Status: Ordered phenytoin sodium 100 mg oral capsule (1 source) Anti-epileptic Agent Start: 03-06-2017 take 1 capsule by mouth once daily in the morning phenytoin 100 mg oral capsule Dose : 300 mg =, Oral, qAM, 0 Refill(s) Start Date: 03/06/17 Status: Ordered pravastatin sodium 40 mg oral tablet (1 source) HMG-CoA Reductase Inhibitor Start: 03-07-2017 pravastatin 40 mg oral tablet Dose : 40 mg = 1 tab(s), Oral, qHS Start Date: 03/07/17 Status: Ordered divalproex sodium 250 mg delayed release oral tablet (1 source) Mood Stabilizer, Anti-epileptic Agent Start: 03-06-2017 divalproex sodium 250 mg oral delayed release tablet Dose : 500 mg = 2 tab(s), Oral, qHS, 0 Refill(s) Start Date: 03/06/17 Status: Ordered Completed/Discontinued Medications Medication Drug Class(es) Dates Sig (Normalized) Sig (Original) Lovenox (1 source) Low Molecular Weight Heparin Start: 03-10-2017 inject 0.4 mL by subcutaneous injection once daily Lovenox Dose : 40 mg = 0.4 mL, Subcutaneous, qDay, 0 Refill(s) Start Date: 03/10/17 Status: Ordered mirtazapine 30 mg oral tablet (1 source) Start: 03-10-2017 End: 03-15-2017 mirtazapine 30 mg oral tablet Dose : 30 mg = 1 tab(s), Oral, qHS, # 5 tab(s), 0 Refill(s) Start Date: 03/10/17 Stop Date: 03/15/17 Status: Ordered 12 hr morphine sulfate 15 mg extended release oral tablet (1 source) Opioid Agonist Start: 03-10-2017 End: 03-13-2017 take 1 tablet by mouth every hour, then take 1 tablet by mouth twice daily MS Contin 15 mg/8-12 hrs oral tablet, extended release Dose : 15 mg = 1 tab(s), Oral, BID, # 6 tab(s), 0 Refill(s), Hip fracture Start Date: 03/10/17 Stop Date: 03/13/17 Status: Ordered Problems Active Problems Problem Classification Problem Date Documented Da te Episodic/Chronic Epilepsy; convulsions (1 source) Seizure 03-08-2017 Episodic Malaise and fatigue (1 source) Asthenia 03-17-2017 Episodic Osteoarthritis (1 source) Osteoarthritis 03-17-2017 Chronic Other fractures (1 source) Fracture of bone of hip region 03-17-2017 Episodic Thyroid disorders (1 source) Hypothyroidism 03-06-2017 Chronic Past or Other Problems Problem Classification Problem Date Documented Da te Episodic/Chronic Other lower respiratory disease (2 sources) Cough; Translations: [Cough] Onset: 05-01-2022 Episodic Results Test Name Value Interpretation Reference Range Facil ity Encounters Encounter Date Encounter Type Care Provider Facility Start: 05-01-2022 End: 05-06-2022 ambulatory SKYLAR MAURO MD Facility:B Start: 05-01-2022 End: 05-05-2022 Outreach Lab SKYLAR MAURO MD [facility] Procedures Date Procedure Procedure Detail Performing Clinician Start: 03-08-2017 Repair of hip SKYLAR JAMES MD Payers Date Payer Category Payer Unknown [id number] 2022 Unknown [id number] 1960 Unknown [id number] Social History Date Type Detail Facility Tobacco smoking status Never smo ked tobacco (finding) [facility] Sex Assigned At Male [facility] Evaluation + Plan note Note Date & Type Note Facility Evaluation + Plan note No data available for this section [facility] Hospital Discharge instructions Note Date & Type Note Facility Hospital Discharge instructions No data available for this section [facility] Progress note Note Date & Type Note Facility Progress note No data available for this section [facility] Summary Purpose Family History No Family History Records Found Advance Directives No Advanced Directives Records Found Additional Source Comments Patient Care team informatio n (unrecognized section and content) Care Team Personnel Name: SKYLAR MAURO MD Position: P4 Physician - Primary Care Member Role: Primary Care Physician Address: Address: [address] [place] [address]- Care Team Related Persons Name: July Address: Home [address] [address] [place] Name: July Address: Home [address] (unrecognized sect ion and content) No Status Records Found INFORMATION SOURCE (unrecogn ized section and content) FOR RECORDS PERTAINING TO PATIENTS WHO ARE OR HAVE BEEN ENROLLED IN A CHEMICAL DEPENDENCY/SUBSTANCEABUSE PROGRAM, SOME INFORMATION MAY BE OMITTED. This clinical summary was aggregated from multiple sources. Caution should be exercised in using it in the provision of clinical care. This summary normalizes information from multiple sources, and as a consequence, information in this document may materially change the coding, format and clinical context of patient data. In addition, data may be omitted in some cases. CLINICAL DECISIONS SHOULD BE BASED ON THE PRIMARY CLINICAL RECORDS. [facility] [employer] [facility]. provides no warranty or guarantee of the accuracy or completeness of information in this document.
[2023-03-10 09:46] LABS: Valproic Acid (Depakene) Level 85 ug/mL (50-100)
[2023-03-10 09:53] LABS: ALB/GLOB Ratio 0.7 RATIO (0.9-2.4); AST(SGOT) 20 U/L (15-37); Alanine Aminotransfer ALT/SGPT 19 U/L (16-61); Alkaline Phosphatase 46 U/L (45-117); Anion Gap 4 (5-15); BUN 32 mg/dL (7-18); BUN/Creat Ratio 41.1 RATIO (10-20); Calcium,Total 9.3 mg/dL (8.5-10.1); Chloride 112 mmol/L (98-107); Creatinine, Serum 0.78 mg/dL (0.70-1.30); EST Glomerular Filtration Rate 107 mL/min (>60); Est Glom Filt Rate - Afr Amer 130 mL/min (>60); Globulin 4.4 g/dL (2.2-4.2); Glucose 94 mg/dL (74-106); Potassium 3.9 mmol/L (3.5-5.1); Protein, Total 7.4 g/dL (6.4-8.2); Sodium Level 141 mmol/L (136-145)
[2023-03-11 05:30] LABS: Hematocrit 42.2 % (40-54); Hemoglobin 13.2 g/dL (13.0-16.5); Mean Corp Hgb Conc 31.3 g/dL (32-36); Mean Corpuscular Hgb 28.7 pg (27.0-32.0); Mean Corpuscular Volume 91.7 fL (80-94); Mean Platelet Vol. 11.1 fl (6.2-12.0); Platelet Count 211 K/mm3 (150-450); RBC Distribution Width CV 13.2 % (11.6-14.6); RBC Distribution Width SD 44.5 fl (35.1-43.9); White Blood Count 8.1 K/mm3 (4.4-11.0)
[2023-03-12 09:09] LABS: KEPPRA (LEVETIRACETAM) 22.6 ug/mL (10.0-40.0)
== END ==
LOC: OLS.SW 05:00
PROVIDERS: PCP Internal Medicine; Visit Provider Family Medicine
DX: D64.9 Anemia, unspecified (principal); I10 Essential (primary) hypertension; R62.7 Adult failure to thrive; G40.89 Other seizures; Z79.899 Other long term (current) drug therapy
CPT/HCPCS: 36415; 80053; 80164; 80177; 82140; 85027

== ENCOUNTER → 2023-04-08 | Outpatient (REF) | payer MEDICARE, MEDICAID, SELFPAY ==
--- OUTSIDE RECORDS SUMMARY | 2023-04-08 04:38 | XMS RPT_ITS | CCD ---
Author Name Unknown Address [facility] [place] [address] Organization [facility] Care Team Providers Care Nurse Substance Abuse Name Role Phone SKYLAR MAURO MD Primary Care Physician [phone] SKYLAR MAURO MD Attending Unavailable SKYLAR MAURO [...] End: 05-05-2022 Outreach Lab SKYLAR MAURO MD [facility] Procedures Date Procedure Procedure Detail Performing Clinician Start: 03-08-2017 Repair of hip SKYLAR JAMES MD Payers Date Payer Category Payer Unknown [id number] 2022 Unknown [id number] 1960 Unknown [id number] Social History Date Type Detail Facility Tobacco smoking status Never smo ked tobacco (finding) [facility] Sex Assigned At Male [facility] Evaluation + Plan note Note Date & Type Note Facility Evaluation + Plan note No data available for this section [facility] Hospital Discharge instructions Note Date & Type Note Facility Hospital Discharge instructions No data available for this section [facility] Progress note Note Date & Type Note Facility Progress note No data available for this section [facility] Summary Purpose Family History No Family History Records Found Advance Directives No Advanced Directives Records Found Additional Source Comments Patient Care team informatio n (unrecognized section and content) Care Team Personnel Name: SKYLAR MAURO MD Position: P4 Physician - Primary Care Member Role: Primary Care Physician Address: Address: [address] [place] [address]- Care Team Related Persons Name: July Address: Home [address] [address] [place] Name: July Address: Home [address] (unrecognized sect ion and content) No [...] BE BASED ON THE PRIMARY CLINICAL RECORDS. [facility] [employer] [facility]. provides no warranty or guarantee of the accuracy or completeness of information in this document.
[2023-04-08 08:51] LABS: Hematocrit 44.7 % (40-54); Hemoglobin 14.1 g/dL (13.0-16.5); Mean Corp Hgb Conc 31.5 g/dL (32-36); Mean Corpuscular Hgb 29.1 pg (27.0-32.0); Mean Corpuscular Volume 92.2 fL (80-94); Mean Platelet Vol. 10.5 fl (6.2-12.0); Platelet Count 206 K/mm3 (150-450); RBC Distribution Width CV 13.6 % (11.6-14.6); RBC Distribution Width SD 46.4 fl (35.1-43.9); Red Blood Count 4.85 M/mm3 (4.6-6.2); White Blood Count 7.5 K/mm3 (4.4-11.0)
[2023-04-08 09:22] LABS: Anion Gap 6 (5-15); BUN 25 mg/dL (7-18); Calcium,Total 9.4 mg/dL (8.5-10.1); Chloride 111 mmol/L (98-107); EST Glomerular Filtration Rate 122 mL/min (>60); Est Glom Filt Rate - Afr Amer 148 mL/min (>60); Glucose 96 mg/dL (74-106); Potassium 3.9 mmol/L (3.5-5.1); Sodium Level 141 mmol/L (136-145)
== END ==
LOC: OLS.SW 05:00
PROVIDERS: PCP Internal Medicine; Visit Provider Family Medicine
DX: D64.9 Anemia, unspecified (principal); I10 Essential (primary) hypertension; E78.5 Hyperlipidemia, unspecified; E03.9 Hypothyroidism, unspecified; G20.A1 Parkinson's disease without dyskinesia, without mention of fluctuations; G40.89 Other seizures; R62.7 Adult failure to thrive; N40.0 Benign prostatic hyperplasia without lower urinary tract symptoms; E87.6 Hypokalemia; E72.20 Disorder of urea cycle metabolism, unspecified
CPT/HCPCS: 36415; 80048; 82140; 85027

== ENCOUNTER → 2024-04-20 | Outpatient (CLI) | payer MEDICAID, SELFPAY ==
[2024-04-20 16:50] LABS: Absolute Neutrophil Count 2.4 X10^3/uL (2.0-7.7); Basophil# 0.07 X10^3/uL; Basophil% 1.1 % (0-1); Eosinophil# 0.29 X10^3/uL; Eosinophils% 4.4 % (0-5); Hematocrit 45.5 % (40-54); Hemoglobin 14.4 g/dL (13.0-16.5); Lymphocyte % 47.5 % (19-41); Mean Corp Hgb Conc 31.6 g/dL (32-36); Mean Corpuscular Hgb 30.8 pg (27.0-32.0); Mean Corpuscular Volume 97.2 fL (80-94); Mean Platelet Vol. 10.4 fl (6.2-12.0); Monocyte% 10.7 % (0-10); NRBC Flagged by Analyzer 0 % (0-5); Neutrophil # 2.36 X10^3/uL (2.7-7.7); Neutrophil % 36.1 % (47-70); POSITIVE COUNT YES; RBC Distribution Width SD 46.5 fl (35.1-43.9); Red Blood Count 4.68 M/mm3 (4.6-6.2); White Blood Count 6.5 K/mm3 (4.4-11.0)
[2024-04-20 17:12] LABS: Differential Indicated SCAN CRITERIA MET; Platelet Estimate ADEQUATE (ADEQ)
[2024-04-20 18:11] LABS: Valproic Acid (Depakene) Level 84 ug/mL (50-100)
[2024-04-20 18:45] LABS: Hemoglobin A1c 5.2 % (<=5.6)
[2024-04-20 18:55] LABS: Cholesterol 202 mg/dL (<=200); High Density Lipoprotein 63 mg/dL; Low Density Lipoprotein Calc. 122 mg/dL; Triglycerides 86 mg/dL; Very Low Density Lipoprotein 17 mg/dL (5-40)
[2024-04-20 19:10] LABS: ALB/GLOB Ratio 1.1 RATIO (0.9-2.4); AST(SGOT) 31 U/L (<=37); Alanine Aminotransfer ALT/SGPT 5 U/L (<=46); Alkaline Phosphatase 50 U/L (40-129); Anion Gap 12 (5-15); BUN 24 mg/dL (4-19); BUN/Creat Ratio 27.5 RATIO (10-20); Calcium 9.5 mg/dL (7.6-11.0); Carbon Dioxide 19.8 mmol/L (22.0-29.0); Chloride 107 mmol/L (96-108); Creatinine, Serum 0.89 mg/dL (0.70-1.20); EST Glomerular Filtration Rate 96 (>60); Globulin 3.6 g/dL (2.2-4.2); Glucose 89 mg/dL (70-99); Potassium 4.2 mmol/L (3.3-5.1); Protein, Total 7.6 g/dL (5.9-8.4); Sodium Level 138 mmol/L (133-145); Total Bilirubin 0.43 mg/dL (0.00-1.30)
== END | disposition home or self-care (01) ==
LOC: VSLAB 14:17
DX: Z13.6 Encounter for screening for cardiovascular disorders (principal); R56.9 Unspecified convulsions; Z13.220 Encounter for screening for lipoid disorders; Z13.1 Encounter for screening for diabetes mellitus
CPT/HCPCS: 36415; 80053; 80061; 80164; 83036; 84443; 85025

== ENCOUNTER → 2024-06-23 | Outpatient (CLI) | payer MEDICARE, MEDICAID, SELFPAY ==
--- NOTE | 2024-06-23 14:35 | ECHOD_ITS ---
Reason For Study Reason For Study: Murmur Procedure This was a 2D Doppler, Color Flow transthoracic echocardiogram. Technically difficult study, patient unable to stop shaking and was uncomfortable. Exam performed in department. Left Ventricle Normal LV size. Left ventricular systolic function is normal. The left ventricular ejection fraction is 65 %. Stage 1 diastolic dysfunction. No regional wall motion abnormalities noted. Right Ventricle Normal RV size. Normal systolic function. Atria Normal left atrium. Normal right atrium. Mitral Valve Normal mitral valve. Tricuspid Valve Normal tricuspid valve. Aortic Valve Trisinus/trileaflet aortic valve. Pulmonic Valve Normal pulmonic valve. Great Vessels Normal aortic root. The pulmonary artery is normal size. Inferior vena cava collapse with respiration. Pericardium/Pleural No pericardial effusion. MMode/2D Measurements & Calculations LVIDd: 3.1 cm IVSd: 0.87 cm Ao root diam: 3.4 cm LVIDs: 2.0 cm LVPWd: 0.62 cm FS: 35.9 % LAV(MOD-sp2): 22.6 ml Time Measurements MV dec time: 0.23 sec Doppler Measurements & Calculations MV E max dave: 85.5 cm/sec Lat Peak E' Dave: 8.1 cm/sec Med Peak E' Dave: 5.6 cm/sec MV A max dave: 94.0 cm/sec E/E' lat: 10.6 E/E' med: 15.3 MV E/A: 0.91 MV V2 max: 113.9 cm/sec MV P1/2t max dvae: 81.1 cm/sec Ao V2 max: 114.0 cm/sec MV max P.2 mmHg MV P1/2t: 67.6 msec Ao max P.2 mmHg MV V2 mean: 66.4 cm/sec Ao V2 mean: 81.2 cm/sec MV mean P.0 mmHg MV dec slope: 351.6 cm/sec2 Ao mean P.0 mmHg MV V2 VTI: 22.1 cm MVA(P1/2t): 3.3 cm2 Ao V2 VTI: 20.4 cm AV (velocity ratio): 0.93 LV V1 max: 109.4 cm/sec LV V1 max P.8 mmHg LV V1 mean P.6 mmHg LV V1 mean: 76.2 cm/sec LV V1 VTI: 19.0 cm ECHO/Echo Complete Interpretation Summary Normal LV size. Left ventricular systolic function is normal. The left ventricular ejection fraction is 65 %. Stage 1 diastolic dysfunction. Ordering Physician: Femi Abebe Referring Physician: Femi Abebe Performed By: Suhail Montero RCS
== END | disposition home or self-care (01) ==
PROVIDERS: PCP Nurse Practitioner Family
DX: R01.1 Cardiac murmur, unspecified (principal)
CPT/HCPCS: 93306

== ENCOUNTER 2024-11-13 14:11 | Observation (INO) | payer MEDICARE, MEDICAID, SELFPAY ==
[2024-11-13 14:22] VITALS: BP 119/81; PULSE 86; RESP 16; TEMP 36.4; O2SAT 100
--- NOTE | 2024-11-13 16:30 | EX.ED.DYSGE1 ---
HPI History of Present Illness Chief Complaint: General Illness [facility] Medical History High cholesterol Alcohol abuse Depression Hypothyroidism DVT (deep venous thrombosis) Seizures Parkinson's disease Hypokalemia Bilateral lower extremity edema Localized edema Toe pain, left Toe pain, right Failure to thrive Blood transfusion without reported diagnosis Hypercoagulable state HLD (hyperlipidemia) Hypertension Deep vein thrombosis (DVT) of left lower extremity Blood clotting disorder Femur fracture, left Hypothyroidism Tachycardia Compression fx, thoracic spine Multiple falls Nondisplaced fracture of neck of left femur Parkinson disease BPH (benign prostatic hyperplasia) Home Medications ?Medication ?Instructions ?Recorded ?Last Taken ?Type rivaroxaban 20 mg tablet 20 mg PO DAILY #30 tabs 09/16/22 11/12/24 Rx blood pressure monitor #1 ea 09/23/22 Unknown Rx compress.stocking,knee,reg,lrg #2 ea 09/24/22 Unknown Rx tamsulosin 0.4 mg capsule (Flomax) 0.4 mg PO QHS URINE #90 caps 10/08/22 11/12/24 Rx topiramate 50 mg tablet 50 mg PO BID #60 tabs 10/08/22 11/13/24 Rx mirtazapine 15 mg tablet 15 mg PO QHS mood #30 tabs 10/20/22 11/12/24 Rx levothyroxine 50 mcg tablet 50 mcg PO DAILY THYROID 03/09/23 11/13/24 History carbidopa 25 mg-levodopa 100 mg 1 tab PO TID 11/13/24 11/13/24 History tablet divalproex 250 mg tablet,extended 250 mg PO DAILY 11/13/24 Unknown History release 24 hr divalproex 250 mg tablet,extended 500 mg PO QHS 11/13/24 11/12/24 History release 24 hr (Depakote ER) levetiracetam 500 mg tablet 500 mg PO BID 11/13/24 11/13/24 History Allergy/AdvReac Type Severity Reaction Status Date / Time No Known Allergies Allergy Verified 11/13/24 14:22 Family History Mother Breast cancer Father Mouth cancer Brother Parkinson disease Surgical History History of orthopedic surgery History of left hip replacement S/P hip replacement Social History Smoking Status: Current every day smoker tobacco type: smokeless tobacco Smokeless tobacco user: chewing tobacco alcohol intake: never substance use type: does not use what type of physical activity do you participate in: none EXAM Physical Exam Const Vital Signs: 11/13/24 14:22 11/13/24 16:49 11/13/24 18:11 Temperature 97.6 F L 97.8 F Temperature Source Oral Pulse Rate 86 71 Respiratory Rate 16 16 Respiratory Effort Normal Non-Labored Respiratory Pattern Normal Blood Pressure 119/81 H 121/74 H Blood Pressure Mean 93 89 Pulse Ox 100 97 Oxygen Delivery Method Room Air MDM MDM MDM Narrative Medical decision making narrative: HISTORY OF PRESENT ILLNESS: Chief complaint: Needs somewhere to go 64 M here of hypothyroidism, parkinsons disease, VTE on anticoagulation, chronic lower extremity edema and seizure disorder presents with concern for needs somewhere to go. Per him and his caregiver patient got evicted. Denies any physical complaint at this time. Notes he walks with a walker. REVIEW OF SYSTEMS: Pertinent positives: None Pertinent negatives: None PHYSICAL EXAM: Nursing triage notes reviewed, Vital signs reviewed Constitutional: please see mdm HENT: MMM Eyes: Pupils equal round and reactive to light, Extraocular muscles intact Neck: No stridor, no JVD, full neck ROM Lungs: Clear to auscultation, No wheezing or rales. No increased work of breathing, no conversational dyspnea, no accessory muscle use, no nasal flaring. No respiratory distress noted Heart: Regular rate and rhythm, No murmurs, No rubs and No gallops, 2+ distal pulses (radial, femoral, posterior tibial) in all extremities Abdomen: Soft, there is no tenderness, Extremities: Slight 1+ pitting edema bilateral lower extremity Neuro: Alert, oriented, moves all 4 extremities, Skin: No rash or lesions noted MEDICAL DECISION MAKING: Chief Complaint: please see HPI External records reviewed: Reviewed prior ED visit from 2022 in which patient was being evaluated for adult failure to thrive Factors affecting care: As per HPI Social determinants of health: Undomiciled History obtained from others: none Consults: Internal medicine (Dr. Tobar) MDM Narrative: Patient was initially hemodynamically stable, afebrile and nontoxic-appearing. Exam without significant findings. Discussed with social work as to which resources we can provide for the patient. Discussed with hospitalist Dr. Tobar agreed to admit the patient. CBC with no leukocytosis, no anemia thrombocytopenia BMP without significant electrolyte abnormality, no TERENCE The patient was admitted to [facility] for primarily social work evaluation, case technician evaluation and potential placement. He was undomiciled has a significant past medical history. He did not have his medications or ability to achieve them. He also had ambulation difficulties which precluded prompt discharge to local homeless intermediate. The patient and/or family, caregivers express understanding. The patient and/or family, caregivers agrees with the plan. Shared decision making: I will have a discussion with the patient and or visitors regarding risk/benefits of further testing or admission. They will be made aware of of the risk/benefits inherent in this decision they will be given the opportunity to voice understanding. Total critical care time today provided was at least 0 minutes. This excludes separately billable procedures. Critical care time (if documented) is secondary to the patient having high probability of clinically significant/life threatening deterioration in the patient's condition which required my urgent intervention. Impression: 1. Adult failure to thrive 2. Ambulation difficult 3. History of seizures Dispo: Admit This note was generated with [employer] dictation software. It may contain incorrect words, spelling, and punctuation that were not noted in review of the chart prior to signing. Lab Data Labs: Laboratory Results - last 24 hr 11/13/24 18:15 WBC 9.9 RBC 4.56 L Hgb 14.2 Hct 42.9 MCV 94.1 H MCH 31.1 MCHC 33.1 RDW Std Deviation 44.8 H RDW Coeff of Colleen 13.0 Plt Count 197 MPV 9.4 Immature Gran % (Auto) 0.200 Neut % (Auto) 63.8 Lymph % (Auto) 22.9 Taney % (Auto) 10.3 H Eos % (Auto) 2.1 Baso % (Auto) 0.7 Absolute Neuts (auto) 6.3 Absolute Lymphs (auto) 2.26 Nucleated RBC % 0 Sodium 138 Potassium 3.7 Chloride 104 Carbon Dioxide 20.3 L Anion Gap 13 BUN 26 H Creatinine 0.91 Est GFR (MDRD) Non-Af 94 BUN/Creatinine Ratio 28.6 H Glucose 73 Calcium 9.5 Discharge Plan Triage Chief Complaint: General Illness ED Provider: Vishnu Montiel Dx/Rx/DC Orders Primary Care Provider: Manuel Zhou
[2024-11-13 18:11] VITALS: BP 121/74; PULSE 71; RESP 16; TEMP 36.6; O2SAT 97
[2024-11-13 18:30] LABS: Hematocrit 42.9 % (40-54); Hemoglobin 14.2 g/dL (13.0-16.5); Immature Granulocytes Count 0.020 X10^3/uL (0.0-0.0); Mean Corp Hgb Conc 33.1 g/dL (32-36); Mean Corpuscular Volume 94.1 fL (80-94); Mean Platelet Vol. 9.4 fl (6.2-12.0); NRBC Flagged by Analyzer 0 % (0-5); Platelet Count 197 K/mm3 (150-450); RBC Distribution Width CV 13.0 % (11.6-14.6); RBC Distribution Width SD 44.8 fl (35.1-43.9); Red Blood Count 4.56 M/mm3 (4.6-6.2); White Blood Count 9.9 K/mm3 (4.4-11.0)
[2024-11-13 18:57] LABS: Anion Gap 13 (5-15); BUN 26 mg/dL (4-19); BUN/Creat Ratio 28.6 RATIO (10-20); Calcium,Total 9.5 mg/dL (7.6-11.0); Carbon Dioxide 20.3 mmol/L (21.0-32.0); Chloride 104 mmol/L (98-108); Glucose 73 mg/dL (70-99); Potassium 3.7 mmol/L (3.3-5.1)
--- NOTE | 2024-11-13 19:59 | PCM.HP.STD ---
HPI - General General Date of Admission: 11/13/24 Date of Service: 11/13/24 Chief Complaint: Debility, failure to thrive HPI Narrative MIKE ADAMS, is a 64-year-old male history of seizure disorder, VTE on anticoagulation, Parkinson's, hypothyroidism, BPH presented to [facility] ED 11/13/2024 due to failure to thrive. In the ED temp 97.6, heart rate 86, blood pressure 119/81, respiratory rate 16 pulse ox 100% on room air. CBC with temp 9.9, hemoglobin 14.2, BMP with a BUN of 26 and a creatinine 0.91. Hospitalist contacted for admission for likely placement. Evaluated patient while he was in wheelchair, caregiver left not available so spoke with social work and ED physician for history, patient had been living with caregiver and today he and caregiver were evicted at noon, patient is walker dependent at baseline and has a rollator and requires significant assistance with ambulation and most aspects of life. Caregiver was going to stay with someone but they had steps so patient unable to go, reportedly marketing information coordinator spoke with his boat joiner helper who recommended bring him to the hospital for his limited mobility and failure to thrive. Patient very pleasant, main concern is making sure he gets his seizure medications, reportedly they were left at the house and the confusion when they were being affected so patient has not of his medications. Presently denying any other acute complaints. [facility] Medical History Alcohol abuse Bilateral lower extremity edema Blood clotting disorder Blood transfusion without reported diagnosis BPH (benign prostatic hyperplasia) Compression fx, thoracic spine Deep vein thrombosis (DVT) of left lower extremity Depression DVT (deep venous thrombosis) Failure to thrive Femur fracture, left High cholesterol HLD (hyperlipidemia) Hypercoagulable state Hypertension Hypokalemia Hypothyroidism Hypothyroidism Localized edema Multiple falls Nondisplaced fracture of neck of left femur Parkinson disease Parkinson's disease Seizures Tachycardia Toe pain, left Toe pain, right Home Medications ?Medication ?Instructions ?Recorded ?Last Taken ?Type rivaroxaban 20 mg tablet 20 mg PO DAILY #30 tabs 09/16/22 11/12/24 Rx blood pressure monitor #1 ea 09/23/22 Unknown Rx compress.stocking,knee,reg,lrg #2 ea 09/24/22 Unknown Rx tamsulosin 0.4 mg capsule (Flomax) 0.4 mg PO QHS URINE #90 caps 10/08/22 11/12/24 Rx topiramate 50 mg tablet 50 mg PO BID #60 tabs 10/08/22 11/13/24 Rx mirtazapine 15 mg tablet 15 mg PO QHS mood #30 tabs 10/20/22 11/12/24 Rx levothyroxine 50 mcg tablet 50 mcg PO DAILY THYROID 03/09/23 11/13/24 History carbidopa 25 mg-levodopa 100 mg 1 tab PO TID 11/13/24 11/13/24 History tablet divalproex 250 mg tablet,extended 250 mg PO DAILY 11/13/24 Unknown History release 24 hr divalproex 250 mg tablet,extended 500 mg PO QHS 11/13/24 11/12/24 History release 24 hr (Depakote ER) levetiracetam 500 mg tablet 500 mg PO BID 11/13/24 11/13/24 History Allergy/AdvReac Type Severity Reaction Status Date / Time No Known Allergies Allergy Verified 11/13/24 14:22 Family History Mother Breast cancer Father Mouth cancer Brother Parkinson disease Surgical History History of left hip replacement History of orthopedic surgery S/P hip replacement Social History Smoking Status: Current every day smoker tobacco type: smokeless tobacco Smokeless tobacco user: chewing tobacco alcohol intake: never substance use type: does not use what type of physical activity do you participate in: none ROS ROS Narrative General: Denies fever/chills HENT: Denies headache, denies stuffy nose, denies sore throat EYES: Denies changes in vision Resp: Denies cough, denies shortness of breath Cardiac: Denies chest pain GI: Denies abdominal pain, denies changes in bowel, denies nausea/vomiting : Denies changes in urination Extremity: Has some chronic lower extremity swelling MSK: Generally weak and debilitated Neuro: Denies any numbness/tingling Heme: Denies any bleeding or bruising Skin: Denies rashes Psychiatric: No complaints voiced Vital Signs Vital Signs Vital Signs: 11/13/24 14:22 11/13/24 16:49 11/13/24 18:11 Temperature 97.6 F L 97.8 F Temperature Source Oral Pulse Rate 86 71 Respiratory Rate 16 16 Respiratory Effort Normal Non-Labored Respiratory Pattern Normal Blood Pressure 119/81 H 121/74 H Blood Pressure Mean 93 89 Pulse Ox 100 97 Oxygen Delivery Method Room Air Physical Exam Narrative General: Alert, no apparent distress, somewhat unkempt HEENT: normocephalic Eyes: Anicteric, normal conjunctiva, extraocular movements grossly intact Neck: Supple Respiratory: Clear to auscultation bilaterally, normal respiratory effort Cardiovascular: Regular rate GI: Soft, nontender, nondistended Extremities: Trace lower extremity edema Musculoskeletal: Moving all extremities Neuro: No overt focal neurological deficits, does have resting tremor Skin: No rashes appreciated Psych: Cooperative Results Lab / Micro Data 11/13/24 18:15 11/13/24 18:15 Labs: Laboratory Results - last 24 hr 11/13/24 18:15: WBC 9.9, RBC 4.56 L, Hgb 14.2, Hct 42.9, MCV 94.1 H, MCH 31.1, MCHC 33.1, RDW Std Deviation 44.8 H, RDW Coeff of Colleen 13.0, Plt Count 197, MPV 9.4, Immature Gran % (Auto) 0.200, Neut % (Auto) 63.8, Lymph % (Auto) 22.9, Overton % (Auto) 10.3 H, Eos % (Auto) 2.1, Baso % (Auto) 0.7, Absolute Neuts (auto) 6.3, Absolute Lymphs (auto) 2.26, Nucleated RBC % 0, Sodium 138, Potassium 3.7, Chloride 104, Carbon Dioxide 20.3 L, Anion Gap 13, BUN 26 H, Creatinine 0.91, Est GFR (MDRD) Non-Af 94, BUN/Creatinine Ratio 28.6 H, Glucose 73, Calcium 9.5 Assessment & Plan Assessment/Plan (1) Adult failure to thrive: PLAN: Plan # Failure to thrive/difficulty with ambulation -Patient baseline uses rollator and requires assistance for mobility and other aspects of daily life given his Parkinson's and debility -Patient not safe for discharge, [facility] and homeward bound with no beds available however patient also would not be a good candidate for homeless fdc given his significant debility and limitation in mobility with multiple medical needs and medications -[facility] -PT/OT -Case management/social work consults, did discuss with psychiatric social worker supervisor in ED given the above -Supportive care #Seizure disorder -Presently maintained on Depakote, Keppra, topiramate -Continue home regimen #Chronic BPH with obstruction -Continue home medications # Parkinson's disease - continue home Sinemet - supportive care #Hypothyroidism -Continue Synthroid # History of VTE -Continue home Xarelto #DVT ppx: Not indicated, patient already on full dose anticoagulation Liv Tobar MD Time spent in the patient's overall evaluation, decision-making process, review of diagnostic data, adjustment of management, discussion with other providers, nursing and ancillary staff involved in patient's care documentation, 62 Minutes Charges/Coding Visit Charges Inpatient E&M: 28244 Init Hosp L2
--- OUTSIDE RECORDS SUMMARY | 2024-11-13 20:12 | XMS RPT_ITS | CCD ---
Author Organization [facility] Care Team Providers Care Marketing Technologist Name Role Phone ZUNILDA LEAVITT, SKYLAR Lynn Primary Care Physician [phone] Dr. Harmony William Primary Care Provider [phone] Dr. Harmony William Attending Provider [phone] Dr. Harmony William Referring Provider [phone] Dr. Julio C Turpin Emergency Provider [phone] Dr. Randall Marie Admit Provider [phone] Dr. Randall Marie Other Provider [phone] Dr. Liv Tobar Attending Provider Dr. Liv Tobar Other Provider Dr. Omer Castro Other Provider Dr. Aung Benavidez Other Provider Dr. Harmony William Primary Care Provider [phone] Dr. Harmony William Attending Provider [phone] Dr. Harmony William Referring Provider [phone] Dr. Julio C Turpin Emergency Provider Dr. Randall Marie Admit Provider [phone] Dr. Randall Marie Other Provider [phone] Dr. Liv Tobar Attending Provider Dr. Liv Tobar Other Provider Dr. Omer Castro Other Provider Dr. Aung Benavidez Other Provider Dr. Kris Brizuela Attending Provider ZUNILDA LEAVITT, SKYLAR Lynn Attending Unavailable SKYLAR MAURO MD Primary Care Unavailable Dr. Harmony William Primary Care Provider [phone] Dr. Harmony William Referring Provider [phone] Dr. Kris Brizuela Attending Provider Beam MARKET RISK ANALYST-C, Zebulun Primary Care Provider Beam MARKET RISK ANALYST-C, Zebulun Attending Provider Beam MARKET RISK ANALYST-C, Zebulun Referring Provider Zhou MARKET RISK ANALYST-C, Manuel Primary Care Provider Lela LEAVITT, Dr. Vallejo Attending Provider Yoni Vogel Attending Unavailable Zhou VSC, Manuel Primary Care Unavailable Beam VSC, Zebulun Primary Care Unavailable Beam VSC, Zebusukumar Attending Unavailable Zhou VSC, Manuel Primary Care Unavailable Beam VSC, Zebulun Attending Unavailable Beam VSC, Zebulun Referring Unavailable Medications Current Medications Medication Drug Class(es) Dates Sig (Normalized) Sig (Original) acetaminophen 325 mg oral capsule (20 sources) Start: 11-05-2022 take 2 capsules by mouth every four hours as needed Acetaminophen 325 mg capsule Active 650 mg PO Q4H as needed November 05, 2022 12:00am Start: 11-05-2022 take 650 mg by mouth every four hours Acetaminophen Active 650 MG PO Q4H November 04, 2022 11:00pm Start: 01-09-2021 End: 09-08-2022 Acetaminophen (Tylenol) 325 mg Tablet Discontinued 650 mg PO EVERY 6 HOURS NEEDED as needed for Pain Score 1-10/Temp > 100.7 F January 09, 2021 1:00am September 08, 2022 11:41am Start: 01-09-2021 End: 09-08-2022 take 2 tablets by mouth every six hours as needed Acetaminophen (Tylenol) 325 mg Tablet Discontinued 650 MG PO EVERY 6 HOURS NEEDED January 09, 2021 12:00am September 08, 2022 10:41am Start: 01-10-2018 End: 10-17-2019 take 500-1000 mg by mouth every eight hours as needed for pain Acetaminophen 500 MG tablet Discontinued 500 - 1000 mg PO Q8H as needed for Pain January 10, 2018 1:00am October 17, 2019 2:33pm Start: 12-15-2017 End: 12-30-2017 take 2 tablets by mouth every eight hours Acetaminophen 500 MG tablet Discontinued 1000 mg PO EVERY 8 HOURS December 15, 2017 5:24pm December 30, 2017 12:08pm Start: 12-15-2017 End: 12-30-2017 take 1000 mg by mouth every eight hours Acetaminophen Discontinued 1000 MG PO EVERY 8 HOURS December 15, 2017 4:24pm December 30, 2017 11:08am Alum-Mag Hydroxide-Simeth (4 sources) Start: 11-05-2022 Alum-Mag Hydroxide-Simeth Active ML PO November 04, 2022 11:00pm Alum-Mag Hydroxide-Simeth 225-200-25 mg/5 mL suspension (2 sources) Start: 11-05-2022 Alum-Mag Hydroxide-Simeth 225-200-25 mg/5 mL suspension Active mL PO November 05, 2022 12:00am atorvastatin 20 mg oral tablet (20 sources) HMG-CoA Reductase Inhibitor Start: 10-17-2022 take 1 tablet by mouth once daily Atorvastatin 20 mg tablet Active 20 mg PO DAILY October 17, 2022 12:00am Start: 09-08-2022 End: 10-20-2022 Atorvastatin 40 mg tablet Discontinued 20 mg PO DAILY 45 October 08, 2022 3:10pm October 20, 2022 2:31pm Start: 09-08-2022 End: 10-20-2022 take 20 mg by mouth once daily Atorvastatin Discontinu ed 20 MG PO DAILY 45 October 08, 2022 2:10pm October 20, 2022 1:31pm Start: 12-03-2017 End: 09-08-2022 take 1 tablet by mouth at bedtime Atorvastatin 40 mg tablet Discontinued 40 mg PO AT BEDTIME 90 May 10, 2020 7:29am September 08, 2022 11:28am Blood Pressure Monitor (7 sources) Start: 09-23-2022 Blood Pressure Monitor Active 0 .MEDSUPPLY 1 September 22, 2022 11:00pm Check blood pressure daily for hypertension I10 Start: 09-23-2022 Blood Pressure Monitor Active 0 .MEDSUPPLY 1 September 23, 2022 12:00am Check blood pressure daily for hypertension I10 Blood Pressure Monitor kit (2 sources) Start: 09-23-2022 Blood Pressure Monitor kit Active 0 .MEDSUPPLY September 23, 2022 12:00am Check blood pressure daily for hypertension I10 Compress.Stocking,Knee,Reg,L r g (14 sources) Start: 09-24-2022 Compress.Stock ing,Knee,Reg,Lrg Active 0 .MEDSUPPLY September 24, 2022 12:54pm wear daily for venous insufficiency 20-30 mmHg Start: 09-24-2022 Compress.Stock ing,Knee,Reg,Lrg Active 0 .MEDSUPPLY September 24, 2022 1:54pm wear daily for venous insufficiency 20-30 mmHg Start: 09-23-2022 End: 09-24-2022 Compress.Stocking,Knee,Reg,L rg Discontinued 0 .MEDSUPPLY September 22, 2022 11:00pm September 24, 2022 12:54pm wear daily for venous insufficiency 20-30 mmHg Start: 09-23-2022 End: 09-24-2022 Compress.Stocking,Knee,Reg,L rg Discontinued 0 .MEDSUPPLY September 23, 2022 12:00am September 24, 2022 1:54pm wear daily for venous insufficiency 20-30 mmHg Compress.Stocking,Knee,Reg,L rg misc (4 sources) Start: 09-24-2022 Compress.Stocking,Knee,Reg,L rg misc Active 0 .MEDSUPPLY September 24, 2022 1:54pm wear daily for venous insufficiency 20-30 mmHg Start: 09-23-2022 End: 09-24-2022 Compress.Stocking,Knee,Reg,L rg misc Discontinued 0 .MEDSUPPLY September 23, 2022 12:00am September 24, 2022 1:54pm wear daily for venous insufficiency 20-30 mmHg Food Supplemt, Lactose-Reduc ed (Ensure Plus High Protein) 0.08 gram-1.5 kcal/mL Liquid (7 sources) Start: 10-20-2022 Food Supplemt, Lactose-Reduced (Ensure Plus High Protein) 0.08 gram-1.5 kcal/mL Liquid Active 120 mL PO 4 TIMES DAILY 0 October 20, 2022 12:00am Start: 10-20-2022 Food Supplemt, Lactose-Reduced (Ensure Plus High Protein) 0.08 gram-1.5 kcal/mL Liquid Active 120 ML PO 4 TIMES DAILY 0 October 19, 2022 11:00pm Start: 10-20-2022 Food Supplemt, Lactose-Reduced (Ensure Plus High Protein) 0.08 gram-1.5 kcal/mL Liquid Active 120 ML PO 4 TIMES DAILY 0 October 20, 2022 12:00am guaiFENesin 20 mg/ml oral solution (6 sources) Start: 11-05-2022 take 200 mg by mouth every four hours as needed Guaifenesin 100 mg/5 mL liquid Active 200 mg PO Q4H as needed November 05, 2022 12:00am lactulose 667 mg/ml oral solution (7 sources) Osmotic Laxative Start: 10-20-2022 Lactulose 20 gram/30 mL Solution Active 10 g PO THREE TIMES A DAY 0 October 20, 2022 12:00am Titrate to 2 bowel movements daily levETIRAcetam 1000 mg oral tablet (20 sources) Start: 09-08-2022 End: 10-08-2022 Levetiracetam 1,000 mg tablet Active 500 mg PO TWICE A DAY 90 October 08, 2022 3:10pm Start: 09-08-2022 End: 10-08-2022 take 500 mg by mouth twice daily Levetiracetam Active 500 MG PO TWICE A DAY 90 October 08, 2022 2:10pm Start: 01-05-2019 End: 10-17-2019 take 1 tablet by mouth twice daily Levetiracetam (Keppra) 750 mg tablet Discontinued 750 mg PO TWICE A DAY 60 January 05, 2019 1:00am October 17, 2019 2:34pm Start: 12-30-2018 End: 09-08-2022 take 1 tablet by mouth twice daily Levetiracetam 1,000 mg tablet Discontinued 1000 mg PO TWICE A DAY 60 July 04, 2020 12:09pm September 08, 2022 11:28am Start: 09-20-2018 End: 12-30-2018 take 1 tablet by mouth twice daily Levetiracetam 750 mg tablet Discontinued 750 mg PO TWICE A DAY 180 September 20, 2018 9:42am December 30, 2018 4:48pm Start: 12-30-2017 End: 09-20-2018 take 1 tablet by mouth twice daily Levetiracetam 500 MG tablet Discontinued 500 mg PO TWICE A DAY December 30, 2017 1:00am September 20, 2018 9:44am levothyroxine sodium 0.05 mg oral tablet (20 sources) l-Thyroxine Start: 03-09-2023 take 1 tablet by mouth once daily Levothyroxine 50 mcg tablet Active 50 ug PO DAILY March 09, 2023 4:24pm Start: 11-05-2022 End: 03-09-2023 Levothyroxine 50 mcg tablet Discontinued 75 ug PO DAILY November 05, 2022 2:58pm March 09, 2023 4:26pm Start: 11-05-2022 End: 03-09-2023 take 75 ug by mouth once daily Levothyroxine Discontin ued 75 MCG PO DAILY November 05, 2022 1:58pm March 09, 2023 3:26pm Start: 12-27-2019 End: 11-05-2022 take 1 tablet by mouth once daily Levothyroxine 50 mcg tablet Discontinued 50 ug PO DAILY October 08, 2022 3:11pm November 05, 2022 3:01pm Start: 12-03-2017 End: 12-27-2019 take 1 capsule by mouth once daily Levothyroxine 50 mcg capsule Discontinued 50 ug PO DAILY July 13, 2019 9:53am December 27, 2019 10:19am Start: 03-06-2017 levothyroxine 50 mcg (0.05 mg) oral tablet Dose : 50 mcg = 1 tab(s), Oral, qDayAC, 0 Refill(s) Start Date: 03/06/17 Status: Ordered Magnesium Hydroxide (15 sources) Start: 11-05-2022 take 1 mL by mouth once daily as needed Magnesium Hydroxide (Milk Of Magnesia) 400 mg/5 mL suspension Active 30 mL PO DAILY as needed November 05, 2022 12:00am Start: 11-05-2022 take 1 mL by mouth once daily Magnesium Hydroxide (Milk Of Magnesia) 400 mg/5 mL suspension Active 30 ML PO DAILY November 04, 2022 11:00pm Start: 12-15-2017 End: 12-30-2017 take 1 mL by mouth once daily as needed for constipation Magnesium Hydroxide 30 ML Udc Discontinued 30 mL PO DAILY NEEDED as needed for Constipation December 15, 2017 12:00am December 30, 2017 12:15pm Start: 12-15-2017 End: 12-30-2017 take 1 mL by mouth once daily as needed Magnesium Hydroxide Discontinued 30 ML PO DAILY NEEDED December 14, 2017 11:00pm December 30, 2017 11:15am mirtazapine 15 mg oral tablet (20 sources) Start: 10-17-2022 End: 10-20-2022 take 1 tablet by mouth at bedtime Mirtazapine 15 mg tablet Active 15 mg PO AT BEDTIME October 20, 2022 2:34pm Start: 12-03-2017 End: 10-20-2022 Mirtazapine 30 mg tablet Dis continued 15 mg PO DAILY October 08, 2022 3:11pm October 20, 2022 2:33pm Start: 12-03-2017 End: 10-20-2022 take 15 mg by mouth once daily Mirtazapine Discontinue d 15 MG PO DAILY October 08, 2022 2:11pm October 20, 2022 1:33pm Start: 03-10-2017 End: 03-15-2017 mirtazapine 30 mg oral table t Dose : 30 mg = 1 tab(s), Oral, qHS, # 5 tab(s), 0 Refill(s) Start Date: 03/10/17 Stop Date: 03/15/17 Status: Ordered Multivitamin With Iron-Mineral (4 sources) Start: 11-05-2022 take 1 tablet by mouth once daily Multivitamin With Iron-Mineral Active 1 TABLET PO DAILY November 04, 2022 11:00pm administer with a meal Multivitamin With Iron-Mineral tablet extended release (2 sources) Start: 11-05-2022 Multivitamin W ith Iron-Mineral tablet extended release Active 1 {tbl} PO DAILY November 05, 2022 12:00am administer with a meal potassium chloride 20 meq extended release oral tablet (9 sources) Start: 09-24-2022 take 1 tablet by mouth twice daily Potassium Chloride 20 mEq tablet extended release Active 20 meq PO TWICE A DAY 60 September 24, 2022 12:00am pravastatin sodium 40 mg oral tablet (1 source) HMG-CoA Reductase Inhibitor Start: 03-07-2017 pravastatin 40 mg oral tablet Dose : 40 mg = 1 tab(s), Oral, qHS Start Date: 03/07/17 Status: Ordered topiramate 50 mg oral tablet (17 sources) Start: 04-24-2020 End: 10-08-2022 take 1 tablet by mouth twice daily Topiramate 50 mg tablet Active 50 mg PO TWICE A DAY 60 October 08, 2022 3:11pm Start: 04-24-2020 End: 10-08-2022 Topiramate 50 MG tablet Disc ontinued 1 {tbl} PO TWICE A DAY April 24, 2020 1:00am October 08, 2022 3:12pm divalproex sodium 250 mg delayed release oral tablet (20 sources) Mood Stabilizer, Anti-epileptic Agent Start: 09-08-2022 End: 09-16-2022 take 1 tablet by mouth once daily Divalproex 250 mg tablet,delayed release (DR/EC) Active 250 mg PO DAILY 30 September 16, 2022 8:49am Start: 09-08-2022 End: 09-16-2022 take 2 tablets by mouth at bedtime Divalproex 250 mg tablet,delayed release (DR/EC) Active 500 mg PO AT BEDTIME 60 September 16, 2022 8:50am Start: 09-08-2022 End: 09-16-2022 take 500 mg by mouth at bedtime Divalproex Active 500 MG PO AT BEDTIME 60 September 16, 2022 7:50am Start: 12-29-2020 End: 09-08-2022 Divalproex 250 mg tablet ext ended release 24 hr Discontinued 500 mg PO TWICE A DAY December 29, 2020 12:00am September 08, 2022 11:27am Start: 12-29-2020 End: 09-08-2022 take 500 mg by mouth twice daily Divalproex Discontinued 500 MG PO TWICE A DAY December 28, 2020 11:00pm September 08, 2022 10:27am Start: 04-30-2020 End: 07-04-2020 take 1 tablet by mouth once daily Divalproex 250 MG tablet Discontinued 250 mg PO DAILY April 30, 2020 1:00am July 04, 2020 12:08pm Start: 02-27-2020 End: 07-04-2020 take 1 tablet by mouth once daily in the morning, then take 2 tablets by mouth once daily in the evening Divalproex 250 MG tablet extended release 24 hr Discontinued 2 {tbl} PO AT BEDTIME April 30, 2020 4:10pm July 04, 2020 12:12pm Take 1 tablet po qAM and 2 tablets po qPM Start: 02-27-2020 End: 07-04-2020 take 1 tablet by mouth once daily in the morning, then take 2 tablets by mouth once daily in the evening Divalproex Discontinued 2 TABLET PO AT BEDTIME April 30, 2020 3:10pm July 04, 2020 11:12am Take 1 tablet po qAM and 2 tablets po qPM Start: 12-03-2017 End: 02-27-2020 take 2 tablets by mouth twice daily Divalproex 250 mg tablet,delayed release (DR/EC) Discontinued 500 mg PO TWICE A DAY 120 April 28, 2019 3:25pm January 11, 2020 9:23pm Start: 12-03-2017 End: 02-27-2020 take 500 mg by mouth twice daily Divalproex Discontinued 500 MG PO TWICE A DAY 120 April 28, 2019 2:25pm January 11, 2020 8:23pm Start: 03-06-2017 End: 02-27-2020 take 1 tablet by mouth once daily in the morning, then take 2 tablets by mouth once daily in the evening Divalproex 250 mg tablet,delayed release (DR/EC) Discontinued 0 .ROUTE .COMPLEX 90 February 27, 2020 1:00am February 27, 2020 5:44pm Take 1 tablet po every morning and 2 tablets po every evening Completed/Discontinued Medications Medication Drug Class(es) Dates Sig (Normalized) Sig (Original) aluminum hydroxide 80 mg/ml / magnesium hydroxide 80 mg/ml / simethicone 8 mg/ml oral suspension (9 sources) Start: 05-03-2020 End: 10-25-2020 take 1 mL by mouth every six hours as needed Alum-Mag Hydroxide-Simeth 30 ML suspension Discontinued 30 mL PO EVERY 6 HOURS NEEDED as needed for Gastric Burning May 03, 2020 1:00am October 25, 2020 1:15pm Start: 05-03-2020 End: 10-25-2020 take 1 mL by mouth every six hours as needed Alum-Mag Hydroxide-Simeth Discontinued 30 ML PO EVERY 6 HOURS NEEDED May 03, 2020 12:00am October 25, 2020 12:15pm amoxicillin 875 mg / clavulanate 125 mg oral tablet (7 sources) Penicillin-class Antibacterial Start: 10-20-2022 End: 11-05-2022 Amoxicillin-Pot Clavulanate 875-125 mg tablet Discontinued 1 {tbl} PO TWICE A DAY 12 27October 20, 2022 12:00am November 05, 2022 2:58pm Start: 10-20-2022 End: 11-05-2022 take 1 tablet by mouth twice daily Amoxicillin-Pot Clavulanate Discontinued 1 TABLET PO TWICE A DAY 12 27October 19, 2022 11:00pm November 05, 2022 1:58pm aspirin 325 mg oral tablet (18 sources) Platelet Aggregation Inhibitor, Nonsteroidal Anti-inflammatory Drug Start: 12-15-2017 End: 12-31-2017 take 1 tablet by mouth twice daily Aspirin 325 MG tablet Discontinued 325 mg PO TWICE A DAY December 15, 2017 5:24pm December 31, 2017 2:29pm carbidopa 25 mg / levodopa 100 mg oral tablet (20 sources) Aromatic Amino Acid Decarboxylation Inhibitor, Aromatic Amino Acid Start: 04-30-2020 End: 10-25-2020 take 1 tablet by mouth three times daily Carbidopa-Levodopa Discontinued 1 TABLET PO THREE TIMES A DAY July 04, 2020 11:10am October 25, 2020 12:15pm Start: 02-27-2020 End: 10-25-2020 Carbidopa-Levodopa 25-100 mg tablet Discontinued 1 {tbl} PO THREE TIMES A DAY July 04, 2020 12:10pm October 25, 2020 1:15pm Start: 01-11-2020 End: 02-27-2020 take 1 tablet by mouth once daily, then take 1 tablet by mouth twice daily, then take 1 tablet by mouth three times daily Carbidopa-Levodopa (Sinemet) 25-100 mg tablet Discontinued 0 .ROUTE .COMPLEX January 11, 2020 1:00am February 27, 2020 5:53pm 1 tablet po daily for 1 week then 1 tablet po BID for 1 week then 1 tablet po TID thereafter Start: 09-20-2018 End: 01-11-2020 Carbidopa-Levodopa 25-100 mg tablet Discontinued 1 {tbl} PO THREE TIMES A DAY 90 February 21, 2019 9:52am January 11, 2020 12:39pm Start: 09-20-2018 End: 01-11-2020 take 1 tablet by mouth three times daily Carbidopa-Levodopa Discontinued 1 TABLET PO THREE TIMES A DAY 90 February 21, 2019 8:52am January 11, 2020 11:39am celecoxib 200 mg oral capsule (10 sources) Nonsteroidal Anti-inflammatory Drug Start: 03-10-2017 End: 12-15-2017 take 1 capsule by mouth twice daily Celecoxib (Celebrex) 200 mg capsule Discontinued 200 mg PO TWICE A DAY December 03, 2017 12:00am December 15, 2017 11:59am docusate sodium 50 mg / sennosides, longterm 8.6 mg oral tablet (9 sources) Start: 05-03-2020 End: 09-08-2022 Sennosides-Docusat e Sodium 1 TABLET tablet Discontinued 2 {tbl} PO TWICE DAILY NEEDED as needed for Constipation May 03, 2020 1:00am September 08, 2022 11:41am Start: 05-03-2020 End: 09-08-2022 take 2 tablets by mouth twice daily as needed Sennosides-Docusate Sodium Discontinued 2 TABLET PO TWICE DAILY NEEDED May 03, 2020 12:00am September 08, 2022 10:41am 0.8 ml enoxaparin sodium 100 mg/ml prefilled syringe (10 sources) Low Molecular Weight Heparin Start: 12-30-2017 End: 01-04-2018 Enoxaparin 80 MG/0.8 ML syringe Discontinued 70 mg SC Q12@0600,1800 December 30, 2017 1:00am January 04, 2018 4:18pm Start: 03-10-2017 inject 0.4 mL by sub cutaneous injection once daily Lovenox Dose : 40 mg = 0.4 mL, Subcutaneous, qDay, 0 Refill(s) Start Date: 03/10/17 Status: Ordered ergocalciferol 1.25 mg oral capsule (20 sources) Provitamin D2 Compound Start: 08-08-2019 End: 09-08-2022 Ergocalciferol (Vitamin D2) 1,250 mcg (50,000 unit) capsule Discontinued 07756 U PO Q7D May 10, 2020 7:29am October 25, 2020 1:53pm TAKES ON WEDNESDAY Start: 12-12-2017 End: 09-08-2022 Ergocalciferol (Vitamin D2) 50,000 unit capsule Discontinued 33770 U PO Q7D February 21, 2019 9:52am August 08, 2019 4:30pm Food Supplemt, Lactose-Reduced (Ensure Enlive) 120 ML Liquid (18 sources) Start: 12-15-2017 End: 12-30-2017 take 1 mL by mouth four times daily Food Supplemt, Lactose-Reduced (Ensure Enlive) 120 ML Liquid Discontinued 120 mL PO 4 TIMES DAILY December 15, 2017 5:24pm December 30, 2017 12:15pm Start: 12-15-2017 End: 12-30-2017 take 1 mL by mouth four times daily Food Supplemt, Lactose-Reduced (Ensure Enlive) 120 ML Liquid Discontinued 120 ML PO 4 TIMES DAILY December 15, 2017 4:24pm December 30, 2017 11:15am Start: 12-15-2017 End: 12-30-2017 take 1 mL by mouth four times daily Food Supplemt, Lactose-Reduced (Ensure Enlive) 120 ML Liquid Discontinued 120 ML PO 4 TIMES DAILY December 15, 2017 5:24pm December 30, 2017 12:15pm Start: 12-15-2017 End: 12-15-2017 take 1 mL by mouth four times daily Food Supplemt, Lactose-Reduced (Ensure Enlive) 120 ML Liquid Discontinued 120 mL PO 4 TIMES DAILY December 15, 2017 12:00am December 15, 2017 5:25pm Start: 12-15-2017 End: 12-15-2017 take 1 mL by mouth four times daily Food Supplemt, Lactose-Reduced (Ensure Enlive) 120 ML Liquid Discontinued 120 ML PO 4 TIMES DAILY December 14, 2017 11:00pm December 15, 2017 4:25pm Start: 12-15-2017 End: 12-15-2017 take 1 mL by mouth four times daily Food Supplemt, Lactose-Reduced (Ensure Enlive) 120 ML Liquid Discontinued 120 ML PO 4 TIMES DAILY December 15, 2017 12:00am December 15, 2017 5:25pm hospital bed (9 sources) Start: 12-12-2019 End: 05-03-2020 hospital bed Discontinued 0 .Route .MEDSUPPLY 1 December 11, 2019 11:00pm May 03, 2020 10:42am As directed Start: 12-12-2019 End: 05-03-2020 hospital bed Discontinued 0 .Route .MEDSUPPLY December 12, 2019 12:00am May 03, 2020 11:42am As directed melatonin 3 mg oral tablet (9 sources) Start: 05-03-2020 End: 09-08-2022 take 1 tablet by mouth at bedtime as needed Melatonin 3 MG tablet Discontinued 3 mg PO AT BEDTIME NEEDED as needed for Insomnia May 03, 2020 1:00am September 08, 2022 11:40am metoprolol tartrate 25 mg oral tablet (9 sources) beta-Adrenergic Daina Start: 12-31-2017 End: 01-11-2020 take 1 tablet by mouth twice daily Metoprolol Tartrate 25 MG tablet Discontinued 25 mg PO TWICE A DAY December 31, 2017 1:00am January 11, 2020 12:40pm 12 hr morphine sulfate 15 mg extended [...] Date: 03/10/17 Stop Date: 03/13/17 Status: Ordered 24 hr nicotine 0.875 mg/hr transdermal system (18 sources) Cholinergic Nicotinic Agonist Start: 12-15-2017 End: 09-20-2018 apply 21 mg transdermal route once daily Nicotine 21 MG patch Discontinued 21 mg TRANSDERM. DAILY December 15, 2017 5:24pm September 20, 2018 9:21am oxyCODONE hydrochloride 5 mg oral tablet (20 sources) Opioid Agonist Start: 01-04-2018 End: 09-20-2018 take 1 tablet by mouth every four to six hours as needed Oxycodone 5 mg tablet Discontinued 5 mg PO .COMPLEX January 04, 2018 1:00am September 20, 2018 9:21am 5 mg PO q 4 to 6 hours prn; Start: 12-30-2017 End: 01-04-2018 Oxycodone 5 mg tablet Discon tinued 5 mg PO .COMPLEX January 03, 2018 9:29am January 03, 2018 1:00am January 04, 2018 1:10am 5 mg PO daily and q 6 hours prn; Start: 12-30-2017 End: 01-02-2018 take 1 tablet by mouth every six hours as needed for pain Oxycodone 5 MG tablet Discontinued 5 mg PO EVERY 6 HOURS NEEDED as needed for Severe Pain (6-1010) 15 3 December 30, 2017 1:00am January 01, 2018 1:00am January 02, 2018 1:09am Start: 12-15-2017 End: 12-17-2017 take 1 tablet by mouth every six hours as needed for pain Oxycodone 5 MG tablet Discontinued 5 mg PO EVERY 6 HOURS NEEDED as needed for Severe Pain (6-1010) 8 December 15, 2017 12:00am December 16, 2017 12:00am December 17, 2017 12:21am PHENobarbital 32.4 mg oral tablet (10 sources) Start: 03-06-2017 End: 12-15-2017 take 1 tablet by mouth three times daily Phenobarbital 32.4 mg tablet Discontinued 32.4 mg PO THREE TIMES A DAY December 03, 2017 12:00am December 15, 2017 12:01pm phenytoin sodium 100 mg extended release oral capsule (10 sources) Anti-epilept ic Agent Start: 12-03-2017 End: 12-30-2017 take 3 capsules by mouth once daily Phenytoin Sodium Extended 100 mg capsule Discontinued 300 mg PO DAILY December 03, 2017 12:00am December 30, 2017 12:15pm Start: 12-03-2017 End: 12-30-2017 take 300 mg by mouth once daily Phenytoin Sodium Exten ded Discontinued 300 MG PO DAILY December 02, 2017 11:00pm December 30, 2017 11:15am Start: 03-06-2017 take 1 capsule by [facility] once daily in the morning phenytoin 100 mg oral capsule Dose : 300 mg =, Oral, qAM, 0 Refill(s) Start Date: 03/06/17 Status: Ordered 24 hr propranolol hydrochloride 80 mg extended release oral capsule (20 sources) beta-Adrenergic Daina Start: 09-23-2022 End: 09-23-2022 Propranolol 80 mg capsule,extended release 24 hr Discontinued 60 mg PO DAILY September 23, 2022 2:57pm September 23, 2022 3:23pm Start: 09-23-2022 End: 09-23-2022 take 60 mg by mouth once daily Propranolol Discontinue d 60 MG PO DAILY September 23, 2022 1:57pm September 23, 2022 2:23pm Start: 09-23-2022 End: 10-20-2022 take 1 capsule by mouth once daily Propranolol 60 mg capsule,extended release 24 hr Discontinued 60 mg PO DAILY September 23, 2022 12:00am October 20, 2022 2:33pm Start: 09-16-2022 End: 09-23-2022 take 1 capsule by mouth once daily Propranolol 80 mg capsule,extended release 24 hr Discontinued 80 mg PO DAILY September 16, 2022 4:52pm September 23, 2022 3:01pm Start: 09-08-2022 End: 09-16-2022 Propranolol 80 mg capsule,ex tended release 24 hr Discontinued 60 mg PO DAILY September 16, 2022 8:50am September 16, 2022 4:53pm Start: 09-08-2022 End: 09-16-2022 take 60 mg by mouth once daily Propranolol Discontinue d 60 MG PO DAILY September 16, 2022 7:50am September 16, 2022 3:53pm Start: 12-29-2020 End: 09-08-2022 take 1 capsule by mouth once daily Propranolol 80 mg capsule,extended release 24 hr Discontinued 80 mg PO DAILY December 29, 2020 12:00am September 08, 2022 11:28am Start: 10-29-2020 End: 10-29-2020 take 1 capsule by mouth once daily Propranolol 60 mg capsule,extended release 24 hr Discontinued 60 mg PO DAILY October 29, 2020 12:00am October 29, 2020 11:11am Start: 04-24-2020 End: 10-29-2020 take 1 tablet by mouth once daily Propranolol 60 mg tablet Discontinued 60 mg PO DAILY October 25, 2020 1:25pm October 29, 2020 10:51am rivaroxaban 20 mg oral tablet (20 sources) Factor Xa Inhibitor Start: 01-04-2018 End: 09-16-2022 take 1 tablet by mouth once daily Rivaroxaban 20 mg tablet Discontinued 20 mg PO DAILY August 08, 2020 1:40pm October 25, 2020 1:53pm TAKE 1 TABLET BY MOUTH DAILY tamsulosin hydrochloride 0.4 mg oral capsule (20 sources) alpha-Adrenergic Daina Start: 12-03-2017 End: 10-08-2022 take 1 capsule by mouth at bedtime Tamsulosin (Flomax) 0.4 mg capsule Discontinued 0.4 mg PO AT BEDTIME 90 September 08, 2022 11:29am October 08, 2022 3:12pm Problems Active Problems Problem Classification Problem Date Documented Date Episodic/Chronic Cardiac dysrhythmias (13 sources) Tachycardia; Translations: [Tachycardia, unspecified] 09-23-2022 Episodic Coagulation and hemorrhagic disorders (9 sources) Thrombocytopenic disorder; Translations: [Thrombocytopenia, unspecified] 01-17-2021 Chronic Disorders of teeth and jaw (11 sources) Gingivitis; Translations: [Chronic gingivitis, plaque induced] 10-17-2022 Chronic Epilepsy; convulsions (20 sources) Seizure disorder; Translations: [Epilepsy, unspecified, intractable, without status epilepticus] 07-01-2018 Chronic Epilepsy; convulsions (10 sources) Seizure; Translations: [Unspecified convulsions] 03-08-2017 Episodic Fluid and electrolyte disorders (18 sources) Mild dehydration; Translations: [Dehydration] 01-17-2021 Episodic Heart valve disorders (1 source) Cardiac murmur, unspecified; Translations: [Cardiac murmur, unspecified] Onset: 06-29-2024 Episodic Malaise and fatigue (14 sources) Asthenia; Translations: [Other malaise] 03-17-2017 Episodic Mycoses (9 sources) Onychomycosis due to dermatophyte ; Translations: [Tinea unguium] 01-17-2021 Episodic Osteoarthritis (1 source) Osteoarthritis 03-17-2017 Chronic Other aftercare (8 sources) Long-term current use of anticoagulant; Translations: [oysterman (current) use of anticoagulants] 10-17-2022 Episodic Other aftercare (3 sources) correction (current) use of anticoagulants; Translations: [Long-term (current) use of anticoagulants] 10-17-2022 Episodic Other connective tissue disease (9 sources) Thigh pain; Translations: [Pain in left thigh] 04-25-2020 Episodic Other connective tissue disease (18 sources) Pain in toe; Translations: [Pain in left toe(s)] 01-19-2021 Episodic Other fractures (1 source) Fracture of bone of hip region 03-17-2017 Episodic Other hematologic conditions (8 sources) H/O: blood disorder; Translations: [Personal history of diseases of the blood and blood-forming organs and certain disorders involving the immune mechanism] 10-17-2022 Episodic Other hematologic conditions (3 sources) Personal history of diseases of the blood and blood-forming organs and certain disorders involving the immune mechanism; Translations: [Personal history of diseases of blood and blood-forming organs] 10-17-2022 Episodic Other nutritional; endocrine; and metabolic disorders (8 sources) Adult failure to thrive syndrome; Translations: [Adult failure to thrive] 10-17-2022 Episodic Other nutritional; endocrine; and metabolic disorders (3 sources) Adult failure to thrive; Translations: [Adult failure to thrive] 10-17-2022 Episodic Other nutritional; endocrine; and metabolic disorders (2 sources) Failure to thrive 12-28-2020 Episodic Other screening for suspected conditions (not mental disorders or infectious disease) (1 source) Encounter for screening for cardiovascular disorders; Translations: [Encounter for screening for cardiovascular disorders] Onset: 05-02-2024 Episodic Parkinson`s disease (9 sources) Parkinson's disease; Translations: [Parkinson's disease] 09-23-2022 Chronic Residual codes; unclassified (9 sources) Bilateral lower limb edema; Translations: [Localized edema] 09-23-2022 Episodic Residual codes; unclassified (4 sources) Localized edema; Translations: [Edema] 09-23-2022 Episodic Residual codes; unclassified (6 sources) History of clinical finding in subject; Translations: [Personal history of other specified conditions] 10-17-2022 Episodic Residual codes; unclassified (5 sources) Personal history of other specified conditions; Translations: [Personal history of other specified diseases] 10-17-2022 Episodic Thyroid disorders (14 sources) Hypothyroidism; Translations: [Hypothyroidism, unspecified] 03-06-2017 Chronic Unclassified (7 sources) Failure to thrive; Translations: [Failure to thrive] 12-28-2020 Viral infection (9 sources) Disease caused by 2019-nCoV; Translations: [COVID-19] 01-17-2021 Episodic Past or Other Problems Problem Classification Problem Date Documented Da te Episodic/Chronic Other lower respiratory disease (2 sources) Cough; Translations: [Cough] Onset: 05-01-2022 Episodic Results Test Name Value Interpretation Reference Range Facility Echocardiogram study reportO rdered By: Yoni Vogel on 06-26-2024 Study report [facility] [place] [address] Echo Complete 06/23/24 1457 MR#: [id number] Acct: [id number] Name: MIKE ADAMS Rep #:[id number] : 1960 63 From: Yoni Rowley Attending Dr: Femi Abebe MARKET RISK ANALYST-C Status: REG CLI Ordering Dr: Femi Abebe MARKET RISK ANALYST-C Brenton e: 06/23/24 Location: [facility] Sex: M C Admitted: Reason For Study Reason For Study: Murmur Procedure This was a 2D Doppler, Color Flow transthoracic echocardiogram. Technically difficult study, patient unable to stop shaking and was uncomfortable. Exam performed in department. Left Ventricle Normal LV size. Left ventricular systolic function is normal. The left ventricular ejection fraction is 65 %. Stage 1 diastolic dysfunction. No regional wall motion abnormalities noted. Right Ventricle Normal RV size. Normal systolic function. Atria Normal left atrium. Normal right atrium. Mitral Valve Normal mitral valve. Tricuspid Valve Normal tricuspid valve. Aortic Valve Trisinus/trileaflet aortic valve. Pulmonic Valve Normal pulmonic valve. Great Vessels Normal aortic root. The pulmonary artery is normal size. Inferior vena cava collapse with respiration. Pericardium/Pleural No pericardial effusion. MMode/2D Measurements & Calculations LVIDd: 3.1 cm IVSd: 0.87 cm Ao root diam: 3.4 cm LVIDs: 2.0 cm LVPWd: 0.62 cm FS: 35.9 % ____ LAV(MOD-sp2): 22.6 ml Time Measurements MV dec time: 0.23 sec Doppler Measurements & Calculations MV E max linh: 85.5 cm/sec Lat Peak E' Linh: 8.1 cm/sec Med Peak E' Linh: 5.6 cm/sec MV A max linh: 94.0 cm/sec E/E' lat: 10.6 E/E' med: 15.3 MV E/A: 0.91 ____ MV V2 max: 113.9 cm/sec MV P1/2t max linh: 81.1 cm/sec Ao V2 max: 114.0 cm/sec MV max P.2 mmHg MV P1/2t: 67.6 msec Ao max P.2 mmHg MV V2 mean: 66.4 cm/sec Ao V2 mean: 81.2 cm/sec MV mean P.0 mmHg MV dec slope: 351.6 cm/sec2 Ao mean P.0 mmHg MV V2 VTI: 22.1 cm MVA(P1/2t): 3.3 cm2 Ao V2 VTI: 20.4 cm AV (velocity ratio): 0.93 ____ LV V1 max: 109.4 cm/sec LV V1 max P.8 mmHg LV V1 mean P.6 mmHg LV V1 mean: 76.2 cm/sec LV V1 VTI: 19.0 cm ECHO/Echo Complete Interpretation Summary Normal LV size. Left ventricular systolic function is normal. The left ventricular ejection fraction is 65 %. Stage 1 diastolic dysfunction. __ Ordering Physician: Femi Abebe Referring Physician: Femi Abebe Performed By: Suhail Montero RCS 06/26/24912 Date _ Yoni Vogel MD CC: MARKET RISK ANALYST-C Manuel Zhou; Femi [facility] MARKET RISK ANALYST-C Beam ~ Date Dictated: 06/23/241456 Date Transcribed: 06/26/24912 Cast Shell Grinder: Signed [facility] Work Phone: Echo Completeon 06-23-2024 Echo Complete [facility] [address] [place] [address] Echo Complete 06/23/241456 MR#: [id number] Acct: [id number] Name: MIKE ADAMS Rep #: [id number] : 1960 63 From: Yoni Vogel MD Attending Dr: Femi Abebe [facility] MARKET RISK ANALYSTBlayneC Status: REG CLI Ordering Dr: Femi Abebe [facility] MARKET RISK ANALYST-C Date: 06/23/24 Location: [facility] Sex: M C Admitted: Reason For Study Reason For Study: Murmur Procedure This was a 2D Doppler, Color Flow transthoracic echocardiogram. Technically difficult study, patient unable to stop shaking and was uncomfortable. Exam performed in department. Left Ventricle Normal LV size. Left ventricular systolic function is normal. The left ventricular ejection fraction is 65 %. Stage 1 diastolic dysfunction. No regional wall motion abnormalities noted. Right Ventricle Normal RV size. Normal systolic function. Atria Normal left atrium. Normal right atrium. Mitral Valve Normal mitral valve. Tricuspid Valve Normal tricuspid valve. Aortic Valve Trisinus/trileaflet aortic valve. Pulmonic Valve Normal pulmonic valve. Great Vessels Normal aortic root. The pulmonary artery is normal size. Inferior vena cava collapse with respiration. Pericardium/Pleural No pericardial effusion. MMode/2D Measurements Calculations LVIDd: 3.1 cm IVSd: 0.87 cm Ao root diam: 3.4 cm LVIDs: 2.0 cm LVPWd: 0.62 cm FS: 35.9 % __ LAV(MOD-sp2): 22.6 ml Time Measurements MV dec time: 0.23 sec Doppler Measurements Calculations MV E max linh: 85.5 cm/sec Lat Peak E' Linh: 8.1 cm/sec Med Peak E' Linh: 5.6 cm/sec MV A max linh: 94.0 cm/sec E/E' lat: 10.6 E/E' med: 15.3 MV E/A: 0.91 __ MV V2 max: 113.9 cm/sec MV P1/2t max linh: 81.1 cm/sec Ao V2 max: 114.0 cm/sec MV max P.2 mmHg MV P1/2t: 67.6 msec Ao max P.2 mmHg MV V2 mean: 66.4 cm/sec Ao V2 mean: 81.2 cm/sec MV mean P.0 mmHg MV dec slope: 351.6 cm/sec2 Ao mean P.0 mmHg MV V2 VTI: 22.1 cm MVA(P1/2t): 3.3 cm2 Ao V2 VTI: 20.4 cm AV (velocity ratio): 0.93 __ LV V1 max: 109.4 cm/sec LV V1 max P.8 mmHg LV V1 mean P.6 mmHg LV V1 mean: 76.2 cm/sec LV V1 VTI: 19.0 cm ECHO/Echo Complete Interpretation Summary Normal LV size. Left ventricular systolic function is normal. The left ventricular ejection fraction is 65 %. Stage 1 diastolic dysfunction. __ Ordering Physician: Femi Abebe Referring Physician: Femi Abebe Performed By: Suhail Montero [facility] 06/26/24912 Date Yoni Vogel MD CC: KATERIN Zhou; Femi Fanny Abebe Date Dictated: 06/23/24 1457 Date Transcribed: 06/26/24912 Cast Shell Grinder: Signed [facility] Absolute lymphocyte countOrd ered By: Femi Abebe on 04-20-2024 Lymphocytes Auto (Unsp spec) [#/Vol] 3.10 10*3/uL 0.83-4.51 [facility] Absolute neutrophil countOrd ered By: Zebulun Beam on 04-20-2024 Neutrophils (Bld) [#/Vol] 2.4 10*3/uL 2.0-7.7 [facility] Automated lymphocyte count a s percentage of total leukocytesOrdered By: Zebulun Beam on 04-20-2024 Lymphocytes/100 WBC Auto (Unsp spec) 47.5 % High 19-41 [facility] BUN/creatinine ratioOrdered By: bulun Beam on 04-20-2024 Urea nitrogen/Creatinine [Mass ratio] 27.5 mg/mg High 10-20 [facility] Basophil percentageOrdered B y: Zebulun Beam on 04-20-2024 Basophils/100 WBC (Bld) 1.1 % High 0-1 [facility] Bilirubin, totalOrdered By: bulun Beam on 04-20-2024 Bilirubin [Mass/Vol] 0.43 mg/dL 0.00-1.30 [facility] CBC W/Diff, Automatedon 03-26 PLT EST ADEQUATE Normal ADEQ [facility] Comment on above: Performed By: #### L 501.9520, L100.0100, L501.8100, L500.4100, L501.9985, L500.4050 #### [facility] [address] [place], [place] [address], [address] Calculated very low density lipoprotein (VLDL) cholesterol measurementOrdered By: bulun Beam on 04-20-2024 Calculated very low density lipoprotein (VLDL) cholesterol measurement 17 mg/dL 5-40 [facility] VLDL Cholesterol 17 mg/dL 5-40 [facility] Carbon dioxide measurementOr dered By: Jose Angelbulun Beam on 04-20-2024 CO2 [Moles/Vol] 19.8 mmol/L Low 22.0-29.0 [facility] Chloride measurementOrdered By: bulusteve Beam on 04-20-2024 Chloride [Moles/Vol] 107 mmol/L 96-108 [facility] Comprehensive Metabolic Prof ilon 04-20-2024 Albumin [Mass/Vol] 4.0 g/dL Normal 3.4-4.8 [facility] Comment on above: Performed By: #### L 501.9520, L100.0100, L501.8100, L500.4100, L501.9985, L500.4050 #### [facility] [address] [place], [address] Albumin/Globulin [Mass ratio] 1.1 {ratio} Normal 0.9-2.4 [facility] Comment on above: Performed By: #### L 501.9520, L100.0100, L501.8100, L500.4100, L501.9985, L500.4050 #### [facility] [address] [place], [address] ALK PHOS 50 U/L Normal 40-129 [facility] Comment on above: Performed By: #### L 501.9520, L100.0100, L501.8100, L500.4100, L501.9985, L500.4050 #### [facility] [address] [place], [address] ALT [Catalytic activity/Vol] 5 U/L Normal <=46 [facility] Comment on above: Performed By: #### L 501.9520, L100.0100, L501.8100, L500.4100, L501.9985, L500.4050 #### [facility] [address] [place], [address] Anion gap [Moles/Vol] 12 mmol/L Normal 5-15 [facility] Comment on above: Performed By: #### L 501.9520, L100.0100, L501.8100, L500.4100, L501.9985, L500.4050 #### [facility] [address] [place], [address] AST [Catalytic activity/Vol] 31 U/L Normal <=37 [facility] Comment on above: Result Comment: Hemo lysis present, Results??could be affected. ?? Performed By: #### L 501.9520, L100.0100, L501.8100, L500.4100, L501.9985, L500.4050 #### [facility] [address] [place], [address] Bilirubin [Mass/Vol] 0.43 mg/dL Normal 0.00-1.30 [facility] Comment on above: Performed By: #### L 501.9520, L100.0100, L501.8100, L500.4100, L501.9985, L500.4050 #### [facility] [address] [place], [address] BUN/CRE 27.5 RATIO High 10-20 [facility] Comment on above: Performed By: #### L 501.9520, L100.0100, L501.8100, L500.4100, L501.9985, L500.4050 #### [facility] [address] [place], [address] Calcium [Mass/Vol] 9.5 mg/dL Normal 7.6-11.0 [facility] Comment on above: Performed By: #### L 501.9520, L100.0100, L501.8100, L500.4100, L501.9985, L500.4050 #### [facility] [address] [place], [address] Chloride [Moles/Vol] 107 mmol/L Normal 96-108 [facility] Comment on above: Performed By: #### L 501.9520, L100.0100, L501.8100, L500.4100, L501.9985, L500.4050 #### [facility] [address] [place], [address] CO2 [Moles/Vol] 19.8 mmol/L Low 22.0-29.0 [facility] Comment on above: Performed By: #### L 501.9520, L100.0100, L501.8100, L500.4100, L501.9985, L500.4050 #### [facility] [address] [place], [address] Creatinine [Mass/Vol] 0.89 mg/dL Normal 0.70-1.20 [facility] Comment on above: Performed By: #### L 501.9520, L100.0100, L501.8100, L500.4100, L501.9985, L500.4050 #### [facility] [address] [place], [address] GFR/1.73 sq M.predicted among non-blacks MDRD (S/P/Bld) [Vol rate/Area] 96 mL/min/{1.73_m2} Normal >60 [facility] Comment on above: Result Comment: mL/m in/1.73m2 CKD-EPI Creatinine Equation (2020) Performed By: #### L 501.9520, L100.0100, L501.8100, L500.4100, L501.9985, L500.4050 #### [facility] [address] [place], [address] Globulin (S) [Mass/Vol] 3.6 g/dL Normal 2.2-4.2 [facility] Comment on above: Performed By: #### L 501.9520, L100.0100, L501.8100, L500.4100, L501.9985, L500.4050 #### [facility] [address] [place], [address] Glucose [Mass/Vol] 89 mg/dL Normal 70-99 [facility] Comment on above: Performed By: #### L 501.9520, L100.0100, L501.8100, L500.4100, L501.9985, L500.4050 #### [facility] [address] [place], [address] Potassium [Moles/Vol] 4.2 mmol/L Normal 3.3-5.1 [facility] Comment on above: Result Comment: Hemo lysis present, Results??could be affected. ?? Performed By: #### L 501.9520, L100.0100, L501.8100, L500.4100, L501.9985, L500.4050 #### [facility] [address] [place], [address] Sodium [Moles/Vol] 138 mmol/L Normal 133-145 [facility] Comment on above: Performed By: #### L 501.9520, L100.0100, L501.8100, L500.4100, L501.9985, L500.4050 #### [facility] [address] [place], [address] T PROT 7.6 g/dL Normal 5.9-8.4 [facility] Comment on above: Performed By: #### L 501.9520, L100.0100, L501.8100, L500.4100, L501.9985, L500.4050 #### [facility] [address] [place], [address] Urea nitrogen [Mass/Vol] 24 mg/dL High 4-19 [facility] Comment on above: Performed By: #### L 501.9520, L100.0100, L501.8100, L500.4100, L501.9985, L500.4050 #### [facility] [address] [place], [address] Eosinophil percentageOrdered By: Femi Beam on 04-20-2024 Eosinophils/100 WBC (Bld) 4.4 % 0-5 [facility] Erythrocyte distribution wid th ratioOrdered By: angelica Beam on 04-20-2024 Erythrocyte distribution width (RBC) [Ratio] 13.0 % 11.6-14.6 [facility] Erythrocyte distribution wid th standard deviationOrdered By: [facility] Beam on 04-20-2024 Erythrocyte distribution width (RBC) [Entitic vol] 46.5 fL High 35.1-43.9 [facility] Erythrocyte distribution width (RBC) [Ratio] 46.5 fl High 35.1-43.9 [facility] GFR/1.73 sq M.predicted lilly g non-blacks MDRD (S/P/Bld) [Vol rate/Area]Ordered By: Femi Abebe on 04-20-2024 Estimated GFR (MDRD) Non-Af Amer 96 >60 [facility] Comment on above: mL/min/1.73m2 CKD-EP I Creatinine Equation (2020) Glomerular filtration rate ( GFR) estimation/1.73 sq m using serum, plasma, or whole bOrdered By: angelica Abebe on 04-20-2024 GFR/1.73 sq M.predicted among non-blacks MDRD (S/P/Bld) [Vol rate/Area] 96 mL/min/{1.73_m2} >60 [facility] Comment on above: mL/min/1.73m2 CKD-EP I Creatinine Equation (2020) Hematocrit Auto (Bld) [Volum e fraction]Ordered By: angelica Abebe on 04-20-2024 Hematocrit (Bld) [Volume fraction] 45.5 % 40-54 [facility] Hemoglobin A1con 04-20-2024 HbA1c (Bld) [Mass fraction] 5.2 % Low <=5.6 [facility] Comment on above: Performed By: #### L 501.9520, L100.0100, L501.8100, L500.4100, L501.9985, L500.4050 #### [facility] [address] [place], [place], [id number] Hemoglobin A1c percentageOrd ered By: Femi Abebe on 04-20-2024 HbA1c (Bld) [Mass fraction] 5.2 % Low >5.7 [facility] Hemoglobin measurementOrdere d By: Femi Abebe on 04-20-2024 Hemoglobin (Bld) [Mass/Vol] 14.4 g/dL 13.0-16.5 [facility] Immature granulocytes/100 WB C Auto (Bld)Ordered By: Femi Abebe on 04-20-2024 Immature granulocytes/100 WBC (Bld) 0.200 % 0.0-0.9 [facility] Comment on above: IG% - Immature Granu locytes (promyelocytes, myelocytes and metamyelocytes) > 1% indicates that a LEFT SHIFT is Present. LDL calc ser/plasOrdered By: Femi Abebe on 04-20-2024 Cholesterol in LDL [Mass/Vol] 122 mg/dL [facility] Comment on above: Upnkokyomh=689-792 m g/dL & Higher Advf=248 mg/dL or greater LDL Cholesterol, Calculated 122 mg/dL [facility] Comment on above: Cfaqgnhsvn=953-061 m g/dL & Higher Akmn=294 mg/dL or greater Laboratory - Chemistry and C hemistry - challengeOrdered By: Femi Abebe on 04-20-2024 AST [Catalytic activity/Vol] 31 U/L <38 [facility] Comment on above: Hemolysis present, R esults could be affected. Lipid Profileon 04-20-2024 CHOL:HDL 3.20 Normal [facility] Comment on above: Performed By: #### L 501.9520, L100.0100, L501.8100, L500.4100, L501.9985, L500.4050 #### [facility] [address] [place], [place], [id number] Cholesterol [Mass/Vol] 202 mg/dL High <=200 [facility] Comment on above: Result Comment: Chol esterol level, Desirable <200 mg/dL Borderline high cholesterol 200-239 mg/dL High cholesterol >=240 mg/dL Recommendations of the NCEP Adult Treatment Panel for the following risk-cutoff thresholds for the [place] population. Performed By: #### L 501.9520, L100.0100, L501.8100, L500.4100, L501.9985, L500.4050 #### [facility] [address] [place], [address] Cholesterol in HDL [Mass/Vol] 63 mg/dL Normal [facility] Comment on above: Result Comment: Diana onal Cholesterol Education Program (NCEP) guidelines: <40 mg/dL: Low HDL-cholesterol (major risk factor for CHD) >= 60 mg/dL: High HDL-cholesterol (negative risk factor for CHD) HDL-cholesterol is affected by a number of factors, e.g. smoking, exercise, hormones, sex and age. Performed By: #### L 501.9520, L100.0100, L501.8100, L500.4100, L501.9985, L500.4050 #### [facility] [address] [place], [address] Cholesterol in LDL [Mass/Vol] 122 mg/dL Normal [facility] Comment on above: Result Comment: Bord kqgckd=717-287 mg/dL Higher Yslw=449 mg/dL or greater Performed By: #### L 501.9520, L100.0100, L501.8100, L500.4100, L501.9985, L500.4050 #### [facility] [address] [place], [address] Cholesterol in VLDL [Mass/Vol] 17 mg/dL Normal 5-40 [facility] Comment on above: Performed By: #### L 501.9520, L100.0100, L501.8100, L500.4100, L501.9985, L500.4050 #### [facility] [address] [place], [address] Triglyceride [Mass/Vol] 86 mg/dL Normal [facility] Comment on above: Result Comment: The drugs N-Acetylcysteine and Metamizole may falsely depress this assay. Normal range: <150 mg/dL Borderline High: 150-199 mg/dL High: 200-499 mg/dL Very High: >500 mg/dL Performed By: #### L 501.9520, L100.0100, L501.8100, L500.4100, L501.9985, L500.4050 #### [facility] [address] [place], [address] Lymphocytes Auto (Unsp spec) [#/Vol]Ordered By: Zejuanitolun Beam on 04-20-2024 Lymphocytes (Bld) [#/Vol] 3.10 10*3/uL 0.83-4.51 [facility] Lymphocytes/100 WBC Auto (Un sp spec)Ordered By: Zebulun Beam on 04-20-2024 Lymphocytes/100 WBC (Bld) 47.5 % High 19-41 [facility] MCV (mean corpuscular volume ) determinationOrdered By: juanitolun Beam on 04-20-2024 MCV (RBC) [Entitic vol] 97.2 fL High 80-94 [facility] Mean corpuscular hemoglobin (MCH) determinationOrdered By: [facility] Beam on 04-20-2024 MCH (RBC) [Entitic mass] 30.8 pg 27.0-32.0 [facility] Mean corpuscular hemoglobin concentration (MCHC) determinationOrdered By: juanitolun Beam on 04-20-2024 MCHC (RBC) [Mass/Vol] 31.6 g/dL Low 32-36 [facility] Mean platelet volume determi nationOrdered By: juanitolun Beam on 04-20-2024 Platelet mean volume (Bld) [Entitic vol] 10.4 fL 6.2-12.0 [facility] Monocyte percentageOrdered B y: Zebulun Beam on 04-20-2024 Monocytes/100 WBC (Bld) 10.7 % High 0-10 [facility] Neutrophil percentageOrdered By: Zebulun Beam on 04-20-2024 Neutrophils/100 WBC (Bld) 36.1 % Low 47-70 [facility] Nucleated red blood cell per centageOrdered By: Zejuanitolun Beam on 04-20-2024 Nucleated RBC/100 WBC (Bld) [Ratio] 0 % 0-5 [facility] Platelet countOrdered By: Jose Angel Abebe on 04-20-2024 Platelet Count See comment 150-450 [facility] Comment on above: Please note: For thi s sample, a platelet estimate is provided rather than a platelet count due to platelet clumping. Other parameters associated with this sample are not affected by platelet clumping. If a more accurate platelet count is required, a redraw of the patient will be necessary. Platelet estimateOrdered By: Femi Abebe on 04-20-2024 Platelets LM Ql (Bld) ADEQUATE ADEQ [facility] Platelets LM Ql (Bld)Ordered By: Femi Abebe on 04-20-2024 [facility] RBC Auto (Bld) [#/Vol]Ordere d By: Femi Abebe on 04-20-2024 RBC (Bld) [#/Vol] 4.68 10*6/uL 4.6-6.2 [facility] Screening total cholesterol/ high density lipoprotein (HDL) cholesterol ratioOrdered By: Femi Abebe on 04-20-2024 Cholesterol.total/Choles terol in HDL [Mass ratio] 3.20 {ratio} [facility] Serum creatinine measurement (mass/volume)Ordered By: Femi Abebe on 04-20-2024 Creatinine [Mass/Vol] 0.89 mg/dL 0.70-1.20 [facility] Serum globulin measurementOr dered By: Femi Abebe on 04-20-2024 Globulin (S) [Mass/Vol] 3.6 g/dL 2.2-4.2 [facility] Serum glucose measurement (m ass/volume)Ordered By: Femi Abebe on 04-20-2024 Glucose [Mass/Vol] 89 mg/dL 70-99 [facility] Serum or plasma alanine mijares otransferase (ALT) measurementOrdered By: Femi Abebe on 04-20-2024 ALT [Catalytic activity/Vol] 5 U/L <47 [facility] Serum or plasma albumin jef urement (mass/volume)Ordered By: Femi Abebe on 04-20-2024 Albumin [Mass/Vol] 4.0 g/dL 3.4-4.8 [facility] Serum or plasma albumin/glob ulin mass ratioOrdered By: Femi Abebe on 04-20-2024 Albumin/Globulin [Mass ratio] 1.1 {ratio} 0.9-2.4 [facility] Serum or plasma alkaline sushil sphatase measurementOrdered By: juanitosteve Abebe on 04-20-2024 ALP [Catalytic activity/Vol] 50 U/L 40-129 [facility] Serum or plasma anion gap de termination (moles/volume)Ordered By: Torysteve Abebe on 04-20-2024 Anion gap [Moles/Vol] 12 mmol/L 5-15 [facility] Serum or plasma calcium jef urement (mass/volume)Ordered By: juanitosteve [facility] on 04-20-2024 Calcium [Mass/Vol] 9.5 mg/dL 7.6-11.0 [facility] Serum or plasma cholesterol in HDL measurement (mass/volume)Ordered By: Torysteve Abebe on 04-20-2024 Cholesterol in HDL [Mass/Vol] 63 mg/dL >40 [facility] Comment on above: National Cholesterol Education Program (NCEP) guidelines:<40 mg/dL: Low HDL-cholesterol (major risk factor for CHD)>= 60 mg/dL: High HDL-cholesterol (negative risk factor for CHD)HDL-cholesterol is affected by a number of factors, e.g. smoking, exercise, hormones, sex and age. Serum or plasma cholesterol measurement (mass/volume)Ordered By: Femi Abebe on 04-20-2024 Cholesterol [Mass/Vol] 202 mg/dL High <201 [facility] Comment on above: Cholesterol level, D esirable <200 mg/dLBorderline high cholesterol 200-239 mg/dLHigh cholesterol >=240 mg/dLRecommendations of the NCEP Adult Treatment Panel for the following risk-cutoff thresholds for the [place] population. Serum or plasma potassium me asurementOrdered By: Femi Abebe on 04-20-2024 Potassium [Moles/Vol] 4.2 mmol/L 3.3-5.1 [facility] Comment on above: Hemolysis present, R esults could be affected. Serum or plasma sodium measu rement (moles/volume)Ordered By: Femi Abebe on 04-20-2024 Sodium [Moles/Vol] 138 mmol/L 133-145 [facility] Serum or plasma urea nitroge n measurement (mass/volume)Ordered By: Femi Abebe on 04-20-2024 Urea nitrogen [Mass/Vol] 24 mg/dL High 4-19 [facility] Serum or plasma valproate me asurement (mass/volume)Ordered By: Femi Abebe on 04-20-2024 Valproate [Mass/Vol] 84 ug/mL 50-100 [facility] [place] Comment on above: Valproic Acid concen trations >100 ug/mL are potentially toxic. TSH DL <= 0.005 mIU/L QnOrde red By: Femi Abebe on 04-20-2024 Thyroid Stimulating Hormone (TSH) 3.440 uIU/mL 0.300-4.200 [facility] TSH Qn 3.440 uIU/mL 0.300-4.200 [facility] Thyroid Stim Hormone (TSH)on 04-20-2024 TSH 3.440 uIU/mL Normal 0.300-4.200 [facility] Comment on above: Performed By: #### L [id number], L100.0100, L501.8100, L500.4100, L501.9985, L500.4050 #### [facility] [address] [place], [address] Total proteinOrdered By: Marquis Abebe on 04-20-2024 Protein [Mass/Vol] 7.6 g/dL 5.9-8.4 [facility] Triglycerides measurementOrd ered By: Femi Abebe on 04-20-2024 Triglyceride [Mass/Vol] 86 mg/dL <199 [facility] Comment on above: The drugs N-Acetylcy steine and Metamizole may falsely depress this assay. Normal range: <150 mg/dLBorderline High: 150-199 mg/dLHigh: 200-499 mg/dLVery High: >500 mg/dL Valproate [Mass/Vol]Ordered By: Femi Abebe on 04-20-2024 Valproic Acid (Depakene) Level 84 ug/mL 50-100 [facility] Comment on above: Valproic Acid concen trations >100 ug/mL are potentially toxic. Valproic Acid (Depakene) Lev suleiman 04-20-2024 VALPROIC ACID 84 ug/mL Normal 50-100 [facility] Comment on above: Result Comment: Valp roic Acid concentrations >100 ug/mL are potentially toxic. Performed By: #### L [id number], L100.0100, L501.8100, L500.4100, L501.9985, L500.4050 #### [facility] [address] [place], [address] White blood cell (WBC) count Ordered By: Femi Abebe on 04-20-2024 WBC (Bld) [#/Vol] 6.5 10*3/uL 4.4-11.0 [facility] Basophil percentageOrdered B y: Francisco Newsome on 04-08-2023 Ammonia (P) [Moles/Vol] 30.0 umol/L 11-32 [facility] Chloride [Moles/Vol] 111 mmol/L 98-107 [facility] Glucose [Mass/Vol] 96 mg/dL 74-106 [facility] Hemoglobin (Bld) [Mass/Vol] 14.1 g/dL 13.0-16.5 [facility] Potassium [Moles/Vol] 3.9 mmol/L 3.5-5.1 [facility] Sodium [Moles/Vol] 141 mmol/L 136-145 [facility] WBC (Bld) [#/Vol] 7.5 10*3/uL 4.4-11.0 [facility] Determination of erythrocyte mean corpuscular volume (MCV)Ordered By: Francisco Newsome on 04-08-2023 MCV (RBC) [Entitic vol] 92.2 fL 80-94 [facility] Erythrocyte distribution wid th ratioOrdered By: Francisco Newsome on 04-08-2023 Erythrocyte distribution width (RBC) [Ratio] 13.6 % 11.6-14.6 [facility] Erythrocyte distribution wid th standard deviationOrdered By: Francisco Newsome on 04-08-2023 Erythrocyte distribution width (RBC) [Entitic vol] 46.4 fL 35.1-43.9 [facility] Hematocrit Auto (Bld) [Volum e fraction]Ordered By: Francisco Newsome on 04-08-2023 Hematocrit (Bld) [Volume fraction] 44.7 % 40-54 [facility] - Chemistry and C hemistry - challengeOrdered By: Francisco Newsome on 04-08-2023 CO2 [Moles/Vol] 24.0 mmol/L 21.0-32.0 [facility] Urea nitrogen/Creatinine [Mass ratio] 36.0 mg/mg 10-20 [facility] - Hematology and Cell countsOrdered By: Francisco Newsome on 04-08-2023 MCH (RBC) [Entitic mass] 29.1 pg 27.0-32.0 [facility] MCHC (RBC) [Mass/Vol] 31.5 g/dL 32-36 [facility] Platelet mean volume (Bld) [Entitic vol] 10.5 fL 6.2-12.0 [facility] Platelets (Bld) [#/Vol] 206 10*3/uL 150-450 [facility] No Panel InformationOrdered By: Francisco Newsome on 04-08-2023 Estimated GFR (MDRD) Amer 148 mL/min >60 [facility] Comment on above: GFR Calc Estimated GFR (MDRD) Non-Af Amer 122 mL/min >60 [facility] Comment on above: Non- GFR Calc RBC Auto (Bld) [#/Vol]Ordere d By: Francisco Newsome on 04-08-2023 RBC (Bld) [#/Vol] 4.85 10*6/uL 4.6-6.2 [facility] Serum or plasma calcium jef urement (mass/volume)Ordered By: Francisco Newsome on 04-08-2023 Calcium [Mass/Vol] 9.4 mg/dL 8.5-10.1 [facility] Serum or plasma creatinine m easurement (mass/volume)Ordered By: Francisco Newsome on 04-08-2023 Creatinine [Mass/Vol] 0.70 mg/dL 0.70-1.30 [facility] Comment on above: The validity of the calculated GFR & GFRAA in patients over 70 years has not been determined. Clinical correlation is essential. Serum or plasma urea nitroge n measurement (mass/volume)Ordered By: Francisco Newsome on 04-08-2023 Urea nitrogen [Mass/Vol] 25 mg/dL 7-18 [facility] Thin prep Papanicolaou smear with manual screeningOrdered By: Francisco Newsome on 04-08-2023 Thin prep Papanicolaou smear with manual screening 6 5-15 [facility] Basophil percentageOrdered B y: Francisco Newsome on 03-10-2023 Ammonia (P) [Moles/Vol] 41.0 umol/L 11-32 [facility] Bilirubin [Mass/Vol] 0.40 mg/dL 0.20-1.00 [facility] [place] Comment on above: For patients on eltr ombopag therapy, use of Dimension [place] TBIL is not recommended. Chloride [Moles/Vol] 112 mmol/L 98-107 [facility] Glucose [Mass/Vol] 94 mg/dL 74-106 [facility] Hemoglobin (Bld) [Mass/Vol] 13.2 g/dL 13.0-16.5 [facility] Potassium [Moles/Vol] 3.9 mmol/L 3.5-5.1 [facility] Protein [Mass/Vol] 7.4 g/dL 6.4-8.2 [facility] Sodium [Moles/Vol] 141 mmol/L 136-145 [facility] WBC (Bld) [#/Vol] 8.1 10*3/uL 4.4-11.0 [facility] Determination of erythrocyte mean corpuscular volume (MCV)Ordered By: Francisco Newsome on 03-10-2023 MCV (RBC) [Entitic vol] 91.7 fL 80-94 [facility] Erythrocyte distribution wid th ratioOrdered By: Francisco Newsome on 03-10-2023 Erythrocyte distribution width (RBC) [Ratio] 13.2 % 11.6-14.6 [facility] Erythrocyte distribution wid th standard deviationOrdered By: Francisco Newsome on 03-10-2023 Erythrocyte distribution width (RBC) [Entitic vol] 44.5 fL 35.1-43.9 [facility] Hematocrit Auto (Bld) [Volum e fraction]Ordered By: Francisco Newsome on 03-10-2023 Hematocrit (Bld) [Volume fraction] 42.2 % 40-54 [facility] - Chemistry and C hemistry - challengeOrdered By: Francisco Newsome on 03-10-2023 Albumin/Globulin [Mass ratio] 0.7 {ratio} 0.9-2.4 [facility] ALP [Catalytic activity/Vol] 46 U/L 45-117 [facility] ALT [Catalytic activity/Vol] 19 U/L 16-61 [facility] CO2 [Moles/Vol] 25.0 mmol/L 21.0-32.0 [facility] Globulin (S) [Mass/Vol] 4.4 g/dL 2.2-4.2 [facility] Urea nitrogen/Creatinine [Mass ratio] 41.1 mg/mg 10-20 [facility] - Hematology and Cell countsOrdered By: Francisco Newsome on 03-10-2023 MCH (RBC) [Entitic mass] 28.7 pg 27.0-32.0 [facility] MCHC (RBC) [Mass/Vol] 31.3 g/dL 32-36 [facility] Platelets (Bld) [#/Vol] 211 10*3/uL 150-450 [facility] No Panel InformationOrdered By: Francisco Newsome on 03-10-2023 Estimated GFR (MDRD) Amer 130 mL/min >60 [facility] Comment on above: GFR Calc Estimated GFR (MDRD) Non-Af Amer 107 mL/min >60 [facility] Comment on above: Non- GFR Calc Levetiracetam (Keppra) Level 22.6 ug/mL 10.0-40.0 [facility] Comment on above: Performed at: - L [address] [id number] Director: Brendan Bhandari MD, Phone: [phone] Valproic Acid (Depakene) Level 85 ug/mL 50-100 [facility] Platelet mean volume Darrel-Ec ker (Bld) [Entitic vol]Ordered By: Francisco Newsome on 03-10-2023 Platelet mean volume (Bld) [Entitic vol] 11.1 fL 6.2-12.0 [facility] RBC Auto (Bld) [#/Vol]Ordere d By: Francisco Newsome on 03-10-2023 RBC (Bld) [#/Vol] 4.60 10*6/uL 4.6-6.2 [facility] Serum or plasma calcium jef urement (mass/volume)Ordered By: Francisco Newsome on 03-10-2023 Calcium [Mass/Vol] 9.3 mg/dL 8.5-10.1 [facility] Serum or plasma creatinine m easurement (mass/volume)Ordered By: Francisco Newsome on 03-10-2023 Creatinine [Mass/Vol] 0.78 mg/dL 0.70-1.30 [facility] Comment on above: The validity of the calculated GFR & GFRAA in patients over 70 years has not been determined. Clinical correlation is essential. Serum or plasma urea nitroge n measurement (mass/volume)Ordered By: Francisco Newsome on 03-10-2023 Urea nitrogen [Mass/Vol] 32 mg/dL 7-18 [facility] Thin prep Papanicolaou smear with manual screeningOrdered By: Francisco Newsome on 03-10-2023 Thin prep Papanicolaou smear with manual screening 3.0 g/dL 3.2-5.0 [facility] Thin prep Papanicolaou smear with manual screening 20 U/L 15-37 [facility] Thin prep Papanicolaou smear with manual screening 4 5-15 [facility] Basophil percentageOrdered B y: Francisco Newsome on 02-11-2023 Chloride [Moles/Vol] 108 mmol/L 98-107 [facility] [place] Glucose [Mass/Vol] 89 mg/dL 74-106 [facility] Potassium [Moles/Vol] 3.9 mmol/L 3.5-5.1 [facility] Sodium [Moles/Vol] 141 mmol/L 136-145 [facility] WBC (Bld) [#/Vol] 8.1 10*3/uL 4.4-11.0 [facility] Blood erythrocytes count (nu mber/volume)Ordered By: Francisco Newsome on 02-11-2023 RBC (Bld) [#/Vol] 4.44 10*6/uL 4.6-6.2 [facility] Blood hemoglobin measurement (mass/volume)Ordered By: Francisco Newsome on 02-11-2023 Hemoglobin (Bld) [Mass/Vol] 12.9 g/dL 13.0-16.5 [facility] Blood platelet mean volumeOr dered By: Francisco Newsome on 02-11-2023 Platelet mean volume (Bld) [Entitic vol] 10.2 fL 6.2-12.0 [facility] Determination of erythrocyte mean corpuscular volume (MCV)Ordered By: Francisco Newsome on 02-11-2023 MCV (RBC) [Entitic vol] 92.8 fL 80-94 [facility] Hematocrit Auto (Bld) [Volum e fraction]Ordered By: Francisco Newsome on 02-11-2023 Hematocrit (Bld) [Volume fraction] 41.2 % 40-54 [facility] - Chemistry and C hemistry - challengeOrdered By: Francisco Newsome on 02-11-2023 CO2 [Moles/Vol] 27.0 mmol/L 21.0-32.0 [facility] Urea nitrogen/Creatinine [Mass ratio] 38.0 mg/mg 10-20 [facility] - Hematology and Cell countsOrdered By: Francisco Newsome on 02-11-2023 Erythrocyte distribution width (RBC) [Entitic vol] 42.7 fL 35.1-43.9 [facility] Erythrocyte distribution width (RBC) [Ratio] 12.6 % 11.6-14.6 [facility] MCH (RBC) [Entitic mass] 29.1 pg 27.0-32.0 [facility] MCHC Auto (RBC) [Mass/Vol]Or dered By: Francisco Newsome on 02-11-2023 MCHC (RBC) [Mass/Vol] 31.3 g/dL 32-36 [facility] No Panel InformationOrdered By: Francisco Newsome on 02-11-2023 Estimated GFR (MDRD) Amer 158 mL/min >60 [facility] Comment on above: GFR Calc Estimated GFR (MDRD) Non-Af Amer 130 mL/min >60 [facility] Comment on above: Non- GFR Calc Platelets bldOrdered By: Susi Newsome on 02-11-2023 Platelets (Bld) [#/Vol] 208 10*3/uL 150-450 [facility] Serum or plasma calcium jef urement (mass/volume)Ordered By: Francisco Newsome on 02-11-2023 Calcium [Mass/Vol] 9.4 mg/dL 8.5-10.1 [facility] Serum or plasma creatinine m easurement (mass/volume)Ordered By: Francisco Newsome on 02-11-2023 Creatinine [Mass/Vol] 0.66 mg/dL 0.70-1.30 [facility] Comment on above: The validity of the calculated GFR & GFRAA in patients over 70 years has not been determined. Clinical correlation is essential. Serum or plasma urea nitroge n measurement (mass/volume)Ordered By: Francisco Newsome on 02-11-2023 Urea nitrogen [Mass/Vol] 25 mg/dL 7-18 [facility] Thin prep Papanicolaou smear with manual screeningOrdered By: Francisco Newsome on 02-11-2023 Thin prep Papanicolaou smear with manual screening 6 5-15 [facility] Basophil percentageOrdered B y: Francisco Newsome on 01-18-2023 Chloride [Moles/Vol] 115 mmol/L 98-107 [facility] [place] Glucose [Mass/Vol] 92 mg/dL 74-106 [facility] Potassium [Moles/Vol] 3.8 mmol/L 3.5-5.1 [facility] Sodium [Moles/Vol] 142 mmol/L 136-145 [facility] WBC (Bld) [#/Vol] 6.6 10*3/uL 4.4-11.0 [facility] Blood erythrocytes count (nu mber/volume)Ordered By: Francisco Newsome on 01-18-2023 RBC (Bld) [#/Vol] 4.02 10*6/uL 4.6-6.2 [facility] Blood hemoglobin measurement (mass/volume)Ordered By: Francisco Newsome on 01-18-2023 Hemoglobin (Bld) [Mass/Vol] 11.8 g/dL 13.0-16.5 [facility] Blood platelet mean volumeOr dered By: Francisco Newsome on 01-18-2023 Platelet mean volume (Bld) [Entitic vol] 10.6 fL 6.2-12.0 [facility] Determination of erythrocyte mean corpuscular volume (MCV)Ordered By: Francisco Newsome on 01-18-2023 MCV (RBC) [Entitic vol] 94.3 fL 80-94 [facility] Hematocrit Auto (Bld) [Volum e fraction]Ordered By: Francisco Newsome on 01-18-2023 Hematocrit (Bld) [Volume fraction] 37.9 % 40-54 [facility] - Chemistry and C hemistry - challengeOrdered By: Francisco Newsome on 01-18-2023 CO2 [Moles/Vol] 20.0 mmol/L 21.0-32.0 [facility] Urea nitrogen/Creatinine [Mass ratio] 42.0 mg/mg 10-20 [facility] - Hematology and Cell countsOrdered By: Francisco Newsome on 01-18-2023 Erythrocyte distribution width (RBC) [Entitic vol] 44.5 fL 35.1-43.9 [facility] Erythrocyte distribution width (RBC) [Ratio] 12.8 % 11.6-14.6 [facility] MCH (RBC) [Entitic mass] 29.4 pg 27.0-32.0 [facility] MCHC Auto (RBC) [Mass/Vol]Or dered By: Francisco Newsome on 01-18-2023 MCHC (RBC) [Mass/Vol] 31.1 g/dL 32-36 [facility] No Panel InformationOrdered By: Francisco Newsome on 01-18-2023 Estimated GFR (MDRD) Amer 116 mL/min >60 [facility] Comment on above: GFR Calc Estimated GFR (MDRD) Non-Af Amer 96 mL/min >60 [facility] Comment on above: Non- GFR Calc Platelets bldOrdered By: Susi Newsome on 01-18-2023 Platelets (Bld) [#/Vol] 184 10*3/uL 150-450 [facility] Serum or plasma calcium jef urement (mass/volume)Ordered By: Francisco Newsome on 01-18-2023 Calcium [Mass/Vol] 8.5 mg/dL 8.5-10.1 [facility] Serum or plasma creatinine m easurement (mass/volume)Ordered By: Francisco Newsome on 01-18-2023 Creatinine [Mass/Vol] 0.86 mg/dL 0.70-1.30 [facility] Comment on above: The validity of the calculated GFR & GFRAA in patients over 70 years has not been determined. Clinical correlation is essential. Serum or plasma urea nitroge n measurement (mass/volume)Ordered By: Francisco Newsome on 01-18-2023 Urea nitrogen [Mass/Vol] 36 mg/dL 7-18 [facility] Thin prep Papanicolaou smear with manual screeningOrdered By: Francisco Newsome on 01-18-2023 Thin prep Papanicolaou smear with manual screening 7 5-15 [facility] No Panel InformationOrdered By: Francisco Newsome on 01-05-2023 Thyroid Stimulating Hormone (TSH) 2.89 uIU/mL 0.358-3.74 [facility] Basophil percentageOrdered B y: Francisco Newsome on 12-17-2022 Chloride [Moles/Vol] 113 mmol/L 98-107 [facility] Glucose [Mass/Vol] 87 mg/dL 74-106 [facility] Potassium [Moles/Vol] 3.9 mmol/L 3.5-5.1 [facility] Sodium [Moles/Vol] 143 mmol/L 136-145 [facility] WBC (Bld) [#/Vol] 7.2 10*3/uL 4.4-11.0 [facility] Blood erythrocytes count (nu mber/volume)Ordered By: Francisco Newsome on 12-17-2022 RBC (Bld) [#/Vol] 3.83 10*6/uL 4.6-6.2 [facility] Blood hemoglobin measurement (mass/volume)Ordered By: Francisco Newsome on 12-17-2022 Hemoglobin (Bld) [Mass/Vol] 11.4 g/dL 13.0-16.5 [facility] Blood platelet mean volumeOr dered By: Francisco Newsome on 12-17-2022 Platelet mean volume (Bld) [Entitic vol] 10.7 fL 6.2-12.0 [facility] Determination of erythrocyte mean corpuscular volume (MCV)Ordered By: Francisco Newsome on 12-17-2022 MCV (RBC) [Entitic vol] 96.1 fL 80-94 [facility] Hematocrit Auto (Bld) [Volum e fraction]Ordered By: Francisco Newsome on 12-17-2022 Hematocrit (Bld) [Volume fraction] 36.8 % 40-54 [facility] - Chemistry and C hemistry - challengeOrdered By: Francisco Newsome on 12-17-2022 CO2 [Moles/Vol] 25.0 mmol/L 21.0-32.0 [facility] Urea nitrogen/Creatinine [Mass ratio] 30.9 mg/mg 10-20 [facility] - Hematology and Cell countsOrdered By: Francisco Newsome on 12-17-2022 Erythrocyte distribution width (RBC) [Entitic vol] 46.2 fL 35.1-43.9 [facility] Erythrocyte distribution width (RBC) [Ratio] 13.2 % 11.6-14.6 [facility] MCH (RBC) [Entitic mass] 29.8 pg 27.0-32.0 [facility] MCHC Auto (RBC) [Mass/Vol]Or dered By: Francisco Newsome on 12-17-2022 MCHC (RBC) [Mass/Vol] 31.0 g/dL 32-36 [facility] No Panel InformationOrdered By: Francisco Newsome on 12-17-2022 Estimated GFR (MDRD) Amer 144 mL/min >60 [facility] Comment on above: GFR Calc Estimated GFR (MDRD) Non-Af Amer 119 mL/min >60 [facility] Comment on above: Non- GFR Calc Platelets bldOrdered By: Susi Newsome on 12-17-2022 Platelets (Bld) [#/Vol] 180 10*3/uL 150-450 [facility] Serum or plasma calcium jef urement (mass/volume)Ordered By: Francisco Newsome on 12-17-2022 Calcium [Mass/Vol] 8.8 mg/dL 8.5-10.1 [facility] Serum or plasma creatinine m easurement (mass/volume)Ordered By: Francisco Newsome on 12-17-2022 Creatinine [Mass/Vol] 0.71 mg/dL 0.70-1.30 [facility] Comment on above: The validity of the calculated GFR & GFRAA in patients over 70 years has not been determined. Clinical correlation is essential. Serum or plasma urea nitroge n measurement (mass/volume)Ordered By: Francisco Newsome on 12-17-2022 Urea nitrogen [Mass/Vol] 22 mg/dL 7-18 [facility] Thin prep Papanicolaou smear with manual screeningOrdered By: Francisco Newsome on 12-17-2022 Thin prep Papanicolaou smear with manual screening 5 5-15 [facility] Basophil percentageOrdered B y: Francisco Newsome on 11-19-2022 Chloride [Moles/Vol] 113 mmol/L 98-107 [facility] [place] Glucose [Mass/Vol] 85 mg/dL 74-106 [facility] Potassium [Moles/Vol] 4.3 mmol/L 3.5-5.1 [facility] Sodium [Moles/Vol] 142 mmol/L 136-145 [facility] WBC (Bld) [#/Vol] 6.7 10*3/uL 4.4-11.0 [facility] Blood erythrocytes count (nu mber/volume)Ordered By: Francisco Newsome on 11-19-2022 RBC (Bld) [#/Vol] 4.17 10*6/uL 4.6-6.2 [facility] Blood hemoglobin measurement (mass/volume)Ordered By: Francisco Newsome on 11-19-2022 Hemoglobin (Bld) [Mass/Vol] 12.9 g/dL 13.0-16.5 [facility] Blood platelet mean volumeOr dered By: Francisco Newsome on 11-19-2022 Platelet mean volume (Bld) [Entitic vol] 9.8 fL 6.2-12.0 [facility] Determination of erythrocyte mean corpuscular volume (MCV)Ordered By: Francisco Newsome on 11-19-2022 MCV (RBC) [Entitic vol] 96.2 fL 80-94 [facility] Hematocrit Auto (Bld) [Volum e fraction]Ordered By: Francisco Newsome on 11-19-2022 Hematocrit (Bld) [Volume fraction] 40.1 % 40-54 [facility] - Chemistry and C hemistry - challengeOrdered By: Francisco Newsome on 11-19-2022 CO2 [Moles/Vol] 25.0 mmol/L 21.0-32.0 [facility] Free T4 [Mass/Vol] 1.33 ng/dL 0.76-1.46 [facility] Urea nitrogen/Creatinine [Mass ratio] 49.1 mg/mg 10-20 [facility] - Hematology and Cell countsOrdered By: Francisco Newsome on 11-19-2022 Erythrocyte distribution width (RBC) [Entitic vol] 48.8 fL 35.1-43.9 [facility] Erythrocyte distribution width (RBC) [Ratio] 13.7 % 11.6-14.6 [facility] MCH (RBC) [Entitic mass] 30.9 pg 27.0-32.0 [facility] MCHC Auto (RBC) [Mass/Vol]Or dered By: Francisco Newsome on 11-19-2022 MCHC (RBC) [Mass/Vol] 32.2 g/dL 32-36 [facility] No Panel InformationOrdered By: Francisco Newsome on 11-19-2022 Estimated GFR (MDRD) Amer 135 mL/min >60 [facility] Comment on above: GFR Calc Estimated GFR (MDRD) Non-Af Amer 111 mL/min >60 [facility] Comment on above: Non- GFR Calc Thyroid Stimulating Hormone (TSH) 0.99 uIU/mL 0.358-3.74 [facility] Platelets bldOrdered By: Susi Newsome on 11-19-2022 Platelets (Bld) [#/Vol] 189 10*3/uL 150-450 [facility] Serum or plasma calcium jef urement (mass/volume)Ordered By: Francisco Newsome on 11-19-2022 Calcium [Mass/Vol] 9.1 mg/dL 8.5-10.1 [facility] Serum or plasma creatinine m easurement (mass/volume)Ordered By: Francisco Newsome on 11-19-2022 Creatinine [Mass/Vol] 0.75 mg/dL 0.70-1.30 [facility] Comment on above: The validity of the calculated GFR & GFRAA in patients over 70 years has not been determined. Clinical correlation is essential. Serum or plasma urea nitroge n measurement (mass/volume)Ordered By: Francisco Newsome on 11-19-2022 Urea nitrogen [Mass/Vol] 37 mg/dL 7-18 [facility] Thin prep Papanicolaou smear with manual screeningOrdered By: Francisco Newsome on 11-19-2022 Thin prep Papanicolaou smear with manual screening 4 5-15 [facility] No Panel InformationOrdered By: Francisco Newsome on 11-04-2022 Levetiracetam (Keppra) Level 23.0 ug/mL 10.0-40.0 [facility] Comment on above: Performed at: - [address] [id number] Director: Brendan Bhandair MD, Phone: [phone] Basophil percentageOrdered B y: Francisco Newsome on 10-22-2022 Chloride [Moles/Vol] 114 mmol/L 98-107 [facility] [place] Cholesterol [Mass/Vol] 119 mg/dL <200 [facility] Comment on above: <200 mg/dL Desirable 200-240 mg/dL Borderline >240 mg/dL High Risk Glucose [Mass/Vol] 86 mg/dL 74-106 [facility] Potassium [Moles/Vol] 3.6 mmol/L 3.5-5.1 [facility] Sodium [Moles/Vol] 142 mmol/L 136-145 [facility] Triglyceride [Mass/Vol] 81 mg/dL <199 [facility] Comment on above: The drugs N-Acetylcy steine and Metamizole may falsely depress this assay.Serum Triglycerides Reference Interval Normal <150 mg/dL Borderline high 150 - 199 mg/dL High 200 - 499 mg/dL Very High > or = 500 mg/dL WBC (Bld) [#/Vol] 7.4 10*3/uL 4.4-11.0 [facility] Blood erythrocytes count (nu mber/volume)Ordered By: Francisco Newsome on 10-22-2022 RBC (Bld) [#/Vol] 3.76 10*6/uL 4.6-6.2 [facility] Blood hemoglobin measurement (mass/volume)Ordered By: Francisco Newsome on 10-22-2022 Hemoglobin (Bld) [Mass/Vol] 11.2 g/dL 13.0-16.5 [facility] Blood platelet mean volumeOr dered By: Francisco Newsome on 10-22-2022 Platelet mean volume (Bld) [Entitic vol] 9.3 fL 6.2-12.0 [facility] Determination of erythrocyte mean corpuscular volume (MCV)Ordered By: Francisco Newsome on 10-22-2022 MCV (RBC) [Entitic vol] 94.9 fL 80-94 [facility] Hematocrit Auto (Bld) [Volum e fraction]Ordered By: Francisco Newsome on 10-22-2022 Hematocrit (Bld) [Volume fraction] 35.7 % 40-54 [facility] - Chemistry and C hemistry - challengeOrdered By: Francisco Newsome on 10-22-2022 CO2 [Moles/Vol] 23.0 mmol/L 21.0-32.0 [facility] Urea nitrogen/Creatinine [Mass ratio] 12.7 mg/mg 10-20 [facility] - Hematology and Cell countsOrdered By: Francisco Newsome on 10-22-2022 Erythrocyte distribution width (RBC) [Entitic vol] 49.7 fL 35.1-43.9 [facility] Erythrocyte distribution width (RBC) [Ratio] 14.2 % 11.6-14.6 [facility] MCH (RBC) [Entitic mass] 29.8 pg 27.0-32.0 [facility] MCHC Auto (RBC) [Mass/Vol]Or dered By: Francisco Newsome on 10-22-2022 MCHC (RBC) [Mass/Vol] 31.4 g/dL 32-36 [facility] No Panel InformationOrdered By: Francisco Newsome on 10-22-2022 Estimated GFR (MDRD) Amer 144 mL/min >60 [facility] Comment on above: GFR Calc Estimated GFR (MDRD) Non-Af Amer 119 mL/min >60 [facility] Comment on above: Non- GFR Calc Levetiracetam (Keppra) Level 46.1 ug/mL 10.0-40.0 [facility] Comment on above: Performed at: [facility] [address] [id number] Director: Brendan Bhandari MD, Phone: [phone] Thyroid Stimulating Hormone (TSH) 14.90 uIU/mL 0.358-3.74 [facility] Platelets bldOrdered By: Susi Newsome on 10-22-2022 Platelets (Bld) [#/Vol] 133 10*3/uL 150-450 [facility] Serum or plasma calcium jef urement (mass/volume)Ordered By: Francisco Newsome on 10-22-2022 Calcium [Mass/Vol] 8.8 mg/dL 8.5-10.1 [facility] Serum or plasma cholesterol in HDL measurement (mass/volume)Ordered By: Francisco Newsome on 10-22-2022 Cholesterol in HDL [Mass/Vol] 36 mg/dL >40 [facility] Comment on above: The drugs N-Acetylcy steine and Metamizole may falsely depress this assay. Reference Range HDL <40 mg/dL Low HDL Cholesterol HDL >or= 60 mg/dL High HDL Cholesterol Serum or plasma cholesterol in VLDL measurement (mass/volume)Ordered By: Francisco Newsome on 10-22-2022 Cholesterol in VLDL [Mass/Vol] 16 mg/dL 5-40 [facility] Serum or plasma creatinine m easurement (mass/volume)Ordered By: Francisco Newsome on 10-22-2022 Creatinine [Mass/Vol] 0.71 mg/dL 0.70-1.30 [facility] Comment on above: The validity of the calculated GFR & GFRAA in patients over 70 years has not been determined. Clinical correlation is essential. Serum or plasma low density lipoprotein (LDL) cholesterol measurement (mass/volume)Ordered By: Francisco Newsome on 10-22-2022 Cholesterol in LDL [Mass/Vol] 67 mg/dL 0-130 [facility] Serum or plasma urea nitroge n measurement (mass/volume)Ordered By: Francisco Newsome on 10-22-2022 Urea nitrogen [Mass/Vol] 9 mg/dL 7-18 [facility] Thin prep Papanicolaou smear with manual screeningOrdered By: Francisco Newsome on 10-22-2022 Thin prep Papanicolaou smear with manual screening 5 5-15 [facility] Absolute lymphocyte countOrd ered By: Liv Tobar on 10-20-2022 Lymphocytes Auto (Unsp spec) [#/Vol] 1.98 10*3/uL 0.83-4.51 [facility] Basophil percentageOrdered B y: Liv Tobar on 10-20-2022 Basophils/100 WBC (Bld) 0.7 % 0-1 [facility] Chloride [Moles/Vol] 117 mmol/L 98-107 [facility] Eosinophils/100 WBC (Bld) 2.3 % 0-5 [facility] Glucose [Mass/Vol] 94 mg/dL 74-106 [facility] Neutrophils (Bld) [#/Vol] 3.7 10*3/uL 2.0-7.7 [facility] Neutrophils/100 WBC (Bld) 53.0 % 47-70 [facility] Potassium [Moles/Vol] 3.4 mmol/L 3.5-5.1 [facility] Sodium [Moles/Vol] 145 mmol/L 136-145 [facility] WBC (Bld) [#/Vol] 7.0 10*3/uL 4.4-11.0 [facility] Blood erythrocytes count (nu mber/volume)Ordered By: Liv Tobar on 10-20-2022 RBC (Bld) [#/Vol] 3.77 10*6/uL 4.6-6.2 [facility] Blood hemoglobin measurement (mass/volume)Ordered By: Liv Tobar on 10-20-2022 Hemoglobin (Bld) [Mass/Vol] 11.2 g/dL 13.0-16.5 [facility] Blood lymphocytes/100 leukoc ytesOrdered By: Liv Tobar on 10-20-2022 Lymphocytes/100 WBC (Bld) 28.1 % 19-41 [facility] Blood monocytes/100 leukocyt esOrdered By: Liv Tobar on 10-20-2022 Monocytes/100 WBC (Bld) 15.3 % 0-10 [facility] Blood platelet mean volumeOr dered By: Liv Tobar on 10-20-2022 Platelet mean volume (Bld) [Entitic vol] 9.4 fL 6.2-12.0 [facility] Determination of erythrocyte mean corpuscular volume (MCV)Ordered By: Liv Tobar on 10-20-2022 MCV (RBC) [Entitic vol] 96.3 fL 80-94 [facility] Hematocrit Auto (Bld) [Volum e fraction]Ordered By: Liv Tobar on 10-20-2022 Hematocrit (Bld) [Volume fraction] 36.3 % 40-54 [facility] Iron measurement (mass/mass) Ordered By: Liv Tobar on 10-20-2022 Iron (Unsp spec) [Mass/Mass] 60 ug/dL 65-175 [facility] - Chemistry and C hemistry - challengeOrdered By: Liv oTbar on 10-20-2022 CO2 [Moles/Vol] 25.0 mmol/L 21.0-32.0 [facility] Cobalamin (Vitamin B12) [Mass/Vol] 510 pg/mL 211-911 [facility] Urea nitrogen/Creatinine [Mass ratio] 19.0 mg/mg 10-20 [facility] - Hematology and Cell countsOrdered By: Liv Tobar on 10-20-2022 Erythrocyte distribution width (RBC) [Entitic vol] 50.4 fL 35.1-43.9 [facility] Erythrocyte distribution width (RBC) [Ratio] 14.3 % 11.6-14.6 [facility] Immature granulocytes/100 WBC (Bld) 0.600 % 0.0-0.9 [facility] Comment on above: IG% - Immature Granu locytes (promyelocytes, myelocytes and metamyelocytes) > 1% indicates that a LEFT SHIFT is Present. MCH (RBC) [Entitic mass] 29.7 pg 27.0-32.0 [facility] Nucleated RBC/100 WBC (Bld) [Ratio] 0 % 0-5 [facility] MCHC Auto (RBC) [Mass/Vol]Or dered By: Liv Tobar on 10-20-2022 MCHC (RBC) [Mass/Vol] 30.9 g/dL 32-36 [facility] No Panel InformationOrdered By: Liv Tobar on 10-20-2022 Estimated Creatinine Clearance Calc 78.03 ml/min [facility] Estimated GFR (MDRD) Amer 128 mL/min >60 [facility] Comment on above: GFR Calc Estimated GFR (MDRD) Non-Af Amer 106 mL/min >60 [facility] Comment on above: Non- GFR Calc Total Iron Binding Capacity 196 ug/dL 250-450 [facility] Platelets bldOrdered By: Thelma Tobar on 10-20-2022 Platelets (Bld) [#/Vol] 124 10*3/uL 150-450 [facility] Serum or plasma calcium jef urement (mass/volume)Ordered By: Liv Tobar on 10-20-2022 Calcium [Mass/Vol] 8.3 mg/dL 8.5-10.1 [facility] Serum or plasma creatinine m easurement (mass/volume)Ordered By: Liv Tobar on 10-20-2022 Creatinine [Mass/Vol] 0.79 mg/dL 0.70-1.30 [facility] Comment on above: The validity of the calculated GFR & GFRAA in patients over 70 years has not been determined. Clinical correlation is essential. Serum or plasma ferritin drew surement (mass/volume)Ordered By: Liv Tobar on 10-20-2022 Ferritin [Mass/Vol] 221 ng/mL 26-388 [facility] Serum or plasma folate measu rement (mass/volume)Ordered By: Liv Tobar on 10-20-2022 Folate [Mass/Vol] 4.40 ng/mL 3.1-55.4 [facility] Serum or plasma iron saturat ion measurement (mass fraction)Ordered By: Liv Tobar on 10-20-2022 Iron saturation [Mass fraction] 30.6 % 15.0-55.0 [facility] Serum or plasma urea nitroge n measurement (mass/volume)Ordered By: Liv Tobar on 10-20-2022 Urea nitrogen [Mass/Vol] 15 mg/dL 7-18 [facility] Thin prep Papanicolaou smear with manual screeningOrdered By: Liv Tobar on 10-20-2022 Thin prep Papanicolaou smear with manual screening 3 5-15 [facility] Vancomycin troughOrdered By: Liv Tobar on 10-20-2022 Vancomycin trough [Mass/Vol] 22.4 ug/mL 5.0-15.0 [facility] Comment on above: VANCOMYCIN STANDARED DRUG THERAPY TROUGH LEVEL: 5.0 - 15.0 mg/L VANCOMYCIN HIGH INTENSITY THERAPY TROUGH LEVEL: 15.0 - 20.0 mg/L High Intensity therapy recommended for serious lifethreatening infections include:- Yedhbtizgw-Mcwfxdhlspcq-Harnahtse (Ventilator/Healtcare Associated)-Sepsis PLEASE CONTACT PHARMACY SERVICES (#[id number]) FOR INTERPRETATIONOF RESULTS. Basophil percentageOrdered B y: Liv Tobar on 10-18-2022 Lactate [Moles/Vol] 1.5 mmol/L 0.4-2.0 [facility] Ammonia (P) [Moles/Vol] 46.0 umol/L 11-32 [facility] Bilirubin [Mass/Vol] 0.40 mg/dL 0.20-1.00 [facility] [place] Comment on above: For patients on eltr ombopag therapy, use of Dimension [place] TBIL is not recommended. Protein [Mass/Vol] 6.2 g/dL 6.4-8.2 [facility] Direct bilirubinOrdered By: Liv Tobar on 10-18-2022 Bilirubin.direct [Mass/Vol] 0.14 mg/dL 0.00-0.30 [facility] - Chemistry and C hemistry - challengeOrdered By: Liv Tobar on 10-18-2022 ALP [Catalytic activity/Vol] 29 U/L 45-117 [facility] ALT [Catalytic activity/Vol] 7 U/L 16-61 [facility] Globulin (S) [Mass/Vol] 3.8 g/dL 2.2-4.2 [facility] - Microbiology an d Antimicrobial susceptibilityOrdered By: Liv Tobar on 10-18-2022 Bacteria identified Cx Nom (Bld) No growth in 5 days. [facility] No Panel InformationOrdered By: Liv Tobar on 10-18-2022 Methicillin-Resist S.aureus DNA PCR Negative Negative [facility] Valproic Acid (Depakene) Level 106 ug/mL 50-100 [facility] Serum or plasma albumin jfe urement (mass/volume)Ordered By: Liv Tobar on 10-18-2022 Albumin [Mass/Vol] 2.4 g/dL 3.2-5.0 [facility] Thin prep Papanicolaou smear with manual screeningOrdered By: Liv Tobar on 10-18-2022 Thin prep Papanicolaou smear with manual screening 11 U/L 15-37 [facility] Absolute lymphocyte countOrd ered By: Joselo Soto on 10-08-2022 Lymphocytes Auto (Unsp spec) [#/Vol] 3.15 10*3/uL 0.83-4.51 [facility] Basophil percentageOrdered B y: Joselo Soto on 10-08-2022 Basophil percentage 0 SEEN /hpf 0-5 [facility] Basophils/100 WBC (Bld) 0.8 % 0-1 [facility] Bilirubin [Mass/Vol] 0.50 mg/dL 0.20-1.00 [facility] [place] Comment on above: For patients on eltr ombopag therapy, use of Dimension [place] TBIL is not recommended. Chloride [Moles/Vol] 108 mmol/L 98-107 [facility] Eosinophils/100 WBC (Bld) 2.1 % 0-5 [facility] Glucose [Mass/Vol] 118 mg/dL 74-106 [facility] Comment on above: Fasting Glucose resu lt from 100 to 125 mg/dL suggests IMPAIRED HOMEOSTASIS per A.D.A. criteria. Neutrophils (Bld) [#/Vol] 6.0 10*3/uL 2.0-7.7 [facility] Neutrophils/100 WBC (Bld) 50.7 % 47-70 [facility] Potassium [Moles/Vol] 3.9 mmol/L 3.5-5.1 [facility] Protein [Mass/Vol] 8.2 g/dL 6.4-8.2 [facility] Sodium [Moles/Vol] 141 mmol/L 136-145 [facility] WBC (Bld) [#/Vol] 11.8 10*3/uL 4.4-11.0 [facility] Bilirubin Test strip Ql (U)O rdered By: Joselo Soto on 10-08-2022 Bilirubin Ql (U) Negative Negative [facility] Blood erythrocytes count (nu mber/volume)Ordered By: Joselo Soto on 10-08-2022 RBC (Bld) [#/Vol] 4.53 10*6/uL 4.6-6.2 [facility] Blood hemoglobin measurement (mass/volume)Ordered By: Joselo Soto on 10-08-2022 Hemoglobin (Bld) [Mass/Vol] 13.6 g/dL 13.0-16.5 [facility] Blood lymphocytes/100 leukoc ytesOrdered By: Joselo Soto on 10-08-2022 Lymphocytes/100 WBC (Bld) 26.7 % 19-41 [facility] Blood manual differential co mment interpretation (narrative result)Ordered By: Joselo Soto on 10-08-2022 Manual differential comment Olayinka (Bld) [Interp] SCANNED [facility] Comment on above: MONOCYTOSIS NOTED Blood monocytes/100 leukocyt esOrdered By: Joselo Soto on 10-08-2022 Monocytes/100 WBC (Bld) 19.3 % 0-10 [facility] Blood platelet mean volumeOr dered By: Joselo Soto on 10-08-2022 Platelet mean volume (Bld) [Entitic vol] 9.6 fL 6.2-12.0 [facility] Determination of erythrocyte mean corpuscular volume (MCV)Ordered By: Joselo Soto on 10-08-2022 MCV (RBC) [Entitic vol] 94.5 fL 80-94 [facility] Hematocrit Auto (Bld) [Volum e fraction]Ordered By: Joselo Soto on 10-08-2022 Hematocrit (Bld) [Volume fraction] 42.8 % 40-54 [facility] Ketones Test strip Ql (U)Ord ered By: Joselo Soto on 10-08-2022 Ketones Ql (U) 15 mg/dl Negative [facility] - Chemistry and C hemistry - challengeOrdered By: Joselo Soto on 10-08-2022 ALP [Catalytic activity/Vol] 48 U/L 45-117 [facility] ALT [Catalytic activity/Vol] 10 U/L 16-61 [facility] CO2 [Moles/Vol] 22.0 mmol/L 21.0-32.0 [facility] Globulin (S) [Mass/Vol] 4.8 g/dL 2.2-4.2 [facility] Urea nitrogen/Creatinine [Mass ratio] 21.4 mg/mg 10-20 [facility] - Hematology and Cell countsOrdered By: Joselo Soto on 10-08-2022 Erythrocyte distribution width (RBC) [Entitic vol] 47.3 fL 35.1-43.9 [facility] Erythrocyte distribution width (RBC) [Ratio] 13.6 % 11.6-14.6 [facility] Immature granulocytes/100 WBC (Bld) 0.400 % 0.0-0.9 [facility] Comment on above: IG% - Immature Granu locytes (promyelocytes, myelocytes and metamyelocytes) > 1% indicates that a LEFT SHIFT is Present. MCH (RBC) [Entitic mass] 30.0 pg 27.0-32.0 [facility] Nucleated RBC/100 WBC (Bld) [Ratio] 0 % 0-5 [facility] MCHC Auto (RBC) [Mass/Vol]Or dered By: Joselo Soto on 10-08-2022 MCHC (RBC) [Mass/Vol] 31.8 g/dL 32-36 [facility] Mucus LM Ql (Urine sed)Order ed By: Joselo Soto on 10-08-2022 Mucus Ql (Urine sed) 0 SEEN /hpf [facility] Nitrite Test strip Ql (U)Ord ered By: Joselo Soto on 10-08-2022 Nitrite Ql (U) Negative Negative [facility] No Panel InformationOrdered By: Joselo Soto on 10-08-2022 Estimated Creatinine Clearance Calc 64.68 ml/min [facility] Estimated GFR (MDRD) Amer 94 mL/min >60 [facility] Comment on above: GFR Calc Estimated GFR (MDRD) Non-Af Amer 78 mL/min >60 [facility] Comment on above: Non- GFR Calc Troponin I High Sensitivity 4 pg/mL 3.0-78.0 [facility] Comment on above: Please Note: New Susie t Units and Gender Specific Reference Ranges. For more information see Policy Stat Procedure [place] High Sensitivity Troponin (TNIH) and attachments. Valproic Acid (Depakene) Level 91 ug/mL 50-100 [facility] Platelets bldOrdered By: Abigail Soto on 10-08-2022 Platelets (Bld) [#/Vol] 200 10*3/uL 150-450 [facility] Protein Test strip Ql (U)Ord ered By: Joselo Soto on 10-08-2022 Protein Ql (U) Negative Negative [facility] Review by pathologistOrdered By: Joselo Soto on 10-08-2022 Pathologist review Olayinka (Unsp spec) [Interp] June verónica [facility] Pathologist review Olayinka (Unsp spec) [Interp] Reviewed [facility] Comment on above: Previous reported re sult: June verónica Edited by: RGOOD on 10/08/22:1438Mild mature monocytosis.Clinical correlation suggested.Pb Salas D.O. 10/08/22 AMENDED REPORT 10/08/22 1438 PATH REV previously reported as: May foll Serum or plasma albumin jef urement (mass/volume)Ordered By: Joselo Soto on 10-08-2022 Albumin [Mass/Vol] 3.4 g/dL 3.2-5.0 [facility] Serum or plasma albumin/glob ulin mass ratioOrdered By: Rem Ungliz on 10-08-2022 Albumin/Globulin [Mass ratio] 0.7 {ratio} 0.9-2.4 [facility] Serum or plasma calcium jef urement (mass/volume)Ordered By: Remus Soto on 10-08-2022 Calcium [Mass/Vol] 9.5 mg/dL 8.5-10.1 [facility] Serum or plasma creatinine m easurement (mass/volume)Ordered By: Remus Soto on 10-08-2022 Creatinine [Mass/Vol] 1.03 mg/dL 0.70-1.30 [facility] Comment on above: The validity of the calculated GFR & GFRAA in patients over 70 years has not been determined. Clinical correlation is essential. Serum or plasma urea nitroge n measurement (mass/volume)Ordered By: Joselo Soto on 10-08-2022 Urea nitrogen [Mass/Vol] 22 mg/dL 7-18 [facility] Squamous epithelial cells de tection in urine sediment by light microscopyOrdered By: Joselo Soto on 10-08-2022 Epithelial cells.squamous LM Ql (Urine sed) 0 SEEN /hpf 0-5 [facility] Thin prep Papanicolaou smear with manual screeningOrdered By: Joselo Soto on 10-08-2022 Thin prep Papanicolaou smear with manual screening 10 U/L 15-37 [facility] Thin prep Papanicolaou smear with manual screening 11 5-15 [facility] Urine blood detectionOrdered By: Joselo Soto on 10-08-2022 RBC Ql (U) Negative Negative [facility] RBC Ql (U) 0 SEEN /hpf 0-5 [facility] Urine clarityOrdered By: Abigail Soto on 10-08-2022 Clarity (U) Clear Clear [facility] Urine color determinationOrd ered By: Joselo Soto on 10-08-2022 Color (U) Yellow Yellow [facility] Urine glucose detectionOrder ed By: Joselo Soto on 10-08-2022 Glucose Ql (U) Normal mg/dl Normal [facility] Urine leukocyte esterase det ection by dipstickOrdered By: Joselo Soto on 10-08-2022 Leukocyte esterase Test strip Ql (U) Negative Negative [facility] Urine pHOrdered By: Joselo Jacobson gur on 10-08-2022 pH (U) 6.5 [pH] 5.0 - 8.0 [facility] Urine sediment bacteria coun t by microscopy (number/high power field)Ordered By: Joselo Soto on 10-08-2022 Bacteria LM.HPF (Urine sed) [#/Area] RARE /hpf None Seen [facility] Urine specific gravity measu rementOrdered By: Joselo Soto on 10-08-2022 Specific gravity (U) [Rel density] 1.015 1.002-1.030 [facility] Urobilinogen Auto test strip Ql (U)Ordered By: Joselo Soto on 10-08-2022 Urobilinogen Ql (U) 4 mg/dl Normal [facility] Absolute lymphocyte countOrd ered By: Harmony William on 09-23-2022 Lymphocytes Auto (Unsp spec) [#/Vol] 2.05 10*3/uL 0.83-4.51 [facility] Basophil percentageOrdered B y: Harmony William on 09-23-2022 Basophils/100 WBC (Bld) 0.6 % 0-1 [facility] Bilirubin [Mass/Vol] 0.60 mg/dL 0.20-1.00 [facility] [place] Comment on above: For patients on eltr ombopag therapy, use of Dimension [place] TBIL is not recommended. Chloride [Moles/Vol] 115 mmol/L 98-107 [facility] Cholesterol [Mass/Vol] 139 mg/dL <200 [facility] Comment on above: <200 mg/dL Desirable 200-240 mg/dL Borderline >240 mg/dL High Risk Eosinophils/100 WBC (Bld) 0.6 % 0-5 [facility] Glucose [Mass/Vol] 121 mg/dL 74-106 [facility] Comment on above: Fasting Glucose resu lt from 100 to 125 mg/dL suggests IMPAIRED HOMEOSTASIS per A.D.A. criteria. Neutrophils (Bld) [#/Vol] 5.3 10*3/uL 2.0-7.7 [facility] Neutrophils/100 WBC (Bld) 62.3 % 47-70 [facility] Potassium [Moles/Vol] 3.1 mmol/L 3.5-5.1 [facility] Protein [Mass/Vol] 7.7 g/dL 6.4-8.2 [facility] Sodium [Moles/Vol] 145 mmol/L 136-145 [facility] [facility] Triglyceride [Mass/Vol] 111 mg/dL <199 [facility] Comment on above: The drugs N-Acetylcy steine and Metamizole may falsely depress this assay.Serum Triglycerides Reference Interval Normal <150 mg/dL Borderline high 150 - 199 mg/dL High 200 - 499 mg/dL Very High > or = 500 mg/dL WBC (Bld) [#/Vol] 8.5 10*3/uL 4.4-11.0 [facility] Blood erythrocytes count (nu mber/volume)Ordered By: Harmony William on 09-23-2022 RBC (Bld) [#/Vol] 4.65 10*6/uL 4.6-6.2 [facility] Blood hemoglobin measurement (mass/volume)Ordered By: Harmony William on 09-23-2022 Hemoglobin (Bld) [Mass/Vol] 13.6 g/dL 13.0-16.5 [facility] Blood lymphocytes/100 leukoc ytesOrdered By: Harmony William on 09-23-2022 Lymphocytes/100 WBC (Bld) 24.1 % 19-41 [facility] Blood monocytes/100 leukocyt esOrdered By: Harmony William on 09-23-2022 Monocytes/100 WBC (Bld) 11.9 % 0-10 [facility] Blood platelet mean volumeOr dered By: Harmony William on 09-23-2022 Platelet mean volume (Bld) [Entitic vol] 9.9 fL 6.2-12.0 [facility] Determination of erythrocyte mean corpuscular volume (MCV)Ordered By: Harmony William on 09-23-2022 MCV (RBC) [Entitic vol] 94.6 fL 80-94 [facility] Hematocrit Auto (Bld) [Volum e fraction]Ordered By: marshalgaithersburgzulay William on 09-23-2022 Hematocrit (Bld) [Volume fraction] 44.0 % 40-54 [facility] Laboratory - Chemistry and C hemistry - challengeOrdered By: marshalgaithersburgzulay William on 09-23-2022 ALP [Catalytic activity/Vol] 48 U/L 45-117 [facility] ALT [Catalytic activity/Vol] 11 U/L 16-61 [facility] CO2 [Moles/Vol] 22.0 mmol/L 21.0-32.0 [facility] Globulin (S) [Mass/Vol] 4.4 g/dL 2.2-4.2 [facility] Urea nitrogen/Creatinine [Mass ratio] 15.9 mg/mg 10-20 [facility] Laboratory - Hematology and Cell countsOrdered By: [facility] Berrienzulay Rodriguezcyndee on 09-23-2022 Erythrocyte distribution width (RBC) [Entitic vol] 45.9 fL 35.1-43.9 [facility] Erythrocyte distribution width (RBC) [Ratio] 13.2 % 11.6-14.6 [facility] Immature granulocytes/100 WBC (Bld) 0.500 % 0.0-0.9 [facility] Comment on above: IG% - Immature Granu locytes (promyelocytes, myelocytes and metamyelocytes) > 1% indicates that a LEFT SHIFT is Present. MCH (RBC) [Entitic mass] 29.2 pg 27.0-32.0 [facility] Nucleated RBC/100 WBC (Bld) [Ratio] 0 % 0-5 [facility] MCHC Auto (RBC) [Mass/Vol]Or dered By: Harmony William on 09-23-2022 MCHC (RBC) [Mass/Vol] 30.9 g/dL 32-36 [facility] No Panel InformationOrdered By: nena William on 09-23-2022 Valproic Acid (Depakene) Level 128 ug/mL 50-100 [facility] Estimated GFR (MDRD) Amer 90 mL/min >60 [facility] Comment on above: GFR Calc Estimated GFR (MDRD) Non-Af Amer 74 mL/min >60 [facility] Comment on above: Non- GFR Calc Prostate Specific Antigen Screen 1.29 ng/mL 0.00-4.00 [facility] Comment on above: This test was perfor med using the TPSA assay method for [employer] chemistry system. Values obtained with differentassay methods cannot be used interchangably.When changing PSA assays in the course of monitoring apatient, additional sequential testing should be carriedout to confirm baseline values. Thyroid Stimulating Hormone (TSH) 1.66 uIU/mL 0.358-3.74 [facility] Platelets bldOrdered By: Rod William on 09-23-2022 Platelets (Bld) [#/Vol] 132 10*3/uL 150-450 [facility] Serum or plasma albumin jef urement (mass/volume)Ordered By: Harmony William on 09-23-2022 Albumin [Mass/Vol] 3.3 g/dL 3.2-5.0 [facility] Serum or plasma albumin/glob ulin mass ratioOrdered By: Harmony William on 09-23-2022 Albumin/Globulin [Mass ratio] 0.8 {ratio} 0.9-2.4 [facility] Serum or plasma calcium jef urement (mass/volume)Ordered By: Harmony William on 09-23-2022 Calcium [Mass/Vol] 9.5 mg/dL 8.5-10.1 [facility] Serum or plasma cholesterol in HDL measurement (mass/volume)Ordered By: Harmony William on 09-23-2022 Cholesterol in HDL [Mass/Vol] 59 mg/dL >40 [facility] Comment on above: The drugs N-Acetylcy steine and Metamizole may falsely depress this assay. Reference Range HDL <40 mg/dL Low HDL Cholesterol HDL >or= 60 mg/dL High HDL Cholesterol Serum or plasma cholesterol in VLDL measurement (mass/volume)Ordered By: Harmony William on 09-23-2022 Cholesterol in VLDL [Mass/Vol] 22 mg/dL 5-40 [facility] Serum or plasma creatinine m easurement (mass/volume)Ordered By: Raoulzulay Rodriguezefrencyndee on 09-23-2022 Creatinine [Mass/Vol] 1.07 mg/dL 0.70-1.30 [facility] Comment on above: The validity of the calculated GFR & GFRAA in patients over 70 years has not been determined. Clinical correlation is essential. Serum or plasma low density lipoprotein (LDL) cholesterol measurement (mass/volume)Ordered By: Abhishekgaithersburgzulay William on 09-23-2022 Cholesterol in LDL [Mass/Vol] 58 mg/dL 0-130 [facility] Serum or plasma urea nitroge n measurement (mass/volume)Ordered By: nena Rodriguezcyndee on 09-23-2022 Urea nitrogen [Mass/Vol] 17 mg/dL 7-18 [facility] Thin prep Papanicolaou smear with manual screeningOrdered By: Abhisheknamanzulay William on 09-23-2022 Thin prep Papanicolaou smear with manual screening 12 U/L 15-37 [facility] Thin prep Papanicolaou smear with manual screening 8 5-15 [facility] FLURSVon 05-01-2022 Flu A PCR (AO) Negative Normal Negative [facility] ([place]) Comment on above: Result Comment: Posi tive Results: Positive Flu A/B or RSV for by PCR. Positive test results do not rule out bacterial infection or co-infection with other pathogens. Test results should be interpreted in conjunction with other laboratory and clinical data. Negative Results: Negative for by PCR. Negative test results do not preclude influenza virus or RSV infection and should not be used as the sole basis for diagnosis, treatment, or other management decisions. There is a risk of false negative RSV results when at low concentration and in the presence of co-infection with high concentration of influenza A. Invalid Results: An Invalid result (INV) was obtained. The test was repeated with similar results. REPEAT COLLECTION AND TESTING IS RECOMMENDED. The [employer]on Flu A/B & RSV Assay is a real-time polymerase chain reaction (PCR) based qualitative in vitro diagnostic test for the direct detection and differentiation of influenza A virus, influenza B virus, and respiratory syncytial virus (RSV) nucleic acid in nasopharyngeal swab (SEO CONSULTANT) specimens from patients with signs and symptoms of respiratory infection in conjunction with clinical and laboratory findings. The test is intended for use as an aid in the differential diagnosis of influenza A virus, influenza B virus, and RSV in humans and is not intended to detect influenza C. Performed By: #### F LURSV #### [address] [id number] Flu B PCR (AO) Negative Normal Negative [facility] ([place]) Comment on above: Result Comment: Posi tive Results: Positive Flu A/B or RSV for by PCR. Positive test results do not rule out bacterial infection or co-infection with other pathogens. Test results should be interpreted in conjunction with other laboratory and clinical data. Negative Results: Negative for by PCR. Negative test results do not preclude influenza virus or RSV infection and should not be used as the sole basis for diagnosis, treatment, or other management decisions. There is a risk of false negative RSV results when at low concentration and in the presence of co-infection with high concentration of influenza A. Invalid Results: An Invalid result (INV) was obtained. The test was repeated with similar results. REPEAT COLLECTION AND TESTING IS RECOMMENDED. The [employer] Flu A/B & RSV Assay is a real-time polymerase chain reaction (PCR) based qualitative in vitro diagnostic test for the direct detection and differentiation of influenza A virus, influenza B virus, and respiratory syncytial virus (RSV) nucleic acid in nasopharyngeal swab (SEO CONSULTANT) specimens from patients with signs and symptoms of respiratory infection in conjunction with clinical and laboratory findings. The test is intended for use as an aid in the differential diagnosis of influenza A virus, influenza B virus, and RSV in humans and is not intended to detect influenza C. Performed By: #### F LURSV #### [address] [address] RSV PCR (AO) Negative Normal Negative [facility] ([place]) Comment on above: Result Comment: Posi tive Results: Positive Flu A/B or RSV for by PCR. Positive test results do not rule out bacterial infection or co-infection with other pathogens. Test results should be interpreted in conjunction with other laboratory and clinical data. Negative Results: Negative for by PCR. Negative test results do not preclude influenza virus or RSV infection and should not be used as the sole basis for diagnosis, treatment, or other management decisions. There is a risk of false negative RSV results when at low concentration and in the presence of co-infection with high concentration of influenza A. Invalid Results: An Invalid result (INV) was obtained. The test was repeated with similar results. REPEAT COLLECTION AND TESTING IS RECOMMENDED. The [employer] Flu A/B & RSV Assay is a real-time polymerase chain reaction (PCR) based qualitative in vitro diagnostic test for the direct detection and differentiation of influenza A virus, influenza B virus, and respiratory syncytial virus (RSV) nucleic acid in nasopharyngeal swab (SEO CONSULTANT) specimens from patients with signs and symptoms of respiratory infection in conjunction with clinical and laboratory findings. The test is intended for use as an aid in the differential diagnosis of influenza A virus, influenza B virus, and RSV in humans and is not intended to detect influenza C. Performed By: #### F DAVID #### [place] [address] LABORATORYOrdered By: Antoinette Humphrey on 05-01-2022 FLUAV RNA ROXANNA+probe Ql (Upper resp) Negative (05/01/22 6:59 PM) Invalid Interpretation Code Negative AO Auto Urine SS FLUBV RNA ROXANNA+probe Ql (Upper resp) Negative (05/01/22 6:59 PM) Invalid Interpretation Code Negative AO Auto Urine SS RSV RNA ROXANNA+probe Ql (Upper resp) Negative (05/01/22 6:59 PM) Invalid Interpretation Code Negative AO Auto Urine SS Vital Signs Date Time Vital Sign Value Performing Clinician Pj puentes 03-09-2023 14:48-0500 Body height 160.[address] Harmony William Work Phone: [facility] 03-09-2023 14:48-0500 Body temperature 98.4 [degF] Dr. Harmony William Work Phone: [facility] 03-09-2023 14:48-0500 Diastolic blood pressure 78 mm[Hg] Dr. Harmony William Work Phone: [facility] 03-09-2023 14:48-0500 Heart rate 120 /min Dr. Harmony William Work Phone: [facility] 03-09-2023 14:48-0500 Respiratory rate 17 /min Dr. Harmony William Work Phone: [facility] 03-09-2023 14:48-0500 SaO2% (BldA) [Mass fraction] 96 % Dr. Harmony William Work Phone: [facility] 03-09-2023 14:48-0500 Systolic blood pressure 100 mm[Hg] Dr. Harmony William Work Phone: [facility] 11-05-2022 15:08-0400 Body height 160.[address] Harmony William Work Phone: [facility] 11-05-2022 15:08-0400 Body mass index (BMI) [Ratio] 28.1 kg/m2 Dr. Harmony William Work Phone: [facility] 11-05-2022 15:08-0400 Body temperature 98.1 [degF] Dr. Harmony William Work Phone: [facility] 11-05-2022 15:08-0400 Body weight 72.[address] Harmony William Work Phone: [facility] 11-05-2022 15:08-0400 Diastolic blood pressure 60 mm[Hg] Dr. Harmony William Work Phone: [facility] 11-05-2022 15:08-0400 Heart rate 106 /min Dr. Harmony William Work Phone: [facility] 11-05-2022 15:08-0400 Respiratory rate 6 /min Dr. Harmony William Work Phone: [facility] 11-05-2022 15:08-0400 SaO2% (BldA) [Mass fraction] 98 % Dr. Harmony William Work Phone: [facility] 11-05-2022 15:08-0400 Systolic blood pressure 96 mm[Hg] Dr. Harmony William Work Phone: [facility] 10-20-2022 14:48-0400 Body temperature 97.8 [degF] Dr. Harmony William Work Phone: [facility] 10-20-2022 14:48-0400 Diastolic blood pressure 78 mm[Hg] Dr. Harmony William Work Phone: [facility] 10-20-2022 14:48-0400 Heart rate 78 /min Dr. Harmony William Work Phone: [facility] 10-20-2022 14:48-0400 Respiratory rate 18 /min Dr. Harmony William Work Phone: [facility] 10-20-2022 14:48-0400 SaO2% (BldA) [Mass fraction] 95 % Dr. Harmony William Work Phone: [facility] 10-20-2022 14:48-0400 Systolic blood pressure 102 mm[Hg] Dr. Harmony William Work Phone: [facility] 10-18-2022 10:36-0400 Body height 160.[address] Harmony William Work Phone: [facility] 10-18-2022 10:36-0400 Body weight 68.[address] Harmony William Work Phone: [facility] 10-17-2022 20:56-0400 Body mass index (BMI) [Ratio] 26.6 kg/m2 Dr. Harmony William Work Phone: [facility] 10-17-2022 19:54-0400 Body temperature 98.1 [degF] Dr. Harmony William Work Phone: [facility] 10-17-2022 19:54-0400 Diastolic blood pressure 76 mm[Hg] Dr. Harmony William Work Phone: [facility] 10-17-2022 19:54-0400 Heart rate 89 /min Dr. Harmony William Work Phone: [facility] 10-17-2022 19:54-0400 Respiratory rate 16 /min Dr. Harmony William Work Phone: [facility] 10-17-2022 19:54-0400 SaO2% (BldA) [Mass fraction] 96 % Dr. Harmony William Work Phone: [facility] 10-17-2022 19:54-0400 Systolic blood pressure 138 mm[Hg] Dr. Harmony William Work Phone: [facility] 10-17-2022 18:43-0400 Body height 165.[address] Harmony William Work Phone: [facility] 10-08-2022 08:10-0400 Heart rate 92 /min Dr. Harmony William Work Phone: [facility] 10-08-2022 08:10-0400 Respiratory rate 15 /min Dr. Harmony William Work Phone: [facility] 10-08-2022 08:10-0400 SaO2% (BldA) [Mass fraction] 97 % Dr. Harmony William Work Phone: [facility] 10-08-2022 08:00-0400 Diastolic blood pressure 74 mm[Hg] Dr. Harmony William Work Phone: [facility] 10-08-2022 08:00-0400 Systolic blood pressure 104 mm[Hg] Dr. Harmony William Work Phone: [facility] 10-08-2022 05:25-0400 Body height 165.[address] Harmony William Work Phone: [facility] 10-08-2022 05:25-0400 Body mass index (BMI) [Ratio] 25.4 kg/m2 Dr. Harmony William Work Phone: [facility] 10-08-2022 05:25-0400 Body temperature 97.8 [degF] Dr. Harmony William Work Phone: [facility] 10-08-2022 05:25-0400 Body weight 69.[address] Harmony William Work Phone: [facility] 09-23-2022 15:03-0400 Body temperature 99.2 [degF] Dr. Harmony William Work Phone: [facility] 09-23-2022 15:03-0400 Diastolic blood pressure 68 mm[Hg] Dr. Harmony William Work Phone: [facility] 09-23-2022 15:03-0400 Heart rate 142 /min Dr. Harmony William Work Phone: [facility] 09-23-2022 15:03-0400 Respiratory rate 16 /min Dr. Harmony William Work Phone: [facility] 09-23-2022 15:03-0400 SaO2% (BldA) [Mass fraction] 96 % Dr. Harmony William Work Phone: [facility] 09-23-2022 15:03-0400 Systolic blood pressure 98 mm[Hg] Dr. Harmony William Work Phone: [facility] Encounters Encounter Date Encounter Type Care Provider Facility Start: 06-23-2024 Non-patient / Non-visit Dr. Mango [facility] Start: 06-23-2024 End: 06-23-2024 ambulatory Jose Angelbusukumar Abebe [employer] Work Phone: [facility] Work Phone: Start: 06-23-2024 End: 06-23-2024 Patient encounter procedure Femi Abebe [employer] RISK ANALYST-C -Cardiovascular Services Work Phone: Start: 06-23-2024 End: 06-23-2024 ambulatory Manuel Zhou [facility] Facility:[facility] Start: 04-20-2024 End: 04-20-2024 ambulatory Femi Abebe [employer] RISK ANALYST-C Work Phone: [facility] Work Phone: Start: 04-20-2024 End: 04-20-2024 Patient encounter procedure Femi Abebe [employer]ET RISK ANALYST-C -Laboratory, [facility] Start: 04-20-2024 End: 04-20-2024 ambulatory Femi Abebe [facility] Facility:[facility] Start: 04-08-2023 End: 04-08-[address] Harmony William Work Phone: [facility] Work Phone: Start: 04-08-2023 End: 04-08-[address] Harmony William Work Phone: [facility] Start: 03-10-2023 End: 03-10-[address] Harmony William Work Phone: [facility] Work Phone: Start: 03-10-2023 End: 03-10-[address] Harmony William Work Phone: [facility] Start: 03-09-2023 End: 03-09-[address] Harmony William Work Phone: [facility] Work Phone: Start: 02-11-2023 End: 02-11-2023 ambulatory [facility] Work Phone: Start: 02-11-2023 End: 02-11-2023 Departed Referred [facility] Start: 01-15-2023 Registered Referred [facility] Start: 01-05-2023 End: 01-05-[address] Harmony William Work Phone: [facility] Work Phone: Start: 01-05-2023 End: 01-05-[address] Harmony William Work Phone: [facility] Start: 12-17-2022 End: 12-17-[address] Harmony William Work Phone: [facility] Start: 11-19-2022 End: 11-19-[address] Harmony William Work Phone: [facility] Start: 11-05-2022 End: 11-05-[address] Harmony William Work Phone: [facility] Work Phone: Start: 11-04-[address] Garry William Work Phone: [facility] Start: 10-22-[address] Garry William Work Phone: [facility] Start: 10-20-2022 Non-patient / Non-visit Dr. Tammie William Work Phone: [facility] Work Phone: Start: 10-19-2022 Non-patient / Non-visit Dr. Tammie William Work Phone: [facility] Work Phone: Start: 10-18-2022 Non-patient / Non-visit Dr. Tammie William Work Phone: [facility] Work Phone: Start: 10-17-2022 End: 10-20-2022 Evaluation and management of inpatient Dr. Harmony William Work Phone: [facility]Medical Surgical 3 Work Phone: Start: 10-08-2022 End: 10-08-2022 Emergency department patient visit Dr. Harmony William Work Phone: [facility]Emergency Department Work Phone: Start: 09-23-2022 End: 09-23-[address] Harmony William Work Phone: [facility] Work Phone: Start: 05-01-2022 End: 05-06-2022 ambulatory SKYLAR MAURO MD Facility:B Start: 05-01-2022 End: 05-05-2022 Outreach Lab SKYLAR MAURO MD [facility] Procedures Date Procedure Procedure Detail Performing Clinician Start: 10-18-2022 Bacteria identified in Blood by Culture Dr. Harmony William Work Phone: Start: 10-18-[address] Garry William Work Phone: Start: 10-18-2022 CT of soft tissues o f neck with contrast Dr. Harmony William Work Phone: Start: 10-08-2022 CT of head without contrast Dr. Harmony William Work Phone: Start: 03-08-2017 Repair of hip SKYLAR JAMES MD Comment on above: right Plan of Treatment Date Care Activity Detail Author Start: 10-26-2022 Blood chemistry [facility] Start: 10-25-2022 Blood chemistry [facility] Start: 10-24-2022 Blood chemistry [facility] Start: 10-23-2022 Blood chemistry [facility] Start: 10-22-2022 Blood chemistry [facility] Start: 10-21-2022 Blood chemistry [facility] Start: 10-20-2022 Patient discharge [facility] Start: 10-19-2022 Consultation [facility] Start: 10-19-2022 Referral to ear, nos e and throat service [facility] Start: 10-18-2022 Bacteria identified in Blood by Culture Blood Culture [facility] Start: 10-18-2022 End: 10-18-2022 Blood culture [facility] Start: 10-18-2022 [facility] Start: 10-17-2022 Insertion of cathete r into peripheral vein [facility] Start: 10-17-2022 Oxygen therapy [facility] Start: 10-17-2022 [facility] Start: 10-17-2022 Providing care accor ding to standard [facility] Start: 10-17-2022 Provision of activit y privileges [facility] Start: 10-17-2022 Referral to occupati onal therapist [facility] Start: 10-17-2022 Referral to service [facility] Start: 10-17-2022 Speech therapy assessment [facility] Start: 10-17-2022 [facility] Start: 10-17-2022 Following clinical p athway protocol [facility] Start: 10-17-2022 Verification routine [facility] Start: 10-17-2022 Admission procedure [facility] Start: 10-17-2022 Patient referral to dietitian [facility] Start: 09-23-2022 Patient referral [facility] Work Phone: Blood ammonia measurement [facility] Complete blood count [facility] Measurement of substance [facility] Patient Education [facility] Work Phone: Patient referral [facility] Work Phone: Valproate [Mass/volu me] in Serum or Plasma [facility] Immunizations Immunization Date Immunization Notes Care Provider Amira brown 12-02-2020 influenza, injectabl e, quadrivalent, preservative free Dr. Harmony William Work Phone: [facility] 12-02-2020 influenza, seasonal, injectable Dr. Harmony William Work Phone: [facility] 05-23-2020 Covid (Moderna) Dr. Nuria William Work Phone: [facility] 12-06-[address] Harmony William Work Phone: [facility] 12-03-2017 influenza, injectabl e, quadrivalent, preservative free Dr. Harmony William Work Phone: [facility] 12-03-2017 influenza, seasonal, injectable Dr. Harmony William Work Phone: [facility] 12-21-2016 influenza, injectabl e, quadrivalent, preservative free Dr. Harmony William Work Phone: [facility] 12-21-2016 influenza, seasonal, injectable Dr. Harmony William Work Phone: [facility] Payers Date Payer Category Payer Medicare [id number] 2024 Self-pay [id number] 2022 Medicaid [id number] 2022 Unknown [id number] 1981 Medicare MEDICARE PART A B [id number] 1960 Unknown [id number] Unknown [id number] Unknown [id number] Unknown [id number] Unknown [id number] Social History Date Type Detail Facility Tobacco smoking status Never smo ked tobacco (finding) [facility] Start: 1960 Sex Assigned At Male A [facility] Start: 10-08-2022 End: 03-09-2023 Tobacco smoking status [place] Unknown if ever smoked [facility] Start: 06-30-2018 None [facility] Start: 06-30-2018 With Family [facility] Start: 12-31-2017 Non-smoker;Chew;- [facility] Start: 03-09-2023 Tobacco smoking stat us [place] Smokes tobacco daily (finding) [facility] Start: 05-02-2024 Sex Male (finding) [facility] Medical Equipment Procedure Code Equipment Code Equipment Origin al Text Equipment Identifier Dates Primary uncemented total hip replacement ACCOLDE II 127D ANGLE STEM FDA Start: 12-13-2017 Primary uncemented total hip replacement BIOLOX DELTA CERAMIC FEM HEAD FDA Start: 12-13-2017 Primary uncemented total hip replacement MDM CEMENTLESS LINER FDA Start: 12-13-2017 Primary uncemented total hip replacement BAPTIST ADM/MDM INSERT FDA Start: 12-13-2017 Primary uncemented total hip replacement TRIDENT II TRITAN CLUSTHOL SHL FDA Start: 12-13-2017 Primary uncemented total hip replacement ACCOLDE II 127D ANGLE STEM FDA Start: 12-13-2017 Primary uncemented total hip replacement BIOLOX DELTA CERAMIC FEM HEAD FDA Start: 12-13-2017 Primary uncemented total hip replacement MDM CEMENTLESS LINER FDA Start: 12-13-2017 Primary uncemented total hip replacement BAPTIST ADM/MDM INSERT FDA Start: 12-13-2017 Primary uncemented total hip replacement TRIDENT II TRITAN CLUSTHOL SHL FDA Start: 12-13-2017 Primary uncemented total hip replacement ACCOLDE II 127D ANGLE STEM FDA Start: 12-13-2017 Primary uncemented total hip replacement BIOLOX DELTA CERAMIC FEM HEAD FDA Start: 12-13-2017 Primary uncemented total hip replacement MDM CEMENTLESS LINER FDA Start: 12-13-2017 Primary uncemented total hip replacement BAPTIST ADM/MDM INSERT FDA Start: 12-13-2017 Primary uncemented total hip replacement TRIDENT II TRITAN CLUSTHOL SHL FDA Start: 12-13-2017 Primary uncemented total hip replacement ACCOLDE II 127D ANGLE STEM FDA Start: 12-13-2017 Primary uncemented total hip replacement BIOLOX DELTA CERAMIC FEM HEAD FDA Start: 12-13-2017 Primary uncemented total hip replacement MDM CEMENTLESS LINER FDA Start: 12-13-2017 Primary uncemented total hip replacement BAPTIST ADM/MDM INSERT FDA Start: 12-13-2017 Primary uncemented total hip replacement TRIDENT II TRITAN CLUSTHOL SHL FDA Start: 12-13-2017 Primary uncemented total hip replacement ACCOLDE II 127D ANGLE STEM FDA Start: 12-13-2017 Primary uncemented total hip replacement BIOLOX DELTA CERAMIC FEM HEAD FDA Start: 12-13-2017 Primary uncemented total hip replacement MDM CEMENTLESS LINER FDA Start: 12-13-2017 Primary uncemented total hip replacement BAPTIST ADM/MDM INSERT FDA Start: 12-13-2017 Primary uncemented total hip replacement TRIDENT II TRITAN CLUSTHOL SHL FDA Start: 12-13-2017 Primary uncemented total hip replacement ACCOLDE II 127D ANGLE STEM FDA Start: 12-13-2017 Primary uncemented total hip replacement BIOLOX DELTA CERAMIC FEM HEAD FDA Start: 12-13-2017 Primary uncemented total hip replacement MDM CEMENTLESS LINER FDA Start: 12-13-2017 Primary uncemented total hip replacement BAPTIST ADM/MDM INSERT FDA Start: 12-13-2017 Primary uncemented total hip replacement TRIDENT II TRITAN CLUSTHOL SHL FDA Start: 12-13-2017 Primary uncemented total hip replacement ACCOLDE II 127D ANGLE STEM FDA Start: 12-13-2017 Primary uncemented total hip replacement BIOLOX DELTA CERAMIC FEM HEAD FDA Start: 12-13-2017 Primary uncemented total hip replacement MDM CEMENTLESS LINER FDA Start: 12-13-2017 Primary uncemented total hip replacement BAPTIST ADM/MDM INSERT FDA Start: 12-13-2017 Primary uncemented total hip replacement TRIDENT II TRITAN CLUSTHOL SHL FDA Start: 12-13-2017 Primary uncemented total hip replacement ACCOLDE II 127D ANGLE STEM FDA Start: 12-13-2017 Primary uncemented total hip replacement BIOLOX DELTA CERAMIC FEM HEAD FDA Start: 12-13-2017 Primary uncemented total hip replacement MDM CEMENTLESS LINER FDA Start: 12-13-2017 Primary uncemented total hip replacement BAPTIST ADM/MDM INSERT FDA Start: 12-13-2017 Primary uncemented total hip replacement TRIDENT II TRITAN CLUSTHOL SHL FDA Start: 12-13-2017 Primary uncemented total hip replacement ACCOLDE II 127D ANGLE STEM FDA Start: 12-13-2017 Primary uncemented total hip replacement BIOLOX DELTA CERAMIC FEM HEAD FDA Start: 12-13-2017 Primary uncemented total hip replacement MDM CEMENTLESS LINER FDA Start: 12-13-2017 Primary uncemented total hip replacement BAPTIST ADM/MDM INSERT FDA Start: 12-13-2017 Primary uncemented total hip replacement TRIDENT II TRITAN CLUSTHOL SHL FDA Start: 12-13-2017 Goals Date Patient Goal Desired Activity /State Functional Status Date Assessment Result Facility 10-20-2022 Functional status Bedrest [facility] Work Phone: Mental Status Date Assessment Result Facility 10-20-2022 Cognitive function Voice/Name [facility] Work Phone: 10-17-2022 Cognitive function Level Of Cons ciousness Awake;Alert;Appropriate;Follow s Commands [facility] Work Phone: 10-08-2022 Cognitive function Voice/Name [facility] Work Phone: Clinical Notes 10-08-2022 to 10-20-2022 Note Date & Type Note Facility 10-20-2022 Consult note Note Date/Time October 20, 2022 3:33pm [facility] Medical Records Department [address] [place] [address] Counseling Note - Pharmacy 10/20/22 1533 MR#: [id number] Acct: [id number] Name: MIKE ADAMS Rep #:[id number] : 1960 62 From: Angela Patterson PCP: Dr. Harmony William MD Status:A DM IN Y Location: [facility] [id number] [place] Med Reconciliation Pharmacy Service has performed discharge medication reconciliation for this patient upon transfer to SNF. The patient's discharge medication list was reviewed for discrepancies and discrepancies were resolved. Medications at Discharge Home Medications divalproex 250 mg tablet,delayed release 250 mg PO DAILY #30 tabs 09/16/22 divalproex 250 mg tablet,delayed release 500 mg (2 x 250 mg) PO QHS #60 tabs 09/16/22 rivaroxaban 20 mg tablet 20 mg PO DAILY #30 tabs 09/16/22 blood pressure monitor #1 ea 09/23/22 compress.stocking,knee,reg,lrg #2 ea 09/24/22 potassium chloride 20 mEq tablet,extended release 20 meq PO BID #60 tabs 09/24/22 levetiracetam 1,000 mg tablet 500 mg (1/2 x 1,000 mg) PO BID SEIZURES #90 tabs 10/08/22 levothyroxine 50 mcg tablet 50 mcg PO DAILY THYROID #90 tabs 10/08/22 tamsulosin 0.4 mg capsule (Flomax) 0.4 mg PO QHS URINE #90 caps 10/08/22 topiramate 50 mg tablet 50 mg PO BID #60 tabs 10/08/22 atorvastatin 20 mg tablet 20 mg PO DAILY cholesterol 10/17/22 amoxicillin 875 mg-potassium clavulanate 125 mg tablet 1 tab PO BID 5 days #11 tabs 10/20/22 food supplemt, lactose-reduced 0.08 gram-1.5 kcal/mL oral liquid (Ensure Plus High Protein) 120 ml PO 4X/DAY #0 mL 10/20/22 lactulose 20 gram/30 mL oral solution 10 g (15 mL) PO TID #0 mL 10/20/22 mirtazapine 15 mg tablet 15 mg PO QHS mood #30 tabs 10/20/22 10/20/22 1533 <Electronically signed by Angela Patterson > Date _ Angela Patterson Cosigner Signature (if applicable): Date CC: ~ Signed [facility] Work Phone: 1(145) 689-602008-29-2023 Discharge summary Author Liv Tobar [facility] October 20, 2022 2:50pm Note Date/Time October 20, 2022 2: 50pm [facility] Medical Records Department [address] [place] [address] Discharge Summary 10/20/22 1448 MR#: [id number] Acct: [id number] Name: MIKE ADAMS Rep #:[id number] : 1960 62 From: Liv Tobar MD PCP: Dr. Harmony William MD Status:A DM IN Location: [place] [address] Providers Date of Admission: 10/17/22 Date of Discharge: 10/20/22 Primary Care Physician: Dr. Harmony William MD Consultations 10/19/22 05:55 Consult: ENT AM (NON MEDS) Consulting Provider: Omer Castro Reason for Consult: Left mandibular and soft tissue swelling EMERGENT Consult: No Notified: Yes Date Notified: 10/19/22 Time Notified: 08:43 Method of Notification: Answering Service 10/19/22 13:20 Consult: Oral Surgeon Routine Consulting Provider: Aung Benavidez Reason for Consult: Poor dentition w/ significant left sided facial swelling EMERGENT Consult: No Notified: Yes Date Notified: 08/28/23 Time Notified: 13:20 Method of Notification: Verbal Reason For Visit: DEBILITY, FAILURE TO THRIVE Diagnosis Discharge Diagnosis (1) Adult failure to thrive: Status: Acute Code(s): R62.7 - Adult failure to thrive Plan #Failure to thrive, chronic debility #Low blood pressure- improved #Chronic microcytic anemia #Seizure disorder #Poor dentition, concern for oral infection, facial swelling #History of DVT #Hyperlipidemia #Hypothyroidism Medications at Discharge Home Medications divalproex 250 mg tablet,delayed release 250 mg PO DAILY #30 tabs 09/16/22 divalproex 250 mg tablet,delayed release 500 mg (2 x 250 mg) PO QHS #60 tabs 09/16/22 rivaroxaban 20 mg tablet 20 mg PO DAILY #30 tabs 09/16/22 blood pressure monitor #1 ea 09/23/22 compress.stocking,knee,reg,lrg #2 ea 09/24/22 potassium chloride 20 mEq tablet,extended release 20 meq PO BID #60 tabs 09/24/22 levetiracetam 1,000 mg tablet 500 mg (1/2 x 1,000 mg) PO BID SEIZURES #90 tabs 10/08/22 levothyroxine 50 mcg tablet 50 mcg PO DAILY THYROID #90 tabs 10/08/22 tamsulosin 0.4 mg capsule (Flomax) 0.4 mg PO QHS URINE #90 caps 10/08/22 topiramate 50 mg tablet 50 mg PO BID #60 tabs 10/08/22 atorvastatin 20 mg tablet 20 mg PO DAILY cholesterol 10/17/22 amoxicillin 875 mg-potassium clavulanate 125 mg tablet 1 tab PO BID 5 days #11 tabs 10/20/22 food supplemt, lactose-reduced 0.08 gram-1.5 kcal/mL oral liquid (Ensure Plus High Protein) 120 ml PO 4X/DAY #0 mL 10/20/22 lactulose 20 gram/30 mL oral solution 10 g (15 mL) PO TID #0 mL 10/20/22 mirtazapine 15 mg tablet 15 mg PO QHS mood #30 tabs 10/20/22 Hospital Course Summary of Care Provided Minutes Spent on Discharge: 33 Hospital Course: MIKE ADAMS is a 62 M is a 62-year-old male with history of seizure disorder with impaired cognition, poor mobility at baseline, DVT on Xarelto, hypothyroidism, hypertension and BPH who [facility]22 with failure to thrive. 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 He did have some left-sided facial swelling and initially was on Augmentin however due to it being unclear the chronicity and severity he was transitioned to IV antibiotics and dental surgery saw him who did not necessarily think it was dental in nature but recommended continuing antibiotics. MRSA screen was negative so no MRSA coverage needed. CT head and neck to evaluate for any loculations anything that can be drained or for any other warning signs patient did initially have suboptimal blood pressure. And required midodrine, lactic was normal, no other evidence of any endorgan dysfunction and blood cultures no growth to date so do not think patient was septic. He improved with fluids and was weaned off midodrine, seems he has soft blood pressure at baseline which canbe noted moving forward. On day of discharge patient does feel the pain in his face is improved and feels better overall, had no acute complaints. DISCHARGE INSTRUCTIONS PLEASE READ *Please take this with you to your next doctors appointment* -Please follow-up with ENT (ear nose throat) upon discharge for your facial swelling. If you are not already established with an ear nose throat doctor youcan follow- up with [facility]. Please call [phone] to schedule an appointment. -It would be beneficial for you to follow with a dentist upon discharge -Would also be beneficial follow with neurology upon discharge for your seizure disorder -You will need to take Augmentin 875 mg twice daily tonight and then 5 more days. -Would recommend you taking mirtazapine at bedtime to avoid oversedation -Your propranolol has been stopped due to low blood pressure -You have been started on lactulose for elevated ammonia level 2 bowel movementsdaily -Would recommend continuing to wrap legs -Please call your primary care provider's office upon discharge to schedule a hospital follow up within 1 week. -For any concerning signs or symptoms please call 911 or proceed to the nearest emergency department Physical Exam Narrative General: Alert, no apparent distress HEENT: Left-sided facial swelling primarily over jaw extending back towards ear,very poor dentition Eyes: Anicteric Neck: Supple Respiratory: Clear to auscultation bilaterally, normal respiratory effort Cardiovascular: Regular rate and rhythm GI: Soft, nontender, nondistended Extremities: Legs wrapped Musculoskeletal: Moving all extremities Neuro: No overt focal neurological deficits Skin: No drainage mouth Psych: Cooperative Weight / BMI Weight Weight: 68.13 kg Body Mass Index (BMI) 26.6 ABG / Lab / Microbiology Data 10/20/22 03:40 10/20/22 03:40 Laboratory: Laboratory Results - last 24 hr 10/20/22 03:40: WBC 7.0, RBC 3.77 L, Hgb 11.2 L, Hct 36.3 L, MCV 96.3 H, MCH 29.7, MCHC 30.9 L, RDW Std Deviation 50.4 H, RDW Coeff of Colleen 14.3, Plt Count 124 L, MPV 9.4, Immature Gran % (Auto) 0.600, Neut % (Auto) 53.0, Lymph % (Auto)28.1, Tift % (Auto) 15.3 H, Eos % (Auto) 2.3, Baso % (Auto) 0.7, Absolute Neuts (auto) 3.7, Absolute Lymphs (auto) 1.98, Nucleated RBC % 0, Sodium 145, Potassium 3.4 L, Chloride 117 H, Carbon Dioxide 25.0, Anion Gap 3 L, BUN 15, Creatinine 0.79, Estim Creat Clear Calc 78.03, Est GFR (MDRD) Af Amer 128, Est GFR (MDRD) Non-Af 106, BUN/Creatinine Ratio 19.0, Glucose 94, Calcium 8.3 L, Iron 60 L, TIBC 196 L, Iron Saturation 30.6, Ferritin 221, Vitamin B12 510, Folate 4.40, Vancomycin Trough 22.4 H Microbiology: Microbiology 10/18/22 11:35 Blood Culture (Wb) - Left Hand Blood Culture - Preliminary No growth in 5 days. 10/18/22 11:25 Blood Culture (Wb) - Left Hand Blood Culture - Preliminary No growth in 5 days. D/C Instructions Discharge Diet: - (Cardiac, heart healthy) Meaningful Use Info Meaningful Use Diagnoses (Choose all that apply): None applicable Discharge Plan Admission Admit Date/Time: 10/17/22 19:28 Primary Reason for Your Visit: Debility Attending Provider: Liv Tobar Primary Care Provider: Oleghe,Efewongbe Consulting Providers: Randall Marie; Omer Castro; Aung Benavidez Instructions Patient Instructions: ED Fall Prevention Additional Instructions / Restrictions: DISCHARGE INSTRUCTIONS PLEASE READ *Please take this with you to your next doctors appointment* -Please follow-up with ENT (ear nose throat) upon discharge for your facial swelling. If you are not already established with an ear nose throat doctor youcan follow- up with [facility]. Please call [phone] to schedule an appointment. -It would be beneficial for you to follow with a dentist upon discharge -Would also be beneficial follow with neurology upon discharge for your seizure disorder -You will need to take Augmentin 875 mg twice daily tonight and then 5 more days. -Would recommend you taking mirtazapine at bedtime to avoid oversedation -Your propranolol has been stopped due to low blood pressure -You have been started on lactulose for elevated ammonia level 2 bowel movementsdaily -Would recommend continuing to wrap legs -Please call your primary care provider's office upon discharge to schedule a hospital follow up within 1 week. -For any concerning signs or symptoms please call [phone] or proceed to the nearest emergency department Discharge Orders/Prescriptions Prescriptions: New amoxicillin-pot clavulanate 875-125 mg tablet 1 tab PO BID 5 Days Qty: 11 0RF lactulose 20 gram/30 mL Solution 10 g PO TID Qty: 0 0RF Rx Instructions: Titrate to 2 bowel movements daily Ensure Plus High Protein 0.08 gram-1.5 kcal/mL Liquid 120 ml PO 4X/DAY Qty: 0 0RF Continued (DME) blood pressure monitor Kit See Rx Instructions .MEDSUPPLY Qty: 1 0RF Rx Instructions: Check blood pressure daily for hypertension I10 atorvastatin 20 mg tablet 20 mg PO DAILY divalproex 250 mg tablet,delayed release (DR/EC) 250 mg PO DAILY Qty: 30 4RF divalproex 250 mg tablet,delayed release (DR/EC) 500 mg PO QHS Qty: 60 4RF rivaroxaban 20 mg tablet 20 mg PO DAILY Qty: 30 4RF Rx Instructions: TAKE 1 TABLET BY MOUTH DAILY potassium chloride 20 mEq tablet extended release 20 meq PO BID Qty: 60 1RF (DME) compress.stocking,knee,reg,lrg Misc See Rx Instructions .MEDSUPPLY Qty: 2 1RF Rx Instructions: wear daily for venous insufficiency 20-30 mmHg levetiracetam 1,000 mg tablet 500 mg PO BID Qty: 90 0RF levothyroxine 50 mcg tablet 50 mcg PO DAILY Qty: 90 0RF tamsulosin [Flomax] 0.4 mg capsule 0.4 mg PO QHS Qty: 90 0RF topiramate 50 mg tablet 50 mg PO BID Qty: 60 0RF Changed mirtazapine 15 mg tablet 15 mg PO QHS Qty: 30 0RF Discontinued propranolol 60 mg capsule,extended release 24 hr 60 mg PO DAILY Qty: 90 3RF atorvastatin 40 mg tablet 20 mg PO DAILY Qty: 45 0RF mirtazapine 30 mg tablet 15 mg PO DAILY Qty: 45 0RF Referrals / Follow Up: Omer Castro MD [Med Staff - Active Staff] - Within 1 Week Harmony William MD [Primary Care Provider] - Within 1 Week Disposition Disposition (needs filled in before D/C Order can be placed): [facility] Facility Charges/Coding Visit Charges Inpatient E&M: 20455 Disch Hosp >30min 10/20/22 1450 <Electronically signed by Liv Tobar MD> Cosigner Signature (if applicable): CC: Dr. Harmony William MD; Dr. Liv Tobar MD~ Signed [facility] Work Phone: 1(175) 391-733708-29-2023 Discharge summary Author Liv Tobar [facility] October 20, 2022 2:48pm Note Date/Time October 20, 2022 2: 30pm [facility] Medical Records Department [address] [place] [id number] Transfer to [facility] MR#: [id number] Acct: [id number] Name: MIKE ADAMS Rep #:[id number] : 1960 62 From: Liv Tobar MD PCP: Dr. Harmony William MD Status:A DM IN Certification of patient admission REQUIRED AT TIME OF ADMISSION. I CERTIFY THAT POST-HOSPITAL ECF SERVICES ARE REQUIRED TO BE GIVEN ON AN IN-PATIENT BASIS BECAUSE OF THE ABOVE NAMED PATIENT'S NEED FOR PRISON CARE ON A CONTINUING BASIS FOR THE CONDITION(S) FOR WHICH HE/SHE WAS RECEIVING IN-PATIENT HOSPITAL SERVICES PRIOR TO HIS/HER TRANSFER TO THE [facility]. 10/20/22 1448<Electronically signed by Liv Tobar MD> Diet Diet Order/Speech Therapy: 10/17/22 20:55 Diet: Cardiac - Heart Healthy Food consistency:: Easy to Chew Liquid Consistency:: Regular/Thin Is pt able to select menu?: No Routine Orders/Code Status Suppository Type: Dulcolax 10mg Suppository Frequency: Daily PRN Code Status: Full Code Wound(s) RT HAND: Wound Type: Abrasion RT BUTTOCK: Wound Type: Pressure Injury Therapies Physical Therapy: Eval and Treat Occupational Therapy: Eval and Treat Problem/Diagnosis (1) Adult failure to thrive: Status: Acute Code(s): R62.7 - Adult failure to thrive Plan #Failure to thrive, chronic debility #Low blood pressure- improved #Chronic microcytic anemia #Seizure disorder #Poor dentition, concern for oral infection, facial swelling #History of DVT #Hyperlipidemia #Hypothyroidism MIKE ADAMS is a 62 M is a 62-year-old male with history of seizure disorder with impaired cognition, poor mobility at baseline, DVT on Xarelto, hypothyroidism, hypertension and BPH who presented to [facility] on 10/17/2022 with failure to thrive. 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 He did have some left-sided facial swelling and initially was on Augmentin however due to it being unclear the chronicity and severity he was transitioned to IV antibiotics and dental surgery saw him who did not necessarily think it was dental in nature but recommended continuing antibiotics. MRSA screen was negative so no MRSA coverage needed. CT head and neck to evaluate for any loculations anything that can be drained or for any other warning signs patient did initially have suboptimal blood pressure. And required midodrine, lactic was normal, no other evidence of any endorgan dysfunction and blood cultures no growth to date so do not think patient was septic. He improved with fluids and was weaned off midodrine, seems he has soft blood pressure at baseline which canbe noted moving forward. On day of discharge patient does feel the pain in his face is improved and feels better overall, had no acute complaints. DISCHARGE INSTRUCTIONS PLEASE READ *Please take this with you to your next doctors appointment* -Please follow-up with ENT (ear nose throat) upon discharge for your facial swelling. If you are not already established with an ear nose throat doctor youcan follow- up with [facility]. Please call [phone] to schedule an appointment. -It would be beneficial for you to follow with a dentist upon discharge -Would also be beneficial follow with neurology upon discharge for your seizure disorder -You will need to take Augmentin 875 mg twice daily tonight and then 5 more days. -Would recommend you taking mirtazapine at bedtime to avoid oversedation -Your propranolol has been stopped due to low blood pressure -You have been started on lactulose for elevated ammonia level 2 bowel movementsdaily -Would recommend continuing to wrap legs -Please call your primary care provider's office upon discharge to schedule a hospital follow up within 1 week. -For any concerning signs or symptoms please call 911 or proceed to the nearest emergency department Allergies/Procedures Done in Hospital Allergies No Known Allergies Allergy (Verified 10/08/22 05:21) Type of Care/Length of Stay Estimated LOS: Convalescent Care Less Than 30 days Type of Care Needed: Skilled Rehab Potential: Fair Prognosis: Fair Additional Orders/Day of Discharge Day of Discharge: 10/20/22 Dietary and Speech Recommendations Dietitian Recommendations/Changes: Continue with Cardiac diet at this time 2/2 edema. Will order You BID w/ medpass to promote wound healing. Continue with Ensure Plus High Protein 120mL 4x/day as well. Will modify interventions as needed upon f/u. Discharge Plan Admission Admit Date/Time: 10/17/22 19:28 Primary Reason for Your Visit: Debility Attending Provider: Liv Tobar Primary Care Provider: Harmony William Consulting Providers: Randall Marie; Omer Castro; Aung Benavidez Instructions Patient Instructions: ED Fall Prevention Additional Instructions / Restrictions: DISCHARGE INSTRUCTIONS PLEASE READ *Please take this with you to your next doctors appointment* -Please follow-up with ENT (ear nose throat) upon discharge for your facial swelling. If you are not already established with an ear nose throat doctor youcan follow- up with [facility]. Please call [phone] to schedule an appointment. -It would be beneficial for you to follow with a dentist upon discharge -Would also be beneficial follow with neurology upon discharge for your seizure disorder -You will need to take Augmentin 875 mg twice daily tonight and then 5 more days. -Would recommend you taking mirtazapine at bedtime to avoid oversedation -Your propranolol has been stopped due to low blood pressure -You have been started on lactulose for elevated ammonia level 2 bowel movementsdaily -Would recommend continuing to wrap legs -Please call your primary care provider's office upon discharge to schedule a hospital follow up within 1 week. -For any concerning signs or symptoms please call 911 or proceed to the nearest emergency department Discharge Orders/Prescriptions Prescriptions: New amoxicillin-pot clavulanate 875-125 mg tablet 1 tab PO BID 5 Days Qty: 11 0RF lactulose 20 gram/30 mL Solution 10 g PO TID Qty: 0 0RF Rx Instructions: Titrate to 2 bowel movements daily Ensure Plus High Protein 0.08 gram-1.5 kcal/mL Liquid 120 ml PO 4X/DAY Qty: 0 0RF Continued (DME) blood pressure monitor Kit See Rx Instructions .MEDSUPPLY Qty: 1 0RF Rx Instructions: Check blood pressure daily for hypertension I10 atorvastatin 20 mg tablet 20 mg PO DAILY divalproex 250 mg tablet,delayed release (DR/EC) 250 mg PO DAILY Qty: 30 4RF divalproex 250 mg tablet,delayed release (DR/EC) 500 mg PO QHS Qty: 60 4RF rivaroxaban 20 mg tablet 20 mg PO DAILY Qty: 30 4RF Rx Instructions: TAKE 1 TABLET BY MOUTH DAILY potassium chloride 20 mEq tablet extended release 20 meq PO BID Qty: 60 1RF (DME) compress.stocking,knee,reg,lrg Misc See Rx Instructions .MEDSUPPLY Qty: 2 1RF Rx Instructions: wear daily for venous insufficiency 20-30 mmHg levetiracetam 1,000 mg tablet 500 mg PO BID Qty: 90 0RF levothyroxine 50 mcg tablet 50 mcg PO DAILY Qty: 90 0RF tamsulosin [Flomax] 0.4 mg capsule 0.4 mg PO QHS Qty: 90 0RF topiramate 50 mg tablet 50 mg PO BID Qty: 60 0RF Changed mirtazapine 15 mg tablet 15 mg PO QHS Qty: 30 0RF Discontinued propranolol 60 mg capsule,extended release 24 hr 60 mg PO DAILY Qty: 90 3RF atorvastatin 40 mg tablet 20 mg PO DAILY Qty: 45 0RF mirtazapine 30 mg tablet 15 mg PO DAILY Qty: 45 0RF Referrals / Follow Up: Omer Castro MD [Med Staff - Active Staff] - Within 1 Week Harmony William MD [Primary Care Provider] - Within 1 Week Disposition Disposition (needs filled in before D/C Order can be placed): [facility] 10/20/22 1448 <Electronically signed by Liv Tobar MD> Cosigner Signature (if applicable): CC: Dr. Randall Marie, DO; Dr. Omer Castro MD; Dr. Harmony William MD; Dr. Aung Benavidez DDS ~ [facility] Work Phone: 1(405) 643-798508-29-2023 Progress note Author Liv [facility] October 20, 2022 1:18pm Note Date/Time October 20, 2022 7: 53am [facility] Medical Records Department [address] [place] [address] Progress Note - Hospitalist 10/20/22 0751 MR#: [id number] Acct: [id number] Name: MIKE ADAMS Rep #:[id number] : 1960 62 From: Liv Tobar MD PCP: Dr. Harmony William MD Status:A DM IN Location: [place] [address] Reason for Visit Reason for Visit: Diagnoses Chronic gingivitis, plaque induced (10/17/22) Adult failure to thrive (10/17/22) Subjective Subjective Patient reports he continues to feel better, eating well, no difficulty breathing, no acute complaints Objective Data Objective Data Vital Signs: Vital Signs Temp Pulse Resp BP Pulse Ox O2 Del Method 97.6 F L 81 18 98/63 96 Room Air 10/20/22 04:19 10/20/22 04:19 10/20/22 04:19 10/20/22 04:19 10/20/22 04:19 10/20/22 04:19 Oxygen Delivery Method Room Air Weight: 68.13 kg Body Mass Index (BMI) 26.6 Intake & Output: Intake and Output for Last 24 Hours 10/18/22 10/19/22 10/20/22 23:59 23:59 23:59 Intake Total 2955 / 2955 3568.33 / 4768.33 1515 / 1515 Output Total 500 / 1300 1400 / 1400 500 / 500 Balance 2455 / 1655 2168.33 / 3368.33 1015 / 1015 Lab / Micro Data 10/20/22 03:40 10/20/22 03:40 Labs: Laboratory Results - last 24 hr 10/20/22 03:40: WBC 7.0, RBC 3.77 L, Hgb 11.2 L, Hct 36.3 L, MCV 96.3 H, MCH 29.7, MCHC 30.9 L, RDW Std Deviation 50.4 H, RDW Coeff of Colleen 14.3, Plt Count 124 L, MPV 9.4, Immature Gran % (Auto) 0.600, Neut % (Auto) 53.0, Lymph % (Auto)28.1, Tift % (Auto) 15.3 H, Eos % (Auto) 2.3, Baso % (Auto) 0.7, Absolute Neuts (auto) 3.7, Absolute Lymphs (auto) 1.98, Nucleated RBC % 0, Sodium 145, Potassium 3.4 L, Chloride 117 H, Carbon Dioxide 25.0, Anion Gap 3 L, BUN 15, Creatinine 0.79, Estim Creat Clear Calc 78.03, Est GFR (MDRD) Af Amer 128, Est GFR (MDRD) Non-Af 106, BUN/Creatinine Ratio 19.0, Glucose 94, Calcium 8.3 L, Iron 60 L, TIBC 196 L, Iron Saturation 30.6, Ferritin 221, Vitamin B12 510, Folate 4.40, Vancomycin Trough 22.4 H Physical Exam Narrative General: Alert, no apparent distress HEENT: Left-sided facial swelling primarily over jaw extending back towards ear,very poor dentition Eyes: Anicteric Neck: Supple Respiratory: Clear to auscultation bilaterally, normal respiratory effort Cardiovascular: Regular rate and rhythm GI: Soft, nontender, nondistended Extremities: Legs wrapped Musculoskeletal: Moving all extremities Neuro: No overt focal neurological deficits Skin: No drainage mouth Psych: Cooperative Assessment & Plan Assessment/Plan (1) Adult failure to thrive: PLAN: Plan Patient is a 62-year-old male with history of seizure disorder with impaired cognition, poor mobility at baseline, DVT on Xarelto, hypothyroidism, hypertension and BPH who presented to [facility] ED on 10/17/2022 withfailure to thrive. #Failure to thrive, chronic debility Patient was previously in a fdc for about a year. Was taken out by caregiver due to perceived poor care. Has not been home for about 6 months to 1year, but caregiver states she is unable to take care of him any longer. Caregiver notes no abrupt decline in function, but rather steady decline over time. Patient ambulates with a walker but ambulates very slowly and has had some minor falls recently. He appears to have underlying cognitive delay, possibly due to seizure disorder as noted below. Was essentially nonverbal withme in the room. Was able to make appropriate eye contact. Appeared quite weak. -Admit to inpatient bed on MedSurg floor. PT/OT/case management consulted. Of note, patient was previously at a fdc in [place] and caregiver would not like him to return there. However, she is hoping for long-term placement. -10/18: PT/OT, case management social work -10/19: Continue supportive care, will need placement -10/20: Referrals sent #Low blood pressure -TSH within normal limits -Does have slight elevation in BUN, query if there is a component of dehydration, will give fluids and assess for improvement -Continue Augmentin, no other signs or symptoms suggestive of severe infection necessitating IV antibiotics -Continue to hold propranolol -10/18: Given concern for dental infection will switch to IV antibiotics and obtain blood cultures however to verify no other underlying etiology, patient presently asymptomatic -10/19: Started on fluids and midodrine for blood pressure support, will try to titrate down midodrine as tolerated and continue to hold propranolol -10/20: Tolerated down titration of midodrine, ultimately anticipate will be ableto stop this #Chronic microcytic anemia -12.4 on admission, 10.6 today but also lines dropped and suspect this is dilutional with the fluids, no signs of blood loss, continue to monitor -Can consider FOBT or further work-up if does not stabilize -We will check iron panel, B12, folate -10/20: Stable, iron panel consistent with anemia of chronic disease B12 and folate within normal limits #Seizure disorder Home medications of divalproex, Keppra and topiramate. Caregiver states has been taking his as prescribed. He apparently had a seizure about 8 days ago, presented to the ED for that. Brain CT at that time was negative. Labs were unremarkable. Was discharged home. -Continue home seizure medications. -10/18: Given his Depakote use his Depakote level, ammonia, liver panel were checked, ammonia slightly elevated at 46, valproic acid level 106, liver panel unremarkable -10/19: Continue present measures #Poor dentition, concern for oral infection ? Poor dentition noted on exam today. Admission labs pending. Will treat empirically with Augmentin for 5 to 7-day course. -10/18: Exam as above, given the extent of the swelling will obtain CT head and neck to evaluate for any loculations anything that can be drained or for any other warning signs or symptoms and will switch to IV antibiotics, patient denies problems swallowing or breathing and is managing secretions without difficulty, feels about the same if not better than yesterday. We will follow-up CT for further management -10/19: CT head as above, given persistence of the left-sided facial swelling in association with his poor dentition and tooth broke off we will consult oral surgery for input, continue to biotics and monitor cultures -10/20: Evaluated by dental surgery who did not feel this was dental in nature and recommended continuing current management, MRSA screen negative so we will discontinue vancomycin, will transition to Augmentin when patient discharged #History of DVT ? Continue home Xarelto. #Hyperlipidemia ? Continue home atorvastatin. #Hypothyroidism ? Continue home Synthroid. -TSH 09/23/22 wnl at 1.66 DVT prophylaxis: Xarelto CODE STATUS: Full code, verified. Confirmed with caregiver on admission. Expected disposition: SNF, TBD Total clinical time spent by myself addressing the patient's medical issues, reviewing all the data, and collaborating with patient's care team: 40 minutes. Charges/Coding Visit Charges Inpatient E&M: 60835 Subs Hosp L2 10/20/22 1318 <Electronically signed by Liv Tobar MD> Cosigner Signature (if applicable): CC: ~ Signed [facility] Work Phone: 1(572) 456-289108-29-2023 Consult note Author Morgan Puentes [facility] October 20, 2022 4:48am Note Date/Time October 20, 2022 4: 48am [facility] Medical Records Department [address] [place] [address] Pharmacokinetic/Renal -Consult 10/20/22446 MR#: [id number] Acct: [id number] Name: MIKE ADAMS Rep #:[id number] : 1960 62 From: Morgan Kidd od PCP: Dr. Harmony William MD Status:A DM IN Y Location: [place] BP561-8 Consult Antibiotic Management Pharmacy has been consulted to manage selected antiobiotic: Vancomycin Type of Intervention Type of Consult: Follow-up Labs Labs: Sodium 145 mmol/L (136-145) 10/20/22 03:40 Potassium 3.4 mmol/L (3.5-5.1) L 10/20/22 03:40 Chloride 117 mmol/L (98-107) H 10/20/22 03:40 Carbon Dioxide 25.0 mmol/L (21.0-32.0) 10/20/22 03:40 Anion Gap 3 (5-15) L 10/20/22 03:40 BUN 15 mg/dL (7-18) 10/20/22 03:40 Creatinine 0.79 mg/dL (0.70-1.30) 10/20/22 03:40 Est GFR (MDRD) Af Amer 128 mL/min (>60) 10/20/22 03:40 Est GFR (MDRD) Non-Af 106 mL/min (>60) 10/20/22 03:40 BUN/Creatinine Ratio 19.0 RATIO (10-20) 10/20/22 03:40 Glucose 94 mg/dL (74-106) 10/20/22 03:40 Vancomycin Trough 22.4 ug/mL (5.0-15.0) H 10/20/22 03:40 Goal Trough Goal Trough: 15-20 mcg/mL Pharmacy Plan for Drug Dosing Pharmacy Plan for Drug Dosing: Pharmacy Service will continue to monitor and adjust dosing as required. TROUGH 22.1 @ 11 HOURS. DOSE GIVEN, HOLD NEXT DOSE AND DRAW RANDOM LEVEL TOMORROW AT 0330 Follow-Up Labs Follow-Up Labs: Trough: Vancomycin Date/Time Labs Ordered Labs to be done on [date and time ordered]: 10/21 @ 0330 10/20/22 0448 <Electronically signed by Morgan lind> Date _ Morgna Puentes Cosigner Signature (if applicable): Date CC: ~ Signed [facility] Work Phone: 1(603) 400-109308-28-2023 Consult note Author Liv Tobar [facility] October 19, 2022 5:13pm Note Date/Time October 18, 2022 3: 41pm [facility] Medical Records Department [address] [place] [address] Pharmacokinetic/Renal -Consult 10/18/22 1538 MR#: [id number] Acct: [id number] Name: MIKE ADAMS Rep #:[id number] : 1960 62 From: Eric wadsworth PCP: Dr. Harmony William MD Status:A DM IN Y [facility] [facility] [id number] Consult Antibiotic Management Pharmacy has been consulted to manage selected antiobiotic: Vancomycin Type of Intervention Type of Consult: New start Suspected Infection Suspected Infection: Skin/Soft tissue Labs Labs: Sodium 140 mmol/L (136-145) 10/17/22 22:30 Potassium 4.0 mmol/L (3.5-5.1) 10/17/22 22:30 Chloride 109 mmol/L (98-107) H 10/17/22 22:30 Carbon Dioxide 26.0 mmol/L (21.0-32.0) 10/17/22 22:30 Anion Gap 5 (5-15) 10/17/22 22:30 BUN 25 mg/dL (7-18) H 10/17/22 22:30 Creatinine 0.93 mg/dL (0.70-1.30) 10/17/22 22:30 Est GFR (MDRD) Af Amer 106 mL/min (>60) 10/17/22 22:30 Est GFR (MDRD) Non-Af 87 mL/min (>60) 10/17/22 22:30 BUN/Creatinine Ratio 26.8 RATIO (10-20) H 10/17/22 22:30 Glucose 80 mg/dL (74-106) 10/17/22 22:30 Dosing Weight Weight used for dosin.1 kg Estimated Creatinine Clearance Estimated Creatinine Clearance: 66 ML/MIN Goal Trough Goal Trough: 15-20 mcg/mL Pharmacy Plan for Drug Dosing Pharmacy Plan for Drug Dosing: Load with vanc 1750mg IV x1 based on the patient's weight, then continue with 750mg IV q12h per [facility] dosing protocol. Will check a trough before the 4th totaldose. Pharmacy Service will continue to monitor and adjust dosing as required. Follow-Up Labs Follow-Up Labs: Trough: Vancomycin Date/Time Labs Ordered Labs to be done on [date and time ordered]: 10/20/22 03:30 10/18/22 1540 <Electronically signed by Eric Ramirez erg> Date _ Eric Benitez 10/19/221712 <Electronically signed by Liv Tobar MD> Cosigner Signature (if applicable): Date Liv Tobar MD CC: ~ Signed [facility] Work Phone: 1(272) 951-436208-28-2023 Consult note Author Aung Benavidez [facility] October 19, 2022 5:12pm Note Date/Time October 19, 2022 5: 12pm [facility] Medical Records Department [address] [place] [address] Consultation 10/19/22 170 MR#: [id number] Acct: [id number] Name: MIKE ADAMS Rep #:[id number] : 1960 62 From: Aung Benavidez DDS PCP: Dr. Harmony William MD Status:A DM IN Location: [place] [id number] Assessment & Plan Assessment/Plan (1) Gingivitis: PLAN: Plan Doubtful this is dental etiology however I concur with the IV antibiotics and fluids. Glad to follow this patient and if any further changes in examination we will be glad to reevaluate. HPI Consult Data Date of Consult: 10/19/22 HPI Narrative Reason for Consultation: Consult for Mike Adams 62-year-old male admitted for left facial swelli HPI Narrative: MIKE ADAMS, is a 62 M who [facility] Medical History (Updated 10/17/22 @ 22:00 by Lesley Yin) Alcohol abuse Bilateral lower extremity edema Blood clotting disorder Blood transfusion without reported diagnosis BPH (benign prostatic hyperplasia) Compression fx, thoracic spine Deep vein thrombosis (DVT) of left lower extremity Depression DVT (deep venous thrombosis) Failure to thrive Femur fracture, left High cholesterol HLD (hyperlipidemia) Hypercoagulable state Hypertension Hypokalemia Hypothyroidism Hypothyroidism Localized edema Multiple falls Nondisplaced fracture of neck of left femur Parkinson disease Parkinson's disease Seizure disorder Seizures Tachycardia Toe pain, left Toe pain, right Home Medications divalproex 250 mg tablet,delayed release 250 mg PO DAILY #30 tabs 09/16/22 [Rx Last Taken Unknown] divalproex 250 mg tablet,delayed release 500 mg (2 x 250 mg) PO QHS #60 tabs 09/16/22 [Rx Last Taken Unknown] rivaroxaban 20 mg tablet 20 mg PO DAILY #30 tabs 09/16/22 [Rx Last Taken Unknown] blood pressure monitor #1 ea 09/23/22 [Rx Last Taken Unknown] propranolol 60 mg capsule,24 hr,extended release 60 mg PO DAILY #90 caps 09/23/22 [Rx Last Taken Unknown] compress.stocking,knee,reg,lrg #2 ea 09/24/22 [Rx Last Taken Unknown] potassium chloride 20 mEq tablet,extended release 20 meq PO BID #60 tabs 09/24/22 [Rx Last Taken Unknown] atorvastatin 40 mg tablet 20 mg (1/2 x 40 mg) PO DAILY cholesterol #45 tabs 10/08/22 [Rx Last Taken Unknown] levetiracetam 1,000 mg tablet 500 mg (1/2 x 1,000 mg) PO BID SEIZURES #90 tabs 10/08/22 [Rx Last Taken Unknown] levothyroxine 50 mcg tablet 50 mcg PO DAILY THYROID #90 tabs 10/08/22 [Rx Last Taken Unknown] mirtazapine 30 mg tablet 15 mg (1/2 x 30 mg) PO DAILY mood #45 tabs 10/08/22 [Rx Last Taken Unknown] tamsulosin 0.4 mg capsule (Flomax) 0.4 mg PO QHS URINE #90 caps 10/08/22 [Rx Last Taken Unknown] topiramate 50 mg tablet 50 mg PO BID #60 tabs 10/08/22 [Rx Last Taken Unknown] atorvastatin 20 mg tablet 20 mg PO DAILY cholesterol 10/17/22 [History Last Taken Unknown] mirtazapine 15 mg tablet 15 mg PO DAILY mood 10/17/22 [History Last Taken Unknown] Allergy/AdvReac Type Severity Reaction Status Date / Time No Known Allergies Allergy Verified 10/08/22 05:21 Family History Mother Breast cancer Father Mouth cancer Brother Parkinson disease Surgical History History of left hip replacement History of orthopedic surgery S/P hip replacement Social History Smoking Status: Current every day smoker tobacco type: smokeless tobacco Smokeless tobacco user: chewing tobacco alcohol intake: never substance use type: does not use what type of physical activity do you participate in: none Physical Exam Const alert and no apparent distress General Appearance: cooperative HEENT head/scalp atraumatic, moist oral mucous membranes, oropharynx normal and gingiva normal HEENT Narrative: Overall the oral cavity is moist no obvious lesions no palpable swellings he does have numerous missing teeth and some teeth are not in good repair. Not appreciating any significant intraoral swelling it is questionable that there is any odontogenic etiology for the swelling. Eyes PERRL and EOMs intact bilaterally Neck no lymphadenopathy and supple Neck Narrative: Did not appreciate any submandibular lymphadenopathy General: trachea midline Lab / Micro Data 10/19/22 06:15 10/19/22 06:15 Labs: Laboratory Results - last 24 hr 10/19/22 06:15: WBC 6.1, RBC 3.59 L, Hgb 10.6 L, Hct 34.0 L, MCV 94.7 H, MCH 29.5, MCHC 31.2 L, RDW Std Deviation 48.4 H, RDW Coeff of Colleen 14.0, Plt Count 126 L, MPV 9.4, Immature Gran % (Auto) 0.500, Neut % (Auto) 45.5 L, Lymph % (Auto) 36.1, Tift % (Auto) 15.7 H, Eos % (Auto) 1.5, Baso % (Auto) 0.7, AbsoluteNeuts (auto) 2.8, Absolute Lymphs (auto) 2.20, Nucleated RBC % 0, Sodium 142, Potassium 3.6, Chloride 113 H, Carbon Dioxide 25.0, Anion Gap 4 L, BUN 22 H, Creatinine 0.83, Estim Creat Clear Calc 74.27, Est GFR (MDRD) Af Amer 121, Est GFR (MDRD) Non-Af 100, BUN/Creatinine Ratio 26.6 H, Glucose 98, Calcium 8.3 L 10/19/22 1712 <Electronically signed by Aung Benavidez DDS> Cosigner Signature (if applicable): CC: Dr. Randall Marie DO; Dr. Omer Castro MD; Dr. Harmony William MD; Dr. Aung Benavidez DDS~ Signed [facility] Work Phone: [phone]) [phone] Progress note Author Liv Tobar [facility] October 19, 2022 1:22pm Note Date/Time October 19, 2022 9: 18am [facility] Medical Records Department [address] [place] [address] Progress Note - Hospitalist 10/19/22 0914 MR#: [id number] Acct: [id number] Name: MIKE ADAMS Rep #:[id number] : 1960 62 From: Liv Tobar MD PCP: Dr. Harmony William MD Status:A DM IN Location: [place] CY440-3 Reason for Visit Reason for Visit: Diagnoses Adult failure to thrive (10/17/22) Subjective Subjective Patient roughly the same today, still eating and drinking well, no breathing complaints Objective Data Objective Data Vital Signs: Vital Signs Temp Pulse Resp BP Pulse Ox O2 Del Method 98.7 F 84 18 97/64 95 Room Air 10/19/22 07:57 10/19/22 07:57 10/19/22 07:57 10/19/22 07:57 10/19/22 08:51 10/19/22 08:51 Oxygen Delivery Method Room Air Weight: 68.13 kg Body Mass Index (BMI) 26.6 Intake & Output: Intake and Output for Last 24 Hours 10/17/22 10/18/22 10/19/22 23:59 23:59 23:59 Intake Total 200 / 200 2955 / 2955 1245 / 1245 Output Total 500 / 1300 800 / 800 Balance 200 / 200 2455 / 1655 445 / 445 Lab / Micro Data 10/19/22 06:15 10/19/22 06:15 Labs: Laboratory Results - last 24 hr 10/18/22 09:15: Total Bilirubin 0.40, Direct Bilirubin 0.14, AST 11 L, ALT 7 L, Alkaline Phosphatase 29 L, Ammonia 46.0 H, Total Protein 6.2 L, Albumin 2.4 L, Globulin 3.8, Valproic Acid 106 H 10/18/22 14:50: MRSA (PCR) Negative 10/18/22 14:55: Lactic Acid 1.5 10/19/22 06:15: WBC 6.1, RBC 3.59 L, Hgb 10.6 L, Hct 34.0 L, MCV 94.7 H, MCH 29.5, MCHC 31.2 L, RDW Std Deviation 48.4 H, RDW Coeff of Colleen 14.0, Plt Count 126 L, MPV 9.4, Immature Gran % (Auto) 0.500, Neut % (Auto) 45.5 L, Lymph % (Auto) 36.1, Tift % (Auto) 15.7 H, Eos % (Auto) 1.5, Baso % (Auto) 0.7, AbsoluteNeuts (auto) 2.8, Absolute Lymphs (auto) 2.20, Nucleated RBC % 0, Sodium 142, Potassium 3.6, Chloride 113 H, Carbon Dioxide 25.0, Anion Gap 4 L, BUN 22 H, Creatinine 0.83, Estim Creat Clear Calc 74.27, Est GFR (MDRD) Af Amer 121, Est GFR (MDRD) Non-Af 100, BUN/Creatinine Ratio 26.6 H, Glucose 98, Calcium 8.3 L Radiography Diagnostic Testing: Radiology Impression Facial/Sinus 10/18/22 11:00 IMPRESSION: 1. Soft tissue swelling and edema on the left side of the left mandibular ramus and angle and with small pocket of air without evidence of drainable abscess. 2. Few nodes on the left side of the neck. 3. Sinus disease. Electronically Signed: Aditya Rawls MD at 13:13 EDT , Soft Tissue Neck CT 10/18/22 11:00 IMPRESSION: 1. Soft tissue swelling and edema on the left side of the left mandibular ramus and angle and with small pocket of air without evidence of drainable abscess. 2. Few nodes on the left side of the neck. 3. Sinus disease. Electronically Signed: Aditya Rawls MD at 13:41 EDT , Physical Exam Narrative General: Alert, no apparent distress HEENT: Left-sided facial swelling primarily over jaw extending back towards ear,very poor dentition with back molars broke off near gums, no purulence expressed, no localized lesion able to be noted, tongue not swelled but does have swelling with full length of the left lower face and left side of lips, no extension toward eyes or scalp, no right-sided facial or mouth involvement or throat involvement whatsoever Eyes: Anicteric Neck: Supple Respiratory: Clear to auscultation bilaterally, normal respiratory effort Cardiovascular: Regular rate and rhythm GI: Soft, nontender, nondistended Extremities: Legs wrapped Musculoskeletal: Moving all extremities Neuro: No overt focal neurological deficits Skin: No drainage mouth Psych: Cooperative Assessment & Plan Assessment/Plan (1) Adult failure to thrive: PLAN: Plan Patient is a 62-year-old male with history of seizure disorder with impaired cognition, poor mobility at baseline, DVT on Xarelto, hypothyroidism, hypertension and BPH who presented to [facility] ED on 10/17/2022 with failure to thrive. #Failure to thrive, chronic debility Patient was previously in a fdc for about a year. Was taken out by caregiver due to perceived poor care. Has not been home for about 6 months to 1year, but caregiver states she is unable to take care of him any longer. Caregiver notes no abrupt decline in function, but rather steady decline over time. Patient ambulates with a walker but ambulates very slowly and has had some minor falls recently. He appears to have underlying cognitive delay, possibly due to seizure disorder as noted below. Was essentially nonverbal with me in the room. Was able to make appropriate eye contact. Appeared quite weak. -Admit to inpatient bed on MedSurg floor. PT/OT/case management consulted. Of note, patient was previously at a fdc in [place] and caregiver would not like him to return there. However, she is hoping for long-term placement. -10/18: PT/OT, case management social work -10/19: Continue supportive care, will need placement #Low blood pressure -TSH within normal limits -Does have slight elevation in BUN, query if there is a component of dehydration, will give fluids and assess for improvement -Continue Augmentin, no other signs or symptoms suggestive of severe infection necessitating IV antibiotics -Continue to hold propranolol -10/18: Given concern for dental infection will switch to IV antibiotics and obtain blood cultures however to verify no other underlying etiology, patient presently asymptomatic -10/19: Started on fluids and midodrine for blood pressure support, will try to titrate down midodrine as tolerated and continue to hold propranolol #Chronic microcytic anemia -12.4 on admission, 10.6 today but also lines dropped and suspect this is dilutional with the fluids, no signs of blood loss, continue to monitor -Can consider FOBT or further work-up if does not stabilize -We will check iron panel, B12, folate #Seizure disorder Home medications of divalproex, Keppra and topiramate. Caregiver states has been taking his as prescribed. He apparently had a seizure about 8 days ago, presented to the ED for that. Brain CT at that time was negative. Labs were unremarkable. Was discharged home. -Continue home seizure medications. -10/18: Given his Depakote use his Depakote level, ammonia, liver panel were checked, ammonia slightly elevated at 46, valproic acid level 106, liver panel unremarkable -10/19: Continue present measures #Poor dentition, concern for oral infection ? Poor dentition noted on exam today. Admission labs pending. Will treat empirically with Augmentin for 5 to 7-day course. -10/18: Exam as above, given the extent of the swelling will obtain CT head and neck to evaluate for any loculations anything that can be drained or for any other warning signs or symptoms and will switch to IV antibiotics, patient denies problems swallowing or breathing and is managing secretions without difficulty, feels about the same if not better than yesterday. We will follow-up CT for further management -10/19: CT head as above, given persistence of the left-sided facial swelling in association with his poor dentition and tooth broke off we will consult oral surgery for input, continue to biotics and monitor cultures #History of DVT ? Continue home Xarelto. #Hyperlipidemia ? Continue home atorvastatin. #Hypothyroidism ? Continue home Synthroid. -TSH 09/23/22 wnl at 1.66 DVT prophylaxis: Xarelto CODE STATUS: Full code, verified. Confirmed with caregiver on admission. Expected disposition: SNF, TBD Total clinical time spent by myself addressing the patient's medical issues, reviewing all the data, and collaborating with patient's care team: 52 minutes. Charges/Coding Visit Charges Inpatient E&M: 54358 Subs Hosp L3 10/19/22 1322 <Electronically signed by Liv Tobar MD> Cosigner Signature (if applicable): CC: ~ Signed [facility] Work Phone: 1(296) 702-624708-27-2023 Progress note Author Liv Tobar [facility] October 18, 2022 4:34pm Note Date/Time October 18, 2022 4: 18pm [facility] Medical Records Department [address] [place] [address] Progress Note - Hospitalist 10/18/22 1618 MR#: [id number] Acct: [id number] Name: MIKE ADAMS Rep #:[id number] : 1960 62 From: Liv Tobar MD PCP: Dr. Harmony William MD Status:A DM IN Location: [facility] [id number] findings and also reevaluated patient. Patient resting comfortably,on exam patient is not having any tenderness when palpating over face, exam overall unchanged and he is eating well and has no difficulty swallowing or breathing and reports that his face is feeling better than it did earlier. Given the extent of the swelling will consult ENT and monitor clinically. Continue on IV antibiotics pending cultures and clinical response. Patient doesstill have soft blood pressure, looking back it appears he does run low, likely multifactorial but patient completely asymptomatic, will start on fluids, labs: Lactic within normal limits do not believe patient is septic 10/18/22 1634 <Electronically signed by Liv Tobar MD> Cosigner Signature (if applicable): CC: ~ Signed [facility] Work Phone: 1(472) 290-826208-27-2023 Progress note Author Liv Tobar [facility] October 18, 2022 11:10am Note Date/Time October 18, 2022 8: 48am [facility] Medical Records Department [address] [place] [id number] Progress Note - Hospitalist 10/18/22 0841 MR#: [id number] Acct: [id number] Name: MIKE ADAMS Rep #:[id number] : 1960 62 From: Liv Tobar MD PCP: Dr. Harmony William MD Status:A DM IN Location: [place] [id number] Reason for Visit Reason for Visit: Diagnoses Adult failure to thrive (10/17/22) Subjective Subjective Patient reports he is feeling better than he was, still has left-sided facial swelling which he reports has been there for days and is roughly unchanged Objective Data Objective Data Vital Signs: Vital Signs Temp Pulse Resp BP Pulse Ox O2 Del Method 98 F 66 16 76/55 L 97 Room Air 10/18/22 07:36 10/18/22 07:36 10/18/22 07:36 10/18/22 08:01 10/18/22 07:36 10/18/22 07:36 Oxygen Delivery Method Room Air Weight: 68.13 kg Body Mass Index (BMI) 26.6 Intake & Output: Intake and Output for Last 24 Hours 10/16/22 10/17/22 10/18/22 23:59 23:59 23:59 Intake Total 200 / 200 1000 / 1000 Output Total 500 / 500 Balance 200 / 200 500 / 500 Lab / Micro Data 10/17/22 22:30 10/17/22 22:30 Labs: Laboratory Results - last 24 hr 10/17/22 22:30: WBC 7.1, RBC 4.20 L, Hgb 12.4 L, Hct 39.9 L, MCV 95.0 H, MCH 29.5, MCHC 31.1 L, RDW Std Deviation 48.3 H, RDW Coeff of Colleen 13.9, Plt Count 159, MPV 9.3, Immature Gran % (Auto) 0.600, Neut % (Auto) 60.1, Lymph % (Auto) 25.7, Tift % (Auto) 11.1 H, Eos % (Auto) 1.7, Baso % (Auto) 0.8, Absolute Neuts (auto) 4.3, Absolute Lymphs (auto) 1.83, Nucleated RBC % 0, Sodium 140, Potassium 4.0, Chloride 109 H, Carbon Dioxide 26.0, Anion Gap 5, BUN 25 H, Creatinine 0.93, Estim Creat Clear Calc 66.28, Est GFR (MDRD) Af Amer 106, Est GFR (MDRD) Non-Af 87, BUN/Creatinine Ratio 26.8 H, Glucose 80, Calcium 9.3 Physical Exam Narrative General: Alert, no apparent distress HEENT: Left-sided facial swelling primarily over jaw extending back towards ear,very poor dentition with back molars broke off near gums, no purulence expressed, no localized lesion able to be noted, tongue not swelled but does haveswelling with full length of the left lower face, no extension toward eyes or scalp, cannot appreciate lymphadenopathy, no right-sided facial or mouth involvement or throat involvement whatsoever Eyes: Anicteric, normal conjunctiva, extraocular movements grossly intact Neck: Supple Respiratory: Clear to auscultation bilaterally, normal respiratory effort Cardiovascular: Regular rate and rhythm GI: Soft, nontender, nondistended Extremities: No edema Musculoskeletal: Moving all extremities Neuro: No overt focal neurological deficits Skin: No drainage mouth Psych: Cooperative Assessment & Plan Assessment/Plan (1) Adult failure to thrive: PLAN: Plan Patient is a 62-year-old male with history of seizure disorder with impaired cognition, poor mobility at baseline, DVT on Xarelto, hypothyroidism, hypertension and BPH who presented to [facility] ED on 10/17/2022with failure to thrive. #Failure to thrive, chronic debility Patient was previously in a fdc for about a year. Was taken out by caregiver due to perceived poor care. Has not been home for about 6 months to 1year, but caregiver states she is unable to take care of him any longer. Caregiver notes no abrupt decline in function, but rather steady decline over time. Patient ambulates with a walker but ambulates very slowly and has had some minor falls recently. He appears to have underlying cognitive delay, possibly due to seizure disorder as noted below. Was essentially nonverbal withme in the room. Was able to make appropriate eye contact. Appeared quite weak. -Admit to inpatient bed on MedSurg floor. PT/OT/case management consulted. Of note, patient was previously at a fdc in [place] and caregiver would not like him to return there. However, she is hoping for long-term placement. -10/18: PT/OT, case management social work #Low blood pressure -TSH within normal limits -Does have slight elevation in BUN, query if there is a component of dehydration, will give fluids and assess for improvement -Continue Augmentin, no other signs or symptoms suggestive of severe infection necessitating IV antibiotics -Continue to hold propranolol -10/18: Given concern for dental infection will switch to IV antibiotics and obtain blood cultures however to verify no other underlying etiology, patient presently asymptomatic #Seizure disorder Home medications of divalproex, Keppra and topiramate. Caregiver states has been taking his as prescribed. He apparently had a seizure about 8 days ago, presented to the ED for that. Brain CT at that time was negative. Labs were unremarkable. Was discharged home. -Continue home seizure medications. -10/18: Given his Depakote use his Depakote level, ammonia, liver panel were checked, ammonia slightly elevated at 46, valproic acid level 106, liver panel unremarkable #Poor dentition, concern for oral infection ? Poor dentition noted on exam today. Admission labs pending. Will treat empirically with Augmentin for 5 to 7-day course. -10/18: Exam as above, given the extent of the swelling will obtain CT head and neck to evaluate for any loculations anything that can be drained or for any other warning signs or symptoms and will switch to IV antibiotics, patient denies problems swallowing or breathing and is managing secretions without difficulty, feels about the same if not better than yesterday. We will follow-up CT for further management #History of DVT ? Continue home Xarelto. #Hyperlipidemia ? Continue home atorvastatin. #Hypothyroidism ? Continue home Synthroid. -TSH 09/23/22 wnl at 1.66 DVT prophylaxis: Xarelto CODE STATUS: Full code, verified. Confirmed with caregiver on admission. Expected disposition: SNF, TBD Total clinical time spent by myself addressing the patient's medical issues, reviewing all the data, and collaborating with patient's care team: 52 minutes. Charges/Coding Visit Charges Inpatient E&M: 78370 Subs Hosp L3 10/18/22 1110 <Electronically signed by Liv Tobar MD> Cosigner Signature (if applicable): CC: ~ Signed [facility] Work Phone: 1(501) 307-465008-26-2023 History and physical note Author Randall Marie [facility] October 17, 2022 9:13pm Note Date/Time October 17, 2022 7: 17pm [facility] Medical Records Department [address] [place] [address] H&P Exam - Hospitalist 10/17/22 1914 MR#: [id number] Acct: [id number] Name: MIKE ADAMS Rep #:[id number] : 1960 62 From: Randall gottlieb DO PCP: Dr. Harmony William MD Status:A DM IN Location: [facility] [id number] HPI - General General Date of Admission: 10/17/22 Date of Service: 10/17/22 Chief Complaint: Failure to thrive, debility HPI Narrative MIKE ADAMS is a 62 M is a 62-year-old male with history of seizure disorder with impaired cognition, poor mobility at baseline, DVT on Xarelto, hypothyroidism, hypertension and BPH who presented to [facility] on 10/17/2022 with failure to thrive. Patient seen at bedside, caregiver present. Patient sitting in wheelchair by side of bed. Leaned over at the chest looking down to the ground for most of my interview. Did make eye contacton questioning and appeared to understand what I was saying, but had essentiallyno verbal responses. Did not appear to be in any acute distress. Most of the history was obtained from the caregiver, who is patient's family friend. Patient previously lived in a fdc for about 1 year. However, caregiverwas upset by the care he was receiving and brought him back to her house. Patient has now been at her house for between 6 months to 1 year. He has continued to have cognitive decline as well as physical slowing over that time. She works full-time and is unable to take care of him well at home. She denies any acute changes for patient. States he is able to move slowly around the homewith his walker. Patient does wear depends as he is not able to get to the bathroom easily. Vitals are stable on admission. All labs are currently pending. No imaging wasdone in the ED. [facility] Medical History Bilateral lower extremity edema Blood clotting disorder Blood transfusion without reported diagnosis BPH (benign prostatic hyperplasia) Compression fx, thoracic spine Deep vein thrombosis (DVT) of left lower extremity Failure to thrive Femur fracture, left HLD (hyperlipidemia) Hypercoagulable state Hypertension Hypokalemia Hypothyroidism Localized edema Multiple falls Nondisplaced fracture of neck of left femur Parkinson disease Seizure disorder Tachycardia Toe pain, left Toe pain, right Home Medications divalproex 250 mg tablet,delayed release 250 mg PO DAILY #30 tabs 09/16/22 [Rx Last Taken Unknown] divalproex 250 mg tablet,delayed release 500 mg (2 x 250 mg) PO QHS #60 tabs 09/16/22 [Rx Last Taken Unknown] rivaroxaban 20 mg tablet 20 mg PO DAILY #30 tabs 09/16/22 [Rx Last Taken Unknown] blood pressure monitor #1 ea 09/23/22 [Rx Last Taken Unknown] propranolol 60 mg capsule,24 hr,extended release 60 mg PO DAILY #90 caps 09/23/22 [Rx Last Taken Unknown] compress.stocking,knee,reg,lrg #2 ea 09/24/22 [Rx Last Taken Unknown] potassium chloride 20 mEq tablet,extended release 20 meq PO BID #60 tabs 09/24/22 [Rx Last Taken Unknown] atorvastatin 40 mg tablet 20 mg (1/2 x 40 mg) PO DAILY cholesterol #45 tabs 10/08/22 [Rx Last Taken Unknown] levetiracetam 1,000 mg tablet 500 mg (1/2 x 1,000 mg) PO BID SEIZURES #90 tabs 10/08/22 [Rx Last Taken Unknown] levothyroxine 50 mcg tablet 50 mcg PO DAILY THYROID #90 tabs 10/08/22 [Rx Last Taken Unknown] mirtazapine 30 mg tablet 15 mg (1/2 x 30 mg) PO DAILY mood #45 tabs 10/08/22 [Rx Last Taken Unknown] tamsulosin 0.4 mg capsule (Flomax) 0.4 mg PO QHS URINE #90 caps 10/08/22 [Rx Last Taken Unknown] topiramate 50 mg tablet 50 mg PO BID #60 tabs 10/08/22 [Rx Last Taken Unknown] Allergy/AdvReac Type Severity Reaction Status Date / Time No Known Allergies Allergy Verified 10/08/22 05:21 Family History Mother Breast cancer Father Mouth cancer Brother Parkinson disease Surgical History History of left hip replacement History of orthopedic surgery S/P hip replacement Social History Smoking Status: Current every day smoker tobacco type: smokeless tobacco Smokeless tobacco user: chewing tobacco alcohol intake: never substance use type: does not use what type of physical activity do you participate in: none ROS Review of Systems ROS Unobtainable: due to mental condition Vital Signs Vital Signs Vital Signs: 10/17/22 18:43 Temperature 98.2 F Temperature Source Temporal Pulse Rate 84 Respiratory Rate 16 Blood Pressure 95/65 Blood Pressure Mean 75 Pulse Ox 96 Oxygen Delivery Method Room Air Physical Exam Const alert Constitutional Narrative: Essentially nonverbal, sitting in wheelchair at side of bed, making appropriate eye contact, does not appear to be in acute distress. General Appearance: cooperative HEENT normocephalic, head/scalp atraumatic, hearing grossly normal bilaterally and nasal mucous membranes and turbinates normal HEENT Narrative: Has notably very poor dentition with concern for possible dental infection. Eyes PERRL, EOMs intact bilaterally and conjunctivae normal Neck full ROM, no lymphadenopathy and supple Lymph Lymphatic: no lymphadenopathy noted Chest inspection of chest normal Resp normal respiratory effort, normal air movement, no use of accessory muscles and clear to auscultation bilaterally Cardio regular rate, regular rhythm, no murmurs and peripheral pulses 2+ throughout GI normal to inspection, nondistended, normoactive bowel sounds, soft to palpation,non-tender and non-distended Back/Spine normal ROM Extremity normal to inspection, full ROM and no pedal edema Skin no rashes or lesions noted Assessment & Plan Assessment/Plan (1) Adult failure to thrive: PLAN: Plan Patient is a 62-year-old male with history of seizure disorder with impaired cognition, poor mobility at baseline, DVT on Xarelto, hypothyroidism, hypertension and BPH who presented to [facility] ED on 10/17/2022with failure to thrive. 1. Failure to thrive, chronic debility Patient was previously in a fdc for about a year. Was taken out by caregiver due to perceived poor care. Has not been home for about 6 months to 1year, but caregiver states she is unable to take care of him any longer. Caregiver notes no abrupt decline in function, but rather steady decline over time. Patient ambulates with a walker but ambulates very slowly and has had some minor falls recently. He appears to have underlying cognitive delay, possibly due to seizure disorder as noted below. Was essentially nonverbal withme in the room. Was able to make appropriate eye contact. Appeared quite weak. -Admit to inpatient bed on MedSurg floor. PT/OT/case management consulted. Of note, patient was previously at a fdc in [place] and caregiver would not like him to return there. However, she is hoping for long-term placement. 2. Seizure disorder Home medications of divalproex, Keppra and topiramate. Caregiver states has been taking his as prescribed. He apparently had a seizure about 8 days ago, presented to the ED for that. Brain CT at that time was negative. Labs were unremarkable. Was discharged home. -Continue home seizure medications. 3. Poor dentition, concern for oral infection ? Poor dentition noted on exam today. Admission labs pending. Will treat empirically with Augmentin for 5 to 7-day course. 4. History of DVT ? Continue home Xarelto. 5. Hyperlipidemia ? Continue home atorvastatin. 6. Hypothyroidism ? Continue home Synthroid. DVT prophylaxis: Xarelto CODE STATUS: Full code, verified. Confirmed with caregiver on admission. Expected disposition: SNF, TBD Total clinical time spent by myself addressing the patient's medical issues, reviewing all the data, and collaborating with patient's care team: 55 minutes. Charges/Coding Visit Charges Inpatient E&M: 31041 Init Hosp L2 10/17/222112 <Electronically signed by Randall Marie DO> Cosigner Signature (if applicable): CC: Dr. Randall Marie DO; Dr. Harmony William MD~ Signed [facility] Work Phone: 1(951) 262-423608-26-2023 Discharge summary Author Julio C Turpin [facility] October 17, 2022 7:52pm Note Date/Time October 17, 2022 7: 12pm [facility] Medical Records Department [address] [place] [address] Emergency Department Summary 10/17/22 MR#: [id number] Acct: [id number] Name: MIKE ADAMS Rep #:[id number] : 1960 62 From: Julio C Turpin MD PCP: Dr. Harmony William MD Status:R EG ER Location: ED HPI History of Present Illness Chief Complaint: Other, Pain/Inj Detail of Chief Complaint: Left facial swelling. Dental discomfort. jail placement. Informant: patient and friend Onset/Context/Timing Onset: Days Context: Gradual Onset Timing: Continuous Current Severity: Mild Maximum Severity: Mild Narrative Narrative: 62-year-old male has a history of seizure disorder, chronic lower extremity edema, clotting disorder prior DVT on blood thinner. Patient was seen in the emergency department about 8 days ago for a seizure. Had labs at that time are unremarkable. The last 2 days he has developed left facial swelling and some dental pain. He previously was in a fdc. Family friend took him out of the fdc 6 months ago to a year and she does not feel that she is capable of caring for him. He is not ambulatory and she does not have enough help. She spoke with her primary care physician and when to come to the emergency department to be admitted for fdc placement. Prior similar symptoms: Yes Recent Illness/Hospitalization: No PFSH PFSH Medical History Bilateral lower extremity edema Blood clotting disorder Blood transfusion without reported diagnosis BPH (benign prostatic hyperplasia) Compression fx, thoracic spine Deep vein thrombosis (DVT) of left lower extremity Failure to thrive Femur fracture, left HLD (hyperlipidemia) Hypercoagulable state Hypertension Hypokalemia Hypothyroidism Localized edema Multiple falls Nondisplaced fracture of neck of left femur Parkinson disease Seizure disorder Tachycardia Toe pain, left Toe pain, right Home Medications divalproex 250 mg tablet,delayed release 250 mg PO DAILY #30 tabs 09/16/22 [Rx Last Taken Unknown] divalproex 250 mg tablet,delayed release 500 mg (2 x 250 mg) PO QHS #60 tabs 09/16/22 [Rx Last Taken Unknown] rivaroxaban 20 mg tablet 20 mg PO DAILY #30 tabs 09/16/22 [Rx Last Taken Unknown] blood pressure monitor #1 ea 09/23/22 [Rx Last Taken Unknown] propranolol 60 mg capsule,24 hr,extended release 60 mg PO DAILY #90 caps 09/23/22 [Rx Last Taken Unknown] compress.stocking,knee,reg,lrg #2 ea 09/24/22 [Rx Last Taken Unknown] potassium chloride 20 mEq tablet,extended release 20 meq PO BID #60 tabs 09/24/22 [Rx Last Taken Unknown] atorvastatin 40 mg tablet 20 mg (1/2 x 40 mg) PO DAILY cholesterol #45 tabs 10/08/22 [Rx Last Taken Unknown] levetiracetam 1,000 mg tablet 500 mg (1/2 x 1,000 mg) PO BID SEIZURES #90 tabs 10/08/22 [Rx Last Taken Unknown] levothyroxine 50 mcg tablet 50 mcg PO DAILY THYROID #90 tabs 10/08/22 [Rx Last Taken Unknown] mirtazapine 30 mg tablet 15 mg (1/2 x 30 mg) PO DAILY mood #45 tabs 10/08/22 [Rx Last Taken Unknown] tamsulosin 0.4 mg capsule (Flomax) 0.4 mg PO QHS URINE #90 caps 10/08/22 [Rx Last Taken Unknown] topiramate 50 mg tablet 50 mg PO BID #60 tabs 10/08/22 [Rx Last Taken Unknown] Allergy/AdvReac Type Severity Reaction Status Date / Time No Known Allergies Allergy Verified 10/08/22 05:21 Family History Mother Breast cancer Father Mouth cancer Brother Parkinson disease Surgical History History of left hip replacement History of orthopedic surgery S/P hip replacement Social History Smoking Status: Current every day smoker tobacco type: smokeless tobacco Smokeless tobacco user: chewing tobacco alcohol intake: never substance use type: does not use what type of physical activity do you participate in: none ROS ROS ED ROS Narrative Denies recent illness. Left facial swelling for 2 days dental pain. Review of Systems ROS Unobtainable: Denies due to encephalopathy Constitutional Constitutional ED: Denies chills or fever(s) Eyes Eyes: Denies blurry vision ENT ENT ED: Denies ear pain Cardiovascular Cardiovascular: Denies chest pain Respiratory/Chest Respiratory/Chest: Denies cough or dyspnea Gastrointestinal Gastrointestinal: Denies abdominal pain Genitourinary Genitourinary ED: Denies dysuria or hematuria Musculoskeletal Musculoskeletal: Denies arthralgias or back pain Integumentary Denies abscess or Abrasions Neurologic Neurologic: Denies headache(s) Psychiatric Psychiatric: Denies anxiety or depression Endocrine Endocrinology: Denies cold intolerance Hematologic/Lymphatic Hematologic/Lymphatic: Reports none Allergic/Immunologic Allergic/Immunologic ED: Reports mouth swelling; Denies tongue swelling or urticaria EXAM Physical Exam Narrative Exam Narrative: 62-year-old male vital signs are stable afebrile. He does not look septic toxic. He is in no distress. Initial blood pressure 95/65. H EENT exam mild swelling of his lower lip. Very poor dentition. Multiple missing teeth. Gingivitis. No abscess. Mild left facial and jaw swelling. Pupils round reactive light extra motions are intact. Neck nontender no JVD no lymphadenopathy. Lungs clear to auscultation bilaterally. Heart regular rhythm. Abdomen soft nontender. 1+ pitting edema both lower extremities which ischronic. Bilateral lower extremity weakness which is chronic. Neurologically is awake and alert. Answering questions and following commands. Const Vital Signs: 10/17/22 18:43 Temperature 98.2 F Temperature Source Temporal Pulse Rate 84 Respiratory Rate 16 Blood Pressure 95/65 Blood Pressure Mean 75 Pulse Ox 96 Oxygen Delivery Method Room Air Positive well nourished and well developed; Negative for obese, cachectic, contractures or unkempt General Appearance ED: well developed and NAD; Negative for unkempt, cachectic, contractures, cyanotic, diaphoretic or pallor Nutritional Appearance: Negative for cachectic or obese HEENT Reports moist mucous membranes HEENT Narrative: Very poor dentition. Gingivitis. No obvious abscess. Gingival swelling. Leftfacial swelling. Mild lip swelling. Negative for trauma or tenderness Eyes PERRL and EOMs intact bilaterally General Eye ED: Negative for pale conjunctiva or scleral icterus Neck no lymphadenopathy, supple and no JVD General: Negative for tenderness Lymph Lymphatic: Negative for other Chest Wall inspection of chest normal and palpation of chest normal Chest: Negative for other Resp normal respiratory effort and clear to auscultation bilaterally Effort and Inspection: Negative for retractions Auscultation: Negative for rales, rhonchi or wheezes Cardio regular rate, regular rhythm, S1 normal heart sound, S2 normal heart sound and no murmurs Palpation: Negative for palpable S3 or palpable S4 Rate: Negative for bradycardia GI normal to inspection, nondistended, normoactive bowel sounds, non-tender and no masses Inspection: Negative for abdominal distention Auscultation: normoactive bowel sounds Palpation: soft; Negative for tender or guarding Back/Spine no CVA tenderness General Back: Negative for CVA tenderness Cervical Spine: Negative for cervical spine tenderness Thoracic Spine / Upper Back: Negative for thoracic spinal tenderness Lumbar Spine / Lower Back: Negative for lumbar spinal tenderness Extremity Negative for normal to inspection Extremity Narrative: By lower extremity chronic General Extremety ED: Yes edema General Extremity: edema Neuro Sensorium / Orientation: alert Motor Exam: strength 5/5 throughout Psych mental status grossly normal Appearance: Negative for unkempt Attitude: No agitated Mood & Affect: Negative for depressed, anxious or tearful Skin no rashes or lesions noted and no wounds General Skin Exam: Negative for jaundice or pallor Lesions: No lesion noted Rashes: No rashes noted Trauma: Negative for abrasion Wounds: Negative for wounds noted MDM MDM MDM Narrative Medical decision making narrative: 62-year-old male on chronic anticoagulation for blood clots and clotting disorder, chronic anemia and seizures. Was seen here 8 days ago had unremarkable labs. He has a dental infection with swelling of his gums and left jaw. He will be started on Pen-Vee K for that. He has a caregiver with him that is asked in a be admitted for fdc placement. I already spoke to the hospitalist he will be admitted for fdc placement. History & Record Review Discussion w/independent historian: Patient and Friend Additional record(s) reviewed:: Prior inpatient record, Prior outpatient record,Prior ED visit and Prior labs Discharge Plan Triage Chief Complaint: Other, Pain/Inj ED Provider: Julio C Turpin Dx/Rx/DC Orders Clinical Impression: History of blood clotting disorder, History of seizure, Chronic anticoagulation, Gingivitis, Adult failure to thrive Prescriptions: No Action (DME) blood pressure monitor Kit See Rx Instructions .MEDSUPPLY Qty: 1 0RF Rx Instructions: Check blood pressure daily for hypertension I10 propranolol 60 mg capsule,extended release 24 hr 60 mg PO DAILY Qty: 90 3RF divalproex 250 mg tablet,delayed release (DR/EC) 250 mg PO DAILY Qty: 30 4RF divalproex 250 mg tablet,delayed release (DR/EC) 500 mg PO QHS Qty: 60 4RF rivaroxaban 20 mg tablet 20 mg PO DAILY Qty: 30 4RF Rx Instructions: TAKE 1 TABLET BY MOUTH DAILY potassium chloride 20 mEq tablet extended release 20 meq PO BID Qty: 60 1RF (DME) compress.stocking,knee,reg,lrg Misc See Rx Instructions .MEDSUPPLY Qty: 2 1RF Rx Instructions: wear daily for venous insufficiency 20-30 mmHg atorvastatin 40 mg tablet 20 mg PO DAILY Qty: 45 0RF levetiracetam 1,000 mg tablet 500 mg PO BID Qty: 90 0RF levothyroxine 50 mcg tablet 50 mcg PO DAILY Qty: 90 0RF mirtazapine 30 mg tablet 15 mg PO DAILY Qty: 45 0RF tamsulosin [Flomax] 0.4 mg capsule 0.4 mg PO QHS Qty: 90 0RF topiramate 50 mg tablet 50 mg PO BID Qty: 60 0RF Primary Care Provider: Harmony William Referrals: Harmony William MD [Primary Care Provider] - Disposition Disposition: Acute Care Hospital [facility] What to do if you have Problems For any increased pain, shortness of breath, bleeding, nausea or vomiting, chestpain, or any unexpected problems, contact your Primary Care Provider. Call Barcoding Registry ([phone]) or report to the closest Emergency Room. Call 911 if necessary. 10/17/221951 <Electronically signed by Julio C Turpin MD> Cosigner Signature (if applicable): CC: Dr. Harmony William MD ~ Signed [facility] Work Phone: [phone] 654-961808-26-2023 Discharge summary Author Julio C Turpin [facility] October 17, 2022 7:52pm Note Date/Time October 17, 2022 7: 12pm [facility] Medical Records Department [address] [place] [address] Emergency Department Summary 10/17/22 MR#: [id number] Acct: [id number] Name: MIKE ADAMS Rep #:[id number] : 1960 62 From: Julio C Turpin MD PCP: Dr. Harmony William MD Status:R EG ER Location: ED HPI History of Present Illness Chief Complaint: Other, Pain/Inj Detail of Chief Complaint: Left facial swelling. Dental discomfort. jail placement. Informant: patient and friend Onset/Context/Timing Onset: Days Context: Gradual Onset Timing: Continuous Current Severity: Mild Maximum Severity: Mild Narrative Narrative: 62-year-old male has a history of seizure disorder, chronic lower extremity edema, clotting disorder prior DVT on blood thinner. Patient was seen in the emergency department about 8 days ago for a seizure. Had labs at that time are unremarkable. The last 2 days he has developed left facial swelling and some dental pain. He previously was in a fdc. Family friend took him out of the fdc 6 months ago to a year and she does not feel that she is capable of caring for him. He is not ambulatory and she does not have enough help. She spoke with her primary care physician and when to come to the emergency department to be admitted for fdc placement. Prior similar symptoms: Yes Recent Illness/Hospitalization: No PFSH PFSH Medical History Bilateral lower extremity edema Blood clotting disorder Blood transfusion without reported diagnosis BPH (benign prostatic hyperplasia) Compression fx, thoracic spine Deep vein thrombosis (DVT) of left lower extremity Failure to thrive Femur fracture, left HLD (hyperlipidemia) Hypercoagulable state Hypertension Hypokalemia Hypothyroidism Localized edema Multiple falls Nondisplaced fracture of neck of left femur Parkinson disease Seizure disorder Tachycardia Toe pain, left Toe pain, right Home Medications divalproex 250 mg tablet,delayed release 250 mg PO DAILY #30 tabs 09/16/22 [Rx Last Taken Unknown] divalproex 250 mg tablet,delayed release 500 mg (2 x 250 mg) PO QHS #60 tabs 09/16/22 [Rx Last Taken Unknown] rivaroxaban 20 mg tablet 20 mg PO DAILY #30 tabs 09/16/22 [Rx Last Taken Unknown] blood pressure monitor #1 ea 09/23/22 [Rx Last Taken Unknown] propranolol 60 mg capsule,24 hr,extended release 60 mg PO DAILY #90 caps 09/23/22 [Rx Last Taken Unknown] compress.stocking,knee,reg,lrg #2 ea 09/24/22 [Rx Last Taken Unknown] potassium chloride 20 mEq tablet,extended release 20 meq PO BID #60 tabs 09/24/22 [Rx Last Taken Unknown] atorvastatin 40 mg tablet 20 mg (1/2 x 40 mg) PO DAILY cholesterol #45 tabs 10/08/22 [Rx Last Taken Unknown] levetiracetam 1,000 mg tablet 500 mg (1/2 x 1,000 mg) PO BID SEIZURES #90 tabs 10/08/22 [Rx Last Taken Unknown] levothyroxine 50 mcg tablet 50 mcg PO DAILY THYROID #90 tabs 10/08/22 [Rx Last Taken Unknown] mirtazapine 30 mg tablet 15 mg (1/2 x 30 mg) PO DAILY mood #45 tabs 10/08/22 [Rx Last Taken Unknown] tamsulosin 0.4 mg capsule (Flomax) 0.4 mg PO QHS URINE #90 caps 10/08/22 [Rx Last Taken Unknown] topiramate 50 mg tablet 50 mg PO BID #60 tabs 10/08/22 [Rx Last Taken Unknown] Allergy/AdvReac Type Severity Reaction Status Date / Time No Known Allergies Allergy Verified 10/08/22 05:21 Family History Mother Breast cancer Father Mouth cancer Brother Parkinson disease Surgical History History of left hip replacement History of orthopedic surgery S/P hip replacement Social History Smoking Status: Current every day smoker tobacco type: smokeless tobacco Smokeless tobacco user: chewing tobacco alcohol intake: never substance use type: does not use what type of physical activity do you participate in: none ROS ROS ED ROS Narrative Denies recent illness. Left facial swelling for 2 days dental pain. Review of Systems ROS Unobtainable: Denies due to encephalopathy Constitutional Constitutional ED: Denies chills or fever(s) Eyes Eyes: Denies blurry vision ENT ENT ED: Denies ear pain Cardiovascular Cardiovascular: Denies chest pain Respiratory/Chest Respiratory/Chest: Denies cough or dyspnea Gastrointestinal Gastrointestinal: Denies abdominal pain Genitourinary Genitourinary ED: Denies dysuria or hematuria Musculoskeletal Musculoskeletal: Denies arthralgias or back pain Integumentary Denies abscess or Abrasions Neurologic Neurologic: Denies headache(s) Psychiatric Psychiatric: Denies anxiety or depression Endocrine Endocrinology: Denies cold intolerance Hematologic/Lymphatic Hematologic/Lymphatic: Reports none Allergic/Immunologic Allergic/Immunologic ED: Reports mouth swelling; Denies tongue swelling or urticaria EXAM Physical Exam Narrative Exam Narrative: 62-year-old male vital signs are stable afebrile. He does not look septic toxic. He is in no distress. Initial blood pressure 95/65. H EENT exam mild swelling of his lower lip. Very poor dentition. Multiple missing teeth. Gingivitis. No abscess. Mild left facial and jaw swelling. Pupils round reactive light extra motions are intact. Neck nontender no JVD no lymphadenopathy. Lungs clear to auscultation bilaterally. Heart regular rhythm. Abdomen soft nontender. 1+ pitting edema both lower extremities which ischronic. Bilateral lower extremity weakness which is chronic. Neurologically is awake and alert. Answering questions and following commands. Const Vital Signs: 10/17/22 18:43 Temperature 98.2 F Temperature Source Temporal Pulse Rate 84 Respiratory Rate 16 Blood Pressure 95/65 Blood Pressure Mean 75 Pulse Ox 96 Oxygen Delivery Method Room Air Positive well nourished and well developed; Negative for obese, cachectic, contractures or unkempt General Appearance ED: well developed and NAD; Negative for unkempt, cachectic, contractures, cyanotic, diaphoretic or pallor Nutritional Appearance: Negative for cachectic or obese HEENT Reports moist mucous membranes HEENT Narrative: Very poor dentition. Gingivitis. No obvious abscess. Gingival swelling. Leftfacial swelling. Mild lip swelling. Negative for trauma or tenderness Eyes PERRL and EOMs intact bilaterally General Eye ED: Negative for pale conjunctiva or scleral icterus Neck no lymphadenopathy, supple and no JVD General: Negative for tenderness Lymph Lymphatic: Negative for other Chest Wall inspection of chest normal and palpation of chest normal Chest: Negative for other Resp normal respiratory effort and clear to auscultation bilaterally Effort and Inspection: Negative for retractions Auscultation: Negative for rales, rhonchi or wheezes Cardio regular rate, regular rhythm, S1 normal heart sound, S2 normal heart sound and no murmurs Palpation: Negative for palpable S3 or palpable S4 Rate: Negative for bradycardia GI normal to inspection, nondistended, normoactive bowel sounds, non-tender and no masses Inspection: Negative for abdominal distention Auscultation: normoactive bowel sounds Palpation: soft; Negative for tender or guarding Back/Spine no CVA tenderness General Back: Negative for CVA tenderness Cervical Spine: Negative for cervical spine tenderness Thoracic Spine / Upper Back: Negative for thoracic spinal tenderness Lumbar Spine / Lower Back: Negative for lumbar spinal tenderness Extremity Negative for normal to inspection Extremity Narrative: By lower extremity chronic General Extremety ED: Yes edema General Extremity: edema Neuro Sensorium / Orientation: alert Motor Exam: strength 5/5 throughout Psych mental status grossly normal Appearance: Negative for unkempt Attitude: No agitated Mood & Affect: Negative for depressed, anxious or tearful Skin no rashes or lesions noted and no wounds General Skin Exam: Negative for jaundice or pallor Lesions: No lesion noted Rashes: No rashes noted Trauma: Negative for abrasion Wounds: Negative for wounds noted MDM MDM MDM Narrative Medical decision making narrative: 62-year-old male on chronic anticoagulation for blood clots and clotting disorder, chronic anemia and seizures. Was seen here 8 days ago had unremarkable labs. He has a dental infection with swelling of his gums and left jaw. He will be started on Pen-Vee K for that. He has a caregiver with him that is asked in a be admitted for fdc placement. I already spoke to the hospitalist he will be admitted for fdc placement. History & Record Review Discussion w/independent historian: Patient and Friend Additional record(s) reviewed:: Prior inpatient record, Prior outpatient record,Prior ED visit and Prior labs Discharge Plan Triage Chief Complaint: Other, Pain/Inj ED Provider: Julio C Turpin Dx/Rx/DC Orders Clinical Impression: History of blood clotting disorder, History of seizure, Chronic anticoagulation, Gingivitis, Adult failure to thrive Prescriptions: No Action (DME) blood pressure monitor Kit See Rx Instructions .MEDSUPPLY Qty: 1 0RF Rx Instructions: Check blood pressure daily for hypertension I10 propranolol 60 mg capsule,extended release 24 hr 60 mg PO DAILY Qty: 90 3RF divalproex 250 mg tablet,delayed release (DR/EC) 250 mg PO DAILY Qty: 30 4RF divalproex 250 mg tablet,delayed release (DR/EC) 500 mg PO QHS Qty: 60 4RF rivaroxaban 20 mg tablet 20 mg PO DAILY Qty: 30 4RF Rx Instructions: TAKE 1 TABLET BY MOUTH DAILY potassium chloride 20 mEq tablet extended release 20 meq PO BID Qty: 60 1RF (DME) compress.stocking,knee,reg,lrg Misc See Rx Instructions .MEDSUPPLY Qty: 2 1RF Rx Instructions: wear daily for venous insufficiency 20-30 mmHg atorvastatin 40 mg tablet 20 mg PO DAILY Qty: 45 0RF levetiracetam 1,000 mg tablet 500 mg PO BID Qty: 90 0RF levothyroxine 50 mcg tablet 50 mcg PO DAILY Qty: 90 0RF mirtazapine 30 mg tablet 15 mg PO DAILY Qty: 45 0RF tamsulosin [Flomax] 0.4 mg capsule 0.4 mg PO QHS Qty: 90 0RF topiramate 50 mg tablet 50 mg PO BID Qty: 60 0RF Primary Care Provider: Harmony William Referrals: Harmony William MD [Primary Care Provider] - Disposition Disposition: Acute Care Hospital [facility] What to do if you have Problems For any increased pain, shortness of breath, bleeding, nausea or vomiting, chestpain, or any unexpected problems, contact your Primary Care Provider. Call Barcoding Registry ([phone]) or report to the closest Emergency Room. Call 911 if necessary. 10/17/221951 <Electronically signed by Julio C Turpin MD> Cosigner Signature (if applicable): CC: Dr. Harmony William MD ~ Signed [facility] Work Phone: [phone] 837-403008-17-2023 Discharge summary Author Dash Vang [facility] October 08, 2022 7:47am Note Date/Time October 08, 2022 5: 30am [facility] Medical Records Department [address] [place] [address] Emergency Department Summary 10/08/22 MR#: [id number] Acct: [id number] Name: MIKE ADAMS Rep #:[id number] : 1960 62 From: Joselo Soto DO PCP: Dr. Harmony William MD Status:R EG ER Location: ED ADDENDUM by Dr. Dash Vang MD on 10/08/22 at 0747 Patient checked out to me. Troponin machine was down but came back up and his result came back at 4 well within normal limits, patient doing well and discharged according to the previous physicians plan and instructions. 10/08/22 0747<Electronically signed by Dash Vang MD> Cosigner Signature (if applicable): cc: Dr. Harmony William MD ~* Signed HPI History of Present Illness Chief Complaint: Seizure Detail of Chief Complaint: Seizure Informant: patient and family Narrative Narrative: Patient presents with seizure that occurred this morning. Caregiver called EMS after patient had seizure lasting 8 to 10 minutes. Patient with known seizure history and on Depakote and Keppra. Patient's speech difficult to understand. He denies chest pain or head pain. He denies recent illness. He has been compliant with his medications. [facility] Medical History (Updated 10/08/22 @ 06:[address] Joselo Soto DO) Bilateral lower extremity edema Blood clotting disorder Blood transfusion without reported diagnosis BPH (benign prostatic hyperplasia) Compression fx, thoracic spine Deep vein thrombosis (DVT) of left lower extremity Failure to thrive Femur fracture, left HLD (hyperlipidemia) Hypercoagulable state Hypertension Hypokalemia Hypothyroidism Localized edema Multiple falls Nondisplaced fracture of neck of left femur Parkinson disease Seizure disorder Tachycardia Toe pain, left Toe pain, right Home Medications topiramate 50 mg tablet 1 tab PO BID 04/24/20 [History Last Taken Unknown] levothyroxine 50 mcg tablet 50 mcg PO DAILY THYROID #90 tabs 10/25/20 [Rx Last Taken Unknown] mirtazapine 30 mg tablet 15 mg (1/2 x 30 mg) PO DAILY mood #90 tabs 10/25/20 [Rx Last Taken Unknown] atorvastatin 40 mg tablet 20 mg (1/2 x 40 mg) PO DAILY cholesterol #90 tabs 09/08/22 [Rx Last Taken Unknown] levetiracetam 1,000 mg tablet 500 mg (1/2 x 1,000 mg) PO BID SEIZURES #60 tabs 09/08/22 [Rx Last Taken Unknown] tamsulosin 0.4 mg capsule (Flomax) 0.4 mg PO QHS URINE #90 caps 09/08/22 [Rx Last Taken Unknown] divalproex 250 mg tablet,delayed release 250 mg PO DAILY #30 tabs 09/16/22 [Rx Last Taken Unknown] divalproex 250 mg tablet,delayed release 500 mg (2 x 250 mg) PO QHS #60 tabs 09/16/22 [Rx Last Taken Unknown] rivaroxaban 20 mg tablet 20 mg PO DAILY #30 tabs 09/16/22 [Rx Last Taken Unknown] blood pressure monitor #1 ea 09/23/22 [Rx Last Taken Unknown] propranolol 60 mg capsule,24 hr,extended release 60 mg PO DAILY #90 caps 09/23/22 [Rx Last Taken Unknown] compress.stocking,knee,reg,lrg #2 ea 09/24/22 [Rx Last Taken Unknown] potassium chloride 20 mEq tablet,extended release 20 meq PO BID #60 tabs 09/24/22 [Rx Last Taken Unknown] Allergy/AdvReac Type Severity Reaction Status Date / Time No Known Allergies Allergy Verified 10/08/22 05:21 Family History Mother Breast cancer Father Mouth cancer Brother Parkinson disease Surgical History History of left hip replacement History of orthopedic surgery S/P hip replacement Social History Smoking Status: Never smoker Smokeless tobacco user: chewing tobacco alcohol intake: never substance use type: does not use what type of physical activity do you participate in: none ROS ROS ED Review of Systems ROS Unobtainable: other Constitutional Constitutional ED: Reports lethargy; Denies chills, fever(s), sweats or weight loss Eyes Eyes: Denies blurry vision, change in vision or diplopia ENT ENT ED: Denies rhinorrhea or sore throat Cardiovascular Cardiovascular: Denies chest pain, orthopnea or racing heartbeat Respiratory/Chest Respiratory/Chest: Denies cough, dyspnea, dyspnea on exertion, orthopnea or sputum Gastrointestinal Gastrointestinal: Denies abdominal pain, diarrhea, nausea or vomiting Genitourinary Genitourinary ED: Denies dysuria, hematuria or urinary frequency Musculoskeletal Musculoskeletal: Denies arthralgias, back pain, myalgias or neck pain Integumentary Denies abscess, Abrasions or rash Neurologic Neurologic: Reports other Details: Seizure ; Denies headache(s) or weakness Psychiatric Psychiatric: Denies anxiety, depression or suicidal thoughts Endocrine Endocrinology: Denies polydipsia, polyphagia or polyuria Hematologic/Lymphatic Hematologic/Lymphatic: Denies easy bleeding, easy bruising or lymphadenopathy Allergic/Immunologic Allergic/Immunologic ED: Denies mouth swelling, tongue swelling or urticaria EXAM Physical Exam Const Vital Signs: 10/08/22 05:25 Temperature 97.8 F Temperature Source Temporal Pulse Rate 94 Respiratory Rate 16 Blood Pressure 118/63 Blood Pressure Mean 81 Pulse Ox 99 Positive well nourished and well developed General Appearance ED: well developed and NAD HEENT Reports TM's clear and moist mucous membranes normocephalic and atraumatic; Negative for trauma or tenderness Tympanic Membrane ED: Yes TM's clear Eyes PERRL and EOMs intact bilaterally General Eye ED: Negative for pale conjunctiva or scleral icterus Neck no lymphadenopathy, supple and no JVD General: Negative for tenderness Chest Wall inspection of chest normal and palpation of chest normal Chest: Negative for tenderness Resp normal respiratory effort and clear to auscultation bilaterally Effort and Inspection: Negative for respiratory distress or pain with movement Auscultation: Negative for rhonchi, wheezes or diminished lung sounds Cardio regular rate, regular rhythm, S1 normal heart sound, S2 normal heart sound and no murmurs Peripheral Pulses: pulses 2+ throughout GI normal to inspection, nondistended, normoactive bowel sounds, soft to palpation,non-tender, non-distended and no masses Back/Spine no CVA tenderness and no thoracic nor lumbar tenderness Extremity normal to inspection General Extremety ED: Negative for edema General Extremity: Negative for edema Neuro oriented x3, CN's II-XII intact bilaterally, no sensory deficits noted and gait normal Neuro Narrative: Patient has a fine tremor related to his Parkinson's. Sensorium / Orientation: awake, alert, oriented to person, oriented to place andoriented to time Motor Exam: strength 5/5 throughout and strength abnormal Psych mental status grossly normal Skin no rashes or lesions noted and no wounds MDM MDM MDM Narrative Medical decision making narrative: Patient presents with seizure witnessed by caregiver. Patient has known seizurehistory and history of Parkinson's. IV line established. Patient was given Keppra [address] scan of the brain without contrast was ordered as patientis on anticoagulation with rivaroxaban. Basic lab work obtained showed a white count of 11.8 with hemoglobin 13.6 and platelet count 200. Chemistries unremarkable. LFTs unremarkable. Urinalysis was normal. While in department on monitor patient does have a tremor and intermittently the monitor would warehouse picker what looked like V. tach however patient was completely asymptomatic and therefore I ordered an EKG. EKG obtained showed a sinus rhythm with a rate of 92 bpm while on the monitor at the same time that the EKG was being performed the monitor which show what looked like V. tach which I suspect is artifact as the EKG machine was showing a sinus rhythm. Patient remained asymptomatic throughout. Lab Data Attestation: I reviewed the patient's lab results. Labs: Laboratory Results - last 24 hr 10/08/22 10/08/22 05:30 05:35 WBC 11.8 H RBC 4.53 L Hgb 13.6 Hct 42.8 MCV 94.5 H MCH 30.0 MCHC 31.8 L RDW Std Deviation 47.3 H RDW Coeff of Colleen 13.6 Plt Count 200 MPV 9.6 Immature Gran % (Auto) 0.400 Neut % (Auto) 50.7 Lymph % (Auto) 26.7 Tift % (Auto) 19.3 H Eos % (Auto) 2.1 Baso % (Auto) 0.8 Absolute Neuts (auto) 6.0 Absolute Lymphs (auto) 3.15 Nucleated RBC % 0 Differential Comment SCANNED Diff Path Review May foll Sodium 141 Potassium 3.9 Chloride 108 H Carbon Dioxide 22.0 Anion Gap 11 BUN 22 H Creatinine 1.03 Estim Creat Clear Calc 64.68 Est GFR (MDRD) Af Amer 94 Est GFR (MDRD) Non-Af 78 BUN/Creatinine Ratio 21.4 H Glucose 118 H Calcium 9.5 Total Bilirubin 0.50 AST 10 L ALT 10 L Alkaline Phosphatase 48 Total Protein 8.2 Albumin 3.4 Globulin 4.8 H Albumin/Globulin Ratio 0.7 L Urine Color Yellow Urine Clarity Clear Urine pH 6.5 Ur Specific [place] 1.015 Urine Protein Negative Urine Glucose (UA) Normal Urine Ketones 15 H Urine Occult Blood Negative Urine Nitrite Negative Urine Bilirubin Negative Urine Urobilinogen 4 H Ur Leukocyte Esterase Negative Urine RBC 0 SEEN Urine WBC 0 SEEN Ur Squamous Epith Cells 0 SEEN Urine Bacteria RARE Urine Mucus 0 SEEN Valproic Acid 91 Radiography Diagnostic Testing: Clinical Impression(s) from Imaging Studies Brain CT 10/08/22 05:26 IMPRESSION: Severe generalized atrophy. Mild low density bilaterally in the deep white matter. This likely represents chronic small vessel ischemic changes in the deep white matter. Electronically Signed: Stevo De Souza MD at 6:23 EDT , EKG Initial EKG: Attestation: I personally reviewed and interpreted this EKG as follows: Comments: Sinus rhythm with a ventricular rate of 92 bpm with no acute ST segment changes Discharge Plan Triage Chief Complaint: Seizure ED Provider: Joselo Soto Dx/Rx/DC Orders Clinical Impression: Seizure Instructions: ED Seizure, Recurrent (Adult) Prescriptions: No Action levothyroxine 50 mcg tablet 50 mcg PO DAILY Qty: 90 1RF mirtazapine 30 mg tablet 15 mg PO DAILY Qty: 90 1RF (DME) blood pressure monitor Kit See Rx Instructions .MEDSUPPLY Qty: 1 0RF Rx Instructions: Check blood pressure daily for hypertension I10 propranolol 60 mg capsule,extended release 24 hr 60 mg PO DAILY Qty: 90 3RF topiramate 50 MG tablet 1 tab PO BID levetiracetam 1,000 mg tablet 500 mg PO BID Qty: 60 0RF atorvastatin 40 mg tablet 20 mg PO DAILY Qty: 90 3RF tamsulosin [Flomax] 0.4 mg capsule 0.4 mg PO QHS Qty: 90 3RF divalproex 250 mg tablet,delayed release (DR/EC) 250 mg PO DAILY Qty: 30 4RF divalproex 250 mg tablet,delayed release (DR/EC) 500 mg PO QHS Qty: 60 4RF rivaroxaban 20 mg tablet 20 mg PO DAILY Qty: 30 4RF Rx Instructions: TAKE 1 TABLET BY MOUTH DAILY potassium chloride 20 mEq tablet extended release 20 meq PO BID Qty: 60 1RF (DME) compress.stocking,knee,reg,lrg Misc See Rx Instructions .MEDSUPPLY Qty: 2 1RF Rx Instructions: wear daily for venous insufficiency 20-30 mmHg Primary Care Provider: Harmony William Referrals: Harmony William MD [Primary Care Provider] - 3-5 Days Kris Brizuela MD [Non-Staff -Ordering Privileges] - 3-5 Days Disposition Disposition: Home, Self Care What to do if you have Problems For any increased pain, shortness of breath, bleeding, nausea or vomiting, chestpain, or any unexpected problems, contact your Primary Care Provider. Call [facility] ([phone]) or report to the closest Emergency Room. Call 911 if necessary. 10/08/22 0708 <Electronically signed by Joselo Soto DO> Cosigner Signature (if applicable): CC: Dr. Harmony William MD ~ Signed [facility] Work Phone: Evaluation + Plan note No data available for this section [facility] Evaluation note* Diagnosis Onset Date Resolution Status Bilateral lower extremity edema chronic Debility chronic Hypothyroidism chronic Seizure disorder chronic Tachycardia chronic [facility] Work Phone: Evaluation note* Diagnosis Onset Date Resolution Status Bilateral lower extremity edema chronic Debility chronic Hypothyroidism chronic Seizure disorder chronic Tachycardia chronic Adult failure to thrive acut e Chronic anticoagulation acut e Gingivitis acute History of blood clotting disorder acute History of seizure acute [facility] Work Phone: Evaluation note* Diagnosis Onset Date Resolution Status Bilateral lower extremity edema chronic Debility chronic Hypothyroidism chronic Seizure disorder chronic Tachycardia chronic Adult failure to thrive acut e Chronic anticoagulation acut e Gingivitis acute History of blood clotting disorder acute History of seizure acute Seizure disorder chronic [facility] Work Phone: Evaluation noteNo assessment information available [facility] Work Phone: Evaluation note* Diagnosis Onset Date Resolution Status Epilepsy acute [facility] Work Phone: Hospital Discharge instructions No data available for this section [facility] Progress note No data available for this section [facility] Reason for referral (narrative)No reason for referral information available[facility] Work Phone: Chief Complaint and Reason for Visit Chief Complaint FOLLOW UP FROM SEIZURE Reason for Visit Bilateral lower extr emity edema Debility Hypothyroidism Seizure disorder Tachycardia Chief Complaint FOLLOW UP FROM SEIZURE DEBILITY, FAILURE TO THRIVE Reason for Visit Bilateral lower extr emity edema Debility Hypothyroidism Seizure disorder Tachycardia Adult failure to thrive Chronic anticoagulation Gingivitis History of blood clotting disorder History of seizure Chief Complaint FOLLOW UP FROM SEIZURE DEBILITY, FAILURE TO THRIVE DEBILITY, FAILURE TO THRIVE DEBILITY, FAILURE TO THRIVE DEBILITY, FAILURE TO THRIVE Reason for Visit Bilateral lower extr emity edema Debility Hypothyroidism Seizure disorder Tachycardia Adult failure to thrive Chronic anticoagulation Gingivitis History of blood clotting disorder History of seizure Chief Complaint FOLLOW UP FROM SEIZURE DEBILITY, FAILURE TO THRIVE DEBILITY, FAILURE TO THRIVE DEBILITY, FAILURE TO THRIVE DEBILITY, FAILURE TO THRIVE PRISON LABWORK LAB WORK Seizure PRISON LAB WORK PRISON LAB WORK PRISON LAB WORK Reason for Visit Bilateral lower extr emity edema Debility Hypothyroidism Seizure disorder Tachycardia Adult failure to thrive Chronic anticoagulation Gingivitis History of blood clotting disorder History of seizure Seizure disorder Chief Complaint PRISON LAB WOR K PRISON LAB WORK PRISON LAB WORK PRISON LABWORK Chief Complaint PRISON LAB WOR K PRISON LAB WORK PRISON LABWORK 4 M FU LABWORK Reason for Visit Epilepsy Chief Complaint PRISON LAB WOR K PRISON LABWORK 4 M FU LABWORK LABWORK Reason for Visit Epilepsy Chief Complaint Admit Date MURMUR June 23, 2024 2:24pm Family History No Family History Records Found Relationship Condition Age at Onset Recorded Date/T sandro mother Malignant neoplasm of breast Unknown father Malignant neoplasm of oral cavity Unknown brother Parkinson's disease Unknown Advance Directives No Advanced Directives Records Found Advance Directive Response Recorded Date/ Time Name of Medical Power of Program Services Assistant MARYLOU DRISCOLL MAKE UP ARTIST October 08, 2022 5:25am Living Will No October 08 3 5:25am Power of Program Services Assistant Yes October 08 023 5:25am Advance Directive Response Recorded Date/ Time Name of Medical Power of Program Services Assistant MARYLOU DRISCOLL MAKE UP ARTIST October 08, 2022 5:25am Living Will No October 17 3 7:30pm Power of Program Services Assistant No October 17 023 7:30pm Advance Directive Response Recorded Date/ Time Name of Medical Power of Program Services Assistant MARYLOU DRISCOLL MAKE UP ARTIST October 08, 2022 5:25am Name of Medical Power of Program Services Assistant [email or web address] October 17, 2022 8:49pm Living Will No October 17 8:49pm Power of Program Services Assistant Yes October 17 8:49pm Advance Directive Response Recorded Date/ Time Name of Medical Power of Program Services Assistant MARYLOU DRISCOLL MAKE UP ARTIST October 08, 2022 4:25am Name of Medical Power of Program Services Assistant marylou October 17, 2022 7:49pm Living Will No October 17 3 7:49pm Power of Program Services Assistant Yes October 17 7:49pm Advance Directive Response Recorded Date/ Time Living Will No October 17 3 7:49pm Power of Program Services Assistant Yes October 17 7:49pm Summary Purpose Additional Source Comments Patient Care team informatio n (unrecognized section and content) Team Status: Active Member Role Status Dates Dr. Jose Alvarez MD Family Provider Active Dr. Harmony William MD Primary Care Provider Active Team Status: Inactive Member Role Status Dates Dr. Harmony Willima MD Primary Care Fabiola moffett, Attending Provider, Referring Provider Active Team Status: Inactive Member Role Status Dates Dr. Harmony William MD Primary Care Provider, Atten ding Provider Active Team Status: Inactive Member Role Status Dates Dr. Harmony William MD Primary Care Provider Active Dr. Joselo Soto DO Emergency Provider Active Team Status: Inactive Member Role Status Dates Dr. Harmony William MD Primary Care Provider Active Dr. Joselo Soto DO Attending Provider, Emergency Pro vider Active Team Status: Active Member Role Status Dates Dr. Harmony William MD Primary Care Provider Active Dr. Julio C Turpin MD Emergency Provider Active Dr. Randall Marie DO Admit Provider, Attending Provider Active Team Status: Active Member Role Status Dates Dr. Harmony William MD Primary Care Provider Active Dr. Julio C Turpin MD Emergency Provider Active Dr. Ranadll Marie DO Admit Provider, Other Pro vider Active Dr. Liv Tobar MD Attending Provider, Other Provid er Active Team Status: Active Member Role Status Dates Dr. Harmony William MD Primary Care Provider Active Dr. Julio C Turpin MD Emergency Provider Active Dr. Randall Marie DO Admit Provider, Other Pro vider Active Dr. Liv Tobar MD Attending Provider, Other Provid er Active Dr. Omer Castro MD Other Provider Active Team Status: Active Member Role Status Dates Dr. Harmony William MD Primary Care Provider Active Dr. Julio C Turpin MD Emergency Provider Active Dr. Randall Marie DO Admit Provider, Other Pro vider Active Dr. Liv Tobar MD Attending Provider, Other Provid er Active Dr. Omer Castro MD Other Provider Active Dr. Aung Benavidez DDS Other Provider Active Team Status: Inactive Member Role Status Dates Dr. Harmony William MD Primary Care Provider Active Dr. Julio C Turpin MD Emergency Provider Active Dr. Randall Marie DO Admit Provider, Other Pro vider Active Dr. Liv Tobar MD Attending Provider Active Dr. Omer Castro MD Other Provider Active Dr. Aung Benavidez DDS Other Provider Active Team Status: Inactive Member Role Status Dates Dr. Harmony William MD Primary Care Provider, Refer ring Provider Active Dr. Kris Brizuela MD Attending Provider Active Team Status: Active Member Role Status Dates Dr. Harmony William MD Primary Care Provider Active Francisco COLEY Attending Provider Active Team Status: Inactive Member Role Status Dates Dr. Harmony William MD Primary Care Provider Active Francisco COLEY Attending Provider Active Team Status: Active Member Role Status Dates Dr. Jose Alvarez MD Family Provider Active Zebulun Beam VSC, MARKET RISK ANALYST-C Primary Care Provider Active Team Status: Inactive Member Role Status Dates Zebulun Beam VSC, MARKET RISK ANALYST-C Primary Care Provider Active Start: April 20, 2024 End: April 20, 2024 Zebulun Beam VSC, MARKET RISK ANALYST-C Attending Provider Active Start: April 20, 2024 End: April 20, 2024 Team Status: Active Member Role Status Dates Manuel Zhou VSC, MARKET RISK ANALYST-C Primary Care Provider Active Team Status: Inactive Member Role Status Dates Zebusukumar Beam VSC, MARKET RISK ANALYST-C Attending Provider Active Start: June 23, 2024 End: June 23, 2024 Zebulun Beam VSC, MARKET RISK ANALYST-C Referring Provider Active Start: June 23, 2024 End: June 23, 2024 Manuel Zhou VSC, MARKET RISK ANALYST-C Primary Care Provider Active Start: June 23, 2024 End: June 23, 2024 Team Status: Active Member Role Status Dates Manuel Zhou VSC, MARKET RISK ANALYST-C Primary Care Provider Active Start: June 23, 2024 Dr. Yoni Vogel MD Attending Provider Active S tart: June 23, 2024 Goals (unrecognized section and content) Goals may be documented in a n alternate section (unrecognized sect ion and content) No Status Records FoundNo Status Records Found INFORMATION SOURCE (unrecogn ized section and content) DATE CREATED AUTHOR 01/28/2023 [facility] ([place]) DATE CREATED AUTHOR AUTHOR'S ANIIZ ATION 07/01/2024 [facility] FOR RECORDS PERTAINING TO PATIENTS WHO ARE [...] BE BASED ON THE PRIMARY CLINICAL RECORDS. [facility]. provides no warranty or guarantee of the accuracy or completeness of information in this document.
[2024-11-13 20:26] VITALS: BMI 23.9
[2024-11-13 20:33] VITALS: BP 138/77; PULSE 86; RESP 17; TEMP 36.6; O2SAT 98
--- NOTE | 2024-11-13 21:30 | CM.ED ---
Social Work GIORGI met with patient and patients caregiver. Caregiver states she has been caring for patient on and off for about 12 years. Today they were evicted from their home, caregiver states she has nowhere for patient to go and, in the confusion of leaving their home, patients medications were left behind. SW called [facility] and [facility], both stated they did not have beds available this evening. When asked if patient could stay where caregiver is going, caregiver states she is staying with a friend who has a basement apartment and patient is unable to navigate stairs. SW asked if there were any other family or friends available for patient, caregiver denies anyone that can care for patient as he is unable to be left alone. Caregiver states that she spoke with patients [facility] case briefer who instructed her to bring patient to ED for admission and fpc placement. When asked for more information, caregiver was unable to remember caseworkers name. While patient was in the ED, caregiver left. SW attempted to reach caregiver, there was no answer. Message left for return call, no return call was received. Yen Uribe, DIRECTOR OF DESIGN, DAIRY ASSOCIATE
[2024-11-13] MEDS: Divalproex (ER) 500 MG Tablet PO (21:50)
[2024-11-14] VITALS (9 sets, daily range): BP systolic 76–261; BP diastolic 53–216; PULSE 72–88; RESP 16–18; TEMP 36.6–36.9; O2SAT 97–100
[2024-11-14] MEDS: Permethrin 1% 1 APPLIC Bottle TOPICAL (00:50)
[2024-11-14] MEDS: Divalproex (ER) 250 MG Tablet PO (08:35)
--- NOTE | 2024-11-14 10:56 | CASEMGMT ---
Social Work- SW spoke with Chiquita, [facility] ([phone]). Chiquita reports that pt has a medical alert and home delivered meals. Chiquita reports that pt was working to be placed in SNF from community. [facility] declined and [facility] was requesting documentation. Pt and family have no preference on facilities, per Chiquita, other than they do not want [place] facilities. Chiquita reports that Natalie is caregiver of 12 years and authorized rep. Chiquita shared that they do not have HCPOA papers for pt. Chiquita indicated that the intent is for intermediate level of care. SW to follow up with pt. REINALDO Hoover
--- NOTE | 2024-11-14 14:27 | NURSING ---
talked with pt's caregiver- Dell rodriguez
--- NOTE | 2024-11-14 14:44 | PCM.PN.HOSP ---
Subjective Subjective Doing well, no issues overnight. Feeling pretty well Objective Data Objective Data Vital Signs: Vital Signs Temp Pulse Resp BP Pulse Ox O2 Del Method 98.4 F 77 18 109/62 97 Room Air 11/14/24 08:32 11/14/24 08:32 11/14/24 08:32 11/14/24 08:32 11/14/24 08:32 11/14/24 08:44 Oxygen Delivery Method Room Air Weight: 126 lb 8.725 oz Body Mass Index (BMI) 23.9 Intake & Output: Intake and Output for Last 24 Hours 11/13/24 11/14/24 11/15/24 03:59 03:59 03:59 Intake Total 150 / 150 450 / 450 Output Total 700 / 700 Balance -550 / -550 450 / 450 Lab / Micro Data 11/13/24 18:15 11/13/24 18:15 Labs: Laboratory Results - last 24 hr 11/13/24 18:15: WBC 9.9, RBC 4.56 L, Hgb 14.2, Hct 42.9, MCV 94.1 H, MCH 31.1, MCHC 33.1, RDW Std Deviation 44.8 H, RDW Coeff of Colleen 13.0, Plt Count 197, MPV 9.4, Immature Gran % (Auto) 0.200, Neut % (Auto) 63.8, Lymph % (Auto) 22.9, Cochran % (Auto) 10.3 H, Eos % (Auto) 2.1, Baso % (Auto) 0.7, Absolute Neuts (auto) 6.3, Absolute Lymphs (auto) 2.26, Nucleated RBC % 0, Sodium 138, Potassium 3.7, Chloride 104, Carbon Dioxide 20.3 L, Anion Gap 13, BUN 26 H, Creatinine 0.91, Est GFR (MDRD) Non-Af 94, BUN/Creatinine Ratio 28.6 H, Glucose 73, Calcium 9.5 Physical Exam Narrative General: Alert, Oriented x3, Cooperative, No apparent distress HEENT: Atraumatic, PERRLA, EOMI, Normocephalic Oral: Moist Mucosa Neck: Supple, No JVD Lungs: Diminished, Normal air movement, No rhonchi, No wheeze, No rales Cardiovascular: Regular rate, Regular Rhythm, Normal S1, Normal S2, No murmurs Abdomen: Soft, Non Tender, Non-Distended, No Hepato-splenomegaly Extremities: No edema, Capillary Refill Less than 3 Seconds Skin: No rashes, No breakdown Musculoskeletal: No Tenderness to Palpation of Joints or Extremities Neurological: Chronic neurological deficits from his Parkinson's Psych/Mental Status: Normal Affect, Appropriate Assessment & Plan Assessment/Plan (1) Adult failure to thrive: PLAN: Plan 1. Failure to thrive with inability complete ADLs and difficulty with ambulation secondary to Parkinson's disease ? PT/OT ? Case management for disposition ? Most of this is due to Parkinson's 2. Seizure disorder ? Continue with his home medications ? Stable 3. Hypothyroidism ? Stable ? Continue with Synthroid 4. BPH with obstruction ? Stable/continue with his home medications 5. History of VTE ? Stable Continue with Xarelto DVT: Xarelto Charges/Coding Visit Charges Inpatient E&M: 20838 Subs Hosp L2
--- NOTE | 2024-11-14 15:10 | CASEMGMT ---
BRIONES Met with patient to complete BRIONES form. BRIONES form and its content were verbally explained and patient's questions were answered to the best of my ability.? Patient voiced understanding and signed BRIONES form.? Patient provided a copy of signed BRIONES form and original placed in patient's chart.? Patient had no further questions. Alaina Mckeon, Discharge Planning Asst
--- NOTE | 2024-11-14 15:18 | CASEMGMT ---
Social Work- GIORGI spoke with caregiver Natalie who reports that she is staying with friends and has her own health problems that prevent her from continuing to care for pt. Natalie reports that she assisted pt with transportation, medication, and home management. Natalie reports that pt gets around very slowly, but was able to heat up mom's meals that are delivered. Natalie reports that she and pt are both agreeable to group home placement. Pt agreeable to SNf anywhere but [facility] as he had a bad experience there. GIORGI called Chiquita and left a message regarding [facility] waiver for [place] as a possibility for d/c planning. GIORGI completed referral to [facility] for review. GIORGI remains available to follow. REINALDO Hoover
--- NOTE | 2024-11-14 20:52 | NURSING ---
pt bp manually 180/120 (lowest out of 4x), no c/o pain, anxiety. Will continue to monitor
[2024-11-14] MEDS: 0.9% Saline Lock 10 ML Syringe IV (20:56)
[2024-11-14] MEDS: Divalproex (ER) 500 MG Tablet PO (20:57)
--- NOTE | 2024-11-14 22:37 | PCM.HOSP.N ---
Hospitalist Note Notified of HS BP being 170/119, no h/o HTN, no anti-hypertensive regimen noted on med rec. Pt denies having pain. Per recommendations of the [place] [employer], clonidine PO is a reasonable and predictable anti-hypertensive medication for acute hypertension. Order placed for clonidine 0.1mg PO twice daily, with HOLD parameters for SBP less than 110mmHg.
[2024-11-15 02:30] VITALS: BP 75/57; PULSE 66; RESP 16; TEMP 36.4; O2SAT 98
[2024-11-15 04:41] VITALS: BP 98/56; PULSE 76; RESP 16; TEMP 36.3; O2SAT 99
[2024-11-15 09:12] VITALS: BP 92/67; PULSE 92; RESP 16; TEMP 36.6; O2SAT 100
[2024-11-15] MEDS: Divalproex (ER) 250 MG Tablet PO (09:18)
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
--- NOTE | 2024-11-15 12:52 | CASEMGMT ---
Addendum entered by Dian Garrett 11/15/24 17:24: Social Work- SW received notice that [facility] could accept and does allow tobacco use five times per day. [facility] does not allow tobacco use. GIORGI updated pt who reports he would like SW to call Natalie. Natalie feels [facility] would be a better fit and pt has been admitted there prior (2020). DCA updated on facility choice. SW completed PASRR; placed on chart. Pt will need a level 2 evaluation. GIORGI remains available to follow. REINALDO Hoover Original Note: Social Work- SW received notice that [facility] declined referral. GIORGI met with pt to discuss next steps in d/c. Pt agreeable to referrals to [facility] and [facility]; declines a SNF list at this time. DCA notified to begin referrals to [facility] and [facility] per pt request. GIORGI spoke with Sukhdeep Porras . Chiquita reports that pt would qualify for waiver and shared that the process would be to have acceptance at [place] with an available waiver apartment, then she would approve. Chiquita reports that the facility would need to contact her. GIORGI updated DCA. GIORGI remains available to follow. REINALDO Hoover
--- NOTE | 2024-11-15 14:14 | CASEMGMT ---
Addendum entered by Alaina Mckeon 11/16/24 08:48: [facility] has accepted and will allows chewing tobacco. [facility] does not. Pts POA wishes to proceed with [facility]. [facility] notified that they are foc and that pts passr triggered for futher review. Alaina Mckeon DC Planning Asst. Original Note: Discharge Planning Referral sent to [facility] and [facility]. Alaina Mckeon DC Planning Asst.
[2024-11-15 16:01] VITALS: BP 99/60; PULSE 89; RESP 16; TEMP 36.5; O2SAT 99
[2024-11-15] MEDS: Nicotine (PBKC) 7 MG Patch TD (16:22)
[2024-11-15 23:35] VITALS: BP 93/68; PULSE 67; RESP 16; TEMP 36.5; O2SAT 98
[2024-11-15] MEDS: 0.9% Saline Lock 10 ML Syringe IV (23:40)
[2024-11-15] MEDS: Divalproex (ER) 500 MG Tablet PO (23:41)
[2024-11-16 06:58] VITALS: BP 96/62; PULSE 67; RESP 16; TEMP 36.7; O2SAT 99
[2024-11-16 07:13] LABS: Hematocrit 35.1 % (40-54); Hemoglobin 11.6 g/dL (13.0-16.5); Immature Granulocytes Count 0.010 X10^3/uL (0.0-0.0); Mean Corp Hgb Conc 33.0 g/dL (32-36); Mean Corpuscular Volume 94.4 fL (80-94); Mean Platelet Vol. 10.1 fl (6.2-12.0); NRBC Flagged by Analyzer 0 % (0-5); POSITIVE COUNT YES; Platelet Count 113 K/mm3 (150-450); RBC Distribution Width CV 13.2 % (11.6-14.6); RBC Distribution Width SD 46.3 fl (35.1-43.9); Red Blood Count 3.72 M/mm3 (4.6-6.2); White Blood Count 6.8 K/mm3 (4.4-11.0)
[2024-11-16 07:45] LABS: Differential Indicated SCAN CRITERIA MET
[2024-11-16 08:03] LABS: Anion Gap 12 (5-15); BUN 27 mg/dL (4-19); BUN/Creat Ratio 30.4 RATIO (10-20); Calcium,Total 8.9 mg/dL (7.6-11.0); Carbon Dioxide 17.6 mmol/L (21.0-32.0); Chloride 110 mmol/L (98-108); Estimated Creatinine Clearance 63.45 ml/min (50-250); Glucose 83 mg/dL (70-99); Potassium 3.5 mmol/L (3.3-5.1)
[2024-11-16 09:31] VITALS: BP 100/76; PULSE 79; RESP 16; TEMP 36.6; O2SAT 98
[2024-11-16] MEDS: Divalproex (ER) 250 MG Tablet PO (09:45)
[2024-11-16] MEDS: Nicotine (PBKC) 7 MG Patch TD (09:46)
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
[2024-11-16 16:19] VITALS: BP 99/57; PULSE 90; RESP 16; TEMP 36.6; O2SAT 100
[2024-11-16] MEDS: Divalproex (ER) 500 MG Tablet PO (20:39)
[2024-11-16 20:45] VITALS: BP 109/73; PULSE 91; RESP 16; TEMP 36.5; O2SAT 99
[2024-11-17 05:10] VITALS: BP 98/74; PULSE 77; RESP 15; TEMP 36.5; O2SAT 99
--- NOTE | 2024-11-17 08:52 | CASEMGMT ---
Discharge Planning Clinical updates sent to [facility]. Level II determination has not been received at this time. Alaina Mckeon DC Planning Asst.
[2024-11-17 09:38] VITALS: BP 99/66; PULSE 95; RESP 16; TEMP 36.4; O2SAT 100
[2024-11-17] MEDS: Divalproex (ER) 250 MG Tablet PO (09:45)
--- NOTE | 2024-11-17 10:18 | CASEMGMT ---
Social Work Email sent to [facility] Department of Developmental Disabilities ([employer]) regarding level II further review. Advocated for flexibility in prioritization of the level II, taking into consideration circumstances of current observation stay and social situation necessitating a different placement. Message also left at [facility] Board of [employer] - Keyonna Fortune - requesting expedited review when receives Level II. Review of [facility] system shows patient was able to be ruled out for further review in 2020. Plan: [facility], skilled versus intermediate level of care, pending insurance and Level II PASSR approval. Anticipate patient will be in the hospital trough the weekend waiting on approvals. -TEO Adames
[2024-11-17 10:36] VITALS: O2SAT 100
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
[2024-11-17 14:41] VITALS: BP 102/75; PULSE 79; RESP 16; TEMP 36.7; O2SAT 100
[2024-11-17 22:56] VITALS: BP 102/69; PULSE 85; RESP 16; TEMP 36.7; O2SAT 98
[2024-11-17] MEDS: 0.9% Saline Lock 10 ML Syringe IV (22:58)
[2024-11-17] MEDS: Divalproex (ER) 500 MG Tablet PO (23:04)
[2024-11-18 02:47] VITALS: BP 94/68; PULSE 64; RESP 16; TEMP 37.1; O2SAT 98
[2024-11-18 06:18] VITALS: BP 101/63; PULSE 68; RESP 16; TEMP 36.7; O2SAT 97
--- NOTE | 2024-11-18 08:50 | PCM.PN.HOSP ---
Subjective Subjective No issues Objective Data Objective Data Vital Signs: Vital Signs Temp Pulse Resp BP Pulse Ox O2 Del Method 98.0 F 68 16 101/63 97 Room Air 11/18/24 06:18 11/18/24 06:18 11/18/24 06:18 11/18/24 06:18 11/18/24 06:18 11/18/24 06:18 Oxygen Delivery Method Room Air Weight: 126 lb 8.725 oz Body Mass Index (BMI) 23.9 Intake & Output: Intake and Output for Last 24 Hours 11/17/24 11/18/24 11/19/24 03:59 03:59 03:59 Intake Total 500 / 500 600 / 600 Output Total 300 / 300 Balance 500 / 500 300 / 300 Lab / Micro Data 11/16/24 06:58 11/16/24 06:58 Social Homelessness:: Unsheltered Physical Exam Narrative General: Alert, Oriented x3, Cooperative, No apparent distress HEENT: Atraumatic, PERRLA, EOMI, Normocephalic Oral: Moist Mucosa Neck: Supple, No JVD Lungs: Diminished, Normal air movement, No rhonchi, No wheeze, No rales Cardiovascular: Regular rate, Regular Rhythm, Normal S1, Normal S2, No murmurs Abdomen: Soft, Non Tender, Non-Distended, No Hepato-splenomegaly Extremities: No edema, Capillary Refill Less than 3 Seconds Skin: No rashes, No breakdown Musculoskeletal: No Tenderness to Palpation of Joints or Extremities Neurological: Chronic neurological deficits from his Parkinson's Psych/Mental Status: Normal Affect, Appropriate Assessment & Plan Assessment/Plan (1) Adult failure to thrive: PLAN: Plan 1. Failure to thrive with inability complete ADLs and difficulty with ambulation secondary to Parkinson's disease ? PT/OT ? Case management for disposition ? Most of this is due to Parkinson's ? Delay in discharge secondary to trying to find placement 2. Seizure disorder ? Continue with his home medications ? Stable 3. Hypothyroidism ? Stable ? 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 Continue with his home medications 5. History of VTE ? Stable ?Continue with Xarelto DVT: Xarelto Charges/Coding Visit Charges Inpatient E&M: 12429 Subs Hosp L1
[2024-11-18 09:00] VITALS: BP 91/68; PULSE 87; RESP 16; TEMP 36.6; O2SAT 95
[2024-11-18] MEDS: Divalproex (ER) 250 MG Tablet PO (09:59)
[2024-11-18 15:00] VITALS: BP 100/64; PULSE 75; RESP 16; TEMP 36.7; O2SAT 99
[2024-11-18 21:18] VITALS: BP 109/72; PULSE 72; RESP 16; TEMP 36.8; O2SAT 97
[2024-11-18] MEDS: 0.9% Saline Lock 10 ML Syringe IV (21:26)
[2024-11-18] MEDS: Divalproex (ER) 500 MG Tablet PO (21:27)
[2024-11-19 03:21] VITALS: BP 97/60; PULSE 65; RESP 16; TEMP 36.9; O2SAT 97
[2024-11-19 10:03] VITALS: BP 107/66; PULSE 90; RESP 16; TEMP 36.8; O2SAT 100
[2024-11-19] MEDS: Nicotine (PBKC) 7 MG Patch TD (10:07)
[2024-11-19] MEDS: Permethrin 1% 1 APPLIC Bottle TOPICAL (10:07)
[2024-11-19] MEDS: Divalproex (ER) 250 MG Tablet PO (10:08)
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
[2024-11-19 16:03] VITALS: BP 102/60; PULSE 74; RESP 16; TEMP 36.6; O2SAT 98
[2024-11-19 22:29] VITALS: BP 104/67; PULSE 75; RESP 16; TEMP 36.7; O2SAT 96
[2024-11-19] MEDS: Divalproex (ER) 500 MG Tablet PO (22:33)
[2024-11-20 04:25] VITALS: BP 98/62; PULSE 64; RESP 14; TEMP 36.6; O2SAT 98
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
--- NOTE | 2024-11-20 08:13 | CASEMGMT ---
Social Work SW looked up the PAS/RR in the [facility] system to see if the [facility] process has yet been completed, the PAS/RR is still listed as referred to [facility]. ZAIN Clark
[2024-11-20 09:52] VITALS: BP 92/70; PULSE 74; RESP 16; TEMP 36.4; O2SAT 100
[2024-11-20] MEDS: Nicotine (PBKC) 7 MG Patch TD (09:55)
[2024-11-20] MEDS: Divalproex (ER) 250 MG Tablet PO (10:34)
--- NOTE | 2024-11-20 13:29 | CASEMGMT ---
Social Work Received response from Department of Developmental Disability regarding processing of patient's level II PASRR screen: The PASRR level II process, by rule, can take up to 9 business days - not including weekends and holidays. We work in the order in which we receive reviews, and this was received 11/16/2024. Please keep in mind when submitting PASRR requests that we do work as quickly as possible; however, there are several PASRR submitted each day, and they all require time to review and process. Plan: [facility] placement, pending results of Level II PASRR screen evaluation. Social Work will continue to follow and assist. -TEO Adames
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
[2024-11-20 15:21] VITALS: BP 102/70; PULSE 70; RESP 16; TEMP 36.5; O2SAT 99
--- NOTE | 2024-11-20 16:20 | CASEMGMT ---
Social Work Emailed by secure fax, SW note regarding age of manifestation of seizure to Amanda Regalado at Department of Developmental Disabilties. ( [email or web address] ) Plan: Waiting on outcome of Level II PASRR for placement at [facility]. -TEO Adames
[2024-11-20] MEDS: Divalproex (ER) 500 MG Tablet PO (22:03)
[2024-11-20 22:05] VITALS: BP 95/68; PULSE 66; RESP 16; TEMP 36.6; O2SAT 98
[2024-11-21 05:15] VITALS: BP 92/64; PULSE 73; RESP 16; TEMP 36.5; O2SAT 98
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
[2024-11-21] MEDS: Divalproex (ER) 250 MG Tablet PO (09:47)
[2024-11-21] MEDS: Nicotine (PBKC) 7 MG Patch TD (09:48)
[2024-11-21 09:51] VITALS: BP 91/69; PULSE 79; RESP 14; TEMP 36.7; O2SAT 98
[2024-11-21 14:00] VITALS: BP 144/71; PULSE 78; RESP 16; TEMP 36.6; O2SAT 99
[2024-11-21 20:22] VITALS: BP 127/107; PULSE 78; RESP 18; TEMP 36.6; O2SAT 99
[2024-11-21] MEDS: Divalproex (ER) 500 MG Tablet PO (20:26)
[2024-11-22 05:29] VITALS: BP 117/71; PULSE 68; RESP 16; TEMP 36.6; O2SAT 98
[2024-11-22 06:33] LABS: Hematocrit 36.2 % (40-54); Hemoglobin 12.0 g/dL (13.0-16.5); Immature Granulocytes Count 0.020 X10^3/uL (0.0-0.0); Mean Corp Hgb Conc 33.1 g/dL (32-36); Mean Corpuscular Volume 93.5 fL (80-94); Mean Platelet Vol. 9.5 fl (6.2-12.0); NRBC Flagged by Analyzer 0 % (0-5); Platelet Count 160 K/mm3 (150-450); RBC Distribution Width CV 13.2 % (11.6-14.6); RBC Distribution Width SD 45.0 fl (35.1-43.9); Red Blood Count 3.87 M/mm3 (4.6-6.2); White Blood Count 8.0 K/mm3 (4.4-11.0)
[2024-11-22 07:10] LABS: Anion Gap 10 (5-15); BUN 35 mg/dL (4-19); BUN/Creat Ratio 40.9 RATIO (10-20); Calcium,Total 8.9 mg/dL (7.6-11.0); Carbon Dioxide 20.8 mmol/L (21.0-32.0); Chloride 107 mmol/L (98-108); Estimated Creatinine Clearance 64.19 ml/min (50-250); Glucose 84 mg/dL (70-99); Potassium 3.9 mmol/L (3.3-5.1)
--- NOTE | 2024-11-22 08:15 | PCM.PN.HOSP ---
Reason for Visit Chief Complaint: Debility, failure to thrive Subjective Subjective Patient is a 64-year-old gentleman admitted with adult failure to thrive Objective Data Objective Data Vital Signs: Vital Signs Temp Pulse Resp BP Pulse Ox O2 Del Method 97.9 F 68 16 117/71 98 Room Air 11/22/24 05:29 11/22/24 05:29 11/22/24 05:29 11/22/24 05:29 11/22/24 05:29 11/22/24 05:29 Oxygen Delivery Method Room Air Weight: 57.4 kg Body Mass Index (BMI) 23.9 Intake & Output: Intake and Output for Last 24 Hours 11/20/24 11/21/24 11/22/24 23:59 23:59 23:59 Intake Total 400 / 400 700 / 700 Output Total 500 / 500 600 / 600 900 / 900 Balance -500 / -500 -200 / -200 -200 / -200 Lab / Micro Data 11/22/24 06:18 11/22/24 06:18 Labs: Laboratory Results - last 24 hr 11/22/24 06:18: WBC 8.0, RBC 3.87 L, Hgb 12.0 L, Hct 36.2 L, MCV 93.5, MCH 31.0, MCHC 33.1, RDW Std Deviation 45.0 H, RDW Coeff of Colleen 13.2, Plt Count 160, MPV 9.5, Immature Gran % (Auto) 0.300, Neut % (Auto) 44.4 L, Lymph % (Auto) 35.5, [place] % (Auto) 14.0 H, Eos % (Auto) 5.0, Baso % (Auto) 0.8, Absolute Neuts (auto) 3.6, Absolute Lymphs (auto) 2.84, Nucleated RBC % 0, Sodium 138, Potassium 3.9, Chloride 107, Carbon Dioxide 20.8 L, Anion Gap 10, BUN 35 H, Creatinine 0.86, Estim Creat Clear Calc 64.19, Est GFR (MDRD) Non-Af 97, BUN/Creatinine Ratio 40.9 H, Glucose 84, Calcium 8.9 Social Homelessness:: Unsheltered Physical Exam Narrative GENERAL: cooperative HEENT: Atraumatic; normocephalic EYES; Anicteric, Normal Conjunctiva NECK; supple, normal thyroid, RESPIRATORY: Diminished to auscultation CARDIOVASCULAR: Regular S1 S2, GI: soft, normoactive bowel sounds, : No Renal angle tenderness; EXTREMITIES: No edema, no clubbing, MUSCULOSKELETAL: no muscle wasting NEURO: Awake; no lateralizing signs. SKIN: No Rash PSYCH; Flat affect Assessment & Plan Assessment/Plan (1) Adult failure to thrive: PLAN: Plan Patient is a 64-year-old gentleman admitted with adult failure to thrive 1. Failure to thrive with inability complete ADLs and difficulty with ambulation secondary to Parkinson's disease ? Requested for PT OT eval and psychiatric social worker supervisor to assist with discharge planning. Plan is for patient to be discharged to a assisted facility following approval from the [facility] 2. Parkinson's disease ? Complicating care patient is on carbidopa/levodopa will continue with home dose 3. Seizure disorder ? Patient is on Keppra and topiramate did continue with home dose 4. Hypothyroidism ? Patient is on levothyroxine home dose continued 5. BPH with lower urinary obstructive symptoms - Patient treated with tamsulosin 6. History of previous VTE ? Patient is on Xarelto did continue 7. Head lice Patient was treated with permethrin x 2 doses. Subsequently placed in isolation 8. DVT prophylaxis ? Patient already on systemic anticoagulation Time spent in the patient's overall evaluation,decision-making process, review of diagnostic data, adjustment of management, discussion with other providers, nursing nursing and ancillary staff involved in patient's care documentation,36 Minutes Charges/Coding Visit Charges Inpatient E&M: 15420 Subs Hosp L2 Reason for DC delay: PASRR pending from [facility]
--- NOTE | 2024-11-22 08:41 | CASEMGMT ---
Discharge Planning Updates sent to [facility]. Level II remains pending. Alaina Mckeon DC Planning Asst.
[2024-11-22] MEDS: Nicotine (PBKC) 7 MG Patch TD (10:20)
[2024-11-22] MEDS: Senna/Docusate Sodium 1 Tablet 2 TABLET PO (10:20)
[2024-11-22 10:28] VITALS: BP 122/58; PULSE 75; RESP 16; TEMP 36.4; O2SAT 98
[2024-11-22] MEDS: Divalproex (ER) 250 MG Tablet PO (10:36)
[2024-11-22 16:38] VITALS: BP 91/70; PULSE 78; RESP 16; TEMP 37.1; O2SAT 98
[2024-11-22] MEDS: Divalproex (ER) 500 MG Tablet PO (20:27)
[2024-11-22 20:29] VITALS: BP 109/65; PULSE 84; RESP 18; TEMP 36.7; O2SAT 99
[2024-11-23 05:11] VITALS: BP 94/65; PULSE 67; RESP 18; TEMP 36.4; O2SAT 95
--- NOTE | 2024-11-23 09:49 | PCM.PN.HOSP ---
Reason for Visit Chief Complaint: Debility, failure to thrive Subjective Subjective Patient seen had a relative uneventful night. Awaiting approval from the [facility] prior to being transferred to a long-term facility Objective Data Objective Data Vital Signs: Vital Signs Temp Pulse Resp BP Pulse Ox O2 Del Method 97.6 F L 67 18 94/65 95 Room Air 11/23/24 05:11 11/23/24 05:11 11/23/24 05:11 11/23/24 05:11 11/23/24 05:11 11/23/24 05:18 Oxygen Delivery Method Room Air Weight: 57.4 kg Body Mass Index (BMI) 23.9 Intake & Output: Intake and Output for Last 24 Hours 11/21/24 11/22/24 11/23/24 23:59 23:59 23:59 Intake Total 400 / 400 1650 / 1650 500 / 500 Output Total 600 / 600 1100 / 1100 550 / 550 Balance -200 / -200 550 / 550 -50 / -50 Lab / Micro Data 11/22/24 06:18 11/22/24 06:18 Social Homelessness:: Unsheltered Physical Exam Narrative GENERAL: cooperative HEENT: Atraumatic; normocephalic EYES; Anicteric, Normal Conjunctiva NECK; supple, normal thyroid, RESPIRATORY: Diminished to auscultation CARDIOVASCULAR: Regular S1 S2, GI: soft, normoactive bowel sounds, : No Renal angle tenderness; EXTREMITIES: No edema, no clubbing, MUSCULOSKELETAL: no muscle wasting NEURO: Awake; no lateralizing signs. SKIN: No Rash PSYCH; Flat affect Assessment & Plan Assessment/Plan (1) Adult failure to thrive: PLAN: Plan Patient is a 64-year-old gentleman admitted with adult failure to thrive 1. Failure to thrive with inability complete ADLs and difficulty with ambulation secondary to Parkinson's disease ? Requested for PT OT eval and social services designee to assist with discharge planning. Plan is for patient to be discharged to a [facility] facility following approval from the [facility] ? 11/23/2024; transfer still pending 2. Parkinson's disease ? Complicating care patient is on carbidopa/levodopa will continue with home dose 3. Seizure disorder ? Patient is on Keppra and topiramate did continue with home dose 4. Hypothyroidism ? Patient is on levothyroxine home dose continued 5. BPH with lower urinary obstructive symptoms - Patient treated with tamsulosin 6. History of previous VTE ? Patient is on Xarelto did continue 7. Head lice Patient was treated with permethrin x 2 doses. Subsequently placed in isolation 8. DVT prophylaxis ? Patient already on systemic anticoagulation Charges/Coding Visit Charges Inpatient E&M: 18077 Subs Hosp L1 Reason for DC delay: PASRR pending from [facility]
[2024-11-23] MEDS: Nicotine (PBKC) 7 MG Patch TD (10:37)
[2024-11-23] MEDS: Divalproex (ER) 250 MG Tablet PO (10:37)
[2024-11-23 10:38] VITALS: BP 96/70; PULSE 85; RESP 18; TEMP 36.6; O2SAT 98
[2024-11-23 11:00] VITALS: RESP 18
--- NOTE | 2024-11-23 13:36 | CASEMGMT ---
Social Work- SW checked on status of Level 2; reported as still pending. SW remains available to follow. REINALDO Hoover
[2024-11-23 14:34] VITALS: BP 101/64; PULSE 86; RESP 16; TEMP 37; O2SAT 97
[2024-11-23 21:01] VITALS: BP 92/67; PULSE 73; RESP 15; TEMP 36.5; O2SAT 99
[2024-11-23] MEDS: Divalproex (ER) 500 MG Tablet PO (21:07)
[2024-11-24 03:58] VITALS: BP 95/61; PULSE 62; RESP 15; TEMP 37.2; O2SAT 98
[2024-11-24 04:00] VITALS: RESP 18
[2024-11-24 06:11] LABS: Hematocrit 33.4 % (40-54); Hemoglobin 11.3 g/dL (13.0-16.5); Immature Granulocytes Count 0.020 X10^3/uL (0.0-0.0); Mean Corp Hgb Conc 33.8 g/dL (32-36); Mean Corpuscular Volume 92.5 fL (80-94); Mean Platelet Vol. 9.5 fl (6.2-12.0); NRBC Flagged by Analyzer 0 % (0-5); Platelet Count 155 K/mm3 (150-450); RBC Distribution Width CV 13.1 % (11.6-14.6); RBC Distribution Width SD 44.2 fl (35.1-43.9); Red Blood Count 3.61 M/mm3 (4.6-6.2); White Blood Count 6.6 K/mm3 (4.4-11.0)
[2024-11-24 06:49] LABS: Anion Gap 10 (5-15); BUN 34 mg/dL (4-19); BUN/Creat Ratio 41.9 RATIO (10-20); Calcium,Total 8.9 mg/dL (7.6-11.0); Carbon Dioxide 19.6 mmol/L (21.0-32.0); Chloride 108 mmol/L (98-108); Estimated Creatinine Clearance 68.16 ml/min (50-250); Glucose 95 mg/dL (70-99); Magnesium 2.0 mg/dL (1.5-2.2); Potassium 3.8 mmol/L (3.3-5.1)
--- NOTE | 2024-11-24 07:16 | PCM.PN.HOSP ---
Reason for Visit Chief Complaint: Debility, failure to thrive Subjective Subjective Patient seen no change in clinical condition. Lab work reviewed remains stable. Awaiting insurance precertification prior to transfer to long-term facility Objective Data Objective Data Vital Signs: Vital Signs Temp Pulse Resp BP Pulse Ox O2 Del Method 98.9 F 62 18 95/61 98 Room Air 11/24/24 03:58 11/24/24 03:58 11/24/24 04:00 11/24/24 03:58 11/24/24 03:58 11/24/24 04:00 Oxygen Delivery Method Room Air Weight: 57.4 kg Body Mass Index (BMI) 23.9 Intake & Output: Intake and Output for Last 24 Hours 11/22/24 11/23/24 11/24/24 23:59 23:59 23:59 Intake Total 1650 / 1650 1650 / 1650 Output Total 1100 / 1100 900 / 1100 300 / 300 Balance 550 / 550 750 / 550 -300 / -300 Lab / Micro Data 11/24/24 06:01 11/24/24 06:01 Labs: Laboratory Results - last 24 hr 11/24/24 06:01: WBC 6.6, RBC 3.61 L, Hgb 11.3 L, Hct 33.4 L, MCV 92.5, MCH 31.3, MCHC 33.8, RDW Std Deviation 44.2 H, RDW Coeff of Colleen 13.1, Plt Count 155, MPV 9.5, Immature Gran % (Auto) 0.300, Neut % (Auto) 38.6 L, Lymph % (Auto) 40.8, [place] % (Auto) 14.7 H, Eos % (Auto) 4.7, Baso % (Auto) 0.9, Absolute Neuts (auto) 2.6, Absolute Lymphs (auto) 2.69, Nucleated RBC % 0, Sodium 138, Potassium 3.8, Chloride 108, Carbon Dioxide 19.6 L, Anion Gap 10, BUN 34 H, Creatinine 0.81, Estim Creat Clear Calc 68.16, Est GFR (MDRD) Non-Af 98, BUN/Creatinine Ratio 41.9 H, Glucose 95, Calcium 8.9, Phosphorus 3.7, Magnesium 2.0 Social Homelessness:: Unsheltered Physical Exam Narrative GENERAL: cooperative HEENT: Atraumatic; normocephalic EYES; Anicteric, Normal Conjunctiva NECK; supple, normal thyroid, RESPIRATORY: Diminished to auscultation CARDIOVASCULAR: Regular S1 S2, GI: soft, normoactive bowel sounds, : No Renal angle tenderness; EXTREMITIES: No edema, no clubbing, MUSCULOSKELETAL: no muscle wasting NEURO: Awake; no lateralizing signs. SKIN: No Rash PSYCH; Flat affect Assessment & Plan Assessment/Plan (1) Adult failure to thrive: PLAN: Plan Patient is a 64-year-old gentleman admitted with adult failure to thrive 1. Failure to thrive with inability complete ADLs and difficulty with ambulation secondary to Parkinson's disease ? Requested for PT OT eval and social sciences chair to assist with discharge planning. Plan is for patient to be discharged to a long-term facility following approval from the [facility] ? 11/23/2024; transfer still pending ? 11/24/2024 no change in clinical condition 2. Parkinson's disease ? Complicating care patient is on carbidopa/levodopa will continue with home dose 3. Seizure disorder ? Patient is on Keppra and topiramate did continue with home dose 4. Hypothyroidism ? Patient is on levothyroxine home dose continued 5. BPH with lower urinary obstructive symptoms - Patient treated with tamsulosin 6. History of previous VTE ? Patient is on Xarelto did continue 7. Head lice Patient was treated with permethrin x 2 doses. Subsequently placed in isolation 8. DVT prophylaxis ? Patient already on systemic anticoagulation Charges/Coding Visit Charges Inpatient E&M: 53298 Subs Hosp L1 Reason for DC delay: PASRR pending from [facility]
[2024-11-24 10:10] VITALS: BP 94/64; PULSE 73; RESP 16; TEMP 36.6; O2SAT 100
[2024-11-24] MEDS: Divalproex (ER) 250 MG Tablet PO (10:18)
--- NOTE | 2024-11-24 12:10 | CASEMGMT ---
Addendum entered by Dian Garrett 11/24/24 16:41: Referral status of Level II remains pending at this time. GIORGI remains available to follow. REINALDO Hoover Original Note: Social Work- GIORGI called [facility] Maciel BRO to follow up on referral status. GIORGI left a voicemail requesting a return call. GIORGI remains available to follow. REINALDO Hoover
[2024-11-24 14:00] VITALS: BP 92/58; PULSE 64; RESP 18; TEMP 36.6; O2SAT 100
[2024-11-24 20:42] VITALS: BP 96/77; PULSE 74; RESP 16; TEMP 36.6; O2SAT 97
[2024-11-24] MEDS: Divalproex (ER) 500 MG Tablet PO (20:44)
[2024-11-25 02:40] VITALS: BP 102/56; PULSE 71; RESP 18; TEMP 36.6; O2SAT 97
--- NOTE | 2024-11-25 07:30 | PCM.PN.HOSP ---
Reason for Visit Chief Complaint: Debility, failure to thrive Subjective Subjective Patient seen uneventful night still waiting for placement in a fci facility Objective Data Objective Data Vital Signs: Vital Signs Temp Pulse Resp BP Pulse Ox O2 Del Method 97.9 F 71 18 102/56 L 97 Room Air 11/25/24 02:40 11/25/24 02:40 11/25/24 02:40 11/25/24 02:40 11/25/24 02:40 11/25/24 02:40 Oxygen Delivery Method Room Air Weight: 57.4 kg Body Mass Index (BMI) 23.9 Intake & Output: Intake and Output for Last 24 Hours 11/23/24 11/24/24 11/25/24 23:59 23:59 23:59 Intake Total 1650 / 1650 600 / 600 Output Total 900 / 1100 300 / 550 250 / 250 Balance 750 / 550 300 / 50 -250 / -250 Lab / Micro Data 11/25/24 07:50 11/24/24 06:01 Social Homelessness:: Unsheltered Physical Exam Narrative GENERAL: cooperative HEENT: Atraumatic; normocephalic EYES; Anicteric, Normal Conjunctiva NECK; supple, normal thyroid, RESPIRATORY: Diminished to auscultation CARDIOVASCULAR: Regular S1 S2, GI: soft, normoactive bowel sounds, : No Renal angle tenderness; EXTREMITIES: No edema, no clubbing, MUSCULOSKELETAL: no muscle wasting NEURO: Awake; no lateralizing signs. SKIN: No Rash PSYCH; Flat affect Assessment & Plan Assessment/Plan (1) Adult failure to thrive: PLAN: Plan Patient is a 64-year-old gentleman admitted with adult failure to thrive 1. Failure to thrive with inability complete ADLs and difficulty with ambulation secondary to Parkinson's disease ? Requested for PT OT eval and sr. social media & mobile manager to assist with discharge planning. Plan is for patient to be discharged to a fci facility following approval from the [facility] ? 11/23/2024; transfer still pending ? 11/24/2024 no change in clinical condition ? 11/25/2024; no change in clinical condition 2. Parkinson's disease ? Complicating care patient is on carbidopa/levodopa will continue with home dose 3. Seizure disorder ? Patient is on Keppra and topiramate did continue with home dose 4. Hypothyroidism ? Patient is on levothyroxine home dose continued 5. BPH with lower urinary obstructive symptoms - Patient treated with tamsulosin 6. History of previous VTE ? Patient is on Xarelto did continue 7. Head lice Patient was treated with permethrin x 2 doses. Subsequently placed in isolation 8. DVT prophylaxis ? Patient already on systemic anticoagulation Charges/Coding Visit Charges Inpatient E&M: 17201 Subs Hosp L1 Reason for DC delay: PASRR pending from [facility]
[2024-11-25 08:07] LABS: Hematocrit 38.4 % (40-54); Hemoglobin 12.4 g/dL (13.0-16.5); Immature Granulocytes Count 0.020 X10^3/uL (0.0-0.0); Mean Corp Hgb Conc 32.3 g/dL (32-36); Mean Corpuscular Volume 93.7 fL (80-94); Mean Platelet Vol. 9.6 fl (6.2-12.0); NRBC Flagged by Analyzer 0 % (0-5); Platelet Count 164 K/mm3 (150-450); RBC Distribution Width CV 13.2 % (11.6-14.6); RBC Distribution Width SD 45.1 fl (35.1-43.9); Red Blood Count 4.10 M/mm3 (4.6-6.2); White Blood Count 7.4 K/mm3 (4.4-11.0)
[2024-11-25] MEDS: Divalproex (ER) 250 MG Tablet PO (08:27)
[2024-11-25 08:37] VITALS: BP 90/65; PULSE 73; RESP 16; TEMP 36.4; O2SAT 98
[2024-11-25 10:05] LABS: Anion Gap 12 (5-15); BUN 30 mg/dL (4-19); BUN/Creat Ratio 35.3 RATIO (10-20); Calcium,Total 9.1 mg/dL (7.6-11.0); Carbon Dioxide 19.1 mmol/L (21.0-32.0); Chloride 107 mmol/L (98-108); Estimated Creatinine Clearance 64.19 ml/min (50-250); Glucose 88 mg/dL (70-99); Potassium 4.0 mmol/L (3.3-5.1)
[2024-11-25 10:22] VITALS: BP 113/64; PULSE 84; RESP 16; TEMP 36.6; O2SAT 97
[2024-11-25 15:39] VITALS: BP 95/61; PULSE 84; RESP 16; TEMP 36.6; O2SAT 99
[2024-11-25 20:10] VITALS: BP 115/79; PULSE 85; RESP 16; TEMP 36.6; O2SAT 98
[2024-11-25] MEDS: Divalproex (ER) 500 MG Tablet PO (20:13)
--- NOTE | 2024-11-25 22:00 | PCM.HOSP.N ---
Hospitalist Note Patient with noted recurrent lice, will re-treat.
[2024-11-25] MEDS: Permethrin 1% 1 APPLIC Bottle TOPICAL (23:16)
[2024-11-26 02:15] VITALS: BP 110/76; PULSE 75; RESP 16; TEMP 36.6; O2SAT 97
[2024-11-26 07:15] LABS: Hematocrit 34.0 % (40-54); Hemoglobin 11.3 g/dL (13.0-16.5); Immature Granulocytes Count 0.030 X10^3/uL (0.0-0.0); Mean Corp Hgb Conc 33.2 g/dL (32-36); Mean Corpuscular Volume 93.4 fL (80-94); Mean Platelet Vol. 9.6 fl (6.2-12.0); NRBC Flagged by Analyzer 0 % (0-5); Platelet Count 162 K/mm3 (150-450); RBC Distribution Width CV 13.3 % (11.6-14.6); RBC Distribution Width SD 45.9 fl (35.1-43.9); Red Blood Count 3.64 M/mm3 (4.6-6.2); White Blood Count 6.8 K/mm3 (4.4-11.0)
--- NOTE | 2024-11-26 07:44 | PCM.PN.HOSP ---
Reason for Visit Chief Complaint: Debility, failure to thrive Subjective Subjective Patient seen remains stable insurance approval from [facility] still pending Objective Data Objective Data Vital Signs: Vital Signs Temp Pulse Resp BP Pulse Ox O2 Del Method 97.9 F 75 16 110/76 97 Room Air 11/26/24 02:15 11/26/24 02:15 11/26/24 02:15 11/26/24 02:15 11/26/24 02:15 11/26/24 02:15 Oxygen Delivery Method Room Air Weight: 57.4 kg Body Mass Index (BMI) 23.9 Intake & Output: Intake and Output for Last 24 Hours 11/24/24 11/25/24 11/26/24 23:59 23:59 23:59 Intake Total 600 / 600 850 / 850 Output Total 300 / 550 700 / 700 250 / 250 Balance 300 / 50 150 / 150 -250 / -250 Lab / Micro Data 11/26/24 06:38 11/26/24 06:38 Labs: Laboratory Results - last 24 hr 11/25/24 07:50: WBC 7.4, RBC 4.10 L, Hgb 12.4 L, Hct 38.4 L, MCV 93.7, MCH 30.2, MCHC 32.3, RDW Std Deviation 45.1 H, RDW Coeff of Colleen 13.2, Plt Count 164, MPV 9.6, Immature Gran % (Auto) 0.300, Neut % (Auto) 42.8 L, Lymph % (Auto) 37.3, Warrick % (Auto) 13.6 H, Eos % (Auto) 5.0, Baso % (Auto) 1.0, Absolute Neuts (auto) 3.2, Absolute Lymphs (auto) 2.74, Nucleated RBC % 0, Sodium 138, Potassium 4.0, Chloride 107, Carbon Dioxide 19.1 L, Anion Gap 12, BUN 30 H, Creatinine 0.86, Estim Creat Clear Calc 64.19, Est GFR (MDRD) Non-Af 97, BUN/Creatinine Ratio 35.3 H, Glucose 88, Calcium 9.1 11/26/24 06:38: WBC 6.8, RBC 3.64 L, Hgb 11.3 L, Hct 34.0 L, MCV 93.4, MCH 31.0, MCHC 33.2, RDW Std Deviation 45.9 H, RDW Coeff of Colleen 13.3, Plt Count 162, MPV 9.6, Immature Gran % (Auto) 0.400, Neut % (Auto) 40.7 L, Lymph % (Auto) 38.4, Warrick % (Auto) 14.3 H, Eos % (Auto) 5.3 H, Baso % (Auto) 0.9, Absolute Neuts (auto) 2.8, Absolute Lymphs (auto) 2.61, Nucleated RBC % 0 Social Homelessness:: Unsheltered Physical Exam Narrative GENERAL: cooperative HEENT: Atraumatic; normocephalic EYES; Anicteric, Normal Conjunctiva NECK; supple, normal thyroid, RESPIRATORY: Diminished to auscultation CARDIOVASCULAR: Regular S1 S2, GI: soft, normoactive bowel sounds, : No Renal angle tenderness; EXTREMITIES: No edema, no clubbing, MUSCULOSKELETAL: no muscle wasting NEURO: Awake; no lateralizing signs. SKIN: No Rash PSYCH; Flat affect Assessment & Plan Assessment/Plan (1) Adult failure to thrive: PLAN: Plan Patient is a 64-year-old gentleman admitted with adult failure to thrive 1. Failure to thrive with inability complete ADLs and difficulty with ambulation secondary to Parkinson's disease ? Requested for PT OT eval and manager social media to assist with discharge planning. Plan is for patient to be discharged to a alf facility following approval from the [facility] ? 11/23/2024; transfer still pending ? 11/24/2024 no change in clinical condition ? 11/25/2024; no change in clinical condition ? 11/26/2024Patient seen remains stable insurance approval from [facility] still pending 2. Parkinson's disease ? Complicating care patient is on carbidopa/levodopa will continue with home dose 3. Seizure disorder ? Patient is on Keppra and topiramate did continue with home dose 4. Hypothyroidism ? Patient is on levothyroxine home dose continued 5. BPH with lower urinary obstructive symptoms - Patient treated with tamsulosin 6. History of previous VTE ? Patient is on Xarelto did continue 7. Head lice Patient was treated with permethrin x 2 doses. Subsequently placed in isolation 8. DVT prophylaxis ? Patient already on systemic anticoagulation Charges/Coding Visit Charges Inpatient E&M: 33534 Subs Hosp L1 Reason for DC delay: PASRR pending from [facility]
[2024-11-26 08:01] LABS: Anion Gap 10 (5-15); BUN 34 mg/dL (4-19); BUN/Creat Ratio 43.0 RATIO (10-20); Calcium,Total 8.9 mg/dL (7.6-11.0); Carbon Dioxide 20.3 mmol/L (21.0-32.0); Chloride 110 mmol/L (98-108); Estimated Creatinine Clearance 69.01 ml/min (50-250); Glucose 92 mg/dL (70-99); Potassium 3.7 mmol/L (3.3-5.1)
[2024-11-26 10:40] VITALS: BP 95/68; PULSE 76; RESP 16; TEMP 36.6; O2SAT 99
[2024-11-26] MEDS: Nicotine (PBKC) 7 MG Patch TD (10:59)
[2024-11-26] MEDS: Divalproex (ER) 250 MG Tablet PO (10:59)
[2024-11-26 16:25] VITALS: BP 102/73; PULSE 86; RESP 17; TEMP 36.6; O2SAT 97
[2024-11-26 20:27] VITALS: BP 108/69; PULSE 91; RESP 16; TEMP 36.9; O2SAT 97
[2024-11-26] MEDS: Divalproex (ER) 500 MG Tablet PO (20:30)
[2024-11-27 02:46] VITALS: BP 108/53; PULSE 67; RESP 16; TEMP 36.7; O2SAT 98
[2024-11-27 10:00] VITALS: BP 106/70; PULSE 69; RESP 16; RESP 18; TEMP 36.8; O2SAT 98
[2024-11-27] MEDS: Nicotine (PBKC) 7 MG Patch TD (10:49)
[2024-11-27] MEDS: Divalproex (ER) 250 MG Tablet PO (10:52)
--- NOTE | 2024-11-27 11:11 | CASEMGMT ---
Social Work- SW spoke with JOSEFINA Patel [employer] rule out rep, who reports that she will review today and email SW with determination once completed. REINALDO Hoover
--- NOTE | 2024-11-27 12:40 | CASEMGMT ---
Discharge Planning Updates sent to [facility]. Alaina Mckeon DC Planning Asst.
--- NOTE | 2024-11-27 12:51 | PCM.TXEXTCAR ---
Diet Diet Order/Speech Therapy: INPATIENT Hospital Diet / Speech Therapy Order(s) 11/13/24 20:39 Diet: Regular - General Food consistency:: Regular Liquid Consistency:: Regular/Thin Routine Orders/Code Status Suppository Frequency: Daily PRN Routine Lab Work: CBC (1 week) and BMP (1 week) Code Status: Full Code DC O2, CPAP, BIPAP needs Home O2 Discharge instructions: No Therapies Weight Bearing: Full weight bearing Physical Therapy: Eval and Treat Occupational Therapy: Eval and Treat Problem/Diagnosis (1) Adult failure to thrive: Status: Acute Code(s): R62.7 - Adult failure to thrive Allergies/Procedures Done in Hospital Allergies No Known Allergies Allergy (Verified 11/13/24 14:22) Procedures: None Type of Care/Length of Stay Estimated LOS: More Than 30 Days Type of Care Needed: Intermediate Rehab Potential: Fair Prognosis: Fair Additional Orders/Day of Discharge Day of Discharge: 11/27/24 Dietary and Speech Recommendations Dietitian Recommendations/Changes: Continue liberal regular diet as ordered Consult if changes in pt nutritional status Discharge Plan Admission Admit Date/Time: 11/13/24 19:59 Attending Provider: Emely Holm Primary Care Provider: Manuel Zhou [facility] Consulting Providers: Liv Tobar; Dexter Vásquez; Stephen Wolfe Discharge Orders/Prescriptions Prescriptions: No Action (DME) blood pressure monitor Kit See Rx Instructions .MEDSUPPLY Qty: 1 0RF Rx Instructions: Check blood pressure daily for hypertension I10 levothyroxine 50 mcg tablet 50 mcg PO DAILY mirtazapine 15 mg tablet 15 mg PO QHS Qty: 30 0RF levetiracetam 500 mg tablet 500 mg PO BID carbidopa-levodopa 25-100 mg tablet 1 tab PO TID divalproex 250 mg tablet extended release 24 hr 250 mg PO DAILY Rx Instructions: 1t am & 2hs divalproex [Depakote ER] 250 mg tablet extended release 24 hr 500 mg PO QHS Rx Instructions: 1t am & 2hs rivaroxaban 20 mg tablet 20 mg PO DAILY Qty: 30 4RF Rx Instructions: TAKE 1 TABLET BY MOUTH DAILY tamsulosin [Flomax] 0.4 mg capsule 0.4 mg PO QHS Qty: 90 0RF topiramate 50 mg tablet 50 mg PO BID Qty: 60 0RF Referrals / Follow Up: Manuel Zhou, PRODUCT DEVELOPMENT WORKER-C [Primary Care Provider, Family Practice]
--- NOTE | 2024-11-27 13:15 | CASEMGMT ---
Discharge Planning Level II determination rec'd. [facility] updated and asked to submit for intermedate loc. Alaina Mckeon DC Planning Asst.
--- NOTE | 2024-11-27 13:18 | CASEMGMT ---
Social Work- SW received determination of rule out for level 2. DCA updated to notify [facility]. SW remains available to follow for LOC. Plan: [facility]; pend LOC REINALDO Hoover
--- NOTE | 2024-11-27 13:56 | CASEMGMT ---
[facility] has obtained intermediate loc for admission. SW updated. Alaina Mckeon DC Planning Asst.
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
--- NOTE | 2024-11-27 14:26 | PHA.DC.MR.R ---
Pharmacy [facility] Reconciliation Pharmacy Service has performed discharge medication reconciliation for this patient. The patient's discharge medication list was reviewed for discrepancies and discrepancies were resolved. Medications at Discharge Home Medications rivaroxaban 20 mg tablet 20 mg PO DAILY #30 tabs 09/16/22 blood pressure monitor #1 ea 09/23/22 tamsulosin 0.4 mg capsule (Flomax) 0.4 mg PO QHS URINE #90 caps 10/08/22 topiramate 50 mg tablet 50 mg PO BID #60 tabs 10/08/22 mirtazapine 15 mg tablet 15 mg PO QHS mood #30 tabs 10/20/22 levothyroxine 50 mcg tablet 50 mcg PO DAILY THYROID 03/09/23 carbidopa 25 mg-levodopa 100 mg tablet 1 tab PO TID 11/13/24 divalproex 250 mg tablet,extended release 24 hr 250 mg PO DAILY 11/13/24 divalproex 250 mg tablet,extended release 24 hr (Depakote ER) 500 mg PO QHS 11/13/24 levetiracetam 500 mg tablet 500 mg PO BID 11/13/24 acetaminophen 325 mg tablet 650 mg (2 x 325 mg) PO Q6H PRN PRN Pain 1-10 Or Fever >100.7 #0 tabs 11/27/24 melatonin 10 mg disintegrating tablet 10 mg PO QHS PRN PRN Insomnia #0 tabs 11/27/24 menthol 0.44 %-zinc oxide 20.6 % topical ointment (Calmoseptine) 1 applic topical BID #0 grams 11/27/24 nicotine 7 mg/24 hr daily transdermal patch 7 mg transdermal DAILY #0 ea 11/27/24 sennosides 8.6 mg-docusate sodium 50 mg tablet (Stimulant Laxative Plus) 2 tab PO BID PRN PRN Constipation #0 tabs 11/27/24
--- NOTE | 2024-11-27 14:53 | CASEMGMT ---
Social Work Level II and LOC has been obtained.? Physician updated and pt is ready for discharge today.? PASRR form completed in [facility]. SW met with pt and they are agreeable to discharge plan as stated above.? DCA and bedside nurse notified of discharge. DCA to complete all final arrangements and notifications. SW faxed discharge paperwork to Sukhdeep Porras CM. Disposition:SW, intermediate level of care REINALDO Hoover
--- NOTE | 2024-11-27 15:44 | CASEMGMT ---
Discharge Planning Discharge orders, signed med list, and transport time sent to [facility]. Physicians will transport pt by wheelchair at 6p. Nursing, SW, pt, and his HC POA (Natalie) updated. Alaina Mckeon DC Planning Asst
[2024-11-27 16:00] VITALS: RESP 18
[2024-11-27 16:17] VITALS: BP 127/60; PULSE 70; RESP 18; TEMP 37.2; O2SAT 98
[2024-11-27 20:04] VITALS: BP 135/77; PULSE 89; RESP 16; TEMP 36.6; O2SAT 100
[2024-11-27] MEDS: Divalproex (ER) 500 MG Tablet PO (20:07)
== END 2024-11-27 23:05 | disposition intermediate care facility (04) ==
LOC: ED 19:56 → MS3 20:02
PROVIDERS: Family Medicine; Internal Medicine; Admitting Provider Internal Medicine; Emergency Provider Emergency Medicine; PCP Nurse Practitioner Family; Visit Provider Internal Medicine
DX: R26.2 Difficulty in walking, not elsewhere classified (principal); G20.A1 Parkinson's disease without dyskinesia, without mention of fluctuations; G40.909 Epilepsy, unspecified, not intractable, without status epilepticus; R53.81 Other malaise; B85.0 Pediculosis due to Pediculus humanus capitis; E03.9 Hypothyroidism, unspecified; N40.1 Benign prostatic hyperplasia with lower urinary tract symptoms; Z79.890 Hormone replacement therapy; R26.89 Other abnormalities of gait and mobility; I10 Essential (primary) hypertension; E78.00 Pure hypercholesterolemia, unspecified; Z86.718 Personal history of other venous thrombosis and embolism; R62.7 Adult failure to thrive; R60.0 Localized edema; N13.8 Other obstructive and reflux uropathy; Z79.899 Other long term (current) drug therapy; Z79.01 Long term (current) use of anticoagulants; F17.220 Nicotine dependence, chewing tobacco, uncomplicated
CPT/HCPCS: 36415; 80048; 83735; 84100; 85025; 97110; 97116; 97162; 97166; 97530; 97535; 99221; 99285; A4216; G0378

== ENCOUNTER → 2024-12-05 04:00 | Outpatient (REF) | payer MEDICARE, MEDICAID, SELFPAY ==
[2024-12-05 09:15] LABS: Hematocrit 36.6 % (40-54); Hemoglobin 11.8 g/dL (13.0-16.5); Immature Granulocytes Count 0.030 X10^3/uL (0.0-0.0); Mean Corp Hgb Conc 32.2 g/dL (32-36); Mean Corpuscular Volume 95.1 fL (80-94); Mean Platelet Vol. 10.0 fl (6.2-12.0); NRBC Flagged by Analyzer 0 % (0-5); Platelet Count 190 K/mm3 (150-450); RBC Distribution Width CV 13.1 % (11.6-14.6); RBC Distribution Width SD 45.7 fl (35.1-43.9); Red Blood Count 3.85 M/mm3 (4.6-6.2); White Blood Count 7.5 K/mm3 (4.4-11.0)
[2024-12-05 09:35] LABS: AST(SGOT) 24 U/L (<=37); Alanine Aminotransfer ALT/SGPT 6 U/L (<=46); Albumin, Serum 3.4 g/dL (3.4-4.8); Alkaline Phosphatase 45 U/L (40-129); Anion Gap 10 (5-15); BUN 29 mg/dL (4-19); BUN/Creat Ratio 36.7 RATIO (10-20); Calcium,Total 8.8 mg/dL (7.6-11.0); Carbon Dioxide 21.5 mmol/L (21.0-32.0); Chloride 108 mmol/L (98-108); Globulin 2.7 g/dL (2.2-4.2); Glucose 94 mg/dL (70-99); Potassium 3.6 mmol/L (3.3-5.1); T4 Total, Thyroxin 5.0 ug/dL (4.5-12.1)
== END ==
LOC: OLS.SW 04:00
PROVIDERS: PCP Nurse Practitioner Family; Referring Provider Family Medicine; Visit Provider Family Medicine
DX: R53.83 Other fatigue (principal); E03.9 Hypothyroidism, unspecified; F03.90 Unspecified dementia, unspecified severity, without behavioral disturbance, psychotic disturbance, mood disturbance, and anxiety; I10 Essential (primary) hypertension; G20.C Parkinsonism, unspecified
CPT/HCPCS: 36415; 80053; 84436; 84443; 85025

== ENCOUNTER → 2024-12-07 05:00 | Outpatient (REF) | payer MEDICARE, MEDICAID, SELFPAY ==
[2024-12-07 06:41] LABS: Hematocrit 35.5 % (40-54); Hemoglobin 11.9 g/dL (13.0-16.5); Immature Granulocytes Count 0.020 X10^3/uL (0.0-0.0); Mean Corp Hgb Conc 33.5 g/dL (32-36); Mean Corpuscular Volume 92.7 fL (80-94); Mean Platelet Vol. 9.8 fl (6.2-12.0); NRBC Flagged by Analyzer 0 % (0-5); Platelet Count 200 K/mm3 (150-450); RBC Distribution Width CV 13.0 % (11.6-14.6); RBC Distribution Width SD 43.8 fl (35.1-43.9); Red Blood Count 3.83 M/mm3 (4.6-6.2); White Blood Count 7.9 K/mm3 (4.4-11.0)
[2024-12-07 06:56] LABS: AST(SGOT) 26 U/L (<=37); Alanine Aminotransfer ALT/SGPT 6 U/L (<=46); Albumin, Serum 3.5 g/dL (3.4-4.8); Alkaline Phosphatase 50 U/L (40-129); Anion Gap 10 (5-15); BUN 31 mg/dL (4-19); BUN/Creat Ratio 39.4 RATIO (10-20); Calcium,Total 9.1 mg/dL (7.6-11.0); Carbon Dioxide 19.9 mmol/L (21.0-32.0); Chloride 109 mmol/L (98-108); Globulin 2.9 g/dL (2.2-4.2); Glucose 95 mg/dL (70-99); Potassium 3.6 mmol/L (3.3-5.1); T4 Total, Thyroxin 5.5 ug/dL (4.5-12.1)
[2024-12-11 08:07] LABS: KEPPRA (LEVETIRACETAM) 19.1 ug/mL (10.0-40.0)
== END ==
LOC: OLS.SW 05:00
PROVIDERS: PCP Nurse Practitioner Family; Visit Provider Family Medicine
DX: E03.9 Hypothyroidism, unspecified (principal); R56.9 Unspecified convulsions
CPT/HCPCS: 36415; 80053; 80177; 84436; 84443; 85025

== ENCOUNTER → 2024-12-14 | Outpatient (REF) | payer MEDICARE, MEDICAID, SELFPAY | LOC: OLS.SW 07:15 | PROVIDERS: PCP Nurse Practitioner Family; Visit Provider Family Medicine | DX: E03.9 Hypothyroidism, unspecified (principal) | CPT/HCPCS: 36415; 84443 ==